=== PATIENT | male | born 1940 | race Caucasian/White ===

== ENCOUNTER 2017-05-17 20:20 | Inpatient (IN) | payer OTHER ==
[2017-05-17] MEDS ORDERED: ONDANSETRON 4 MG TABLET PO ONE (20:30)
[2017-05-17] MEDS ORDERED: ONDANSETRON *ODT* 4 MG TABLET ONE (20:35)
[2017-05-17 21:33] LABS: BASOPHIL 0.5 % (0-2.0); EOSINOPHIL 0.8 % (0-4.5); MCH 31.1 pg (25.7-33.7); MCHC 33.9 g/dl (32.0-35.9); MEAN CELL VOLUME 91.8 fl (80-96); MEAN PLT VOLUME 8.6 fl (7.5-11.1); NEUTROPHILS 81.2 % (42.8-82.8); PLATELET COUNT 281 K/MM3 (134-434); RDW 12.6 % (11.9-15.9); WHITE BLOOD COUNT 14.3 K/mm3 (4.0-10.0)
[2017-05-17 21:44] LABS: PROTHROMBIN TIME (PATIENT) 57.6 SEC (9.98-11.88)
[2017-05-17 22:01] LABS: INR 5.07 (0.82-1.09)
[2017-05-17] MEDS ORDERED: PHYTONADIONE 5 MG TABLET PO ONE (22:03)
--- NOTE | 2017-05-17 22:03 | PDOC ---
History of Present Illness - General History Source: Patient Exam Limitations: No Limitations - History of Present Illness Initial Comments: The patient is a 76 yo M poor historian with a past medical history significant for chronic AF on anticoagulation, emphysema with long history of cigarette smoking, diverticulitis, hypercholesterolemia, type 2 DM and HTN who presents with confusion. As per the patients daughter, she went to check on him after she didnt hear from him. He reports he hasnt gotten out of bed since yesterday. The patient states he lives alone. He endorses a decreased appetite. PCP: Dr. Castro <Alley Ivy - Last Filed: 05/17/17 22:17> <Saida Mathur - Last Filed: 05/18/17 03:49> - General Chief Complaint: Weakness Stated Complaint: WEAKNESS Time Seen by Provider: 05/17/17 20:26 Past History <Alley Ivy - Last Filed: 05/17/17 22:17> - Past Medical History Cardiac Disorders: Yes (A-FIB) Diabetes: Yes (NIDDM) GI Disorders: (divertivculitis) Hypercholesterolemia: Yes - Psycho/Social/Smoking Cessation Hx Anxiety: No Suicidal Ideation: No Smoking History: Current every day smoker Have you smoked in the past 12 months: Yes Number of Cigarettes Smoked Daily: 20 Information on smoking cessation initiated: No 'Breaking Loose' booklet given: 09/28/14 Hx Alcohol Use: No Drug/Substance Use Hx: No Substance Use Type: None <Saida Mathur - Last Filed: 05/18/17 03:49> - Past Medical History Allergies/Adverse Reactions: Allergies Allergy/AdvReac Type Severity Reaction Status Date / Time amoxicillin trihydrate Allergy Mild Verified 05/17/17 23:52 [From Augmentin] potassium clavulanate AdvReac Unknown Verified 05/17/17 23:52 [From Augmentin] Home Medications: Ambulatory Orders Unobtainable [Unobtainable] 05/17/17 Review of Systems - Review of Systems Able to Perform ROS?: No (Poor historian) <Alley Ivy - Last Filed: 05/17/17 22:17> *Physical Exam - Vital Signs Last Vital Signs Temp Pulse Resp BP Pulse Ox 98.8 F 63 18 158/77 96 05/17/17 20:30 05/17/17 20:30 05/17/17 20:30 05/17/17 20:30 05/17/17 20:30 - Physical Exam Comments: GENERAL: Well developed, well nourished. alert to person and place but not time. Afebrile. No acute distress. HEENT: Normocephalic, atraumatic. PERRLA, EOMI. No conjunctival pallor. Sclera are non- icteric. Moist mucous membranes. Oropharynx is clear. NECK: Supple. Full ROM. No JVD. Carotid pulses 2+ and symmetric, without bruits. No thyromegaly. No lymphadenopathy. CARDIOVASCULAR: Regular rate and rhythm. No murmurs, rubs, or gallops. Distal pulses are 2+ and symmetric. PULMONARY: No evidence of respiratory distress. Bilateral crackles. No wheezing, rales or rhonchi. ABDOMINAL: Soft. Non-tender. Non-distended. No rebound or guarding. No organomegaly. Normoactive bowel sounds. Old surgical scars on abdomen. MUSCULOSKELETAL Normal range of motion at all joints. No bony deformities or tenderness. No CVA tenderness. EXTREMITIES: No cyanosis. No clubbing. No edema. No calf tenderness. SKIN: Warm and dry. Normal capillary refill. No rashes. No jaundice. NEUROLOGICAL: Agnosia- unable to read a digital clock. Following commands. No other focal neurological deficits. PSYCHIATRIC: Cooperative. Good eye contact. Appropriate mood and affect. <Alley Ivy - Last Filed: 05/17/17 22:17> - Vital Signs Last Vital Signs Temp Pulse Resp BP Pulse Ox 98.8 F 63 18 158/77 96 05/17/17 20:30 05/17/17 20:30 05/17/17 20:30 05/17/17 20:30 05/17/17 20:30 <Saida Mathur - Last Filed: 05/18/17 03:49> ED Treatment Course - LABORATORY CBC & Chemistry Diagram: 05/17/17 21:27 05/17/17 21:27 - ADDITIONAL ORDERS Additional order review: Laboratory Results 05/17/17 21:22 INR 5.07 H* D 05/17/17 21:27 RBC 4.67 MCV 91.8 MCHC 33.9 RDW 12.6 MPV 8.6 Neutrophils % 81.2 Lymphocytes % 11.6 D Monocytes % 5.9 Eosinophils % 0.8 Basophils % 0.5 - Medications Given in the ED: ED Medications Discontinued Medications Generic Name Dose Route Start Last Admin Trade Name Freq PRN Reason Stop Dose Admin Ondansetron HCl 4 mg 05/17/17 20:30 05/17/17 20:32 Zofran - PO 05/17/17 20:31 4 mg ONCE ONE Administration <Alley Ivy - Last Filed: 05/17/17 22:17> - LABORATORY CBC & Chemistry Diagram: 05/17/17 21:27 05/17/17 22:53 - ADDITIONAL ORDERS Additional order review: Laboratory Results 05/17/17 21:22 INR 5.07 H* D 05/17/17 21:27 RBC 4.67 MCV 91.8 MCHC 33.9 RDW 12.6 MPV 8.6 Neutrophils % 81.2 Lymphocytes % 11.6 D Monocytes % 5.9 Eosinophils % 0.8 Basophils % 0.5 - RADIOLOGY Radiology Studies Ordered: Category Date Time Status HEAD CT WITHOUT CONTRAST [CT] Stat CT Scan 05/17/17 20:31 Ordered CHEST X-RAY PORTABLE* [RAD] Stat Radiology 05/17/17 20:30 Completed - Medications Given in the ED: ED Medications Discontinued Medications Generic Name Dose Route Start Last Admin Trade Name Freq PRN Reason Stop Dose Admin Ondansetron HCl 4 mg 05/17/17 20:30 05/17/17 20:32 Zofran - PO 05/17/17 20:31 4 mg ONCE ONE Administration <MathurSaida - Last Filed: 05/18/17 03:49> Medical Decision Making - Medical Decision Making 05/17/17 22:05 CXR shows pulmonary congestion EKG rate controlled afib 05/18/17 00:04 BUN/CR acute renal failure Dr. Castor's service called; I spoke to his PA Lonnie Pt will go to ICU; Dr Mathew Longo (nephrology) is on the case. 05/18/17 01:17 Patient Name: Valdemar Shafer THIS IS A PRELIMINARYREPORT FROM [facility] EXAM: CT brain without contrast IMAGES: 159 INDICATION: Altered mental status DATE OF SERVICE: 2017-05-17 23:34:09.0 COMPARISON: none FINDINGS: The ventricular system is midline and nondilated. Mild involutional changes are noted. There is no bleed, mass, extra-axial fluid collection or mass effect. No skull fracture or skull lesion is identified. There is a left maxillary sinus retention cyst or polyp and mild right ethmoid sinus sinus air-fluid levels. The visualized mastoid air cells are clear. IMPRESSION: No acute pathology. THIS DOCUMENT HAS BEEN ELECTRONICALLY SIGNED Head CT normal. Pt received 250 ml bolus saline; I will not give much more in the ER as he has congestion of his lungs and cardiomegaly Pt received ca gluconate, kayexxalate and insulin 10 U and D50 1 amp. 05/18/17 03:49 Py in ICU; accepted by ICU PA <Saida Mathur - Last Filed: 05/18/17 03:49> *DC/Admit/Observation/Transfer - Attestations Scribe Attestion: Documentation prepared by Alley Ivy, acting as manager medical writing for Saida Mathur MD/DO. <Alley Ivy - Last Filed: 05/17/17 22:17> - Discharge Dispostion Admit: Yes <Saida Mathur - Last Filed: 05/18/17 03:49> Diagnosis at time of Disposition: Generalized weakness, Dehydration, moderate, Acute renal failure, HTN ( hypertension), Atrial fibrillation with RVR, Hyperkalemia - Discharge Dispostion Condition at time of disposition: Poor - Referrals
[2017-05-17] MEDS ORDERED: PHYTONADIONE 5 MG TABLET ONE (22:27)
[2017-05-17 23:27] LABS: ALBUMIN 3.1 g/dl (3.4-5.0); ANION GAP 16 (8-16); BILIRUBIN,TOTAL 0.4 mg/dL (0.2-1.0); CALCIUM 8.6 mg/dL (8.5-10.1); CO2 17 mmol/L (21-32); GLUCOSE,RANDOM 86 mg/dL (74-106); SGPT/ALT 16 U/L (12-78); TOT PROT 6.2 g/dl (6.4-8.2)
[2017-05-17 23:38] LABS: ALK PHOS 72 U/L (45-117); CPK 116 IU/L (39-308); TROPONIN I < 0.02 ng/ml (0.00-0.05)
[2017-05-17 23:42] LABS: SGOT/AST 16 U/L (15-37)
[2017-05-17 23:43] LABS: CREATININE 11.6 mg/dL (0.7-1.3)
[2017-05-17] MEDS ORDERED: INSULIN REGULAR HUMAN 100 UNITS/ML *VIAL IVPUSH ONE (23:45)
[2017-05-17] MEDS ORDERED: DEXTROSE 50%-WATER - 25 GM/50 ML VIAL IVPUSH ONE (23:45)
[2017-05-17] MEDS ORDERED: CALCIUM GLUCONATE 10% - 1,000 MG/10 ML VIAL IVPB ONE (23:53)
[2017-05-17] MEDS ORDERED: SODIUM CHLORIDE 0.9% 500 ML INFUS.BAG IV ONE (23:54)
[2017-05-18] MEDS ORDERED: SODIUM POLYSTYRENE SULFONATE 15 GM/60 ML BOTTLE PO ONE (00:02)
[2017-05-18] MEDS ORDERED: DEXTROSE 50%-WATER 50 ML DISP.SYRIN ONE ×2 (00:39→09:14)
[2017-05-18] MEDS ORDERED: CALCIUM CHLORIDE 1 GM/10 ML *DISP.SYRIN ONE (00:39)
[2017-05-18] MEDS ORDERED: SODIUM POLYSTYRENE SULFONATE 15 GM/60 ML BOTTLE ONE (00:39)
[2017-05-18] MEDS ORDERED: HYDROmorphone HCL CARPU-JECT 1 MG/1 ML DISP.SYRIN ONE (03:42)
[2017-05-18] MEDS ORDERED: MIDAZOLAM HCL 2 MG/2 ML SINGLE DOSE VIAL ONE ×2 (03:51→06:11)
[2017-05-18] MEDS ORDERED: LIDOCAINE HCL 2% JELLY (30 ML/TUBE) TP ONE (03:52)
[2017-05-18] MEDS ORDERED: MIDAZOLAM HCL 2 MG/2 ML SINGLE DOSE VIAL IVPUSH ONE ×2 (03:53→04:28)
[2017-05-18] MEDS ORDERED: SODIUM CHLORIDE 0.9% 1000 ML INFUS.BAG IV ONE (03:58)
[2017-05-18] MEDS ORDERED: CALCIUM GLUCONATE 10% - 1,000 MG/10 ML VIAL IVPB ONE ×2 (04:28→09:00)
[2017-05-18] MEDS ORDERED: HYDROmorphone HCL CARPU-JECT 1 MG/1 ML DISP.SYRIN IVPUSH ONE (04:30)
[2017-05-18 05:19] VITALS: BMI 31.9
[2017-05-18 06:31] LABS: PROTHROMBIN TIME (PATIENT) 53.9 SEC (9.98-11.88)
[2017-05-18 06:41] LABS: INR 4.75 (0.82-1.09)
[2017-05-18 06:44] LABS: MAGNESIUM 2.5 mg/dL (1.8-2.4)
--- NOTE | 2017-05-18 07:04 | CONSULT ---
Consult - text type - Consultation Consultation Note: PULM/CCM Pt seen and examined in the ICU CC: Altered mental status Hx obtained from pt (poor historian/altered) and medical record. No Family available HPI: Mr Shafer is a 76 yo M with past medical history significant for chronic AF on anticoagulation/coumadin, emphysema , diverticulitis, hypercholesterolemia, type 2 DM and HTN who presented from home with confusion. ED reports pts daughter went to check on him after she didnt hear from him for > 24hrs. He lives alone and has sporatic help from family. Though confused pt states he had poor intake for last few days, unable to say why. On finding pt altered family brought pt to ED. In ED pt was normothermic, hypertensive, without resp distress, spo2 93% RA. Pt was agitated and altered. CT head was unremarkable. Labs were notable for BUN/ CR 109/11 (Cr previous 0.9), Hco3 17, K 7.8. INR 5 Dig level slightly elevated. There was no QRS widening or other acute hyperkalemic EKG changes. Pt received Insulin/D50, Ca++, NaHCO3 and kayexalate. Received vit K for INR. WBC was 14. H /H 14/42. Pt was transferred to ICU for further care and likely urgent [facility]. In ICU pt was agaitated, intermittently combative. He required sedatives for dutton insertion, with only trace UOP. Pt appeared clinically dry, IV fluid given. Afebrile and no localizing complaints, no abx given. CXR with some ? vascular congestion but no focal infiltrate. Nephrology consult called. 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, Vital Signs Temp 98.5 F 05/18/17 03:00 Pulse 79 05/18/17 04:00 Resp 18 05/18/17 04:00 BP 170/72 05/18/17 04:00 Pulse Ox 96 05/18/17 04:00 Intake & Output 05/17/17 05/17/17 05/18/17 11:59 23:59 11:59 Output Total 35 Balance -35 Weight 130.181 kg 118.977 kg Output: Urine 35 Dutton 35 Other: Voiding Method Urinal Urinal Height 6 ft 4 in 6 ft 4 in Body Mass Index (BMI) 34.9 31.9 Weight Measurement Method Est/Stated by Patient Ambulatory Orders Unobtainable [Unobtainable] 05/17/17, know to be on coumadin Active Medications Chlorhexidine Gluconate (Hibiclens For Decolonization -) 1 applic TP HS BURKE Diltiazem HCl (Cardizem Cd -) 120 mg PO DAILY BURKE Metoprolol Tartrate (Lopressor -) 50 mg PO BID BURKE Mupirocin (Bactroban Ointment (For Decolonization) -) 1 applic NS BID BURKE Stop: 05/23/17 09:59 Lab Results WBC 14.3 K/mm3 (4.0-10.0) H D 05/17/17 21:27 RBC 4.67 M/mm3 (4.00-5.60) 05/17/17 21:27 Hgb 14.5 GM/dL (11.7-16.9) D 05/17/17 21:27 Hct 42.9 % (35.4-49) 05/17/17 21:27 MCV 91.8 fl (80-96) 05/17/17 21:27 MCHC 33.9 g/dl (32.0-35.9) 05/17/17 21:27 RDW 12.6 % (11.9-15.9) 05/17/17 21:27 Plt Count 281 K/MM3 (134-434) 05/17/17 21:27 Sodium 132 mmol/L (136-145) L 05/17/17 22:53 Potassium 7.8 mmol/L (3.5-5.1) H* D 05/17/17 22:53 Chloride 99 mmol/L (98-107) 05/17/17 22:53 Carbon Dioxide 17 mmol/L (21-32) L D 05/17/17 22:53 Anion Gap 16 (8-16) 05/17/17 22:53 BUN 109 mg/dL (7-18) H* D 05/17/17 22:53 Creatinine 11.6 mg/dL (0.7-1.3) H* D 05/17/17 22:53 Random Glucose 86 mg/dL (74-106) 05/17/17 22:53 Calcium 8.6 mg/dL (8.5-10.1) 05/17/17 22:53 INR 4.75 (0.82-1.09) H* 05/18/17 05:50 Dig 2.05 PE: Neuro: awake, answers simple questions, A & O to self only, agitated, perseverating, STALEY X 4 HEENT: PERRL, dry oral mucosa, flat neck veins, no thrush PULM: clear anteriorly, no wheezes, no distress CV: irreg, no m/r/g appreciated ABD: soft, NT, ND EXT: no edema, no rash A/ 76 y/o man with hx of htn, afib on A/c presenting with uremic encephalopathy and acute renal failure P/ -medical management of hyperkalemia, BID EKG -volume resuscitation -check urine lytes and urinalysis -renal US -will discuss HD with nephrology, will place cath if no UOP -broader renal workup depending on response to volume -cont to hold coumadin, slow correction with Vit K -low threshold for abx -hold dig in setting of renal failure -obtain hx from family when available -ICU monitoring -add ppi due to renal failure and super therapeutic INR -? etoh hx, monitor for s/s of withdrawal, CIWA gavin Bean [facility] [id number] Critical Care Total Critical Care Time (in minutes): 35 Critical Care Statement: The care of this patient involved high complexity decision making to prevent further life threatening deterioration of the patient 's condition and/or to evalute & treat vital organ system(s) failure or risk of failure.
[2017-05-18] MEDS ORDERED: PHYTONADIONE 10 MG/1 ML AMP IVPB ONE (07:42)
--- NOTE | 2017-05-18 07:42 | CON.NEP ---
Consult Consult Specialty:: Nephrolgoy Referred by:: Gloria Reason for Consultation:: Acute Renal Failure - History of Present Illness Chief Complaint: Altered Mental Status History of Present Illness: This is a 76 year old gentleman with PMhx of Afib on Coumadin, COPD, Hyperlipidemia, DM Type 2, Hypertension who presented with AMS and found to have BUN/Cr of 109/11 and K of 7.8. Pt with baseline Cr of 0.8 11/2015. Daughter who talks to the patient over the phone daily was not able to contact him for 24 hours and when she checked on him was very confused and not himself. No hx of CKD reported. Pt very agitated overnight but when asked about NSAID use he denied it. Pt given 2L of NS overnight and pt has no urine output via the dutton catheter. Hyperkalemia treated medically overnight with Insulin/Calcium Gluconate/Kayexalate/IVF. 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 Travel: No Home Medications - Allergies Allergies/Adverse Reactions: Allergies Allergy/AdvReac Type Severity Reaction Status Date / Time amoxicillin trihydrate Allergy Mild Verified 05/17/17 23:52 [From Augmentin] potassium clavulanate AdvReac Unknown Verified 05/17/17 23:52 [From Augmentin] - Home Medications Home Medications: Ambulatory Orders Unobtainable [Unobtainable] 05/17/17 Family Disease History - Family Disease History Family History: Unable to Obtain Review of Systems Unable to obtain ROS, reason: pt is confused Nephrology Consult - Height Height: 6 ft 4 in - Weight Weight: 262 lb 4.8 oz - BMI Body Mass Index (BMI): 31.9 - Lab Results Anion Gap: Anion Gap Anion Gap 16 (8-16) 05/17/17 22:53 - Imaging Chest X-ray: Report Reviewed, Image Reviewed - Physical Examination Vital Signs: Vital Signs Temperature 98.5 F 05/18/17 03:00 Pulse Rate 79 05/18/17 04:00 Respiratory Rate 18 05/18/17 04:00 Blood Pressure 170/72 05/18/17 04:00 O2 Sat by Pulse Oximetry (%) 96 05/18/17 04:00 Constitutional: Yes: No Distress HENT: Yes: Atraumatic Neck: Yes: Supple Cardiovascular: Yes: Regular Rate and Rhythm, S1, S2. No: JVD, Murmur, Rub Respiratory: Yes: Regular, CTA Bilaterally, Diminished. No: Rales, Rhonchi Gastrointestinal: Yes: Normal Bowel Sounds, Soft, Abdomen, Obese. No: Tenderness Renal/: Yes: Anuria, Dutton Present. No: Bladder Distention, CVA Tenderness - Left, Hematuria Edema: No Neurological: Yes: Confusion. No: Alert, Oriented, Asterixis Problem List - Problems (1) Acute renal failure Code(s): N17.9 - ACUTE KIDNEY FAILURE, UNSPECIFIED (2) Atrial fibrillation with RVR Code(s): I48.91 - UNSPECIFIED ATRIAL FIBRILLATION (3) HTN (hypertension) Code(s): I10 - ESSENTIAL (PRIMARY) HYPERTENSION (4) Hyperkalemia Code(s): E87.5 - HYPERKALEMIA (5) Uremia Code(s): N19 - UNSPECIFIED KIDNEY FAILURE (6) Metabolic acidosis Code(s): E87.2 - ACIDOSIS (7) Hyperphosphatemia Code(s): E83.39 - OTHER DISORDERS OF PHOSPHORUS METABOLISM (8) Hyponatremia Code(s): E87.1 - HYPO-OSMOLALITY AND HYPONATREMIA Assessment/Plan 76 year old gentleman with PMhx of Afib on Coumadin, COPD, Hyperlipidemia, DM Type 2, Hypertension who presented with AMS and found to have BUN/Cr of 109/11 and K of 7.8. #Acute Renal failure with hyperkalemia Differential includes ATN (severe volume depletion +/- medication) vs. obstruction vs. GN (less likely) CPK is within normal limtis so less likely Rhabdo EKG showed no peaked T-waves, no wide QRS s/p IVF last night w/o improvement in renal function Urine studies are pending Check Tox screen Dutton in place pt with persistent hyperkalmeia refractory to medical management and uremia and thus required emergent dialysis Will plan for dialysis today and tomorrow Renal diet Discussed dialysis with daughter who agrees to proceed. She is aware of the complications of dialysis and dialysis catheter insertion including but not limited to bleeding, pneumothorax, hypotension, and allergic reactions. Given pt had normal renal function last year, expected that this is a acute process and that he should recover his renal function Dose all meds for Cr Cl less then 10 Keep MAP > 65 #Metabolic acidosis in setting of renal failure Check ABG may warrent bicarb if ph < 7.2 #Leukocytosis Check blood and urine cultures
[2017-05-18 07:55] LABS: ANION GAP 15 (8-16); BILIRUBIN,TOTAL 0.3 mg/dL (0.2-1.0); CALCIUM 8.2 mg/dL (8.5-10.1); CO2 16 mmol/L (21-32); GLUCOSE,RANDOM 83 mg/dL (74-106); SGOT/AST 9 U/L (15-37); SGPT/ALT 16 U/L (12-78)
[2017-05-18 08:00] LABS: ALK PHOS 65 U/L (45-117)
[2017-05-18 08:37] LABS: BASOPHIL 0.7 % (0-2.0); EOSINOPHIL 0.9 % (0-4.5); MCH 31.3 pg (25.7-33.7); MCHC 33.9 g/dl (32.0-35.9); MEAN CELL VOLUME 92.2 fl (80-96); MEAN PLT VOLUME 8.5 fl (7.5-11.1); NEUTROPHILS 81.1 % (42.8-82.8); PLATELET COUNT 259 K/MM3 (134-434); WHITE BLOOD COUNT 13.3 K/mm3 (4.0-10.0)
--- NOTE | 2017-05-18 08:41 | PROC ---
Central Line Insertion Indication: Other (Hemodialysis) Risks and Benefits Explained: Yes Consent on Chart: Yes (Daughter via phone) Central Line: Dialysis Cath, Tri Lumen Anesthesia: 1% Lidocaine Sterile Technique: Yes Ultrasound Guided Assistance: Yes Position: Right Internal Jugular Post Insertion: Yes: Bilateral Breath Sounds, Chest X-Ray Ordered Sterile Dressing Applied: Yes Remarks: required ativan 2mg IV as agitated, combative, and coagulopathic
[2017-05-18] MEDS ORDERED: INSULIN REGULAR HUMAN 100 UNITS/ML *VIAL IVPUSH ONE (09:00)
[2017-05-18] MEDS ORDERED: SODIUM POLYSTYRENE SULFONATE 15 GM/60 ML BOTTLE RC ONE (09:00)
[2017-05-18] MEDS ORDERED: DEXTROSE 50%-WATER - 25 GM/50 ML VIAL IVPUSH ONE (09:00)
[2017-05-18 09:26] LABS: ARTERIAL BLD GAS O2 SATURATION 96.7 % (90-98.9); ARTERIAL BLOOD GAS HCO3 15.1 meq/L (22-26); ARTERIAL BLOOD GAS PO2 90.1 mmHg (70-100)
[2017-05-18 09:31] LABS: ALLENS TEST POSITIVE; ART PUNCT SITE LEFT RADIAL; LPM/O2% 2L; PT. ON O2? YES; TYPE OF O2 NASAL
[2017-05-18] MEDS: MUPIROCIN 2% TOPICAL OINTMENT FOR DECOLONIZATION NS SCH ×2 (09:33→21:25)
[2017-05-18 09:58] LABS: URINE APPEARANCE SLCLOUDY; URINE BILIRUBIN NEGATIVE (NEGATIVE); URINE BLOOD 1+ (NEGATIVE); URINE COLOR LTYELLOW; URINE GLUCOSE (UA) NEGATIVE (NEGATIVE); URINE KETONE TRACE (NEGATIVE); URINE LEUK ESTERASE NEGATIVE (NEGATIVE); URINE NITRITE NEGATIVE (NEGATIVE); URINE UROBILINOGEN NEGATIVE mg/dL (0.2-1.0)
[2017-05-18 10:00] LABS: URINE PROTEIN 1+ (NEGATIVE)
[2017-05-18] MEDS ORDERED: HEPARIN NA (PORCINE) 5,000 UNITS/ML 1ML VIAL SQ SCH (10:00)
[2017-05-18 10:07] LABS: URINE BACTERIA RARE /hpf (NONE SEEN); URINE MUCUS RARE; URINE RBC 4 /hpf (0-3)
[2017-05-18 11:12] LABS: URINE CREATININE 56.1 mg/dL (20-370)
[2017-05-18] MEDS ORDERED: hydrALAZINE HCL 20 MG/ML VIAL IVPUSH PRN (14:21)
--- NOTE | 2017-05-18 15:09 | CON.CARD ---
Consult Consult Specialty:: Cardiology Reason for Consultation:: Renal Failure - History of Present Illness History of Present Illness: 76 M with chronic Afib who was admitted with mental status changes. As per EMR he had been on coumadin. He has acute renal failure with refractory hyperkalemia , an initial INR 5 and Digoxin was 2. Previous echocardiogram in 2016 was normal. There is no reported history of CAD. CXR showed interstitial markings. He is post emergent Dialysis. Currently, he is somnolent, opens eyes but easily falls asleep. 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 Travel: No Home Medications - Allergies Allergies/Adverse Reactions: Allergies Allergy/AdvReac Type Severity Reaction Status Date / Time amoxicillin trihydrate Allergy Mild Verified 05/17/17 23:52 [From Augmentin] potassium clavulanate AdvReac Unknown Verified 05/17/17 23:52 [From Augmentin] - Home Medications Home Medications: Ambulatory Orders Unobtainable [Unobtainable] 05/17/17 Review of Systems Unable to obtain ROS, reason: Altered MS Vital Signs: Vital Signs Temperature 98.8 F 05/18/17 12:10 Pulse Rate 97 H 05/18/17 14:45 Respiratory Rate 22 05/18/17 14:45 Blood Pressure 178/113 05/18/17 14:45 O2 Sat by Pulse Oximetry (%) 96 05/18/17 12:00 Constitutional: Yes: Mild Distress HENT: Yes: Atraumatic, Normocephalic Respiratory: Yes: CTA Bilaterally Gastrointestinal: Yes: Normal Bowel Sounds, Soft Cardiovascular: Yes: Pulse Irregular Heart Sounds: Yes: S1, S2 Edema: No Peripheral Pulses WNL: Yes Neurological: Yes: Lethargy - Other Data Labs, Other Data: CBC, BMP 05/18/17 05:50 05/18/17 05:50 INR, PTT INR 4.75 (0.82-1.09) H* 05/18/17 05:50 Laboratory Tests 05/17/17 05/18/17 21:27 05:50 INR 4.75 H* Digoxin 2.1839 H Echo: Report Reviewed Ejection Fraction %: LVEF > or = 40 % Imaging - Results Chest X-ray: Report Reviewed Problem List - Problems (1) Acute renal failure Code(s): N17.9 - ACUTE KIDNEY FAILURE, UNSPECIFIED (2) Atrial fibrillation with RVR Code(s): I48.91 - UNSPECIFIED ATRIAL FIBRILLATION (3) HTN (hypertension) Code(s): I10 - ESSENTIAL (PRIMARY) HYPERTENSION Assessment/Plan 76 M with chronic Afib on digoxin and reportedly on coumadin admitted with acute renal failure with severe hyperkalemia and mild volume overload. He is post emergent HD. 1. elevated Digoxin level. Without overt toxicity. Continue to follow. Digibind is not indicated at this time. 2. HR controlled on BB and CCB 3. To go for a repeat head CT given continued MS change. INR improving with conservative management. Holding coumadin 4. Suggest repeating echocardiogram to reassess EF.
[2017-05-18 15:10] LABS: ARTERIAL BLD GAS O2 SATURATION 97.9 % (90-98.9); ARTERIAL BLOOD GAS BASE EXCESS -3.6 meq/l (-2-2); ARTERIAL BLOOD GAS pH 7.35 (7.35-7.45)
[2017-05-18 15:13] LABS: LPM/O2% 3L; PT. ON O2? YES; TYPE OF O2 NASAL O2
[2017-05-18 15:14] LABS: ARTERIAL BLOOD GAS HCO3 21.2 meq/L (22-26)
[2017-05-18] MEDS: METOPROLOL TARTRATE 50 MG TABLET (FP) PO SCH ×2 (16:50→21:25)
--- NOTE | 2017-05-18 16:53 | HP ---
Admitting History and Physical - Primary Care Physician PCP: Maye Castro - Admission Chief Complaint: AMS History of Present Illness: The patient is a 76 yo M poor historian with a past medical history significant for chronic AF on anticoagulation, emphysema with long history of cigarette smoking, diverticulitis, hyperlipidemia, type 2 DM and HTN who presented to [facility] ED with confusion. As per patient's tenant in the room, his daughter Fidel called the tenant to check on his father because she had not spoken to him over 24 hours. After the tenant went in the apartment to check on the patient, patient was lying in bed, lethargic but responsive, saying he doesn't feel good. Tenant called the ambulance, patient was awake and alert and was able to transfer himself. After coming to the ER, he slowly deteriorated. He was found to be in acute renal failure, emergent dialysis was needed. Nephrology was called in. 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 Travel: No Home Medications - Allergies Allergies/Adverse Reactions: Allergies Allergy/AdvReac Type Severity Reaction Status Date / Time amoxicillin trihydrate Allergy Mild Verified 05/17/17 23:52 [From Augmentin] potassium clavulanate AdvReac Unknown Verified 05/17/17 23:52 [From Augmentin] - Home Medications Home Medications: Ambulatory Orders Unobtainable [Unobtainable] 05/17/17 Review of Systems Unable to obtain ROS, reason: unable obtain due Physical Examination Vital Signs: Vital Signs Temperature 98.8 F 05/18/17 12:10 Pulse Rate 90 05/18/17 16:00 Respiratory Rate 18 05/18/17 16:00 Blood Pressure 179/87 05/18/17 16:00 O2 Sat by Pulse Oximetry (%) 96 05/18/17 12:00 Constitutional: Yes: Well Nourished, No Distress, Calm Cardiovascular: Yes: Regular Rate and Rhythm Respiratory: Yes: Regular Gastrointestinal: Yes: Normal Bowel Sounds Musculoskeletal: Yes: WNL Extremities: Yes: WNL Edema: No Peripheral Pulses WNL: Yes Neurological: Yes: Alert (responds to name), Confusion, Lethargy Psychiatric: Yes: Alert Labs: CBC, BMP 05/18/17 05:50 05/18/17 05:50 Problem List - Problems (1) Acute renal failure Assessment/Plan: -dialysis this afternoon -nephrology on case -repeat labs Code(s): N17.9 - ACUTE KIDNEY FAILURE, UNSPECIFIED (2) Atrial fibrillation with RVR Assessment/Plan: -chronic - hold AC for now Code(s): I48.91 - UNSPECIFIED ATRIAL FIBRILLATION (3) Dehydration, moderate Code(s): E86.0 - DEHYDRATION (4) Generalized weakness Code(s): R53.1 - WEAKNESS (5) Hyperkalemia Assessment/Plan: gradually improving dialysis again in AM Code(s): E87.5 - HYPERKALEMIA (6) HTN (hypertension) Assessment/Plan: IV hydralazine PRN Code(s): I10 - ESSENTIAL (PRIMARY) HYPERTENSION Assessment/Plan dialysis labs nephrology consult hold AC IV hydralazine PRN for HTN GI prophylaxis
[2017-05-18 19:03] LABS: BASOPHIL 0.3 % (0-2.0); EOSINOPHIL 0.4 % (0-4.5); MCH 31.5 pg (25.7-33.7); MCHC 34.3 g/dl (32.0-35.9); MEAN CELL VOLUME 91.7 fl (80-96); MEAN PLT VOLUME 8.6 fl (7.5-11.1); NEUTROPHILS 85.2 % (42.8-82.8); PLATELET COUNT 242 K/MM3 (134-434); RDW 12.8 % (11.9-15.9); WHITE BLOOD COUNT 15.6 K/mm3 (4.0-10.0)
[2017-05-18 19:35] LABS: ANION GAP 12 (8-16); CALCIUM 8.5 mg/dL (8.5-10.1); CO2 21 mmol/L (21-32); GLUCOSE,RANDOM 102 mg/dL (74-106); SGOT/AST 11 U/L (15-37); SGPT/ALT 16 U/L (12-78)
[2017-05-18 19:41] LABS: ALK PHOS 65 U/L (45-117); BILIRUBIN,TOTAL 0.6 mg/dL (0.2-1.0); TOT PROT 5.9 g/dl (6.4-8.2)
[2017-05-18 19:43] LABS: CREATININE 9.5 mg/dL (0.7-1.3)
[2017-05-18] MEDS ORDERED: LABETALOL HCL 5 MG/1 ML (100MG/20 ML VIAL) IVPUSH ONE (20:54)
[2017-05-18] MEDS: CHLORHEXIDINE GLUCONATE 4% CLEANSER FOR DECOLONIZATION TP SCH (21:25)
--- NOTE | 2017-05-19 06:29 | PN ---
Progress Note (short form) - Note Progress Note: PULMONARY/CRITICAL CARE FOLLOW UP: Pt seen and examined in the ICU - on hemodialysis 24HOUR EVENTS: -Tolerated 1st session of HD, more awake, but remains uremic - repeat head CT negative -Getting HD again now -Minimal UOP Current Medications Chlorhexidine Gluconate (Hibiclens For Decolonization -) 1 applic TP HS [facility] Last Admin: 05/18/17 21:25 Dose: 1 applic Diltiazem HCl (Cardizem Cd -) 120 mg PO DAILY [facility] Last Admin: 05/18/17 16:50 Dose: Not Given Hydralazine HCl (Apresoline Injection -) 20 mg IVPUSH Q6H PRN PRN Reason: HYPERTENSION Last Admin: 05/18/17 16:52 Dose: 20 mg Pantoprazole Sodium (Protonix 40mg Ivpb (Pre-Docked)) 100 mls @ 200 mls/hr IVPB DAILY [facility] Lorazepam (Ativan Injection -) 1 mg IVPUSH Q4H PRN PRN Reason: ANXIETY Stop: 05/19/17 07:49 Last Admin: 05/18/17 08:00 Dose: 1 mg Metoprolol Tartrate (Lopressor -) 50 mg PO BID [facility] Last Admin: 05/18/17 21:25 Dose: Not Given Mupirocin (Bactroban Ointment (For Decolonization) -) 1 applic NS BID [facility] Stop: 05/23/17 09:59 Last Admin: 05/18/17 21:25 Dose: 1 applic Vital Signs Temp 98.5 F 05/19/17 05:55 Pulse 98 H 05/19/17 06:00 Resp 17 05/19/17 06:00 BP 177/80 05/19/17 06:00 Pulse Ox 99 05/18/17 20:00 Intake & Output 05/18/17 05/18/17 05/19/17 06:59 18:59 06:59 Intake Total 1999 200 Output Total 70 25 50 Balance 1930 175 -50 Weight 118.977 kg 118.977 kg Intake: IV 2000 NS bolus 1000 Calcium gluconate 1000 IVPB 200 Output: Urine 70 25 50 [place] 70 25 50 Other: Voiding Method Urinal Indwelling Catheter Indwelling Catheter Bowel Movement No No Height 6 ft 4 in 6 ft 4 in Body Mass Index (BMI) 31.9 31.9 Weight Measurement Method Est/Stated by Patient PE: Neuro: awake, answers some questions, follows commands, but only oriented to person HEENT: PERRL, dry oral mucosa PULM: clear anteriorly, no wheezes, no distress CV: irreg, no m/r/g appreciated ABD: soft, NT, ND EXT: no edema, no rash Labs: pending ASSESSMENT 76 y/o man with hx of htn, afib on A/c presenting with uremic encephalopathy and acute renal failure of unclear origin PLAN -HD per renal -renal US pending -cont to hold coumadin, restart or use Heparin drip once INR <2.0 -low threshold for abx -hold dig in setting of renal failure - will use Dilt for rate control -obtain hx from family when available -ICU monitoring -GI PPx -? etoh hx, monitor for s/s of withdrawal Continue to monitor in ICU Critically Ill 35min Baltazar August Pulm/Critical Care [employer] [id number]
[2017-05-19 06:31] LABS: MCH 31.4 pg (25.7-33.7); MCHC 34.4 g/dl (32.0-35.9); MEAN CELL VOLUME 91.4 fl (80-96); MEAN PLT VOLUME 7.9 fl (7.5-11.1); PLATELET COUNT 229 K/MM3 (134-434); RDW 12.6 % (11.9-15.9); WHITE BLOOD COUNT 14.3 K/mm3 (4.0-10.0)
[2017-05-19 07:16] LABS: ALBUMIN 2.9 g/dl (3.4-5.0); ALK PHOS 64 U/L (45-117); ANION GAP 13 (8-16); BILIRUBIN,TOTAL 0.5 mg/dL (0.2-1.0); CALCIUM 8.3 mg/dL (8.5-10.1); CO2 21 mmol/L (21-32); GLUCOSE,RANDOM 78 mg/dL (74-106); MAGNESIUM 2.3 mg/dL (1.8-2.4); PHOSPHOROUS 6.7 mg/dL (2.5-4.9); SGOT/AST 15 U/L (15-37); SGPT/ALT 17 U/L (12-78); TOT PROT 5.7 g/dl (6.4-8.2)
[2017-05-19] MEDS ORDERED: HEPARIN NA (PORCINE) 5,000 UNITS/ML 1ML VIAL IVPUSH ONE (07:26)
[2017-05-19 07:40] LABS: CREATININE 10.8 mg/dL (0.7-1.3)
[2017-05-19] MEDS: HEPARIN NA (PORCINE) 5,000 UNITS/ML 1ML VIAL IVPUSH SCH ×3 (08:00→08:33)
[2017-05-19 08:10] LABS: HEP B SURFACE AB Non Reactive (.)
--- NOTE | 2017-05-19 08:12 | EKG ---
Test Reason : Blood Pressure : / mmHG Vent. Rate : 058 BPM Atrial Rate : 250 BPM P-R Int : 000 ms QRS Dur : 100 ms QT Int : 372 ms P-R-T Axes : 000 -45 021 degrees QTc Int : 365 ms POOR DATA QUALITY, INTERPRETATION MAY BE ADVERSELY AFFECTED ATRIAL FIBRILLATION WITH SLOW VENTRICULAR RESPONSE LEFT AXIS DEVIATION ABNORMAL ECG WHEN COMPARED WITH ECG OF 30-NOV-2015 08:57, VENT. RATE HAS DECREASED BY 49 BPM QT HAS SHORTENED Confirmed by DWIGHT ELIZABETH, JUAN PABLO ([id number]) on 05/19/2017 8:12:15 AM Referred By: Confirmed By:JUAN PABLO QUINTANILLA MD
--- NOTE | 2017-05-19 08:45 | PN ---
Progress Note (short form) - Note Progress Note: Renal Follow up for SILAS Pt seen and examined in the ICU on dialysis awake and alert but confused dialysis via IJ catheter, good flow, BP stable will extend Hd tx by 30 minutes as pt with K of 6.2 very agitated yesterday Vital Signs Temperature 97.6 F 05/19/17 07:06 Pulse Rate 98 H 05/19/17 08:35 Respiratory Rate 18 05/19/17 08:35 Blood Pressure 156/75 05/19/17 08:35 O2 Sat by Pulse Oximetry (%) 99 05/18/17 20:00 Intake & Output 05/16/17 05/17/17 05/18/17 05/19/17 23:59 23:59 23:59 23:59 Intake Total 2200 Output Total 115 30 Balance 2084 Weight 287 lb 262 lb 4.8 oz 259 lb Gen: awake and alert but confused CVS: tachycardic no murmur or rub Lungs: CTA, anterior exam Abd: soft NT/ND Ext: No edema, clubbing or cyanosis : no bladder distension, dutton catheter in place CBC, BMP 05/19/17 06:00 05/19/17 06:00 Laboratory Tests 05/19/17 06:00 Calcium 8.3 L Albumin 2.9 L Current Medications Chlorhexidine Gluconate (Hibiclens For Decolonization -) 1 applic TP HS [facility] Last Admin: 05/18/17 21:25 Dose: 1 applic Diltiazem HCl (Cardizem Cd -) 120 mg PO DAILY [facility] Last Admin: 05/18/17 16:50 Dose: Not Given Heparin Sodium (Porcine) (Heparin -) 500 unit IVPUSH Q1H [facility] Stop: 05/19/17 09:31 Last Admin: 05/19/17 08:33 Dose: Not Given Hydralazine HCl (Apresoline Injection -) 20 mg IVPUSH Q6H PRN PRN Reason: HYPERTENSION Last Admin: 05/18/17 16:52 Dose: 20 mg Pantoprazole Sodium (Protonix 40mg Ivpb (Pre-Docked)) 100 mls @ 200 mls/hr IVPB DAILY [facility] Metoprolol Tartrate (Lopressor -) 50 mg PO BID [facility] Last Admin: 05/18/17 21:25 Dose: Not Given Mupirocin (Bactroban Ointment (For Decolonization) -) 1 applic NS BID [facility] Stop: 05/23/17 09:59 Last Admin: 05/18/17 21:25 Dose: 1 applic A/P 76 year old gentleman with PMhx of Afib on Coumadin, COPD, Hyperlipidemia, DM Type 2, Hypertension who presented with AMS and found to have BUN/Cr of 109/11 and K of 7.8. #Acute Renal failure with hyperkalemia Etiology of SILAS is likey ATN (severe volume depletion +/- medication) FeNa was 9% indicating tubular injury CPK is within normal limits so less likely Rhabdo currently getting 2nd HD treatment pt remains oliguric continue IVF Keep MAP> 65 avoid nephrotoxins will continue HD as needed Donta Carmona Problem List - Problems (1) Acute renal failure Code(s): N17.9 - ACUTE KIDNEY FAILURE, UNSPECIFIED (2) Atrial fibrillation with RVR Code(s): I48.91 - UNSPECIFIED ATRIAL FIBRILLATION (3) HTN (hypertension) Code(s): I10 - ESSENTIAL (PRIMARY) HYPERTENSION (4) Hyperkalemia Code(s): E87.5 - HYPERKALEMIA (5) Uremia Code(s): N19 - UNSPECIFIED KIDNEY FAILURE (6) Metabolic acidosis Code(s): E87.2 - ACIDOSIS (7) Hyperphosphatemia Code(s): E83.39 - OTHER DISORDERS OF PHOSPHORUS METABOLISM (8) Hyponatremia Code(s): E87.1 - HYPO-OSMOLALITY AND HYPONATREMIA
[2017-05-19] MEDS ORDERED: METOPROLOL TARTRATE 5 MG/5 ML VIAL ONE (10:54)
[2017-05-19] MEDS: METOPROLOL TARTRATE 5 MG/5 ML VIAL IVPUSH SCH ×2 (10:56→22:02)
[2017-05-19] MEDS: MUPIROCIN 2% TOPICAL OINTMENT FOR DECOLONIZATION NS SCH ×2 (10:57→22:03)
[2017-05-19] MEDS: PANTOPRAZOLE SODIUM 100 ML IVPB SCH (10:58)
[2017-05-19 11:19] LABS: EOSINOPHIL 1.7 % (0-4.5); NEUTROPHILS 78.9 % (42.8-82.8)
[2017-05-19 11:20] LABS: BASOPHIL 0.5 % (0-2.0)
[2017-05-19 11:44] LABS: BASOPHIL 0.4 % (0-2.0); MCH 30.9 pg (25.7-33.7); MCHC 33.9 g/dl (32.0-35.9); MEAN CELL VOLUME 91.4 fl (80-96); MEAN PLT VOLUME 7.6 fl (7.5-11.1); PLATELET COUNT 212 K/MM3 (134-434); RDW 12.9 % (11.9-15.9)
[2017-05-19 11:57] LABS: INR 1.36 (0.82-1.09)
[2017-05-19 12:10] LABS: ALBUMIN 2.8 g/dl (3.4-5.0); ANION GAP 10 (8-16); BILIRUBIN,TOTAL 0.5 mg/dL (0.2-1.0); CALCIUM 7.8 mg/dL (8.5-10.1); CO2 26 mmol/L (21-32); GLUCOSE,RANDOM 112 mg/dL (74-106); SGOT/AST 13 U/L (15-37); SGPT/ALT 18 U/L (12-78); TOT PROT 5.4 g/dl (6.4-8.2)
[2017-05-19 12:16] LABS: ALK PHOS 64 U/L (45-117)
[2017-05-19 12:49] LABS: CREATININE 8.2 mg/dL (0.7-1.3)
--- NOTE | 2017-05-19 15:38 | PN ---
Progress Note, Physician Chief Complaint: AMS, hyperkalemia, Acute renal failure History of Present Illness: The patient is a 76 yo M poor historian with a past medical history significant for chronic AF on anticoagulation, emphysema with long history of cigarette smoking, diverticulitis, hyperlipidemia, type 2 DM and HTN who presented to [facility] ED with confusion. As per patient's tenant in the room, his daughter Fidel called the tenant to check on his father because she had not spoken to him over 24 hours. After the tenant went in the apartment to check on the patient, patient was lying in bed, lethargic but responsive, saying he doesn't feel good. Tenant called the ambulance, patient was awake and alert and was able to transfer himself. After coming to the ER, he slowly deteriorated. He was found to be in acute renal failure, emergent dialysis was needed. Nephrology was called in. He received second dialysis today, is doing better, alert but still confused, lethargic. - Current Medication List Current Medications: Active Medications Chlorhexidine Gluconate (Hibiclens For Decolonization -) 1 applic TP HS [facility] Last Admin: 05/18/17 21:25 Dose: 1 applic Diltiazem HCl (Cardizem Cd -) 120 mg PO DAILY [facility] Last Admin: 05/18/17 16:50 Dose: Not Given Heparin Sodium (Porcine) (Heparin -) 5,000 unit SQ BID [facility] Hydralazine HCl (Apresoline Injection -) 20 mg IVPUSH Q6H PRN PRN Reason: HYPERTENSION Last Admin: 05/18/17 16:52 Dose: 20 mg Pantoprazole Sodium (Protonix 40mg Ivpb (Pre-Docked)) 100 mls @ 200 mls/hr IVPB DAILY [facility] Last Admin: 05/19/17 10:58 Dose: 200 mls/hr Metoprolol Tartrate (Lopressor Injection -) 10 mg IVPUSH BID [facility] Last Admin: 05/19/17 10:56 Dose: 10 mg Mupirocin (Bactroban Ointment (For Decolonization) -) 1 applic NS BID [facility] Stop: 05/23/17 09:59 Last Admin: 05/19/17 10:57 Dose: 1 applic Warfarin Sodium (Coumadin -) 5 mg PO DAILY@1800 [facility] - Objective Vital Signs: Vital Signs Temperature 97.6 F 05/19/17 07:06 Pulse Rate 82 05/19/17 12:00 Respiratory Rate 18 05/19/17 12:00 Blood Pressure 151/77 05/19/17 12:00 O2 Sat by Pulse Oximetry (%) 99 05/19/17 10:00 Constitutional: Yes: Well Nourished, No Distress, Calm Cardiovascular: Yes: Regular Rate and Rhythm Respiratory: Yes: Regular Gastrointestinal: Yes: Normal Bowel Sounds Genitourinary: Yes: [place] Present Musculoskeletal: Yes: WNL Extremities: Yes: WNL Edema: No Peripheral Pulses WNL: Yes Neurological: Yes: Alert, Lethargy Psychiatric: Yes: Alert Labs: CBC, BMP 05/19/17 11:30 05/19/17 11:30 INR, PTT INR 1.36 (0.82-1.09) H D 05/19/17 11:30 Problem List - Problems (1) Acute renal failure Assessment/Plan: -dialysis #2 this am -nephrology on case -repeat labs, potassium normalized, Cr still elevated but gradually improving Code(s): N17.9 - ACUTE KIDNEY FAILURE, UNSPECIFIED (2) Atrial fibrillation with RVR Assessment/Plan: -chronic -restart AC, cleared by Nephrology -Heparin SQ and warfarin PO, until therapeutic Code(s): I48.91 - UNSPECIFIED ATRIAL FIBRILLATION (3) Dehydration, moderate Code(s): E86.0 - DEHYDRATION (4) Generalized weakness Code(s): R53.1 - WEAKNESS (5) Hyperkalemia Assessment/Plan: normalized Code(s): E87.5 - HYPERKALEMIA (6) HTN (hypertension) Assessment/Plan: IV metoprolol BID IV hydralazine PRN Code(s): I10 - ESSENTIAL (PRIMARY) HYPERTENSION Assessment/Plan dialysis done today labs in am nephrology consult restart AC-heparin sq and warfarin po until therapeutic for afib IV metoprolol IV hydralazine PRN for HTN GI prophylaxis
[2017-05-19] MEDS ORDERED: WARFARIN NA 5 MG TABLET (UD) PO SCH (18:00)
[2017-05-19] MEDS: HEPARIN NA (PORCINE) 5,000 UNITS/ML 1ML VIAL SQ SCH (22:03)
[2017-05-19] MEDS: CHLORHEXIDINE GLUCONATE 4% CLEANSER FOR DECOLONIZATION TP SCH (22:03)
[2017-05-20 06:47] LABS: MCH 32.3 pg (25.7-33.7); MCHC 35.3 g/dl (32.0-35.9); MEAN CELL VOLUME 91.4 fl (80-96); MEAN PLT VOLUME 8.2 fl (7.5-11.1); PLATELET COUNT 199 K/MM3 (134-434); WHITE BLOOD COUNT 10.8 K/mm3 (4.0-10.0)
[2017-05-20 06:56] LABS: INR 1.21 (0.82-1.09); PROTHROMBIN TIME (PATIENT) 13.4 SEC (9.98-11.88)
[2017-05-20 07:00] LABS: ANION GAP 9 (8-16); CO2 28 mmol/L (21-32); GLUCOSE,RANDOM 74 mg/dL (74-106); MAGNESIUM 2.2 mg/dL (1.8-2.4); PHOSPHOROUS 7.1 mg/dL (2.5-4.9)
--- NOTE | 2017-05-20 08:37 | PN ---
Progress Note, Physician History of Present Illness: admitted with ARF pt confused but improving MS - Current Medication List Current Medications: Active Medications Chlorhexidine Gluconate (Hibiclens For Decolonization -) 1 applic TP HS [facility] Last Admin: 05/19/17 22:03 Dose: 1 applic Diltiazem HCl (Cardizem Cd -) 240 mg PO DAILY [facility] Heparin Sodium (Porcine) (Heparin -) 5,000 unit SQ BID [facility] Last Admin: 05/19/17 22:03 Dose: 5,000 unit Hydralazine HCl (Apresoline -) 25 mg PO TID [facility] Pantoprazole Sodium (Protonix 40mg Ivpb (Pre-Docked)) 100 mls @ 200 mls/hr IVPB DAILY [facility] Last Admin: 05/19/17 10:58 Dose: 200 mls/hr Mupirocin (Bactroban Ointment (For Decolonization) -) 1 applic NS BID [facility] Stop: 05/23/17 09:59 Last Admin: 05/19/17 22:03 Dose: 1 applic Warfarin Sodium (Coumadin -) 5 mg PO DAILY@1800 [facility] Last Admin: 05/19/17 17:52 Dose: 5 mg - Objective Vital Signs: Vital Signs Temperature 98.2 F 05/20/17 06:00 Pulse Rate 90 05/20/17 08:00 Respiratory Rate 20 05/20/17 08:00 Blood Pressure 169/96 05/20/17 08:00 O2 Sat by Pulse Oximetry (%) 96 05/19/17 22:00 Cardiovascular: Yes: S1, S2 Respiratory: Yes: Regular, CTA Bilaterally Gastrointestinal: Yes: Normal Bowel Sounds, Soft. No: Tenderness Edema: No Wound/Incision: Yes: Other (pu over the plantar aspect of great toes) Labs: CBC, BMP 05/20/17 06:00 05/20/17 06:00 INR, PTT INR 1.21 (0.82-1.09) H 05/20/17 06:00 Problem List - Problems (1) Acute renal failure Assessment/Plan: DIALYSIS PER [facility]HENG FOLLOW LABS Code(s): N17.9 - ACUTE KIDNEY FAILURE, UNSPECIFIED (2) Atrial fibrillation with RVR Assessment/Plan: COUMADIN--FOLLOW INR SQ HEPARIN Code(s): I48.91 - UNSPECIFIED ATRIAL FIBRILLATION (3) HTN (hypertension) Assessment/Plan: CARDIZEM 240 HYDRALAZINE 25 TID MONITOR AND ADJUST Code(s): I10 - ESSENTIAL (PRIMARY) HYPERTENSION (4) Confusion Assessment/Plan: MAYBE DUE TO RENAL CT NEGATIVE MRI OF HEAD--R/O CVA Code(s): R41.0 - DISORIENTATION, UNSPECIFIED
[2017-05-20 08:42] LABS: CREATININE 10.3 mg/dL (0.7-1.3)
--- NOTE | 2017-05-20 08:47 | PN ---
Physical Exam: SUBJECTIVE: Patient seen and examined at bed side this morning. Says he feels good. Denies chest pain, sob, cough, palpitation, abdominal pain, nausea or vomiting. OBJECTIVE: Vital Signs Period Temp Pulse Resp BP Sys/Ching Pulse Ox Last 24 Hr 97.4 F-98.6 F 78-107 14-22 145-193/68-136 96-99 GENERAL: The patient is awake, alert, and oriented x 2, not oriented to year, in no acute distress. HEAD: Normal with no signs of trauma. EYES: EOM intact, no pallor or icterus. ENT: Ears normal, moist mucous membranes. NECK: Trachea midline, full range of motion, supple. LUNGS: B/L Breath sounds equal, clear to auscultation bilaterally, no wheezes, no crackles, no accessory muscle use. HEART: Irregularly irregular rate and rhythm, S1, S2 with soft syst murmur. ABDOMEN: Soft, nontender, nondistended, normoactive bowel sounds, no guarding, no rebound, no hepatosplenomegaly, no masses. EXTREMITIES: 2+ pulses, warm, well-perfused, no edema. NEUROLOGICAL: No facial droop, EOM intact, rest of the neuro exam unable to perform because he was uncooperative, speech is slurred.gait not observed. PSYCH: Normal mood, normal affect. SKIN: Warm, dry, normal turgor, no rashes or lesions noted Laboratory Results - last 24 hr 05/19/17 05/19/17 05/19/17 06:00 11:30 11:30 WBC 14.3 H 13.0 H RBC 4.33 4.25 Hgb 13.6 13.2 Hct 39.5 38.8 MCV 91.4 91.4 MCH 31.4 30.9 MCHC 34.4 33.9 RDW 12.6 12.9 Plt Count 229 212 MPV 7.9 7.6 Neutrophils % 78.9 83.0 H Lymphocytes % 9.7 D 6.6 L D Monocytes % 9.2 9.0 Eosinophils % 1.7 D 1.0 Basophils % 0.5 0.4 INR 1.36 H D Sodium Potassium Chloride Carbon Dioxide Anion Gap BUN Creatinine Creat Clearance w eGFR POC Glucometer Random Glucose Calcium Phosphorus Magnesium Total Bilirubin AST ALT Alkaline Phosphatase Total Protein Albumin 05/19/17 05/20/17 05/20/17 11:30 06:00 06:00 WBC 10.8 H RBC 4.00 Hgb 12.9 Hct 36.6 MCV 91.4 MCH 32.3 MCHC 35.3 RDW 13.0 Plt Count 199 MPV 8.2 Neutrophils % Lymphocytes % Monocytes % Eosinophils % Basophils % INR 1.21 H Sodium 137 Potassium 4.9 D Chloride 101 Carbon Dioxide 26 D Anion Gap 10 BUN 54 H D Creatinine 8.2 H* D Creat Clearance w eGFR 6.44 POC Glucometer Random Glucose 112 H D Calcium 7.8 L Phosphorus Magnesium Total Bilirubin 0.5 AST 13 L ALT 18 Alkaline Phosphatase 64 Total Protein 5.4 L Albumin 2.8 L 05/20/17 05/20/17 06:00 06:41 WBC RBC Hgb Hct MCV MCH MCHC RDW Plt Count MPV Neutrophils % Lymphocytes % Monocytes % Eosinophils % Basophils % INR Sodium 138 Potassium 5.4 H Chloride 101 Carbon Dioxide 28 Anion Gap 9 BUN 64 H Creatinine 10.3 H* D Creat Clearance w eGFR POC Glucometer [id number] Random Glucose 74 D Calcium 8.0 L Phosphorus 7.1 H Magnesium 2.2 Total Bilirubin AST ALT Alkaline Phosphatase Total Protein Albumin Active Medications Generic Name Dose Route Start Last Admin Trade Name Freq PRN Reason Stop Dose Admin Chlorhexidine Gluconate 1 applic 05/18/17 22:00 05/19/17 22:03 Hibiclens For Decolonization - TP 1 applic HS [facility] Administration Diltiazem HCl 240 mg 05/20/17 10:00 Cardizem Cd - PO DAILY [facility] Heparin Sodium (Porcine) 5,000 unit 05/19/17 22:00 05/19/17 22:03 Heparin - SQ 5,000 unit BID [facility] Administration Hydralazine HCl 25 mg 05/20/17 14:00 Apresoline - PO TID [facility] Pantoprazole Sodium 100 mls @ 200 mls/hr 05/19/17 10:00 05/19/17 10:58 Protonix 40mg Ivpb (Pre-Docked) IVPB 200 mls/hr DAILY [facility] Administration Mupirocin 1 applic 05/18/17 10:00 05/19/17 22:03 Bactroban Ointment (For Decolonization) - NS 05/23/17 09:59 1 applic BID [facility] Administration Nicotine 14 mg 08/07/17 10:00 Nicoderm Patch - TD DAILY [facility] Warfarin Sodium 5 mg 05/19/17 18:00 05/19/17 17:52 Coumadin - PO 5 mg DAILY@1800 [facility] Administration ASSESSMENT/PLAN: The patient is a 76 yo M poor historian with a past medical history significant for chronic AF on anticoagulation, emphysema with long history of cigarette smoking, diverticulitis, hyperlipidemia, type 2 DM and HTN admitted for evaluation of Altered mental status and Acute renal failure. Neurology: Altered Mental Status: Most likely secondary to uremia Head CT x 2 is negative Still confused but improving, family members at bed side who mentions that he is doing much better than yesterday. Renal: Acute Renal Failure likely ATN Baseline creatinine is 0.8 12/05/2015, on arrival creatinine was 11.Creatinine today is 10.3 Emergent Dialysis was done x twice. No dialysis to be done today. Trial of Lasix today IV 80mg Lasix this monring, urine output to be monitored, volume status to be reassessed and if needed can give IV Lasix 100mg stat in the evening and Metolazone. Monitor urine output-hematuria likely post dutton insertion, will monitor USG of renal was done-Mild right hydronephrosis and renal cyst 3.8cm D/w Dr. Carmona, to wait for 1-2days and if he requires dialysis, plan is to place a perm catheter. Nephrology consult appreciated Digoxin toxicity Dig level was 2.1 on arrival Emergent dialysis was done D/C Digoxin Cardiology Atrial fibrillation with RVR on Warfarin On arrival, was supratherapeutic INR-5, now INR-1.21 D/c Warfarin and Continue Heparin drip, monitor H/H Continue Cardizem CD 240 mg PO Daily Echo pending Dr. Nowak consult appreciated Hypertension-controlled Continue Hydralazine 25mg PO TID Pulmonary COPD not on home oxygen- Not in exacerbation Smoking cessation couseling, Nitcotine patch daily. Oxygen prn Endocrinology Pre-Diabetic; [id number] Diet and exercise counseling Prophylaxis For DVT: On Heparin drip For GI: Protonix 40mg PO Daily. Code Status: Full Code Home Medication: Patient gets meds by mail order. Call placed to Dr. Castro's office. Here are the updated med list: Coumadin 4mg Daily; Cardia 120mg; Gemfibrozil 600mg Daily, Digoxin 125mcg, Atorvastain 20mg Daily, Lovaza 1gm BID Metoprolol tartarate 100mg PO BID and Ranitidine 150mg Daily- Hasn't picked up since few months. Dispo: Admitted in ICU. Illness, Investigation and Plan of care explained to the patient's family. They verbalized understanding. Case seen and discussed with Dr. Zepeda. Visit type - Emergency Visit Emergency Visit: Yes ED Registration Date: 05/17/17 Care time: The patient presented to the Emergency Department on the above date and was hospitalized for further evaluation of their emergent condition. - New Patient This patient is new to me today: Yes Date on this admission: 05/20/17 - Critical Care Critical Care patient: Yes Total Critical Care Time (in minutes): 35 Critical Care Statement: The care of this patient involved high complexity decision making to prevent further life threatening deterioration of the patient 's condition and/or to evalute & treat vital organ system(s) failure or risk of failure.
[2017-05-20 09:15] LABS: THYROID STIMULATING HORMONE 2.47 uIU/ml (0.358-3.74)
[2017-05-20] MEDS ORDERED: FUROSEMIDE 40 MG/4 ML INJECTABLE VIAL IVPUSH ONE (10:04)
--- NOTE | 2017-05-20 10:17 | PN ---
Progress Note (short form) - Note Progress Note: Renal Follow up for SILAS Pt seen and examined in the ICU awake and alert and less combative still remains anuric with dutton in place s/p dialysis yesterday pt is hypertensive Vital Signs Temperature 98.7 F 05/20/17 09:24 Pulse Rate 96 H 05/20/17 09:24 Respiratory Rate 15 05/20/17 09:24 Blood Pressure 132/64 05/20/17 09:24 O2 Sat by Pulse Oximetry (%) 99 05/20/17 09:25 Intake & Output 05/17/17 05/18/17 05/19/17 05/20/17 23:59 23:59 23:59 23:59 Intake Total 2200 210 0 Output Total 115 80 0 Balance 2085 130 0 Weight 287 lb 262 lb 4.8 oz 259 lb 258 lb 6.108 oz Gen: awake and alert, hard of hearing CVS: RRR Lungs: CTA, anterior exam Abd: soft NT/ND Ext: No edema, clubbing or cyanosis : no bladder distension, dutton catheter in place CBC, BMP 05/20/17 06:00 05/20/17 06:00 Current Medications Chlorhexidine Gluconate (Hibiclens For Decolonization -) 1 applic TP HS [facility] Last Admin: 05/19/17 22:03 Dose: 1 applic Diltiazem HCl (Cardizem Cd -) 240 mg PO DAILY [facility] Furosemide (Lasix Injection -) 80 mg IVPUSH ONCE ONE Stop: 05/20/17 10:05 Heparin Sodium (Porcine) (Heparin -) 5,000 unit SQ BID [facility] Last Admin: 05/19/17 22:03 Dose: 5,000 unit Hydralazine HCl (Apresoline -) 25 mg PO TID [facility] Pantoprazole Sodium (Protonix 40mg Ivpb (Pre-Docked)) 100 mls @ 200 mls/hr IVPB DAILY [facility] Last Admin: 05/19/17 10:58 Dose: 200 mls/hr Mupirocin (Bactroban Ointment (For Decolonization) -) 1 applic NS BID [facility] Stop: 05/23/17 09:59 Last Admin: 05/19/17 22:03 Dose: 1 applic Nicotine (Nicoderm Patch -) 14 mg TD DAILY [facility] Warfarin Sodium (Coumadin -) 5 mg PO DAILY@1800 [facility] Last Admin: 05/19/17 17:52 Dose: 5 mg A/P 76 year old gentleman with PMhx of Afib on Coumadin, COPD, Hyperlipidemia, DM Type 2, Hypertension who presented with AMS and found to have BUN/Cr of 109/11 and K of 7.8. #Acute Renal failure with hyperkalemia Etilogy of renal failure appears to be ATN Urine studies showed no signs of nephrotic range proteinuira or active sediment however given anuric renal failure and dependence of dialysis at this time will check serologic work up including JEANNA, ANCA, HIV, RPR, C3/C4, SPEP to r/o causes of RPGN no acute indication for dialysis today, will plan next treatment tomorrow will attempt trial of Lasix diuresis today dose all meds for Cr Cl less then 10 renal US showed mild hydronephrosis, likely does not explain the anuric renal failure but should have urologic consult Donta Carmona Problem List - Problems (1) Acute renal failure Code(s): N17.9 - ACUTE KIDNEY FAILURE, UNSPECIFIED (2) Atrial fibrillation with RVR Code(s): I48.91 - UNSPECIFIED ATRIAL FIBRILLATION (3) HTN (hypertension) Code(s): I10 - ESSENTIAL (PRIMARY) HYPERTENSION (4) Hyperkalemia Code(s): E87.5 - HYPERKALEMIA (5) Uremia Code(s): N19 - UNSPECIFIED KIDNEY FAILURE (6) Metabolic acidosis Code(s): E87.2 - ACIDOSIS (7) Hyperphosphatemia Code(s): E83.39 - OTHER DISORDERS OF PHOSPHORUS METABOLISM (8) Hyponatremia Code(s): E87.1 - HYPO-OSMOLALITY AND HYPONATREMIA
[2017-05-20] MEDS ORDERED: PT OWN MED DRAWER 7, Y5N ONE (10:37)
[2017-05-20] MEDS: NICOTINE 14 MG/24 HOURS TOPICAL PATCH TD SCH (10:40)
[2017-05-20] MEDS: MUPIROCIN 2% TOPICAL OINTMENT FOR DECOLONIZATION NS SCH ×2 (10:40→21:29)
[2017-05-20] MEDS: PANTOPRAZOLE SODIUM 100 ML IVPB SCH (10:41)
[2017-05-20] MEDS: HEPARIN NA (PORCINE) 5,000 UNITS/ML 1ML VIAL SQ SCH (10:41)
--- NOTE | 2017-05-20 10:52 | PN ---
Progress Note, Physician Chief Complaint: Patient is a long time office patient in our practice. Patient was seen in the hospital in November of 2015. Currently he is admitted to ICU after being found with altered mental status, hyperkalemia, elevated INR, Dig level and acute renal failure requiring emergent hemodialysis Currently he recognizes me, but still appears dioriented Denies chest pain or shortness of breath Patient has permanent atrial fibrillation with variable ventricular response History of Present Illness: As outlined. Renal input noted Initial Dig level was 2.1. INR was 5, now 1.2, creatinine now 10.3 Awake Patient has history of COPD/emphysema, long smoking history, diverticulitis, hypercholesterolemia, type 2 diabetes mellitus and hypertension - Current Medication List Current Medications: Active Medications Chlorhexidine Gluconate (Hibiclens For Decolonization -) 1 applic TP HS [facility] Last Admin: 05/19/17 22:03 Dose: 1 applic Diltiazem HCl (Cardizem Cd -) 240 mg PO DAILY [facility] Last Admin: 05/20/17 10:40 Dose: 240 mg Heparin Sodium (Porcine) (Heparin -) 5,000 unit SQ BID [facility] Last Admin: 05/20/17 10:41 Dose: 5,000 unit Hydralazine HCl (Apresoline -) 25 mg PO TID [facility] Pantoprazole Sodium (Protonix 40mg Ivpb (Pre-Docked)) 100 mls @ 200 mls/hr IVPB DAILY [facility] Last Admin: 05/20/17 10:41 Dose: 200 mls/hr Mupirocin (Bactroban Ointment (For Decolonization) -) 1 applic NS BID [facility] Stop: 05/23/17 09:59 Last Admin: 05/20/17 10:40 Dose: 1 applic Nicotine (Nicoderm Patch -) 14 mg TD DAILY [facility] Last Admin: 05/20/17 10:40 Dose: 14 mg Warfarin Sodium (Coumadin -) 5 mg PO DAILY@1800 [facility] Last Admin: 05/19/17 17:52 Dose: 5 mg - Objective Vital Signs: Vital Signs Temperature 98.7 F 05/20/17 09:24 Pulse Rate 97 H 05/20/17 10:43 Respiratory Rate 15 05/20/17 09:24 Blood Pressure 132/64 05/20/17 09:24 O2 Sat by Pulse Oximetry (%) 98 05/20/17 10:43 Cardiovascular: Yes: Pulse Irregular, S1, S2 Respiratory: Yes: Diminished Gastrointestinal: Yes: Normal Bowel Sounds, Soft, Abdomen, Obese. No: Tenderness Edema: No Labs: CBC, BMP 05/20/17 06:00 05/20/17 06:00 INR, PTT INR 1.21 (0.82-1.09) H 05/20/17 06:00 Laboratory Results - last 24 hr 05/19/17 05/19/17 05/19/17 06:00 11:30 11:30 WBC 14.3 H 13.0 H RBC 4.33 4.25 Hgb 13.6 13.2 Hct 39.5 38.8 MCV 91.4 91.4 MCH 31.4 30.9 MCHC 34.4 33.9 RDW 12.6 12.9 Plt Count 229 212 MPV 7.9 7.6 Neutrophils % 78.9 83.0 H Lymphocytes % 9.7 D 6.6 L D Monocytes % 9.2 9.0 Eosinophils % 1.7 D 1.0 Basophils % 0.5 0.4 INR 1.36 H D Sodium Potassium Chloride Carbon Dioxide Anion Gap BUN Creatinine Creat Clearance w eGFR POC Glucometer Random Glucose Hemoglobin A1c % Calcium Phosphorus Magnesium Total Bilirubin AST ALT Alkaline Phosphatase Total Protein Albumin [facility] 05/19/17 05/20/17 05/20/17 11:30 06:00 06:00 WBC 10.8 H RBC 4.00 Hgb 12.9 Hct 36.6 MCV 91.4 MCH 32.3 MCHC 35.3 RDW 13.0 Plt Count 199 MPV 8.2 Neutrophils % Lymphocytes % Monocytes % Eosinophils % Basophils % INR 1.21 H Sodium 137 Potassium 4.9 D Chloride 101 Carbon Dioxide 26 D Anion Gap 10 BUN 54 H D Creatinine 8.2 H* D Creat Clearance w eGFR 6.44 POC Glucometer Random Glucose 112 H D Hemoglobin A1c % Calcium 7.8 L Phosphorus Magnesium Total Bilirubin 0.5 AST 13 L ALT 18 Alkaline Phosphatase 64 Total Protein 5.4 L Albumin 2.8 L [facility] 05/20/17 05/20/17 05/20/17 06:00 06:00 06:00 WBC RBC Hgb Hct MCV MCH MCHC RDW Plt Count MPV Neutrophils % Lymphocytes % Monocytes % Eosinophils % Basophils % INR Sodium 138 Potassium 5.4 H Chloride 101 Carbon Dioxide 28 Anion Gap 9 BUN 64 H Creatinine 10.3 H* D Creat Clearance w eGFR POC Glucometer Random Glucose 74 D Hemoglobin A1c % 5.8 D Calcium 8.0 L Phosphorus 7.1 H Magnesium 2.2 Total Bilirubin AST ALT Alkaline Phosphatase Total Protein Albumin TSH 2.47 D Cancelled - ....Imaging Chest X-ray: Report Reviewed (Increased lung marking, prominent mediastinum) Cat Scan: Report Reviewed (Head CT unremarkable) Problem List - Problems (1) Acute renal failure Code(s): N17.9 - ACUTE KIDNEY FAILURE, UNSPECIFIED (2) Atrial fibrillation with RVR Code(s): I48.91 - UNSPECIFIED ATRIAL FIBRILLATION (3) Confusion Code(s): R41.0 - DISORIENTATION, UNSPECIFIED (4) HTN (hypertension) Code(s): I10 - ESSENTIAL (PRIMARY) HYPERTENSION (5) Hyperkalemia Code(s): E87.5 - HYPERKALEMIA (6) Uremia Code(s): N19 - UNSPECIFIED KIDNEY FAILURE (7) Diabetes Code(s): E11.9 - TYPE 2 DIABETES MELLITUS WITHOUT COMPLICATIONS Qualifiers: Diabetes mellitus type: type 2 Diabetes mellitus complication status: without complication Qualified Code(s): E11.9 - Type 2 diabetes mellitus without complications (8) Supratherapeutic INR Code(s): R79.1 - ABNORMAL COAGULATION PROFILE Assessment/Plan 1. Acute renal failure now on HD as per renal 2. Digoxin toxicity 3. Hyperkalemia and supratherapeutic INR now reversed 4. Altered mental status/encephalopathy - probably due to uremia 5. Permanent atrial fibrillation on Coumadin 6. History of hypertension 7. COPD/emphysema with history of exacerbation 8. Type 2 diabetes mellitus PLAN: 1. HD as per renal service and monitor electrolyes and renal function 2. Continue Cardizem CD and titrate 3. Continue Hydralazine as tolerated 4. Currently on Heparin SQ, but would prefer IV Heparin drip while INR is subtherapeutic. Continue Coumadin with INR between 2-3 5. Currently off Digoxin and would not continue with it 6. Monitor mental status. Consider further work up to rule out CVA. Consider MRI brain 7. Transthoracic echocardiography to reassess LV/RV and valvular function Guarded Further plans are to follow Han Nowak MD
[2017-05-20] MEDS ORDERED: HEPARIN NA (PORCINE) 5,000 UNITS/ML 1ML VIAL IVPUSH PRN ×2 (11:35)
[2017-05-20] MEDS: hydrALAZINE HCL 25 MG TABLET (FP) PO SCH ×2 (13:42→21:28)
[2017-05-20 13:49] LABS: URINE MARIJUANA THC NEGATIVE ng/ml (CUTOFF=50)
[2017-05-20] MEDS: HEPARIN - 25,000 UNIT in SODIUM CHLORIDE 495 ML IV SCH (15:59)
--- NOTE | 2017-05-20 17:25 | PN ---
Teaching Attending Note Name of Resident: Leann Calderon ATTENDING PHYSICIAN STATEMENT I saw and evaluated the patient. I reviewed the resident's note and discussed the case with the resident. I agree with the resident's findings and plan as documented. SUBJECTIVE: Patient seen and examined in the ICU. Awake and interactive, but mildly confused. Trying to get OOB. Denies CP or SOB. Very poor urine outpur. Intake & Output 05/17/17 05/18/17 05/19/17 05/20/17 23:59 23:59 23:59 23:59 Intake Total 2200 210 560 Output Total 115 80 230 Balance 2085 130 330 Weight 287 lb 262 lb 4.8 oz 259 lb 258 lb 6.108 oz Last Vital Signs Temp Pulse Resp BP Pulse Ox 98.8 F 80 20 123/60 96 05/20/17 14:00 05/20/17 16:00 05/20/17 16:00 05/20/17 16:00 05/20/17 15:19 Active Medications Chlorhexidine Gluconate (Hibiclens For Decolonization -) 1 applic TP HS [facility] Last Admin: 05/19/17 22:03 Dose: 1 applic Diltiazem HCl (Cardizem Cd -) 240 mg PO DAILY [facility] Last Admin: 05/20/17 10:40 Dose: 240 mg Heparin Sodium (Porcine) (Heparin -) 1,000 unit IVPUSH PRN PRN PRN Reason: Heparin Heparin Sodium (Porcine) (Heparin -) 5,000 unit IVPUSH PRN PRN PRN Reason: Heparin Hydralazine HCl (Apresoline -) 25 mg PO TID [facility] Last Admin: 05/20/17 13:42 Dose: 25 mg Heparin Sodium (Porcine) 25, (000 unit/ Sodium Chloride) 500 mls @ 20 mls/hr IV TITR [facility]; 1,000 UNIT/HR PRN Reason: Protocol Last Admin: 05/20/17 15:59 Dose: 20 mls/hr Mupirocin (Bactroban Ointment (For Decolonization) -) 1 applic NS BID [facility] Stop: 05/23/17 09:59 Last Admin: 05/20/17 10:40 Dose: 1 applic Nicotine (Nicoderm Patch -) 14 mg TD DAILY [facility] Last Admin: 05/20/17 10:40 Dose: 14 mg Pantoprazole Sodium (Protonix -) 40 mg PO DAILY [facility] GENERAL: The patient is awake, alert, mildly confused HEAD: Normal with no signs of trauma. EYES: EOM intact, no pallor or icterus. ENT: Ears normal, moist mucous membranes. NECK: Trachea midline, full range of motion, supple. LUNGS: Few scattered rhonchi, no wheeze HEART: Irregularly irregular rate and rhythm, (+) ESM ABDOMEN: Soft, nontender, nondistended, normoactive bowel sounds, no guarding, no rebound, no hepatosplenomegaly, no masses. EXTREMITIES: 2+ pulses, warm, well-perfused, no edema. NEUROLOGICAL: Non-focal SKIN: Warm, dry, normal turgor, no rashes or lesions noted Laboratory Results - last 24 hr 05/20/17 05/20/17 05/20/17 06:00 06:00 06:00 WBC 10.8 H RBC 4.00 Hgb 12.9 Hct 36.6 MCV 91.4 MCH 32.3 MCHC 35.3 RDW 13.0 Plt Count 199 MPV 8.2 INR 1.21 H PTT (Actin FS) Sodium 138 Potassium 5.4 H Chloride 101 Carbon Dioxide 28 Anion Gap 9 BUN 64 H Creatinine 10.3 H* D POC Glucometer Random Glucose 74 D Hemoglobin A1c % Calcium 8.0 L Phosphorus 7.1 H Magnesium 2.2 TSH 2.47 D Opiates Screen Methadone Screen Barbiturate Screen Phencyclidine Screen Ur Amphetamines Screen MDMA (Ecstasy) Screen Benzodiazepines Screen Cocaine Screen U Marijuana (THC) Screen RPR Titer 05/20/17 05/20/17 05/20/17 06:00 06:00 06:41 WBC RBC Hgb Hct MCV MCH MCHC RDW Plt Count MPV INR PTT (Actin FS) Sodium Potassium Chloride Carbon Dioxide Anion Gap BUN Creatinine POC Glucometer [id number] Random Glucose Hemoglobin A1c % 5.8 D Calcium Phosphorus Magnesium TSH Cancelled Opiates Screen Methadone Screen Barbiturate Screen Phencyclidine Screen Ur Amphetamines Screen MDMA (Ecstasy) Screen Benzodiazepines Screen Cocaine Screen U Marijuana (THC) Screen RPR Titer 05/20/17 05/20/17 05/20/17 10:40 11:30 13:50 WBC RBC Hgb Hct MCV MCH MCHC RDW Plt Count MPV INR PTT (Actin FS) 31.3 Sodium Potassium Chloride Carbon Dioxide Anion Gap BUN Creatinine POC Glucometer Random Glucose Hemoglobin A1c % Calcium Phosphorus Magnesium TSH Opiates Screen Negative Methadone Screen Negative Barbiturate Screen Negative Phencyclidine Screen Negative Ur Amphetamines Screen Negative MDMA (Ecstasy) Screen Negative Benzodiazepines Screen Negative Cocaine Screen Negative U Marijuana (THC) Screen Negative RPR Titer Nonreactive Problem List - Problems (1) Acute renal failure Assessment/Plan: Code(s): N17.9 - ACUTE KIDNEY FAILURE, UNSPECIFIED (2) Atrial fibrillation with RVR Assessment/Plan: Code(s): I48.91 - UNSPECIFIED ATRIAL FIBRILLATION (3) HTN (hypertension) Assessment/Plan: Code(s): I10 - ESSENTIAL (PRIMARY) HYPERTENSION (4) Confusion Assessment/Plan: Code(s): R41.0 - DISORIENTATION, UNSPECIFIED PLAN: Lasix Trial of Zaroxylin O2 as needed Aspiration precautions Strict I&O IV Heparin BD TX Dr Zepeda Critical Care Time Total Critical Care Time: 35 Critical Care Statement: The care of this patient involved high complexity decision making to prevent further life threatening deterioration of the patient 's condition and/or to evalute & treat vital organ system(s) failure or risk of failure.
--- NOTE | 2017-05-20 19:43 | PN ---
Progress Note (short form) - Note Progress Note: Vascular Surgery Will be on standby for permacath placement. Dr. Lu is covering me sat onwards, and will be available for PC placement as well. Eric Oden DO
[2017-05-20] MEDS ORDERED: FUROSEMIDE 100 MG/10 ML INJECTABLE VIAL IVPB ONE (21:06)
[2017-05-20] MEDS: CHLORHEXIDINE GLUCONATE 4% CLEANSER FOR DECOLONIZATION TP SCH (21:29)
[2017-05-20] MEDS ORDERED: LORazepam 2 MG/ML SDV VIAL ONE (22:04)
[2017-05-21] MEDS: hydrALAZINE HCL 25 MG TABLET (FP) PO SCH ×3 (05:30→21:21)
[2017-05-21] MEDS ORDERED: HEPARIN NA (PORCINE) 5,000 UNITS/ML 1ML VIAL IVPUSH ONE (06:00)
[2017-05-21 06:33] LABS: MCH 31.9 pg (25.7-33.7); MCHC 34.8 g/dl (32.0-35.9); MEAN CELL VOLUME 91.5 fl (80-96); MEAN PLT VOLUME 8.3 fl (7.5-11.1); PLATELET COUNT 187 K/MM3 (134-434); WHITE BLOOD COUNT 10.7 K/mm3 (4.0-10.0)
--- NOTE | 2017-05-21 06:56 | PN ---
Progress Note (short form) - Note Progress Note: Chief Complaint: Events noted notes reviewed. Remains confused and disoriented, atrial fibrillation persists rate controlled, denies any chest pain or dyspnea History of Present Illness: Seen and examined in the ICU. Events noted notes reviewed, remains confused and disoriented, atrial fibrillation persists rate controlled, denies any chest pain or dyspnea Currently on Heparin drip Echocardiography revealed normal LV size and systolic function with no significant valvular pathology - Current Medication List Current Medications Chlorhexidine Gluconate (Hibiclens For Decolonization -) 1 applic TP HS [facility] Last Admin: 05/20/17 21:29 Dose: 1 applic Diltiazem HCl (Cardizem Cd -) 240 mg PO DAILY [facility] Last Admin: 05/20/17 10:40 Dose: 240 mg Heparin Sodium (Porcine) (Heparin -) 1,000 unit IVPUSH PRN PRN PRN Reason: Heparin Heparin Sodium (Porcine) (Heparin -) 5,000 unit IVPUSH PRN PRN PRN Reason: Heparin Hydralazine HCl (Apresoline -) 25 mg PO TID [facility] Last Admin: 05/21/17 05:30 Dose: 25 mg Heparin Sodium (Porcine) 25, (000 unit/ Sodium Chloride) 500 mls @ 20 mls/hr IV TITR [facility]; 1,000 UNIT/HR PRN Reason: Protocol Last Admin: 05/20/17 15:59 Dose: 20 mls/hr Mupirocin (Bactroban Ointment (For Decolonization) -) 1 applic NS BID [facility] Stop: 05/23/17 09:59 Last Admin: 05/20/17 21:29 Dose: 1 applic Nicotine (Nicoderm Patch -) 14 mg TD DAILY [facility] Last Admin: 05/20/17 10:40 Dose: 14 mg Pantoprazole Sodium (Protonix -) 40 mg PO DAILY [facility] Review of Systems Cardiovascular: As noted above Respiratory: denies: Cough or Sputum Production Gastrointestinal: denies: Nausea, Vomiting, Diarrhea, Constipation or Abdominal Discomfort Musculoskeletal: No Symptoms Reported Endocrine: No Symptoms Reported - Objective Vital Signs: Last Vital Signs Temp Pulse Resp BP Pulse Ox 98.6 F 71 18 151/79 96 05/21/17 06:00 05/21/17 06:00 05/21/17 06:00 05/21/17 06:00 05/20/17 22:00 Intake & Output 05/18/17 05/19/17 05/20/17 05/21/17 23:59 23:59 23:59 23:59 Intake Total 2200 210 1220 290 Output Total 115 80 230 800 Balance 2085 130 990 -510 Weight 262 lb 4.8 oz 259 lb 258 lb 6.108 oz 254 lb 8 oz Neck: Supple Negative JVD No Bruit Cardiovascular: S1 S2 Irregularly Irregular No Murmurs, Clicks or Gallops Respiratory: Diminished Breath sounds at the Bases Gastrointestinal: Soft Benign Normal Bowel Sounds Ext: No Edema Labs: Labs from this AM pending INR, PTT INR 1.21 (0.82-1.09) H 05/20/17 06:00 Assessment/Plan ASSESSMENT: 1. Acute renal failure on HD as per renal service 2. CAD angina pectoris, stable 3. Diastolic LV dysfunction with class 0-I NYHA classification LV failure, euvolemic 4. Permanent atrial fibrillation on chronic A/C with Coumadin, transient supra- therapeutic INR 5. Post Digoxin toxicity 6. Hyperkalemia, resolved 7. Altered mental status/toxic metabolic encephalopathy, persistent 8. Hypertension 9. DM 10. COPD/emphysema PLAN: 1. Continue HD as per renal service 2. Continue Cardizem CD 3. If additional rate control is desired will add B-Blockers 4. Continue Hydralazine and may titrate dosage 5. Continue Heparin and resume Coumadin once no further intervention is planned 6. Defer resumption of Digoxin at this point Caro Ordoñez MD
[2017-05-21 08:03] LABS: ALBUMIN 2.6 g/dl (3.4-5.0); ANION GAP 11 (8-16); CHOLESTEROL 98 mg/dL (50-200); CO2 25 mmol/L (21-32); GLUCOSE,RANDOM 94 mg/dL (74-106); MAGNESIUM 2.3 mg/dL (1.8-2.4); PHOSPHOROUS 6.4 mg/dL (2.5-4.9); SGOT/AST 12 U/L (15-37); SGPT/ALT 18 U/L (12-78); TOT PROT 5.1 g/dl (6.4-8.2)
[2017-05-21 08:09] LABS: ALK PHOS 60 U/L (45-117); BILIRUBIN,TOTAL 0.4 mg/dL (0.2-1.0)
--- NOTE | 2017-05-21 08:39 | PN ---
Physical Exam: SUBJECTIVE: Patient seen and examined at bed side this morning. Worsening confusion as compared to yesterday. Overnight, he was agitated and was given Ativan. OBJECTIVE: Vital Signs Period Temp Pulse Resp BP Sys/Ching Pulse Ox Last 24 Hr 98.6 F-99.1 F 70-97 15-20 123-151/60-84 96-99 GENERAL: The patient is awake, alert, and disoriented x 3, in no acute distress , [place] HEAD: Normal with no signs of trauma. EYES: Crusted eyes +, EOM intact, no pallor or icterus. ENT: Ears normal, moist mucous membranes. NECK: Trachea midline, full range of motion, supple. LUNGS: B/L Breath sounds equal, clear to auscultation bilaterally, no wheezes, no crackles, no accessory muscle use. HEART: Irregularly irregular rate and rhythm, S1, S2 with soft systolic murmur. ABDOMEN: Soft, nontender, nondistended, normoactive bowel sounds, no guarding, no rebound, no hepatosplenomegaly, no masses. EXTREMITIES: 2+ pulses, warm, well-perfused, no edema. NEUROLOGICAL: No facial droop, EOM intact, rest of the neuro exam unable to perform because he was uncooperative, speech is slurred.gait not observed. PSYCH: Normal mood, normal affect. SKIN: Warm, dry, normal turgor, no rashes or lesions noted Laboratory Results - last 24 hr 05/20/17 05/20/17 05/20/17 06:00 06:00 06:00 WBC RBC Hgb Hct MCV MCH MCHC RDW Plt Count MPV PTT (Actin FS) Sodium 138 Potassium 5.4 H Chloride 101 Carbon Dioxide 28 Anion Gap 9 BUN 64 H Creatinine 10.3 H* D Random Glucose 74 D Hemoglobin A1c % 5.8 D Calcium 8.0 L Phosphorus 7.1 H Magnesium 2.2 TSH 2.47 D Cancelled Opiates Screen Methadone Screen Barbiturate Screen Phencyclidine Screen Ur Amphetamines Screen MDMA (Ecstasy) Screen Benzodiazepines Screen Cocaine Screen U Marijuana (THC) Screen RPR Titer 05/20/17 05/20/17 05/20/17 10:40 11:30 13:50 WBC RBC Hgb Hct MCV MCH MCHC RDW Plt Count MPV PTT (Actin FS) 31.3 Sodium Potassium Chloride Carbon Dioxide Anion Gap BUN Creatinine Random Glucose Hemoglobin A1c % Calcium Phosphorus Magnesium TSH Opiates Screen Negative Methadone Screen Negative Barbiturate Screen Negative Phencyclidine Screen Negative Ur Amphetamines Screen Negative MDMA (Ecstasy) Screen Negative Benzodiazepines Screen Negative Cocaine Screen Negative U Marijuana (THC) Screen Negative RPR Titer Nonreactive 05/20/17 05/21/17 05/21/17 21:15 05:15 05:15 WBC 10.7 H RBC 3.86 L Hgb 12.3 Hct 35.3 L MCV 91.5 MCH 31.9 MCHC 34.8 RDW 13.0 Plt Count 187 MPV 8.3 PTT (Actin FS) 54.0 H D 68.7 H Sodium Potassium Chloride Carbon Dioxide Anion Gap BUN Creatinine Random Glucose Hemoglobin A1c % Calcium Phosphorus Magnesium TSH Opiates Screen Methadone Screen Barbiturate Screen Phencyclidine Screen Ur Amphetamines Screen MDMA (Ecstasy) Screen Benzodiazepines Screen Cocaine Screen U Marijuana (THC) Screen RPR Titer Active Medications Generic Name Dose Route Start Last Admin Trade Name Freq PRN Reason Stop Dose Admin Artificial Tears 1 drop 05/21/17 08:22 Artificial Tears OU BID PRN DRY EYES Chlorhexidine Gluconate 1 applic 05/18/17 22:00 05/20/17 21:29 Hibiclens For Decolonization - TP 1 applic HS [facility] Administration Diltiazem HCl 240 mg 05/20/17 10:00 05/20/17 10:40 Cardizem Cd - PO 240 mg DAILY [facility] Administration Heparin Sodium (Porcine) 1,000 unit 05/20/17 11:35 Heparin - IVPUSH PRN PRN Heparin Heparin Sodium (Porcine) 5,000 unit 05/20/17 11:35 Heparin - IVPUSH PRN PRN Heparin Hydralazine HCl 25 mg 05/20/17 14:00 05/21/17 05:30 Apresoline - PO 25 mg TID [facility] Administration Heparin Sodium (Porcine) 25, 500 mls @ 20 mls/hr 05/20/17 11:45 05/20/17 15:59 000 unit/ Sodium Chloride IV 20 mls/hr TITR [facility] Administration Protocol 1,000 UNIT/HR Mupirocin 1 applic 05/18/17 10:00 05/20/17 21:29 Bactroban Ointment (For Decolonization) - NS 05/23/17 09:59 1 applic BID [facility] Administration Nicotine 14 mg 05/20/17 10:00 05/20/17 10:40 Nicoderm Patch - TD 14 mg DAILY [facility] Administration Pantoprazole Sodium 40 mg 05/21/17 10:00 Protonix - PO DAILY [facility] ASSESSMENT/PLAN: The patient is a 76 yo M poor historian with a past medical history significant for chronic AF on anticoagulation, emphysema with long history of cigarette smoking, diverticulitis, hyperlipidemia, type 2 DM and HTN admitted for evaluation of Altered mental status and Acute renal failure. Neurology: Altered Mental Status most likely secondary to uremic encephalopathy- worsening confusion today CT head negative Hopefully, it will improve after dialysis. Renal: Acute Renal Failure likely ATN Baseline creatinine is 0.8 12/05/2015, on arrival creatinine was 11.Creatinine today is 11.8 Dialysis was not done yesterday, dialysis as per Renal. Trial of Lasix IV 80mg Lasix given yesterday morning and 160 mg IV Lasix given in the evening. urine output 800mls post lasix. I's and O's, clean urine today. USG of renal was done-Mild right hydronephrosis and renal cyst 3.8cm D/w Dr. Carmona, to wait for 1-2days and if he requires dialysis, plan is to place a perma catheter if dialysis is needed. Dr. Oden consult appreciated Digoxin toxicity Dig level was 2.1 on arrival Emergent dialysis was done D/C Digoxin Cardiology Atrial fibrillation with RVR rate controlled On arrival, was supratherapeutic INR-5, now INR-1.21 D/c Warfarin and Continue Heparin drip, monitor H/H Continue Cardizem CD 240 mg PO Daily Echo: No regional wall abnormalities, normal left ventricular systolic function. Dr. Nowak consult appreciated Hypertension-controlled Continue Hydralazine 25mg PO TID Pulmonary COPD not on home oxygen- Not in exacerbation Smoking cessation couseling, Nitcotine patch daily. Oxygen prn Endocrinology Pre-Diabetic; [id number] Diet and exercise counseling Dry Eyes Artificial tears Prophylaxis For DVT: On Heparin drip For GI: Protonix 40mg PO Daily. Code Status: Full Code Home Medication: Patient gets meds by mail order. Call placed to Dr. Castro's office. Here are the updated med list: Coumadin 4mg Daily; Cardia 120mg; Gemfibrozil 600mg Daily, Digoxin 125mcg, Atorvastain 20mg Daily, Lovaza 1gm BID Metoprolol tartarate 100mg PO BID and Ranitidine 150mg Daily- Hasn't picked up since few months. Dispo: Admitted in ICU. Illness, Investigation and Plan of care explained to the patient's family yesterday. They verbalized understanding. Case seen and discussed with Dr. Zepeda. Visit type - Emergency Visit Emergency Visit: Yes ED Registration Date: 05/17/17 Care time: The patient presented to the Emergency Department on the above date and was hospitalized for further evaluation of their emergent condition. - New Patient This patient is new to me today: No - Critical Care Critical Care patient: Yes Total Critical Care Time (in minutes): 35 Critical Care Statement: The care of this patient involved high complexity decision making to prevent further life threatening deterioration of the patient 's condition and/or to evalute & treat vital organ system(s) failure or risk of failure.
[2017-05-21 08:45] LABS: CREATININE 11.8 mg/dL (0.7-1.3)
--- NOTE | 2017-05-21 09:10 | PN ---
Progress Note, Physician History of Present Illness: admitted with ARF pt confused but improving MS - Current Medication List Current Medications: Active Medications Alprazolam (Xanax -) 0.25 mg PO Q8H PRN PRN Reason: ANXIETY Artificial Tears (Artificial Tears) 1 drop OU BID PRN PRN Reason: DRY EYES Chlorhexidine Gluconate (Hibiclens For Decolonization -) 1 applic TP HS [facility] Last Admin: 05/20/17 21:29 Dose: 1 applic Diltiazem HCl (Cardizem Cd -) 240 mg PO DAILY [facility] Last Admin: 05/20/17 10:40 Dose: 240 mg Heparin Sodium (Porcine) (Heparin -) 1,000 unit IVPUSH PRN PRN PRN Reason: Heparin Heparin Sodium (Porcine) (Heparin -) 5,000 unit IVPUSH PRN PRN PRN Reason: Heparin Hydralazine HCl (Apresoline -) 25 mg PO TID [facility] Last Admin: 05/21/17 05:30 Dose: 25 mg Heparin Sodium (Porcine) 25, (000 unit/ Sodium Chloride) 500 mls @ 20 mls/hr IV TITR [facility]; 1,000 UNIT/HR PRN Reason: Protocol Last Admin: 05/20/17 15:59 Dose: 20 mls/hr Mupirocin (Bactroban Ointment (For Decolonization) -) 1 applic NS BID [facility] Stop: 05/23/17 09:59 Last Admin: 05/20/17 21:29 Dose: 1 applic Nicotine (Nicoderm Patch -) 14 mg TD DAILY [facility] Last Admin: 05/20/17 10:40 Dose: 14 mg Pantoprazole Sodium (Protonix -) 40 mg PO DAILY [facility] - Objective Vital Signs: Vital Signs Temperature 98.6 F 05/21/17 06:00 Pulse Rate 75 05/21/17 07:56 Respiratory Rate 19 05/21/17 07:56 Blood Pressure 139/67 05/21/17 07:56 O2 Sat by Pulse Oximetry (%) 96 05/20/17 22:00 Cardiovascular: Yes: S1, S2 Respiratory: Yes: Diminished, Rales Gastrointestinal: Yes: Normal Bowel Sounds, Soft Labs: CBC, BMP 05/21/17 05:15 05/21/17 05:15 INR, PTT INR 1.21 (0.82-1.09) H 05/20/17 06:00 Problem List - Problems (1) Acute renal failure Assessment/Plan: DIALYSIS PER RENAL CR 11 FOLLOW LABS Code(s): N17.9 - ACUTE KIDNEY FAILURE, UNSPECIFIED (2) Atrial fibrillation with RVR Assessment/Plan: COUMADIN--FOLLOW INR SQ HEPARIN MONITOR RATE ON MEDS Code(s): I48.91 - UNSPECIFIED ATRIAL FIBRILLATION (3) HTN (hypertension) Assessment/Plan: CARDIZEM 240 HYDRALAZINE 25 TID MONITOR AND ADJUST Code(s): I10 - ESSENTIAL (PRIMARY) HYPERTENSION (4) Confusion Assessment/Plan: MAYBE DUE TO RENAL CT NEGATIVE MRI OF HEAD--R/O CVA Code(s): R41.0 - DISORIENTATION, UNSPECIFIED
[2017-05-21] MEDS ORDERED: PT OWN MED DRAWER 7, Y5N ONE (09:35)
[2017-05-21] MEDS: PANTOPRAZOLE 40 MG TABLET (FP) PO SCH (09:42)
[2017-05-21] MEDS: NICOTINE 14 MG/24 HOURS TOPICAL PATCH TD SCH (09:43)
[2017-05-21] MEDS: ARTIFICIAL TEARS (POLYVINYL ALCOHOL 1.4%) OPTH DROPS OU PRN ×2 (09:47→21:21)
[2017-05-21] MEDS: MUPIROCIN 2% TOPICAL OINTMENT FOR DECOLONIZATION NS SCH ×2 (12:57→21:21)
[2017-05-21] MEDS: HEPARIN - 25,000 UNIT in SODIUM CHLORIDE 495 ML IV SCH (12:59)
--- NOTE | 2017-05-21 13:14 | PN ---
Teaching Attending Note Name of Resident: Leann Calderon ATTENDING PHYSICIAN STATEMENT I saw and evaluated the patient. I reviewed the resident's note and discussed the case with the resident. I agree with the resident's findings and plan as documented. SUBJECTIVE: Patient seen and examined in the ICU. Awake and interactive, but remains confused/agitated. Denies CP or SOB. Noted urine output from yesterday after diuretic challenge. Intake & Output 05/18/17 05/19/17 05/20/17 05/21/17 23:59 23:59 23:59 23:59 Intake Total 2200 210 1220 650 Output Total 115 80 230 800 Balance 2085 130 990 -150 Weight 262 lb 4.8 oz 259 lb 258 lb 6.108 oz 254 lb 8 oz Last Vital Signs Temp Pulse Resp BP Pulse Ox 97.8 F 84 21 150/73 97 05/21/17 10:55 05/21/17 13:00 05/21/17 13:00 05/21/17 13:00 05/21/17 10:00 Active Medications Alprazolam (Xanax -) 0.25 mg PO Q8H PRN PRN Reason: ANXIETY Artificial Tears (Artificial Tears) 1 drop OU BID PRN PRN Reason: DRY EYES Last Admin: 05/21/17 09:47 Dose: 1 drop Chlorhexidine Gluconate (Hibiclens For Decolonization -) 1 applic TP HS [facility] Last Admin: 05/20/17 21:29 Dose: 1 applic Diltiazem HCl (Cardizem Cd -) 240 mg PO DAILY [facility] Last Admin: 05/21/17 09:42 Dose: 240 mg Heparin Sodium (Porcine) (Heparin -) 1,000 unit IVPUSH PRN PRN PRN Reason: Heparin Heparin Sodium (Porcine) (Heparin -) 5,000 unit IVPUSH PRN PRN PRN Reason: Heparin Hydralazine HCl (Apresoline -) 25 mg PO TID [facility] Last Admin: 05/21/17 05:30 Dose: 25 mg Heparin Sodium (Porcine) 25, (000 unit/ Sodium Chloride) 500 mls @ 20 mls/hr IV TITR BURKE; 1,000 UNIT/HR PRN Reason: Protocol Last Admin: 05/21/17 12:59 Dose: 20 mls/hr Mupirocin (Bactroban Ointment (For Decolonization) -) 1 applic NS BID [facility] Stop: 05/23/17 09:59 Last Admin: 05/21/17 12:57 Dose: 1 applic Nicotine (Nicoderm Patch -) 14 mg TD DAILY [facility] Last Admin: 05/21/17 09:43 Dose: 14 mg Pantoprazole Sodium (Protonix -) 40 mg PO DAILY [facility] Last Admin: 05/21/17 09:42 Dose: 40 mg GENERAL: The patient is awake, alert, confused HEAD: Normal with no signs of trauma. EYES: EOM intact, no pallor or icterus. ENT: Ears normal, moist mucous membranes. NECK: Trachea midline, full range of motion, supple. LUNGS: Few scattered rhonchi, no wheeze HEART: Irregularly irregular rate and rhythm, (+) ESM ABDOMEN: Soft, nontender, nondistended, normoactive bowel sounds, no guarding, no rebound, no hepatosplenomegaly, no masses. EXTREMITIES: 2+ pulses, warm, well-perfused, no edema. NEUROLOGICAL: Non-focal SKIN: Warm, dry, normal turgor, no rashes or lesions noted Laboratory Results - last 24 hr 05/20/17 05/20/17 05/20/17 10:40 11:30 13:50 WBC RBC Hgb Hct MCV MCH MCHC RDW Plt Count MPV PTT (Actin FS) 31.3 Sodium Potassium Chloride Carbon Dioxide Anion Gap BUN Creatinine Creat Clearance w eGFR Random Glucose Calcium Phosphorus Magnesium Total Bilirubin AST ALT Alkaline Phosphatase Total Protein Albumin Triglycerides Cholesterol Total LDL Cholesterol HDL Cholesterol Opiates Screen Negative Methadone Screen Negative Barbiturate Screen Negative Phencyclidine Screen Negative Ur Amphetamines Screen Negative MDMA (Ecstasy) Screen Negative Benzodiazepines Screen Negative Cocaine Screen Negative U Marijuana (THC) Screen Negative RPR Titer Nonreactive 05/20/17 05/21/17 05/21/17 21:15 05:15 05:15 WBC 10.7 H RBC 3.86 L Hgb 12.3 Hct 35.3 L MCV 91.5 MCH 31.9 MCHC 34.8 RDW 13.0 Plt Count 187 MPV 8.3 PTT (Actin FS) 54.0 H D Sodium 138 Potassium 4.8 Chloride 102 Carbon Dioxide 25 Anion Gap 11 BUN 78 H D Creatinine 11.8 H* Creat Clearance w eGFR 4.23 Random Glucose 94 D Calcium 8.0 L Phosphorus 6.4 H Magnesium 2.3 Total Bilirubin 0.4 AST 12 L ALT 18 Alkaline Phosphatase 60 Total Protein 5.1 L Albumin 2.6 L Triglycerides 85 D Cholesterol 98 Total LDL Cholesterol 50 D HDL Cholesterol 39 L D Opiates Screen Methadone Screen Barbiturate Screen Phencyclidine Screen Ur Amphetamines Screen MDMA (Ecstasy) Screen Benzodiazepines Screen Cocaine Screen U Marijuana (THC) Screen RPR Titer 05/21/17 05:15 WBC RBC Hgb Hct MCV MCH MCHC RDW Plt Count MPV PTT (Actin FS) 68.7 H Sodium Potassium Chloride Carbon Dioxide Anion Gap BUN Creatinine Creat Clearance w eGFR Random Glucose Calcium Phosphorus Magnesium Total Bilirubin AST ALT Alkaline Phosphatase Total Protein Albumin Triglycerides Cholesterol Total LDL Cholesterol HDL Cholesterol Opiates Screen Methadone Screen Barbiturate Screen Phencyclidine Screen Ur Amphetamines Screen MDMA (Ecstasy) Screen Benzodiazepines Screen Cocaine Screen U Marijuana (THC) Screen RPR Titer Problem List - Problems (1) Acute renal failure Assessment/Plan: Code(s): N17.9 - ACUTE KIDNEY FAILURE, UNSPECIFIED (2) Atrial fibrillation with RVR Assessment/Plan: Code(s): I48.91 - UNSPECIFIED ATRIAL FIBRILLATION (3) HTN (hypertension) Assessment/Plan: Code(s): I10 - ESSENTIAL (PRIMARY) HYPERTENSION (4) Confusion Assessment/Plan: Code(s): R41.0 - DISORIENTATION, UNSPECIFIED PLAN: Titrate BP Meds O2 as needed Aspiration precautions Strict I&O IV Heparin BD TX Dr Zepeda Critical Care Time Total Critical Care Time: 35 Critical Care Statement: The care of this patient involved high complexity decision making to prevent further life threatening deterioration of the patient 's condition and/or to evalute & treat vital organ system(s) failure or risk of failure.
--- NOTE | 2017-05-21 15:50 | PN ---
Progress Note (short form) - Note Progress Note: Renal Follow up for SILAS Pt seen and examined in the ICU s/p dialysis this am total of 1.5L UF removed urine output improved overnight Vital Signs Temperature 98.1 F 05/21/17 14:00 Pulse Rate 81 05/21/17 14:05 Respiratory Rate 19 05/21/17 14:05 Blood Pressure 158/72 05/21/17 14:05 O2 Sat by Pulse Oximetry (%) 97 05/21/17 10:00 Intake & Output 05/18/17 05/19/17 05/20/17 05/21/17 23:59 23:59 23:59 23:59 Intake Total 2200 210 1220 650 Output Total 115 80 230 800 Balance 2085 130 990 -150 Weight 262 lb 4.8 oz 259 lb 258 lb 6.108 oz 254 lb 8 oz Gen: awake and alert, hard of hearing CVS: RRR Lungs: CTA, anterior exam Abd: soft NT/ND Ext: No edema, clubbing or cyanosis : no bladder distension, dutton catheter in place CBC, BMP 05/21/17 05:15 05/21/17 05:15 Laboratory Tests 05/21/17 05:15 Calcium 8.0 L Phosphorus 6.4 H Magnesium 2.3 Albumin 2.6 L Current Medications Alprazolam (Xanax -) 0.25 mg PO Q8H PRN PRN Reason: ANXIETY Artificial Tears (Artificial Tears) 1 drop OU BID PRN PRN Reason: DRY EYES Last Admin: 05/21/17 09:47 Dose: 1 drop Chlorhexidine Gluconate (Hibiclens For Decolonization -) 1 applic TP HS [facility] Last Admin: 05/20/17 21:29 Dose: 1 applic Diltiazem HCl (Cardizem Cd -) 240 mg PO DAILY [facility] Last Admin: 05/21/17 09:42 Dose: 240 mg Heparin Sodium (Porcine) (Heparin -) 1,000 unit IVPUSH PRN PRN PRN Reason: Heparin Heparin Sodium (Porcine) (Heparin -) 5,000 unit IVPUSH PRN PRN PRN Reason: Heparin Hydralazine HCl (Apresoline -) 25 mg PO TID [facility] Last Admin: 05/21/17 14:42 Dose: 25 mg Heparin Sodium (Porcine) 25, (000 unit/ Sodium Chloride) 500 mls @ 20 mls/hr IV TITR BURKE; 1,000 UNIT/HR PRN Reason: Protocol Last Admin: 05/21/17 12:59 Dose: 20 mls/hr Mupirocin (Bactroban Ointment (For Decolonization) -) 1 applic NS BID [facility] Stop: 05/23/17 09:59 Last Admin: 05/21/17 12:57 Dose: 1 applic Nicotine (Nicoderm Patch -) 14 mg TD DAILY [facility] Last Admin: 05/21/17 09:43 Dose: 14 mg Pantoprazole Sodium (Protonix -) 40 mg PO DAILY [facility] Last Admin: 05/21/17 09:42 Dose: 40 mg A/P 76 year old gentleman with PMhx of Afib on Coumadin, COPD, Hyperlipidemia, DM Type 2, Hypertension who presented with AMS and found to have BUN/Cr of 109/11 and K of 7.8. #Acute Renal failure with hyperkalemia Etilogy of renal failure appears to be ATN Urine studies showed no signs of nephrotic range proteinuira or active sediment Serologic work up sent, results pending will continue dialysis as needed if urine output not significantly improved by tomorrow or if BUN/Cr not improving would likely need a tunneled hd catheter Trend BUN/Cr dose all meds for Cr Cl less then 15 [facility] Problem List - Problems (1) Acute renal failure Code(s): N17.9 - ACUTE KIDNEY FAILURE, UNSPECIFIED (2) Atrial fibrillation with RVR Code(s): I48.91 - UNSPECIFIED ATRIAL FIBRILLATION (3) HTN (hypertension) Code(s): I10 - ESSENTIAL (PRIMARY) HYPERTENSION (4) Hyperkalemia Code(s): E87.5 - HYPERKALEMIA (5) Uremia Code(s): N19 - UNSPECIFIED KIDNEY FAILURE (6) Metabolic acidosis Code(s): E87.2 - ACIDOSIS (7) Hyperphosphatemia Code(s): E83.39 - OTHER DISORDERS OF PHOSPHORUS METABOLISM (8) Hyponatremia Code(s): E87.1 - HYPO-OSMOLALITY AND HYPONATREMIA
[2017-05-21] MEDS ORDERED: FUROSEMIDE 100 MG/10 ML INJECTABLE VIAL IVPB ONE (18:00)
[2017-05-21] MEDS: ALPRAZolam 0.25 MG TABLET PO PRN (18:20)
[2017-05-21] MEDS: NYSTATIN 500,000 UNITS/5 ML SUSPENSION PO SCH (21:21)
[2017-05-21] MEDS: CHLORHEXIDINE GLUCONATE 4% CLEANSER FOR DECOLONIZATION TP SCH (21:21)
[2017-05-22 00:07] LABS: A/G RATIO 1.2 (0.7-1.7); ALBUMIN 2.9 g/dL (2.9-4.4); GLOBULIN, TOTAL 2.5 g/dL (2.2-3.9); M-SPIKE Not Observed g/dL (Not Observed); TOTAL PROTEIN 5.4 g/dL (6.0-8.5)
[2017-05-22] MEDS: NYSTATIN 500,000 UNITS/5 ML SUSPENSION PO SCH ×5 (01:00→23:25)
[2017-05-22] MEDS: ALPRAZolam 0.25 MG TABLET PO PRN (03:52)
[2017-05-22] MEDS ORDERED: PT OWN MED DRAWER 7, Y5N ONE (04:51)
[2017-05-22] MEDS: hydrALAZINE HCL 25 MG TABLET (FP) PO SCH ×3 (05:32→21:25)
--- NOTE | 2017-05-22 07:00 | PN ---
Progress Note (short form) - Note Progress Note: Chief Complaint: Events noted, notes reviewed. Remains confused and disoriented , atrial fibrillation persists rate controlled, denies any chest pain or dyspnea History of Present Illness: Seen and examined in the ICU. Events noted notes reviewed, remains confused and disoriented, atrial fibrillation persists rate controlled, denies any chest pain or dyspnea Remains on Heparin drip Echocardiography revealed normal LV size and systolic function with no significant valvular pathology - Current Medication List Current Medications Alprazolam (Xanax -) 0.25 mg PO Q8H PRN PRN Reason: ANXIETY Last Admin: 05/22/17 03:52 Dose: 0.25 mg Artificial Tears (Artificial Tears) 1 drop OU BID PRN PRN Reason: DRY EYES Last Admin: 05/21/17 21:21 Dose: 1 drop Chlorhexidine Gluconate (Hibiclens For Decolonization -) 1 applic TP HS [facility] Last Admin: 05/21/17 21:21 Dose: 1 applic Diltiazem HCl (Cardizem Cd -) 240 mg PO DAILY [facility] Last Admin: 05/21/17 09:42 Dose: 240 mg Heparin Sodium (Porcine) (Heparin -) 1,000 unit IVPUSH PRN PRN PRN Reason: Heparin Heparin Sodium (Porcine) (Heparin -) 5,000 unit IVPUSH PRN PRN PRN Reason: Heparin Hydralazine HCl (Apresoline -) 25 mg PO TID [facility] Last Admin: 05/22/17 05:32 Dose: 25 mg Heparin Sodium (Porcine) 25, (000 unit/ Sodium Chloride) 500 mls @ 20 mls/hr IV TITR BURKE; 1,000 UNIT/HR PRN Reason: Protocol Last Admin: 05/21/17 12:59 Dose: 20 mls/hr Mupirocin (Bactroban Ointment (For Decolonization) -) 1 applic NS BID [facility] Stop: 05/23/17 09:59 Last Admin: 05/21/17 21:21 Dose: 1 applic Nicotine (Nicoderm Patch -) 14 mg TD DAILY [facility] Last Admin: 05/21/17 09:43 Dose: 14 mg Nystatin (Nystatin Oral Suspension -) 500,000 units PO Q6HPO [facility] Last Admin: 05/22/17 05:32 Dose: 500,000 units Pantoprazole Sodium (Protonix -) 40 mg PO DAILY [facility] Last Admin: 05/21/17 09:42 Dose: 40 mg Review of Systems Cardiovascular: As noted above Respiratory: denies: Cough or Sputum Production Gastrointestinal: denies: Nausea, Vomiting, Diarrhea, Constipation or Abdominal Discomfort Musculoskeletal: No Symptoms Reported Endocrine: No Symptoms Reported - Objective Vital Signs: Last Vital Signs Temp Pulse Resp BP Pulse Ox 98.4 F 71 16 153/67 97 05/22/17 02:00 05/22/17 04:00 05/22/17 04:00 05/22/17 04:00 05/21/17 19:44 Intake & Output 05/19/17 05/20/17 05/21/17 05/22/17 23:59 23:59 23:59 23:59 Intake Total 210 1220 1610 340 Output Total 80 230 1000 300 Balance 130 990 610 40 Weight 259 lb 258 lb 6.108 oz 254 lb 8 oz 252 lb 8 oz Neck: Supple Negative JVD No Bruit Cardiovascular: S1 S2 Irregularly Irregular No Murmurs, Clicks or Gallops Respiratory: Diminished Breath sounds at the Bases Gastrointestinal: Soft Benign Normal Bowel Sounds Ext: No Edema Labs: CBC, BMP 05/21/17 05:15 INR, PTT INR 1.21 (0.82-1.09) H 05/20/17 06:00 CBC from this AM pending Assessment/Plan ASSESSMENT: 1. Acute renal failure currently on HD as per renal service 2. CAD angina pectoris, stable 3. Diastolic LV dysfunction with class 0-I NYHA classification LV failure, euvolemic 4. Permanent atrial fibrillation on chronic A/C with Coumadin, transient supra- therapeutic INR, currently on Heparin 5. Post Digoxin toxicity 6. Hyperkalemia, resolved 7. Altered mental status/toxic metabolic encephalopathy, persistent 8. Hypertension 9. DM 10. COPD/emphysema PLAN: 1. Continue HD as per renal service, monitor urine output 2. Continue Cardizem CD 3. As outlined in initial note if additional ayrial fibrillation rate control is desired will add B-Blockers 4. Continue Hydralazine and may titrate dosage as needed 5. Continue Heparin and resume Coumadin once no further intervention is planned 6. As outlined defer resumption of Digoxin at this point 7. Follow CBC from this AM Caro Ordoñez MD
[2017-05-22 07:01] LABS: MCH 31.6 pg (25.7-33.7); MCHC 34.5 g/dl (32.0-35.9); MEAN CELL VOLUME 91.7 fl (80-96); MEAN PLT VOLUME 8.5 fl (7.5-11.1); PLATELET COUNT 177 K/MM3 (134-434); RDW 12.7 % (11.9-15.9); WHITE BLOOD COUNT 9.2 K/mm3 (4.0-10.0)
[2017-05-22 07:36] LABS: ALBUMIN 2.6 g/dl (3.4-5.0); ALK PHOS 62 U/L (45-117); ANION GAP 8 (8-16); BILIRUBIN,TOTAL 0.5 mg/dL (0.2-1.0); CALCIUM 7.9 mg/dL (8.5-10.1); CO2 30 mmol/L (21-32); GLUCOSE,RANDOM 93 mg/dL (74-106); MAGNESIUM 2.1 mg/dL (1.8-2.4); PHOSPHOROUS 4.9 mg/dL (2.5-4.9); SGOT/AST 16 U/L (15-37); SGPT/ALT 23 U/L (12-78); TOT PROT 5.2 g/dl (6.4-8.2)
[2017-05-22 07:47] LABS: CREATININE 8.4 mg/dL (0.7-1.3)
--- NOTE | 2017-05-22 08:17 | PN ---
Progress Note, Physician History of Present Illness: admitted with ARF pt confused but improving MS - Current Medication List Current Medications: Active Medications Alprazolam (Xanax -) 0.25 mg PO Q8H PRN PRN Reason: ANXIETY Last Admin: 05/22/17 03:52 Dose: 0.25 mg Artificial Tears (Artificial Tears) 1 drop OU BID PRN PRN Reason: DRY EYES Last Admin: 05/21/17 21:21 Dose: 1 drop Chlorhexidine Gluconate (Hibiclens For Decolonization -) 1 applic TP HS [facility] Last Admin: 05/21/17 21:21 Dose: 1 applic Diltiazem HCl (Cardizem Cd -) 240 mg PO DAILY [facility] Last Admin: 05/21/17 09:42 Dose: 240 mg Heparin Sodium (Porcine) (Heparin -) 1,000 unit IVPUSH PRN PRN PRN Reason: Heparin Heparin Sodium (Porcine) (Heparin -) 5,000 unit IVPUSH PRN PRN PRN Reason: Heparin Hydralazine HCl (Apresoline -) 25 mg PO TID [facility] Last Admin: 05/22/17 05:32 Dose: 25 mg Heparin Sodium (Porcine) 25, (000 unit/ Sodium Chloride) 500 mls @ 20 mls/hr IV TITR BURKE; 1,000 UNIT/HR PRN Reason: Protocol Last Admin: 05/21/17 12:59 Dose: 20 mls/hr Mupirocin (Bactroban Ointment (For Decolonization) -) 1 applic NS BID [facility] Stop: 05/23/17 09:59 Last Admin: 05/21/17 21:21 Dose: 1 applic Nicotine (Nicoderm Patch -) 14 mg TD DAILY [facility] Last Admin: 05/21/17 09:43 Dose: 14 mg Nystatin (Nystatin Oral Suspension -) 500,000 units PO Q6HPO [facility] Last Admin: 05/22/17 05:32 Dose: 500,000 units Pantoprazole Sodium (Protonix -) 40 mg PO DAILY [facility] Last Admin: 05/21/17 09:42 Dose: 40 mg - Objective Vital Signs: Vital Signs Temperature 98.4 F 05/22/17 02:00 Pulse Rate 71 05/22/17 04:00 Respiratory Rate 16 05/22/17 04:00 Blood Pressure 153/67 05/22/17 04:00 O2 Sat by Pulse Oximetry (%) 97 05/21/17 19:44 Cardiovascular: Yes: S1, S2 Respiratory: Yes: Regular, CTA Bilaterally Gastrointestinal: Yes: Normal Bowel Sounds, Soft. No: Tenderness Neurological: Yes: Alert, Oriented Labs: CBC, BMP 05/22/17 05:20 05/22/17 06:00 INR, PTT INR 1.21 (0.82-1.09) H 05/20/17 06:00 Problem List - Problems (1) Acute renal failure Assessment/Plan: DIALYSIS PER RENAL CR 8 FOLLOW LABS Code(s): N17.9 - ACUTE KIDNEY FAILURE, UNSPECIFIED (2) Atrial fibrillation with RVR Assessment/Plan: OFF COUMADIN-- ON HEPARIN DRIP MONITOR RATE ON MEDS Code(s): I48.91 - UNSPECIFIED ATRIAL FIBRILLATION (3) HTN (hypertension) Assessment/Plan: CARDIZEM 240 HYDRALAZINE 25 TID MONITOR AND ADJUST Code(s): I10 - ESSENTIAL (PRIMARY) HYPERTENSION (4) Confusion Assessment/Plan: IMPROVING MAYBE DUE TO RENAL CT NEGATIVE MRI OF HEAD--R/O CVA Code(s): R41.0 - DISORIENTATION, UNSPECIFIED
[2017-05-22] MEDS: NICOTINE 14 MG/24 HOURS TOPICAL PATCH TD SCH (11:24)
[2017-05-22] MEDS: MUPIROCIN 2% TOPICAL OINTMENT FOR DECOLONIZATION NS SCH ×2 (11:25→21:08)
[2017-05-22] MEDS: PANTOPRAZOLE 40 MG TABLET (FP) PO SCH (11:32)
[2017-05-22] MEDS ORDERED: FUROSEMIDE 100 MG/10 ML INJECTABLE VIAL IVPB ONE (11:50)
--- NOTE | 2017-05-22 12:00 | PN ---
Progress Note (short form) - Note Progress Note: Renal Follow up for SILAS Pt seen and examined in the ICU awake and alert calm today, able to have a normal conversation daughter at the bedside s/p Hd yesterday good urine output overnight with IV Lasix Vital Signs Temperature 98.4 F 05/22/17 02:00 Pulse Rate 76 05/22/17 11:20 Respiratory Rate 16 05/22/17 04:00 Blood Pressure 153/67 05/22/17 04:00 O2 Sat by Pulse Oximetry (%) 95 05/22/17 11:20 Intake & Output 05/19/17 05/20/17 05/21/17 05/22/17 23:59 23:59 23:59 23:59 Intake Total 210 1220 1610 340 Output Total 80 230 1000 300 Balance 130 990 610 40 Weight 259 lb 258 lb 6.108 oz 254 lb 8 oz 252 lb 8 oz Gen: awake and alert, hard of hearing CVS: RRR Lungs: CTA, anterior exam Abd: soft NT/ND Ext: No edema, clubbing or cyanosis : no bladder distension, dutton catheter in place CBC, BMP 05/22/17 05:20 05/22/17 06:00 Laboratory Tests 05/22/17 06:00 Calcium 7.9 L Phosphorus 4.9 D Magnesium 2.1 Current Medications Alprazolam (Xanax -) 0.25 mg PO Q8H PRN PRN Reason: ANXIETY Last Admin: 05/22/17 03:52 Dose: 0.25 mg Artificial Tears (Artificial Tears) 1 drop OU BID PRN PRN Reason: DRY EYES Last Admin: 05/21/17 21:21 Dose: 1 drop Chlorhexidine Gluconate (Hibiclens For Decolonization -) 1 applic TP HS [facility] Last Admin: 05/21/17 21:21 Dose: 1 applic Diltiazem HCl (Cardizem Cd -) 240 mg PO DAILY [facility] Last Admin: 05/22/17 11:24 Dose: 240 mg Heparin Sodium (Porcine) (Heparin -) 1,000 unit IVPUSH PRN PRN PRN Reason: Heparin Heparin Sodium (Porcine) (Heparin -) 5,000 unit IVPUSH PRN PRN PRN Reason: Heparin Hydralazine HCl (Apresoline -) 25 mg PO TID [facility] Last Admin: 05/22/17 05:32 Dose: 25 mg Heparin Sodium (Porcine) 25, (000 unit/ Sodium Chloride) 500 mls @ 20 mls/hr IV TITR BURKE; 1,000 UNIT/HR PRN Reason: Protocol Last Admin: 05/21/17 12:59 Dose: 20 mls/hr Mupirocin (Bactroban Ointment (For Decolonization) -) 1 applic NS BID [facility] Stop: 05/23/17 09:59 Last Admin: 05/22/17 11:25 Dose: 1 applic Nicotine (Nicoderm Patch -) 14 mg TD DAILY [facility] Last Admin: 05/22/17 11:24 Dose: 14 mg Nystatin (Nystatin Oral Suspension -) 500,000 units PO Q6HPO [facility] Last Admin: 05/22/17 11:32 Dose: 500,000 units Pantoprazole Sodium (Protonix -) 40 mg PO DAILY [facility] Last Admin: 05/22/17 11:32 Dose: 40 mg A/P 76 year old gentleman with PMhx of Afib on Coumadin, COPD, Hyperlipidemia, DM Type 2, Hypertension who presented with AMS and found to have BUN/Cr of 109/11 and K of 7.8. #Acute Renal failure with hyperkalemia Etiology of renal failure appears to be ATN s/p dialysis yesterday, no indication for Hd today urine output imporving with IV Lasix, redose 160mg IVPB today Trend BUN/Cr over next 24 hours, if BUN/Cr stable or improved can hold off further dialysis but if up trending will need continued dialysis and permacath placement Consult Vascular Sx for tenative Hd catheter placement for Saturday Serologic work up negative so far, Negative JEANNA, SPEP, ANCAs pending Repeat Urine studies today Dose all meds for Cr Cl less then 15 [facility] Problem List - Problems (1) Acute renal failure Code(s): N17.9 - ACUTE KIDNEY FAILURE, UNSPECIFIED (2) Atrial fibrillation with RVR Code(s): I48.91 - UNSPECIFIED ATRIAL FIBRILLATION (3) HTN (hypertension) Code(s): I10 - ESSENTIAL (PRIMARY) HYPERTENSION (4) Hyperkalemia Code(s): E87.5 - HYPERKALEMIA (5) Uremia Code(s): N19 - UNSPECIFIED KIDNEY FAILURE (6) Metabolic acidosis Code(s): E87.2 - ACIDOSIS (7) Hyperphosphatemia Code(s): E83.39 - OTHER DISORDERS OF PHOSPHORUS METABOLISM (8) Hyponatremia Code(s): E87.1 - HYPO-OSMOLALITY AND HYPONATREMIA
--- NOTE | 2017-05-22 12:46 | PN ---
Teaching Attending Note Name of Resident: Leann Calderon ATTENDING PHYSICIAN STATEMENT I saw and evaluated the patient. I reviewed the resident's note and discussed the case with the resident. I agree with the resident's findings and plan as documented. SUBJECTIVE: Patient seen and examined in the ICU. Awake and interactive. Mental status continues to slowly improve. Denies CP or SOB. Intake & Output 05/19/17 05/20/17 05/21/17 05/22/17 23:59 23:59 23:59 23:59 Intake Total 210 1220 1610 340 Output Total 80 230 1000 300 Balance 130 990 610 40 Weight 259 lb 258 lb 6.108 oz 254 lb 8 oz 252 lb 8 oz Last Vital Signs Temp Pulse Resp BP Pulse Ox 98.4 F 76 16 185/133 95 05/22/17 02:00 05/22/17 11:20 05/22/17 10:00 05/22/17 12:00 05/22/17 11:20 Active Medications Alprazolam (Xanax -) 0.25 mg PO Q8H PRN PRN Reason: ANXIETY Last Admin: 05/22/17 03:52 Dose: 0.25 mg Artificial Tears (Artificial Tears) 1 drop OU BID PRN PRN Reason: DRY EYES Last Admin: 05/21/17 21:21 Dose: 1 drop Chlorhexidine Gluconate (Hibiclens For Decolonization -) 1 applic TP HS [facility] Last Admin: 05/21/17 21:21 Dose: 1 applic Diltiazem HCl (Cardizem Cd -) 240 mg PO DAILY [facility] Last Admin: 05/22/17 11:24 Dose: 240 mg Heparin Sodium (Porcine) (Heparin -) 1,000 unit IVPUSH PRN PRN PRN Reason: Heparin Heparin Sodium (Porcine) (Heparin -) 5,000 unit IVPUSH PRN PRN PRN Reason: Heparin Hydralazine HCl (Apresoline -) 25 mg PO TID [facility] Last Admin: 05/22/17 05:32 Dose: 25 mg Heparin Sodium (Porcine) 25, (000 unit/ Sodium Chloride) 500 mls @ 20 mls/hr IV TITR [facility]; 1,000 UNIT/HR PRN Reason: Protocol Last Admin: 05/21/17 12:59 Dose: 20 mls/hr Mupirocin (Bactroban Ointment (For Decolonization) -) 1 applic NS BID [facility] Stop: 05/23/17 09:59 Last Admin: 05/22/17 11:25 Dose: 1 applic Nicotine (Nicoderm Patch -) 14 mg TD DAILY [facility] Last Admin: 05/22/17 11:24 Dose: 14 mg Nystatin (Nystatin Oral Suspension -) 500,000 units PO Q6HPO [facility] Last Admin: 05/22/17 11:32 Dose: 500,000 units Pantoprazole Sodium (Protonix -) 40 mg PO DAILY [facility] Last Admin: 05/22/17 11:32 Dose: 40 mg GENERAL: The patient is awake, alert, less confused HEAD: Normal with no signs of trauma. EYES: EOM intact, no pallor or icterus. ENT: Ears normal, moist mucous membranes. NECK: Trachea midline, full range of motion, supple. LUNGS: Few scattered rhonchi, no wheeze HEART: Irregularly irregular rate and rhythm, (+) ESM ABDOMEN: Soft, nontender, nondistended, normoactive bowel sounds, no guarding, no rebound, no hepatosplenomegaly, no masses. EXTREMITIES: 2+ pulses, warm, well-perfused, no edema. NEUROLOGICAL: Non-focal SKIN: Warm, dry, normal turgor, no rashes or lesions noted Laboratory Results - last 24 hr 05/20/17 05/22/17 05/22/17 10:40 05:20 05:20 WBC 9.2 RBC 3.95 L Hgb 12.5 Hct 36.2 MCV 91.7 MCH 31.6 MCHC 34.5 RDW 12.7 Plt Count 177 MPV 8.5 PTT (Actin FS) 70.5 H Sodium Potassium Chloride Carbon Dioxide Anion Gap BUN Creatinine Creat Clearance w eGFR Random Glucose Calcium Phosphorus Magnesium Total Bilirubin AST ALT Alkaline Phosphatase Prot Electrophoresis Serum Total Protein 5.4 L Total Protein Albumin 2.9 Globulin 2.5 Albumin/Globulin Ratio 1.2 Dougj-4-Rjjucztcl 0.3 Ihidy-5-Tmaakoiub 0.8 Beta Globulins 0.8 Gamma Globulins 0.6 SHIELA M-Eriberto Not observed JEANNA Screen Negative 05/22/17 06:00 WBC RBC Hgb Hct MCV MCH MCHC RDW Plt Count MPV PTT (Actin FS) Sodium 141 Potassium 4.4 Chloride 103 Carbon Dioxide 30 Anion Gap 8 BUN 44 H D Creatinine 8.4 H* D Creat Clearance w eGFR 6.27 Random Glucose 93 Calcium 7.9 L Phosphorus 4.9 D Magnesium 2.1 Total Bilirubin 0.5 D AST 16 D ALT 23 D Alkaline Phosphatase 62 Prot Electrophoresis Serum Total Protein Total Protein 5.2 L Albumin 2.6 L Globulin Albumin/Globulin Ratio Znbzr-1-Cwgvbidua Yrdpx-8-Dwmxzjtnz Beta Globulins Gamma Globulins SHIELA M-Eriberto JEANNA Screen Problem List - Problems (1) Acute renal failure Assessment/Plan: Code(s): N17.9 - ACUTE KIDNEY FAILURE, UNSPECIFIED (2) Atrial fibrillation with RVR Assessment/Plan: Code(s): I48.91 - UNSPECIFIED ATRIAL FIBRILLATION (3) HTN (hypertension) Assessment/Plan: Code(s): I10 - ESSENTIAL (PRIMARY) HYPERTENSION (4) Confusion Assessment/Plan: Code(s): R41.0 - DISORIENTATION, UNSPECIFIED PLAN: PO as tolerated Titrate BP Meds O2 as needed Aspiration precautions Strict I&O IV Heparin BD TX HD per Renal Dr Zepeda Critical Care Time Total Critical Care Time: 35 Critical Care Statement: The care of this patient involved high complexity decision making to prevent further life threatening deterioration of the patient 's condition and/or to evalute & treat vital organ system(s) failure or risk of failure.
[2017-05-22] MEDS: HEPARIN - 25,000 UNIT in SODIUM CHLORIDE 495 ML IV SCH (13:24)
--- NOTE | 2017-05-22 13:29 | PN ---
Physical Exam: SUBJECTIVE: Patient seen and examined at bed side this morning. More alert, awake, not confused today. He was curious to know how he came to the hospital. Denies chest pain, sob, cough, palpitation, abdominal pain, nausea or vomiting. No acute overnight events. OBJECTIVE: Vital Signs Period Temp Pulse Resp BP Sys/Ching Pulse Ox Last 24 Hr 98.1 F-98.4 F 71-83 16-21 114-185/54-133 95-97 GENERAL: The patient is awake, alert, and oriented x 3, in no acute distress, dutton in place. HEAD: Normal with no signs of trauma. EYES: Crusted eyes + improving, EOM intact, no pallor or icterus. ENT: Ears normal, moist mucous membranes. NECK: Trachea midline, full range of motion, supple. LUNGS: B/L Breath sounds equal, clear to auscultation bilaterally, no wheezes, no crackles, no accessory muscle use. HEART: Irregularly irregular rate and rhythm, S1, S2 with soft systolic murmur. ABDOMEN: Soft, nontender, nondistended, normoactive bowel sounds, no guarding, no rebound, no hepatosplenomegaly, no masses. EXTREMITIES: 2+ pulses, warm, well-perfused, no edema. NEUROLOGICAL: No facial droop, EOM intact, rest of the neuro exam unable to perform because he was uncooperative, speech is better today .gait not observed. PSYCH: Normal mood, normal affect. SKIN: Warm, dry, normal turgor, no rashes or lesions noted Laboratory Results - last 24 hr 05/20/17 05/22/17 05/22/17 10:40 05:20 05:20 WBC 9.2 RBC 3.95 L Hgb 12.5 Hct 36.2 MCV 91.7 MCH 31.6 MCHC 34.5 RDW 12.7 Plt Count 177 MPV 8.5 PTT (Actin FS) 70.5 H Sodium Potassium Chloride Carbon Dioxide Anion Gap BUN Creatinine Creat Clearance w eGFR Random Glucose Calcium Phosphorus Magnesium Total Bilirubin AST ALT Alkaline Phosphatase Prot Electrophoresis Serum Total Protein 5.4 L Total Protein Albumin 2.9 Globulin 2.5 Albumin/Globulin Ratio 1.2 Mghsv-5-Brrgxdspq 0.3 Ssdnh-1-Lyowxfopu 0.8 Beta Globulins 0.8 Gamma Globulins 0.6 SHIELA M-Eriberto Not observed JEANNA Screen Negative 05/22/17 06:00 WBC RBC Hgb Hct MCV MCH MCHC RDW Plt Count MPV PTT (Actin FS) Sodium 141 Potassium 4.4 Chloride 103 Carbon Dioxide 30 Anion Gap 8 BUN 44 H D Creatinine 8.4 H* D Creat Clearance w eGFR 6.27 Random Glucose 93 Calcium 7.9 L Phosphorus 4.9 D Magnesium 2.1 Total Bilirubin 0.5 D AST 16 D ALT 23 D Alkaline Phosphatase 62 Prot Electrophoresis Serum Total Protein Total Protein 5.2 L Albumin 2.6 L Globulin Albumin/Globulin Ratio Bdjjz-1-Cmyydxasm Cxpez-4-Pishqkpzq Beta Globulins Gamma Globulins SHIELA M-Eriberto JEANNA Screen Active Medications Generic Name Dose Route Start Last Admin Trade Name Freq PRN Reason Stop Dose Admin Alprazolam 0.25 mg 05/21/17 08:49 05/22/17 03:52 Xanax - PO 0.25 mg Q8H PRN Administration ANXIETY Artificial Tears 1 drop 05/21/17 08:22 05/21/17 21:21 Artificial Tears OU 1 drop BID PRN Administration DRY EYES Chlorhexidine Gluconate 1 applic 05/18/17 22:00 05/21/17 21:21 Hibiclens For Decolonization - TP 1 applic HS [facility] Administration Diltiazem HCl 240 mg 05/20/17 10:00 05/22/17 11:24 Cardizem Cd - PO 240 mg DAILY [facility] Administration Heparin Sodium (Porcine) 1,000 unit 05/20/17 11:35 Heparin - IVPUSH PRN PRN Heparin Heparin Sodium (Porcine) 5,000 unit 05/20/17 11:35 Heparin - IVPUSH PRN PRN Heparin Hydralazine HCl 25 mg 05/20/17 14:00 05/22/17 05:32 Apresoline - PO 25 mg TID [facility] Administration Heparin Sodium (Porcine) 25, 500 mls @ 20 mls/hr 05/20/17 11:45 05/22/17 13:24 000 unit/ Sodium Chloride IV 20 mls/hr TITR [facility] Administration Protocol 1,000 UNIT/HR Mupirocin 1 applic 05/18/17 10:00 05/22/17 11:25 Bactroban Ointment (For Decolonization) - NS 05/23/17 09:59 1 applic BID [facility] Administration Nicotine 14 mg 05/20/17 10:00 05/22/17 11:24 Nicoderm Patch - TD 14 mg DAILY [facility] Administration Nystatin 500,000 units 05/21/17 18:00 05/22/17 11:32 Nystatin Oral Suspension - PO 500,000 units Q6HPO [facility] Administration Pantoprazole Sodium 40 mg 05/21/17 10:00 05/22/17 11:32 Protonix - PO 40 mg DAILY [facility] Administration ASSESSMENT/PLAN: The patient is a 76 yo M poor historian with a past medical history significant for chronic AF on anticoagulation, emphysema with long history of cigarette smoking, diverticulitis, hyperlipidemia, type 2 DM and HTN admitted for evaluation of Altered mental status and Acute renal failure. Neurology: Altered Mental Status most likely secondary to uremic encephalopathy-Improved MRI of head done today to r/o CVA- No acute intracranial pathology. CT head negative Hopefully, it will improve after dialysis. Chronic sinusitis with a 2cm polyp vs retention cyst in the left maxillary antrum seen in the MRI of brain Renal: Acute Renal Failure likely ATN Baseline creatinine is 0.8 12/05/2015, on arrival creatinine was 11.Creatinine today is 8.4 from 11.8 Dialysis done yesterday. Trial of Lasix IV 120mg Lasix given this morning, reassess in the evening whether to give more lasix or not. I's and O's, clean urine today, urinary output about 300mls today, 1000mls yesterday. D/w Dr. Carmona, plan for possible permacath placement on Saturday, depending on the renal function requiring more dialysis. Will inform Dr. Ogden. Cardiology Atrial fibrillation with RVR rate controlled Continue Heparin drip, monitor H/H Continue Cardizem CD 240 mg PO Daily Echo: No regional wall abnormalities, normal left ventricular systolic function. Hypertension-controlled Continue Hydralazine 25mg PO TID Pulmonary COPD not on home oxygen- Not in exacerbation Chest CT done today, report pending. Smoking cessation couseling, Nitcotine patch daily. Oxygen prn Endocrinology Pre-Diabetic; CdI4f-2.8 Diet and exercise counseling Dry Eyes Artificial tears Digoxin toxicity Dig level was 2.1 on arrival Emergent dialysis was done D/C Digoxin FEN Not on IV fluids Electrolytes to be repeated at 6pm today. Renal Diet Prophylaxis For DVT: On Heparin drip For GI: Protonix 40mg PO Daily. Code Status: Full Code Home Medication: Patient gets meds by mail order. Call placed to Dr. Castro's office. Here are the updated med list: Coumadin 4mg Daily; Cardia 120mg; Gemfibrozil 600mg Daily, Digoxin 125mcg, Atorvastain 20mg Daily, Lovaza 1gm BID Metoprolol tartarate 100mg PO BID and Ranitidine 150mg Daily- Hasn't picked up since few months. Dispo: Admitted in ICU. Can be transferred to [facility], awaiting for Dr. Castro' s approval. Illness, Investigation and Plan of care explained to the patient's family yesterday. They verbalized understanding. Case seen and discussed with Dr. Zepeda. Visit type - Emergency Visit Emergency Visit: Yes ED Registration Date: 05/17/17 Care time: The patient presented to the Emergency Department on the above date and was hospitalized for further evaluation of their emergent condition. - New Patient This patient is new to me today: No - Critical Care Critical Care patient: Yes Total Critical Care Time (in minutes): 35 Critical Care Statement: The care of this patient involved high complexity decision making to prevent further life threatening deterioration of the patient 's condition and/or to evalute & treat vital organ system(s) failure or risk of failure.
[2017-05-22] MEDS ORDERED: ACETAMINOPHEN 1000 MG/100 ML VIAL (NON FORMULARY) IVPB ONE (16:28)
[2017-05-22 18:49] LABS: ANION GAP 10 (8-16); CALCIUM 8.2 mg/dL (8.5-10.1); CO2 27 mmol/L (21-32); GLUCOSE,RANDOM 171 mg/dL (74-106)
[2017-05-22 19:01] LABS: CREATININE 9.2 mg/dL (0.7-1.3)
[2017-05-22] MEDS: CHLORHEXIDINE GLUCONATE 4% CLEANSER FOR DECOLONIZATION TP SCH (21:08)
[2017-05-23 00:09] LABS: C-ANCA <1:20 titer (Neg:<1:20); MYELOPEROXIDASE ANTIBODY <9.0 U/mL (0.0-9.0); P-ANCA <1:20 titer (Neg:<1:20); PROTEINASE-3 ANTIBODY <3.5 U/mL (0.0-3.5)
[2017-05-23] MEDS: hydrALAZINE HCL 25 MG TABLET (FP) PO SCH ×3 (06:07→22:38)
[2017-05-23] MEDS: NYSTATIN 500,000 UNITS/5 ML SUSPENSION PO SCH ×2 (06:07→13:15)
[2017-05-23 08:03] LABS: MCH 31.3 pg (25.7-33.7); MCHC 34.3 g/dl (32.0-35.9); MEAN CELL VOLUME 91.3 fl (80-96); MEAN PLT VOLUME 8.4 fl (7.5-11.1); PLATELET COUNT 190 K/MM3 (134-434); RDW 12.9 % (11.9-15.9); WHITE BLOOD COUNT 9.6 K/mm3 (4.0-10.0)
--- NOTE | 2017-05-23 08:11 | PN ---
Progress Note, Physician Chief Complaint: Transferred to telemetry Not in distress History of Present Illness: Patient was seen and examined. Awake and alert. Chart was reviewed Denies chest pain, SOB or palpitations Atrial fibrillation variable ventricular response - Current Medication List Current Medications: Active Medications Alprazolam (Xanax -) 0.25 mg PO Q8H PRN PRN Reason: ANXIETY Last Admin: 05/22/17 03:52 Dose: 0.25 mg Artificial Tears (Artificial Tears) 1 drop OU BID PRN PRN Reason: DRY EYES Last Admin: 05/21/17 21:21 Dose: 1 drop Chlorhexidine Gluconate (Hibiclens For Decolonization -) 1 applic TP HS [facility] Last Admin: 05/22/17 21:08 Dose: Not Given Diltiazem HCl (Cardizem Cd -) 240 mg PO DAILY [facility] Last Admin: 05/22/17 11:24 Dose: 240 mg Heparin Sodium (Porcine) (Heparin -) 1,000 unit IVPUSH PRN PRN PRN Reason: Heparin Heparin Sodium (Porcine) (Heparin -) 5,000 unit IVPUSH PRN PRN PRN Reason: Heparin Hydralazine HCl (Apresoline -) 25 mg PO TID [facility] Last Admin: 05/23/17 06:07 Dose: 25 mg Heparin Sodium (Porcine) 25, (000 unit/ Sodium Chloride) 500 mls @ 20 mls/hr IV TITR [facility]; 1,000 UNIT/HR PRN Reason: Protocol Last Admin: 05/22/17 13:24 Dose: 20 mls/hr Mupirocin (Bactroban Ointment (For Decolonization) -) 1 applic NS BID [facility] Stop: 05/23/17 09:59 Last Admin: 05/22/17 21:08 Dose: Not Given Nicotine (Nicoderm Patch -) 14 mg TD DAILY [facility] Last Admin: 05/22/17 11:24 Dose: 14 mg Nystatin (Nystatin Oral Suspension -) 500,000 units PO Q6HPO [facility] Last Admin: 05/23/17 06:07 Dose: 500,000 units Pantoprazole Sodium (Protonix -) 40 mg PO DAILY [facility] Last Admin: 05/22/17 11:32 Dose: 40 mg - Objective Vital Signs: Vital Signs Temperature 98.2 F 05/23/17 06:00 Pulse Rate 72 05/23/17 06:00 Respiratory Rate 16 05/23/17 06:00 Blood Pressure 158/77 05/23/17 06:00 O2 Sat by Pulse Oximetry (%) 95 05/22/17 22:00 Neck: Yes: Supple Cardiovascular: Yes: Pulse Irregular, S1, S2 Respiratory: Yes: Diminished Gastrointestinal: Yes: Normal Bowel Sounds, Soft, Abdomen, Obese. No: Tenderness Edema: No Additional Findings/Remarks: Review of Systems Cardiovascular: Denies chest pain, SOB or palpitations Respiratory: denies: Cough or Sputum Production Gastrointestinal: denies: Nausea, Vomiting, Diarrhea, Constipation or Abdominal Discomfort Musculoskeletal: No Symptoms Reported Endocrine: No Symptoms Reported Problem List - Problems (1) Acute renal failure Code(s): N17.9 - ACUTE KIDNEY FAILURE, UNSPECIFIED (2) Atrial fibrillation with RVR Code(s): I48.91 - UNSPECIFIED ATRIAL FIBRILLATION (3) Confusion Code(s): R41.0 - DISORIENTATION, UNSPECIFIED (4) HTN (hypertension) Code(s): I10 - ESSENTIAL (PRIMARY) HYPERTENSION Qualifiers: Hypertension type: essential hypertension Qualified Code(s): I10 - Essential (primary) hypertension (5) Hyperkalemia Code(s): E87.5 - HYPERKALEMIA (6) Uremia Code(s): N19 - UNSPECIFIED KIDNEY FAILURE (7) Diabetes Code(s): E11.9 - TYPE 2 DIABETES MELLITUS WITHOUT COMPLICATIONS Qualifiers: Diabetes mellitus type: type 2 Diabetes mellitus complication status: without complication Qualified Code(s): E11.9 - Type 2 diabetes mellitus without complications (8) Supratherapeutic INR Code(s): R79.1 - ABNORMAL COAGULATION PROFILE Assessment/Plan 1. Acute renal failure now on HD as per renal 2. Digoxin toxicity 3. Hyperkalemia and supratherapeutic INR 4. Altered mental status/encephalopathy - probably due to uremia - now improved 5. Permanent atrial fibrillation on Coumadin 6. History of hypertension 7. COPD/emphysema with history of exacerbation 8. Type 2 diabetes mellitus PLAN: 1. HD as per renal service and monitor electrolytes and renal function 2. Continue Cardizem CD and titrate 3. Continue Hydralazine as tolerated 4. IV Heparin drip while INR is subtherapeutic. Continue Coumadin with INR between 2-3 Guarded Further plans are to follow Han Nowak MD
[2017-05-23 08:43] LABS: ALBUMIN 2.7 g/dl (3.4-5.0); ALK PHOS 65 U/L (45-117); ANION GAP 10 (8-16); BILIRUBIN,TOTAL 0.5 mg/dL (0.2-1.0); CALCIUM 8.6 mg/dL (8.5-10.1); CO2 28 mmol/L (21-32); GLUCOSE,RANDOM 89 mg/dL (74-106); MAGNESIUM 2.3 mg/dL (1.8-2.4); PHOSPHOROUS 5.5 mg/dL (2.5-4.9); SGOT/AST 19 U/L (15-37); SGPT/ALT 29 U/L (12-78); TOT PROT 5.4 g/dl (6.4-8.2)
--- NOTE | 2017-05-23 08:48 | PN ---
Progress Note, Physician History of Present Illness: admitted with ARF pt confused but improving MS - Current Medication List Current Medications: Active Medications Alprazolam (Xanax -) 0.25 mg PO Q8H PRN PRN Reason: ANXIETY Last Admin: 05/22/17 03:52 Dose: 0.25 mg Artificial Tears (Artificial Tears) 1 drop OU BID PRN PRN Reason: DRY EYES Last Admin: 05/21/17 21:21 Dose: 1 drop Chlorhexidine Gluconate (Hibiclens For Decolonization -) 1 applic TP HS [facility] Last Admin: 05/22/17 21:08 Dose: Not Given Diltiazem HCl (Cardizem Cd -) 240 mg PO DAILY [facility] Last Admin: 05/22/17 11:24 Dose: 240 mg Heparin Sodium (Porcine) (Heparin -) 1,000 unit IVPUSH PRN PRN PRN Reason: Heparin Heparin Sodium (Porcine) (Heparin -) 5,000 unit IVPUSH PRN PRN PRN Reason: Heparin Hydralazine HCl (Apresoline -) 25 mg PO TID [facility] Last Admin: 05/23/17 06:07 Dose: 25 mg Heparin Sodium (Porcine) 25, (000 unit/ Sodium Chloride) 500 mls @ 20 mls/hr IV TITR [facility]; 1,000 UNIT/HR PRN Reason: Protocol Last Admin: 05/22/17 13:24 Dose: 20 mls/hr Mupirocin (Bactroban Ointment (For Decolonization) -) 1 applic NS BID [facility] Stop: 05/23/17 09:59 Last Admin: 05/22/17 21:08 Dose: Not Given Nicotine (Nicoderm Patch -) 14 mg TD DAILY [facility] Last Admin: 05/22/17 11:24 Dose: 14 mg Nystatin (Nystatin Oral Suspension -) 500,000 units PO Q6HPO [facility] Last Admin: 05/23/17 06:07 Dose: 500,000 units Pantoprazole Sodium (Protonix -) 40 mg PO DAILY [facility] Last Admin: 05/22/17 11:32 Dose: 40 mg - Objective Vital Signs: Vital Signs Temperature 98.2 F 05/23/17 06:00 Pulse Rate 72 05/23/17 06:00 Respiratory Rate 16 05/23/17 06:00 Blood Pressure 158/77 05/23/17 06:00 O2 Sat by Pulse Oximetry (%) 95 05/22/17 22:00 Cardiovascular: Yes: S1, S2 Respiratory: Yes: Regular, CTA Bilaterally Gastrointestinal: Yes: Normal Bowel Sounds, Soft Labs: CBC, BMP 05/23/17 06:05 05/23/17 06:05 INR, PTT INR 1.21 (0.82-1.09) H 05/20/17 06:00 Problem List - Problems (1) Acute renal failure Assessment/Plan: DIALYSIS PER RENAL CR 8 FOLLOW LABS Code(s): N17.9 - ACUTE KIDNEY FAILURE, UNSPECIFIED (2) Atrial fibrillation with RVR Assessment/Plan: OFF COUMADIN-- ON HEPARIN DRIP MONITOR RATE ON MEDS Code(s): I48.91 - UNSPECIFIED ATRIAL FIBRILLATION (3) HTN (hypertension) Assessment/Plan: CARDIZEM 240 HYDRALAZINE 25 TID MONITOR AND ADJUST Code(s): I10 - ESSENTIAL (PRIMARY) HYPERTENSION Qualifiers: Hypertension type: essential hypertension Qualified Code(s): I10 - Essential (primary) hypertension (4) Confusion Assessment/Plan: IMPROVING---RESOLVED MAYBE DUE TO RENAL CT NEGATIVE MRI OF HEAD--R/O CVA Code(s): R41.0 - DISORIENTATION, UNSPECIFIED (5) Hydronephrosis Assessment/Plan: UROLOGY CONSULT Code(s): N13.30 - UNSPECIFIED HYDRONEPHROSIS
[2017-05-23] MEDS ORDERED: HEPARIN NA (PORCINE) 5,000 UNITS/ML 1ML VIAL IVPUSH ONE (09:26)
[2017-05-23 09:41] LABS: CREATININE 10.1 mg/dL (0.7-1.3)
--- NOTE | 2017-05-23 09:43 | CON.GU ---
Consult Consult Specialty:: urology Referred by:: danni - History of Present Illness Chief Complaint: CHART REVIEWED. RENAL US REVEALED URETERAL HYDRONEPHROSIS. WILL NEED CYSTO B/L RETRO AND POSIBLE STENT PLACEMENT WHEN MED STABLE. 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: Yes: Alzheimer's, CVA, Dementia, Migraine, Multiple Sclerosis, Peripheral Neuropathy, Parkinson's, Seizure, Syncope, TIA, Vertigo, Other Cardio/Vascular: Yes: AFIB, Aneurysm, Aortic Insufficiency, Aortic Stenosis, CAD , CHF, Deep Vein Thrombosis, HTN, Hyperlipdemia, [place], Mitral Insufficiency, Mitral Stenosis, Murmur, Pulmonary Hypertension, Other Pulmonary: No: Asthma, Bronchitis, Cancer, COPD, O2 Dependent, Pneumonia, Previously Intubated, Pulmonary Embolus, Pulmonary Fibrosis, Sleep Apnea, Other Gastrointestinal: No: Ascites, Cancer, Constipation, Crohn's Disease, Diverticulitis, Diverticulosis, Esophageal Varices, Gastritis, GERD, GI Bleed, Hemorrhoids, Hiatal Hernia, Inflamatory Bowel Disease, Irritable Bowel Disease, Pancreatitis, Peptic Ulcer Disease, Ulcerative Colitis, Other Hepatobiliary: Yes: Cirrhosis, Cholelithiasis, Cholecystitis, Choledocholithiasis, Hepatitis A, Hepatitis B, Hepatitis C, Other Renal/: Yes: Renal Failure, Renal Inusuff, BPH, Cancer, Hematuria, Hemodialysis, Neurogenic Bladder, Renal Calculi, UTI, Other Infectious Disease: No: AIDS, C-Diff, Herpes Zoster, HIV, MRSA, STD's, Tuberculosis, VREF, Other Psych: No: Addictions, Anxiety, Bipolar, Depression, Panic, Psychosis, Schizophrenia, Other Musculoskeletal: No: Bursitis, Chronic low back pain, Hemiparesis, Hemiplegia, Osteoarthritis, Paraplegia, Other Rheumatology: No: Fibromyalgia, Gout, Lupus, Rheumatoid Arthritis, Sarcoidosis, Vasculitis, Other Endocrine: Yes: Diabetes Mellitus. 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, 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 Travel: No Home Medications - Allergies Allergies/Adverse Reactions: Allergies Allergy/AdvReac Type Severity Reaction Status Date / Time amoxicillin trihydrate Allergy Mild Verified 05/17/17 23:52 [From Augmentin] potassium clavulanate AdvReac Unknown Verified 05/17/17 23:52 [From Augmentin] - Home Medications Home Medications: Ambulatory Orders Atorvastatin Calcium DAILY 05/20/17 Digoxin DAILY 05/20/17 Diltiazem HCl [Cartia Xt] DAILY 05/20/17 Gemfibrozil DAILY 05/20/17 Metoprolol Tartrate BID 05/20/17 [place]-3 Acid Ethyl Esters [Lovaza] BID 05/20/17 Ranitidine [Zantac -] BID 05/20/17 Warfarin Sodium [Coumadin] DAILY 05/20/17 Physical Exam- Vital Signs: Vital Signs Temperature 98.2 F 05/23/17 06:00 Pulse Rate 72 05/23/17 06:00 Respiratory Rate 16 05/23/17 06:00 Blood Pressure 158/77 05/23/17 06:00 O2 Sat by Pulse Oximetry (%) 95 05/22/17 22:00 Labs: CBC, BMP 05/23/17 06:05 05/23/17 06:05 Imaging - Results Chest X-ray: Pending, Report Reviewed, Image Reviewed, Other X-ray: Pending, Report Reviewed, Image Reviewed, Other Cat Scan: Pending, Report Reviewed, Image Reviewed, Other Ultrasound: Pending, Report Reviewed, Image Reviewed, Other MRI: Pending, Report Reviewed, Image Reviewed, Other EKG: Pending, Report Reviewed, Image Reviewed, Other Other: Pending, Report Reviewed, Image Reviewed, Other Assessment/Plan URETERO HYDRONEPHROSIS WILL NEED CYSTO B/L RETRO AND POSSIBLE STENT PLACEMENT WHEN STABLE CT UROGRAM WOULD BE HELPFUL IF PT CAN TOLERATE
[2017-05-23] MEDS: NICOTINE 14 MG/24 HOURS TOPICAL PATCH TD SCH (09:48)
--- NOTE | 2017-05-23 10:15 | PN ---
Progress Note (short form) - Note Progress Note: Renal Follow up for SILAS Pt seen and examined at the bedside awake and alert has no acute complaints s/p HD on Saturday 750cc urine output in the last 24 hours Vital Signs Temperature 98.2 F 05/23/17 06:00 Pulse Rate 72 05/23/17 06:00 Respiratory Rate 16 05/23/17 06:00 Blood Pressure 158/77 05/23/17 06:00 O2 Sat by Pulse Oximetry (%) 95 05/22/17 22:00 Intake & Output 05/20/17 05/21/17 05/22/17 05/23/17 23:59 23:59 23:59 23:59 Intake Total 1220 1610 1121 Output Total 230 1000 750 Balance 990 610 371 Weight 258 lb 6.108 oz 254 lb 8 oz 252 lb 8 oz 260 lb 1 oz Gen: awake and alert, hard of hearing CVS: RRR Lungs: CTA, anterior exam Abd: soft NT/ND Ext: No edema, clubbing or cyanosis : no bladder distension, dutton catheter in place CBC, BMP 05/23/17 06:05 05/23/17 06:05 Laboratory Tests 05/23/17 06:05 Calcium 8.6 Phosphorus 5.5 H Magnesium 2.3 Albumin 2.7 L Current Medications Alprazolam (Xanax -) 0.25 mg PO Q8H PRN PRN Reason: ANXIETY Last Admin: 05/22/17 03:52 Dose: 0.25 mg Artificial Tears (Artificial Tears) 1 drop OU BID PRN PRN Reason: DRY EYES Last Admin: 05/21/17 21:21 Dose: 1 drop Chlorhexidine Gluconate (Hibiclens For Decolonization -) 1 applic TP HS [facility] Last Admin: 05/22/17 21:08 Dose: Not Given Diltiazem HCl (Cardizem Cd -) 240 mg PO DAILY [facility] Last Admin: 05/22/17 11:24 Dose: 240 mg Heparin Sodium (Porcine) (Heparin -) 1,000 unit IVPUSH PRN PRN PRN Reason: Heparin Heparin Sodium (Porcine) (Heparin -) 5,000 unit IVPUSH PRN PRN PRN Reason: Heparin Heparin Sodium (Porcine) (Heparin -) 500 unit IVPUSH ONCE ONE Stop: 05/23/17 09:27 Heparin Sodium (Porcine) (Heparin -) 500 unit IVPUSH Q1H [facility] Stop: 05/23/17 11:31 Hydralazine HCl (Apresoline -) 25 mg PO TID [facility] Last Admin: 05/23/17 06:07 Dose: 25 mg Heparin Sodium (Porcine) 25, (000 unit/ Sodium Chloride) 500 mls @ 20 mls/hr IV TITR BURKE; 1,000 UNIT/HR PRN Reason: Protocol Last Admin: 05/22/17 13:24 Dose: 20 mls/hr Nicotine (Nicoderm Patch -) 14 mg TD DAILY [facility] Last Admin: 05/23/17 09:48 Dose: 14 mg Nystatin (Nystatin Oral Suspension -) 500,000 units PO Q6HPO [facility] Last Admin: 05/23/17 06:07 Dose: 500,000 units Pantoprazole Sodium (Protonix -) 40 mg PO DAILY [facility] Last Admin: 05/22/17 11:32 Dose: 40 mg A/P 76 year old gentleman with PMhx of Afib on Coumadin, COPD, Hyperlipidemia, DM Type 2, Hypertension who presented with AMS and found to have BUN/Cr of 109/11 and K of 7.8. #Acute Renal failure with hyperkalemia Etiology of renal failure appears to be ATN BUN/Cr up trending in between dialysis sessions indicating that kidneys have not recovered yet will plan for dialysis today, will discuss permacath placement with vascular sx serologic work up: JEANNA, ANCA, Hepatitis, RPR all negative supporting likelihood etiology of SILAS is ATN will check HIV panel in AM Repeat Renal US showed worsening hydronephrosis on Right Kidney and mild hydronephrosois on left kidney, dutton is in place Urology consult noted, suggested CT urogram but given SILAS would avoid any IV contrast at this time Donta Carmona Problem List - Problems (1) Acute renal failure Code(s): N17.9 - ACUTE KIDNEY FAILURE, UNSPECIFIED (2) Atrial fibrillation with RVR Code(s): I48.91 - UNSPECIFIED ATRIAL FIBRILLATION (3) HTN (hypertension) Code(s): I10 - ESSENTIAL (PRIMARY) HYPERTENSION Qualifiers: Hypertension type: essential hypertension Qualified Code(s): I10 - Essential (primary) hypertension (4) Hyperkalemia Code(s): E87.5 - HYPERKALEMIA (5) Uremia Code(s): N19 - UNSPECIFIED KIDNEY FAILURE (6) Metabolic acidosis Code(s): E87.2 - ACIDOSIS (7) Hyperphosphatemia Code(s): E83.39 - OTHER DISORDERS OF PHOSPHORUS METABOLISM (8) Hyponatremia Code(s): E87.1 - HYPO-OSMOLALITY AND HYPONATREMIA
--- NOTE | 2017-05-23 11:47 | CONS ---
DATE OF CONSULTATION: 05/23/2017 HISTORY OF PRESENT ILLNESS: Patient is a 76-year-old male admitted via the emergency room on May 18, 2017, with chronic fibrillation on anticoagulation. Patient has long history of COPD and continues to smoke. He also has history of diverticulitis, dyslipidemia, diabetes, and hypertension. In the emergency room, the patient was confused. As per patients family, they said that the patient was lying in bed, lethargic, but responsive, and claiming that he was not feeling well. An ambulance was called, and the patient was sent to the emergency room. He was found to be in acute renal failure and underwent emergency dialysis. Unable to obtain an adequate history from the patient because of his condition, but he does have history of high blood pressure, dyslipidemia, COPD, and atrial fibrillation. He also has history of diverticulosis as well as diabetes. SOCIAL HISTORY: He currently smokes 1 pack of cigarettes a day. ALLERGIES: He is allergic to AMOXICILLIN and AUGMENTIN. VITAL SIGNS: In the emergency room, his temperature was 98.8, blood pressure 179/87. LABORATORY DATA: His BUN was 107 and creatinine was 12 in the emergency room, random glucose was 83. White count was 13.3, hemoglobin 14, hematocrit 41.4, platelets were 259. Patient also had an elevated potassium of 7.4. After dialysis, the patient was sent to the intensive care unit. This was called in because an ultrasound of his kidneys revealed bilateral hydroureteronephrosis. It was moderate on the right, and it has increased in severity since last examination. He has also got multiple small cysts in both kidneys. The bladder was empty because of a [place] catheter. IMPRESSION: At present is bilateral hydronephrosis in a 76-year-old male diabetic with a cardiac history. Must rule out prostatic obstruction. Must rule out obstructive uropathy secondary to stone or pelvic tumor. Will recommend a plain CT scan of the abdomen, kidneys, and pelvis to rule out any bulky pathology. Will follow with you. Patient will need a urologic workup when he is medically stable. This could be done as an outpatient. Will follow with you. LUKE ORTEGA M.D. [id number]
--- NOTE | 2017-05-23 11:59 | PN ---
Progress Note, Physician History of Present Illness: PULMONARY ALERT,NAD,ON DIALYSIS. - Current Medication List Current Medications: Active Medications Alprazolam (Xanax -) 0.25 mg PO Q8H PRN PRN Reason: ANXIETY Last Admin: 05/22/17 03:52 Dose: 0.25 mg Artificial Tears (Artificial Tears) 1 drop OU BID PRN PRN Reason: DRY EYES Last Admin: 05/21/17 21:21 Dose: 1 drop Chlorhexidine Gluconate (Hibiclens For Decolonization -) 1 applic TP HS [facility] Last Admin: 05/22/17 21:08 Dose: Not Given Diltiazem HCl (Cardizem Cd -) 240 mg PO DAILY [facility] Last Admin: 05/22/17 11:24 Dose: 240 mg Heparin Sodium (Porcine) (Heparin -) 1,000 unit IVPUSH PRN PRN PRN Reason: Heparin Heparin Sodium (Porcine) (Heparin -) 5,000 unit IVPUSH PRN PRN PRN Reason: Heparin Hydralazine HCl (Apresoline -) 25 mg PO TID [facility] Last Admin: 05/23/17 06:07 Dose: 25 mg Heparin Sodium (Porcine) 25, (000 unit/ Sodium Chloride) 500 mls @ 20 mls/hr IV TITR [facility]UR[facility]; 1,000 UNIT/HR PRN Reason: Protocol Last Admin: 05/22/17 13:24 Dose: 20 mls/hr Nicotine (Nicoderm Patch -) 14 mg TD DAILY [facility] Last Admin: 05/23/17 09:48 Dose: 14 mg Nystatin (Nystatin Oral Suspension -) 500,000 units PO Q6HPO [facility] Last Admin: 05/23/17 06:07 Dose: 500,000 units Pantoprazole Sodium (Protonix -) 40 mg PO DAILY [facility] Last Admin: 05/22/17 11:32 Dose: 40 mg - Objective Vital Signs: Vital Signs Temperature 98.8 F 05/23/17 10:45 Pulse Rate 61 05/23/17 11:20 Respiratory Rate 18 05/23/17 11:20 Blood Pressure 136/80 05/23/17 11:20 O2 Sat by Pulse Oximetry (%) 95 05/22/17 22:00 Constitutional: Yes: Well Nourished, Calm Eyes: Yes: WNL HENT: Yes: WNL Neck: Yes: WNL Cardiovascular: Yes: Pulse Irregular, S1, S2 Respiratory: Yes: Rales (BIBASIAL R RALES) Gastrointestinal: Yes: Normal Bowel Sounds, Soft Extremities: Yes: WNL Edema: No Labs: CBC, BMP 05/23/17 06:05 05/23/17 06:05 INR, PTT INR 1.21 (0.82-1.09) H 05/20/17 06:00 Problem List - Problems (1) Asbestos-induced pleural plaque Code(s): J92.0 - PLEURAL PLAQUE WITH PRESENCE OF ASBESTOS Assessment/Plan Problem List - Problems (1) Acute renal failure Assessment/Plan: Code(s): N17.9 - ACUTE KIDNEY FAILURE, UNSPECIFIED (2) Atrial fibrillation with RVR Assessment/Plan: Code(s): I48.91 - UNSPECIFIED ATRIAL FIBRILLATION (3) HTN (hypertension) Assessment/Plan: Code(s): I10 - ESSENTIAL (PRIMARY) HYPERTENSION (4) Confusion Assessment/Plan: Code(s): R41.0 - DISORIENTATION, UNSPECIFIED 5 ASBESTOS PLEURAL DISEASE PLAN: BP Meds O2 as needed Strict I&O IV Heparin BD TX HD per Renal DR VIEYRA
[2017-05-23] MEDS: HEPARIN NA (PORCINE) 5,000 UNITS/ML 1ML VIAL IVPUSH SCH ×3 (12:00→14:00)
[2017-05-23] MEDS: PANTOPRAZOLE 40 MG TABLET (FP) PO SCH (13:14)
[2017-05-23 13:32] LABS: HIV 1 & 2 AB NEGATIVE; HIV 1 AGp24 NEGATIVE
--- NOTE | 2017-05-23 20:18 | CONSULT ---
Consult - History of Present Illness History of Present Illness: 76 year old male with renal failure requiring dialysis. He is right handed. Permacath placement requested by renal. - History Source History Provided By: Medical Record - Past Medical History YOUTH MANAGER: Yes: Alzheimer's, CVA, Dementia, Migraine, Multiple Sclerosis, Peripheral Neuropathy, Parkinson's, Seizure, Syncope, TIA, Vertigo, Other Cardio/Vascular: Yes: AFIB, Aneurysm, Aortic Insufficiency, Aortic Stenosis, CAD , CHF, Deep Vein Thrombosis, HTN, Hyperlipdemia, FL, Mitral Insufficiency, Mitral Stenosis, Murmur, Pulmonary Hypertension, Other Pulmonary: No: Asthma, Bronchitis, Cancer, COPD, O2 Dependent, Pneumonia, Previously Intubated, Pulmonary Embolus, Pulmonary Fibrosis, Sleep Apnea, Other Gastrointestinal: No: Ascites, Cancer, Constipation, Crohn's Disease, Diverticulitis, Diverticulosis, Esophageal Varices, Gastritis, GERD, GI Bleed, Hemorrhoids, Hiatal Hernia, Inflamatory Bowel Disease, Irritable Bowel Disease, Pancreatitis, Peptic Ulcer Disease, Ulcerative Colitis, Other Hepatobiliary: Yes: Cirrhosis, Cholelithiasis, Cholecystitis, Choledocholithiasis, Hepatitis A, Hepatitis B, Hepatitis C, Other Renal/: Yes: Renal Failure, Renal Inusuff, BPH, Cancer, Hematuria, Hemodialysis, Neurogenic Bladder, Renal Calculi, UTI, Other Infectious Disease: No: AIDS, C-Diff, Herpes Zoster, HIV, MRSA, STD's, Tuberculosis, VREF, Other Psych: No: Addictions, Anxiety, Bipolar, Depression, Panic, Psychosis, Schizophrenia, Other Musculoskeletal: No: Bursitis, Chronic low back pain, Hemiparesis, Hemiplegia, Osteoarthritis, Paraplegia, Other Rheumatology: No: Fibromyalgia, Gout, Lupus, Rheumatoid Arthritis, Sarcoidosis, Vasculitis, Other Endocrine: Yes: Diabetes Mellitus. 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, 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 Travel: No Home Medications - Allergies Allergies/Adverse Reactions: Allergies Allergy/AdvReac Type Severity Reaction Status Date / Time amoxicillin trihydrate Allergy Mild Verified 05/17/17 23:52 [From Augmentin] potassium clavulanate AdvReac Unknown Verified 05/17/17 23:52 [From Augmentin] - Home Medications Home Medications: Ambulatory Orders Atorvastatin Calcium DAILY 05/20/17 Digoxin DAILY 05/20/17 Diltiazem HCl [Cartia Xt] DAILY 05/20/17 Gemfibrozil DAILY 05/20/17 Metoprolol Tartrate BID 05/20/17 Weston-3 Acid Ethyl Esters [Lovaza] BID 05/20/17 Ranitidine [Zantac -] BID 05/20/17 Warfarin Sodium [Coumadin] DAILY 05/20/17 Physical Exam Vital Signs: Vital Signs Temperature 97.5 F L 05/23/17 17:00 Pulse Rate 94 H 05/23/17 17:00 Respiratory Rate 18 05/23/17 17:00 Blood Pressure 141/70 05/23/17 17:00 O2 Sat by Pulse Oximetry (%) 96 05/23/17 10:00 Constitutional: Yes: No Distress Eyes: Yes: EOM Intact HENT: Yes: WNL Neck: Yes: Supple Cardiovascular: Yes: Regular Rate and Rhythm Respiratory: Yes: Regular Gastrointestinal: Yes: Soft Labs: CBC, BMP 05/23/17 06:05 05/23/17 06:05 Problem List - Problems (1) Acute renal failure Assessment/Plan: For placement of Permacath tomorrow afternoon. Procedure, risks and benefits discussed with patient. Code(s): N17.9 - ACUTE KIDNEY FAILURE, UNSPECIFIED
[2017-05-23] MEDS: ALPRAZolam 0.25 MG TABLET PO PRN (22:38)
[2017-05-24] MEDS: CHLORHEXIDINE GLUCONATE 4% CLEANSER FOR DECOLONIZATION TP SCH (03:47)
[2017-05-24] MEDS: NYSTATIN 500,000 UNITS/5 ML SUSPENSION PO SCH ×2 (03:47→05:49)
[2017-05-24] MEDS: hydrALAZINE HCL 25 MG TABLET (FP) PO SCH ×3 (05:49→22:51)
--- NOTE | 2017-05-24 07:48 | PN ---
Progress Note (short form) - Note Progress Note: Chief Complaint: Events noted, notes reviewed. Remains confused and disoriented , denies any chest pain or dyspnea, atrial fibrillation persists rate controlled History of Present Illness: Seen and examined on telemetry. Events noted, notes reviewed. Remains confused and disoriented, denies any chest pain or dyspnea, atrial fibrillation persists rate controlled Scheduled for Permacath placement today Remains on Heparin drip Echocardiography revealed normal LV size and systolic function with no significant valvular pathology - Current Medication List Current Medications Alprazolam (Xanax -) 0.25 mg PO Q8H PRN PRN Reason: ANXIETY Last Admin: 05/23/17 22:38 Dose: 0.25 mg Artificial Tears (Artificial Tears) 1 drop OU BID PRN PRN Reason: DRY EYES Last Admin: 05/21/17 21:21 Dose: 1 drop Chlorhexidine Gluconate (Hibiclens For Decolonization -) 1 applic TP HS [facility] Last Admin: 05/24/17 03:47 Dose: Not Given Diltiazem HCl (Cardizem Cd -) 240 mg PO DAILY [facility] Last Admin: 05/23/17 13:14 Dose: Not Given Heparin Sodium (Porcine) (Heparin -) 1,000 unit IVPUSH PRN PRN PRN Reason: Heparin Heparin Sodium (Porcine) (Heparin -) 5,000 unit IVPUSH PRN PRN PRN Reason: Heparin Hydralazine HCl (Apresoline -) 25 mg PO TID [facility] Last Admin: 05/24/17 05:49 Dose: 25 mg Heparin Sodium (Porcine) 25, (000 unit/ Sodium Chloride) 500 mls @ 20 mls/hr IV TITR [facility]; 1,000 UNIT/HR PRN Reason: Protocol Last Admin: 05/22/17 13:24 Dose: 20 mls/hr Nicotine (Nicoderm Patch -) 14 mg TD DAILY [facility] Last Admin: 05/23/17 09:48 Dose: 14 mg Nystatin (Nystatin Oral Suspension -) 500,000 units PO Q6HPO [facility] Last Admin: 05/24/17 05:49 Dose: Not Given Pantoprazole Sodium (Protonix -) 40 mg PO DAILY [facility] Last Admin: 05/23/17 13:14 Dose: Not Given Review of Systems Cardiovascular: As noted above Respiratory: denies: Cough or Sputum Production Gastrointestinal: denies: Nausea, Vomiting, Diarrhea, Constipation or Abdominal Discomfort Musculoskeletal: No Symptoms Reported Endocrine: No Symptoms Reported - Objective Vital Signs: Last Vital Signs Temp Pulse Resp BP Pulse Ox 97.9 F 82 18 157/77 95 05/24/17 05:49 05/24/17 05:49 05/24/17 05:49 05/24/17 05:49 05/23/17 22:00 Intake & Output 05/21/17 05/22/17 05/23/17 05/24/17 23:59 23:59 23:59 23:59 Intake Total 1610 1121 1060 340 Output Total 1000 750 50 10 Balance 665 751 8934 330 Weight 254 lb 8 oz 252 lb 8 oz 260 lb 1 oz 274 lb 1.6 oz Neck: Supple Negative JVD No Bruit Cardiovascular: S1 S2 Irregularly Irregular No Murmurs, Clicks or Gallops Respiratory: Diminished Breath sounds at the Bases Gastrointestinal: Soft Benign Normal Bowel Sounds Ext: No Edema Labs: CBC, BMP 05/23/17 06:05 CBC from this AM pending Assessment/Plan ASSESSMENT: 1. Acute renal failure currently on HD as per renal service for Permacath placement 2. CAD angina pectoris, stable 3. Diastolic LV dysfunction with class 0-I NYHA classification LV failure, euvolemic 4. Permanent atrial fibrillation on chronic A/C with Coumadin, transient supra- therapeutic INR, currently on Heparin 5. Post Digoxin toxicity 6. Hyperkalemia, resolved 7. Altered mental status/toxic metabolic encephalopathy, persistent 8. Hypertension 9. DM 10. COPD/emphysema PLAN: 1. Continue HD as per renal service, monitor urine output 2. Continue Cardizem CD 3. As outlined in prior notes if additional atrial fibrillation rate control is desired will add B-Blockers 4. Continue Hydralazine and may titrate dosage as needed 5. Continue Heparin and resume Coumadin once no further intervention is planned 6. As outlined in prior notes defer resumption of Digoxin therapy at this point 7. Follow CBC from this AM Caro Ordoñez MD
[2017-05-24 07:51] LABS: MCH 31.4 pg (25.7-33.7); MCHC 34.3 g/dl (32.0-35.9); MEAN CELL VOLUME 91.7 fl (80-96); MEAN PLT VOLUME 7.9 fl (7.5-11.1); PLATELET COUNT 186 K/MM3 (134-434); RDW 12.8 % (11.9-15.9); WHITE BLOOD COUNT 8.6 K/mm3 (4.0-10.0)
[2017-05-24] MEDS: HEPARIN - 25,000 UNIT in SODIUM CHLORIDE 495 ML IV SCH (08:51)
[2017-05-24] MEDS: NICOTINE 14 MG/24 HOURS TOPICAL PATCH TD SCH (09:04)
[2017-05-24] MEDS: PANTOPRAZOLE 40 MG TABLET (FP) PO SCH (09:04)
--- NOTE | 2017-05-24 11:06 | PN ---
Progress Note, Physician History of Present Illness: PULMONARY ALERT,NAD,-CP,SOB - Current Medication List Current Medications: Active Medications Artificial Tears (Artificial Tears) 1 drop OU BID PRN PRN Reason: DRY EYES Last Admin: 05/21/17 21:21 Dose: 1 drop Chlorhexidine Gluconate (Hibiclens For Decolonization -) 1 applic TP HS [facility] Last Admin: 05/24/17 03:47 Dose: Not Given Diltiazem HCl (Cardizem Cd -) 240 mg PO DAILY [facility] Last Admin: 05/24/17 09:04 Dose: 240 mg Heparin Sodium (Porcine) (Heparin -) 1,000 unit IVPUSH PRN PRN PRN Reason: Heparin Last Admin: 05/24/17 08:51 Dose: 1,000 unit Heparin Sodium (Porcine) (Heparin -) 5,000 unit IVPUSH PRN PRN PRN Reason: Heparin Hydralazine HCl (Apresoline -) 25 mg PO TID [facility] Last Admin: 05/24/17 05:49 Dose: 25 mg Heparin Sodium (Porcine) 25, (000 unit/ Sodium Chloride) 500 mls @ 20 mls/hr IV TITR [facility]URKE; 1,000 UNIT/HR PRN Reason: Protocol Last Admin: 05/24/17 08:51 Dose: 22 mls/hr Nicotine (Nicoderm Patch -) 14 mg TD DAILY [facility] Last Admin: 05/24/17 09:04 Dose: 14 mg Nystatin (Nystatin Oral Suspension -) 500,000 units PO Q6HPO [facility] Last Admin: 05/24/17 05:49 Dose: Not Given Pantoprazole Sodium (Protonix -) 40 mg PO DAILY [facility] Last Admin: 05/24/17 09:04 Dose: 40 mg - Objective Vital Signs: Vital Signs Temperature 97.9 F 05/24/17 05:49 Pulse Rate 82 05/24/17 05:49 Respiratory Rate 18 05/24/17 05:49 Blood Pressure 157/77 05/24/17 05:49 O2 Sat by Pulse Oximetry (%) 95 05/23/17 22:00 Constitutional: Yes: Well Nourished, Calm Eyes: Yes: WNL HENT: Yes: WNL Neck: Yes: WNL Cardiovascular: Yes: Pulse Irregular, S1, S2 Respiratory: Yes: Diminished Gastrointestinal: Yes: Normal Bowel Sounds, Soft Extremities: Yes: WNL Edema: No Labs: CBC, BMP 05/24/17 05:50 05/23/17 06:05 INR, PTT INR 1.21 (0.82-1.09) H 05/20/17 06:00 Problem List - Problems (1) Asbestos-induced pleural plaque Code(s): J92.0 - PLEURAL PLAQUE WITH PRESENCE OF ASBESTOS Assessment/Plan Problem List - Problems (1) Acute renal failure Assessment/Plan: Code(s): N17.9 - ACUTE KIDNEY FAILURE, UNSPECIFIED (2) Atrial fibrillation with RVR Assessment/Plan: Code(s): I48.91 - UNSPECIFIED ATRIAL FIBRILLATION (3) HTN (hypertension) Assessment/Plan: Code(s): I10 - ESSENTIAL (PRIMARY) HYPERTENSION (4) Confusion Assessment/Plan: Code(s): R41.0 - DISORIENTATION, UNSPECIFIED 5 ASBESTOS PLEURAL DISEASE PLAN: BP Meds O2 as needed Strict I&O IV Heparin BD TX HD per Renal DR VIEYRA
--- NOTE | 2017-05-24 12:46 | PN ---
Progress Note, Physician Chief Complaint: admitted for ARF daughter at bedside mental status much improved today per daughter on heparin drip awaiting perma cath placement - Current Medication List Current Medications: Active Medications Artificial Tears (Artificial Tears) 1 drop OU BID PRN PRN Reason: DRY EYES Last Admin: 05/21/17 21:21 Dose: 1 drop Chlorhexidine Gluconate (Hibiclens For Decolonization -) 1 applic TP HS [facility] Last Admin: 05/24/17 03:47 Dose: Not Given Diltiazem HCl (Cardizem Cd -) 240 mg PO DAILY [facility] Last Admin: 05/24/17 09:04 Dose: 240 mg Heparin Sodium (Porcine) (Heparin -) 1,000 unit IVPUSH PRN PRN PRN Reason: Heparin Last Admin: 05/24/17 08:51 Dose: 1,000 unit Heparin Sodium (Porcine) (Heparin -) 5,000 unit IVPUSH PRN PRN PRN Reason: Heparin Hydralazine HCl (Apresoline -) 25 mg PO TID [facility] Last Admin: 05/24/17 05:49 Dose: 25 mg Heparin Sodium (Porcine) 25, (000 unit/ Sodium Chloride) 500 mls @ 20 mls/hr IV TITR [facility]URKE; 1,000 UNIT/HR PRN Reason: Protocol Last Admin: 05/24/17 08:51 Dose: 22 mls/hr Nicotine (Nicoderm Patch -) 14 mg TD DAILY [facility] Last Admin: 05/24/17 09:04 Dose: 14 mg Nystatin (Nystatin Oral Suspension -) 500,000 units PO Q6HPO [facility] Last Admin: 05/24/17 05:49 Dose: Not Given Pantoprazole Sodium (Protonix -) 40 mg PO DAILY [facility] Last Admin: 05/24/17 09:04 Dose: 40 mg - Objective Vital Signs: Vital Signs Temperature 97.9 F 05/24/17 05:49 Pulse Rate 82 05/24/17 05:49 Respiratory Rate 18 05/24/17 05:49 Blood Pressure 157/77 05/24/17 05:49 O2 Sat by Pulse Oximetry (%) 95 05/23/17 22:00 Constitutional: Yes: Calm Neck: Yes: Trachea Midline Cardiovascular: Yes: Pulse Irregular, S1, S2 Respiratory: Yes: Diminished (at bases) Gastrointestinal: Yes: Normal Bowel Sounds, Soft Neurological: Yes: Alert, Oriented Labs: CBC, BMP 05/24/17 05:50 05/23/17 06:05 INR, PTT INR 1.21 (0.82-1.09) H 05/20/17 06:00 Problem List - Problems (1) Acute renal failure Assessment/Plan: NPO on heparin drip HD per renal permacath placment today Cr 10-11 range Code(s): N17.9 - ACUTE KIDNEY FAILURE, UNSPECIFIED (2) Atrial fibrillation with RVR Assessment/Plan: permanent afib on heparin drip for perma cath placement off couamdin rate control with cardizem Code(s): I48.91 - UNSPECIFIED ATRIAL FIBRILLATION (3) Hydronephrosis Assessment/Plan: ct scan noted with hydronephrosis and ill defined prostate mass urology FU Code(s): N13.30 - UNSPECIFIED HYDRONEPHROSIS (4) Diastolic CHF Assessment/Plan: hydralazine Code(s): I50.30 - UNSPECIFIED DIASTOLIC (CONGESTIVE) HEART FAILURE Assessment/Plan discussed with daughter in detail regarding the plan of care she wants SNF placment for STR when ready for DC asshe lives 8 hrs away the patient lives alone and has periods of confusion will need help
--- NOTE | 2017-05-24 13:39 | PN ---
Progress Note (short form) - Note Progress Note: Renal Follow up for SILAS Pt seen and examined at the bedside no acute complaints NPO for permacath placement today Vital Signs Temperature 98.2 F 05/24/17 10:00 Pulse Rate 94 H 05/24/17 10:00 Respiratory Rate 20 05/24/17 10:00 Blood Pressure 158/79 05/24/17 10:00 O2 Sat by Pulse Oximetry (%) 95 05/24/17 10:00 Intake & Output 05/21/17 05/22/17 05/23/17 05/24/17 23:59 23:59 23:59 23:59 Intake Total 1610 1121 1060 640 Output Total 1000 750 50 10 Balance 286 348 3196 630 Weight 254 lb 8 oz 252 lb 8 oz 260 lb 1 oz 274 lb 1.6 oz Gen: awake and alert, hard of hearing CVS: RRR Lungs: CTA, anterior exam Abd: soft NT/ND Ext: No edema, clubbing or cyanosis : no bladder distension, dutton catheter in place CBC, BMP 05/24/17 05:50 05/23/17 06:05 Laboratory Tests 05/23/17 06:05 Phosphorus 5.5 H Magnesium 2.3 Albumin 2.7 L Current Medications Artificial Tears (Artificial Tears) 1 drop OU BID PRN PRN Reason: DRY EYES Last Admin: 05/21/17 21:21 Dose: 1 drop Chlorhexidine Gluconate (Hibiclens For Decolonization -) 1 applic TP HS [facility] Last Admin: 05/24/17 03:47 Dose: Not Given Diltiazem HCl (Cardizem Cd -) 240 mg PO DAILY [facility] Last Admin: 05/24/17 09:04 Dose: 240 mg Heparin Sodium (Porcine) (Heparin -) 1,000 unit IVPUSH PRN PRN PRN Reason: Heparin Last Admin: 05/24/17 08:51 Dose: 1,000 unit Heparin Sodium (Porcine) (Heparin -) 5,000 unit IVPUSH PRN PRN PRN Reason: Heparin Hydralazine HCl (Apresoline -) 25 mg PO TID [facility] Last Admin: 05/24/17 05:49 Dose: 25 mg Heparin Sodium (Porcine) 25, (000 unit/ Sodium Chloride) 500 mls @ 20 mls/hr IV TITR [facility]; 1,000 UNIT/HR PRN Reason: Protocol Last Admin: 05/24/17 08:51 Dose: 22 mls/hr Nicotine (Nicoderm Patch -) 14 mg TD DAILY [facility] Last Admin: 05/24/17 09:04 Dose: 14 mg Nystatin (Nystatin Oral Suspension -) 500,000 units PO Q6HPO [facility] Last Admin: 05/24/17 05:49 Dose: Not Given Pantoprazole Sodium (Protonix -) 40 mg PO DAILY [facility] Last Admin: 05/24/17 09:04 Dose: 40 mg A/P 76 year old gentleman with PMhx of Afib on Coumadin, COPD, Hyperlipidemia, DM Type 2, Hypertension who presented with AMS and found to have BUN/Cr of 109/11 and K of 7.8. #Acute Renal failure with hyperkalemia Etiology of renal failure appears to be ATN pt without significant improvement in renal function to date, for permacath placement today next dialysis for tomorrow dose all meds for intermittent HD no Dieudonne/ARB, NSAIDs, or IV contrast as pt is in SILAS and expect recovery of renal function #B/L Hydronephrosis CT of abd shows a mass, likely prostate causing obstruction of the distal ureter will likely need urologic intervention ( stenting?) will need tissue biopsy of mass as well Case discussed with primary Donta Carmona Problem List - Problems (1) Acute renal failure Code(s): N17.9 - ACUTE KIDNEY FAILURE, UNSPECIFIED (2) Atrial fibrillation with RVR Code(s): I48.91 - UNSPECIFIED ATRIAL FIBRILLATION (3) HTN (hypertension) Code(s): I10 - ESSENTIAL (PRIMARY) HYPERTENSION Qualifiers: Hypertension type: essential hypertension Qualified Code(s): I10 - Essential (primary) hypertension (4) Hyperkalemia Code(s): E87.5 - HYPERKALEMIA (5) Uremia Code(s): N19 - UNSPECIFIED KIDNEY FAILURE (6) Metabolic acidosis Code(s): E87.2 - ACIDOSIS (7) Hyperphosphatemia Code(s): E83.39 - OTHER DISORDERS OF PHOSPHORUS METABOLISM (8) Hyponatremia Code(s): E87.1 - HYPO-OSMOLALITY AND HYPONATREMIA
[2017-05-24] MEDS ORDERED: LIDOCAINE HCL 1%, 10 MG/ML (20ML VIAL) ONE ×2 (14:10→17:58)
[2017-05-24] MEDS ORDERED: MIDAZOLAM HCL 2 MG/2 ML SINGLE DOSE VIAL ONE ×2 (17:26)
[2017-05-24] MEDS ORDERED: LIDOCAINE HCL 1%, 10 MG/ML (50 mL VIAL) IJ ONE ×2 (17:30)
[2017-05-24] MEDS ORDERED: ceFAZolin SODIUM 1 GM VIAL ONE (17:35)
[2017-05-24] MEDS ORDERED: ceFAZolin SODIUM 1 GM VIAL IVPB ONE ×3 (17:36)
[2017-05-24] MEDS ORDERED: LABETALOL HCL 5 MG/1 ML (100MG/20 ML VIAL) ONE (18:04)
--- NOTE | 2017-05-24 18:21 | OP ---
Operative Note - Note: Operative Date: 05/24/17 Pre-Operative Diagnosis: ESRD Operation: Placement of Permacath. Venogram SVC Findings: Occluded Right IJ. Patent subclavian and SVC Post-Operative Diagnosis: Same as Pre-op Surgeon: Douglas Ogden Anesthesiologist/ENTRY SPECIALIST: Braden Rodriguez Anesthesia: Fractional
[2017-05-24] MEDS ORDERED: ONDANSETRON 4 MG/2 ML VIAL IVPUSH PRN (18:25)
[2017-05-24] MEDS ORDERED: ARTIFICIAL TEARS (POLYVINYL ALCOHOL 1.4%) OPTH DROPS OU PRN (18:36)
[2017-05-24] MEDS ORDERED: HEPARIN NA (PORCINE) 5,000 UNITS/ML 1ML VIAL IVPUSH PRN ×3 (18:36)
[2017-05-24] MEDS ORDERED: HEPARIN - 25,000 UNIT in SODIUM CHLORIDE 495 ML IV SCH (18:36)
[2017-05-24 21:04] LABS: MCH 31.3 pg (25.7-33.7); MCHC 33.8 g/dl (32.0-35.9); MEAN CELL VOLUME 92.5 fl (80-96); MEAN PLT VOLUME 8.3 fl (7.5-11.1); PLATELET COUNT 207 K/MM3 (134-434); RDW 12.9 % (11.9-15.9); WHITE BLOOD COUNT 9.4 K/mm3 (4.0-10.0)
[2017-05-24] MEDS ORDERED: CHLORHEXIDINE GLUCONATE 4% CLEANSER FOR DECOLONIZATION TP SCH (22:00)
[2017-05-25] MEDS: NYSTATIN 500,000 UNITS/5 ML SUSPENSION PO SCH ×4 (00:08→18:23)
[2017-05-25] MEDS: HEPARIN - 25,000 UNIT in SODIUM CHLORIDE 495 ML IV SCH ×3 (00:26→18:23)
[2017-05-25] MEDS ORDERED: HEPARIN NA (PORCINE) 5,000 UNITS/ML 1ML VIAL IVPUSH ONE (06:00)
[2017-05-25] MEDS: hydrALAZINE HCL 25 MG TABLET (FP) PO SCH ×3 (06:52→21:25)
[2017-05-25 07:36] LABS: MCH 31.3 pg (25.7-33.7); MEAN CELL VOLUME 91.9 fl (80-96); MEAN PLT VOLUME 8.1 fl (7.5-11.1); PLATELET COUNT 181 K/MM3 (134-434); RDW 12.9 % (11.9-15.9); WHITE BLOOD COUNT 9.4 K/mm3 (4.0-10.0)
[2017-05-25] MEDS: NICOTINE 14 MG/24 HOURS TOPICAL PATCH TD SCH (09:23)
--- NOTE | 2017-05-25 09:31 | OP ---
DATE OF OPERATION: 05/24/2017 SURGEON: Jordan Lozoya MD PROCEDURE: Placement of Perm-A-Cath and venogram of the superior vena cava. PREOPERATIVE DIAGNOSIS: End-stage renal disease. POSTOPERATIVE DIAGNOSIS: End-stage renal disease. ANESTHESIA: Fractional. ANESTHESIOLOGIST: Braden Rodriguez DO FINDINGS: The right internal jugular vein was occluded. The subclavian vein was patent with normal superior vena cava. OPERATIVE PROCEDURE: Following routine patient identification with side and site verification, intravenous sedation was established. The right neck and chest were prepped with ChloraPrep. Realtime duplex imaging was used to evaluate the right neck. There was no jugular vein identified alongside the carotid artery. A more medial large venous structure was identified. Xylocaine 1% was infiltrated in the neck and a micropuncture needle was used to cannulate this vein under direct ultrasound guidance. A fine wire was then passed through the needle but would not pass proximally towards the heart. An inner cannula from the 5-Arabic catheter was passed over the wire and venography was performed with dilute contrast which showed that this was a branch of the jugular vein with no direct connection to the internal jugular vein. The subclavian vein was clearly seen and was felt to be a better access vessel. Therefore, additional Xylocaine was infiltrated on the lateral aspect of the chest wall beneath the clavicle. Using duplex imaging, the subclavian vein was cannulated with the micropuncture needle and then the wire was passed proximally into the right atrium. The needle was exchanged for a 5-Arabic catheter and then a J-tip wire was passed through the catheter, through the right atrium, and into the inferior vena cava. The tract around the wire was then dilated and the introducer was placed over the wire into the superior vena cava. Additional Xylocaine was infiltrated on the lower chest wall and a stab wound made. The Perm-A-Cath was passed with a tunneler between the 2 incisions. The end of the Perm-A-Cath was then passed through the introducer and positioned in the right atrium. The introducer was peeled away. Each limb was aspirated for blood and the catheter was then flushed with saline and heparin solution. It was sutured to the skin at the exit site with 3-0 nylon. The clavicular incision was closed with a subcuticular suture of 3-0 Vicryl. Sterile dressings were applied. The patient was taken to the recovery room for a chest x-ray. JORDAN LOZOYA M.D. [id number]
--- NOTE | 2017-05-25 10:11 | PN ---
Progress Note (short form) - Note Progress Note: Chief Complaint: Events noted, notes reviewed. Remains confused and disoriented although improved, denies any chest pain or dyspnea, atrial fibrillation persists rate controlled, post Permacath placement yesterday History of Present Illness: Seen and examined on telemetry. Events noted, notes reviewed. Remains confused and disoriented although improved, denies any chest pain or dyspnea, atrial fibrillation persists rate controlled, post Permacath placement yesterday HD in progress Remains on Heparin drip Echocardiography revealed normal LV size and systolic function with no significant valvular pathology - Current Medication List Current Medications Artificial Tears (Artificial Tears) 1 drop OU BID PRN PRN Reason: DRY EYES Diltiazem HCl (Cardizem Cd -) 240 mg PO DAILY [facility] Fentanyl (Sublimaze Injection -) 25 mcg IVPUSH [id number] PRN PRN Reason: PAIN Stop: 05/27/17 18:26 Heparin Sodium (Porcine) (Heparin -) 1,000 unit IVPUSH ONCE ONE Stop: 05/25/17 06:01 Heparin Sodium (Porcine) (Heparin -) 1,000 unit IVPUSH PRN PRN PRN Reason: Heparin Heparin Sodium (Porcine) (Heparin -) 5,000 unit IVPUSH PRN PRN PRN Reason: Heparin Last Admin: 05/25/17 09:18 Dose: 5,000 unit Hydralazine HCl (Apresoline -) 25 mg PO TID [facility] Last Admin: 05/25/17 06:52 Dose: 25 mg Heparin Sodium (Porcine) 25, (000 unit/ Sodium Chloride) 500 mls @ 20 mls/hr IV TITR [facility]; 1,000 UNIT/HR PRN Reason: Protocol Last Admin: 05/25/17 09:18 Dose: 23 mls/hr Nicotine (Nicoderm Patch -) 14 mg TD DAILY [facility] Last Admin: 05/25/17 09:23 Dose: 14 mg Nystatin (Nystatin Oral Suspension -) 500,000 units PO Q6HPO [facility] Last Admin: 05/25/17 06:52 Dose: 500,000 units Pantoprazole Sodium (Protonix -) 40 mg PO DAILY [facility] Review of Systems Cardiovascular: As noted above Respiratory: denies: Cough or Sputum Production Gastrointestinal: denies: Nausea, Vomiting, Diarrhea, Constipation or Abdominal Discomfort Musculoskeletal: No Symptoms Reported Endocrine: No Symptoms Reported - Objective Vital Signs: Last Vital Signs Temp Pulse Resp BP Pulse Ox 97.6 F 89 18 132/69 95 05/25/17 08:25 05/25/17 09:00 05/25/17 09:00 05/25/17 09:00 05/25/17 06:00 Intake & Output 05/22/17 05/23/17 05/24/17 05/25/17 23:59 23:59 23:59 23:59 Intake Total 1121 1060 1206 372 Output Total 750 50 60 100 Balance 371 1010 1146 272 Weight 252 lb 8 oz 260 lb 1 oz 274 lb 1.6 oz 247 lb 9.6 oz Neck: Supple Negative JVD No Bruit Cardiovascular: S1 S2 Irregularly Irregular No Murmurs, Clicks or Gallops Respiratory: Diminished Breath sounds at the Bases Gastrointestinal: Soft Benign Normal Bowel Sounds Ext: No Edema Labs: CBC, BMP 05/25/17 05:35 BMP pending from this AM Assessment/Plan ASSESSMENT: 1. Acute renal failure currently on HD as per renal service post Permacath placement 2. CAD angina pectoris, stable 3. Diastolic LV dysfunction with class 0-I NYHA classification LV congestive heart failure, euvolemic 4. Permanent atrial fibrillation on chronic A/C with Coumadin, transient supra- therapeutic INR, currently on Heparin 5. Post Digoxin toxicity 6. Hyperkalemia, resolved 7. Altered mental status/toxic metabolic encephalopathy, persistent 8. Hypertension 9. 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 Hydronephrosis for intervention PLAN: 1. Continue HD as per renal service, monitor urine output 2. Continue Cardizem CD 3. As outlined in prior notes if additional atrial fibrillation rate control is desired add B-Blockers 4. Continue Hydralazine 5. Continue Heparin and resume Coumadin once no further intervention is planned 6. As outlined in prior notes defer resumption of Digoxin therapy at this point 7. Follow BMP from this AM 8. Plan to proceed with cystoscopy and possible stenting for management of the above noted hydronephrosis Caro Ordoñez MD
[2017-05-25 10:24] LABS: ALBUMIN 2.7 g/dl (3.4-5.0); ANION GAP 11 (8-16); CALCIUM 8.7 mg/dL (8.5-10.1); CO2 27 mmol/L (21-32); GLUCOSE,RANDOM 110 mg/dL (74-106)
[2017-05-25 10:32] LABS: ALK PHOS 63 U/L (45-117); BILIRUBIN,TOTAL 0.5 mg/dL (0.2-1.0); PHOSPHOROUS 5.3 mg/dL (2.5-4.9); SGOT/AST 54 U/L (15-37); SGPT/ALT 73 U/L (12-78); TOT PROT 5.8 g/dl (6.4-8.2)
[2017-05-25 10:42] LABS: CREATININE 9.7 mg/dL (0.7-1.3)
--- NOTE | 2017-05-25 11:01 | PN ---
Progress Note, Physician Chief Complaint: Acute Renal Failure History of Present Illness: Patient comfortable in bed, NAD, A&O X 3 on Hemodialysis - Current Medication List Current Medications: Active Medications Artificial Tears (Artificial Tears) 1 drop OU BID PRN PRN Reason: DRY EYES Diltiazem HCl (Cardizem Cd -) 240 mg PO DAILY [facility] Fentanyl (Sublimaze Injection -) 25 mcg IVPUSH [id number] PRN PRN Reason: PAIN Stop: 05/27/17 18:26 Heparin Sodium (Porcine) (Heparin -) 1,000 unit IVPUSH ONCE ONE Stop: 05/25/17 06:01 Heparin Sodium (Porcine) (Heparin -) 1,000 unit IVPUSH PRN PRN PRN Reason: Heparin Heparin Sodium (Porcine) (Heparin -) 5,000 unit IVPUSH PRN PRN PRN Reason: Heparin Last Admin: 05/25/17 09:18 Dose: 5,000 unit Hydralazine HCl (Apresoline -) 25 mg PO TID [facility] Last Admin: 05/25/17 06:52 Dose: 25 mg Heparin Sodium (Porcine) 25, (000 unit/ Sodium Chloride) 500 mls @ 20 mls/hr IV TITR [facility]; 1,000 UNIT/HR PRN Reason: Protocol Last Admin: 05/25/17 09:18 Dose: 23 mls/hr Nicotine (Nicoderm Patch -) 14 mg TD DAILY [facility] Last Admin: 05/25/17 09:23 Dose: 14 mg Nystatin (Nystatin Oral Suspension -) 500,000 units PO Q6HPO [facility] Last Admin: 05/25/17 06:52 Dose: 500,000 units Pantoprazole Sodium (Protonix -) 40 mg PO DAILY [facility] - Objective Vital Signs: Vital Signs Temperature 97.6 F 05/25/17 08:25 Pulse Rate 54 L 05/25/17 10:30 Respiratory Rate 18 05/25/17 10:30 Blood Pressure 157/74 05/25/17 10:30 O2 Sat by Pulse Oximetry (%) 95 05/25/17 06:00 Constitutional: Yes: No Distress, Calm HENT: Yes: Atraumatic, Normocephalic Neck: Yes: Supple, Trachea Midline Cardiovascular: Yes: S1, S2 Respiratory: Yes: Regular, CTA Bilaterally Gastrointestinal: Yes: Normal Bowel Sounds, Soft Edema: No Peripheral Pulses WNL: Yes Labs: CBC, BMP 05/25/17 05:35 05/25/17 08:40 INR, PTT INR 1.21 (0.82-1.09) H 05/20/17 06:00 Problem List - Problems (1) Acute renal failure Code(s): N17.9 - ACUTE KIDNEY FAILURE, UNSPECIFIED (2) Hydronephrosis Code(s): N13.30 - UNSPECIFIED HYDRONEPHROSIS Assessment/Plan Problem List - Problems (1) Acute renal failure Assessment/Plan: S/P permcath placement Operative Date: 05/24/17 Pre-Operative Diagnosis: ESRD Operation: Placement of Permacath. Venogram SVC Findings: Occluded Right IJ. Patent subclavian and SVC on heparin drip on going HD monitor kidney functions Laboratory Tests 05/21/17 05/22/17 05/22/17 05:15 06:00 17:31 BUN 78 H D 44 H D 51 H Creatinine 8.4 H* D 9.2 H* 05/23/17 05/25/17 06:05 08:40 BUN 56 H 47 H Creatinine 10.1 H* 9.7 H* Code(s): N17.9 - ACUTE KIDNEY FAILURE, UNSPECIFIED (2) Atrial fibrillation with RVR Assessment/Plan: permanent afib on heparin drip pending urology eval off couamdin rate control with cardizem Code(s): I48.91 - UNSPECIFIED ATRIAL FIBRILLATION (3) Hydronephrosis Assessment/Plan: ct scan noted with hydronephrosis and ill defined prostate mass urology FU Code(s): N13.30 - UNSPECIFIED HYDRONEPHROSIS (4) Diastolic CHF Assessment/Plan: HD hydralazine no evidence of HF Code(s): I50.30 - UNSPECIFIED DIASTOLIC (CONGESTIVE) HEART FAILURE
[2017-05-25] MEDS: PANTOPRAZOLE 40 MG TABLET (FP) PO SCH (12:41)
--- NOTE | 2017-05-25 13:31 | PN ---
Progress Note, Physician Chief Complaint: The patient seen in his bed. Daughter Michelle by his side. Had uneventful HD earlier using the Right IJ Permacath. Minimal urine output only. He is awake, alert. Seems comfortable. History of Present Illness: This is a 76 year old gentleman with PMhx of Afib on Coumadin, COPD, Hyperlipidemia, DM Type 2, Hypertension who presented with altered mentation. Found to have BUN/Cr of 109/11 and K of 7.8. Pt with baseline Cr of 0.8 11/2015. No hx of CKD . Denies any pains. - Current Medication List Current Medications: Active Medications Artificial Tears (Artificial Tears) 1 drop OU BID PRN PRN Reason: DRY EYES Diltiazem HCl (Cardizem Cd -) 240 mg PO DAILY [facility] Last Admin: 05/25/17 12:41 Dose: 240 mg Fentanyl (Sublimaze Injection -) 25 mcg IVPUSH [id number] PRN PRN Reason: PAIN Stop: 05/27/17 18:26 Heparin Sodium (Porcine) (Heparin -) 1,000 unit IVPUSH ONCE ONE Stop: 05/25/17 06:01 Heparin Sodium (Porcine) (Heparin -) 1,000 unit IVPUSH PRN PRN PRN Reason: Heparin Heparin Sodium (Porcine) (Heparin -) 5,000 unit IVPUSH PRN PRN PRN Reason: Heparin Last Admin: 05/25/17 09:18 Dose: 5,000 unit Hydralazine HCl (Apresoline -) 25 mg PO TID [facility] Last Admin: 05/25/17 06:52 Dose: 25 mg Heparin Sodium (Porcine) 25, (000 unit/ Sodium Chloride) 500 mls @ 20 mls/hr IV TITR [facility]; 1,000 UNIT/HR PRN Reason: Protocol Last Admin: 05/25/17 09:18 Dose: 23 mls/hr Nicotine (Nicoderm Patch -) 14 mg TD DAILY [facility] Last Admin: 05/25/17 09:23 Dose: 14 mg Nystatin (Nystatin Oral Suspension -) 500,000 units PO Q6HPO [facility] Last Admin: 05/25/17 12:41 Dose: 500,000 units Pantoprazole Sodium (Protonix -) 40 mg PO DAILY [facility] Last Admin: 05/25/17 12:41 Dose: 40 mg - Objective Vital Signs: Vital Signs Temperature 98.1 F 05/25/17 10:00 Pulse Rate 76 05/25/17 12:10 Respiratory Rate 18 05/25/17 12:10 Blood Pressure 168/89 05/25/17 12:10 O2 Sat by Pulse Oximetry (%) 95 05/25/17 10:00 Constitutional: Yes: Well Nourished, Calm Eyes: Yes: Conjunctiva Clear HENT: Yes: Normocephalic Neck: Yes: Trachea Midline Cardiovascular: Yes: Regular Rate and Rhythm, S1, S2 Respiratory: Yes: Regular, Diminished, Poor Air Entry Gastrointestinal: Yes: Normal Bowel Sounds, Soft Genitourinary: Yes: [place] Present, Oliguria. No: CVA Tenderness - Left, CVA Tenderness - Right, Hematuria Edema: No Neurological: Yes: Alert Labs: CBC, BMP 05/25/17 05:35 05/25/17 08:40 INR, PTT INR 1.21 (0.82-1.09) H 05/20/17 06:00 Problem List - Problems (1) Acute renal failure Code(s): N17.9 - ACUTE KIDNEY FAILURE, UNSPECIFIED (2) Atrial fibrillation with RVR Code(s): I48.91 - UNSPECIFIED ATRIAL FIBRILLATION (3) Confusion Code(s): R41.0 - DISORIENTATION, UNSPECIFIED (4) HTN (hypertension) Code(s): I10 - ESSENTIAL (PRIMARY) HYPERTENSION Qualifiers: Hypertension type: essential hypertension Qualified Code(s): I10 - Essential (primary) hypertension (5) Hydronephrosis Code(s): N13.30 - UNSPECIFIED HYDRONEPHROSIS (6) Hyperkalemia Code(s): E87.5 - HYPERKALEMIA (7) Hyperphosphatemia Code(s): E83.39 - OTHER DISORDERS OF PHOSPHORUS METABOLISM (8) Metabolic acidosis Code(s): E87.2 - ACIDOSIS (9) Uremia Code(s): N19 - UNSPECIFIED KIDNEY FAILURE (10) Diabetes Code(s): E11.9 - TYPE 2 DIABETES MELLITUS WITHOUT COMPLICATIONS Qualifiers: Diabetes mellitus type: type 2 Diabetes mellitus complication status: without complication Qualified Code(s): E11.9 - Type 2 diabetes mellitus without complications Assessment/Plan This is a 76 year old gentleman with PMhx of Afib on Coumadin, COPD, Hyperlipidemia, DM Type 2, Hypertension who presented with AMS and found to have BUN/Cr of 109/11 and K of 7.8. The patient is in Acute Renal failure, the etiology of the same remains obscure. There is Bilateral Hydronephrosis, and this might be part of the reason for the SILAS, but even after placement of the [place] catheter there is no sign of Renal recovery. 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 The patient had placement of a Permacath, and it is expected that he will require many dialysis sessions before any appreciable degree of Renal recovery occurs. Discussed in detail with the daughter, and if Renal Recovery does not occur, a Renal Biopsy may be justified. Will avoid all possible Nephrotoxins at this juncture. Deysi Patel MD
--- NOTE | 2017-05-25 14:17 | PN ---
Progress Note (short form) - Note Progress Note: Reports that he feels overall better. Denies CP or SOB. No acute events overnight. Intake & Output 05/22/17 05/23/17 05/24/17 05/25/17 23:59 23:59 23:59 23:59 Intake Total 1121 1060 1206 372 Output Total 750 50 60 100 Balance 371 1010 1146 272 Weight 252 lb 8 oz 260 lb 1 oz 274 lb 1.6 oz 247 lb 9.6 oz Last Vital Signs Temp Pulse Resp BP Pulse Ox 98.1 F 76 18 168/89 95 05/25/17 10:00 05/25/17 12:10 05/25/17 12:10 05/25/17 12:10 05/25/17 10:00 Active Medications Artificial Tears (Artificial Tears) 1 drop OU BID PRN PRN Reason: DRY EYES Diltiazem HCl (Cardizem Cd -) 240 mg PO DAILY [facility] Last Admin: 05/25/17 12:41 Dose: 240 mg Fentanyl (Sublimaze Injection -) 25 mcg IVPUSH [id number] PRN PRN Reason: PAIN Stop: 05/27/17 18:26 Heparin Sodium (Porcine) (Heparin -) 1,000 unit IVPUSH ONCE ONE Stop: 05/25/17 06:01 Heparin Sodium (Porcine) (Heparin -) 1,000 unit IVPUSH PRN PRN PRN Reason: Heparin Heparin Sodium (Porcine) (Heparin -) 5,000 unit IVPUSH PRN PRN PRN Reason: Heparin Last Admin: 05/25/17 09:18 Dose: 5,000 unit Hydralazine HCl (Apresoline -) 25 mg PO TID [facility] Last Admin: 05/25/17 06:52 Dose: 25 mg Heparin Sodium (Porcine) 25, (000 unit/ Sodium Chloride) 500 mls @ 20 mls/hr IV TITR [facility]; 1,000 UNIT/HR PRN Reason: Protocol Last Admin: 05/25/17 09:18 Dose: 23 mls/hr Nicotine (Nicoderm Patch -) 14 mg TD DAILY [facility] Last Admin: 05/25/17 09:23 Dose: 14 mg Nystatin (Nystatin Oral Suspension -) 500,000 units PO Q6HPO [facility] Last Admin: 05/25/17 12:41 Dose: 500,000 units Pantoprazole Sodium (Protonix -) 40 mg PO DAILY [facility] Last Admin: 05/25/17 12:41 Dose: 40 mg Polyethylene Glycol (Miralax (For Daily Use) -) 17 gm PO DAILY [facility] GENERAL: awake, alert, less confused HEAD: Normal with no signs of trauma. EYES: EOM intact, no pallor or icterus. ENT: Ears normal, moist mucous membranes. NECK: Trachea midline, full range of motion, supple. LUNGS: Few scattered rhonchi, no wheeze HEART: Irregularly irregular rate and rhythm, (+) ESM ABDOMEN: Soft, nontender, nondistended, normoactive bowel sounds, no guarding, no rebound, no hepatosplenomegaly, no masses. EXTREMITIES: 2+ pulses, warm, well-perfused, no edema. NEUROLOGICAL: Non-focal SKIN: Warm, dry, normal turgor, no rashes or lesions noted Laboratory Results - last 24 hr 05/24/17 05/24/17 05/24/17 14:00 20:15 20:15 WBC 9.4 RBC 4.17 Hgb 13.1 Hct 38.6 MCV 92.5 MCH 31.3 MCHC 33.8 RDW 12.9 Plt Count 207 MPV 8.3 PTT (Actin FS) 41.0 H 32.9 Sodium Potassium Chloride Carbon Dioxide Anion Gap BUN Creatinine Creat Clearance w eGFR Random Glucose Calcium Phosphorus Total Bilirubin AST ALT Alkaline Phosphatase Total Protein Albumin 05/25/17 05/25/17 05/25/17 05:35 05:35 08:40 WBC 9.4 RBC 3.92 L Hgb 12.3 Hct 36.1 MCV 91.9 MCH 31.3 MCHC 34.0 RDW 12.9 Plt Count 181 MPV 8.1 PTT (Actin FS) 39.5 H Sodium 141 Potassium 4.5 Chloride 103 Carbon Dioxide 27 Anion Gap 11 BUN 47 H Creatinine 9.7 H* Creat Clearance w eGFR 5.31 Random Glucose 110 H D Calcium 8.7 Phosphorus 5.3 H Total Bilirubin 0.5 AST 54 H D ALT 73 D Alkaline Phosphatase 63 Total Protein 5.8 L Albumin 2.7 L Problem List - Problems (1) Acute renal failure Assessment/Plan: Code(s): N17.9 - ACUTE KIDNEY FAILURE, UNSPECIFIED (2) Atrial fibrillation with RVR Assessment/Plan: Code(s): I48.91 - UNSPECIFIED ATRIAL FIBRILLATION (3) HTN (hypertension) Assessment/Plan: Code(s): I10 - ESSENTIAL (PRIMARY) HYPERTENSION (4) Confusion Assessment/Plan: Code(s): R41.0 - DISORIENTATION, UNSPECIFIED PLAN: HD per Renal PO as tolerated O2 as needed Aspiration precautions AC BD TX Dr Zepeda
[2017-05-25] MEDS: POLYETHYLENE GLYCOL 3350 119 GM BTL PO SCH (14:52)
[2017-05-25 15:54] LABS: INR 1.24 (0.82-1.09); PROTHROMBIN TIME (PATIENT) 13.7 SEC (9.98-11.88)
[2017-05-26] MEDS: NYSTATIN 500,000 UNITS/5 ML SUSPENSION PO SCH ×4 (01:06→18:10)
[2017-05-26] MEDS: HEPARIN - 25,000 UNIT in SODIUM CHLORIDE 495 ML IV SCH ×2 (06:06→15:40)
[2017-05-26] MEDS: hydrALAZINE HCL 25 MG TABLET (FP) PO SCH ×3 (06:08→21:14)
[2017-05-26 07:28] LABS: BASOPHIL 0.9 % (0-2.0); EOSINOPHIL 5.8 % (0-4.5); MCH 31.6 pg (25.7-33.7); MCHC 34.1 g/dl (32.0-35.9); MEAN CELL VOLUME 92.6 fl (80-96); MEAN PLT VOLUME 8.4 fl (7.5-11.1); NEUTROPHILS 66.3 % (42.8-82.8); PLATELET COUNT 177 K/MM3 (134-434); RDW 12.9 % (11.9-15.9); WHITE BLOOD COUNT 9.4 K/mm3 (4.0-10.0)
[2017-05-26 07:50] LABS: CALCIUM 8.5 mg/dL (8.5-10.1)
[2017-05-26 08:01] LABS: ALBUMIN 2.7 g/dl (3.4-5.0); ALK PHOS 64 U/L (45-117); ANION GAP 11 (8-16); BILIRUBIN,TOTAL 0.7 mg/dL (0.2-1.0); CO2 29 mmol/L (21-32); GLUCOSE,RANDOM 103 mg/dL (74-106); PHOSPHOROUS 3.7 mg/dL (2.5-4.9); SGOT/AST 40 U/L (15-37); SGPT/ALT 64 U/L (12-78); TOT PROT 5.3 g/dl (6.4-8.2); URIC ACID 4.5 mg/dL (2.6-7.2)
[2017-05-26] MEDS: NICOTINE 14 MG/24 HOURS TOPICAL PATCH TD SCH (09:45)
[2017-05-26] MEDS: PANTOPRAZOLE 40 MG TABLET (FP) PO SCH (09:45)
[2017-05-26] MEDS: POLYETHYLENE GLYCOL 3350 119 GM BTL PO SCH (09:53)
--- NOTE | 2017-05-26 10:19 | PN ---
Progress Note, Physician History of Present Illness: admitted with ARF pt confused but improving MS - Current Medication List Current Medications: Active Medications Artificial Tears (Artificial Tears) 1 drop OU BID PRN PRN Reason: DRY EYES Diltiazem HCl (Cardizem Cd -) 240 mg PO DAILY [facility] Last Admin: 05/26/17 09:45 Dose: 240 mg Fentanyl (Sublimaze Injection -) 25 mcg IVPUSH [id number] PRN PRN Reason: PAIN Stop: 05/27/17 18:26 Heparin Sodium (Porcine) (Heparin -) 1,000 unit IVPUSH ONCE ONE Stop: 05/25/17 06:01 Heparin Sodium (Porcine) (Heparin -) 1,000 unit IVPUSH PRN PRN PRN Reason: Heparin Heparin Sodium (Porcine) (Heparin -) 5,000 unit IVPUSH PRN PRN PRN Reason: Heparin Last Admin: 05/25/17 09:18 Dose: 5,000 unit Hydralazine HCl (Apresoline -) 25 mg PO TID [facility] Last Admin: 05/26/17 06:08 Dose: 25 mg Heparin Sodium (Porcine) 25, (000 unit/ Sodium Chloride) 500 mls @ 20 mls/hr IV TITR BURKE; 1,000 UNIT/HR PRN Reason: Protocol Last Admin: 05/26/17 06:06 Dose: Not Given Nicotine (Nicoderm Patch -) 14 mg TD DAILY [facility] Last Admin: 05/26/17 09:45 Dose: 14 mg Nystatin (Nystatin Oral Suspension -) 500,000 units PO Q6HPO [facility] Last Admin: 05/26/17 06:08 Dose: 500,000 units Pantoprazole Sodium (Protonix -) 40 mg PO DAILY [facility] Last Admin: 05/26/17 09:45 Dose: 40 mg Polyethylene Glycol (Miralax (For Daily Use) -) 17 gm PO DAILY [facility] Last Admin: 05/26/17 09:53 Dose: 17 g - Objective Vital Signs: Vital Signs Temperature 98.5 F 05/26/17 06:00 Pulse Rate 80 05/26/17 06:00 Respiratory Rate 16 05/26/17 06:00 Blood Pressure 167/87 05/26/17 06:00 O2 Sat by Pulse Oximetry (%) 97 05/25/17 20:28 Cardiovascular: Yes: S1, S2 Respiratory: Yes: Regular, CTA Bilaterally Gastrointestinal: Yes: Normal Bowel Sounds, Soft. No: Tenderness Labs: CBC, BMP 05/26/17 05:35 05/26/17 05:35 INR, PTT INR 1.24 (0.82-1.09) H 05/25/17 15:25 Problem List - Problems (1) Acute renal failure Assessment/Plan: DIALYSIS PER RENAL CR 8 FOLLOW LABS Code(s): N17.9 - ACUTE KIDNEY FAILURE, UNSPECIFIED (2) Atrial fibrillation with RVR Assessment/Plan: OFF COUMADIN-- ON HEPARIN DRIP MONITOR RATE ON MEDS Code(s): I48.91 - UNSPECIFIED ATRIAL FIBRILLATION (3) HTN (hypertension) Assessment/Plan: CARDIZEM 240 HYDRALAZINE 25 TID MONITOR AND ADJUST Code(s): I10 - ESSENTIAL (PRIMARY) HYPERTENSION Qualifiers: Hypertension type: essential hypertension Qualified Code(s): I10 - Essential (primary) hypertension (4) Confusion Assessment/Plan: IMPROVING---RESOLVED MAYBE DUE TO RENAL CT NEGATIVE MRI OF HEAD--R/O CVA Code(s): R41.0 - DISORIENTATION, UNSPECIFIED (5) Hydronephrosis Assessment/Plan: UROLOGY CONSULT--F/U POSSIBLE STENTING Code(s): N13.30 - UNSPECIFIED HYDRONEPHROSIS (6) Pelvic mass Assessment/Plan: UROLOGY Code(s): R19.00 - INTRA-ABD AND PELVIC SWELLING, MASS AND LUMP, UNSP SITE
--- NOTE | 2017-05-26 11:01 | PN ---
Progress Note (short form) - Note Progress Note: Chief Complaint: Events noted, notes reviewed. Remains confused and disoriented although improving, denies any chest pain or dyspnea, atrial fibrillation persists rate controlled History of Present Illness: Seen and examined on telemetry. Events noted, notes reviewed. Remains confused and disoriented although improving, denies any chest pain or dyspnea, atrial fibrillation persists rate controlled Plan to proceed with cystoscopy and intervention this coming week Remains on Heparin drip, once no additional intervention is planned to initiate Coumadin Echocardiography revealed normal LV size and systolic function with no significant valvular pathology - Current Medication List Current Medications Artificial Tears (Artificial Tears) 1 drop OU BID PRN PRN Reason: DRY EYES Diltiazem HCl (Cardizem Cd -) 240 mg PO DAILY [facility] Last Admin: 05/26/17 09:45 Dose: 240 mg Fentanyl (Sublimaze Injection -) 25 mcg IVPUSH [id number] PRN PRN Reason: PAIN Stop: 05/27/17 18:26 Heparin Sodium (Porcine) (Heparin -) 1,000 unit IVPUSH ONCE ONE Stop: 05/25/17 06:01 Heparin Sodium (Porcine) (Heparin -) 1,000 unit IVPUSH PRN PRN PRN Reason: Heparin Heparin Sodium (Porcine) (Heparin -) 5,000 unit IVPUSH PRN PRN PRN Reason: Heparin Last Admin: 05/25/17 09:18 Dose: 5,000 unit Hydralazine HCl (Apresoline -) 25 mg PO TID [facility] Last Admin: 05/26/17 06:08 Dose: 25 mg Heparin Sodium (Porcine) 25, (000 unit/ Sodium Chloride) 500 mls @ 20 mls/hr IV TITR BURKE; 1,000 UNIT/HR PRN Reason: Protocol Last Admin: 05/26/17 06:06 Dose: Not Given Nicotine (Nicoderm Patch -) 14 mg TD DAILY [facility] Last Admin: 05/26/17 09:45 Dose: 14 mg Nystatin (Nystatin Oral Suspension -) 500,000 units PO Q6HPO [facility] Last Admin: 05/26/17 06:08 Dose: 500,000 units Pantoprazole Sodium (Protonix -) 40 mg PO DAILY [facility] Last Admin: 05/26/17 09:45 Dose: 40 mg Polyethylene Glycol (Miralax (For Daily Use) -) 17 gm PO DAILY [facility] Last Admin: 05/26/17 09:53 Dose: 17 g Review of Systems Cardiovascular: As noted above Respiratory: denies: Cough or Sputum Production Gastrointestinal: denies: Nausea, Vomiting, Diarrhea, Constipation or Abdominal Discomfort Musculoskeletal: No Symptoms Reported Endocrine: No Symptoms Reported - Objective Vital Signs: Last Vital Signs Temp Pulse Resp BP Pulse Ox 98.5 F 80 16 167/87 97 05/26/17 06:00 05/26/17 06:00 05/26/17 06:00 05/26/17 06:00 05/25/17 20:28 Intake & Output 05/23/17 05/24/17 05/25/17 05/26/17 23:59 23:59 23:59 23:59 Intake Total 1060 1206 648 400 Output Total 50 60 100 Balance 1010 1146 548 400 Weight 260 lb 1 oz 274 lb 1.6 oz 247 lb 9.6 oz 244 lb 6.4 oz Neck: Supple Negative JVD No Bruit Cardiovascular: S1 S2 Irregularly Irregular No Murmurs, Clicks or Gallops Respiratory: Diminished Breath sounds at the Bases Gastrointestinal: Soft Benign Normal Bowel Sounds Ext: No Edema Labs: CBC, BMP 05/26/17 05:35 05/26/17 05:35 Assessment/Plan ASSESSMENT: 1. Acute renal failure currently on HD as per renal service post Permacath placement 2. CAD angina pectoris, stable 3. Diastolic LV dysfunction with class 0-I NYHA classification LV congestive heart failure, euvolemic 4. Permanent atrial fibrillation on chronic A/C with Coumadin, transient supra- therapeutic INR, currently on Heparin 5. Post Digoxin toxicity 6. Hyperkalemia, resolved 7. Altered mental status/toxic metabolic encephalopathy, persistent although improving 8. Hypertension 9. 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 Hydronephrosis for intervention PLAN: 1. Continue HD as per renal service, monitor urine output 2. Continue Cardizem CD 3. As outlined in prior notes if additional atrial fibrillation rate control is desired add B-Blockers 4. Continue Hydralazine 5. Continue Heparin and resume Coumadin once no further intervention is planned 6. As outlined in prior notes defer resumption of Digoxin therapy at this point 7. Plan to proceed with cystoscopy and possible stenting for management of the above noted hydronephrosis, there are no absolute contraindications in proceeding with the above planned procedure since there is no clinical evidence of ACS and/or de-compensated congestive heart failure and/or malignant ventricular arrhythmia Caro Ordoñez MD
--- NOTE | 2017-05-26 14:28 | PN ---
Progress Note, Physician Chief Complaint: The patient seen in his bed. Awake, pleasant, He is alert. Seems comfortable. No pains. Denies any shortness of breath. Urine output remains poor. History of Present Illness: This is a 76 year old gentleman with PMhx of Afib on Coumadin, COPD, Hyperlipidemia, DM Type 2, Hypertension who presented with altered mentation. Found to have BUN/Cr of 109/11 and K of 7.8. Had uneventful HD yesterday. Permcath worked well. - Current Medication List Current Medications: Active Medications Artificial Tears (Artificial Tears) 1 drop OU BID PRN PRN Reason: DRY EYES Diltiazem HCl (Cardizem Cd -) 240 mg PO DAILY [facility] Last Admin: 05/26/17 09:45 Dose: 240 mg Fentanyl (Sublimaze Injection -) 25 mcg IVPUSH [id number] PRN PRN Reason: PAIN Stop: 05/27/17 18:26 Heparin Sodium (Porcine) (Heparin -) 1,000 unit IVPUSH ONCE ONE Stop: 05/25/17 06:01 Heparin Sodium (Porcine) (Heparin -) 1,000 unit IVPUSH PRN PRN PRN Reason: Heparin Heparin Sodium (Porcine) (Heparin -) 5,000 unit IVPUSH PRN PRN PRN Reason: Heparin Last Admin: 05/25/17 09:18 Dose: 5,000 unit Hydralazine HCl (Apresoline -) 25 mg PO TID [facility] Last Admin: 05/26/17 13:32 Dose: 25 mg Heparin Sodium (Porcine) 25, (000 unit/ Sodium Chloride) 500 mls @ 20 mls/hr IV TITR BURKE; 1,000 UNIT/HR PRN Reason: Protocol Last Admin: 05/26/17 06:06 Dose: Not Given Nicotine (Nicoderm Patch -) 14 mg TD DAILY [facility] Last Admin: 05/26/17 09:45 Dose: 14 mg Nystatin (Nystatin Oral Suspension -) 500,000 units PO Q6HPO [facility] Last Admin: 05/26/17 12:32 Dose: 500,000 units Pantoprazole Sodium (Protonix -) 40 mg PO DAILY [facility] Last Admin: 05/26/17 09:45 Dose: 40 mg Polyethylene Glycol (Miralax (For Daily Use) -) 17 gm PO DAILY [facility] Last Admin: 05/26/17 09:53 Dose: 17 g - Objective Vital Signs: Vital Signs Temperature 98.2 F 05/26/17 10:00 Pulse Rate 60 05/26/17 10:00 Respiratory Rate 18 05/26/17 10:00 Blood Pressure 156/63 05/26/17 10:00 O2 Sat by Pulse Oximetry (%) 96 05/26/17 10:00 Constitutional: Yes: Well Nourished, Calm, Pallor Eyes: Yes: Conjunctiva Clear HENT: Yes: Normocephalic Neck: Yes: Trachea Midline Cardiovascular: Yes: Regular Rate and Rhythm, S1, S2 Respiratory: Yes: CTA Bilaterally, Diminished Gastrointestinal: Yes: Normal Bowel Sounds, Soft Genitourinary: Yes: Oliguria. No: CVA Tenderness - Left, CVA Tenderness - Right Edema: No Labs: CBC, BMP 05/26/17 05:35 INR, PTT INR 1.24 (0.82-1.09) H 05/25/17 15:25 Problem List - Problems (1) Acute renal failure Code(s): N17.9 - ACUTE KIDNEY FAILURE, UNSPECIFIED (2) Atrial fibrillation with RVR Code(s): I48.91 - UNSPECIFIED ATRIAL FIBRILLATION (3) Confusion Code(s): R41.0 - DISORIENTATION, UNSPECIFIED (4) HTN (hypertension) Code(s): I10 - ESSENTIAL (PRIMARY) HYPERTENSION Qualifiers: Hypertension type: essential hypertension Qualified Code(s): I10 - Essential (primary) hypertension (5) Hydronephrosis Code(s): N13.30 - UNSPECIFIED HYDRONEPHROSIS (6) Hyperkalemia Code(s): E87.5 - HYPERKALEMIA (7) Hyperphosphatemia Code(s): E83.39 - OTHER DISORDERS OF PHOSPHORUS METABOLISM (8) Metabolic acidosis Code(s): E87.2 - ACIDOSIS (9) Uremia Code(s): N19 - UNSPECIFIED KIDNEY FAILURE (10) Diabetes Code(s): E11.9 - TYPE 2 DIABETES MELLITUS WITHOUT COMPLICATIONS Qualifiers: Diabetes mellitus type: type 2 Diabetes mellitus complication status: without complication Qualified Code(s): E11.9 - Type 2 diabetes mellitus without complications Assessment/Plan This is a 76 year old gentleman with PMhx of Afib on Coumadin, COPD, Hyperlipidemia, DM Type 2, Hypertension who presented with AMS and found to have BUN/Cr of 109/11 and K of 7.8. The patient is in Acute Renal failure, the etiology of the same remains obscure. There is Bilateral Hydronephrosis, and this might be part of the reason for the SILAS, but even after placement of the [place] catheter there is no sign of Renal recovery nor any significant urine output. 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 The patient had placement of a Permacath, and it is expected that he will require many dialysis sessions before any appreciable degree of Renal recovery occurs. If renal functions don't improve, ? Biopsy. Next HD tomorrow. Deysi Patel MD
[2017-05-26 14:29] LABS: BASOPHIL 0.9 % (0-2.0); EOSINOPHIL 4.5 % (0-4.5); MCH 30.9 pg (25.7-33.7); MCHC 33.4 g/dl (32.0-35.9); MEAN CELL VOLUME 92.7 fl (80-96); NEUTROPHILS 70.2 % (42.8-82.8); PLATELET COUNT 177 K/MM3 (134-434); RDW 13.2 % (11.9-15.9); WHITE BLOOD COUNT 8.4 K/mm3 (4.0-10.0)
--- NOTE | 2017-05-26 14:51 | PN ---
Progress Note (short form) - Note Progress Note: Feels OK. Denies CP or SOB. No acute events overnight. Intake & Output 05/23/17 05/24/17 05/25/17 05/26/17 23:59 23:59 23:59 23:59 Intake Total 1060 1206 648 640 Output Total 50 60 100 Balance 1010 1146 548 640 Weight 260 lb 1 oz 274 lb 1.6 oz 247 lb 9.6 oz 244 lb 6.4 oz Last Vital Signs Temp Pulse Resp BP Pulse Ox 97.5 F L 61 20 136/60 96 05/26/17 14:43 05/26/17 14:43 05/26/17 14:43 05/26/17 14:43 05/26/17 10:00 Active Medications Artificial Tears (Artificial Tears) 1 drop OU BID PRN PRN Reason: DRY EYES Diltiazem HCl (Cardizem Cd -) 240 mg PO DAILY [facility] Last Admin: 05/26/17 09:45 Dose: 240 mg Fentanyl (Sublimaze Injection -) 25 mcg IVPUSH [id number] PRN PRN Reason: PAIN Stop: 05/27/17 18:26 Heparin Sodium (Porcine) (Heparin -) 1,000 unit IVPUSH ONCE ONE Stop: 05/25/17 06:01 Heparin Sodium (Porcine) (Heparin -) 1,000 unit IVPUSH PRN PRN PRN Reason: Heparin Heparin Sodium (Porcine) (Heparin -) 5,000 unit IVPUSH PRN PRN PRN Reason: Heparin Last Admin: 05/25/17 09:18 Dose: 5,000 unit Hydralazine HCl (Apresoline -) 25 mg PO TID [facility] Last Admin: 05/26/17 13:32 Dose: 25 mg Heparin Sodium (Porcine) 25, (000 unit/ Sodium Chloride) 500 mls @ 20 mls/hr IV TITR BURKE; 1,000 UNIT/HR PRN Reason: Protocol Last Admin: 05/26/17 06:06 Dose: Not Given Nicotine (Nicoderm Patch -) 14 mg TD DAILY [facility] Last Admin: 05/26/17 09:45 Dose: 14 mg Nystatin (Nystatin Oral Suspension -) 500,000 units PO Q6HPO [facility] Last Admin: 05/26/17 12:32 Dose: 500,000 units Pantoprazole Sodium (Protonix -) 40 mg PO DAILY [facility] Last Admin: 05/26/17 09:45 Dose: 40 mg Polyethylene Glycol (Miralax (For Daily Use) -) 17 gm PO DAILY [facility] Last Admin: 05/26/17 09:53 Dose: 17 g GENERAL: awake, alert, less confused HEAD: Normal with no signs of trauma. EYES: EOM intact, no pallor or icterus. ENT: Ears normal, moist mucous membranes. NECK: Trachea midline, full range of motion, supple. LUNGS: Few scattered rhonchi, no wheeze HEART: Irregularly irregular rate and rhythm, (+) ESM ABDOMEN: Soft, nontender, nondistended, normoactive bowel sounds, no guarding, no rebound, no hepatosplenomegaly, no masses. EXTREMITIES: 2+ pulses, warm, well-perfused, no edema. NEUROLOGICAL: Non-focal SKIN: Warm, dry, normal turgor, no rashes or lesions noted Laboratory Results - last 24 hr 05/25/17 05/25/17 05/26/17 15:25 15:25 05:35 WBC RBC Hgb Hct MCV MCH MCHC RDW Plt Count MPV Neutrophils % Lymphocytes % Monocytes % Eosinophils % Basophils % INR 1.24 H PTT (Actin FS) 67.4 H D 52.7 H Sodium Potassium Chloride Carbon Dioxide Anion Gap BUN Creatinine Creat Clearance w eGFR Random Glucose Uric Acid Calcium Phosphorus Total Bilirubin AST ALT Alkaline Phosphatase Total Protein Albumin 05/26/17 05/26/17 05/26/17 05:35 05:35 13:45 WBC 9.4 8.4 RBC 4.09 4.14 Hgb 12.9 12.8 Hct 37.8 38.4 MCV 92.6 92.7 MCH 31.6 30.9 MCHC 34.1 33.4 RDW 12.9 13.2 Plt Count 177 177 MPV 8.4 8.0 Neutrophils % 66.3 D 70.2 Lymphocytes % 16.7 D 14.9 Monocytes % 10.3 H 9.5 Eosinophils % 5.8 H D 4.5 Basophils % 0.9 0.9 INR PTT (Actin FS) Sodium 141 Potassium 3.9 Chloride 101 Carbon Dioxide 29 Anion Gap 11 BUN 33 H D Creatinine 8.0 H* Creat Clearance w eGFR 6.63 Random Glucose 103 Uric Acid 4.5 D Calcium 8.5 Phosphorus 3.7 D Total Bilirubin 0.7 D AST 40 H D ALT 64 Alkaline Phosphatase 64 Total Protein 5.3 L Albumin 2.7 L Problem List - Problems (1) Acute renal failure Assessment/Plan: Code(s): N17.9 - ACUTE KIDNEY FAILURE, UNSPECIFIED (2) Atrial fibrillation with RVR Assessment/Plan: Code(s): I48.91 - UNSPECIFIED ATRIAL FIBRILLATION (3) HTN (hypertension) Assessment/Plan: Code(s): I10 - ESSENTIAL (PRIMARY) HYPERTENSION (4) Confusion Assessment/Plan: Code(s): R41.0 - DISORIENTATION, UNSPECIFIED PLAN: HD per Renal PO as tolerated O2 as needed Aspiration precautions AC BD TX Dr Zepeda
[2017-05-26] MEDS ORDERED: HEPARIN INFUSION - 500 ML IVPB ONE (15:38)
--- NOTE | 2017-05-26 18:01 | PN ---
Progress Note (short form) - Note Progress Note: UROLOGY. Pt. improving,has gloria. hydroureteronephrosis and poss. bladder lesion ( TCC). will need cysto gloria. retro. poss gloria. JJ stents poss. TURBT.this will be done when medically cleared.
[2017-05-27] MEDS: NYSTATIN 500,000 UNITS/5 ML SUSPENSION PO SCH ×4 (00:10→18:21)
[2017-05-27] MEDS: hydrALAZINE HCL 25 MG TABLET (FP) PO SCH ×3 (06:28→21:01)
--- NOTE | 2017-05-27 07:36 | PN ---
Progress Note (short form) - Note Progress Note: Chief Complaint: Events noted, notes reviewed. Remains confused and disoriented , denies any chest pain or dyspnea, atrial fibrillation persists rate controlled History of Present Illness: Seen and examined on telemetry. Events noted, notes reviewed. Remains confused and disoriented, denies any chest pain or dyspnea, atrial fibrillation persists rate controlled As outlined plan to proceed with cystoscopy and intervention this week Remains on Heparin drip, once no additional intervention is planned to initiate Coumadin Echocardiography revealed normal LV size and systolic function with no significant valvular pathology - Current Medication List Current Medications Artificial Tears (Artificial Tears) 1 drop OU BID PRN PRN Reason: DRY EYES Diltiazem HCl (Cardizem Cd -) 240 mg PO DAILY [facility] Last Admin: 05/26/17 09:45 Dose: 240 mg Fentanyl (Sublimaze Injection -) 25 mcg IVPUSH [id number] PRN PRN Reason: PAIN Stop: 05/27/17 18:26 Heparin Sodium (Porcine) (Heparin -) 1,000 unit IVPUSH ONCE ONE Stop: 05/25/17 06:01 Heparin Sodium (Porcine) (Heparin -) 1,000 unit IVPUSH PRN PRN PRN Reason: Heparin Heparin Sodium (Porcine) (Heparin -) 5,000 unit IVPUSH PRN PRN PRN Reason: Heparin Last Admin: 05/25/17 09:18 Dose: 5,000 unit Hydralazine HCl (Apresoline -) 25 mg PO TID [facility] Last Admin: 05/27/17 06:28 Dose: 25 mg Heparin Sodium (Porcine) 25, (000 unit/ Sodium Chloride) 500 mls @ 20 mls/hr IV TITR BURKE; 1,000 UNIT/HR PRN Reason: Protocol Last Admin: 05/26/17 15:40 Dose: 23 mls/hr Nicotine (Nicoderm Patch -) 14 mg TD DAILY [facility] Last Admin: 05/26/17 09:45 Dose: 14 mg Nystatin (Nystatin Oral Suspension -) 500,000 units PO Q6HPO [facility] Last Admin: 05/27/17 06:28 Dose: 500,000 units Pantoprazole Sodium (Protonix -) 40 mg PO DAILY [facility] Last Admin: 05/26/17 09:45 Dose: 40 mg Polyethylene Glycol (Miralax (For Daily Use) -) 17 gm PO DAILY [facility] Last Admin: 05/26/17 09:53 Dose: 17 g Review of Systems Cardiovascular: As noted above Respiratory: denies: Cough or Sputum Production Gastrointestinal: denies: Nausea, Vomiting, Diarrhea, Constipation or Abdominal Discomfort Musculoskeletal: No Symptoms Reported Endocrine: No Symptoms Reported - Objective Vital Signs: Last Vital Signs Temp Pulse Resp BP Pulse Ox 98.4 F 79 16 155/90 93 L 05/27/17 06:00 05/27/17 06:00 05/27/17 06:00 05/27/17 06:00 05/26/17 20:11 Intake & Output 05/24/17 05/25/17 05/26/17 05/27/17 23:59 23:59 23:59 23:59 Intake Total 1206 648 824 500 Output Total 60 100 100 Balance 1146 548 724 500 Weight 274 lb 1.6 oz 247 lb 9.6 oz 244 lb 6.4 oz Neck: Supple Negative JVD No Bruit Cardiovascular: S1 S2 Irregularly Irregular No Murmurs, Clicks or Gallops Respiratory: Diminished Breath sounds at the Bases Gastrointestinal: Soft Benign Normal Bowel Sounds Ext: No Edema Labs: CBC, BMP 05/26/17 13:45 INR, PTT INR 1.24 (0.82-1.09) H 05/25/17 15:25 Assessment/Plan ASSESSMENT: 1. Acute renal failure currently on HD as per renal service post Permacath placement 2. CAD angina pectoris, stable 3. Diastolic LV dysfunction with class 0-I NYHA classification LV congestive heart failure, euvolemic 4. Permanent atrial fibrillation on chronic A/C with Coumadin, transient supra- therapeutic INR, currently on Heparin 5. Post Digoxin toxicity 6. Hyperkalemia, resolved 7. Altered mental status/toxic metabolic encephalopathy, persistent although improved 8. Hypertension 9. 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 Hydronephrosis for intervention PLAN: 1. Continue HD as per renal service, monitor urine output 2. Continue Cardizem CD 3. As outlined in prior notes if additional atrial fibrillation rate control is desired add B-Blockers 4. Continue Hydralazine 5. Continue Heparin and resume Coumadin once no further intervention is planned 6. As outlined in prior notes defer resumption of Digoxin therapy at this point 7. Plan to proceed with cystoscopy and possible stenting for management of the above noted hydronephrosis, there are no absolute contraindications in proceeding with the above planned procedure since there is no clinical evidence of ACS and/or de-compensated congestive heart failure and/or malignant ventricular arrhythmia Caro Ordoñez MD
[2017-05-27] MEDS ORDERED: HEPARIN NA (PORCINE) 5,000 UNITS/ML 1ML VIAL IVPUSH ONE (09:00)
[2017-05-27 09:03] LABS: BASOPHIL 0.7 % (0-2.0); EOSINOPHIL 4.4 % (0-4.5); MCH 31.1 pg (25.7-33.7); MCHC 33.7 g/dl (32.0-35.9); MEAN CELL VOLUME 92.3 fl (80-96); MEAN PLT VOLUME 8.1 fl (7.5-11.1); NEUTROPHILS 73.6 % (42.8-82.8); PLATELET COUNT 202 K/MM3 (134-434); RDW 13.3 % (11.9-15.9); WHITE BLOOD COUNT 10.5 K/mm3 (4.0-10.0)
[2017-05-27 09:13] LABS: ALBUMIN 2.9 g/dl (3.4-5.0); ANION GAP 11 (8-16); BILIRUBIN,TOTAL 0.7 mg/dL (0.2-1.0); CALCIUM 9.1 mg/dL (8.5-10.1); CO2 30 mmol/L (21-32); GLUCOSE,RANDOM 95 mg/dL (74-106); SGOT/AST 37 U/L (15-37); SGPT/ALT 61 U/L (12-78); TOT PROT 5.9 g/dl (6.4-8.2)
[2017-05-27 09:17] LABS: ALK PHOS 69 U/L (45-117)
[2017-05-27 09:21] LABS: CREATININE 9.8 mg/dL (0.7-1.3)
[2017-05-27] MEDS: POLYETHYLENE GLYCOL 3350 119 GM BTL PO SCH (10:00)
[2017-05-27 11:22] LABS: ANION GAP 7 (8-16); CALCIUM 8.1 mg/dL (8.5-10.1); CO2 34 mmol/L (21-32); GLUCOSE,RANDOM 132 mg/dL (74-106)
--- NOTE | 2017-05-27 12:47 | PN ---
Progress Note (short form) - Note Progress Note: PULMONARY Denies shortness of breath or chest pain. No cough or wheezing. Last Vital Signs Temp Pulse Resp BP Pulse Ox 98.2 F 93 H 18 142/87 93 L 05/27/17 07:30 05/27/17 10:45 05/27/17 10:45 05/27/17 10:45 05/26/17 20:11 Gen: NAD lying supine Heart: RRR Lung: decreased breath sounds at the bases Abd: soft, nontender Ext: + edema CBC, BMP 05/27/17 05:35 05/27/17 10:30 Active Medications Artificial Tears (Artificial Tears) 1 drop OU BID PRN PRN Reason: DRY EYES Diltiazem HCl (Cardizem Cd -) 240 mg PO DAILY [facility] [place] Last Admin: 05/26/17 09:45 Dose: 240 mg Fentanyl (Sublimaze Injection -) 25 mcg IVPUSH [id number] PRN PRN Reason: PAIN Stop: 05/27/17 18:26 Heparin Sodium (Porcine) (Heparin -) 1,000 unit IVPUSH PRN PRN PRN Reason: Heparin Heparin Sodium (Porcine) (Heparin -) 5,000 unit IVPUSH PRN PRN PRN Reason: Heparin Last Admin: 05/25/17 09:18 Dose: 5,000 unit Hydralazine HCl (Apresoline -) 25 mg PO TID [facility] [place] Last Admin: 05/27/17 06:28 Dose: 25 mg Heparin Sodium (Porcine) 25, (000 unit/ Sodium Chloride) 500 mls @ 20 mls/hr IV TITR BURKE; 1,000 UNIT/HR PRN Reason: Protocol Last Admin: 05/26/17 15:40 Dose: 23 mls/hr Nicotine (Nicoderm Patch -) 14 mg TD DAILY [facility] [place] Last Admin: 05/26/17 09:45 Dose: 14 mg Nystatin (Nystatin Oral Suspension -) 500,000 units PO Q6HPO [facility] [place] Last Admin: 05/27/17 06:28 Dose: 500,000 units Pantoprazole Sodium (Protonix -) 40 mg PO DAILY [facility] [place] Last Admin: 05/26/17 09:45 Dose: 40 mg Polyethylene Glycol (Miralax (For Daily Use) -) 17 gm PO DAILY [facility] [place] Last Admin: 05/26/17 09:53 Dose: 17 g A/P Acute Kidney Injury requiring HD LV Diastolic Dysfunction CAD Atrial Fibrillation HTN DM COPD Hydronephrosis - HD per renal - rate controlled - continue anticoagulation - O2 as needed - no pulmonary contraindications to planned cystoscopy
[2017-05-27] MEDS ORDERED: PROPOFOL 20 ML ONE ×2 (13:17)
[2017-05-27] MEDS ORDERED: ePHEDrine SULFATE 50 MG/1 ML AMPULE ONE (13:17)
[2017-05-27] MEDS ORDERED: SUCCINYLCHOLINE CHLORIDE 200 MG/10 ML VIAL ONE (13:17)
--- NOTE | 2017-05-27 13:43 | PN ---
Progress Note, Physician Chief Complaint: AMS, hyperkalemia, Acute renal failure History of Present Illness: The patient is a 76 yo M poor historian with a past medical history significant for chronic AF on anticoagulation, emphysema with long history of cigarette smoking, diverticulitis, hyperlipidemia, type 2 DM and HTN who presented to [facility] ED with confusion. As per patient's tenant in the room, his daughter Fidel called the tenant to check on his father because she had not spoken to him over 24 hours. After the tenant went in the apartment to check on the patient, patient was lying in bed, lethargic but responsive, saying he doesn't feel good. Tenant called the ambulance, patient was awake and alert and was able to transfer himself. After coming to the ER, he slowly deteriorated. He was found to be in acute renal failure, emergent dialysis was needed. Nephrology was called in. NAD, in bed, BUN/Cr improved, although still not normalized seen by Urology - Current Medication List Current Medications: Active Medications Artificial Tears (Artificial Tears) 1 drop OU BID PRN PRN Reason: DRY EYES Diltiazem HCl (Cardizem Cd -) 240 mg PO DAILY [facility] Last Admin: 05/26/17 09:45 Dose: 240 mg Fentanyl (Sublimaze Injection -) 25 mcg IVPUSH [id number] PRN PRN Reason: PAIN Stop: 05/27/17 18:26 Heparin Sodium (Porcine) (Heparin -) 1,000 unit IVPUSH PRN PRN PRN Reason: Heparin Heparin Sodium (Porcine) (Heparin -) 5,000 unit IVPUSH PRN PRN PRN Reason: Heparin Last Admin: 05/25/17 09:18 Dose: 5,000 unit Hydralazine HCl (Apresoline -) 25 mg PO TID [facility] Last Admin: 05/27/17 06:28 Dose: 25 mg Heparin Sodium (Porcine) 25, (000 unit/ Sodium Chloride) 500 mls @ 20 mls/hr IV TITR [facility]; 1,000 UNIT/HR PRN Reason: Protocol Last Admin: 05/26/17 15:40 Dose: 23 mls/hr Nicotine (Nicoderm Patch -) 14 mg TD DAILY [facility] Last Admin: 05/26/17 09:45 Dose: 14 mg Nystatin (Nystatin Oral Suspension -) 500,000 units PO Q6HPO [facility] Last Admin: 05/27/17 06:28 Dose: 500,000 units Pantoprazole Sodium (Protonix -) 40 mg PO DAILY [facility] Last Admin: 05/26/17 09:45 Dose: 40 mg Polyethylene Glycol (Miralax (For Daily Use) -) 17 gm PO DAILY [facility] Last Admin: 05/26/17 09:53 Dose: 17 g Potassium Chloride (K-Dur -) 40 meq PO ONCE ONE Stop: 05/27/17 13:34 Potassium Chloride (K-Dur -) 20 meq PO DAILY [facility] - Objective Vital Signs: Vital Signs Temperature 98.2 F 05/27/17 07:30 Pulse Rate 93 H 05/27/17 10:45 Respiratory Rate 18 05/27/17 10:45 Blood Pressure 142/87 05/27/17 10:45 O2 Sat by Pulse Oximetry (%) 93 L 05/26/17 20:11 Constitutional: Yes: Well Nourished, No Distress, Calm Cardiovascular: Yes: Regular Rate and Rhythm Respiratory: Yes: Regular Gastrointestinal: Yes: Normal Bowel Sounds Musculoskeletal: Yes: WNL Extremities: Yes: WNL Edema: No Peripheral Pulses WNL: Yes Neurological: Yes: Alert Labs: CBC, BMP 05/27/17 05:35 05/27/17 10:30 INR, PTT INR 1.24 (0.82-1.09) H 05/25/17 15:25 Problem List - Problems (1) Acute renal failure Assessment/Plan: -dialysis today -nephrology on case -repeat labs, potassium normalized, Cr still elevated but gradually improving -BL hydronephrosis R>L, pelvic mass? going for cystoscopy today Code(s): N17.9 - ACUTE KIDNEY FAILURE, UNSPECIFIED (2) Atrial fibrillation with RVR Assessment/Plan: -chronic -Heparin SQ and warfarin PO, being held until cystoscopy is done -on Cardizem po, Metoprolol not indicated at this time,rate is controlled Code(s): I48.91 - UNSPECIFIED ATRIAL FIBRILLATION (3) Generalized weakness Code(s): R53.1 - WEAKNESS (4) HTN (hypertension) Assessment/Plan: IV metoprolol BID IV hydralazine PRN Code(s): I10 - ESSENTIAL (PRIMARY) HYPERTENSION Qualifiers: Hypertension type: essential hypertension Qualified Code(s): I10 - Essential (primary) hypertension (5) Hydronephrosis Assessment/Plan: -going for cystoscopy, stenting? as per urology -pelvic mass? -effecting Renal fxn Code(s): N13.30 - UNSPECIFIED HYDRONEPHROSIS (6) Hypokalemia Assessment/Plan: potassium chloride 40 meq once today and 20 meq po daily starting in AM Code(s): E87.6 - HYPOKALEMIA Assessment/Plan see prob list
[2017-05-27] MEDS ORDERED: MIDAZOLAM HCL 2 MG/2 ML SINGLE DOSE VIAL ONE (13:55)
[2017-05-27] MEDS ORDERED: BUPIVACAINE HCL/PF 0.5% (5MG/ML) 10 ML VIAL ONE (14:13)
[2017-05-27] MEDS ORDERED: POTASSIUM CHLORIDE TABS 20 MEQ TABLET.ER (FP) PO ONE (14:30)
[2017-05-27] MEDS ORDERED: ISOSULFAN BLUE 10 MG/ML VIAL SQ ONE (15:03)
--- NOTE | 2017-05-27 15:47 | OP ---
Operative Note - Note: Operative Date: 05/27/17 Pre-Operative Diagnosis: gloria. hydro Operation: cysto gloria. retro, gloria. stents, bladder bx. 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
--- NOTE | 2017-05-27 15:56 | PN ---
Progress Note (short form) - Note Progress Note: Renal Follow up for SILAS Pt seen and examined at the bedside s/p dialysis this am w/o complication NPO for bladder biopsy and stent placement Vital Signs Temperature 98.2 F 05/27/17 07:30 Pulse Rate 93 H 05/27/17 10:45 Respiratory Rate 18 05/27/17 10:45 Blood Pressure 142/87 05/27/17 10:45 O2 Sat by Pulse Oximetry (%) 95 05/27/17 10:00 Intake & Output 05/24/17 05/25/17 05/26/17 05/27/17 23:59 23:59 23:59 23:59 Intake Total 1206 058 252 4259 Output Total 60 100 100 Balance 1146 014 324 1360 Weight 274 lb 1.6 oz 247 lb 9.6 oz 244 lb 6.4 oz Gen: awake and alert, hard of hearing CVS: RRR Lungs: CTA, anterior exam Abd: soft NT/ND Ext: No edema, clubbing or cyanosis : no bladder distension, dutton catheter in place CBC, BMP 05/27/17 05:35 05/27/17 10:30 Current Medications Artificial Tears (Artificial Tears) 1 drop OU BID PRN PRN Reason: DRY EYES Diltiazem HCl (Cardizem Cd -) 240 mg PO DAILY [facility] Last Admin: 05/26/17 09:45 Dose: 240 mg Fentanyl (Sublimaze Injection -) 25 mcg IVPUSH [id number] PRN PRN Reason: PAIN Stop: 05/27/17 18:26 Heparin Sodium (Porcine) (Heparin -) 1,000 unit IVPUSH PRN PRN PRN Reason: Heparin Heparin Sodium (Porcine) (Heparin -) 5,000 unit IVPUSH PRN PRN PRN Reason: Heparin Last Admin: 05/25/17 09:18 Dose: 5,000 unit Hydralazine HCl (Apresoline -) 25 mg PO TID [facility] Last Admin: 05/27/17 06:28 Dose: 25 mg Heparin Sodium (Porcine) 25, (000 unit/ Sodium Chloride) 500 mls @ 20 mls/hr IV TITR [facility]; 1,000 UNIT/HR PRN Reason: Protocol Last Admin: 05/26/17 15:40 Dose: 23 mls/hr Nicotine (Nicoderm Patch -) 14 mg TD DAILY [facility] Last Admin: 05/26/17 09:45 Dose: 14 mg Nystatin (Nystatin Oral Suspension -) 500,000 units PO Q6HPO [facility] Last Admin: 05/27/17 06:28 Dose: 500,000 units Pantoprazole Sodium (Protonix -) 40 mg PO DAILY [facility] Last Admin: 05/26/17 09:45 Dose: 40 mg Polyethylene Glycol (Miralax (For Daily Use) -) 17 gm PO DAILY [facility] Last Admin: 05/26/17 09:53 Dose: 17 g Potassium Chloride (K-Dur -) 20 meq PO DAILY [facility] A/P 76 year old gentleman with PMhx of Afib on Coumadin, COPD, Hyperlipidemia, DM Type 2, Hypertension who presented with AMS and found to have BUN/Cr of 109/11 and K of 7.8. 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 causing obstruction of the distal ureter s/p b/l stenting and bladder biopsy today [facility] Problem List - Problems (1) Acute renal failure Code(s): N17.9 - ACUTE KIDNEY FAILURE, UNSPECIFIED (2) Atrial fibrillation with RVR Code(s): I48.91 - UNSPECIFIED ATRIAL FIBRILLATION (3) HTN (hypertension) Code(s): I10 - ESSENTIAL (PRIMARY) HYPERTENSION Qualifiers: Hypertension type: essential hypertension Qualified Code(s): I10 - Essential (primary) hypertension (4) Hyperkalemia Code(s): E87.5 - HYPERKALEMIA (5) Uremia Code(s): N19 - UNSPECIFIED KIDNEY FAILURE (6) Metabolic acidosis Code(s): E87.2 - ACIDOSIS (7) Hyperphosphatemia Code(s): E83.39 - OTHER DISORDERS OF PHOSPHORUS METABOLISM (8) Hyponatremia Code(s): E87.1 - HYPO-OSMOLALITY AND HYPONATREMIA
[2017-05-27 16:57] LABS: URINE APPEARANCE CLOUDY; URINE BILIRUBIN NEGATIVE (NEGATIVE); URINE BLOOD 3+ (NEGATIVE); URINE COLOR RED; URINE GLUCOSE (UA) NEGATIVE (NEGATIVE); URINE KETONE NEGATIVE (NEGATIVE); URINE LEUK ESTERASE TRACE (NEGATIVE); URINE NITRITE NEGATIVE (NEGATIVE); URINE UROBILINOGEN NEGATIVE mg/dL (0.2-1.0)
[2017-05-27 17:05] LABS: URINE PROTEIN 1+ (NEGATIVE)
[2017-05-27 17:18] LABS: URIC ACID CRYSTALS MANY /hpf (NONE SEEN); URINE RBC 1565 /hpf (0-3); URINE WBC 167 /hpf (3-5)
[2017-05-27] MEDS: PANTOPRAZOLE 40 MG TABLET (FP) PO SCH (18:12)
[2017-05-27] MEDS: NICOTINE 14 MG/24 HOURS TOPICAL PATCH TD SCH (18:13)
[2017-05-27] MEDS: HEPARIN - 25,000 UNIT in SODIUM CHLORIDE 495 ML IV SCH (20:00)
[2017-05-28] MEDS: NYSTATIN 500,000 UNITS/5 ML SUSPENSION PO SCH ×4 (00:43→17:36)
[2017-05-28] MEDS: HEPARIN - 25,000 UNIT in SODIUM CHLORIDE 495 ML IV SCH ×4 (02:25→20:36)
[2017-05-28] MEDS: HEPARIN NA (PORCINE) 5,000 UNITS/ML 1ML VIAL IVPUSH PRN ×3 (02:27→18:12)
[2017-05-28] MEDS: hydrALAZINE HCL 25 MG TABLET (FP) PO SCH ×3 (06:00→21:37)
--- NOTE | 2017-05-28 07:44 | OP ---
DATE OF OPERATION: 05/27/2017 SURGEON: Luke Ortega MD PREOPERATIVE DIAGNOSIS: Bilateral hydroureteronephrosis, obstructive azotemia, possible bladder mass. . POSTOPERATIVE DIAGNOSIS: Extravesical mass with bilateral ureteral obstruction. OPERATIVE PROCEDURE: Cystourethroscopy, bilateral retrograde pyelograms, bilateral JJ stenting, bladder biopsy and bladder fulguration. ANESTHESIA: Spinal. DESCRIPTION OF PROCEDURE: Under above stated anesthesia, patient was prepped and draped in the usual sterile manner. He was placed in the dorsal lithotomy position. Examination of the external genitalia revealed the prostate to be flat. Palpation of the deep rectum revealed a possible induration of the seminal vesicles and beyond. This is what was causing the bilateral lower ureteral obstruction. Cystoscopy under direct vision revealed a normal anterior urethra. Prostatic urethra revealed a high median lobe. There was trilobar hypertrophy of the prostate. There was lateral lobe kissing. The bladder was entered, urine was collected for culture and sensitivity. Inspection of the bladder revealed bullous edema and hemorrhagic cystitis of the trigone. The bladder revealed a grade 2-3 trabeculation throughout. No overt lesions or calculi were seen. With difficulty, both ureteral orifices were encountered. No urine was seen effluxing from the right or the left. A Flexi-Tip catheter was placed in the right ureteral orifice, and contrast was injected. This revealed a long strictured lower ureter with hydroureteronephrosis of the upper 2/3 of the ureter as well as the renal pelvis. The same thing was found on the left side. Therefore, a Glidewire was passed up the right renal unit. A 24-cm 6-Romanian JJ stent was passed into the right renal unit. X-rays confirmed good position of the stents. The left retrograde pyelogram revealed a tortuous upper ureter. Therefore, a longer stent was used. Therefore a 26-cm 6-Romanian JJ stent was passed up the left renal unit. The proximal end curled in the renal pelvis. The distal end curled in the bladder. Afterwards, a biopsy was taken from the trigone, which was bleeding with bullous edema. The area was fulgurated for hemostasis. No active bleeding was noted. The bladder was emptied. The scope was removed. A 20-Romanian [place] was inserted and connected to a drainage bag. The patient tolerated the procedure well. He returned to the recovery room in good condition. LUKE ORTEGA M.D. [id number]
--- NOTE | 2017-05-28 08:02 | PN ---
Progress Note (short form) - Note Progress Note: Chief Complaint: Events noted, notes reviewed. Denies any chest pain or dyspnea , remains confused and disoriented, atrial fibrillation persists rate controlled History of Present Illness: Seen and examined on telemetry. Events noted, notes reviewed. Denies any chest pain or dyspnea, remains confused and disoriented, atrial fibrillation persists rate controlled Post cystoscopy post bilateral stents, bladder biopsy and fulgeration Remains on Heparin drip, once no additional intervention is planned to initiate Coumadin Echocardiography revealed normal LV size and systolic function with no significant valvular pathology - Current Medication List Current Medications Artificial Tears (Artificial Tears) 1 drop OU BID PRN PRN Reason: DRY EYES Diltiazem HCl (Cardizem Cd -) 240 mg PO DAILY [facility] Last Admin: 05/27/17 18:13 Dose: 240 mg Heparin Sodium (Porcine) (Heparin -) 1,000 unit IVPUSH PRN PRN PRN Reason: Heparin Last Admin: 05/28/17 02:27 Dose: 1,000 unit Heparin Sodium (Porcine) (Heparin -) 5,000 unit IVPUSH PRN PRN PRN Reason: Heparin Last Admin: 05/25/17 09:18 Dose: 5,000 unit Hydralazine HCl (Apresoline -) 25 mg PO TID [facility] Last Admin: 05/28/17 06:00 Dose: 25 mg Heparin Sodium (Porcine) 25, (000 unit/ Sodium Chloride) 500 mls @ 23 mls/hr IV TITR [facility]; 1,150 UNIT/HR PRN Reason: Protocol Last Admin: 05/28/17 02:25 Dose: 25 mls/hr Nicotine (Nicoderm Patch -) 14 mg TD DAILY [facility] Last Admin: 05/27/17 18:13 Dose: 14 mg Nystatin (Nystatin Oral Suspension -) 500,000 units PO Q6HPO [facility] Last Admin: 05/28/17 06:00 Dose: 500,000 units Pantoprazole Sodium (Protonix -) 40 mg PO DAILY [facility] Last Admin: 05/27/17 18:12 Dose: 40 mg Polyethylene Glycol (Miralax (For Daily Use) -) 17 gm PO DAILY [facility] Last Admin: 05/27/17 10:00 Dose: Not Given Potassium Chloride (K-Dur -) 20 meq PO DAILY [facility] Review of Systems Cardiovascular: As noted above Respiratory: denies: Cough or Sputum Production Gastrointestinal: denies: Nausea, Vomiting, Diarrhea, Constipation or Abdominal Discomfort Musculoskeletal: No Symptoms Reported Endocrine: No Symptoms Reported - Objective Vital Signs: Last Vital Signs Temp Pulse Resp BP Pulse Ox 98.0 F 85 20 159/72 95 05/28/17 05:49 05/28/17 05:49 05/28/17 05:49 05/28/17 05:49 05/27/17 22:00 Intake & Output 05/25/17 05/26/17 05/27/17 05/28/17 23:59 23:59 23:59 23:59 Intake Total 809 774 1273 362 Output Total 291 959 9113 1400 Balance 548 724 0 -1038 Weight 247 lb 9.6 oz 244 lb 6.4 oz 261 lb 6.4 oz Neck: Supple Negative JVD No Bruit Cardiovascular: S1 S2 Irregularly Irregular No Murmurs, Clicks or Gallops Respiratory: Diminished Breath sounds at the Bases Gastrointestinal: Soft Benign Normal Bowel Sounds Ext: No Edema Labs: Blood test from this AM timed at 5:35 not available yet INR, PTT INR 1.24 (0.82-1.09) H 05/25/17 15:25 Assessment/Plan ASSESSMENT: 1. Acute renal failure currently on HD as per renal service post Permacath placement 2. CAD angina pectoris, stable 3. Diastolic LV dysfunction with class 0-I NYHA classification LV congestive heart failure, euvolemic 4. Permanent atrial fibrillation on chronic A/C with Coumadin, transient supra- therapeutic INR, currently on Heparin 5. Post Digoxin toxicity 6. Hyperkalemia, resolved 7. Altered mental status/toxic metabolic encephalopathy, persistent although improved 8. Hypertension 9. 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 Hydronephrosis post intervention, cystoscopy post bilateral stents, bladder biopsy and fulgeration PLAN: 1. Continue HD as per renal service, monitor urine output 2. Continue Cardizem CD 3. As outlined in prior notes if additional atrial fibrillation rate control is desired add B-Blockers 4. Continue Hydralazine 5. Continue Heparin and resume Coumadin once no further intervention is planned 6. As outlined in prior notes defer resumption of Digoxin therapy at this point Caro Ordoñez MD
[2017-05-28 08:06] LABS: BASOPHIL 0.6 % (0-2.0); EOSINOPHIL 2.9 % (0-4.5); MCHC 33.5 g/dl (32.0-35.9); MEAN CELL VOLUME 92.6 fl (80-96); MEAN PLT VOLUME 7.9 fl (7.5-11.1); NEUTROPHILS 72.2 % (42.8-82.8); PLATELET COUNT 189 K/MM3 (134-434); WHITE BLOOD COUNT 9.5 K/mm3 (4.0-10.0)
[2017-05-28 08:29] LABS: ALK PHOS 72 U/L (45-117); ANION GAP 8 (8-16); BILIRUBIN,TOTAL 0.8 mg/dL (0.2-1.0); CALCIUM 9.1 mg/dL (8.5-10.1); CO2 27 mmol/L (21-32); CREATININE 2.1 mg/dL (0.7-1.3); GLUCOSE,RANDOM 89 mg/dL (74-106); MAGNESIUM 1.9 mg/dL (1.8-2.4); PHOSPHOROUS 2.2 mg/dL (2.5-4.9); SGOT/AST 34 U/L (15-37); SGPT/ALT 55 U/L (12-78); TOT PROT 5.8 g/dl (6.4-8.2)
--- NOTE | 2017-05-28 08:34 | PN ---
Progress Note, Physician - Current Medication List Current Medications: Active Medications Artificial Tears (Artificial Tears) 1 drop OU BID PRN PRN Reason: DRY EYES Diltiazem HCl (Cardizem Cd -) 240 mg PO DAILY [facility] Last Admin: 05/27/17 18:13 Dose: 240 mg Heparin Sodium (Porcine) (Heparin -) 1,000 unit IVPUSH PRN PRN PRN Reason: Heparin Last Admin: 05/28/17 02:27 Dose: 1,000 unit Heparin Sodium (Porcine) (Heparin -) 5,000 unit IVPUSH PRN PRN PRN Reason: Heparin Last Admin: 05/25/17 09:18 Dose: 5,000 unit Hydralazine HCl (Apresoline -) 25 mg PO TID [facility] Last Admin: 05/28/17 06:00 Dose: 25 mg Heparin Sodium (Porcine) 25, (000 unit/ Sodium Chloride) 500 mls @ 23 mls/hr IV TITR [facility]; 1,150 UNIT/HR PRN Reason: Protocol Last Admin: 05/28/17 02:25 Dose: 25 mls/hr Nicotine (Nicoderm Patch -) 14 mg TD DAILY [facility] Last Admin: 05/27/17 18:13 Dose: 14 mg Nystatin (Nystatin Oral Suspension -) 500,000 units PO Q6HPO [facility] Last Admin: 05/28/17 06:00 Dose: 500,000 units Pantoprazole Sodium (Protonix -) 40 mg PO DAILY [facility] Last Admin: 05/27/17 18:12 Dose: 40 mg Polyethylene Glycol (Miralax (For Daily Use) -) 17 gm PO DAILY [facility] Last Admin: 05/27/17 10:00 Dose: Not Given Potassium Chloride (K-Dur -) 20 meq PO DAILY [facility] Warfarin Sodium (Coumadin Protocol) 1 each PO 1800 [facility] PRN Reason: Protocol - Objective Vital Signs: Vital Signs Temperature 98.0 F 05/28/17 05:49 Pulse Rate 85 05/28/17 05:49 Respiratory Rate 20 05/28/17 05:49 Blood Pressure 159/72 05/28/17 05:49 O2 Sat by Pulse Oximetry (%) 95 05/27/17 22:00 Labs: CBC, BMP 05/28/17 05:35 05/28/17 05:35 INR, PTT INR 1.24 (0.82-1.09) H 05/25/17 15:25 Problem List - Problems (1) Acute renal failure Code(s): N17.9 - ACUTE KIDNEY FAILURE, UNSPECIFIED (2) Atrial fibrillation with RVR Code(s): I48.91 - UNSPECIFIED ATRIAL FIBRILLATION (3) HTN (hypertension) Code(s): I10 - ESSENTIAL (PRIMARY) HYPERTENSION Qualifiers: Hypertension type: essential hypertension Qualified Code(s): I10 - Essential (primary) hypertension (4) Confusion Code(s): R41.0 - DISORIENTATION, UNSPECIFIED (5) Hydronephrosis Code(s): N13.30 - UNSPECIFIED HYDRONEPHROSIS (6) Pelvic mass Code(s): R19.00 - INTRA-ABD AND PELVIC SWELLING, MASS AND LUMP, UNSP SITE Assessment/Plan - Problems (1) Acute renal failure Assessment/Plan: -Monitor renal function -nephrology on case -repeat labs, potassium normalized, Cr still elevated but improving -BL hydronephrosis R>L, pelvic mass--s/p Stenting Code(s): N17.9 - ACUTE KIDNEY FAILURE, UNSPECIFIED (2) Atrial fibrillation with RVR Assessment/Plan: -chronic -Heparin and warfarin PO -on Cardizem po, Metoprolol not indicated at this time,rate is controlled Code(s): I48.91 - UNSPECIFIED ATRIAL FIBRILLATION (3) Generalized weakness pt--snf Code(s): R53.1 - WEAKNESS (4) HTN (hypertension) Assessment/Plan: monitor on current meds 05/24/17 22:00 Hydralazine HCl [Apresoline -] 25 mg PO TID 05/25/17 10:00 Diltiazem Cd [Cardizem Cd -] 240 mg PO DAILY Code(s): I10 - ESSENTIAL (PRIMARY) HYPERTENSION Qualifiers: Hypertension type: essential hypertension Qualified Code(s): I10 - Essential (primary) hypertension (5) Hydronephrosis Assessment/Plan: -going for cystoscopy, s/p stenting -pelvic mass? -effecting Renal fxn Code(s): N13.30 - UNSPECIFIED HYDRONEPHROSIS (6) Hypokalemia Assessment/Plan: potassium chloride 40 meq once today and 20 meq po daily starting in AM Code(s): E87.6 - HYPOKALEMIA
[2017-05-28] MEDS: PANTOPRAZOLE 40 MG TABLET (FP) PO SCH (09:07)
[2017-05-28] MEDS: NICOTINE 14 MG/24 HOURS TOPICAL PATCH TD SCH (09:08)
[2017-05-28] MEDS: POLYETHYLENE GLYCOL 3350 119 GM BTL PO SCH (09:08)
[2017-05-28] MEDS: POTASSIUM CHLORIDE TABS 20 MEQ TABLET.ER (FP) PO SCH (09:08)
--- NOTE | 2017-05-28 11:42 | PN ---
Progress Note (short form) - Note Progress Note: Renal Follow up for SILAS Pt seen and examined at the bedside s/p cysto with stent placement yesterday made > 2L of urine s/p stents Cr improved significantly this am pt without any acute complaints Vital Signs Temperature 98 F 05/28/17 10:00 Pulse Rate 70 05/28/17 10:00 Respiratory Rate 18 05/28/17 10:00 Blood Pressure 158/76 05/28/17 10:00 O2 Sat by Pulse Oximetry (%) 95 05/27/17 22:00 Intake & Output 05/25/17 05/26/17 05/27/17 05/28/17 23:59 23:59 23:59 23:59 Intake Total 868 431 2424 362 Output Total 413 450 2816 2000 Balance 548 724 0 -1638 Weight 247 lb 9.6 oz 244 lb 6.4 oz 261 lb 6.4 oz Gen: awake and alert, hard of hearing CVS: RRR Lungs: CTA, anterior exam Abd: soft NT/ND Ext: No edema, clubbing or cyanosis : no bladder distension, dutton catheter in place CBC, BMP 05/28/17 05:35 05/28/17 05:35 Laboratory Tests 05/28/17 05:35 Calcium 9.1 Phosphorus 2.2 L D Magnesium 1.9 Albumin 3.0 L Current Medications Artificial Tears (Artificial Tears) 1 drop OU BID PRN PRN Reason: DRY EYES Diltiazem HCl (Cardizem Cd -) 240 mg PO DAILY [facility] Last Admin: 05/28/17 09:08 Dose: 240 mg Heparin Sodium (Porcine) (Heparin -) 1,000 unit IVPUSH PRN PRN PRN Reason: Heparin Last Admin: 05/28/17 09:40 Dose: 1,000 unit Heparin Sodium (Porcine) (Heparin -) 5,000 unit IVPUSH PRN PRN PRN Reason: Heparin Last Admin: 05/25/17 09:18 Dose: 5,000 unit Hydralazine HCl (Apresoline -) 25 mg PO TID [facility] Last Admin: 05/28/17 06:00 Dose: 25 mg Heparin Sodium (Porcine) 25, (000 unit/ Sodium Chloride) 500 mls @ 23 mls/hr IV TITR [facility]; 1,150 UNIT/HR PRN Reason: Protocol Last Admin: 05/28/17 09:40 Dose: 27 mls/hr Nicotine (Nicoderm Patch -) 14 mg TD DAILY [facility] Last Admin: 05/28/17 09:08 Dose: 14 mg Nystatin (Nystatin Oral Suspension -) 500,000 units PO Q6HPO [facility] Last Admin: 05/28/17 06:00 Dose: 500,000 units Pantoprazole Sodium (Protonix -) 40 mg PO DAILY [facility] Last Admin: 05/28/17 09:07 Dose: 40 mg Polyethylene Glycol (Miralax (For Daily Use) -) 17 gm PO DAILY [facility] Last Admin: 05/28/17 09:08 Dose: 17 g Potassium Chloride (K-Dur -) 20 meq PO DAILY [facility] Last Admin: 05/28/17 09:08 Dose: 20 meq Warfarin Sodium (Coumadin Protocol) 1 each PO 1800 [facility] PRN Reason: Protocol A/P 76 year old gentleman with PMhx of Afib on Coumadin, COPD, Hyperlipidemia, DM Type 2, Hypertension who presented with AMS and found to have BUN/Cr of 109/11 and K of 7.8. 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 pt with significant urine output and improvement in renal function s/p stent placement repeat renal US shows mild/moderate hydronephsosis with distended bladder despite Dutton (will need to flush dutton to ensure that catheter not obstructed) on initial presentation pt likely had incomplete obstruction in addition to volume depletion and thus no significant hydronephrosis seen on admission renal US Start 1/2 NS at 75cc per Repeat BMP at noon today if renal function remains improved and stable can plan to remove dialysis catheter [facility] Problem List - Problems (1) Acute renal failure Code(s): N17.9 - ACUTE KIDNEY FAILURE, UNSPECIFIED (2) Atrial fibrillation with RVR Code(s): I48.91 - UNSPECIFIED ATRIAL FIBRILLATION (3) HTN (hypertension) Code(s): I10 - ESSENTIAL (PRIMARY) HYPERTENSION Qualifiers: Hypertension type: essential hypertension Qualified Code(s): I10 - Essential (primary) hypertension (4) Hyperkalemia Code(s): E87.5 - HYPERKALEMIA (5) Uremia Code(s): N19 - UNSPECIFIED KIDNEY FAILURE (6) Metabolic acidosis Code(s): E87.2 - ACIDOSIS (7) Hyperphosphatemia Code(s): E83.39 - OTHER DISORDERS OF PHOSPHORUS METABOLISM (8) Hyponatremia Code(s): E87.1 - HYPO-OSMOLALITY AND HYPONATREMIA
[2017-05-28 13:04] LABS: INR 1.14 (0.82-1.09); PROTHROMBIN TIME (PATIENT) 12.6 SEC (9.98-11.88)
--- NOTE | 2017-05-28 13:31 | PN ---
Progress Note (short form) - Note Progress Note: PULMONARY s/p cystoscopy with stent placment. Denies shortness of breath or chest pain. No cough or wheezing. Last Vital Signs Temp Pulse Resp BP Pulse Ox 98 F 70 18 158/76 96 05/28/17 10:00 05/28/17 10:00 05/28/17 10:00 05/28/17 10:00 05/28/17 10:00 Gen: NAD lying supine Heart: RRR Lung: decreased breath sounds at the bases Abd: soft, nontender Ext: +trace edema CBC, BMP 05/28/17 05:35 05/28/17 05:35 Active Medications Artificial Tears (Artificial Tears) 1 drop OU BID PRN PRN Reason: DRY EYES Diltiazem HCl (Cardizem Cd -) 240 mg PO DAILY [facility] Last Admin: 05/28/17 09:08 Dose: 240 mg Heparin Sodium (Porcine) (Heparin -) 1,000 unit IVPUSH PRN PRN PRN Reason: Heparin Last Admin: 05/28/17 09:40 Dose: 1,000 unit Heparin Sodium (Porcine) (Heparin -) 5,000 unit IVPUSH PRN PRN PRN Reason: Heparin Last Admin: 05/25/17 09:18 Dose: 5,000 unit Hydralazine HCl (Apresoline -) 25 mg PO TID [facility] Last Admin: 05/28/17 06:00 Dose: 25 mg Heparin Sodium (Porcine) 25, (000 unit/ Sodium Chloride) 500 mls @ 23 mls/hr IV TITR [facility]; 1,150 UNIT/HR PRN Reason: Protocol Last Admin: 05/28/17 09:40 Dose: 27 mls/hr Nicotine (Nicoderm Patch -) 14 mg TD DAILY [facility] Last Admin: 05/28/17 09:08 Dose: 14 mg Nystatin (Nystatin Oral Suspension -) 500,000 units PO Q6HPO [facility] Last Admin: 05/28/17 12:14 Dose: 500,000 units Pantoprazole Sodium (Protonix -) 40 mg PO DAILY [facility] Last Admin: 05/28/17 09:07 Dose: 40 mg Polyethylene Glycol (Miralax (For Daily Use) -) 17 gm PO DAILY [facility] Last Admin: 05/28/17 09:08 Dose: 17 g Potassium Chloride (K-Dur -) 20 meq PO DAILY [facility] Last Admin: 05/28/17 09:08 Dose: 20 meq Warfarin Sodium (Coumadin Protocol) 1 each PO 1800 [facility] PRN Reason: Protocol A/P Acute Kidney Injury requiring HD LV Diastolic Dysfunction CAD Atrial Fibrillation HTN DM COPD Hydronephrosis - HD per renal - rate controlled - continue anticoagulation - O2 as needed
[2017-05-28] MEDS ORDERED: WARFARIN PROTOCOL PO SCH (18:00)
[2017-05-28] MEDS ORDERED: WARFARIN NA 2.5 MG TABLET (FP) PO ONE (18:00)
[2017-05-29] MEDS: NYSTATIN 500,000 UNITS/5 ML SUSPENSION PO SCH ×4 (01:04→17:56)
[2017-05-29] MEDS: HEPARIN - 25,000 UNIT in SODIUM CHLORIDE 495 ML IV SCH ×3 (01:48→17:15)
[2017-05-29] MEDS: HEPARIN NA (PORCINE) 5,000 UNITS/ML 1ML VIAL IVPUSH PRN (01:48)
[2017-05-29] MEDS: hydrALAZINE HCL 25 MG TABLET (FP) PO SCH ×3 (06:23→22:26)
[2017-05-29 07:33] LABS: EOSINOPHIL 4.1 % (0-4.5); MCH 31.5 pg (25.7-33.7); MCHC 34.1 g/dl (32.0-35.9); MEAN CELL VOLUME 92.3 fl (80-96); MEAN PLT VOLUME 8.7 fl (7.5-11.1); NEUTROPHILS 65.2 % (42.8-82.8); PLATELET COUNT 209 K/MM3 (134-434); WHITE BLOOD COUNT 10.1 K/mm3 (4.0-10.0)
[2017-05-29 07:58] LABS: ALBUMIN 2.9 g/dl (3.4-5.0); ANION GAP 8 (8-16); CALCIUM 9.1 mg/dL (8.5-10.1); CO2 27 mmol/L (21-32); CREATININE 1.2 mg/dL (0.7-1.3); GLUCOSE,RANDOM 91 mg/dL (74-106); PHOSPHOROUS 2.2 mg/dL (2.5-4.9); SGOT/AST 29 U/L (15-37); SGPT/ALT 50 U/L (12-78)
[2017-05-29 08:03] LABS: ALK PHOS 65 U/L (45-117); BILIRUBIN,TOTAL 0.8 mg/dL (0.2-1.0); TOT PROT 5.6 g/dl (6.4-8.2)
--- NOTE | 2017-05-29 09:32 | PN ---
Physical Exam: SUBJECTIVE: Patient seen and examined. Sitting comfortably in bed No new complaints Feels good Denies chest pain, sob, swelling in legs. [place] cath in situ, has some haematuria. Made 3300ml of urine. Intake & Output 05/26/17 05/27/17 05/28/17 05/29/17 23:59 23:59 23:59 23:59 Intake Total 824 2200 590 329 Output Total 100 2200 3300 700 Balance 724 0 -2710 -371 Weight 244 lb 6.4 oz 261 lb 6.4 oz OBJECTIVE: Vital Signs Period Temp Pulse Resp BP Sys/Ching Pulse Ox Last 24 Hr 98 F-98.3 F 69-83 18-24 131-158/53-76 95-97 GENERAL: The patient is awake, alert, and fully oriented, in no acute distress. ENT: dry mucous membranes. LUNGS: Breath sounds equal, clear to auscultation bilaterally, no wheezes, no crackles, no accessory muscle use. HEART: Regular rate and rhythm, S1, S2 without murmur, rub or gallop. ABDOMEN: Soft, nontender, nondistended, normoactive bowel sounds, no guarding, no rebound, EXTREMITIES: warm, well-perfused, no edema. PSYCH: Normal mood, normal affect. SKIN: Warm, dry, Laboratory Results - last 24 hr 05/28/17 05/28/17 05/28/17 08:20 11:55 15:40 WBC RBC Hgb Hct MCV MCH MCHC RDW Plt Count MPV Neutrophils % Lymphocytes % Monocytes % Eosinophils % Basophils % INR 1.14 PTT (Actin FS) 44.6 H 46.5 H Sodium Potassium Chloride Carbon Dioxide Anion Gap BUN Creatinine Creat Clearance w eGFR Random Glucose Calcium Phosphorus Magnesium Total Bilirubin AST ALT Alkaline Phosphatase Total Protein Albumin 05/29/17 05/29/17 05/29/17 00:30 06:10 06:10 WBC 10.1 H RBC 3.91 L Hgb 12.3 Hct 36.0 MCV 92.3 MCH 31.5 MCHC 34.1 RDW 13.0 Plt Count 209 MPV 8.7 D Neutrophils % 65.2 Lymphocytes % 18.6 D Monocytes % 11.1 H Eosinophils % 4.1 Basophils % 1.0 INR PTT (Actin FS) 48.9 H Sodium 142 Potassium 3.6 Chloride 107 Carbon Dioxide 27 Anion Gap 8 BUN 10 Creatinine 1.2 D Creat Clearance w eGFR 59.18 Random Glucose 91 Calcium 9.1 Phosphorus 2.2 L Magnesium 2.0 Total Bilirubin 0.8 AST 29 ALT 50 Alkaline Phosphatase 65 Total Protein 5.6 L Albumin 2.9 L 05/29/17 06:10 WBC RBC Hgb Hct MCV MCH MCHC RDW Plt Count MPV Neutrophils % Lymphocytes % Monocytes % Eosinophils % Basophils % INR PTT (Actin FS) 55.5 H Sodium Potassium Chloride Carbon Dioxide Anion Gap BUN Creatinine Creat Clearance w eGFR Random Glucose Calcium Phosphorus Magnesium Total Bilirubin AST ALT Alkaline Phosphatase Total Protein Albumin Active Medications Generic Name Dose Route Start Last Admin Trade Name Freq PRN Reason Stop Dose Admin Artificial Tears 1 drop 05/24/17 18:36 Artificial Tears OU BID PRN DRY EYES Diltiazem HCl 240 mg 05/25/17 10:00 05/28/17 09:08 Cardizem Cd - PO 240 mg DAILY [facility] Administration Heparin Sodium (Porcine) 1,000 unit 05/24/17 18:36 05/29/17 01:48 Heparin - IVPUSH 1,000 unit PRN PRN Administration Heparin Heparin Sodium (Porcine) 5,000 unit 05/24/17 18:36 05/25/17 09:18 Heparin - IVPUSH 5,000 unit PRN PRN Administration Heparin Hydralazine HCl 25 mg 05/24/17 22:00 05/29/17 06:23 Apresoline - PO 25 mg TID [facility] Administration Heparin Sodium (Porcine) 25, 500 mls @ 23 mls/hr 05/27/17 17:15 05/29/17 01:48 000 unit/ Sodium Chloride IV 31 mls/hr TITR [facility] Administration Protocol 1,150 UNIT/HR Nicotine 14 mg 05/25/17 10:00 05/28/17 09:08 Nicoderm Patch - TD 14 mg DAILY [facility] Administration Nystatin 500,000 units 05/25/17 00:00 05/29/17 06:23 Nystatin Oral Suspension - PO 500,000 units Q6HPO [facility] Administration Pantoprazole Sodium 40 mg 05/25/17 10:00 05/28/17 09:07 Protonix - PO 40 mg DAILY [facility] Administration Polyethylene Glycol 17 gm 05/25/17 13:45 05/28/17 09:08 Miralax (For Daily Use) - PO 17 g DAILY [facility] Administration Potassium Chloride 20 meq 05/28/17 10:00 05/28/17 09:08 K-Dur - PO 20 meq DAILY [facility] Administration Warfarin Sodium 1 each 05/28/17 18:00 05/28/17 18:48 Coumadin Protocol PO 1 each 1800 [facility] Administration Protocol ASSESSMENT/PLAN: A/P 76 year old gentleman with PMhx of Afib on Coumadin, COPD, Hyperlipidemia, DM Type 2, Hypertension who presented with AMS and found to have BUN/Cr of 109/11 and K of 7.8. (1) Acute renal failure (2) Atrial fibrillation with RVR (3) HTN (hypertension) (4) Hyperkalemia (5) Uremia (6) Metabolic acidosis (7) Hyperphosphatemia (8) Hyponatremia (9) B/l Urteral orifice obstruction Plan Renal failure in setting of b/luretral orifice obstruction. Renal function has significantly improved after cystoscopy and b/l Double JJ stent placement. [place] cath in situ has some haematuria which could be post procedural or from post obstructive diuresis. patient made 3300ml of urine, negative balance of 2700, Serum Na and K normalize. HD catheter removal. As kidney function improved significantly and as stable. Start IV fluid as patinet is making lot of urine and is in negative balance. Phosphorus replacement. Visit type - Emergency Visit Emergency Visit: Yes ED Registration Date: 05/17/17 Care time: The patient presented to the Emergency Department on the above date and was hospitalized for further evaluation of their emergent condition. - New Patient This patient is new to me today: Yes Date on this admission: 05/29/17 - Critical Care Critical Care patient: No
[2017-05-29] MEDS: POLYETHYLENE GLYCOL 3350 119 GM BTL PO SCH (10:44)
[2017-05-29] MEDS ORDERED: PT OWN MED DRAWER 7, Y5N ONE (10:47)
[2017-05-29] MEDS: NICOTINE 14 MG/24 HOURS TOPICAL PATCH TD SCH (10:48)
[2017-05-29] MEDS: PANTOPRAZOLE 40 MG TABLET (FP) PO SCH (10:49)
[2017-05-29] MEDS: POTASSIUM CHLORIDE TABS 20 MEQ TABLET.ER (FP) PO SCH (10:50)
--- NOTE | 2017-05-29 10:55 | PN ---
Progress Note, Physician History of Present Illness: Rate-controlled afib, denies chest pain or dyspnea. Sensorium improved, blood- tinged urine in dutton. - Current Medication List Current Medications: Active Medications Artificial Tears (Artificial Tears) 1 drop OU BID PRN PRN Reason: DRY EYES Diltiazem HCl (Cardizem Cd -) 240 mg PO DAILY [facility] Last Admin: 05/29/17 10:50 Dose: 240 mg Heparin Sodium (Porcine) (Heparin -) 1,000 unit IVPUSH PRN PRN PRN Reason: Heparin Last Admin: 05/29/17 01:48 Dose: 1,000 unit Heparin Sodium (Porcine) (Heparin -) 5,000 unit IVPUSH PRN PRN PRN Reason: Heparin Last Admin: 05/25/17 09:18 Dose: 5,000 unit Hydralazine HCl (Apresoline -) 25 mg PO TID [facility] Last Admin: 05/29/17 06:23 Dose: 25 mg Heparin Sodium (Porcine) 25, (000 unit/ Sodium Chloride) 500 mls @ 23 mls/hr IV TITR [facility]; 1,150 UNIT/HR PRN Reason: Protocol Last Admin: 05/29/17 01:48 Dose: 31 mls/hr Nicotine (Nicoderm Patch -) 14 mg TD DAILY [facility] Last Admin: 05/29/17 10:48 Dose: 14 mg Nystatin (Nystatin Oral Suspension -) 500,000 units PO Q6HPO [facility] Last Admin: 05/29/17 06:23 Dose: 500,000 units Pantoprazole Sodium (Protonix -) 40 mg PO DAILY [facility] Last Admin: 05/29/17 10:49 Dose: 40 mg Polyethylene Glycol (Miralax (For Daily Use) -) 17 gm PO DAILY [facility] Last Admin: 05/29/17 10:44 Dose: 17 grams Potassium Chloride (K-Dur -) 20 meq PO DAILY [facility] Last Admin: 05/29/17 10:50 Dose: 20 meq Warfarin Sodium (Coumadin Protocol) 1 each PO 1800 [facility] PRN Reason: Protocol Last Admin: 05/28/17 18:48 Dose: 1 each - Objective Vital Signs: Vital Signs Temperature 98.3 F 05/29/17 06:00 Pulse Rate 84 05/29/17 10:38 Respiratory Rate 20 05/29/17 10:38 Blood Pressure 120/60 05/29/17 10:38 O2 Sat by Pulse Oximetry (%) 97 05/28/17 22:00 Constitutional: Yes: No Distress, Calm Neck: Yes: Supple Cardiovascular: Yes: Pulse Irregular Respiratory: Yes: Regular, Diminished Gastrointestinal: Yes: Normal Bowel Sounds, Soft Edema: No Labs: CBC, BMP 05/29/17 06:10 05/29/17 06:10 INR, PTT INR 1.14 (0.82-1.09) 05/28/17 11:55 Problem List - Problems (1) Acute renal failure Code(s): N17.9 - ACUTE KIDNEY FAILURE, UNSPECIFIED Qualifiers: Acute renal failure type: unspecified Qualified Code(s): N17.9 - Acute kidney failure, unspecified (2) Atrial fibrillation with RVR Code(s): I48.91 - UNSPECIFIED ATRIAL FIBRILLATION (3) Diastolic CHF Code(s): I50.30 - UNSPECIFIED DIASTOLIC (CONGESTIVE) HEART FAILURE Qualifiers : Congestive heart failure chronicity: chronic Qualified Code(s): I50.32 - Chronic diastolic (congestive) heart failure (4) HTN (hypertension) Code(s): I10 - ESSENTIAL (PRIMARY) HYPERTENSION Qualifiers: Hypertension type: essential hypertension Qualified Code(s): I10 - Essential (primary) hypertension (5) Hydronephrosis Code(s): N13.30 - UNSPECIFIED HYDRONEPHROSIS Qualifiers: Hydronephrosis type: unspecified Qualified Code(s): N13.30 - Unspecified hydronephrosis (6) Pelvic mass Code(s): R19.00 - INTRA-ABD AND PELVIC SWELLING, MASS AND LUMP, UNSP SITE (7) Uremia Code(s): N19 - UNSPECIFIED KIDNEY FAILURE Assessment/Plan Echocardiography revealed normal LV size and systolic function with no significant valvular pathology 1. Acute renal failure currently on HD as per renal service post Permacath placement 2. CAD angina pectoris, stable 3. Diastolic LV dysfunction with class 0-I NYHA classification LV congestive heart failure, euvolemic 4. Permanent atrial fibrillation on chronic A/C with Coumadin, transient supra- therapeutic INR, currently on Heparin gtt 5. Post Digoxin toxicity 6. Hyperkalemia, resolved 7. Altered mental status/toxic metabolic encephalopathy, persistent although improved 8. Hypertension 9. 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 Continue HD as needed as per renal service, monitor urine output 2. Continue Cardizem CD 240 qd 3. As outlined in prior notes if additional atrial fibrillation rate control is desired add B-Blockers 4. Continue Hydralazine 25 tid 5. Continue Heparin -> Coumadin per INR 6. As outlined in prior notes defer resumption of Digoxin therapy at this point 7. F/u pathology to assess etiology of pelvic mass
[2017-05-29] MEDS ORDERED: SODIUM CHLORIDE 0.45% 1,000 ML IV SCH (11:15)
--- NOTE | 2017-05-29 12:11 | PN ---
Progress Note (short form) - Note Progress Note: PULMONARY Renal function continues to improve s/p stent placement. Denies shortness of breath or chest pain. No cough or wheezing. Last Vital Signs Temp Pulse Resp BP Pulse Ox 98.3 F 84 20 120/60 97 05/29/17 06:00 05/29/17 10:38 05/29/17 10:38 05/29/17 10:38 05/28/17 22:00 Gen: NAD at rest Heart: RRR Lung: decreased breath sounds at the bases Abd: soft, nontender Ext: +trace edema CBC, BMP 05/29/17 06:10 05/29/17 06:10 Active Medications Artificial Tears (Artificial Tears) 1 drop OU BID PRN PRN Reason: DRY EYES Diltiazem HCl (Cardizem Cd -) 240 mg PO DAILY [facility] Last Admin: 05/29/17 10:50 Dose: 240 mg Heparin Sodium (Porcine) (Heparin -) 1,000 unit IVPUSH PRN PRN PRN Reason: Heparin Last Admin: 05/29/17 01:48 Dose: 1,000 unit Heparin Sodium (Porcine) (Heparin -) 5,000 unit IVPUSH PRN PRN PRN Reason: Heparin Last Admin: 05/25/17 09:18 Dose: 5,000 unit Hydralazine HCl (Apresoline -) 25 mg PO TID [facility] Last Admin: 05/29/17 06:23 Dose: 25 mg Heparin Sodium (Porcine) 25, (000 unit/ Sodium Chloride) 500 mls @ 23 mls/hr IV TITR [facility]; 1,150 UNIT/HR PRN Reason: Protocol Last Admin: 05/29/17 01:48 Dose: 31 mls/hr Sodium Chloride (1/2 Normal Saline) 1,000 mls @ 90 mls/hr IV ASDIR [facility] Nicotine (Nicoderm Patch -) 14 mg TD DAILY [facility] Last Admin: 05/29/17 10:48 Dose: 14 mg Nystatin (Nystatin Oral Suspension -) 500,000 units PO Q6HPO [facility] Last Admin: 05/29/17 11:48 Dose: 500,000 units Pantoprazole Sodium (Protonix -) 40 mg PO DAILY [facility] Last Admin: 05/29/17 10:49 Dose: 40 mg Polyethylene Glycol (Miralax (For Daily Use) -) 17 gm PO DAILY [facility] Last Admin: 05/29/17 10:44 Dose: 17 grams Potassium Chloride (K-Dur -) 40 meq PO DAILY [facility] Warfarin Sodium (Coumadin Protocol) 1 each PO 1800 [facility] PRN Reason: Protocol Last Admin: 05/28/17 18:48 Dose: 1 each A/P Post Obstructive Acute Kidney Injury requiring HD s/p ureteral stent placement/bladder biopsy LV Diastolic Dysfunction CAD Atrial Fibrillation HTN DM COPD Hydronephrosis - monitor urine output, creatinine - f/u pathology - rate controlled - continue anticoagulation - O2 as needed
--- NOTE | 2017-05-29 12:19 | PROC ---
Procedure Note Procedure: Asked by Dr. Carmona (Renal) if we can remove permacatheter as his renal function has recovered COAG profile checked prior to procedure. Right chest wall prepped with chlohexidine. Suture removed. Permacatheter removed fully intact. Direct pressure held for 5 mins --> + hemostaisis Occlusive dressing applied. Patient tolerated procedure well.
--- NOTE | 2017-05-29 12:56 | PN ---
Progress Note (short form) - Note Progress Note: UROLOGY. pt. with h/o obstructive azotemia S//P gloria. JJ STENTS, RENAL FUNCTION RETURNING TO NORMAL PT. WITH A LARGE SUPERIOR,POSTERIOR BLADDER MASS. will need MRA of pelvis with wander. and a ct. guided biopsy by IR in am.will keep dutton untill after the bx. in am.
--- NOTE | 2017-05-29 14:04 | PN ---
Progress Note (short form) - Note Progress Note: Renal Follow up for SILAS Pt seen and examined at the bedside awake and alert, no acute complaints maintains good urine output dutton in place tunneled HD catheter removed this am Vital Signs Temperature 98.3 F 05/29/17 06:00 Pulse Rate 84 05/29/17 10:38 Respiratory Rate 20 05/29/17 10:38 Blood Pressure 120/60 05/29/17 10:38 O2 Sat by Pulse Oximetry (%) 97 05/28/17 22:00 Intake & Output 05/26/17 05/27/17 05/28/17 05/29/17 23:59 23:59 23:59 23:59 Intake Total 824 2200 590 569 Output Total 100 2200 3300 700 Balance 724 0 -2710 -131 Weight 244 lb 6.4 oz 261 lb 6.4 oz Gen: awake and alert, hard of hearing CVS: RRR Lungs: CTA, anterior exam Abd: soft NT/ND Ext: No edema, clubbing or cyanosis : no bladder distension, dutton catheter in place CBC, BMP 05/29/17 06:10 05/29/17 06:10 Laboratory Tests 05/29/17 06:10 Calcium 9.1 Phosphorus 2.2 L Magnesium 2.0 Current Medications Artificial Tears (Artificial Tears) 1 drop OU BID PRN PRN Reason: DRY EYES Diltiazem HCl (Cardizem Cd -) 240 mg PO DAILY [facility] Last Admin: 05/29/17 10:50 Dose: 240 mg Heparin Sodium (Porcine) (Heparin -) 1,000 unit IVPUSH PRN PRN PRN Reason: Heparin Last Admin: 05/29/17 01:48 Dose: 1,000 unit Heparin Sodium (Porcine) (Heparin -) 5,000 unit IVPUSH PRN PRN PRN Reason: Heparin Last Admin: 05/25/17 09:18 Dose: 5,000 unit Hydralazine HCl (Apresoline -) 25 mg PO TID [facility] Last Admin: 05/29/17 06:23 Dose: 25 mg Heparin Sodium (Porcine) 25, (000 unit/ Sodium Chloride) 500 mls @ 23 mls/hr IV TITR [facility]; 1,150 UNIT/HR PRN Reason: Protocol Last Admin: 05/29/17 13:28 Dose: 31 mls/hr Sodium Chloride (1/2 Normal Saline) 1,000 mls @ 90 mls/hr IV ASDIR [facility] Last Admin: 05/29/17 13:29 Dose: 90 mls/hr Nicotine (Nicoderm Patch -) 14 mg TD DAILY [facility] Last Admin: 05/29/17 10:48 Dose: 14 mg Nystatin (Nystatin Oral Suspension -) 500,000 units PO Q6HPO [facility] Last Admin: 05/29/17 11:48 Dose: 500,000 units Pantoprazole Sodium (Protonix -) 40 mg PO DAILY [facility] Last Admin: 05/29/17 10:49 Dose: 40 mg Polyethylene Glycol (Miralax (For Daily Use) -) 17 gm PO DAILY [facility] Last Admin: 05/29/17 10:44 Dose: 17 grams Potassium Chloride (K-Dur -) 40 meq PO DAILY [facility] Warfarin Sodium (Coumadin Protocol) 1 each PO 1800 [facility] PRN Reason: Protocol Last Admin: 05/28/17 18:48 Dose: 1 each A/P 76 year old gentleman with PMhx of Afib on Coumadin, COPD, Hyperlipidemia, DM Type 2, Hypertension who presented with AMS and found to have BUN/Cr of 109/11 and K of 7.8. 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 pt with significant urine output and improvement in renal function s/p stent placement no indication for further dialysis Hd catheter removed start IVF as pt with large volume of urine output #Hypophosphatemia start Neutraphos TID x 3 [facility] Problem List - Problems (1) Acute renal failure Code(s): N17.9 - ACUTE KIDNEY FAILURE, UNSPECIFIED Qualifiers: Acute renal failure type: unspecified Qualified Code(s): N17.9 - Acute kidney failure, unspecified (2) Atrial fibrillation with RVR Code(s): I48.91 - UNSPECIFIED ATRIAL FIBRILLATION (3) HTN (hypertension) Code(s): I10 - ESSENTIAL (PRIMARY) HYPERTENSION Qualifiers: Hypertension type: essential hypertension Qualified Code(s): I10 - Essential (primary) hypertension (4) Hyperkalemia Code(s): E87.5 - HYPERKALEMIA (5) Uremia Code(s): N19 - UNSPECIFIED KIDNEY FAILURE (6) Metabolic acidosis Code(s): E87.2 - ACIDOSIS (7) Hyperphosphatemia Code(s): E83.39 - OTHER DISORDERS OF PHOSPHORUS METABOLISM (8) Hyponatremia Code(s): E87.1 - HYPO-OSMOLALITY AND HYPONATREMIA
--- NOTE | 2017-05-29 14:19 | PATH ---
Surgical Pathology Report Patient Name: EFREN BARKSDALE Med. Rec. #: [id number] /Age/Gender: 1940 (Age: 76) / M Account: [id number] Location: [address] [place] [address]/[facility] Taken: 05/27/2017 Received: 05/28/2017 Reported: 05/29/2017 Physicians: Terri Rico M.D. 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 Electronically Signed Easton Whitlock M.D. Gross Description Received in formalin, labeled "bladder biopsy" is a valdez, irregular portion of soft tissue measuring 0.2 cm in greatest dimension. The specimen is submitted in toto in one cassette. 05/28/201705/28/2017
--- NOTE | 2017-05-29 16:00 | PN ---
Progress Note, Physician Chief Complaint: AMS, hyperkalemia, Acute renal failure History of Present Illness: The patient is a 76 yo M poor historian with a past medical history significant for chronic AF on anticoagulation, emphysema with long history of cigarette smoking, diverticulitis, hyperlipidemia, type 2 DM and HTN who presented to [facility] ED with confusion. As per patient's tenant in the room, his daughter Fidel called the tenant to check on his father because she had not spoken to him over 24 hours. After the tenant went in the apartment to check on the patient, patient was lying in bed, lethargic but responsive, saying he doesn't feel good. Tenant called the ambulance, patient was awake and alert and was able to transfer himself. After coming to the ER, he slowly deteriorated. He was found to be in acute renal failure, emergent dialysis was needed. Nephrology was called in. NAD, no pain in bed, awake, alert and oriented renal function normalized Tunnled cath removed still on Heparin drip - Current Medication List Current Medications: Active Medications Artificial Tears (Artificial Tears) 1 drop OU BID PRN PRN Reason: DRY EYES Diltiazem HCl (Cardizem Cd -) 240 mg PO DAILY [facility] Last Admin: 05/29/17 10:50 Dose: 240 mg Heparin Sodium (Porcine) (Heparin -) 1,000 unit IVPUSH PRN PRN PRN Reason: Heparin Last Admin: 05/29/17 01:48 Dose: 1,000 unit Heparin Sodium (Porcine) (Heparin -) 5,000 unit IVPUSH PRN PRN PRN Reason: Heparin Last Admin: 05/25/17 09:18 Dose: 5,000 unit Hydralazine HCl (Apresoline -) 25 mg PO TID [facility] Last Admin: 05/29/17 14:54 Dose: 25 mg Heparin Sodium (Porcine) 25, (000 unit/ Sodium Chloride) 500 mls @ 23 mls/hr IV TITR [facility]; 1,150 UNIT/HR PRN Reason: Protocol Last Admin: 05/29/17 13:28 Dose: 31 mls/hr Sodium Chloride (1/2 Normal Saline) 1,000 mls @ 90 mls/hr IV ASDIR [facility] Last Admin: 05/29/17 13:29 Dose: 90 mls/hr Nicotine (Nicoderm Patch -) 14 mg TD DAILY [facility] Last Admin: 05/29/17 10:48 Dose: 14 mg Nystatin (Nystatin Oral Suspension -) 500,000 units PO Q6HPO [facility] Last Admin: 05/29/17 11:48 Dose: 500,000 units Pantoprazole Sodium (Protonix -) 40 mg PO DAILY [facility] Last Admin: 05/29/17 10:49 Dose: 40 mg Polyethylene Glycol (Miralax (For Daily Use) -) 17 gm PO DAILY [facility] Last Admin: 05/29/17 10:44 Dose: 17 grams Potassium Chloride (K-Dur -) 40 meq PO DAILY [facility] Potassium Phos/Sodium Phos (Phos-Nak Packet -) 1 packet PO TID [facility] Stop: 05/31/17 14:01 - Objective Vital Signs: Vital Signs Temperature 98.3 F 05/29/17 14:21 Pulse Rate 86 05/29/17 14:46 Respiratory Rate 20 05/29/17 14:46 Blood Pressure 128/58 05/29/17 14:46 O2 Sat by Pulse Oximetry (%) 97 05/28/17 22:00 Constitutional: Yes: Well Nourished, No Distress, Calm Cardiovascular: Yes: Regular Rate and Rhythm Respiratory: Yes: Regular Gastrointestinal: Yes: Normal Bowel Sounds Musculoskeletal: Yes: WNL Extremities: Yes: WNL Edema: No Peripheral Pulses WNL: Yes Neurological: Yes: Alert, Oriented Psychiatric: Yes: Alert, Oriented Labs: CBC, BMP 05/29/17 06:10 05/29/17 06:10 INR, PTT INR 1.14 (0.82-1.09) 05/28/17 11:55 Problem List - Problems (1) Acute renal failure Assessment/Plan: -renal fxn normalized -permacath removed -s/p BL renal stents -renal biopsy in AM -hold heparin 6 hours prior to procedure, at 4 am -hold coumadin for now Code(s): N17.9 - ACUTE KIDNEY FAILURE, UNSPECIFIED Qualifiers: Acute renal failure type: unspecified Qualified Code(s): N17.9 - Acute kidney failure, unspecified (2) Atrial fibrillation with RVR Assessment/Plan: -chronic -Heparin drip -on Cardizem po, Metoprolol not indicated at this time,rate is controlled Code(s): I48.91 - UNSPECIFIED ATRIAL FIBRILLATION (3) Generalized weakness Code(s): R53.1 - WEAKNESS (4) HTN (hypertension) Assessment/Plan: normalized Code(s): I10 - ESSENTIAL (PRIMARY) HYPERTENSION Qualifiers: Hypertension type: essential hypertension Qualified Code(s): I10 - Essential (primary) hypertension (5) Hydronephrosis Assessment/Plan: -renal fxn normalized -BL stents Code(s): N13.30 - UNSPECIFIED HYDRONEPHROSIS Qualifiers: Hydronephrosis type: unspecified Qualified Code(s): N13.30 - Unspecified hydronephrosis (6) Hypokalemia Assessment/Plan: resolved Code(s): E87.6 - HYPOKALEMIA (7) Pelvic mass Assessment/Plan: -CT guided pelvic biopsy for pelvic mass found on CT abdomen in AM -NPO midnight -labs in AM Code(s): R19.00 - INTRA-ABD AND PELVIC SWELLING, MASS AND LUMP, UNSP SITE Assessment/Plan see problem list
[2017-05-29] MEDS: NAPH,MB-DB/K PH,MBDB POWDER PACKET PO SCH (22:26)
[2017-05-30] MEDS: NYSTATIN 500,000 UNITS/5 ML SUSPENSION PO SCH ×4 (01:12→18:24)
[2017-05-30] MEDS: hydrALAZINE HCL 25 MG TABLET (FP) PO SCH ×4 (06:00→22:54)
[2017-05-30] MEDS: NAPH,MB-DB/K PH,MBDB POWDER PACKET PO SCH ×3 (06:49→22:54)
[2017-05-30 08:06] LABS: BASOPHIL 0.8 % (0-2.0); EOSINOPHIL 3.9 % (0-4.5); MCH 32.1 pg (25.7-33.7); MCHC 34.7 g/dl (32.0-35.9); MEAN CELL VOLUME 92.4 fl (80-96); MEAN PLT VOLUME 8.4 fl (7.5-11.1); NEUTROPHILS 72.6 % (42.8-82.8); PLATELET COUNT 247 K/MM3 (134-434); RDW 13.3 % (11.9-15.9); WHITE BLOOD COUNT 9.6 K/mm3 (4.0-10.0)
--- NOTE | 2017-05-30 08:13 | DS ---
Physical Examination Vital Signs: Vital Signs Temperature 98.6 F 05/30/17 06:00 Pulse Rate 80 05/30/17 06:00 Respiratory Rate 20 05/30/17 06:00 Blood Pressure 150/60 05/30/17 06:00 O2 Sat by Pulse Oximetry (%) 95 05/29/17 22:00 Labs: CBC, BMP 05/30/17 06:40 Discharge Summary Reason For Visit: DIABETES MELLITUS/ACUTE RENAL FAILURE/CONGESTIVE Current Active Problems Acute renal failure (Acute) Asbestos-induced pleural plaque (Acute) Atrial fibrillation with RVR (Acute) Confusion (Acute) Dehydration, moderate (Acute) Diastolic CHF (Acute) Generalized weakness (Acute) HTN (hypertension) (Acute) Hydronephrosis (Acute) Hyperkalemia (Acute) Hyperphosphatemia (Acute) Hypokalemia (Acute) Hyponatremia (Acute) Metabolic acidosis (Acute) Pelvic mass (Acute) Uremia (Acute) Hospital Course: The patient is a 76 yo M poor historian with a past medical history significant for chronic AF on anticoagulation, emphysema with long history of cigarette smoking, diverticulitis, hyperlipidemia, type 2 DM and HTN who presented to [facility] ED with confusion. As per patient's tenant in the room, his daughter Fidel called the tenant to check on his father because she had not spoken to him over 24 hours. After the tenant went in the apartment to check on the patient, patient was lying in bed, lethargic but responsive, saying he doesn't feel good. Tenant called the ambulance, patient was awake and alert and was able to transfer himself. After coming to the ER, he slowly deteriorated. He was found to be in acute renal failure, emergent dialysis was needed. Nephrology was called in. History Source: Friend, Medical Record Limitations to Obtaining History: Clinical Condition - Past Medical History Cardiovascular: Yes: AFIB, HTN, Hyperlipdemia Pulmonary: Yes: COPD Gastrointestinal: Yes: Diverticulitis Endocrine: Yes: Diabetes Mellitus - Smoking History Smoking history: Current every day smoker Have you smoked in the past 12 months: Yes - Problems (1) Acute renal failure Assessment/Plan: -renal fxn normalized -permacath removed -s/p BL renal stents -renal biopsy -hold heparin 6 hours prior to procedure -hold coumadin for now Code(s): N17.9 - ACUTE KIDNEY FAILURE, UNSPECIFIED Qualifiers: Acute renal failure type: unspecified Qualified Code(s): N17.9 - Acute kidney failure, unspecified (2) Atrial fibrillation with RVR Assessment/Plan: -chronic -Heparin drip -on Cardizem po, Metoprolol not indicated at this time,rate is controlled Code(s): I48.91 - UNSPECIFIED ATRIAL FIBRILLATION (3) Generalized weakness Code(s): R53.1 - WEAKNESS (4) HTN (hypertension) Assessment/Plan: normalized Code(s): I10 - ESSENTIAL (PRIMARY) HYPERTENSION Qualifiers: Hypertension type: essential hypertension Qualified Code(s): I10 - Essential (primary) hypertension (5) Hydronephrosis Assessment/Plan: -renal fxn normalized -BL stents Code(s): N13.30 - UNSPECIFIED HYDRONEPHROSIS Qualifiers: Hydronephrosis type: unspecified Qualified Code(s): N13.30 - Unspecified hydronephrosis (6) Hypokalemia Assessment/Plan: resolved Code(s): E87.6 - HYPOKALEMIA (7) Pelvic mass Assessment/Plan: -CT guided pelvic biopsy for pelvic mass found on CT abdomen -NPO midnight -labs pending Code(s): R19.00 - INTRA-ABD AND PELVIC SWELLING, MASS AND LUMP, UNSP SITE dc to snf after biopsy and resume ac---consider eliquis 5 mg bid Condition: Poor - Instructions Referrals: Maye Castro MD [Primary Care Provider] - - Home Medications Comprehensive Discharge Medication List: Ambulatory Orders Atorvastatin Calcium DAILY 05/20/17 Digoxin DAILY 05/20/17 Diltiazem HCl [Cartia Xt] DAILY 05/20/17 Gemfibrozil DAILY 05/20/17 Metoprolol Tartrate BID 05/20/17 Entriken-3 Acid Ethyl Esters [Lovaza] BID 05/20/17 Ranitidine [Zantac -] BID 05/20/17 Warfarin Sodium [Coumadin] DAILY 05/20/17
[2017-05-30 08:16] LABS: ALBUMIN 3.2 g/dl (3.4-5.0); ALK PHOS 71 U/L (45-117); ANION GAP 6 (8-16); BILIRUBIN,TOTAL 0.8 mg/dL (0.2-1.0); CALCIUM 9.1 mg/dL (8.5-10.1); CO2 28 mmol/L (21-32); CREATININE 1.5 mg/dL (0.7-1.3); GLUCOSE,RANDOM 98 mg/dL (74-106); SGOT/AST 33 U/L (15-37); SGPT/ALT 58 U/L (12-78); TOT PROT 6.2 g/dl (6.4-8.2)
[2017-05-30 08:49] LABS: INR 1.08 (0.82-1.09); PROTHROMBIN TIME (PATIENT) 11.9 SEC (9.98-11.88)
--- NOTE | 2017-05-30 09:42 | PN ---
Physical Exam: Nephrology follow up SUBJECTIVE: Patient seen and examined. Lying comfortably in bed. Denies chest pain, sob [place] cath in situ, draining clear urine, Creatnines has increased since yesterday could be from hypovolemia from postobstructive diuresis. Continue him on Iv fluid. Intake & Output 05/27/17 05/28/17 05/29/17 05/30/17 23:59 23:59 23:59 23:59 Intake Total 2200 590 1766 1359 Output Total 2200 3300 2000 800 Balance 0 -2710 -234 559 Weight 261 lb 6.4 oz 269 lb OBJECTIVE: Vital Signs Period Temp Pulse Resp BP Sys/Ching Pulse Ox Last 24 Hr 97.7 F-98.6 F 75-87 18-20 120-155/52-80 95-98 GENERAL: The patient is awake, alert, and fully oriented, in no acute distress. ENT: dry mucous membranes. LUNGS: Breath sounds equal, clear to auscultation bilaterally, no wheezes, no crackles, no accessory muscle use. HEART: Regular rate and rhythm, S1, S2 without murmur, rub or gallop. ABDOMEN: Soft, nontender, nondistended, normoactive bowel sounds, no guarding, no rebound, EXTREMITIES: warm, well-perfused, no edema. PSYCH: Normal mood, normal affect. SKIN: Warm, dry, Laboratory Results - last 24 hr 05/30/17 05/30/17 05/30/17 06:40 06:40 06:40 WBC 9.6 RBC 3.96 L Hgb 12.7 Hct 36.6 MCV 92.4 MCH 32.1 MCHC 34.7 RDW 13.3 Plt Count 247 MPV 8.4 Neutrophils % 72.6 Lymphocytes % 12.5 D Monocytes % 10.2 Eosinophils % 3.9 Basophils % 0.8 INR 1.08 PTT (Actin FS) 27.9 D Sodium Potassium Chloride Carbon Dioxide Anion Gap BUN Creatinine Creat Clearance w eGFR Random Glucose Calcium Total Bilirubin AST ALT Alkaline Phosphatase Total Protein Albumin 05/30/17 06:40 WBC RBC Hgb Hct MCV MCH MCHC RDW Plt Count MPV Neutrophils % Lymphocytes % Monocytes % Eosinophils % Basophils % INR PTT (Actin FS) Sodium 141 Potassium 3.8 Chloride 107 Carbon Dioxide 28 Anion Gap 6 L BUN 13 D Creatinine 1.5 H D Creat Clearance w eGFR 45.75 Random Glucose 98 Calcium 9.1 Total Bilirubin 0.8 AST 33 ALT 58 Alkaline Phosphatase 71 Total Protein 6.2 L Albumin 3.2 L Active Medications Generic Name Dose Route Start Last Admin Trade Name Freq PRN Reason Stop Dose Admin Artificial Tears 1 drop 05/24/17 18:36 Artificial Tears OU BID PRN DRY EYES Diltiazem HCl 240 mg 05/25/17 10:00 05/29/17 10:50 Cardizem Cd - PO 240 mg DAILY [facility] Administration Heparin Sodium (Porcine) 1,000 unit 05/24/17 18:36 05/29/17 01:48 Heparin - IVPUSH 1,000 unit PRN PRN Administration Heparin Heparin Sodium (Porcine) 5,000 unit 05/24/17 18:36 05/25/17 09:18 Heparin - IVPUSH 5,000 unit PRN PRN Administration Heparin Hydralazine HCl 25 mg 05/24/17 22:00 05/30/17 06:00 Apresoline - PO Not Given TID [facility] Heparin Sodium (Porcine) 25, 500 mls @ 23 mls/hr 05/27/17 17:15 05/29/17 17:15 000 unit/ Sodium Chloride IV Not Given TITR [facility] Protocol 1,150 UNIT/HR Nicotine 14 mg 05/25/17 10:00 05/29/17 10:48 Nicoderm Patch - TD 14 mg DAILY [facility] Administration Nystatin 500,000 units 05/25/17 00:00 05/30/17 06:49 Nystatin Oral Suspension - PO Not Given Q6HPO [facility] Pantoprazole Sodium 40 mg 05/25/17 10:00 05/29/17 10:49 Protonix - PO 40 mg DAILY [facility] Administration Polyethylene Glycol 17 gm 05/25/17 13:45 05/29/17 10:44 Miralax (For Daily Use) - PO 17 grams DAILY [facility] Administration Potassium Chloride 40 meq 05/29/17 11:03 K-Dur - PO DAILY [facility] Potassium Phos/Sodium Phos 1 packet 05/29/17 22:00 05/30/17 06:49 Phos-Nak Packet - PO 05/31/17 14:01 Not Given TID [facility] ASSESSMENT/PLAN: A/P 76 year old gentleman with PMhx of Afib on Coumadin, COPD, Hyperlipidemia, DM Type 2, Hypertension who presented with AMS and found to have BUN/Cr of 109/11 and K of 7.8. (1) Acute renal failure (2) Atrial fibrillation with RVR (3) HTN (hypertension) (4) Hyperkalemia (5) Uremia (6) Metabolic acidosis (7) Hyperphosphatemia (8) Hyponatremia (9) B/l Urteral orifice obstruction Plan Renal failure in setting of b/luretral orifice obstruction. s/p cystoscopy and b/l Double JJ stent placement. Going for CT guided biopsy and mri Haematuria cleared up. Creatnine has increased could be due to Hypovolemia, will start him on IV fluid Ns 75 ml/hour Monitor electrolytes Visit type - Emergency Visit Emergency Visit: Yes ED Registration Date: 05/17/17 Care time: The patient presented to the Emergency Department on the above date and was hospitalized for further evaluation of their emergent condition. - New Patient This patient is new to me today: No - Critical Care Critical Care patient: No
[2017-05-30] MEDS ORDERED: SODIUM CHLORIDE 1,000 ML IV SCH (10:00)
--- NOTE | 2017-05-30 10:19 | PN ---
Progress Note, Physician Chief Complaint: AMS, hyperkalemia, Acute renal failure History of Present Illness: The patient is a 76 yo M poor historian with a past medical history significant for chronic AF on anticoagulation, emphysema with long history of cigarette smoking, diverticulitis, hyperlipidemia, type 2 DM and HTN who presented to [facility] ED with confusion. As per patient's tenant in the room, his daughter Fidel called the tenant to check on his father because she had not spoken to him over 24 hours. After the tenant went in the apartment to check on the patient, patient was lying in bed, lethargic but responsive, saying he doesn't feel good. Tenant called the ambulance, patient was awake and alert and was able to transfer himself. After coming to the ER, he slowly deteriorated. He was found to be in acute renal failure, emergent dialysis was needed. Nephrology was called in. NAD, no pain in bed, awake, alert and oriented renal function normalized Tunnled cath removed still on Heparin drip - Current Medication List Current Medications: Active Medications Artificial Tears (Artificial Tears) 1 drop OU BID PRN PRN Reason: DRY EYES Diltiazem HCl (Cardizem Cd -) 240 mg PO DAILY [facility] Last Admin: 05/29/17 10:50 Dose: 240 mg Heparin Sodium (Porcine) (Heparin -) 1,000 unit IVPUSH PRN PRN PRN Reason: Heparin Last Admin: 05/29/17 01:48 Dose: 1,000 unit Heparin Sodium (Porcine) (Heparin -) 5,000 unit IVPUSH PRN PRN PRN Reason: Heparin Last Admin: 05/25/17 09:18 Dose: 5,000 unit Hydralazine HCl (Apresoline -) 25 mg PO TID [facility] Last Admin: 05/30/17 06:00 Dose: Not Given Heparin Sodium (Porcine) 25, (000 unit/ Sodium Chloride) 500 mls @ 23 mls/hr IV TITR [facility]; 1,150 UNIT/HR PRN Reason: Protocol Last Admin: 05/29/17 17:15 Dose: Not Given Sodium Chloride (Normal Saline -) 1,000 mls @ 75 mls/hr IV ASDIR [facility] Nicotine (Nicoderm Patch -) 14 mg TD DAILY [facility] Last Admin: 05/29/17 10:48 Dose: 14 mg Nystatin (Nystatin Oral Suspension -) 500,000 units PO Q6HPO [facility] Last Admin: 05/30/17 06:49 Dose: Not Given Pantoprazole Sodium (Protonix -) 40 mg PO DAILY [facility] Last Admin: 05/29/17 10:49 Dose: 40 mg Polyethylene Glycol (Miralax (For Daily Use) -) 17 gm PO DAILY [facility] Last Admin: 05/29/17 10:44 Dose: 17 grams Potassium Chloride (K-Dur -) 40 meq PO DAILY [facility] Potassium Phos/Sodium Phos (Phos-Nak Packet -) 1 packet PO TID [facility] Stop: 05/31/17 14:01 Last Admin: 05/30/17 06:49 Dose: Not Given - Objective Vital Signs: Vital Signs Temperature 97.8 F 05/30/17 09:57 Pulse Rate 92 H 05/30/17 09:57 Respiratory Rate 20 05/30/17 09:57 Blood Pressure 146/75 05/30/17 09:57 O2 Sat by Pulse Oximetry (%) 95 05/29/17 22:00 Constitutional: Yes: Well Nourished, No Distress, Calm Cardiovascular: Yes: Regular Rate and Rhythm Respiratory: Yes: Regular Gastrointestinal: Yes: Normal Bowel Sounds Musculoskeletal: Yes: WNL Extremities: Yes: WNL Edema: No Peripheral Pulses WNL: Yes Neurological: Yes: Alert, Confusion Psychiatric: Yes: Alert Labs: CBC, BMP 05/30/17 06:40 05/30/17 06:40 INR, PTT INR 1.08 (0.82-1.09) 05/30/17 06:40 Problem List - Problems (1) Acute renal failure Assessment/Plan: -Cr increased to 1.5, BUN ok -gentle IV fluids -permacath removed -s/p BL renal stents -hold heparin 6 hours prior to procedure, at 4 am Code(s): N17.9 - ACUTE KIDNEY FAILURE, UNSPECIFIED Qualifiers: Acute renal failure type: unspecified Qualified Code(s): N17.9 - Acute kidney failure, unspecified (2) Atrial fibrillation with RVR Assessment/Plan: -chronic -Heparin drip on hold for Pelvic mass biopsy -february d/c after biopsy -start Eliquis after the procedure for afib -on Cardizem po, Metoprolol not indicated at this time,rate is controlled Code(s): I48.91 - UNSPECIFIED ATRIAL FIBRILLATION (3) Generalized weakness Code(s): R53.1 - WEAKNESS (4) HTN (hypertension) Assessment/Plan: -NPO for the procedure -ok to give BP meds Code(s): I10 - ESSENTIAL (PRIMARY) HYPERTENSION Qualifiers: Hypertension type: essential hypertension Qualified Code(s): I10 - Essential (primary) hypertension (5) Hydronephrosis Assessment/Plan: -Cr increased to 1.5, BUN okay -BL stents Code(s): N13.30 - UNSPECIFIED HYDRONEPHROSIS Qualifiers: Hydronephrosis type: unspecified Qualified Code(s): N13.30 - Unspecified hydronephrosis (6) Pelvic mass Assessment/Plan: -awaiting CT guided pelvic biopsy for pelvic mass found on CT abdomen -NPO -labs in AM Code(s): R19.00 - INTRA-ABD AND PELVIC SWELLING, MASS AND LUMP, UNSP SITE Assessment/Plan see problem list
--- NOTE | 2017-05-30 11:21 | PN ---
Progress Note, Physician History of Present Illness: Rate-controlled afib, denies chest pain or dyspnea. Sensorium improved to baseline, blood-tinged urine in [place]. - Current Medication List Current Medications: Active Medications Artificial Tears (Artificial Tears) 1 drop OU BID PRN PRN Reason: DRY EYES Diltiazem HCl (Cardizem Cd -) 240 mg PO DAILY [facility] Last Admin: 05/30/17 10:23 Dose: 240 mg Heparin Sodium (Porcine) (Heparin -) 1,000 unit IVPUSH PRN PRN PRN Reason: Heparin Last Admin: 05/29/17 01:48 Dose: 1,000 unit Heparin Sodium (Porcine) (Heparin -) 5,000 unit IVPUSH PRN PRN PRN Reason: Heparin Last Admin: 05/25/17 09:18 Dose: 5,000 unit Hydralazine HCl (Apresoline -) 25 mg PO TID [facility] Last Admin: 05/30/17 10:23 Dose: 25 mg Heparin Sodium (Porcine) 25, (000 unit/ Sodium Chloride) 500 mls @ 23 mls/hr IV TITR [facility]; 1,150 UNIT/HR PRN Reason: Protocol Last Admin: 05/29/17 17:15 Dose: Not Given Sodium Chloride (Normal Saline -) 1,000 mls @ 50 mls/hr IV ASDIR [facility] Nicotine (Nicoderm Patch -) 14 mg TD DAILY [facility] Last Admin: 05/29/17 10:48 Dose: 14 mg Nystatin (Nystatin Oral Suspension -) 500,000 units PO Q6HPO [facility] Last Admin: 05/30/17 06:49 Dose: Not Given Pantoprazole Sodium (Protonix -) 40 mg PO DAILY [facility] Last Admin: 05/29/17 10:49 Dose: 40 mg Polyethylene Glycol (Miralax (For Daily Use) -) 17 gm PO DAILY [facility] Last Admin: 05/29/17 10:44 Dose: 17 grams Potassium Chloride (K-Dur -) 40 meq PO DAILY [facility] Potassium Phos/Sodium Phos (Phos-Nak Packet -) 1 packet PO TID [facility] Stop: 05/31/17 14:01 Last Admin: 05/30/17 06:49 Dose: Not Given - Objective Vital Signs: Vital Signs Temperature 97.8 F 05/30/17 09:57 Pulse Rate 92 H 05/30/17 09:57 Respiratory Rate 20 05/30/17 09:57 Blood Pressure 146/75 05/30/17 09:57 O2 Sat by Pulse Oximetry (%) 95 05/29/17 22:00 Constitutional: Yes: No Distress, Calm Neck: Yes: Supple Cardiovascular: Yes: Pulse Irregular Respiratory: Yes: Regular, Diminished Gastrointestinal: Yes: Normal Bowel Sounds, Soft Genitourinary: Yes: [place] Present, Hematuria Edema: No Labs: CBC, BMP 05/30/17 06:40 05/30/17 06:40 INR, PTT INR 1.08 (0.82-1.09) 05/30/17 06:40 Problem List - Problems (1) Acute renal failure Code(s): N17.9 - ACUTE KIDNEY FAILURE, UNSPECIFIED Qualifiers: Acute renal failure type: unspecified Qualified Code(s): N17.9 - Acute kidney failure, unspecified (2) Atrial fibrillation with RVR Code(s): I48.91 - UNSPECIFIED ATRIAL FIBRILLATION (3) Diastolic CHF Code(s): I50.30 - UNSPECIFIED DIASTOLIC (CONGESTIVE) HEART FAILURE Qualifiers : Congestive heart failure chronicity: chronic Qualified Code(s): I50.32 - Chronic diastolic (congestive) heart failure (4) HTN (hypertension) Code(s): I10 - ESSENTIAL (PRIMARY) HYPERTENSION Qualifiers: Hypertension type: essential hypertension Qualified Code(s): I10 - Essential (primary) hypertension (5) Hydronephrosis Code(s): N13.30 - UNSPECIFIED HYDRONEPHROSIS Qualifiers: Hydronephrosis type: unspecified Qualified Code(s): N13.30 - Unspecified hydronephrosis (6) Pelvic mass Code(s): R19.00 - INTRA-ABD AND PELVIC SWELLING, MASS AND LUMP, UNSP SITE (7) Uremia Code(s): N19 - UNSPECIFIED KIDNEY FAILURE Assessment/Plan Echocardiography revealed normal LV size and systolic function with no significant valvular pathology 1. Post obstructive acute renal failure and hyperkalemia requiring HD post tunneled catheter removal 2. CAD angina pectoris, stable 3. Diastolic LV dysfunction with class 0-I NYHA classification LV congestive heart failure, euvolemic 4. Permanent atrial fibrillation on chronic A/C with Coumadin, transient supra- therapeutic INR, currently off Heparin gtt pre-procedure 5. Post Digoxin toxicity 6. Hyperkalemia, resolved 7. Altered mental status/toxic metabolic encephalopathy, resolved 8. Hypertension 9. 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 HD d/zoila with renal recovery, monitor urine output 2. Continue Cardizem CD 240 qd 3. As outlined in prior notes if additional atrial fibrillation rate control is desired add B-Blockers 4. Continue Hydralazine 25 tid 5. Off Heparin gtt held [id number] biopsy, to resume post procedure, heparin -> Coumadin per INR 6. As outlined in prior notes defer resumption of Digoxin therapy at this point 7. F/u pathology to assess etiology of pelvic mass
--- NOTE | 2017-05-30 12:13 | PN ---
Progress Note (short form) - Note Progress Note: PULMONARY Denies shortness of breath or chest pain. No cough or wheezing. Going for CT guided biopsy. Last Vital Signs Temp Pulse Resp BP Pulse Ox 97.8 F 88 19 176/92 100 05/30/17 09:57 05/30/17 11:49 05/30/17 11:49 05/30/17 11:49 05/30/17 11:49 Gen: NAD at rest Heart: RRR Lung: decreased breath sounds at the bases Abd: soft, nontender Ext: +trace edema CBC, BMP 05/30/17 06:40 05/30/17 06:40 Active Medications Artificial Tears (Artificial Tears) 1 drop OU BID PRN PRN Reason: DRY EYES Diltiazem HCl (Cardizem Cd -) 240 mg PO DAILY [facility] Last Admin: 05/30/17 10:23 Dose: 240 mg Heparin Sodium (Porcine) (Heparin -) 1,000 unit IVPUSH PRN PRN PRN Reason: Heparin Last Admin: 05/29/17 01:48 Dose: 1,000 unit Heparin Sodium (Porcine) (Heparin -) 5,000 unit IVPUSH PRN PRN PRN Reason: Heparin Last Admin: 05/25/17 09:18 Dose: 5,000 unit Hydralazine HCl (Apresoline -) 25 mg PO TID [facility] Last Admin: 05/30/17 10:23 Dose: 25 mg Heparin Sodium (Porcine) 25, (000 unit/ Sodium Chloride) 500 mls @ 23 mls/hr IV TITR [facility]; 1,150 UNIT/HR PRN Reason: Protocol Last Admin: 05/29/17 17:15 Dose: Not Given Sodium Chloride (Normal Saline -) 1,000 mls @ 50 mls/hr IV ASDIR [facility] Nicotine (Nicoderm Patch -) 14 mg TD DAILY [facility] Last Admin: 05/29/17 10:48 Dose: 14 mg Nystatin (Nystatin Oral Suspension -) 500,000 units PO Q6HPO [facility] Last Admin: 05/30/17 06:49 Dose: Not Given Pantoprazole Sodium (Protonix -) 40 mg PO DAILY [facility] Last Admin: 05/29/17 10:49 Dose: 40 mg Polyethylene Glycol (Miralax (For Daily Use) -) 17 gm PO DAILY [facility] Last Admin: 05/29/17 10:44 Dose: 17 grams Potassium Chloride (K-Dur -) 40 meq PO DAILY [facility] Potassium Phos/Sodium Phos (Phos-Nak Packet -) 1 packet PO TID [facility] Stop: 05/31/17 14:01 Last Admin: 05/30/17 06:49 Dose: Not Given A/P Post Obstructive Acute Kidney Injury requiring HD s/p ureteral stent placement/bladder biopsy LV Diastolic Dysfunction CAD Atrial Fibrillation HTN DM COPD Hydronephrosis - for CT guided biopsy of pelvic mass - monitor urine output, creatinine - f/u pathology - rate controlled - continue anticoagulation - O2 as needed
[2017-05-30] MEDS: SODIUM CHLORIDE 1,000 ML IV SCH (13:30)
[2017-05-30] MEDS: NICOTINE 14 MG/24 HOURS TOPICAL PATCH TD SCH (13:37)
[2017-05-30] MEDS: POTASSIUM CHLORIDE TABS 20 MEQ TABLET.ER (FP) PO SCH (13:37)
[2017-05-30] MEDS: POLYETHYLENE GLYCOL 3350 119 GM BTL PO SCH (13:37)
[2017-05-30] MEDS: PANTOPRAZOLE 40 MG TABLET (FP) PO SCH (13:37)
--- NOTE | 2017-05-30 14:15 | PN ---
Progress Note (short form) - Note Progress Note: Renal Follow up for SILAS Pt seen and examined at the bedside no acute complaints s/p IR biopsy good urine output dutton in place Vital Signs Temperature 97.8 F 05/30/17 09:57 Pulse Rate 93 H 05/30/17 12:20 Respiratory Rate 21 05/30/17 12:20 Blood Pressure 158/69 05/30/17 12:20 O2 Sat by Pulse Oximetry (%) 99 05/30/17 12:20 Intake & Output 05/27/17 05/28/17 05/29/17 05/30/17 23:59 23:59 23:59 23:59 Intake Total 2200 590 1766 1359 Output Total 2200 3300 2000 800 Balance 0 -2710 -234 559 Weight 261 lb 6.4 oz 269 lb Gen: awake and alert, hard of hearing CVS: RRR Lungs: CTA, anterior exam Abd: soft NT/ND Ext: No edema, clubbing or cyanosis : no bladder distension, dutton catheter in place CBC, BMP 05/30/17 06:40 05/30/17 06:40 Laboratory Tests 05/30/17 06:40 Albumin 3.2 L Current Medications Apixaban (Eliquis -) 5 mg PO BID [facility] Artificial Tears (Artificial Tears) 1 drop OU BID PRN PRN Reason: DRY EYES Diltiazem HCl (Cardizem Cd -) 240 mg PO DAILY [facility] Last Admin: 05/30/17 10:23 Dose: 240 mg Hydralazine HCl (Apresoline -) 25 mg PO TID [facility] Last Admin: 05/30/17 13:36 Dose: 25 mg Sodium Chloride (Normal Saline -) 1,000 mls @ 50 mls/hr IV ASDIR [facility] Last Admin: 05/30/17 13:30 Dose: 50 mls/hr Nicotine (Nicoderm Patch -) 14 mg TD DAILY [facility] Last Admin: 05/30/17 13:37 Dose: 14 mg Nystatin (Nystatin Oral Suspension -) 500,000 units PO Q6HPO [facility] Last Admin: 05/30/17 13:36 Dose: 500,000 units Pantoprazole Sodium (Protonix -) 40 mg PO DAILY [facility] Last Admin: 05/30/17 13:37 Dose: 40 mg Polyethylene Glycol (Miralax (For Daily Use) -) 17 gm PO DAILY [facility] Last Admin: 05/30/17 13:37 Dose: 17 grams Potassium Chloride (K-Dur -) 40 meq PO DAILY [facility] Last Admin: 05/30/17 13:37 Dose: 40 meq Potassium Phos/Sodium Phos (Phos-Nak Packet -) 1 packet PO TID [facility] Stop: 05/31/17 14:01 Last Admin: 05/30/17 13:38 Dose: 1 packet A/P 76 year old gentleman with PMhx of Afib on Coumadin, COPD, Hyperlipidemia, DM Type 2, Hypertension who presented with AMS and found to have BUN/Cr of 109/11 and K of 7.8. 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 Renal function much improved continue gentle IVF HD catheter removed continue to trend BUN/Cr #Hypophosphatemia s/p neutraphos good oral intake check levels in am #Bladder/Prostate mass f/u biopsy results Donta Carmona Problem List - Problems (1) Acute renal failure Code(s): N17.9 - ACUTE KIDNEY FAILURE, UNSPECIFIED Qualifiers: Acute renal failure type: unspecified Qualified Code(s): N17.9 - Acute kidney failure, unspecified (2) Atrial fibrillation with RVR Code(s): I48.91 - UNSPECIFIED ATRIAL FIBRILLATION (3) HTN (hypertension) Code(s): I10 - ESSENTIAL (PRIMARY) HYPERTENSION Qualifiers: Hypertension type: essential hypertension Qualified Code(s): I10 - Essential (primary) hypertension (4) Hyperkalemia Code(s): E87.5 - HYPERKALEMIA (5) Uremia Code(s): N19 - UNSPECIFIED KIDNEY FAILURE (6) Metabolic acidosis Code(s): E87.2 - ACIDOSIS (7) Hyperphosphatemia Code(s): E83.39 - OTHER DISORDERS OF PHOSPHORUS METABOLISM (8) Hyponatremia Code(s): E87.1 - HYPO-OSMOLALITY AND HYPONATREMIA
[2017-05-30] MEDS: APIXABAN 5 MG TABLET PO SCH ×2 (14:41→22:54)
[2017-05-31] MEDS: NYSTATIN 500,000 UNITS/5 ML SUSPENSION PO SCH ×4 (00:15→17:46)
[2017-05-31] MEDS: hydrALAZINE HCL 25 MG TABLET (FP) PO SCH ×2 (05:22→16:41)
[2017-05-31] MEDS: NAPH,MB-DB/K PH,MBDB POWDER PACKET PO SCH ×2 (05:22→20:24)
[2017-05-31] MEDS ORDERED: PT OWN MED DRAWER 7, Y5N ONE ×2 (09:01→09:18)
[2017-05-31 09:36] LABS: ANION GAP 8 (8-16); CALCIUM 9.4 mg/dL (8.5-10.1); CO2 25 mmol/L (21-32); CREATININE 1.2 mg/dL (0.7-1.3); GLUCOSE,RANDOM 99 mg/dL (74-106); MAGNESIUM 2.2 mg/dL (1.8-2.4)
[2017-05-31] MEDS: APIXABAN 5 MG TABLET PO SCH ×2 (10:22→21:57)
[2017-05-31] MEDS: POTASSIUM CHLORIDE TABS 20 MEQ TABLET.ER (FP) PO SCH (10:22)
[2017-05-31] MEDS: PANTOPRAZOLE 40 MG TABLET (FP) PO SCH (10:23)
[2017-05-31] MEDS: NICOTINE 14 MG/24 HOURS TOPICAL PATCH TD SCH (10:23)
--- NOTE | 2017-05-31 10:25 | PN ---
Progress Note, Physician History of Present Illness: Rate-controlled afib, denies chest pain or dyspnea. Sensorium improved to baseline, post CT-guided biopsy of pelvic mass. - Current Medication List Current Medications: Active Medications Apixaban (Eliquis -) [address] [facility] Last Admin: 05/30/17 22:54 Dose: 5 mg Artificial Tears (Artificial Tears) 1 drop OU BID PRN PRN Reason: DRY EYES Diltiazem HCl (Cardizem Cd -) [address] [facility] Last Admin: 05/30/17 10:23 Dose: 240 mg Hydralazine HCl (Apresoline -) [address] [facility] Last Admin: 05/31/17 05:22 Dose: 25 mg Sodium Chloride (Normal Saline -) 1,000 mls @ 50 mls/hr IV ASDIR [facility] Last Admin: 05/30/17 13:30 Dose: 50 mls/hr Nicotine (Nicoderm Patch -) [address] [facility] Last Admin: 05/30/17 13:37 Dose: 14 mg Nystatin (Nystatin Oral Suspension -) 500,[address] [facility] Last Admin: 05/31/17 05:22 Dose: 500,000 units Pantoprazole Sodium (Protonix -) [address] [facility] Last Admin: 05/30/17 13:37 Dose: 40 mg Polyethylene Glycol (Miralax (For Daily Use) -) [address] [facility] Last Admin: 05/30/17 13:37 Dose: 17 grams Potassium Chloride (K-Dur -) [address] [facility] Last Admin: 05/30/17 13:37 Dose: 40 meq Potassium Phos/Sodium Phos (Phos-Nak Packet -) [address] [facility] Stop: 05/31/17 14:01 Last Admin: 05/31/17 05:22 Dose: 1 packet - Objective Vital Signs: Vital Signs Temperature 97.6 F 05/31/17 06:00 Pulse Rate 88 05/31/17 06:00 Respiratory Rate 18 05/31/17 06:00 Blood Pressure 127/92 05/31/17 06:00 O2 Sat by Pulse Oximetry (%) 99 05/30/17 22:00 Constitutional: Yes: No Distress, Calm Neck: Yes: Supple Cardiovascular: Yes: Pulse Irregular Respiratory: Yes: Regular, Diminished Gastrointestinal: Yes: Normal Bowel Sounds, Soft Edema: No Labs: CBC, BMP 05/30/17 06:40 05/31/17 08:30 INR, PTT INR 1.08 (0.82-1.09) 05/30/17 06:40 Problem List - Problems (1) Acute renal failure Code(s): N17.9 - ACUTE KIDNEY FAILURE, UNSPECIFIED Qualifiers: Acute renal failure type: unspecified Qualified Code(s): N17.9 - Acute kidney failure, unspecified (2) Atrial fibrillation with RVR Code(s): I48.91 - UNSPECIFIED ATRIAL FIBRILLATION (3) Diastolic CHF Code(s): I50.30 - UNSPECIFIED DIASTOLIC (CONGESTIVE) HEART FAILURE Qualifiers : Congestive heart failure chronicity: chronic Qualified Code(s): I50.32 - Chronic diastolic (congestive) heart failure (4) HTN (hypertension) Code(s): I10 - ESSENTIAL (PRIMARY) HYPERTENSION Qualifiers: Hypertension type: essential hypertension Qualified Code(s): I10 - Essential (primary) hypertension (5) Hydronephrosis Code(s): N13.30 - UNSPECIFIED HYDRONEPHROSIS Qualifiers: Hydronephrosis type: unspecified Qualified Code(s): N13.30 - Unspecified hydronephrosis (6) Pelvic mass Code(s): R19.00 - INTRA-ABD AND PELVIC SWELLING, MASS AND LUMP, UNSP SITE (7) Uremia Code(s): N19 - UNSPECIFIED KIDNEY FAILURE Assessment/Plan Echocardiography revealed normal LV size and systolic function with no significant valvular pathology 1. Post obstructive acute renal failure and hyperkalemia requiring HD post tunneled catheter removal 2. CAD angina pectoris, stable 3. Diastolic LV dysfunction with class 0-I NYHA classification LV congestive heart failure, euvolemic 4. Permanent atrial fibrillation on chronic A/C with Coumadin, transient supra- therapeutic INR, currently off Heparin gtt pre-procedure 5. Post Digoxin toxicity 6. Hyperkalemia, resolved 7. Altered mental status/toxic metabolic encephalopathy, resolved 8. Hypertension 9. 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 Monitor renal recovery and urine output off HD 2. Continue Cardizem CD 240 qd 3. As outlined in prior notes if additional atrial fibrillation rate control is desired add B-Blockers 4. Consider change Hydralazine 25 tid to JULIET-I/ARB if agreeable with renal 5. Started on Eliquis 5 bid, reasonable as renal function stabilizing 6. As outlined in prior notes defer resumption of Digoxin therapy at this point 7. F/u pathology to assess etiology of pelvic mass
[2017-05-31] MEDS: POLYETHYLENE GLYCOL 3350 119 GM BTL PO SCH (10:34)
[2017-05-31] MEDS: LORazepam 2 MG/ML SDV VIAL IVPUSH PRN ×2 (12:07→20:32)
--- NOTE | 2017-05-31 13:02 | PN ---
Progress Note (short form) - Note Progress Note: Renal Follow up for SILAS Pt seen and examined at the bedside Nursing staff reports that pt was very agigated yesterday and this am and required sedation pt is awake and alert but somewhat confused no sob, chest pain, abd pain, dutton in place with bloody urine Vital Signs Temperature 97.6 F 05/31/17 06:00 Pulse Rate 88 05/31/17 06:00 Respiratory Rate 18 05/31/17 06:00 Blood Pressure 127/92 05/31/17 06:00 O2 Sat by Pulse Oximetry (%) 99 05/30/17 22:00 Intake & Output 05/28/17 05/29/17 05/30/17 05/31/17 23:59 23:59 23:59 23:59 Intake Total 590 1766 2559 1000 Output Total 3300 2000 2300 700 Balance -2710 -234 259 300 Weight 261 lb 6.4 oz 269 lb 258 lb 9.6 oz Gen: awake and alert, hard of hearing CVS: RRR Lungs: CTA, anterior exam Abd: soft NT/ND Ext: No edema, clubbing or cyanosis : no bladder distension, dutton catheter in place CBC, BMP 05/30/17 06:40 05/31/17 08:30 Laboratory Tests 05/31/17 08:30 Phosphorus 3.0 D Magnesium 2.2 Current Medications Apixaban (Eliquis -) 5 mg PO BID [facility] Last Admin: 05/31/17 10:22 Dose: 5 mg Artificial Tears (Artificial Tears) 1 drop OU BID PRN PRN Reason: DRY EYES Diltiazem HCl (Cardizem Cd -) 240 mg PO DAILY [facility] Last Admin: 05/31/17 10:22 Dose: 240 mg Hydralazine HCl (Apresoline -) 25 mg PO TID [facility] Last Admin: 05/31/17 05:22 Dose: 25 mg Sodium Chloride (Normal Saline -) 1,000 mls @ 50 mls/hr IV ASDIR [facility] Last Admin: 05/30/17 13:30 Dose: 50 mls/hr Lorazepam (Ativan Injection -) 0.5 mg IVPUSH TID PRN PRN Reason: AGITATION Last Admin: 05/31/17 12:07 Dose: 0.5 mg Nicotine (Nicoderm Patch -) 14 mg TD DAILY [facility] Last Admin: 05/31/17 10:23 Dose: 14 mg Nystatin (Nystatin Oral Suspension -) 500,000 units PO Q6HPO [facility] Last Admin: 05/31/17 05:22 Dose: 500,000 units Pantoprazole Sodium (Protonix -) 40 mg PO DAILY [facility] Last Admin: 05/31/17 10:23 Dose: 40 mg Polyethylene Glycol (Miralax (For Daily Use) -) 17 gm PO DAILY [facility] Last Admin: 05/31/17 10:34 Dose: 17 grams Potassium Chloride (K-Dur -) 40 meq PO DAILY [facility] Last Admin: 05/31/17 10:22 Dose: 40 meq Potassium Phos/Sodium Phos (Phos-Nak Packet -) 1 packet PO TID [facility] Stop: 05/31/17 14:01 Last Admin: 05/31/17 05:22 Dose: 1 packet A/P 76 year old gentleman with PMhx of Afib on Coumadin, COPD, Hyperlipidemia, DM Type 2, Hypertension who presented with AMS and found to have BUN/Cr of 109/11 and K of 7.8. 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 Renal function is improve and stable maintain Dutton as per urology recommendations given likelihood that pt is going to be inpatient for a few more days can attempt trial of ACEi (discussed with cardiology) Trend BUN/Cr and electrolytes #Hypophosphatemia s/p neutraphos levels improved encouraged oral intake #Bladder/Prostate mass f/u biopsy results #AMS/Agitation No evidence of uremia will check ammonia levels Neurology evaluation Donta Carmona Problem List - Problems (1) Acute renal failure Code(s): N17.9 - ACUTE KIDNEY FAILURE, UNSPECIFIED Qualifiers: Acute renal failure type: unspecified Qualified Code(s): N17.9 - Acute kidney failure, unspecified (2) Atrial fibrillation with RVR Code(s): I48.91 - UNSPECIFIED ATRIAL FIBRILLATION (3) HTN (hypertension) Code(s): I10 - ESSENTIAL (PRIMARY) HYPERTENSION Qualifiers: Hypertension type: essential hypertension Qualified Code(s): I10 - Essential (primary) hypertension (4) Hyperkalemia Code(s): E87.5 - HYPERKALEMIA (5) Uremia Code(s): N19 - UNSPECIFIED KIDNEY FAILURE (6) Metabolic acidosis Code(s): E87.2 - ACIDOSIS (7) Hyperphosphatemia Code(s): E83.39 - OTHER DISORDERS OF PHOSPHORUS METABOLISM (8) Hyponatremia Code(s): E87.1 - HYPO-OSMOLALITY AND HYPONATREMIA
--- NOTE | 2017-05-31 15:59 | CONSULT ---
Consult - text type - Consultation Consultation Note: Neurology History of Present Illness The patient is a 76 yo M poor historian with a past medical history significant for chronic AF on anticoagulation, emphysema with long history of cigarette smoking, diverticulitis, hypercholesterolemia, type 2 DM and HTN who presents with confusion. As per the patients daughter, she went to check on him after she didnt hear from him. The patient states he lives alone. He endorses a decreased appetite. He was admitted and had extensive course with acute renal failure and now with altered mental status. He has not been aware of location, date, and at bedside he was confused. CT head repeated and did not show acute changes. I reviewed MRI brain and showed moderate atrophy but no acute changes. He has Afib on Coumadin. Ammonia level checked and was normal. In reviewing chart, his CXR and UA are more than a few days old and recommended rechecking these. Seems to be systemic and global altered mental status, no focal deficits noted. Past History - Past Medical History Cardiac Disorders: Yes (A-FIB) Diabetes: Yes (NIDDM) GI Disorders: (divertivculitis) Hypercholesterolemia: Yes - Psycho/Social/Smoking Cessation Hx Anxiety: No Suicidal Ideation: No Smoking History: Current every day smoker Have you smoked in the past 12 months: Yes Number of Cigarettes Smoked Daily: 20 Information on smoking cessation initiated: No 'Breaking Loose' booklet given: 09/28/14 Hx Alcohol Use: No Drug/Substance Use Hx: No Substance Use Type: None - Past Medical History Allergies/Adverse Reactions: Allergies Allergy/AdvReac Type Severity Reaction Status Date / Time amoxicillin trihydrate Allergy Mild Verified 05/17/17 23:52 [From Augmentin] potassium clavulanate AdvReac Unknown Verified 05/17/17 23:52 [From Augmentin] Home Medication List Medication Instructions Recorded Confirmed Type Atorvastatin Calcium DAILY 05/20/17 History Digoxin DAILY 05/20/17 History Diltiazem HCl [Cartia Xt] DAILY 05/20/17 History Gemfibrozil DAILY 05/20/17 History Metoprolol Tartrate BID 05/20/17 History Burley-3 Acid Ethyl Esters [Lovaza] BID 05/20/17 History Ranitidine [Zantac -] BID 05/20/17 History Warfarin Sodium [Coumadin] DAILY 05/20/17 History Active Medications Generic Name Dose Route Start Last Admin Trade Name Freq PRN Reason Stop Dose Admin Apixaban 5 mg 05/30/17 13:45 05/31/17 10:22 Eliquis - PO 5 mg BID [facility] Administration Artificial Tears 1 drop 05/24/17 18:36 Artificial Tears OU BID PRN DRY EYES Diltiazem HCl 240 mg 05/25/17 10:00 05/31/17 10:22 Cardizem Cd - PO 240 mg DAILY [facility] Administration Hydralazine HCl 25 mg 05/24/17 22:00 05/31/17 05:22 Apresoline - PO 25 mg TID [facility] Administration Sodium Chloride 1,000 mls @ 50 mls/hr 05/30/17 10:17 05/30/17 13:30 Normal Saline - IV 50 mls/hr ASDIR [facility] Administration Lorazepam 0.5 mg 05/31/17 10:24 05/31/17 12:07 Ativan Injection - IVPUSH 0.5 mg TID PRN Administration AGITATION Nicotine 14 mg 05/25/17 10:00 05/31/17 10:23 Nicoderm Patch - TD 14 mg DAILY [facility] Administration Nystatin 500,000 units 05/25/17 00:00 05/31/17 14:31 Nystatin Oral Suspension - PO Not Given Q6HPO [facility] Pantoprazole Sodium 40 mg 05/25/17 10:00 05/31/17 10:23 Protonix - PO 40 mg DAILY [facility] Administration Polyethylene Glycol 17 gm 05/25/17 13:45 05/31/17 10:34 Miralax (For Daily Use) - PO 17 grams DAILY [facility] Administration Potassium Chloride 40 meq 05/29/17 11:03 05/31/17 10:22 K-Dur - PO 40 meq DAILY [facility] Administration Review of Systems - Review of Systems Able to Perform ROS?: No, not cooperative *Physical Exam Vital Signs Temperature 97.2 F L 05/31/17 15:52 Pulse Rate 85 05/31/17 15:52 Respiratory Rate 20 05/31/17 15:52 Blood Pressure 155/59 05/31/17 15:52 O2 Sat by Pulse Oximetry (%) 99 05/30/17 22:00 Well developed, well nourished. alert to person and place but not time. Afebrile. No acute distress. HEENT: Normocephalic, atraumatic. PERRLA, EOMI. No conjunctival pallor. Sclera are non- icteric. Moist mucous membranes. Oropharynx is clear. NECK: Supple. Full ROM. No JVD. Carotid pulses 2+ and symmetric, without bruits. No thyromegaly. No lymphadenopathy. CARDIOVASCULAR: Regular rate and rhythm. No murmurs, rubs, or gallops. Distal pulses are 2+ and symmetric. PULMONARY: No evidence of respiratory distress. Bilateral crackles. No wheezing, rales or rhonchi. ABDOMINAL: Soft. Non-tender. Non-distended. No rebound or guarding. No organomegaly. Normoactive bowel sounds. Old surgical scars on abdomen. MUSCULOSKELETAL Normal range of motion at all joints. No bony deformities or tenderness. No CVA tenderness. EXTREMITIES: No cyanosis. No clubbing. No edema. No calf tenderness. SKIN: Warm and dry. Normal capillary refill. No rashes. No jaundice. NEUROLOGICAL: No following commands, moving all extremities and responds to questions, CN intact, sensory nml CBCD WBC 9.6 K/mm3 (4.0-10.0) 05/30/17 06:40 RBC 3.96 M/mm3 (4.00-5.60) L 05/30/17 06:40 Hgb 12.7 GM/dL (11.7-16.9) 05/30/17 06:40 Hct 36.6 % (35.4-49) 05/30/17 06:40 MCV 92.4 fl (80-96) 05/30/17 06:40 MCHC 34.7 g/dl (32.0-35.9) 05/30/17 06:40 RDW 13.3 % (11.9-15.9) 05/30/17 06:40 Plt Count 247 K/MM3 (134-434) 05/30/17 06:40 MPV 8.4 fl (7.5-11.1) 05/30/17 06:40 CMP Sodium 142 mmol/L (136-145) 05/31/17 08:30 Potassium 4.0 mmol/L (3.5-5.1) 05/31/17 08:30 Chloride 109 mmol/L (98-107) H 05/31/17 08:30 Carbon Dioxide 25 mmol/L (21-32) 05/31/17 08:30 Anion Gap 8 (8-16) 05/31/17 08:30 BUN 12 mg/dL (7-18) 05/31/17 08:30 Creatinine 1.2 mg/dL (0.7-1.3) 05/31/17 08:30 Creat Clearance w eGFR 45.75 (>60) 05/30/17 06:40 Calcium 9.4 mg/dL (8.5-10.1) 05/31/17 08:30 Total Bilirubin 0.8 mg/dL (0.2-1.0) 05/30/17 06:40 AST 33 U/L (15-37) 05/30/17 06:40 ALT 58 U/L (12-78) 05/30/17 06:40 Alkaline Phosphatase 71 U/L (45-117) 05/30/17 06:40 Total Protein 6.2 g/dl (6.4-8.2) L 05/30/17 06:40 Albumin 3.2 g/dl (3.4-5.0) L 05/30/17 06:40 - RADIOLOGY CT head and MRI brain reviewed Medical Decision Making 76 yo M poor historian with a past medical history significant for chronic AF on anticoagulation, emphysema with long history of cigarette smoking, diverticulitis, hypercholesterolemia, type 2 DM and HTN who presents with confusion. As per the patients daughter, she went to check on him after she didnt hear from him. The patient states he lives alone. He endorses a decreased appetite. He was admitted and had extensive course with acute renal failure and now with altered mental status. He has not been aware of location, date, and at bedside he was confused. CT head repeated and did not show acute changes. I reviewed MRI brain and showed moderate atrophy but no acute changes. He has Afib on Coumadin. Ammonia level checked and was normal. In reviewing chart, his CXR and UA are more than a few days old and recommended rechecking these. Seems to be systemic and global altered mental status, no focal deficits noted. Continue blood pressure control, follow up CXR and UA, ordered. Continue monitoring renal function, follow up television production assistant rec'd. Continue hydration and adequate PO intake.
--- NOTE | 2017-05-31 16:26 | PN ---
Progress Note, Physician Chief Complaint: AMS, hyperkalemia, Acute renal failure History of Present Illness: The patient is a 76 yo M poor historian with a past medical history significant for chronic AF on anticoagulation, emphysema with long history of cigarette smoking, diverticulitis, hyperlipidemia, type 2 DM and HTN who presented to [facility] ED with confusion. As per patient's tenant in the room, his daughter Fidel called the tenant to check on his father because she had not spoken to him over 24 hours. After the tenant went in the apartment to check on the patient, patient was lying in bed, lethargic but responsive, saying he doesn't feel good. Tenant called the ambulance, patient was awake and alert and was able to transfer himself. After coming to the ER, he slowly deteriorated. He was found to be in acute renal failure, emergent dialysis was needed. Nephrology was called in. NAD, no pain in bed, awake, alert but confused, wasn't able to recognize his daughter, knows month and president. Was agitated yesterday and this AM as per Nursing renal function normalized started on Eliquis still bleeding from dutton - Current Medication List Current Medications: Active Medications Apixaban (Eliquis -) 5 mg PO BID [facility] Last Admin: 05/31/17 10:22 Dose: 5 mg Artificial Tears (Artificial Tears) 1 drop OU BID PRN PRN Reason: DRY EYES Diltiazem HCl (Cardizem Cd -) 240 mg PO DAILY [facility] Last Admin: 05/31/17 10:22 Dose: 240 mg Sodium Chloride (Normal Saline -) 1,000 mls @ 50 mls/hr IV ASDIR [facility] Last Admin: 05/30/17 13:30 Dose: 50 mls/hr Lorazepam (Ativan Injection -) 0.5 mg IVPUSH TID PRN PRN Reason: AGITATION Last Admin: 05/31/17 12:07 Dose: 0.5 mg Nicotine (Nicoderm Patch -) 14 mg TD DAILY [facility] Last Admin: 05/31/17 10:23 Dose: 14 mg Nystatin (Nystatin Oral Suspension -) 500,000 units PO Q6HPO [facility] Last Admin: 05/31/17 14:31 Dose: Not Given Pantoprazole Sodium (Protonix -) 40 mg PO DAILY [facility] Last Admin: 05/31/17 10:23 Dose: 40 mg Polyethylene Glycol (Miralax (For Daily Use) -) 17 gm PO DAILY [facility] Last Admin: 05/31/17 10:34 Dose: 17 grams Potassium Chloride (K-Dur -) 40 meq PO DAILY [facility] Last Admin: 05/31/17 10:22 Dose: 40 meq - Objective Vital Signs: Vital Signs Temperature 97.2 F L 05/31/17 15:52 Pulse Rate 85 05/31/17 15:52 Respiratory Rate 20 05/31/17 15:52 Blood Pressure 155/59 05/31/17 15:52 O2 Sat by Pulse Oximetry (%) 99 05/30/17 22:00 Constitutional: Yes: Well Nourished, No Distress, Calm Cardiovascular: Yes: Pulse Irregular Respiratory: Yes: Regular Gastrointestinal: Yes: Normal Bowel Sounds Musculoskeletal: Yes: WNL Extremities: Yes: WNL Edema: No Peripheral Pulses WNL: Yes Neurological: Yes: Alert, Confusion Psychiatric: Yes: Alert Labs: CBC, BMP 05/30/17 06:40 05/31/17 08:30 INR, PTT INR 1.08 (0.82-1.09) 05/30/17 06:40 Problem List - Problems (1) Acute renal failure Assessment/Plan: -BUN/Cr normalized -gentle IV fluids -s/p BL renal stents -hematuria -paged urology, no calls returned by covering physician. Code(s): N17.9 - ACUTE KIDNEY FAILURE, UNSPECIFIED Qualifiers: Acute renal failure type: unspecified Qualified Code(s): N17.9 - Acute kidney failure, unspecified (2) Atrial fibrillation with RVR Assessment/Plan: -chronic -started on Eliquis BID -on Cardizem po, Metoprolol not indicated at this time,rate is controlled Code(s): I48.91 - UNSPECIFIED ATRIAL FIBRILLATION (3) Generalized weakness Code(s): R53.1 - WEAKNESS (4) HTN (hypertension) Assessment/Plan: -controlled -on Cardizem -D/C hydralazine as per cardiology, monitor BP, if rises, may start lisinopril 25 mg po daily Code(s): I10 - ESSENTIAL (PRIMARY) HYPERTENSION Qualifiers: Hypertension type: essential hypertension Qualified Code(s): I10 - Essential (primary) hypertension (5) Hydronephrosis Assessment/Plan: -renal fxn normalized post stents Code(s): N13.30 - UNSPECIFIED HYDRONEPHROSIS Qualifiers: Hydronephrosis type: unspecified Qualified Code(s): N13.30 - Unspecified hydronephrosis (6) Pelvic mass Assessment/Plan: -Pending pelvic mass biopsy Code(s): R19.00 - INTRA-ABD AND PELVIC SWELLING, MASS AND LUMP, UNSP SITE (7) Confusion Assessment/Plan: -CT head negative -Neurology consult Code(s): R41.0 - DISORIENTATION, UNSPECIFIED Assessment/Plan see problem list spoke to daughter at bedside at length
[2017-05-31] MEDS: SODIUM CHLORIDE 1,000 ML IV SCH (17:46)
[2017-06-01] MEDS ORDERED: DOPamine HCL 400 MG/10 ML VIAL ONE (04:30)
[2017-06-01] MEDS ORDERED: RAPID SEQUENCE INTUBATION KIT NR ONE (04:30)
--- NOTE | 2017-06-01 04:51 | HOSP ---
Subjective - Review of Symptoms Events since last encounter: Rapid response called at 4:22. Team went to assess the patient. Found the patient in distress and unresponsive with paradoxical rapid breathing and respiratory distress. The decision was made to intubate the patient. He was transferred to ICU and intubated successfully. Stat labs and CXR were ordered, and ICU team assumed care of the patient. Physical Examination Vital Signs: Vital Signs Temperature 98.1 F 05/31/17 18:00 Pulse Rate 90 06/01/17 04:20 Respiratory Rate 26 H 06/01/17 04:20 Blood Pressure 120/42 06/01/17 04:20 O2 Sat by Pulse Oximetry (%) 97 05/31/17 22:00 Labs: CBC, BMP 05/30/17 06:40 05/31/17 08:30 Visit type - Emergency Visit Emergency Visit: No - New Patient This patient is new to me today: No - Critical Care Critical Care patient: No
--- NOTE | 2017-06-01 04:54 | PROC ---
Intubation - Intubation Reason for Intubation: Airway Protection Intubation Method: orotracheal Blade used: Mac Tube Size (cm): 8.0 Tube position @ lip (cm): 24 Tube position confirmed by: Direct visualization, CO2 detector, Chest x-ray, Breath sounds Breath Sounds after Intubation: equal Post Intubation Xray: Yes
[2017-06-01] MEDS: FENTANYL INJECTION 500 MCG in DEXTROSE 5%-WATER - 90 ML IJ SCH (04:55)
[2017-06-01] MEDS ORDERED: PROPOFOL 100 ML ONE ×3 (04:56→20:45)
[2017-06-01] MEDS ORDERED: SODIUM CHLORIDE 1,000 ML IV STA (04:58)
[2017-06-01] MEDS ORDERED: SUCCINYLCHOLINE CHLORIDE 200 MG/10 ML VIAL IVPUSH ONE (04:58)
[2017-06-01] MEDS ORDERED: PROPOFOL 200 MG/20 ML VIAL IVPUSH ONE (04:58)
[2017-06-01] MEDS: PROPOFOL 100 ML IVPUSH SCH ×3 (05:00→23:13)
--- NOTE | 2017-06-01 05:10 | CONSULT ---
Consult - text type - Consultation Consultation Note: PULMONARY/CRITICAL CARE CONSULT CC: hypoxic respiratory failure HPI: See prior consult notes. All unchanged other than he was found unresponsive and hypoxic this morning. SpO2 was in 80s on NRB Oxygen. He was brought to the ICU where he was intubated. His daughter was notified, but lives in [facility]. She wanted him to be intubated, but states that he would never want a prolonged course of mechanical ventilation or other forms of life support. Post-intubation CXR shows new retrocardiac opacity, ?aspiration event. He had a CXR yesterday that showed no infiltrate. PMH/PSH: as in prior notes ROS: unable to obtain Current Medications Apixaban (Eliquis -) 5 mg PO BID [facility] Last Admin: 05/31/17 21:57 Dose: 5 mg Artificial Tears (Artificial Tears) 1 drop OU BID PRN PRN Reason: DRY EYES Diltiazem HCl (Cardizem Cd -) 240 mg PO DAILY [facility] Last Admin: 05/31/17 10:22 Dose: 240 mg Sodium Chloride (Normal Saline -) 1,000 mls @ 50 mls/hr IV ASDIR [facility] Last Admin: 05/31/17 17:46 Dose: 50 mls/hr Propofol (Diprivan -) 100 mls @ 3.519 mls/hr IVPUSH TITR [facility]; 5 MCG/KG/MIN PRN Reason: Protocol Fentanyl 500 mcg/ Dextrose 100 mls @ 10 mls/hr IJ TITR [facility] PRN Reason: 50 MCG/HR Sodium Chloride (Normal Saline -) 1,000 mls @ 1,000 mls/hr IV ASDIR [facility] Stop: 06/01/17 05:57 Lorazepam (Ativan Injection -) 0.5 mg IVPUSH TID PRN PRN Reason: AGITATION Last Admin: 05/31/17 20:32 Dose: 0.5 mg Nicotine (Nicoderm Patch -) 14 mg TD DAILY [facility] Last Admin: 05/31/17 10:23 Dose: 14 mg Nystatin (Nystatin Oral Suspension -) 500,000 units PO Q6HPO [facility] Last Admin: 05/31/17 17:46 Dose: Not Given Pantoprazole Sodium (Protonix -) 40 mg PO DAILY [facility] Last Admin: 05/31/17 10:23 Dose: 40 mg Polyethylene Glycol (Miralax (For Daily Use) -) 17 gm PO DAILY [facility] Last Admin: 05/31/17 10:34 Dose: 17 grams Potassium Chloride (K-Dur -) 40 meq PO DAILY [facility] Last Admin: 05/31/17 10:22 Dose: 40 meq Propofol (Diprivan -) 100 mcg IVPUSH ONCE ONE Stop: 06/01/17 04:59 Succinylcholine Chloride (Quelicin -) 100 mg IVPUSH ONCE ONE Stop: 06/01/17 04:59 Vital Signs Temp 98.1 F 05/31/17 18:00 Pulse 90 06/01/17 04:20 Resp 14 06/01/17 04:58 BP 120/42 06/01/17 04:20 Pulse Ox 97 05/31/17 22:00 Intake & Output 05/31/17 05/31/17 06/01/17 06:59 18:59 06:59 Intake Total 1800 200 500 Output Total 1600 400 600 Balance 200 -200 -100 Weight 117.299 kg Intake: IV 1200 500 1/2 Normal Saline 1,000 350 ml @ 90 mls/hr IV ASDIR [facility] Rx#:[id number] Normal Saline - 1,000 ml 850 500 @ 50 mls/hr IV ASDIR [facility] Rx#:[id number] Oral 600 200 Output: Urine 1600 400 600 [place] 1600 400 600 Other: Voiding Method Indwelling Catheter Indwelling Catheter Indwelling Catheter Weight Measurement Method Built in [facility] EXAM: neuro: unresponsive HEENT: pinpoint, reactive lungs: b/l rhonchi, diminished heart: irregular abd: obese, soft, non-tender ext: no edema, warm skin: warm, dry CBC, BMP 05/30/17 06:40 05/31/17 08:30 CXR: new retrocardiac opacity ASSESSMENT/PLAN: Acute hypoxic respiratory failure in the setting of poor mental status likely an aspiration event Post Obstructive Acute Kidney Injury requiring HD s/p ureteral stent placement/bladder biopsy LV Diastolic Dysfunction CAD Atrial Fibrillation HTN DM COPD Hydronephrosis - sedation, mechanical ventilation - check sputum culture - consider abx, but likely an aspiration chemical pneumonitis and not PNA, prior CXR showed no PNA - daily SBT - gentle hydration - f/u biopsy of pelvic mass - monitor urine output, creatinine - f/u pathology - rate controlled - continue anticoagulation Critically Ill - CCT 45min not including procedures Thank you for this interesting consult Baltazar Colabraro Pulshikha/CC TECH[employer]ICAL SALES ADVISOR
--- NOTE | 2017-06-01 05:17 | PROC ---
Intubation - Intubation Reason for Intubation: Respiratory Failure, Airway Protection, Ventilatory Failure Time of Intubation: 04:50 Intubation Method: orotracheal Blade used: Mac Tube Size (cm): 8.0 Tube position @ lip (cm): 24 Tube position confirmed by: Direct visualization, CO2 detector, Chest x-ray, Breath sounds Breath Sounds after Intubation: equal Post Intubation Xray: Yes Remarks: Arrived from floor with SpO2 of 82% on NRB, completely obstructing and unresponsive. Pre-oxygenated with jaw thrust, OPA and BVM with 100% Oxygen, easy 1 hand mask. RSI with Propofol 100mg and Succinylcholine 100mg. I let the medicine resident perform DLx1 with MAC 3 blade, g1v, 8.0 ETT to 24cm. +EtCO2 and = breath sounds. Post procedure CXR ordered. Sedation ordered.
[2017-06-01] MEDS: NYSTATIN 500,000 UNITS/5 ML SUSPENSION PO SCH ×3 (06:08→18:54)
[2017-06-01 06:44] LABS: BASOPHIL 0.4 % (0-2.0); EOSINOPHIL 0.6 % (0-4.5); MCH 31.8 pg (25.7-33.7); MCHC 33.9 g/dl (32.0-35.9); MEAN CELL VOLUME 93.8 fl (80-96); MEAN PLT VOLUME 8.1 fl (7.5-11.1); NEUTROPHILS 89.5 % (42.8-82.8); PLATELET COUNT 252 K/MM3 (134-434); RDW 13.4 % (11.9-15.9); WHITE BLOOD COUNT 11.3 K/mm3 (4.0-10.0)
[2017-06-01 07:10] LABS: ALBUMIN 2.3 g/dl (3.4-5.0); ALK PHOS 55 U/L (45-117); ANION GAP 5 (8-16); BILIRUBIN,TOTAL 0.4 mg/dL (0.2-1.0); CO2 25 mmol/L (21-32); CREATININE 1.1 mg/dL (0.7-1.3); GLUCOSE,RANDOM 112 mg/dL (74-106); MAGNESIUM 1.6 mg/dL (1.8-2.4); PHOSPHOROUS 4.3 mg/dL (2.5-4.9); SGOT/AST 29 U/L (15-37); SGPT/ALT 53 U/L (12-78); TOT PROT 4.4 g/dl (6.4-8.2)
[2017-06-01 07:20] LABS: CALCIUM 6.7 mg/dL (8.5-10.1)
[2017-06-01] MEDS: POTASSIUM CHLORIDE TABS 20 MEQ TABLET.ER (FP) PO SCH (10:58)
[2017-06-01] MEDS: PANTOPRAZOLE 40 MG TABLET (FP) PO SCH (10:58)
[2017-06-01] MEDS: SODIUM CHLORIDE 0.45% 1,000 ML IV SCH (10:59)
[2017-06-01] MEDS ORDERED: MAGNESIUM SULF 50% (8.12 MEQ/2 ML-1 GM VIAL) IVPB ONE (11:00)
--- NOTE | 2017-06-01 11:17 | PN ---
Progress Note (short form) - Note Progress Note: Renal Follow up for SILAS Pt seen and examined in the ICU overnight events noted pt transfered to ICU for unresponsiveness and hypoxic renal failure pt on vent on 40% FiO2, sedated on propofol on IV NS good urine output with dark urine Vital Signs Temperature 98.1 F 05/31/17 18:00 Pulse Rate 76 06/01/17 10:00 Respiratory Rate 14 06/01/17 10:00 Blood Pressure 101/59 06/01/17 10:00 O2 Sat by Pulse Oximetry (%) 100 06/01/17 10:00 Intake & Output 05/29/17 05/30/17 05/31/17 06/01/17 23:59 23:59 23:59 23:59 Intake Total 1766 2559 1500 1000 Output Total 1999 2300 1700 Balance -234 259 -200 1000 Weight 269 lb 258 lb 9.6 oz 253 lb 8.505 oz Gen: awake and alert, hard of hearing CVS: RRR Lungs: CTA, anterior exam Abd: soft NT/ND Ext: No edema, clubbing or cyanosis : no bladder distension, dutton catheter in place CBC, BMP 06/01/17 05:15 06/01/17 05:15 Current Medications Apixaban (Eliquis -) 5 mg PO BID [facility] Last Admin: 05/31/17 21:57 Dose: 5 mg Artificial Tears (Artificial Tears) 1 drop OU BID PRN PRN Reason: DRY EYES Diltiazem HCl (Cardizem Cd -) 240 mg PO DAILY [facility] Last Admin: 06/01/17 10:58 Dose: 240 mg Propofol (Diprivan -) 100 mls @ 3.519 mls/hr IVPUSH TITR [facility]; 5 MCG/KG/MIN PRN Reason: Protocol Last Titration: 06/01/17 06:00 Dose: 40 mcg/kg/min Fentanyl 500 mcg/ Dextrose 100 mls @ 10 mls/hr IJ TITR [facility] PRN Reason: 50 MCG/HR Last Titration: 06/01/17 06:17 Dose: 50 mcg/hr Sodium Chloride (1/2 Normal Saline) 1,000 mls @ 100 mls/hr IV ASDIR [facility] Last Admin: 06/01/17 10:59 Dose: 100 mls/hr Lorazepam (Ativan Injection -) 0.5 mg IVPUSH TID PRN PRN Reason: AGITATION Last Admin: 05/31/17 20:32 Dose: 0.5 mg Nicotine (Nicoderm Patch -) 14 mg TD DAILY [facility] Last Admin: 05/31/17 10:23 Dose: 14 mg Nystatin (Nystatin Oral Suspension -) 500,000 units PO Q6HPO [facility] Last Admin: 06/01/17 06:08 Dose: Not Given Pantoprazole Sodium (Protonix -) 40 mg PO DAILY [facility] Last Admin: 06/01/17 10:58 Dose: 40 mg Polyethylene Glycol (Miralax (For Daily Use) -) 17 gm PO DAILY [facility] Last Admin: 05/31/17 10:34 Dose: 17 grams Potassium Chloride (K-Dur -) 40 meq PO DAILY [facility] Last Admin: 06/01/17 10:58 Dose: 40 meq A/P 76 year old gentleman with PMhx of Afib on Coumadin, COPD, Hyperlipidemia, DM Type 2, Hypertension who presented with AMS and found to have BUN/Cr of 109/11 and K of 7.8. 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 Renal function stable at this time and pt with good urine output given pt is now hypernatremic will given 1/2 NS Trend BUN/Cr and Na levels #Unresponsiveness/Hypoxia ICU care Check LE US Vent support, weaning as tolerate #Hypophosphatemia no improved #Hypomagnesemia will supplament with IV mag sulfate #Bladder/Prostate mass f/u biopsy results Thank you Donta Carmona Problem List - Problems (1) Acute renal failure Code(s): N17.9 - ACUTE KIDNEY FAILURE, UNSPECIFIED Qualifiers: Acute renal failure type: unspecified Qualified Code(s): N17.9 - Acute kidney failure, unspecified (2) Atrial fibrillation with RVR Code(s): I48.91 - UNSPECIFIED ATRIAL FIBRILLATION (3) HTN (hypertension) Code(s): I10 - ESSENTIAL (PRIMARY) HYPERTENSION Qualifiers: Hypertension type: essential hypertension Qualified Code(s): I10 - Essential (primary) hypertension (4) Hyperkalemia Code(s): E87.5 - HYPERKALEMIA (5) Uremia Code(s): N19 - UNSPECIFIED KIDNEY FAILURE (6) Metabolic acidosis Code(s): E87.2 - ACIDOSIS (7) Hyperphosphatemia Code(s): E83.39 - OTHER DISORDERS OF PHOSPHORUS METABOLISM (8) Hyponatremia Code(s): E87.1 - HYPO-OSMOLALITY AND HYPONATREMIA
[2017-06-01] MEDS: NICOTINE 14 MG/24 HOURS TOPICAL PATCH TD SCH (17:52)
[2017-06-01] MEDS: POLYETHYLENE GLYCOL 3350 119 GM BTL PO SCH (17:53)
[2017-06-01] MEDS: APIXABAN 5 MG TABLET PO SCH ×2 (18:54→21:29)
[2017-06-01] MEDS: SODIUM CHLORIDE 1,000 ML IV SCH (19:43)
--- NOTE | 2017-06-01 20:17 | PN ---
Progress Note, Physician Chief Complaint: pt transfered to ICU for unresponsiveness and hypoxic renal failure History of Present Illness: pt on vent on 40% FiO2, sedated on propofol and fentanyl on IV 1/2 NS @ 100cc/hr good urine output with dark urine - Current Medication List Current Medications: Active Medications Apixaban (Eliquis -) 5 mg PO BID [facility] Last Admin: 06/01/17 18:54 Dose: Not Given Artificial Tears (Artificial Tears) 1 drop OU BID PRN PRN Reason: DRY EYES Diltiazem HCl (Cardizem Cd -) 240 mg PO DAILY [facility] Last Admin: 06/01/17 10:58 Dose: 240 mg Propofol (Diprivan -) 100 mls @ 3.519 mls/hr IVPUSH TITR [facility]; 5 MCG/KG/MIN PRN Reason: Protocol Last Titration: 06/01/17 12:09 Dose: 40 mcg/kg/min Fentanyl 500 mcg/ Dextrose 100 mls @ 10 mls/hr IJ TITR [facility] PRN Reason: 50 MCG/HR Last Titration: 06/01/17 12:09 Dose: 50 mcg/hr Sodium Chloride (1/2 Normal Saline) 1,000 mls @ 100 mls/hr IV ASDIR [facility] Last Admin: 06/01/17 10:59 Dose: 100 mls/hr Lorazepam (Ativan Injection -) 0.5 mg IVPUSH TID PRN PRN Reason: AGITATION Last Admin: 05/31/17 20:32 Dose: 0.5 mg Nicotine (Nicoderm Patch -) 14 mg TD DAILY [facility] Last Admin: 06/01/17 17:52 Dose: Not Given Nystatin (Nystatin Oral Suspension -) 500,000 units PO Q6HPO [facility] Last Admin: 06/01/17 18:54 Dose: 500,000 units Pantoprazole Sodium (Protonix -) 40 mg PO DAILY [facility] Last Admin: 06/01/17 10:58 Dose: 40 mg Polyethylene Glycol (Miralax (For Daily Use) -) 17 gm PO DAILY [facility] Last Admin: 06/01/17 17:53 Dose: 17 grams Potassium Chloride (K-Dur -) 40 meq PO DAILY [facility] Last Admin: 06/01/17 10:58 Dose: 40 meq - Objective Vital Signs: Vital Signs Temperature 99.1 F 06/01/17 20:00 Pulse Rate 96 H 06/01/17 20:00 Respiratory Rate 22 06/01/17 20:00 Blood Pressure 126/74 06/01/17 20:00 O2 Sat by Pulse Oximetry (%) 100 06/01/17 10:00 Constitutional: Yes: Other (Sedated) Eyes: Yes: Conjunctiva Clear HENT: Yes: Normocephalic Cardiovascular: Yes: Regular Rate and Rhythm Respiratory: Yes: Regular, CTA Bilaterally Gastrointestinal: Yes: Normal Bowel Sounds, Soft Edema: No Peripheral Pulses WNL: Yes Labs: CBC, BMP 06/01/17 05:15 06/01/17 05:15 INR, PTT INR 1.08 (0.82-1.09) 05/30/17 06:40 Problem List - Problems (1) Acute renal failure Code(s): N17.9 - ACUTE KIDNEY FAILURE, UNSPECIFIED Qualifiers: Acute renal failure type: unspecified Qualified Code(s): N17.9 - Acute kidney failure, unspecified (2) Hydronephrosis Code(s): N13.30 - UNSPECIFIED HYDRONEPHROSIS Qualifiers: Hydronephrosis type: unspecified Qualified Code(s): N13.30 - Unspecified hydronephrosis Assessment/Plan A/P 76 year old gentleman with PMhx of Afib on Coumadin, COPD, Hyperlipidemia, DM Type 2, Hypertension who presented with AMS and found to have BUN/Cr of 109/11 and K of 7.8. 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
[2017-06-01] MEDS ORDERED: CALCIUM GLUCONATE 10% - 1,000 MG/10 ML VIAL IVPB ONE (20:32)
[2017-06-02] MEDS ORDERED: PROPOFOL 100 ML ONE ×3 (00:10→03:38)
[2017-06-02] MEDS: SODIUM CHLORIDE 0.45% 1,000 ML IV SCH ×2 (02:15→09:59)
[2017-06-02] MEDS: FENTANYL INJECTION 500 MCG in DEXTROSE 5%-WATER - 90 ML IJ SCH ×2 (03:14→08:06)
[2017-06-02 06:35] LABS: BASOPHIL 0.7 % (0-2.0); EOSINOPHIL 4.7 % (0-4.5); MCH 32.1 pg (25.7-33.7); MCHC 34.4 g/dl (32.0-35.9); MEAN CELL VOLUME 93.2 fl (80-96); MEAN PLT VOLUME 8.3 fl (7.5-11.1); NEUTROPHILS 74.4 % (42.8-82.8); PLATELET COUNT 245 K/MM3 (134-434); RDW 13.5 % (11.9-15.9); WHITE BLOOD COUNT 11.9 K/mm3 (4.0-10.0)
[2017-06-02 06:57] LABS: ALBUMIN 2.8 g/dl (3.4-5.0); ALK PHOS 72 U/L (45-117); ANION GAP 6 (8-16); BILIRUBIN,TOTAL 0.7 mg/dL (0.2-1.0); CALCIUM 8.8 mg/dL (8.5-10.1); CO2 28 mmol/L (21-32); CREATININE 1.6 mg/dL (0.7-1.3); GLUCOSE,RANDOM 75 mg/dL (74-106); MAGNESIUM 2.4 mg/dL (1.8-2.4); PHOSPHOROUS 3.4 mg/dL (2.5-4.9); SGOT/AST 36 U/L (15-37); SGPT/ALT 60 U/L (12-78); TOT PROT 5.7 g/dl (6.4-8.2)
[2017-06-02] MEDS: NYSTATIN 500,000 UNITS/5 ML SUSPENSION PO SCH ×3 (08:05→17:29)
[2017-06-02] MEDS: PROPOFOL 100 ML IVPUSH SCH (08:05)
--- NOTE | 2017-06-02 08:34 | PN ---
Progress Note (short form) - Note Progress Note: Renal Follow up for SILAS Pt seen and examined in the ICU awake on the vent on CPAP trial for possible extubation this am denies any pain or sob good urine output via dutton (700cc overnight) Vital Signs Temperature 98.6 F 06/02/17 02:00 Pulse Rate 86 06/02/17 06:00 Respiratory Rate 14 06/02/17 07:24 Blood Pressure 156/86 06/02/17 06:00 O2 Sat by Pulse Oximetry (%) 99 06/01/17 22:00 Intake & Output 05/30/17 05/31/17 06/01/17 06/02/17 23:59 23:59 23:59 23:59 Intake Total 2559 1500 2333 1647 Output Total 2300 1700 400 600 Balance 259 -200 1933 1047 Weight 269 lb 258 lb 9.6 oz 253 lb 8.505 oz 253 lb 12.033 oz Gen: awake and alert, hard of hearing CVS: RRR Lungs: CTA, anterior exam Abd: soft NT/ND Ext: No edema, clubbing or cyanosis : no bladder distension, dutton catheter in place CBC, BMP 06/02/17 05:15 06/02/17 05:15 Laboratory Tests 06/02/17 05:15 Calcium 8.8 D Phosphorus 3.4 D Magnesium 2.4 D Albumin 2.8 L D Current Medications Apixaban (Eliquis -) 5 mg PO BID [facility] Last Admin: 06/01/17 21:29 Dose: 5 mg Artificial Tears (Artificial Tears) 1 drop OU BID PRN PRN Reason: DRY EYES Diltiazem HCl (Cardizem Cd -) 240 mg PO DAILY [facility] Last Admin: 06/01/17 10:58 Dose: 240 mg Propofol (Diprivan -) 100 mls @ 3.519 mls/hr IVPUSH TITR [facility]; 5 MCG/KG/MIN PRN Reason: Protocol Last Titration: 06/02/17 08:16 Dose: 0 mcg/kg/min Fentanyl 500 mcg/ Dextrose 100 mls @ 10 mls/hr IJ TITR [facility] PRN Reason: 50 MCG/HR Last Titration: 06/02/17 08:16 Dose: 0 mcg/hr Sodium Chloride (1/2 Normal Saline) 1,000 mls @ 100 mls/hr IV ASDIR [facility] Last Admin: 06/02/17 02:15 Dose: 100 mls/hr Lorazepam (Ativan Injection -) 0.5 mg IVPUSH TID PRN PRN Reason: AGITATION Last Admin: 05/31/17 20:32 Dose: 0.5 mg Nicotine (Nicoderm Patch -) 14 mg TD DAILY [facility] Last Admin: 06/01/17 17:52 Dose: Not Given Nystatin (Nystatin Oral Suspension -) 500,000 units PO Q6HPO [facility] Last Admin: 06/02/17 08:05 Dose: Not Given Pantoprazole Sodium (Protonix -) 40 mg PO DAILY [facility] Last Admin: 06/01/17 10:58 Dose: 40 mg Polyethylene Glycol (Miralax (For Daily Use) -) 17 gm PO DAILY [facility] Last Admin: 06/01/17 17:53 Dose: 17 grams Potassium Chloride (K-Dur -) 40 meq PO DAILY [facility] Last Admin: 06/01/17 10:58 Dose: 40 meq A/P 76 year old gentleman with PMhx of Afib on Coumadin, COPD, Hyperlipidemia, DM Type 2, Hypertension who presented with AMS and found to have BUN/Cr of 109/11 and K of 7.8. 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 related to transient renal hypoperfusion yesterday urine output remains good BP stable at this time continue IVF hydration with 1/2 NS supportive care, keep MAP >65 #Unresponsiveness/Hypoxia possible extubation this am LE doppler negative supportive care pulmonary follow up #Bladder/Prostate mass f/u biopsy results Thank you Donta Carmona Problem List - Problems (1) Acute renal failure Code(s): N17.9 - ACUTE KIDNEY FAILURE, UNSPECIFIED Qualifiers: Acute renal failure type: unspecified Qualified Code(s): N17.9 - Acute kidney failure, unspecified (2) Atrial fibrillation with RVR Code(s): I48.91 - UNSPECIFIED ATRIAL FIBRILLATION (3) HTN (hypertension) Code(s): I10 - ESSENTIAL (PRIMARY) HYPERTENSION Qualifiers: Hypertension type: essential hypertension Qualified Code(s): I10 - Essential (primary) hypertension (4) Hyperkalemia Code(s): E87.5 - HYPERKALEMIA (5) Uremia Code(s): N19 - UNSPECIFIED KIDNEY FAILURE (6) Metabolic acidosis Code(s): E87.2 - ACIDOSIS (7) Hyperphosphatemia Code(s): E83.39 - OTHER DISORDERS OF PHOSPHORUS METABOLISM (8) Hyponatremia Code(s): E87.1 - HYPO-OSMOLALITY AND HYPONATREMIA
--- NOTE | 2017-06-02 09:26 | PN ---
Progress Note (short form) - Note Progress Note: PULMONARY/CCM Pt seen and examined in the ICU. Remains intubated, mental status improved off sedation. Following commands, tolerating CPAP/PS. Last Vital Signs Temp Pulse Resp BP Pulse Ox 98.6 F 86 14 156/86 99 06/02/17 02:00 06/02/17 06:00 06/02/17 07:24 06/02/17 06:00 06/01/17 22:00 Intake & Output 05/30/17 05/31/17 06/01/17 06/02/17 23:59 23:59 23:59 23:59 Intake Total 2559 1500 2333 1647 Output Total 2300 1700 400 600 Balance 259 -200 1933 1047 Weight 269 lb 258 lb 9.6 oz 253 lb 8.505 oz 253 lb 12.033 oz Gen: intubated, awake Heart: RRR Lung: decreased breath sounds at the bases Abd: soft, nontender Ext: +trace edema CBC, BMP 06/02/17 05:15 06/02/17 05:15 Active Medications Apixaban (Eliquis -) 5 mg PO BID [facility] Last Admin: 06/01/17 21:29 Dose: 5 mg Artificial Tears (Artificial Tears) 1 drop OU BID PRN PRN Reason: DRY EYES Diltiazem HCl (Cardizem Cd -) 240 mg PO DAILY [facility] Last Admin: 06/01/17 10:58 Dose: 240 mg Propofol (Diprivan -) 100 mls @ 3.519 mls/hr IVPUSH TITR [facility]; 5 MCG/KG/MIN PRN Reason: Protocol Last Titration: 06/02/17 08:16 Dose: 0 mcg/kg/min Fentanyl 500 mcg/ Dextrose 100 mls @ 10 mls/hr IJ TITR [facility] PRN Reason: 50 MCG/HR Last Titration: 06/02/17 08:16 Dose: 0 mcg/hr Sodium Chloride (1/2 Normal Saline) 1,000 mls @ 100 mls/hr IV ASDIR [facility] Last Admin: 06/02/17 02:15 Dose: 100 mls/hr Lorazepam (Ativan Injection -) 0.5 mg IVPUSH TID PRN PRN Reason: AGITATION Last Admin: 05/31/17 20:32 Dose: 0.5 mg Nicotine (Nicoderm Patch -) 14 mg TD DAILY [facility] Last Admin: 06/01/17 17:52 Dose: Not Given Nystatin (Nystatin Oral Suspension -) 500,000 units PO Q6HPO [facility] Last Admin: 06/02/17 08:05 Dose: Not Given Pantoprazole Sodium (Protonix -) 40 mg PO DAILY [facility] Last Admin: 06/01/17 10:58 Dose: 40 mg Polyethylene Glycol (Miralax (For Daily Use) -) 17 gm PO DAILY [facility] Last Admin: 06/01/17 17:53 Dose: 17 grams Potassium Chloride (K-Dur -) 40 meq PO DAILY [facility] Last Admin: 06/01/17 10:58 Dose: 40 meq A/P Acute Hypoxic Respiratory Failure Post Obstructive Acute Kidney Injury requiring temporary HD s/p ureteral stent placement/bladder biopsy LV Diastolic Dysfunction CAD Atrial Fibrillation HTN DM COPD Hydronephrosis - wean to extubate - monitor urine output, creatinine - f/u pathology - rate controlled - continue anticoagulation - O2 as needed - d/c ativan - continue ICU monitoring critical care time spent in reviewing chart, evaluating patient and formulating plan 35 min
[2017-06-02] MEDS ORDERED: PT OWN MED DRAWER 7, Y5N ONE (09:50)
[2017-06-02] MEDS: POTASSIUM CHLORIDE TABS 20 MEQ TABLET.ER (FP) PO SCH (09:55)
[2017-06-02] MEDS: PANTOPRAZOLE 40 MG TABLET (FP) PO SCH (09:55)
[2017-06-02] MEDS: NICOTINE 14 MG/24 HOURS TOPICAL PATCH TD SCH (09:56)
[2017-06-02] MEDS: APIXABAN 5 MG TABLET PO SCH ×2 (09:56→22:12)
[2017-06-02] MEDS: POLYETHYLENE GLYCOL 3350 119 GM BTL PO SCH (09:59)
--- NOTE | 2017-06-02 15:42 | PN ---
Progress Note, Physician Chief Complaint: pt transfered to ICU for unresponsiveness and hypoxic renal failure Patient s/p extubation, now on venti mask, tolerating well History of Present Illness: Patient comfortably lying in bed, denies pain, responds to question appropriately. Now, on venti mask at 50%, tolerating well - Current Medication List Current Medications: Active Medications Apixaban (Eliquis -) 5 mg PO BID [facility] Last Admin: 06/02/17 09:56 Dose: 5 mg Artificial Tears (Artificial Tears) 1 drop OU BID PRN PRN Reason: DRY EYES Diltiazem HCl (Cardizem Cd -) 240 mg PO DAILY [facility] Last Admin: 06/02/17 09:57 Dose: 240 mg Sodium Chloride (1/2 Normal Saline) 1,000 mls @ 100 mls/hr IV ASDIR [facility] Last Admin: 06/02/17 09:59 Dose: 100 mls/hr Nicotine (Nicoderm Patch -) 14 mg TD DAILY [facility] Last Admin: 06/02/17 09:56 Dose: 14 mg Nystatin (Nystatin Oral Suspension -) 500,000 units PO Q6HPO [facility] Last Admin: 06/02/17 11:15 Dose: 500,000 units Pantoprazole Sodium (Protonix -) 40 mg PO DAILY [facility] Last Admin: 06/02/17 09:55 Dose: 40 mg Polyethylene Glycol (Miralax (For Daily Use) -) 17 gm PO DAILY [facility] Last Admin: 06/02/17 09:59 Dose: 17 grams Potassium Chloride (K-Dur -) 40 meq PO DAILY [facility] Last Admin: 06/02/17 09:55 Dose: 40 meq - Objective Vital Signs: Vital Signs Temperature 98.6 F 06/02/17 08:00 Pulse Rate 85 06/02/17 12:00 Respiratory Rate 14 06/02/17 12:00 Blood Pressure 157/77 06/02/17 12:00 O2 Sat by Pulse Oximetry (%) 100 06/02/17 10:00 Constitutional: Yes: Calm Eyes: Yes: Conjunctiva Clear HENT: Yes: Normocephalic Neck: Yes: Supple Cardiovascular: Yes: Regular Rate and Rhythm Respiratory: Yes: Regular, CTA Bilaterally Gastrointestinal: Yes: Normal Bowel Sounds, Soft Edema: No Peripheral Pulses WNL: Yes Neurological: Yes: Alert, Oriented Labs: CBC, BMP 06/02/17 05:15 06/02/17 05:15 INR, PTT INR 1.08 (0.82-1.09) 05/30/17 06:40 Problem List - Problems (1) Acute renal failure Code(s): N17.9 - ACUTE KIDNEY FAILURE, UNSPECIFIED Qualifiers: Acute renal failure type: unspecified Qualified Code(s): N17.9 - Acute kidney failure, unspecified (2) Hydronephrosis Code(s): N13.30 - UNSPECIFIED HYDRONEPHROSIS Qualifiers: Hydronephrosis type: unspecified Qualified Code(s): N13.30 - Unspecified hydronephrosis Assessment/Plan A/P 76 year old gentleman with PMhx of Afib on Coumadin, COPD, Hyperlipidemia, DM Type 2, Hypertension who presented with AMS and found to have BUN/Cr of 109/11 and K of 7.8. S/P extubation, now on venti mask at 50%, tolerating well. 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
--- NOTE | 2017-06-02 17:26 | PN ---
Progress Note, Physician History of Present Illness: Post extubation for altered mental status. Remains in rate-controlled afib, denies chest pain or dyspnea. Sensorium improved to baseline. - Current Medication List Current Medications: Active Medications Apixaban (Eliquis -) 5 mg PO BID [facility] Last Admin: 06/02/17 09:56 Dose: 5 mg Artificial Tears (Artificial Tears) 1 drop OU BID PRN PRN Reason: DRY EYES Diltiazem HCl (Cardizem Cd -) 240 mg PO DAILY [facility] Last Admin: 06/02/17 09:57 Dose: 240 mg Sodium Chloride (1/2 Normal Saline) 1,000 mls @ 100 mls/hr IV ASDIR [facility] Last Admin: 06/02/17 09:59 Dose: 100 mls/hr Nicotine (Nicoderm Patch -) 14 mg TD DAILY [facility] Last Admin: 06/02/17 09:56 Dose: 14 mg Nystatin (Nystatin Oral Suspension -) 500,000 units PO Q6HPO [facility] Last Admin: 06/02/17 11:15 Dose: 500,000 units Pantoprazole Sodium (Protonix -) 40 mg PO DAILY [facility] Last Admin: 06/02/17 09:55 Dose: 40 mg Polyethylene Glycol (Miralax (For Daily Use) -) 17 gm PO DAILY [facility] Last Admin: 06/02/17 09:59 Dose: 17 grams Potassium Chloride (K-Dur -) 40 meq PO DAILY [facility] Last Admin: 06/02/17 09:55 Dose: 40 meq - Objective Vital Signs: Vital Signs Temperature 98.6 F 06/02/17 08:00 Pulse Rate 85 06/02/17 12:00 Respiratory Rate 14 06/02/17 12:00 Blood Pressure 157/77 06/02/17 12:00 O2 Sat by Pulse Oximetry (%) 100 06/02/17 10:00 Constitutional: Yes: No Distress, Calm Neck: Yes: Supple Cardiovascular: Yes: Pulse Irregular Respiratory: Yes: Regular, Diminished, On Venti-Mask Gastrointestinal: Yes: Normal Bowel Sounds, Soft, Abdomen, Obese Edema: No Labs: CBC, BMP 06/02/17 05:15 06/02/17 05:15 INR, PTT INR 1.08 (0.82-1.09) 05/30/17 06:40 - ....Imaging Chest X-ray: Report Reviewed (Left base ATX) EKG: Report Reviewed (Tele: Rate-controlled afib) Problem List - Problems (1) Acute renal failure Code(s): N17.9 - ACUTE KIDNEY FAILURE, UNSPECIFIED Qualifiers: Acute renal failure type: unspecified Qualified Code(s): N17.9 - Acute kidney failure, unspecified (2) Atrial fibrillation with RVR Code(s): I48.91 - UNSPECIFIED ATRIAL FIBRILLATION (3) Diastolic CHF Code(s): I50.30 - UNSPECIFIED DIASTOLIC (CONGESTIVE) HEART FAILURE Qualifiers : Congestive heart failure chronicity: chronic Qualified Code(s): I50.32 - Chronic diastolic (congestive) heart failure (4) HTN (hypertension) Code(s): I10 - ESSENTIAL (PRIMARY) HYPERTENSION Qualifiers: Hypertension type: essential hypertension Qualified Code(s): I10 - Essential (primary) hypertension (5) Hydronephrosis Code(s): N13.30 - UNSPECIFIED HYDRONEPHROSIS Qualifiers: Hydronephrosis type: unspecified Qualified Code(s): N13.30 - Unspecified hydronephrosis (6) Pelvic mass Code(s): R19.00 - INTRA-ABD AND PELVIC SWELLING, MASS AND LUMP, UNSP SITE (7) Uremia Code(s): N19 - UNSPECIFIED KIDNEY FAILURE Assessment/Plan Echocardiography revealed normal LV size and systolic function with no significant valvular pathology 1. Post Acute Hypoxic Respiratory Failure 2. Post obstructive acute renal failure and hyperkalemia 3. CAD angina pectoris, stable 4. Diastolic LV dysfunction with class 0-I NYHA classification LV congestive heart failure, euvolemic 5. Permanent atrial fibrillation on chronic A/C with Coumadin, transient supra- therapeutic INR, currently off Heparin gtt pre-procedure 6. Post Digoxin toxicity 7. Hyperkalemia, resolved 8. Altered mental status/toxic metabolic encephalopathy, resolved 9. Hypertension 10. DM 11. COPD/emphysema 12. 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 Monitor renal recovery and urine output off HD 2. Continue Cardizem CD 240 qd 3. As outlined in prior notes if additional atrial fibrillation rate control is desired add B-Blockers 4. Consider starting JULIET-I/ARB once renal fxn stable 5. Started on Eliquis 5 bid, reasonable as renal function stabilizing 6. As outlined in prior notes defer resumption of Digoxin therapy at this point 7. F/u pathology to assess etiology of pelvic mass
[2017-06-03] MEDS: NYSTATIN 500,000 UNITS/5 ML SUSPENSION PO SCH ×5 (00:12→23:47)
[2017-06-03] MEDS: SODIUM CHLORIDE 0.45% 1,000 ML IV SCH ×3 (02:13→21:47)
[2017-06-03 06:40] LABS: BASOPHIL 0.5 % (0-2.0); EOSINOPHIL 3.3 % (0-4.5); MCH 32.1 pg (25.7-33.7); MCHC 34.7 g/dl (32.0-35.9); MEAN CELL VOLUME 92.4 fl (80-96); MEAN PLT VOLUME 8.4 fl (7.5-11.1); NEUTROPHILS 79.5 % (42.8-82.8); PLATELET COUNT 272 K/MM3 (134-434); RDW 13.8 % (11.9-15.9); WHITE BLOOD COUNT 11.4 K/mm3 (4.0-10.0)
[2017-06-03 07:25] LABS: ALBUMIN 2.6 g/dl (3.4-5.0); ANION GAP 9 (8-16); CALCIUM 8.4 mg/dL (8.5-10.1); CO2 26 mmol/L (21-32); CREATININE 1.2 mg/dL (0.7-1.3); GLUCOSE,RANDOM 80 mg/dL (74-106); MAGNESIUM 2.1 mg/dL (1.8-2.4); PHOSPHOROUS 2.4 mg/dL (2.5-4.9); SGOT/AST 20 U/L (15-37); SGPT/ALT 41 U/L (12-78)
[2017-06-03 07:27] LABS: ALK PHOS 67 U/L (45-117); BILIRUBIN,TOTAL 1.4 mg/dL (0.2-1.0); TOT PROT 5.2 g/dl (6.4-8.2)
--- NOTE | 2017-06-03 08:13 | PN ---
Progress Note, Physician - Current Medication List Current Medications: Active Medications Apixaban (Eliquis -) 5 mg PO BID [facility] Last Admin: 06/02/17 22:12 Dose: 5 mg Artificial Tears (Artificial Tears) 1 drop OU BID PRN PRN Reason: DRY EYES Diltiazem HCl (Cardizem Cd -) 240 mg PO DAILY [facility] Last Admin: 06/02/17 09:57 Dose: 240 mg Sodium Chloride (1/2 Normal Saline) 1,000 mls @ 100 mls/hr IV ASDIR [facility] Last Admin: 06/03/17 02:13 Dose: 100 mls/hr Nicotine (Nicoderm Patch -) 14 mg TD DAILY [facility] Last Admin: 06/02/17 09:56 Dose: 14 mg Nystatin (Nystatin Oral Suspension -) 500,000 units PO Q6HPO [facility] Last Admin: 06/03/17 06:28 Dose: 500,000 units Pantoprazole Sodium (Protonix -) 40 mg PO DAILY [facility] Last Admin: 06/02/17 09:55 Dose: 40 mg Polyethylene Glycol (Miralax (For Daily Use) -) 17 gm PO DAILY [facility] Last Admin: 06/02/17 09:59 Dose: 17 grams Potassium Chloride (K-Dur -) 40 meq PO DAILY [facility] Last Admin: 06/02/17 09:55 Dose: 40 meq - Objective Vital Signs: Vital Signs Temperature 99.6 F 06/03/17 06:00 Pulse Rate 83 06/03/17 06:00 Respiratory Rate 18 06/03/17 04:00 Blood Pressure 144/65 06/03/17 06:00 O2 Sat by Pulse Oximetry (%) 99 06/02/17 22:00 Labs: CBC, BMP 06/03/17 05:20 06/03/17 05:20 INR, PTT INR 1.08 (0.82-1.09) 05/30/17 06:40 Problem List - Problems (1) Acute renal failure Assessment/Plan: CR IMPROVED MONITOR OFF DIALYSIS Code(s): N17.9 - ACUTE KIDNEY FAILURE, UNSPECIFIED Qualifiers: Acute renal failure type: unspecified Qualified Code(s): N17.9 - Acute kidney failure, unspecified (2) Atrial fibrillation with RVR Assessment/Plan: OFF COUMADIN--ON ELIQUIS OFF HEPARIN DRIP MONITOR RATE ON MEDS Code(s): I48.91 - UNSPECIFIED ATRIAL FIBRILLATION (3) HTN (hypertension) Code(s): I10 - ESSENTIAL (PRIMARY) HYPERTENSION Qualifiers: Hypertension type: essential hypertension Qualified Code(s): I10 - Essential (primary) hypertension (4) Confusion Code(s): R41.0 - DISORIENTATION, UNSPECIFIED (5) Hydronephrosis Assessment/Plan: UROLOGY CONSULT--NOTED S/P STENTING Code(s): N13.30 - UNSPECIFIED HYDRONEPHROSIS Qualifiers: Hydronephrosis type: unspecified Qualified Code(s): N13.30 - Unspecified hydronephrosis (6) Pelvic mass Assessment/Plan: BIOPSY DONE BY LISBET ASENCIO PATH Code(s): R19.00 - INTRA-ABD AND PELVIC SWELLING, MASS AND LUMP, UNSP SITE (7) Acute respiratory failure Assessment/Plan: S/P EXTUBATION MONITOR CXR LT BASE ATELECTASIS Code(s): J96.00 - ACUTE RESPIRATORY FAILURE, UNSP W HYPOXIA OR HYPERCAPNIA
[2017-06-03] MEDS ORDERED: PT OWN MED DRAWER 7, Y5N ONE ×2 (10:09→21:26)
--- NOTE | 2017-06-03 10:24 | PN ---
Progress Note (short form) - Note Progress Note: Neurology History of Present Illness The patient is a 76 yo M poor historian with a past medical history significant for chronic AF on anticoagulation, emphysema with long history of cigarette smoking, diverticulitis, hypercholesterolemia, type 2 DM and HTN who presents with confusion. As per the patients daughter, she went to check on him after she didnt hear from him. The patient states he lives alone. He endorses a decreased appetite. He was admitted and had extensive course with acute renal failure and I was consulted for altered mental status. He had not been aware of location, date, and at bedside he was confused. CT head repeated and did not show acute changes. I reviewed MRI brain and showed moderate atrophy but no acute changes. He has Afib on Coumadin. Ammonia level checked and was normal. Over the weekend, transferred to ICU, required intubation and with acute respiratory failure. Confusion may have been 2/2 Ativan and sedation that had been given to him previously. Today, more awake and conversive but not aware of location (did not know he's in [place]), did not know date and believe it's 1969, did not know day of the week and initially thought it was Saturday. Active Medications Albuterol/Ipratropium (Duoneb -) 1 amp NEB QIDR [facility] Apixaban (Eliquis -) 5 mg PO BID [facility] Last Admin: 06/02/17 22:12 Dose: 5 mg Artificial Tears (Artificial Tears) 1 drop OU BID PRN PRN Reason: DRY EYES Diltiazem HCl (Cardizem Cd -) 240 mg PO DAILY [facility] Last Admin: 06/02/17 09:57 Dose: 240 mg Sodium Chloride (1/2 Normal Saline) 1,000 mls @ 100 mls/hr IV ASDIR [facility] Last Admin: 06/03/17 02:13 Dose: 100 mls/hr Nicotine (Nicoderm Patch -) 14 mg TD DAILY [facility] Last Admin: 06/02/17 09:56 Dose: 14 mg Nystatin (Nystatin Oral Suspension -) 500,000 units PO Q6HPO [facility] Last Admin: 06/03/17 06:28 Dose: 500,000 units Pantoprazole Sodium (Protonix -) 40 mg PO DAILY [facility] Last Admin: 06/02/17 09:55 Dose: 40 mg Polyethylene Glycol (Miralax (For Daily Use) -) 17 gm PO DAILY [facility] Last Admin: 06/02/17 09:59 Dose: 17 grams Potassium Chloride (K-Dur -) 40 meq PO DAILY [facility] Last Admin: 06/02/17 09:55 Dose: 40 meq *Physical Exam Last Vital Signs Temp Pulse Resp BP Pulse Ox 99.6 F 85 19 160/76 99 06/03/17 06:00 06/03/17 08:00 06/03/17 08:00 06/03/17 08:00 06/02/17 22:00 Well developed, well nourished. alert to person and place but not time. Afebrile. No acute distress. HEENT: Normocephalic, atraumatic. PERRLA, EOMI. No conjunctival pallor. Sclera are non- icteric. Moist mucous membranes. Oropharynx is clear. NECK: Supple. Full ROM. No JVD. Carotid pulses 2+ and symmetric, without bruits. No thyromegaly. No lymphadenopathy. CARDIOVASCULAR: Regular rate and rhythm. No murmurs, rubs, or gallops. Distal pulses are 2+ and symmetric. PULMONARY: No evidence of respiratory distress. Bilateral crackles. No wheezing, rales or rhonchi. ABDOMINAL: Soft. Non-tender. Non-distended. No rebound or guarding. No organomegaly. Normoactive bowel sounds. Old surgical scars on abdomen. MUSCULOSKELETAL Normal range of motion at all joints. No bony deformities or tenderness. No CVA tenderness. EXTREMITIES: No cyanosis. No clubbing. No edema. No calf tenderness. SKIN: Warm and dry. Normal capillary refill. No rashes. No jaundice. NEUROLOGICAL: No following commands, moving all extremities and responds to questions, CN intact, sensory nml CBCD WBC 11.4 K/mm3 (4.0-10.0) H 06/03/17 05:20 RBC 3.55 M/mm3 (4.00-5.60) L 06/03/17 05:20 Hgb 11.4 GM/dL (11.7-16.9) L 06/03/17 05:20 Hct 32.8 % (35.4-49) L 06/03/17 05:20 MCV 92.4 fl (80-96) 06/03/17 05:20 MCHC 34.7 g/dl (32.0-35.9) 06/03/17 05:20 RDW 13.8 % (11.9-15.9) 06/03/17 05:20 Plt Count 272 K/MM3 (134-434) 06/03/17 05:20 MPV 8.4 fl (7.5-11.1) 06/03/17 05:20 CMP Sodium 139 mmol/L (136-145) 06/03/17 05:20 Potassium 3.9 mmol/L (3.5-5.1) 06/03/17 05:20 Chloride 104 mmol/L (98-107) 06/03/17 05:20 Carbon Dioxide 26 mmol/L (21-32) 06/03/17 05:20 Anion Gap 9 (8-16) 06/03/17 05:20 BUN 18 mg/dL (7-18) 06/03/17 05:20 Creatinine 1.2 mg/dL (0.7-1.3) D 06/03/17 05:20 Creat Clearance w eGFR 59.18 (>60) 06/03/17 05:20 Calcium 8.4 mg/dL (8.5-10.1) L 06/03/17 05:20 Total Bilirubin 1.4 mg/dL (0.2-1.0) H D 06/03/17 05:20 AST 20 U/L (15-37) D 06/03/17 05:20 ALT 41 U/L (12-78) D 06/03/17 05:20 Alkaline Phosphatase 67 U/L (45-117) 06/03/17 05:20 Total Protein 5.2 g/dl (6.4-8.2) L 06/03/17 05:20 Albumin 2.6 g/dl (3.4-5.0) L 06/03/17 05:20 - RADIOLOGY CT head and MRI brain reviewed Medical Decision Making 76 yo M poor historian with a past medical history significant for chronic AF on anticoagulation, emphysema with long history of cigarette smoking, diverticulitis, hypercholesterolemia, type 2 DM and HTN who presents with confusion. As per the patients daughter, she went to check on him after she didnt hear from him. The patient states he lives alone. He endorses a decreased appetite. He was admitted and had extensive course with acute renal failure and now with altered mental status. He has not been aware of location, date, and at bedside he was confused. CT head repeated and did not show acute changes. I reviewed MRI brain and showed moderate atrophy but no acute changes. He has Afib on Coumadin. Ammonia level checked and was normal. Over the weekend , transferred to ICU, required intubation and with acute respiratory failure. Confusion may have been 2/2 Ativan and sedation that had been given to him previously. Today, more awake and conversive but not aware of location (did not know he's in [place]), did not know date and believe it's 1969, did not know day of the week and initially thought it was Saturday. Therefore, not fully at baseline mental status but improved. Currently extubated, monitor respiratory status and oxygen satuation. 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 Continue hydration and adequate PO intake. Avoid sedative or mind altering medication. Critical care time, 40 mins.
--- NOTE | 2017-06-03 10:27 | PN ---
Progress Note, Physician Chief Complaint: Patient was seen in ICU - events noted Awake AF with variable ventricular response History of Present Illness: Patient was seen and examined. Awake, but appears confused. Chart was reviewed Denies chest pain, SOB or palpitations - Current Medication List Current Medications: Active Medications Albuterol/Ipratropium (Duoneb -) 1 amp NEB QIDR [facility] Apixaban (Eliquis -) 5 mg PO BID [facility] Last Admin: 06/02/17 22:12 Dose: 5 mg Artificial Tears (Artificial Tears) 1 drop OU BID PRN PRN Reason: DRY EYES Diltiazem HCl (Cardizem Cd -) 240 mg PO DAILY [facility] Last Admin: 06/02/17 09:57 Dose: 240 mg Sodium Chloride (1/2 Normal Saline) 1,000 mls @ 100 mls/hr IV ASDIR [facility] Last Admin: 06/03/17 02:13 Dose: 100 mls/hr Nicotine (Nicoderm Patch -) 14 mg TD DAILY [facility] Last Admin: 06/02/17 09:56 Dose: 14 mg Nystatin (Nystatin Oral Suspension -) 500,000 units PO Q6HPO [facility] Last Admin: 06/03/17 06:28 Dose: 500,000 units Pantoprazole Sodium (Protonix -) 40 mg PO DAILY [facility] Last Admin: 06/02/17 09:55 Dose: 40 mg Polyethylene Glycol (Miralax (For Daily Use) -) 17 gm PO DAILY [facility] Last Admin: 06/02/17 09:59 Dose: 17 grams Potassium Chloride (K-Dur -) 40 meq PO DAILY [facility] Last Admin: 06/02/17 09:55 Dose: 40 meq - Objective Vital Signs: Vital Signs Temperature 99.6 F 06/03/17 06:00 Pulse Rate 85 06/03/17 08:00 Respiratory Rate 19 06/03/17 08:00 Blood Pressure 160/76 06/03/17 08:00 O2 Sat by Pulse Oximetry (%) 99 06/02/17 22:00 Neck: Yes: Supple Cardiovascular: Yes: Pulse Irregular, S1, S2 Respiratory: Yes: Diminished Gastrointestinal: Yes: Normal Bowel Sounds, Soft, Abdomen, Obese. No: Tenderness Edema: No Labs: CBC, BMP 06/03/17 05:20 06/03/17 05:20 Problem List - Problems (1) Acute renal failure Code(s): N17.9 - ACUTE KIDNEY FAILURE, UNSPECIFIED Qualifiers: Acute renal failure type: unspecified Qualified Code(s): N17.9 - Acute kidney failure, unspecified (2) Atrial fibrillation with RVR Code(s): I48.91 - UNSPECIFIED ATRIAL FIBRILLATION (3) Confusion Code(s): R41.0 - DISORIENTATION, UNSPECIFIED (4) HTN (hypertension) Code(s): I10 - ESSENTIAL (PRIMARY) HYPERTENSION Qualifiers: Hypertension type: essential hypertension Qualified Code(s): I10 - Essential (primary) hypertension (5) Hyperkalemia Code(s): E87.5 - HYPERKALEMIA (6) Uremia Code(s): N19 - UNSPECIFIED KIDNEY FAILURE (7) Diabetes Code(s): E11.9 - TYPE 2 DIABETES MELLITUS WITHOUT COMPLICATIONS Qualifiers: Diabetes mellitus type: type 2 Diabetes mellitus complication status: without complication (8) Supratherapeutic INR Code(s): R79.1 - ABNORMAL COAGULATION PROFILE Assessment/Plan 1. Acute renal failure (post obstructive) requiring temporary HD 2. Digoxin toxicity - resolved 3. Hyperkalemia and supratherapeutic INR - now resolved - INR normalized 4. Altered mental status/toxic metabolic encephalopathy - due to uremia - now improved 5. Permanent atrial fibrillation with variable ventricular response 6. History of hypertension 7. COPD/emphysema with history of exacerbation 8. Type 2 diabetes mellitus 9. Post respiratory failure extubated yesterday 10. Pelvic mass with extrinsic ureteral compression and hydronephrosis post intervention - post bilateral stents, bladder biopsy PLAN: 1. Monitor renal function and electrolytes. Management as per Renal service 2. Continue Cardizem CD and titrate 3. Currently on Eliquis 5 mg BID 4. Consider ACEI or ARB once renal function stabilizes 5. Pathology to assess pelvic mass to follow Guarded Further plans are to follow Han Nowak MD
[2017-06-03] MEDS: NICOTINE 14 MG/24 HOURS TOPICAL PATCH TD SCH (10:52)
[2017-06-03] MEDS: APIXABAN 5 MG TABLET PO SCH ×2 (10:52→22:10)
[2017-06-03] MEDS: PANTOPRAZOLE 40 MG TABLET (FP) PO SCH (10:52)
[2017-06-03] MEDS: POLYETHYLENE GLYCOL 3350 119 GM BTL PO SCH (11:09)
[2017-06-03] MEDS: ALBUTEROL SO4 2.5/IPRATROPIUM 0.5 INH SOL 3 ML VIAL.NEB. NEB SCH ×2 (11:10→16:45)
--- NOTE | 2017-06-03 11:31 | PN ---
Teaching Attending Note Name of Resident: Marco A Slater ATTENDING PHYSICIAN STATEMENT I saw and evaluated the patient. I reviewed the resident's note and discussed the case with the resident. I agree with the resident's findings and plan as documented. SUBJECTIVE: Pt seen and examined in the ICU. Extubated yesterday without incident. Denies cough or wheezing. No fevers, chills. No chest pain. OBJECTIVE: Last Vital Signs Temp Pulse Resp BP Pulse Ox 99.6 F 109 H 18 138/75 99 06/03/17 06:00 06/03/17 10:00 06/03/17 10:00 06/03/17 10:00 06/02/17 22:00 Intake & Output 05/31/17 06/01/17 06/02/17 06/03/17 23:59 23:59 23:59 23:59 Intake Total 1500 2333 3067 1200 Output Total 7280 431 3288 Balance -200 7783 094 4178 Weight 258 lb 9.6 oz 253 lb 8.505 oz 253 lb 12.033 oz 265 lb 6.4 oz Gen: NAD at rest Heart: irregular Lung: scattered rhonchi Abd: soft, nontender Ext: no edema CBC, BMP 06/03/17 05:20 06/03/17 05:20 Active Medications Albuterol/Ipratropium (Duoneb -) 1 amp NEB QIDR [facility] Last Admin: 06/03/17 11:10 Dose: 1 amp Apixaban (Eliquis -) 5 mg PO BID [facility] Last Admin: 06/03/17 10:52 Dose: 5 mg Artificial Tears (Artificial Tears) 1 drop OU BID PRN PRN Reason: DRY EYES Diltiazem HCl (Cardizem Cd -) 240 mg PO DAILY [facility] Last Admin: 06/03/17 10:51 Dose: 240 mg Sodium Chloride (1/2 Normal Saline) 1,000 mls @ 100 mls/hr IV ASDIR [facility] Last Admin: 06/03/17 02:13 Dose: 100 mls/hr Nicotine (Nicoderm Patch -) 14 mg TD DAILY [facility] Last Admin: 06/03/17 10:52 Dose: 14 mg Nystatin (Nystatin Oral Suspension -) 500,000 units PO Q6HPO [facility] Last Admin: 06/03/17 06:28 Dose: 500,000 units Pantoprazole Sodium (Protonix -) 40 mg PO DAILY [facility] Last Admin: 06/03/17 10:52 Dose: 40 mg Polyethylene Glycol (Miralax (For Daily Use) -) 17 gm PO DAILY [facility] Last Admin: 06/03/17 11:09 Dose: 17 grams Potassium Chloride (K-Dur -) 40 meq PO DAILY [facility] Last Admin: 06/02/17 09:55 Dose: 40 meq ASSESSMENT AND PLAN: Acute Hypoxic Respiratory Failure improving Post Obstructive Acute Kidney Injury requiring temporary HD s/p ureteral stent placement/bladder biopsy LV Diastolic Dysfunction CAD Atrial Fibrillation HTN DM COPD Hydronephrosis - monitor urine output, creatinine - f/u pathology - rate controlled - continue anticoagulation - O2 as needed - d/c ativan - can monitor on floor
[2017-06-03] MEDS ORDERED: NAPH,MB-DB/K PH,MBDB POWDER PACKET PO ONE (11:40)
[2017-06-03] MEDS: POTASSIUM CHLORIDE TABS 20 MEQ TABLET.ER (FP) PO SCH (11:41)
--- NOTE | 2017-06-03 12:08 | PN ---
Progress Note (short form) - Note Progress Note: Renal Follow up for SILAS Pt seen and examined in the ICU extubated yesterday morning awake and alert today no acute complaints on IVF Vital Signs Temperature 99.6 F 06/03/17 06:00 Pulse Rate 109 H 06/03/17 10:00 Respiratory Rate 18 06/03/17 10:00 Blood Pressure 138/75 06/03/17 10:00 O2 Sat by Pulse Oximetry (%) 99 06/02/17 22:00 Intake & Output 05/31/17 06/01/17 06/02/17 06/03/17 23:59 23:59 23:59 23:59 Intake Total 1500 2333 3067 1200 Output Total 9857 468 1670 Balance -200 7948 664 7168 Weight 258 lb 9.6 oz 253 lb 8.505 oz 253 lb 12.033 oz 265 lb 6.4 oz Gen: awake and alert CVS: RRR Lungs: CTA, anterior exam Abd: soft NT/ND Ext: No edema, clubbing or cyanosis : dutton in place CBC, BMP 06/03/17 05:20 06/03/17 05:20 Laboratory Tests 06/03/17 05:20 Calcium 8.4 L Phosphorus 2.4 L D Magnesium 2.1 Current Medications Albuterol/Ipratropium (Duoneb -) 1 amp NEB QIDR [facility] Last Admin: 06/03/17 11:10 Dose: 1 amp Apixaban (Eliquis -) 5 mg PO BID [facility] Last Admin: 06/03/17 10:52 Dose: 5 mg Artificial Tears (Artificial Tears) 1 drop OU BID PRN PRN Reason: DRY EYES Diltiazem HCl (Cardizem Cd -) 240 mg PO DAILY [facility] Last Admin: 06/03/17 10:51 Dose: 240 mg Sodium Chloride (1/2 Normal Saline) 1,000 mls @ 100 mls/hr IV ASDIR [facility] Last Admin: 06/03/17 11:00 Dose: 100 mls/hr Nicotine (Nicoderm Patch -) 14 mg TD DAILY [facility] Last Admin: 06/03/17 10:52 Dose: 14 mg Nystatin (Nystatin Oral Suspension -) 500,000 units PO Q6HPO [facility] Last Admin: 06/03/17 11:46 Dose: 500,000 units Pantoprazole Sodium (Protonix -) 40 mg PO DAILY [facility] Last Admin: 06/03/17 10:52 Dose: 40 mg Polyethylene Glycol (Miralax (For Daily Use) -) 17 gm PO DAILY [facility] Last Admin: 06/03/17 11:09 Dose: 17 grams Potassium Chloride (K-Dur -) 40 meq PO DAILY [facility] Last Admin: 06/03/17 11:41 Dose: 40 meq Potassium Phos/Sodium Phos (Phos-Nak Packet -) 1 packet PO TID [facility] Stop: 06/04/17 06:01 A/P 76 year old gentleman with PMhx of Afib on Coumadin, COPD, Hyperlipidemia, DM Type 2, Hypertension who presented with AMS and found to have BUN/Cr of 109/11 and K of 7.8. 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 Renal function improved in the last 24 hours pt is non-oliguric can decrease or stop IVF at this time Trend BUN/Cr #Unresponsiveness/Hypoxia pt not extubated and mental status appears improved pulmonary/ICU follow up #Bladder/Prostate mass f/u biopsy results urology followup Thank you Donta Carmona Problem List - Problems (1) Acute renal failure Code(s): N17.9 - ACUTE KIDNEY FAILURE, UNSPECIFIED Qualifiers: Acute renal failure type: unspecified Qualified Code(s): N17.9 - Acute kidney failure, unspecified (2) Atrial fibrillation with RVR Code(s): I48.91 - UNSPECIFIED ATRIAL FIBRILLATION (3) HTN (hypertension) Code(s): I10 - ESSENTIAL (PRIMARY) HYPERTENSION Qualifiers: Hypertension type: essential hypertension Qualified Code(s): I10 - Essential (primary) hypertension (4) Hyperkalemia Code(s): E87.5 - HYPERKALEMIA (5) Uremia Code(s): N19 - UNSPECIFIED KIDNEY FAILURE (6) Metabolic acidosis Code(s): E87.2 - ACIDOSIS (7) Hyperphosphatemia Code(s): E83.39 - OTHER DISORDERS OF PHOSPHORUS METABOLISM (8) Hyponatremia Code(s): E87.1 - HYPO-OSMOLALITY AND HYPONATREMIA
--- NOTE | 2017-06-03 13:26 | PN ---
Progress Note, Physician History of Present Illness: Patient seen and examined in ICU. Patient was resting in bed in NAD. Extubated yesterday. He states that his breathing is improved and that he feels better. - Current Medication List Current Medications: Active Medications Albuterol/Ipratropium (Duoneb -) 1 amp NEB QIDR [facility] Last Admin: 06/03/17 11:10 Dose: 1 amp Apixaban (Eliquis -) 5 mg PO BID [facility] Last Admin: 06/03/17 10:52 Dose: 5 mg Artificial Tears (Artificial Tears) 1 drop OU BID PRN PRN Reason: DRY EYES Diltiazem HCl (Cardizem Cd -) 240 mg PO DAILY [facility] Last Admin: 06/03/17 10:51 Dose: 240 mg Sodium Chloride (1/2 Normal Saline) 1,000 mls @ 100 mls/hr IV ASDIR [facility] Last Admin: 06/03/17 11:00 Dose: 100 mls/hr Nicotine (Nicoderm Patch -) 14 mg TD DAILY [facility] Last Admin: 06/03/17 10:52 Dose: 14 mg Nystatin (Nystatin Oral Suspension -) 500,000 units PO Q6HPO [facility] Last Admin: 06/03/17 11:46 Dose: 500,000 units Pantoprazole Sodium (Protonix -) 40 mg PO DAILY [facility] Last Admin: 06/03/17 10:52 Dose: 40 mg Polyethylene Glycol (Miralax (For Daily Use) -) 17 gm PO DAILY [facility] Last Admin: 06/03/17 11:09 Dose: 17 grams Potassium Chloride (K-Dur -) 40 meq PO DAILY [facility] Last Admin: 06/03/17 11:41 Dose: 40 meq Potassium Phos/Sodium Phos (Phos-Nak Packet -) 1 packet PO TID [facility] Stop: 06/04/17 06:01 - Objective Vital Signs: Vital Signs Temperature 99.6 F 06/03/17 06:00 Pulse Rate 108 H 06/03/17 12:00 Respiratory Rate 18 06/03/17 12:00 Blood Pressure 155/72 06/03/17 12:00 O2 Sat by Pulse Oximetry (%) 95 06/03/17 10:00 Constitutional: Yes: Well Nourished, No Distress, Calm HENT: Yes: Atraumatic, Normocephalic Neck: Yes: Supple, Trachea Midline Cardiovascular: Yes: Pulse Irregular, S1, S2. No: JVD, Gallop, Murmur, Rub Respiratory: Yes: Regular, Rhonchi (scattered ronchi in all vu) Gastrointestinal: Yes: Normal Bowel Sounds, Soft. No: Tenderness, Tenderness, Rebound Neurological: Yes: Alert, Oriented Psychiatric: Yes: Alert, Oriented Labs: CBC, BMP 06/03/17 05:20 06/03/17 05:20 INR, PTT INR 1.08 (0.82-1.09) 05/30/17 06:40 Problem List - Problems (1) Acute respiratory failure Code(s): J96.00 - ACUTE RESPIRATORY FAILURE, UNSP W HYPOXIA OR HYPERCAPNIA (2) Atrial fibrillation with RVR Code(s): I48.91 - UNSPECIFIED ATRIAL FIBRILLATION Assessment/Plan 76 YO M w/ PMH afib on eliquis, emphysema, DMII and HLD transferred to the ICU after he was found unresponsive and apneic on the floors. Patient was intubated in ICU. Extubated yesterday and doing well. Neuro: -a&o x3 Pulmonary: -PMH emphysema s/p intubation 2/2 respiratory arrest. Patient extubated saturating well on 2L NC -standing and PRN nebs Cardio: -PMH Afib on AC; rate controlled -Cardizem 240 PO daily -eliquis 5mg PO daily Prophylaxsis: -protonix 40 mg PO -patient on AC for afib, no need for additional DVT prophy FEN: -1/2 NS @ 100 -potassium 2.4; will replete -soft diet Dispo: -Patient is stable for transfer to floor -critical care time 35 minutes
[2017-06-03] MEDS: NAPH,MB-DB/K PH,MBDB POWDER PACKET PO SCH ×2 (14:39→22:11)
--- NOTE | 2017-06-03 16:34 | PATH ---
Surgical Pathology Report Patient Name: EFREN BARKSDALE Med. Rec. 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 Maurilio Rivers M.D. 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 Comment: Immunohistochemical stains performed and interpreted at [facility] show the tumor cells are negative for Ae1/Ae3, CK7, CK20, TTF1, synaptophysin, and chromogranin immunostains. Additional immunohistochemical stains performed at [place], [place] ([id number]) show the tumor cells are positive for CAM5.2, NKX3.1, and focally weakly for PSAP immunostains and are negative for vimentin, inhibin, S100, Melan A, calretinin, PLAP, and CD56 immunostains; CD99 shows nonspecific reactivity. The morphologic findings and the immunoprofile are consistent with involvement by adenocarcinoma of prostate origin. The case was discussed with Sadi Huffman NP at Dr. Castro's office on 06/03/17. Electronically Signed Easton Whitlock M.D. Gross Description Received in formalin labeled "pelvic mass biopsy" are 4 valdez, cylindrical portions of soft tissue ranging from 1.3-2.4 cm in length and averaging 0.1 cm in diameter. The specimens are submitted in toto in one cassette. 05/30/201705/30/2017
--- NOTE | 2017-06-03 21:09 | CONSULT ---
Consult - text type - Consultation Consultation Note: Patient seen and examined The patient is a 76 yo M poor historian with a past medical history significant for chronic AF on anticoagulation, emphysema with long history of cigarette smoking, diverticulitis, hypercholesterolemia, type 2 DM and HTN who presents with confusion. He was admitted and had extensive course with acute renal failure and now with altered mental status. He has not been aware of location, date, and at bedside he was confused. CT head repeated and did not show acute changes. MRI brain and showed moderate atrophy but no acute changes. He has Afib on Coumadin. Past History - Past Medical History Cardiac Disorders: Yes (A-FIB) Diabetes: Yes (NIDDM) GI Disorders: (divertivculitis) Hypercholesterolemia: Yes - Psycho/Social/Smoking Cessation Hx Smoking History: Current every day smoker Allergies/Adverse Reactions: Allergies Allergy/AdvReac Type Severity Reaction Status Date / Time amoxicillin trihydrate Allergy Mild Verified 05/17/17 23:52 [From Augmentin] potassium clavulanate AdvReac Unknown Verified 05/17/17 23:52 [From Augmentin] Home Medication List Medication Instructions Recorded Confirmed Type Atorvastatin Calcium DAILY 05/20/17 History Digoxin DAILY 05/20/17 History Diltiazem HCl [Cartia Xt] DAILY 05/20/17 History Gemfibrozil DAILY 05/20/17 History Metoprolol Tartrate BID 05/20/17 History [place]-3 Acid Ethyl Esters [Lovaza] BID 05/20/17 History Ranitidine [Zantac -] BID 05/20/17 History Warfarin Sodium [Coumadin] DAILY 05/20/17 History Active Medications Generic Name Dose Route Start Last Admin Trade Name Freq PRN Reason Stop Dose Admin Apixaban 5 mg 05/30/17 13:45 05/31/17 10:22 Eliquis - PO 5 mg BID [facility] Administration Artificial Tears 1 drop 05/24/17 18:36 Artificial Tears OU BID PRN DRY EYES Diltiazem HCl 240 mg 05/25/17 10:00 05/31/17 10:22 Cardizem Cd - PO 240 mg DAILY [facility] Administration Hydralazine HCl 25 mg 05/24/17 22:00 05/31/17 05:22 Apresoline - PO 25 mg TID [facility] Administration Sodium Chloride 1,000 mls @ 50 mls/hr 05/30/17 10:17 05/30/17 13:30 Normal Saline - IV 50 mls/hr ASDIR [facility] Administration Lorazepam 0.5 mg 05/31/17 10:24 05/31/17 12:07 Ativan Injection - IVPUSH 0.5 mg TID PRN Administration AGITATION Nicotine 14 mg 05/25/17 10:00 05/31/17 10:23 Nicoderm Patch - TD 14 mg DAILY [facility] Administration Nystatin 500,000 units 05/25/17 00:00 05/31/17 14:31 Nystatin Oral Suspension - PO Not Given Q6HPO [facility] Pantoprazole Sodium 40 mg 05/25/17 10:00 05/31/17 10:23 Protonix - PO 40 mg DAILY [facility] Administration Polyethylene Glycol 17 gm 05/25/17 13:45 05/31/17 10:34 Miralax (For Daily Use) - PO 17 grams DAILY [facility] Administration Potassium Chloride 40 meq 05/29/17 11:03 05/31/17 10:22 K-Dur - PO 40 meq DAILY [facility] Administration AFVSS Cor: RSR, No murmurs, No gallops Lungs: Clear to P&A Abd: Soft, Normal bowel sounds, No organomegaly Ext:No significant edema Skin: No rashes, Integument intact Abnormal Lab Results 06/06/17 06/07/17 06/07/17 12:11 10:52 10:52 RBC 3.82 L Hct 35.2 L MPV 7.1 L Eosinophils % 5.1 H Anion Gap 7 L BUN 25 H Creatinine 1.7 H D Random Glucose 108 H D Uric Acid 7.8 H D Iron 23 L TIBC 159 L Iron Saturation 14 L Total Protein 6.0 L Albumin 2.7 L A/P 76 year old gentleman with PMhx of Afib on Coumadin, COPD, Hyperlipidemia, DM Type 2, Hypertension who presented with AMS and found to have BUN/Cr of 109/11 and K of 7.8. He presented with alterd mental status/hypoxia/ ??? aspiration/acute renal failure. Was in icu/s/p intubation for sepsis. w/u revealed obstructive uropathy/bladder/prostate mass Bladder biopsy--chronic inflammation CT guided bx of mass c/w prostate adeno ca Patient denies personal/family h/o cancer based on CT c/a/p and biopsy ---patient with locally advanced prostate cancer Will check Bone scan Will get rad-onc consult ? androgen suppression + RT Patient with memory deficits. answering questions with some mold cognitive impairment will discuss with his daughter who is in [facility]
[2017-06-04] MEDS: ALBUTEROL SO4 2.5/IPRATROPIUM 0.5 INH SOL 3 ML VIAL.NEB. NEB SCH ×4 (00:10→16:55)
[2017-06-04] MEDS: NYSTATIN 500,000 UNITS/5 ML SUSPENSION PO SCH (06:34)
[2017-06-04] MEDS: NAPH,MB-DB/K PH,MBDB POWDER PACKET PO SCH ×2 (06:34→21:29)
[2017-06-04 08:30] LABS: MCH 31.4 pg (25.7-33.7); MCHC 34.2 g/dl (32.0-35.9); MEAN CELL VOLUME 91.8 fl (80-96); MEAN PLT VOLUME 8.4 fl (7.5-11.1); PLATELET COUNT 305 K/MM3 (134-434); RDW 13.8 % (11.9-15.9); WHITE BLOOD COUNT 10.7 K/mm3 (4.0-10.0)
[2017-06-04 08:50] LABS: ALBUMIN 2.7 g/dl (3.4-5.0); ANION GAP 10 (8-16); CALCIUM 9.1 mg/dL (8.5-10.1); CO2 25 mmol/L (21-32); CREATININE 1.7 mg/dL (0.7-1.3); GLUCOSE,RANDOM 107 mg/dL (74-106); MAGNESIUM 2.2 mg/dL (1.8-2.4); SGOT/AST 18 U/L (15-37); SGPT/ALT 33 U/L (12-78)
[2017-06-04 08:53] LABS: ALK PHOS 75 U/L (45-117); PHOSPHOROUS 2.2 mg/dL (2.5-4.9); TOT PROT 5.6 g/dl (6.4-8.2)
[2017-06-04] MEDS ORDERED: PT OWN MED DRAWER 7, Y5N ONE ×2 (09:54→21:27)
[2017-06-04] MEDS: POLYETHYLENE GLYCOL 3350 119 GM BTL PO SCH (10:00)
[2017-06-04] MEDS: POTASSIUM CHLORIDE TABS 20 MEQ TABLET.ER (FP) PO SCH (10:02)
[2017-06-04] MEDS: SODIUM CHLORIDE 0.45% 1,000 ML IV SCH (10:02)
[2017-06-04] MEDS: NICOTINE 14 MG/24 HOURS TOPICAL PATCH TD SCH (10:03)
[2017-06-04] MEDS: PANTOPRAZOLE 40 MG TABLET (FP) PO SCH (10:03)
[2017-06-04] MEDS: APIXABAN 5 MG TABLET PO SCH ×2 (10:03→21:29)
--- NOTE | 2017-06-04 11:07 | PN ---
Progress Note (short form) - Note Progress Note: Neurology History of Present Illness The patient is a 76 yo M poor historian with a past medical history significant for chronic AF on anticoagulation, emphysema with long history of cigarette smoking, diverticulitis, hypercholesterolemia, type 2 DM and HTN who presents with confusion. As per the patients daughter, she went to check on him after she didnt hear from him. The patient states he lives alone. He endorses a decreased appetite. He was admitted and had extensive course with acute renal failure and I was consulted for altered mental status. He had not been aware of location, date, and at bedside he was confused. CT head repeated and did not show acute changes. I reviewed MRI brain and showed moderate atrophy but no acute changes. He has Afib on Coumadin. Ammonia level checked and was normal. Over the weekend, transferred to ICU, required intubation and with acute respiratory failure but has improved since then and remains awake and conversive but not fully aware. CAn tell me he's at [employer] today and name of President but is tangential in thought process. Active Medications Albuterol/Ipratropium (Duoneb -) 1 amp NEB QIDR [facility] Last Admin: 06/04/17 06:45 Dose: 1 amp Apixaban (Eliquis -) 5 mg PO BID [facility] Last Admin: 06/04/17 10:03 Dose: 5 mg Artificial Tears (Artificial Tears) 1 drop OU BID PRN PRN Reason: DRY EYES Diltiazem HCl (Cardizem Cd -) 240 mg PO DAILY [facility] Last Admin: 06/04/17 10:03 Dose: 240 mg Sodium Chloride (1/2 Normal Saline) 1,000 mls @ 100 mls/hr IV ASDIR [facility] Last Admin: 06/04/17 10:02 Dose: 100 mls/hr Nicotine (Nicoderm Patch -) 14 mg TD DAILY [facility] Last Admin: 06/04/17 10:03 Dose: 14 mg Nystatin (Nystatin Oral Suspension -) 500,000 units PO Q6HPO [facility] Last Admin: 06/04/17 06:34 Dose: 500,000 units Pantoprazole Sodium (Protonix -) 40 mg PO DAILY [facility] Last Admin: 06/04/17 10:03 Dose: 40 mg Polyethylene Glycol (Miralax (For Daily Use) -) 17 gm PO DAILY [facility] Last Admin: 06/04/17 10:00 Dose: 17 grams Potassium Chloride (K-Dur -) 40 meq PO DAILY [facility] Last Admin: 06/04/17 10:02 Dose: 40 meq *Physical Exam Vital Signs Temperature 98.4 F 06/04/17 07:49 Pulse Rate 106 H 06/04/17 07:49 Respiratory Rate 18 06/04/17 07:49 Blood Pressure 170/96 06/04/17 07:49 O2 Sat by Pulse Oximetry (%) 96 06/03/17 22:00 Well developed, well nourished. alert to person and place but not time. Afebrile. No acute distress. HEENT: Normocephalic, atraumatic. PERRLA, EOMI. No conjunctival pallor. Sclera are non- icteric. Moist mucous membranes. Oropharynx is clear. NECK: Supple. Full ROM. No JVD. Carotid pulses 2+ and symmetric, without bruits. No thyromegaly. No lymphadenopathy. CARDIOVASCULAR: Regular rate and rhythm. No murmurs, rubs, or gallops. Distal pulses are 2+ and symmetric. PULMONARY: No evidence of respiratory distress. Bilateral crackles. No wheezing, rales or rhonchi. ABDOMINAL: Soft. Non-tender. Non-distended. No rebound or guarding. No organomegaly. Normoactive bowel sounds. Old surgical scars on abdomen. MUSCULOSKELETAL Normal range of motion at all joints. No bony deformities or tenderness. No CVA tenderness. EXTREMITIES: No cyanosis. No clubbing. No edema. No calf tenderness. SKIN: Warm and dry. Normal capillary refill. No rashes. No jaundice. NEUROLOGICAL: Following commands, moving all extremities and responds to questions, CN intact , sensory nml, gait deferred CBCD WBC 10.7 K/mm3 (4.0-10.0) H 06/04/17 06:00 RBC 3.72 M/mm3 (4.00-5.60) L 06/04/17 06:00 Hgb 11.7 GM/dL (11.7-16.9) 06/04/17 06:00 Hct 34.1 % (35.4-49) L 06/04/17 06:00 MCV 91.8 fl (80-96) 06/04/17 06:00 MCHC 34.2 g/dl (32.0-35.9) 06/04/17 06:00 RDW 13.8 % (11.9-15.9) 06/04/17 06:00 Plt Count 305 K/MM3 (134-434) 06/04/17 06:00 MPV 8.4 fl (7.5-11.1) 06/04/17 06:00 CMP Sodium 139 mmol/L (136-145) 06/04/17 07:00 Potassium 4.0 mmol/L (3.5-5.1) 06/04/17 07:00 Chloride 104 mmol/L (98-107) 06/04/17 07:00 Carbon Dioxide 25 mmol/L (21-32) 06/04/17 07:00 Anion Gap 10 (8-16) 06/04/17 07:00 BUN 23 mg/dL (7-18) H D 06/04/17 07:00 Creatinine 1.7 mg/dL (0.7-1.3) H D 06/04/17 07:00 Creat Clearance w eGFR 39.60 (>60) 06/04/17 07:00 Calcium 9.1 mg/dL (8.5-10.1) 06/04/17 07:00 Total Bilirubin 1.0 mg/dL (0.2-1.0) D 06/04/17 07:00 AST 18 U/L (15-37) 06/04/17 07:00 ALT 33 U/L (12-78) 06/04/17 07:00 Alkaline Phosphatase 75 U/L (45-117) 06/04/17 07:00 Total Protein 5.6 g/dl (6.4-8.2) L 06/04/17 07:00 Albumin 2.7 g/dl (3.4-5.0) L 06/04/17 07:00 - RADIOLOGY CT head and MRI brain reviewed Medical Decision Making 76 yo M poor historian with a past medical history significant for chronic AF on anticoagulation, emphysema with long history of cigarette smoking, diverticulitis, hypercholesterolemia, type 2 DM and HTN who presents with confusion. As per the patients daughter, she went to check on him after she didnt hear from him. The patient states he lives alone. He endorses a decreased appetite. He was admitted and had extensive course with acute renal failure and now with altered mental status. He has not been aware of location, date, and at bedside he was confused. CT head repeated and did not show acute changes. I reviewed MRI brain and showed moderate atrophy but no acute changes. He has Afib on Coumadin. Ammonia level checked and was normal. Over the weekend , transferred to ICU, required intubation and with acute respiratory failure. Remains awake and conversive but not fully at baseline mental status but improved. Currently extubated, monitor respiratory status and oxygen satuation. 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 Continue hydration and adequate PO intake. Continue medical optimization.
--- NOTE | 2017-06-04 11:58 | PN ---
Progress Note, Physician Chief Complaint: patient is awake alert stil has periods of confusion able to tell me his name and what he ate for breakfast he got confuse when he mentioned black eggs - Current Medication List Current Medications: Active Medications Albuterol/Ipratropium (Duoneb -) 1 amp NEB QIDR [facility] Last Admin: 06/04/17 06:45 Dose: 1 amp Apixaban (Eliquis -) 5 mg PO BID [facility] Last Admin: 06/04/17 10:03 Dose: 5 mg Artificial Tears (Artificial Tears) 1 drop OU BID PRN PRN Reason: DRY EYES Diltiazem HCl (Cardizem Cd -) 240 mg PO DAILY [facility] Last Admin: 06/04/17 10:03 Dose: 240 mg Sodium Chloride (1/2 Normal Saline) 1,000 mls @ 100 mls/hr IV ASDIR [facility] Last Admin: 06/04/17 10:02 Dose: 100 mls/hr Nicotine (Nicoderm Patch -) 14 mg TD DAILY [facility] Last Admin: 06/04/17 10:03 Dose: 14 mg Nystatin (Nystatin Oral Suspension -) 500,000 units PO Q6HPO [facility] Last Admin: 06/04/17 06:34 Dose: 500,000 units Pantoprazole Sodium (Protonix -) 40 mg PO DAILY [facility] Last Admin: 06/04/17 10:03 Dose: 40 mg Polyethylene Glycol (Miralax (For Daily Use) -) 17 gm PO DAILY [facility] Last Admin: 06/04/17 10:00 Dose: 17 grams Potassium Chloride (K-Dur -) 40 meq PO DAILY [facility] Last Admin: 06/04/17 10:02 Dose: 40 meq - Objective Vital Signs: Vital Signs Temperature 98.4 F 06/04/17 07:49 Pulse Rate 106 H 06/04/17 07:49 Respiratory Rate 18 06/04/17 07:49 Blood Pressure 170/96 06/04/17 07:49 O2 Sat by Pulse Oximetry (%) 96 06/03/17 22:00 Constitutional: Yes: Calm Neck: Yes: Trachea Midline Cardiovascular: Yes: Regular Rate and Rhythm, S1, S2 Respiratory: Yes: CTA Bilaterally Gastrointestinal: Yes: Normal Bowel Sounds, Soft Genitourinary: Yes: Dutton Present Edema: No Neurological: Yes: Confusion Labs: CBC, BMP 06/04/17 06:00 06/04/17 07:00 INR, PTT INR 1.08 (0.82-1.09) 05/30/17 06:40 Problem List - Problems (1) Prostate cancer Assessment/Plan: aadenocarcinoma to get bone scan today and then radiation oncology to see patient spoke to daughter in detail Code(s): C61 - MALIGNANT NEOPLASM OF PROSTATE (2) Atrial fibrillation with RVR Assessment/Plan: cardizem and eliquis Code(s): I48.91 - UNSPECIFIED ATRIAL FIBRILLATION (3) Hydronephrosis Assessment/Plan: s/p bilateral JJ stents has dutton prostate bx show adenocarcinoma oncology consult appreciated bone scan pending urology FU spoke to daughter in detail about the results Code(s): N13.30 - UNSPECIFIED HYDRONEPHROSIS Qualifiers: Hydronephrosis type: unspecified Qualified Code(s): N13.30 - Unspecified hydronephrosis (4) Diastolic CHF Assessment/Plan: hydralazine. Code(s): I50.30 - UNSPECIFIED DIASTOLIC (CONGESTIVE) HEART FAILURE Qualifiers : Congestive heart failure chronicity: chronic Qualified Code(s): I50.32 - Chronic diastolic (congestive) heart failure (5) Acute renal failure Assessment/Plan: s/p SILAS now on IVF Code(s): N17.9 - ACUTE KIDNEY FAILURE, UNSPECIFIED Qualifiers: Acute renal failure type: unspecified
--- NOTE | 2017-06-04 13:31 | PN ---
Physical Exam: SUBJECTIVE: Patient seen and examined sitting comfortably in bed Having lunch No new complaint Denies chest pain, sob, nausea, vomiting, swelling in legs. [place] cath in situ, had clear urine. OBJECTIVE: Vital Signs Period Temp Pulse Resp BP Sys/Ching Pulse Ox Last 24 Hr 97.5 F-98.9 F 88-106 18-20 126-170/57-102 95-98 GENERAL: The patient is awake, alert, and fully oriented, in no acute distress. ENT: dry mucous membranes. LUNGS: Breath sounds equal, clear to auscultation bilaterally, no wheezes, no crackles, no accessory muscle use. HEART: Regular rate and rhythm, S1, S2 without murmur, rub or gallop. ABDOMEN: Soft, nontender, nondistended, normoactive bowel sounds, no guarding, no rebound, EXTREMITIES: warm, well-perfused, no edema. PSYCH: Normal mood, normal affect. SKIN: Warm, dry, Laboratory Results - last 24 hr 06/04/17 06/04/17 06:00 07:00 WBC 10.7 H RBC 3.72 L Hgb 11.7 Hct 34.1 L MCV 91.8 MCH 31.4 MCHC 34.2 RDW 13.8 Plt Count 305 MPV 8.4 Sodium 139 Potassium 4.0 Chloride 104 Carbon Dioxide 25 Anion Gap 10 BUN 23 H D Creatinine 1.7 H D Creat Clearance w eGFR 39.60 Random Glucose 107 H D Calcium 9.1 Phosphorus 2.2 L Magnesium 2.2 Total Bilirubin 1.0 D AST 18 ALT 33 Alkaline Phosphatase 75 Total Protein 5.6 L Albumin 2.7 L Active Medications Generic Name Dose Route Start Last Admin Trade Name Freq PRN Reason Stop Dose Admin Albuterol/Ipratropium 1 amp 06/03/17 12:00 06/04/17 11:50 Duoneb - NEB 1 amp QIDR BURKE Administration Apixaban 5 mg 05/30/17 13:45 06/04/17 10:03 Eliquis - PO 5 mg BID BURKE Administration Artificial Tears 1 drop 05/24/17 18:36 Artificial Tears OU BID PRN DRY EYES Diltiazem HCl 240 mg 05/25/17 10:00 06/04/17 10:03 Cardizem Cd - PO 240 mg DAILY BURKE Administration Sodium Chloride 1,000 mls @ 100 mls/hr 06/01/17 10:30 06/04/17 10:02 1/2 Normal Saline IV 100 mls/hr ASDIR BURKE Administration Nicotine 14 mg 05/25/17 10:00 06/04/17 10:03 Nicoderm Patch - TD 14 mg DAILY BURKE Administration Pantoprazole Sodium 40 mg 05/25/17 10:00 06/04/17 10:03 Protonix - PO 40 mg DAILY BURKE Administration Polyethylene Glycol 17 gm 05/25/17 13:45 06/04/17 10:00 Miralax (For Daily Use) - PO 17 grams DAILY BURKE Administration Potassium Chloride 40 meq 05/29/17 11:03 06/04/17 10:02 K-Dur - PO 40 meq DAILY BURKE Administration Intake & Output 06/01/17 06/02/17 06/03/17 06/04/17 23:59 23:59 23:59 23:59 Intake Total 2333 3067 2000 1200 Output Total 400 2300 900 500 Balance 9317 125 1493 700 Weight 253 lb 8.505 oz 253 lb 12.033 oz 265 lb 6.4 oz 262 lb 4 oz ASSESSMENT/PLAN: - Problems (1) Acute renal failure in setting of uretral orifice obstruction from bladder vs. tumor mass (2) Atrial fibrillation with RVR (3) HTN (hypertension) (4) Hyperkalemia (5) Uremia (6) Metabolic acidosis (7) Hyperphosphatemia (8) Hyponatremia (9)prostate ca Plan creatnine has increased from 1.2 to 1.7. Patinet is on Iv fluid 100ml/hr. continue with IV fluid Avoid nephrotoxic drugs. Monitor renal function. Monitor intake and output. bladder biopsy and pelvic mass biopsy reviewed. Urology and oncology on case. Visit type - Emergency Visit Emergency Visit: Yes ED Registration Date: 05/17/17 Care time: The patient presented to the Emergency Department on the above date and was hospitalized for further evaluation of their emergent condition. - New Patient This patient is new to me today: No - Critical Care Critical Care patient: No
[2017-06-04] MEDS ORDERED: NAPH,MB-DB/K PH,MBDB POWDER PACKET PO ONE (14:30)
--- NOTE | 2017-06-04 14:52 | PN ---
Progress Note, Physician Chief Complaint: Not in distress History of Present Illness: Patient was seen and examined. Awake. Chart was reviewed Denies chest pain, SOB or palpitations - Current Medication List Current Medications: Active Medications Albuterol/Ipratropium (Duoneb -) 1 amp NEB QIDR [facility] Last Admin: 06/04/17 11:50 Dose: 1 amp Apixaban (Eliquis -) 5 mg PO BID [facility] Last Admin: 06/04/17 10:03 Dose: 5 mg Artificial Tears (Artificial Tears) 1 drop OU BID PRN PRN Reason: DRY EYES Diltiazem HCl (Cardizem Cd -) 240 mg PO DAILY [facility] Last Admin: 06/04/17 10:03 Dose: 240 mg Sodium Chloride (1/2 Normal Saline) 1,000 mls @ 100 mls/hr IV ASDIR [facility] Last Admin: 06/04/17 10:02 Dose: 100 mls/hr Nicotine (Nicoderm Patch -) 14 mg TD DAILY [facility] Last Admin: 06/04/17 10:03 Dose: 14 mg Pantoprazole Sodium (Protonix -) 40 mg PO DAILY [facility] Last Admin: 06/04/17 10:03 Dose: 40 mg Polyethylene Glycol (Miralax (For Daily Use) -) 17 gm PO DAILY [facility] Last Admin: 06/04/17 10:00 Dose: 17 grams Potassium Chloride (K-Dur -) 40 meq PO DAILY [facility] Last Admin: 06/04/17 10:02 Dose: 40 meq - Objective Vital Signs: Vital Signs Temperature 99.4 F 06/04/17 13:52 Pulse Rate 109 H 06/04/17 13:52 Respiratory Rate 18 06/04/17 07:49 Blood Pressure 139/74 06/04/17 13:52 O2 Sat by Pulse Oximetry (%) 98 06/04/17 11:50 Cardiovascular: Yes: Pulse Irregular, S1, S2 Respiratory: Yes: Diminished Gastrointestinal: Yes: Normal Bowel Sounds, Soft. No: Tenderness Edema: No Labs: CBC, BMP 06/04/17 06:00 06/04/17 07:00 Problem List - Problems (1) Acute renal failure Code(s): N17.9 - ACUTE KIDNEY FAILURE, UNSPECIFIED Qualifiers: Acute renal failure type: unspecified Qualified Code(s): N17.9 - Acute kidney failure, unspecified (2) Atrial fibrillation with RVR Code(s): I48.91 - UNSPECIFIED ATRIAL FIBRILLATION (3) Confusion Code(s): R41.0 - DISORIENTATION, UNSPECIFIED (4) HTN (hypertension) Code(s): I10 - ESSENTIAL (PRIMARY) HYPERTENSION Qualifiers: Hypertension type: essential hypertension Qualified Code(s): I10 - Essential (primary) hypertension (5) Hyperkalemia Code(s): E87.5 - HYPERKALEMIA (6) Uremia Code(s): N19 - UNSPECIFIED KIDNEY FAILURE (7) Diabetes Code(s): E11.9 - TYPE 2 DIABETES MELLITUS WITHOUT COMPLICATIONS Qualifiers: Diabetes mellitus type: type 2 Diabetes mellitus complication status: without complication (8) Supratherapeutic INR Code(s): R79.1 - ABNORMAL COAGULATION PROFILE Assessment/Plan 1. Acute renal failure (post obstructive) requiring temporary HD 2. Digoxin toxicity - resolved 3. Hyperkalemia and supratherapeutic INR - now resolved - INR normalized 4. Altered mental status/toxic metabolic encephalopathy - due to uremia - now improved 5. Permanent atrial fibrillation with variable ventricular response 6. History of hypertension 7. COPD/emphysema with history of exacerbation 8. Type 2 diabetes mellitus 9. Post respiratory failure extubated yesterday 10. Pelvic mass with extrinsic ureteral compression and hydronephrosis post intervention - post bilateral stents, bladder biopsy PLAN: 1. Monitor renal function and electrolytes. Management as per Renal service. 2. Continue Cardizem CD and titrate 3. Currently on Eliquis 5 mg BID 4. Consider ACEI or ARB once renal function stabilizes 5. Pathology to assess pelvic mass to follow Guarded Further plans are to follow Han Nowak MD
[2017-06-04] MEDS ORDERED: SODIUM CHLORIDE 0.45% 1,000 ML IV SCH (16:00)
--- NOTE | 2017-06-04 16:00 | PN ---
Progress Note (short form) - Note Progress Note: Renal Follow up for SILAS Pt seen and examined at the bedside pt is very confused, oriented x 2 (not to place) dutton in place with good urine output Vital Signs Temperature 99.4 F 06/04/17 13:52 Pulse Rate 109 H 06/04/17 13:52 Respiratory Rate 18 06/04/17 07:49 Blood Pressure 139/74 06/04/17 13:52 O2 Sat by Pulse Oximetry (%) 98 06/04/17 11:50 Intake & Output 06/01/17 06/02/17 06/03/17 06/04/17 23:59 23:59 23:59 23:59 Intake Total 2333 3067 2000 1850 Output Total 400 2300 900 900 Balance 0428 736 6103 950 Weight 253 lb 8.505 oz 253 lb 12.033 oz 265 lb 6.4 oz 262 lb 4 oz Gen: awake and alert CVS: RRR Lungs: CTA, anterior exam Abd: soft NT/ND Ext: No edema, clubbing or cyanosis : dutton in place CBC, BMP 06/04/17 06:00 06/04/17 07:00 Laboratory Tests 06/04/17 07:00 Calcium 9.1 Phosphorus 2.2 L Magnesium 2.2 Current Medications Albuterol/Ipratropium (Duoneb -) 1 amp NEB QIDR [facility] Last Admin: 06/04/17 11:50 Dose: 1 amp Apixaban (Eliquis -) 5 mg PO BID [facility] Last Admin: 06/04/17 10:03 Dose: 5 mg Artificial Tears (Artificial Tears) 1 drop OU BID PRN PRN Reason: DRY EYES Diltiazem HCl (Cardizem Cd -) 240 mg PO DAILY [facility] Last Admin: 06/04/17 10:03 Dose: 240 mg Sodium Chloride (1/2 Normal Saline) 1,000 mls @ 50 mls/hr IV ASDIR [facility] Stop: 06/05/17 15:56 Nicotine (Nicoderm Patch -) 14 mg TD DAILY [facility] Last Admin: 06/04/17 10:03 Dose: 14 mg Pantoprazole Sodium (Protonix -) 40 mg PO DAILY [facility] Last Admin: 06/04/17 10:03 Dose: 40 mg Polyethylene Glycol (Miralax (For Daily Use) -) 17 gm PO DAILY [facility] Last Admin: 06/04/17 10:00 Dose: 17 grams Potassium Chloride (K-Dur -) 40 meq PO DAILY [facility] Last Admin: 06/04/17 10:02 Dose: 40 meq Potassium Phos/Sodium Phos (Phos-Nak Packet -) 1 packet PO TID [facility] Stop: 06/06/17 14:01 A/P 76 year old gentleman with PMhx of Afib on Coumadin, COPD, Hyperlipidemia, DM Type 2, Hypertension who presented with AMS and found to have BUN/Cr of 109/11 and K of 7.8. 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 Cr odin to 1.7, etiology unclear no overt hypotension, Nephrotoxin exposure continue hypotonic IVF #Bladder/Prostate mass Biopsy reports consistent with adenocarcinoma of the prostate Thank you Donta Carmona Problem List - Problems (1) Acute renal failure Code(s): N17.9 - ACUTE KIDNEY FAILURE, UNSPECIFIED Qualifiers: Acute renal failure type: unspecified Qualified Code(s): N17.9 - Acute kidney failure, unspecified (2) Atrial fibrillation with RVR Code(s): I48.91 - UNSPECIFIED ATRIAL FIBRILLATION (3) HTN (hypertension) Code(s): I10 - ESSENTIAL (PRIMARY) HYPERTENSION Qualifiers: Hypertension type: essential hypertension Qualified Code(s): I10 - Essential (primary) hypertension (4) Hyperkalemia Code(s): E87.5 - HYPERKALEMIA (5) Uremia Code(s): N19 - UNSPECIFIED KIDNEY FAILURE (6) Metabolic acidosis Code(s): E87.2 - ACIDOSIS (7) Hyperphosphatemia Code(s): E83.39 - OTHER DISORDERS OF PHOSPHORUS METABOLISM (8) Hyponatremia Code(s): E87.1 - HYPO-OSMOLALITY AND HYPONATREMIA
--- NOTE | 2017-06-04 17:47 | PN ---
Progress Note (short form) - Note Progress Note: Radiation Oncology Pt seen, chart/films reviewed, full consult to follow. 76yo gentleman with multiple medical issues admitted with AMS and obstructive uropathy/renal insufficiency s/p dialysis and ureteral stents and s/p intubation in ICU for acute respiratory failure. Workup showed a large pelvic mass adjacent/emanating from prostate likely causing the outlet obstruction. CT- bx was done and c/w prostate adenocarcinoma. Will d/w pathology Myles grade but agree with bone scan. Would also check PSA for baseline. Would likely be a candidate for daily external beam radiation therapy to the mass for palliation of obstruction. Unclear if there's a role for more definitive tx at this point. Await bone scan and further discussion with family on goals of care given multiple comorbidities. Will need to consider STR. Will follow up.
[2017-06-05] MEDS: ALBUTEROL SO4 2.5/IPRATROPIUM 0.5 INH SOL 3 ML VIAL.NEB. NEB SCH ×4 (07:37→18:47)
[2017-06-05] MEDS: NAPH,MB-DB/K PH,MBDB POWDER PACKET PO SCH ×3 (07:37→21:32)
[2017-06-05 08:18] LABS: BASOPHIL 0.9 % (0-2.0); EOSINOPHIL 2.1 % (0-4.5); MCH 31.5 pg (25.7-33.7); MCHC 34.5 g/dl (32.0-35.9); MEAN CELL VOLUME 91.2 fl (80-96); NEUTROPHILS 78.8 % (42.8-82.8); PLATELET COUNT 331 K/MM3 (134-434); RDW 13.6 % (11.9-15.9); WHITE BLOOD COUNT 11.5 K/mm3 (4.0-10.0)
[2017-06-05 09:04] LABS: ALBUMIN 2.8 g/dl (3.4-5.0); ANION GAP 11 (8-16); BILIRUBIN,TOTAL 1.4 mg/dL (0.2-1.0); CO2 24 mmol/L (21-32); GLUCOSE,RANDOM 109 mg/dL (74-106); PHOSPHOROUS 2.9 mg/dL (2.5-4.9); SGOT/AST 18 U/L (15-37); SGPT/ALT 28 U/L (12-78); TOT PROT 5.8 g/dl (6.4-8.2)
[2017-06-05 09:05] LABS: ALK PHOS 77 U/L (45-117); MAGNESIUM 2.3 mg/dL (1.8-2.4)
--- NOTE | 2017-06-05 10:04 | CONS ---
DATE OF CONSULTATION: 06/04/2017 REFERRING PHYSICIAN: Shelia Hilliard MD REASON FOR CONSULTATION: Obstructive uropathy secondary to prostate cancer. HISTORY OF PRESENT ILLNESS: The patient is a 76-year-old gentleman who was admitted with altered mental status and obstructive uropathy, renal failure with bilateral hydroureteronephrosis status post cystoscopy and biopsy and bilateral ureteral stents and hemodialysis. A CT-guided pelvic biopsy demonstrates adenocarcinoma of the prostate. His workup includes MRI of the brain, which was negative, CT of the chest, which was negative, CT of the abdomen and pelvis and bladder ultrasound which revealed bilateral hydroureteronephrosis, surgical clips, soft tissue pelvic mass superior and posterior to the bladder possibly originating from the prostate, but no lymphadenopathy. Prostate measures 112 cc with a 7-cm exophytic prostate mass. The bone scan is awaited. During his hospitalization, he was admitted to the intensive care unit and intubated for acute respiratory failure. He is now extubated and on the regular floor. He remains confused and followed by multiple specialists including neurology, urology and nephrology. PAST MEDICAL HISTORY: Atrial fibrillation, hypertension, hyperlipidemia, COPD, diverticulitis status post laparotomy, diabetes mellitus. PAST SURGICAL HISTORY: Laparotomy for diverticulitis. ALLERGIES: AMOXICILLIN. CURRENT MEDICATIONS: Eliquis, NicoDerm patch, Duo-Neb nebulizer, Cardizem, MiraLAX, Protonix. SOCIAL HISTORY: He is . He has 3 children. He is retired. He does not smoke or use alcohol. Patient was living alone at home. His daughter lives [facility]. FAMILY HISTORY: He denies malignancy. REVIEW OF SYSTEMS: He denies nausea, headaches, shortness of breath, abdominal and pelvic pain, difficulty moving his bowels, flank pain, dysuria. He has a [place]. PHYSICAL EXAMINATION General: Chronically ill-appearing, elderly male in no acute distress. Vital signs: Temperature 99.4, blood pressure 139/74, pulse 109, respiratory rate 18, SaO2 at 98% on room air. HEENT: Normocephalic and atraumatic. Moist mucous membranes. Anicteric sclerae. Clear oral cavity. Neck: Supple, no mass. Chest: Clear. No axillary adenopathy. Cardiovascular: Irregular. Abdomen: Well-healed infraumbilical surgical incision. No inguinal adenopathy. Soft, nontender, nondistended. [place] is draining clear yellow urine. Extremities: No peripheral edema. Musculoskeletal: No spine, CVA, or flank tenderness. Neurologic: Alert, oriented to name, city, state, and president, but not to year of or current year. Mild dysarthria with stutter. He follows simple commands, answers all questions, responds appropriately. Poor long-term memory. Intact concentration. Cranial nerves 2-12 grossly intact. No gross sensory motor deficit. LABORATORY DATA: WBC 10.7, hemoglobin 11.7, platelet count 305,000. Electrolytes within normal limits, BUN 23, creatinine 1.7. Liver function tests within normal limits. Albumin 2.7. RADIOLOGIC DATA: See HPI. PATHOLOGIC DATA: See HPI. IMPRESSION: A 76-year-old gentleman with multiple medical issues admitted with altered mental status and obstructive uropathy and renal insufficiency status post dialysis and ureteral stents, status post intubation for acute respiratory failure, with persistent confusion. Workup demonstrates a large pelvic mass adjacent or emanating from the prostate likely causing the outlet obstruction. Biopsy of the mass confirms a prostate adenocarcinoma. PLAN: I will discuss with Pathology the Myles grade, but agree with proceeding with the bone scan to rule out metastatic disease. I would also check the PSA for a baseline level. He would likely be a candidate for daily external beam radiation therapy to the mass for palliation of the obstruction. It is unclear if there is a role for more definitive treatment at this point. We will await the bone scan and further discussion with the family on goals of care given his multiple comorbidities. He will benefit from short-term rehabilitation. I will follow the patient with you. Thank you for asking me to see this patient. VIRA KLEIN M.D. [id number] MTDD
[2017-06-05] MEDS: NICOTINE 14 MG/24 HOURS TOPICAL PATCH TD SCH (10:11)
[2017-06-05] MEDS: PANTOPRAZOLE 40 MG TABLET (FP) PO SCH (10:11)
[2017-06-05] MEDS: POLYETHYLENE GLYCOL 3350 119 GM BTL PO SCH (10:11)
--- NOTE | 2017-06-05 10:30 | PN ---
Progress Note (short form) - Note Progress Note: Neurology History of Present Illness The patient is a 76 yo M poor historian with a past medical history significant for chronic AF on anticoagulation, emphysema with long history of cigarette smoking, diverticulitis, hypercholesterolemia, type 2 DM and HTN who presents with confusion. As per the patients daughter, she went to check on him after she didnt hear from him. The patient states he lives alone. He endorses a decreased appetite. He was admitted and had extensive course with acute renal failure and I was consulted for altered mental status. He had not been aware of location, date, and at bedside he was confused. CT head repeated and did not show acute changes. MRI brain completed and showed moderate atrophy but no acute changes. He has Afib on Coumadin. Ammonia level checked and was normal. Over the weekend, transferred to ICU, required intubation and with acute respiratory failure but has improved since then downgraded to floor status and remains awake and conversive but not fully aware. CAn tell me he's at [place] today and name of President but is tangential in thought process. Completed CT head again and did not show acute changes. Active Medications Albuterol/Ipratropium (Duoneb -) 1 amp NEB QIDR [facility] Apixaban (Eliquis -) 5 mg PO BID [facility] Artificial Tears (Artificial Tears) 1 drop OU BID PRN PRN Reason: DRY EYES Diltiazem HCl (Cardizem Cd -) 240 mg PO DAILY [facility] Last Admin: 06/05/17 10:11 Dose: 240 mg Sodium Chloride (1/2 Normal Saline) 1,000 mls @ 50 mls/hr IV ASDIR [facility] Stop: 06/05/17 15:56 Last Admin: 06/04/17 18:23 Dose: Not Given Nicotine (Nicoderm Patch -) 14 mg TD DAILY [facility] Last Admin: 06/05/17 10:11 Dose: 14 mg Pantoprazole Sodium (Protonix -) 40 mg PO DAILY [facility] Last Admin: 06/05/17 10:11 Dose: 40 mg Polyethylene Glycol (Miralax (For Daily Use) -) 17 gm PO DAILY [facility] Last Admin: 06/05/17 10:11 Dose: 17 gm Potassium Phos/Sodium Phos (Phos-Nak Packet -) 1 packet PO TID [facility] Stop: 06/06/17 14:01 Last Admin: 06/05/17 07:37 Dose: Not Given *Physical Exam Vital Signs Temperature 98.3 F 06/05/17 06:00 Pulse Rate 84 06/05/17 06:00 Respiratory Rate 20 06/05/17 06:00 Blood Pressure 164/96 06/05/17 06:00 O2 Sat by Pulse Oximetry (%) 98 06/04/17 22:00 Well developed, well nourished. alert to person and place but not time. Afebrile. No acute distress. HEENT: Normocephalic, atraumatic. PERRLA, EOMI. No conjunctival pallor. Sclera are non- icteric. Moist mucous membranes. Oropharynx is clear. NECK: Supple. Full ROM. No JVD. Carotid pulses 2+ and symmetric, without bruits. No thyromegaly. No lymphadenopathy. CARDIOVASCULAR: Regular rate and rhythm. No murmurs, rubs, or gallops. Distal pulses are 2+ and symmetric. PULMONARY: No evidence of respiratory distress. Bilateral crackles. No wheezing, rales or rhonchi. ABDOMINAL: Soft. Non-tender. Non-distended. No rebound or guarding. No organomegaly. Normoactive bowel sounds. Old surgical scars on abdomen. MUSCULOSKELETAL Normal range of motion at all joints. No bony deformities or tenderness. No CVA tenderness. EXTREMITIES: No cyanosis. No clubbing. No edema. No calf tenderness. SKIN: Warm and dry. Normal capillary refill. No rashes. No jaundice. NEUROLOGICAL: Following commands, moving all extremities and responds to questions, CN intact , sensory nml, gait deferred CBCD WBC 11.5 K/mm3 (4.0-10.0) H 06/05/17 06:30 RBC 3.54 M/mm3 (4.00-5.60) L 06/05/17 06:30 Hgb 11.1 GM/dL (11.7-16.9) L 06/05/17 06:30 Hct 32.3 % (35.4-49) L 06/05/17 06:30 MCV 91.2 fl (80-96) 06/05/17 06:30 MCHC 34.5 g/dl (32.0-35.9) 06/05/17 06:30 RDW 13.6 % (11.9-15.9) 06/05/17 06:30 Plt Count 331 K/MM3 (134-434) 06/05/17 06:30 MPV 8.0 fl (7.5-11.1) 06/05/17 06:30 CMP Sodium 141 mmol/L (136-145) 06/05/17 06:30 Potassium 4.4 mmol/L (3.5-5.1) 06/05/17 06:30 Chloride 106 mmol/L (98-107) 06/05/17 06:30 Carbon Dioxide 24 mmol/L (21-32) 06/05/17 06:30 Anion Gap 11 (8-16) 06/05/17 06:30 BUN 29 mg/dL (7-18) H D 06/05/17 06:30 Creatinine 3.0 mg/dL (0.7-1.3) H D 06/05/17 06:30 Creat Clearance w eGFR 20.56 (>60) 06/05/17 06:30 Calcium 9.0 mg/dL (8.5-10.1) 06/05/17 06:30 Total Bilirubin 1.4 mg/dL (0.2-1.0) H D 06/05/17 06:30 AST 18 U/L (15-37) 06/05/17 06:30 ALT 28 U/L (12-78) 06/05/17 06:30 Alkaline Phosphatase 77 U/L (45-117) 06/05/17 06:30 Total Protein 5.8 g/dl (6.4-8.2) L 06/05/17 06:30 Albumin 2.8 g/dl (3.4-5.0) L 06/05/17 06:30 - RADIOLOGY CT head and MRI brain reviewed Medical Decision Making 76 yo M poor historian with a past medical history significant for chronic AF on anticoagulation, emphysema with long history of cigarette smoking, diverticulitis, hypercholesterolemia, type 2 DM and HTN who presents with confusion. As per the patients daughter, she went to check on him after she didnt hear from him. The patient states he lives alone. He endorses a decreased appetite. He was admitted and had extensive course with acute renal failure and now with altered mental status. He has not been aware of location, date, and at bedside he was confused. CT head repeated and did not show acute changes. I reviewed MRI brain and showed moderate atrophy but no acute changes. He has Afib on Coumadin. Ammonia level checked and was normal. Over the weekend , transferred to ICU, required intubation and with acute respiratory failure. Remains awake and conversive but not fully at baseline mental status but improved. Currently extubated, monitor respiratory status and oxygen satuation. 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 Continue hydration and adequate PO intake. Continue medical optimization.
--- NOTE | 2017-06-05 11:10 | PN ---
Physical Exam: SUBJECTIVE: Patient seen and examined Lying comfortably in bed. denies pain abdomen, nausea, vomiting. dutton cath in situ clean urine. OBJECTIVE: Vital Signs Period Temp Pulse Resp BP Sys/Ching Pulse Ox Last 24 Hr 97.6 F-99.4 F 84-109 18-20 124-164/74-96 98-98 GENERAL: The patient is awake, alert, and fully oriented, in no acute distress. ENT: dry mucous membranes. LUNGS: Breath sounds equal, clear to auscultation bilaterally, no wheezes, no crackles, no accessory muscle use. HEART: s1s2 normal. ABDOMEN: Soft, nontender, nondistended, normoactive bowel sounds, no guarding, no rebound, bladder not palpable. EXTREMITIES: warm, well-perfused, no edema. PSYCH: Normal mood, normal affect. SKIN: Warm, dry, Laboratory Results - last 24 hr 06/04/17 06/05/17 06/05/17 14:00 06:30 06:30 WBC 11.5 H RBC 3.54 L Hgb 11.1 L Hct 32.3 L MCV 91.2 MCH 31.5 MCHC 34.5 RDW 13.6 Plt Count 331 MPV 8.0 Neutrophils % 78.8 Lymphocytes % 7.7 L Monocytes % 10.5 H Eosinophils % 2.1 Basophils % 0.9 Sodium 141 Potassium 4.4 Chloride 106 Carbon Dioxide 24 Anion Gap 11 BUN 29 H D Creatinine 3.0 H D Creat Clearance w eGFR 20.56 Random Glucose 109 H Calcium 9.0 Phosphorus 2.9 D Magnesium 2.3 Total Bilirubin 1.4 H D AST 18 ALT 28 Alkaline Phosphatase 77 Total Protein 5.8 L Albumin 2.8 L Prostate Specific Ag 203.40 H Active Medications Generic Name Dose Route Start Last Admin Trade Name Freq PRN Reason Stop Dose Admin Albuterol/Ipratropium 1 amp 06/05/17 12:00 Duoneb - NEB QIDR BURKE Apixaban 5 mg 06/05/17 10:00 Eliquis - PO BID B[facility] Artificial Tears 1 drop 06/05/17 07:41 Artificial Tears OU BID PRN DRY EYES Diltiazem HCl 240 mg 06/05/17 10:00 06/05/17 10:11 Cardizem Cd - PO 240 mg DAILY BURKE Administration Sodium Chloride 1,000 mls @ 50 mls/hr 06/04/17 16:00 06/04/17 18:23 1/2 Normal Saline IV 06/05/17 15:56 Not Given ASDIR BURKE Nicotine 14 mg 06/05/17 10:00 06/05/17 10:11 Nicoderm Patch - TD 14 mg DAILY [facility]KE Administration Pantoprazole Sodium 40 mg 06/05/17 10:00 06/05/17 10:11 Protonix - PO 40 mg DAILY BURKE Administration Polyethylene Glycol 17 gm 06/05/17 10:00 06/05/17 10:11 Miralax (For Daily Use) - PO 17 gm DAILY B[facility]KE Administration Potassium Phos/Sodium Phos 1 packet 06/04/17 22:00 06/05/17 07:37 Phos-Nak Packet - PO 06/06/17 14:01 Not Given TID BURKE Intake & Output 06/02/17 06/03/17 06/04/17 06/05/17 23:59 23:59 23:59 23:59 Intake Total 3067 2000 2450 350 Output Total 2300 900 1300 300 Balance 767 1100 1150 50 Weight 253 lb 12.033 oz 265 lb 6.4 oz 262 lb 4 oz 250 lb 1 oz ASSESSMENT/PLAN: (1) Acute renal failure in setting of uretral orifice obstruction from bladder vs. tumor mass (2) Atrial fibrillation with RVR (3) HTN (hypertension) (4) Hyperkalemia (5) Uremia (6) Metabolic acidosis (7) Hyperphosphatemia (8) Hyponatremia (9)prostate ca Plan creatnine has increased to 3.0. He is not on nephrotoxic drugs, urine is clear. Will repeat Ultrasound kideny and bladder to look for hydronephrosis or blockage of Stent. clinically patient look euvolemic. Dutton cath has clean urine. Bladder is not palpable. Not sure for reason for rise in creatnine. Avoid nephrotoxic drugs. Monitor renal function. Monitor intake and output. bladder biopsy and pelvic mass biopsy reviewed. Urology and oncology on case. Visit type - Emergency Visit Emergency Visit: Yes ED Registration Date: 05/17/17 Care time: The patient presented to the Emergency Department on the above date and was hospitalized for further evaluation of their emergent condition. - New Patient This patient is new to me today: No - Critical Care Critical Care patient: No
--- NOTE | 2017-06-05 14:09 | PN ---
Progress Note, Physician History of Present Illness: Remains in rate-controlled afib, denies chest pain or dyspnea. Sensorium waxes and wanes. CT-guided biopsy confirms prostate adenocarcinoma. - Current Medication List Current Medications: Active Medications Albuterol/Ipratropium (Duoneb -) 1 amp NEB QIDR [facility] Last Admin: 06/05/17 11:47 Dose: 1 amp Apixaban (Eliquis -) 5 mg PO BID [facility] Artificial Tears (Artificial Tears) 1 drop OU BID PRN PRN Reason: DRY EYES Diltiazem HCl (Cardizem Cd -) 240 mg PO DAILY [facility] Last Admin: 06/05/17 10:11 Dose: 240 mg Sodium Chloride (1/2 Normal Saline) 1,000 mls @ 50 mls/hr IV ASDIR [facility] Stop: 06/05/17 15:56 Last Admin: 06/04/17 18:23 Dose: Not Given Nicotine (Nicoderm Patch -) 14 mg TD DAILY [facility] Last Admin: 06/05/17 10:11 Dose: 14 mg Pantoprazole Sodium (Protonix -) 40 mg PO DAILY [facility] Last Admin: 06/05/17 10:11 Dose: 40 mg Polyethylene Glycol (Miralax (For Daily Use) -) 17 gm PO DAILY [facility] Last Admin: 06/05/17 10:11 Dose: 17 gm Potassium Phos/Sodium Phos (Phos-Nak Packet -) 1 packet PO TID [facility] Stop: 06/06/17 14:01 Last Admin: 06/05/17 07:37 Dose: Not Given - Objective Vital Signs: Vital Signs Temperature 98.3 F 06/05/17 06:00 Pulse Rate 118 H 06/05/17 11:45 Respiratory Rate 20 06/05/17 06:00 Blood Pressure 164/96 06/05/17 06:00 O2 Sat by Pulse Oximetry (%) 93 L 06/05/17 11:45 Constitutional: Yes: No Distress, Calm Neck: Yes: Supple Cardiovascular: Yes: Pulse Irregular Respiratory: Yes: Regular, Diminished Gastrointestinal: Yes: Normal Bowel Sounds, Soft Edema: No Labs: CBC, BMP 06/05/17 06:30 06/05/17 06:30 INR, PTT INR 1.08 (0.82-1.09) 05/30/17 06:40 - ....Imaging Cat Scan: Report Reviewed (HCT: NO acute changes) Problem List - Problems (1) Acute renal failure Code(s): N17.9 - ACUTE KIDNEY FAILURE, UNSPECIFIED Qualifiers: Acute renal failure type: unspecified Qualified Code(s): N17.9 - Acute kidney failure, unspecified (2) Atrial fibrillation with RVR Code(s): I48.91 - UNSPECIFIED ATRIAL FIBRILLATION (3) Diastolic CHF Code(s): I50.30 - UNSPECIFIED DIASTOLIC (CONGESTIVE) HEART FAILURE Qualifiers : Congestive heart failure chronicity: chronic Qualified Code(s): I50.32 - Chronic diastolic (congestive) heart failure (4) HTN (hypertension) Code(s): I10 - ESSENTIAL (PRIMARY) HYPERTENSION Qualifiers: Hypertension type: essential hypertension Qualified Code(s): I10 - Essential (primary) hypertension (5) Hydronephrosis Code(s): N13.30 - UNSPECIFIED HYDRONEPHROSIS Qualifiers: Hydronephrosis type: unspecified Qualified Code(s): N13.30 - Unspecified hydronephrosis (6) Pelvic mass Code(s): R19.00 - INTRA-ABD AND PELVIC SWELLING, MASS AND LUMP, UNSP SITE (7) Uremia Code(s): N19 - UNSPECIFIED KIDNEY FAILURE (8) Prostate cancer Code(s): C61 - MALIGNANT NEOPLASM OF PROSTATE Assessment/Plan 1. Acute renal failure (post obstructive) requiring temporary HD 2. Digoxin toxicity - resolved 3. Hyperkalemia and supratherapeutic INR - now resolved - INR normalized 4. Altered mental status/toxic metabolic encephalopathy - due to uremia - now improved 5. Permanent atrial fibrillation with variable ventricular response 6. History of hypertension 7. COPD/emphysema with history of exacerbation 8. Type 2 diabetes mellitus 9. Post respiratory failure extubated yesterday 10. Prostate adenocarcinoma with extrinsic ureteral compression and hydronephrosis post intervention - post bilateral stents, bladder biopsy PLAN: 1. IVF, monitor renal function and electrolytes. Management as per Renal service. 2. Continue Cardizem CD 240 qd and titrate as tolerated 3. Currently on Eliquis 5 mg BID 4. Consider ACEI or ARB once renal function stabilizes 5. F/u bone scan, noted elevated PSA 203, rad onc recommends daily external beam radiation therapy to the mass for palliation of obstruction
[2017-06-05] MEDS ORDERED: PT OWN MED DRAWER 7, Y5N ONE (14:10)
[2017-06-05] MEDS: APIXABAN 5 MG TABLET PO SCH ×2 (14:11→21:32)
--- NOTE | 2017-06-05 16:00 | PN ---
Progress Note, Physician Chief Complaint: AMS, Acute renal failure, Prostate adenocarcinoma History of Present Illness: sitting in the wheelchair in the hallway due to earlier episode of agitation and trying to climb out of bed. NAD at this time. - Current Medication List Current Medications: Active Medications Albuterol/Ipratropium (Duoneb -) 1 amp NEB QIDR [facility] Last Admin: 06/05/17 11:47 Dose: 1 amp Apixaban (Eliquis -) 5 mg PO BID [facility] Last Admin: 06/05/17 14:11 Dose: 5 mg Artificial Tears (Artificial Tears) 1 drop OU BID PRN PRN Reason: DRY EYES Diltiazem HCl (Cardizem Cd -) 240 mg PO DAILY [facility] Last Admin: 06/05/17 10:11 Dose: 240 mg Sodium Chloride (1/2 Normal Saline) 1,000 mls @ 50 mls/hr IV ASDIR [facility] Stop: 06/05/17 15:56 Last Admin: 06/04/17 18:23 Dose: Not Given Nicotine (Nicoderm Patch -) 14 mg TD DAILY [facility] Last Admin: 06/05/17 10:11 Dose: 14 mg Pantoprazole Sodium (Protonix -) 40 mg PO DAILY [facility] Last Admin: 06/05/17 10:11 Dose: 40 mg Polyethylene Glycol (Miralax (For Daily Use) -) 17 gm PO DAILY [facility] Last Admin: 06/05/17 10:11 Dose: 17 gm Potassium Phos/Sodium Phos (Phos-Nak Packet -) 1 packet PO TID [facility] Stop: 06/06/17 14:01 Last Admin: 06/05/17 14:14 Dose: 1 packet - Objective Vital Signs: Vital Signs Temperature 98.4 F 06/05/17 15:08 Pulse Rate 106 H 06/05/17 15:08 Respiratory Rate 20 06/05/17 10:00 Blood Pressure 130/71 06/05/17 15:08 O2 Sat by Pulse Oximetry (%) 93 L 06/05/17 11:45 Constitutional: Yes: Well Nourished, No Distress, Calm Cardiovascular: Yes: Regular Rate and Rhythm Respiratory: Yes: Regular Gastrointestinal: Yes: Normal Bowel Sounds Musculoskeletal: Yes: WNL Extremities: Yes: WNL Edema: No Peripheral Pulses WNL: Yes Neurological: Yes: Alert, Confusion Psychiatric: Yes: Alert Labs: CBC, BMP 06/05/17 06:30 06/05/17 06:30 INR, PTT INR 1.08 (0.82-1.09) 05/30/17 06:40 Problem List - Problems (1) Acute renal failure Assessment/Plan: -BUN/Cr trending up -gentle IV fluids -s/p BL renal stents -Urine in dutton clear -seen by renal -repeat U/S renal pending -monitor BUN/Cr Code(s): N17.9 - ACUTE KIDNEY FAILURE, UNSPECIFIED Qualifiers: Acute renal failure type: unspecified Qualified Code(s): N17.9 - Acute kidney failure, unspecified (2) Atrial fibrillation with RVR Assessment/Plan: -chronic -started on Eliquis BID -on Cardizem po, Metoprolol not indicated at this time,rate is controlled Code(s): I48.91 - UNSPECIFIED ATRIAL FIBRILLATION (3) Generalized weakness Code(s): R53.1 - WEAKNESS (4) HTN (hypertension) Assessment/Plan: -controlled -on Cardizem -umberto or arb once renal fxn is stable Code(s): I10 - ESSENTIAL (PRIMARY) HYPERTENSION Qualifiers: Hypertension type: essential hypertension Qualified Code(s): I10 - Essential (primary) hypertension (5) Hydronephrosis Assessment/Plan: -repeat U/S renal -BUN/Cr trending up again -maintain dutton catheter Code(s): N13.30 - UNSPECIFIED HYDRONEPHROSIS Qualifiers: Hydronephrosis type: unspecified Qualified Code(s): N13.30 - Unspecified hydronephrosis (6) Pelvic mass Assessment/Plan: -Pelvic mass biopsy showed prostate adenocarcinoma -PSA elevated to 203 Code(s): R19.00 - INTRA-ABD AND PELVIC SWELLING, MASS AND LUMP, UNSP SITE (7) Confusion Assessment/Plan: -Repeat CT head negative -Seen by Neurology -avoid medications causing sedation/confusion -Okay to give Ativan 0.5 mg IVP 30 mins prior to bone scan, if ineffective, may give another 0.5 mg. Code(s): R41.0 - DISORIENTATION, UNSPECIFIED Assessment/Plan see problem list spoke to daughter
[2017-06-05] MEDS ORDERED: LORazepam 2 MG/ML SDV VIAL IVPUSH ONE (16:25)
--- NOTE | 2017-06-05 19:41 | PN ---
Progress Note (short form) - Note Progress Note: 76 yom presented with b/l hydronephrosis and azotemia and had cysto with b/l stent placement on rectal exam prostate appeared smooth benign and nt, a supraprostatic mass was poalpated outside bladder causing ureteral encasement had ct guided bx of mass. surprisingly revealed adenocarc stained pos for psa imp psa > 200 adv prostate ca will need met w/u ct a/p and bone scan will also need total androg ablation lhrh analog and bicalutimadie will also need rad onc consult for possible ert will f/u in office when med cleared
[2017-06-05] MEDS: ARTIFICIAL TEARS (POLYVINYL ALCOHOL 1.4%) OPTH DROPS OU PRN (21:32)
[2017-06-06] MEDS: ALBUTEROL SO4 2.5/IPRATROPIUM 0.5 INH SOL 3 ML VIAL.NEB. NEB SCH ×5 (00:17→23:15)
[2017-06-06] MEDS: NAPH,MB-DB/K PH,MBDB POWDER PACKET PO SCH ×2 (05:55→13:45)
--- NOTE | 2017-06-06 10:00 | PN ---
Progress Note (short form) - Note Progress Note: Neurology History of Present Illness The patient is a 76 yo M poor historian with a past medical history significant for chronic AF on anticoagulation, emphysema with long history of cigarette smoking, diverticulitis, hypercholesterolemia, type 2 DM and HTN who presents with confusion. As per the patients daughter, she went to check on him after she didnt hear from him. The patient states he lives alone. He endorses a decreased appetite. He was admitted and had extensive course with acute renal failure and I was consulted for altered mental status. He had not been aware of location, date, and at bedside he was confused. CT head repeated and did not show acute changes. MRI brain completed and showed moderate atrophy but no acute changes. He has Afib on Coumadin. Ammonia level checked and was normal. Over the weekend, transferred to ICU, required intubation and with acute respiratory failure but has improved since then downgraded to floor status and remains awake and conversive but not fully aware. Completed CT head again and did not show acute changes. For bone scan today and spoke to primary who inquired about Ativan for procedure in order patient safety and I was in agreement. Can try 0.5mg, another 0.5mg at time of procuedure if needed Active Medications Albuterol/Ipratropium (Duoneb -) 1 amp NEB QIDR [facility] Last Admin: 06/06/17 06:01 Dose: 1 amp Apixaban (Eliquis -) 5 mg PO BID [facility] Last Admin: 06/05/17 21:32 Dose: 5 mg Artificial Tears (Artificial Tears) 1 drop OU BID PRN PRN Reason: DRY EYES Last Admin: 06/05/17 21:32 Dose: 1 drop Diltiazem HCl (Cardizem Cd -) 240 mg PO DAILY [facility] Last Admin: 06/05/17 10:11 Dose: 240 mg Nicotine (Nicoderm Patch -) 14 mg TD DAILY [facility] Last Admin: 06/05/17 10:11 Dose: 14 mg Pantoprazole Sodium (Protonix -) 40 mg PO DAILY [facility] Last Admin: 06/05/17 10:11 Dose: 40 mg Polyethylene Glycol (Miralax (For Daily Use) -) 17 gm PO DAILY [facility] Last Admin: 06/05/17 10:11 Dose: 17 gm Potassium Phos/Sodium Phos (Phos-Nak Packet -) 1 packet PO TID [facility] Stop: 06/06/17 14:01 Last Admin: 06/06/17 05:55 Dose: 1 packet *Physical Exam Vital Signs Temperature 98.2 F 06/06/17 06:00 Pulse Rate 96 H 06/06/17 08:11 Respiratory Rate 18 06/06/17 08:11 Blood Pressure 140/71 06/06/17 08:11 O2 Sat by Pulse Oximetry (%) 95 06/06/17 08:45 Well developed, well nourished. alert to person and place but not time. Afebrile. No acute distress. HEENT: Normocephalic, atraumatic. PERRLA, EOMI. No conjunctival pallor. Sclera are non- icteric. Moist mucous membranes. Oropharynx is clear. NECK: Supple. Full ROM. No JVD. Carotid pulses 2+ and symmetric, without bruits. No thyromegaly. No lymphadenopathy. CARDIOVASCULAR: Regular rate and rhythm. No murmurs, rubs, or gallops. Distal pulses are 2+ and symmetric. PULMONARY: No evidence of respiratory distress. Bilateral crackles. No wheezing, rales or rhonchi. ABDOMINAL: Soft. Non-tender. Non-distended. No rebound or guarding. No organomegaly. Normoactive bowel sounds. Old surgical scars on abdomen. MUSCULOSKELETAL Normal range of motion at all joints. No bony deformities or tenderness. No CVA tenderness. EXTREMITIES: No cyanosis. No clubbing. No edema. No calf tenderness. SKIN: Warm and dry. Normal capillary refill. No rashes. No jaundice. NEUROLOGICAL: Following commands, moving all extremities and responds to questions, CN intact , sensory nml, gait deferred CBCD WBC 11.5 K/mm3 (4.0-10.0) H 06/05/17 06:30 RBC 3.54 M/mm3 (4.00-5.60) L 06/05/17 06:30 Hgb 11.1 GM/dL (11.7-16.9) L 06/05/17 06:30 Hct 32.3 % (35.4-49) L 06/05/17 06:30 MCV 91.2 fl (80-96) 06/05/17 06:30 MCHC 34.5 g/dl (32.0-35.9) 06/05/17 06:30 RDW 13.6 % (11.9-15.9) 06/05/17 06:30 Plt Count 331 K/MM3 (134-434) 06/05/17 06:30 MPV 8.0 fl (7.5-11.1) 06/05/17 06:30 CMP Sodium 141 mmol/L (136-145) 06/05/17 06:30 Potassium 4.4 mmol/L (3.5-5.1) 06/05/17 06:30 Chloride 106 mmol/L (98-107) 06/05/17 06:30 Carbon Dioxide 24 mmol/L (21-32) 06/05/17 06:30 Anion Gap 11 (8-16) 06/05/17 06:30 BUN 29 mg/dL (7-18) H D 06/05/17 06:30 Creatinine 3.0 mg/dL (0.7-1.3) H D 06/05/17 06:30 Creat Clearance w eGFR 20.56 (>60) 06/05/17 06:30 Calcium 9.0 mg/dL (8.5-10.1) 06/05/17 06:30 Total Bilirubin 1.4 mg/dL (0.2-1.0) H D 06/05/17 06:30 AST 18 U/L (15-37) 06/05/17 06:30 ALT 28 U/L (12-78) 06/05/17 06:30 Alkaline Phosphatase 77 U/L (45-117) 06/05/17 06:30 Total Protein 5.8 g/dl (6.4-8.2) L 06/05/17 06:30 Albumin 2.8 g/dl (3.4-5.0) L 06/05/17 06:30 - RADIOLOGY CT head and MRI brain reviewed Medical Decision Making 76 yo M poor historian with a past medical history significant for chronic AF on anticoagulation, emphysema with long history of cigarette smoking, diverticulitis, hypercholesterolemia, type 2 DM and HTN who presents with confusion. As per the patients daughter, she went to check on him after she didnt hear from him. The patient states he lives alone. He endorses a decreased appetite. He was admitted and had extensive course with acute renal failure and now with altered mental status. He has not been aware of location, date, and at bedside he was confused. CT head repeated and did not show acute changes. I reviewed MRI brain and showed moderate atrophy but no acute changes. He has Afib on Coumadin. Ammonia level checked and was normal. Over the weekend , transferred to ICU, required intubation and with acute respiratory failure. Remains awake and conversive but not fully at baseline mental status but improved. Currently extubated, monitor respiratory status and oxygen satuation. 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 Continue hydration and adequate PO intake. Continue medical optimization. For bone scan today. Ativan, low dose ok for procedure, may have some post procedure confusion, should subside if it occurs at all, will monitor.
[2017-06-06 10:55] LABS: BASOPHIL 0.5 % (0-2.0); EOSINOPHIL 5.1 % (0-4.5); MCH 31.5 pg (25.7-33.7); MEAN CELL VOLUME 92.7 fl (80-96); MEAN PLT VOLUME 7.6 fl (7.5-11.1); NEUTROPHILS 72.7 % (42.8-82.8); PLATELET COUNT 321 K/MM3 (134-434); RDW 14.2 % (11.9-15.9); WHITE BLOOD COUNT 9.7 K/mm3 (4.0-10.0)
[2017-06-06] MEDS: POLYETHYLENE GLYCOL 3350 119 GM BTL PO SCH (11:04)
[2017-06-06] MEDS ORDERED: PT OWN MED DRAWER 7, Y5N ONE (11:09)
[2017-06-06] MEDS: NICOTINE 14 MG/24 HOURS TOPICAL PATCH TD SCH (11:13)
[2017-06-06] MEDS: PANTOPRAZOLE 40 MG TABLET (FP) PO SCH (11:14)
[2017-06-06] MEDS: APIXABAN 5 MG TABLET PO SCH ×2 (11:14→21:22)
[2017-06-06 11:27] LABS: ALBUMIN 2.4 g/dl (3.4-5.0); ANION GAP 8 (8-16); BILIRUBIN,TOTAL 0.8 mg/dL (0.2-1.0); CALCIUM 8.9 mg/dL (8.5-10.1); CO2 27 mmol/L (21-32); CREATININE 2.6 mg/dL (0.7-1.3); GLUCOSE,RANDOM 186 mg/dL (74-106); SGOT/AST 17 U/L (15-37); SGPT/ALT 27 U/L (12-78); TOT PROT 5.5 g/dl (6.4-8.2)
[2017-06-06 11:28] LABS: ALK PHOS 69 U/L (45-117)
--- NOTE | 2017-06-06 11:36 | PN ---
Progress Note, Physician Chief Complaint: AMS, Acute renal failure, Prostate adenocarcinoma History of Present Illness: in bed at this time, sleeping, arousable. Going for bone scan today. - Current Medication List Current Medications: Active Medications Albuterol/Ipratropium (Duoneb -) 1 amp NEB QIDR [facility] Last Admin: 06/06/17 06:01 Dose: 1 amp Apixaban (Eliquis -) 5 mg PO BID [facility] Last Admin: 06/06/17 11:14 Dose: 5 mg Artificial Tears (Artificial Tears) 1 drop OU BID PRN PRN Reason: DRY EYES Last Admin: 06/05/17 21:32 Dose: 1 drop Diltiazem HCl (Cardizem Cd -) 240 mg PO DAILY [facility] Last Admin: 06/06/17 11:14 Dose: 240 mg Lorazepam (Ativan Injection -) 0.5 mg IVPUSH ONCE ONE Stop: 06/06/17 12:01 Nicotine (Nicoderm Patch -) 14 mg TD DAILY [facility] Last Admin: 06/06/17 11:13 Dose: 14 mg Pantoprazole Sodium (Protonix -) 40 mg PO DAILY [facility] Last Admin: 06/06/17 11:14 Dose: 40 mg Polyethylene Glycol (Miralax (For Daily Use) -) 17 gm PO DAILY [facility] Last Admin: 06/06/17 11:04 Dose: Not Given Potassium Phos/Sodium Phos (Phos-Nak Packet -) 1 packet PO TID [facility] Stop: 06/06/17 14:01 Last Admin: 06/06/17 05:55 Dose: 1 packet - Objective Vital Signs: Vital Signs Temperature 98.2 F 06/06/17 06:00 Pulse Rate 96 H 06/06/17 08:11 Respiratory Rate 18 06/06/17 08:11 Blood Pressure 140/71 06/06/17 08:11 O2 Sat by Pulse Oximetry (%) 95 06/06/17 08:45 Constitutional: Yes: Well Nourished, No Distress, Calm Cardiovascular: Yes: Regular Rate and Rhythm Respiratory: Yes: Regular Gastrointestinal: Yes: Normal Bowel Sounds Extremities: Yes: WNL Edema: No Peripheral Pulses WNL: Yes Neurological: Yes: Alert, Confusion Psychiatric: Yes: Alert Labs: CBC, BMP 06/06/17 10:40 INR, PTT INR 1.08 (0.82-1.09) 05/30/17 06:40 Problem List - Problems (1) Acute renal failure Assessment/Plan: -BUN/Cr trending up -gentle IV fluids -s/p BL renal stents -Urine in dutton clear -seen by renal -repeat U/S renal pending -monitor BUN/Cr Code(s): N17.9 - ACUTE KIDNEY FAILURE, UNSPECIFIED Qualifiers: Acute renal failure type: unspecified Qualified Code(s): N17.9 - Acute kidney failure, unspecified (2) Atrial fibrillation with RVR Assessment/Plan: -chronic -started on Eliquis BID -on Cardizem po, Metoprolol not indicated at this time,rate is controlled Code(s): I48.91 - UNSPECIFIED ATRIAL FIBRILLATION (3) Generalized weakness Code(s): R53.1 - WEAKNESS (4) HTN (hypertension) Assessment/Plan: -controlled -on Cardizem -umberto or arb once renal fxn is stable Code(s): I10 - ESSENTIAL (PRIMARY) HYPERTENSION Qualifiers: Hypertension type: essential hypertension Qualified Code(s): I10 - Essential (primary) hypertension (5) Hydronephrosis Code(s): N13.30 - UNSPECIFIED HYDRONEPHROSIS Qualifiers: Hydronephrosis type: unspecified Qualified Code(s): N13.30 - Unspecified hydronephrosis (6) Confusion Assessment/Plan: -Repeat CT head negative -Seen by Neurology -avoid medications causing sedation/confusion -Okay to give Ativan 0.5 mg IVP 30 mins prior to bone scan, if ineffective, may give another 0.5 mg. Code(s): R41.0 - DISORIENTATION, UNSPECIFIED (7) Adenocarcinoma of prostate Assessment/Plan: -Pelvic mass biopsy showed prostate adenocarcinoma with extrinsic ureteral compression and hydronephrosis post intervention -PSA elevated to 203 -rad onc recommends daily external beam radiation therapy to the mass to relieve obstruction -Bone scan pending Code(s): C61 - MALIGNANT NEOPLASM OF PROSTATE Assessment/Plan see problem list
--- NOTE | 2017-06-06 12:10 | PN ---
Progress Note, Physician History of Present Illness: Remains in rate-controlled afib, denies chest pain or dyspnea. Sensorium waxes and wanes. CT-guided biopsy confirms prostate adenocarcinoma. - Current Medication List Current Medications: Active Medications Albuterol/Ipratropium (Duoneb -) 1 amp NEB QIDR [facility] Last Admin: 06/06/17 06:01 Dose: 1 amp Apixaban (Eliquis -) 5 mg PO BID [facility] Last Admin: 06/06/17 11:14 Dose: 5 mg Artificial Tears (Artificial Tears) 1 drop OU BID PRN PRN Reason: DRY EYES Last Admin: 06/05/17 21:32 Dose: 1 drop Diltiazem HCl (Cardizem Cd -) 240 mg PO DAILY [facility] Last Admin: 06/06/17 11:14 Dose: 240 mg Nicotine (Nicoderm Patch -) 14 mg TD DAILY [facility] Last Admin: 06/06/17 11:13 Dose: 14 mg Pantoprazole Sodium (Protonix -) 40 mg PO DAILY [facility] Last Admin: 06/06/17 11:14 Dose: 40 mg Polyethylene Glycol (Miralax (For Daily Use) -) 17 gm PO DAILY [facility] Last Admin: 06/06/17 11:04 Dose: Not Given Potassium Phos/Sodium Phos (Phos-Nak Packet -) 1 packet PO TID [facility] Stop: 06/06/17 14:01 Last Admin: 06/06/17 05:55 Dose: 1 packet - Objective Vital Signs: Vital Signs Temperature 98.2 F 06/06/17 06:00 Pulse Rate 96 H 06/06/17 08:11 Respiratory Rate 18 06/06/17 08:11 Blood Pressure 140/71 06/06/17 08:11 O2 Sat by Pulse Oximetry (%) 95 06/06/17 08:45 Constitutional: Yes: No Distress, Calm Neck: Yes: Supple Cardiovascular: Yes: Regular Rate and Rhythm Respiratory: Yes: Regular, Diminished Gastrointestinal: Yes: Normal Bowel Sounds, Soft Edema: No Labs: CBC, BMP 06/06/17 10:40 06/06/17 10:40 INR, PTT INR 1.08 (0.82-1.09) 05/30/17 06:40 Problem List - Problems (1) Acute renal failure Code(s): N17.9 - ACUTE KIDNEY FAILURE, UNSPECIFIED Qualifiers: Acute renal failure type: unspecified Qualified Code(s): N17.9 - Acute kidney failure, unspecified (2) Atrial fibrillation with RVR Code(s): I48.91 - UNSPECIFIED ATRIAL FIBRILLATION (3) Diastolic CHF Code(s): I50.30 - UNSPECIFIED DIASTOLIC (CONGESTIVE) HEART FAILURE Qualifiers : Congestive heart failure chronicity: chronic Qualified Code(s): I50.32 - Chronic diastolic (congestive) heart failure (4) HTN (hypertension) Code(s): I10 - ESSENTIAL (PRIMARY) HYPERTENSION Qualifiers: Hypertension type: essential hypertension Qualified Code(s): I10 - Essential (primary) hypertension (5) Hydronephrosis Code(s): N13.30 - UNSPECIFIED HYDRONEPHROSIS Qualifiers: Hydronephrosis type: unspecified Qualified Code(s): N13.30 - Unspecified hydronephrosis (6) Pelvic mass Code(s): R19.00 - INTRA-ABD AND PELVIC SWELLING, MASS AND LUMP, UNSP SITE (7) Uremia Code(s): N19 - UNSPECIFIED KIDNEY FAILURE (8) Prostate cancer Code(s): C61 - MALIGNANT NEOPLASM OF PROSTATE Assessment/Plan 1. Acute renal failure (post obstructive) requiring temporary HD 2. Digoxin toxicity - resolved 3. Hyperkalemia and supratherapeutic INR - now resolved - INR normalized 4. Altered mental status/toxic metabolic encephalopathy - due to uremia - now improved 5. Permanent atrial fibrillation with variable ventricular response 6. History of hypertension 7. COPD/emphysema with history of exacerbation 8. Type 2 diabetes mellitus 9. Post respiratory failure extubated yesterday 10. Prostate adenocarcinoma with extrinsic ureteral compression and hydronephrosis post intervention - post bilateral stents, bladder biopsy PLAN: 1. IVF, monitor renal function and electrolytes. Management as per Renal service. 2. Continue Cardizem CD 240 qd and titrate as tolerated 3. Currently on Eliquis 5 mg BID 4. Consider ACEI or ARB once renal function stabilizes 5. F/u bone scan, noted elevated PSA 203, rad onc recommends daily external beam radiation therapy to the mass for palliation of obstruction, recommends hormonal ablation
--- NOTE | 2017-06-06 12:49 | PN ---
Progress Note (short form) - Note Progress Note: Renal Follow up for SILAS Pt seen and examined at the bedside awake and alert less confused as per nursing staff being taken down for bone scan renal US not performed good urine output via dutton Vital Signs Temperature 98.2 F 06/06/17 06:00 Pulse Rate 96 H 06/06/17 08:11 Respiratory Rate 18 06/06/17 08:11 Blood Pressure 140/71 06/06/17 08:11 O2 Sat by Pulse Oximetry (%) 95 06/06/17 08:45 Intake & Output 06/03/17 06/04/17 06/05/17 06/06/17 23:59 23:59 23:59 23:59 Intake Total 1999 2450 1000 100 Output Total 900 1300 1200 900 Balance 1100 1150 -200 -800 Weight 265 lb 6.4 oz 262 lb 4 oz 250 lb 1 oz 255 lb 9 oz Gen: awake and alert CVS: RRR Lungs: CTA, anterior exam Abd: soft NT/ND Ext: No edema, clubbing or cyanosis : dutton in place CBC, BMP 06/06/17 10:40 06/06/17 10:40 Laboratory Tests 06/06/17 10:40 Calcium 8.9 Albumin 2.4 L Current Medications Albuterol/Ipratropium (Duoneb -) 1 amp NEB QIDR [facility] Last Admin: 06/06/17 06:01 Dose: 1 amp Apixaban (Eliquis -) 5 mg PO BID [facility] Last Admin: 06/06/17 11:14 Dose: 5 mg Artificial Tears (Artificial Tears) 1 drop OU BID PRN PRN Reason: DRY EYES Last Admin: 06/05/17 21:32 Dose: 1 drop Diltiazem HCl (Cardizem Cd -) 240 mg PO DAILY [facility] Last Admin: 06/06/17 11:14 Dose: 240 mg Nicotine (Nicoderm Patch -) 14 mg TD DAILY [facility] Last Admin: 06/06/17 11:13 Dose: 14 mg Pantoprazole Sodium (Protonix -) 40 mg PO DAILY [facility] Last Admin: 06/06/17 11:14 Dose: 40 mg Polyethylene Glycol (Miralax (For Daily Use) -) 17 gm PO DAILY [facility] Last Admin: 06/06/17 11:04 Dose: Not Given Potassium Phos/Sodium Phos (Phos-Nak Packet -) 1 packet PO TID [facility] Stop: 06/06/17 14:01 Last Admin: 06/06/17 05:55 Dose: 1 packet A/P 76 year old gentleman with PMhx of Afib on Coumadin, COPD, Hyperlipidemia, DM Type 2, Hypertension who presented with AMS and found to have BUN/Cr of 109/11 and K of 7.8. #Acute Renal failure with hyperkalemia in setting of bladder inlet obstruction Cr odin to 3 yesterday, slight improvement today good urine output will need US of Kidney to r/o recurrence of partial obstruction Start isotonic IVF : NS at 83cc per hour Trend bun/Cr avoid IV contrast, nsaids #Prostate Ca Bone scan today Rad Onc and oncology consult Thank you Donta Carmona Problem List - Problems (1) Acute renal failure Code(s): N17.9 - ACUTE KIDNEY FAILURE, UNSPECIFIED Qualifiers: Acute renal failure type: unspecified Qualified Code(s): N17.9 - Acute kidney failure, unspecified (2) Atrial fibrillation with RVR Code(s): I48.91 - UNSPECIFIED ATRIAL FIBRILLATION (3) HTN (hypertension) Code(s): I10 - ESSENTIAL (PRIMARY) HYPERTENSION Qualifiers: Hypertension type: essential hypertension Qualified Code(s): I10 - Essential (primary) hypertension (4) Hyperkalemia Code(s): E87.5 - HYPERKALEMIA (5) Uremia Code(s): N19 - UNSPECIFIED KIDNEY FAILURE (6) Metabolic acidosis Code(s): E87.2 - ACIDOSIS (7) Hyperphosphatemia Code(s): E83.39 - OTHER DISORDERS OF PHOSPHORUS METABOLISM (8) Hyponatremia Code(s): E87.1 - HYPO-OSMOLALITY AND HYPONATREMIA
[2017-06-06] MEDS: SODIUM CHLORIDE 1,000 ML IV SCH (13:32)
[2017-06-06] MEDS: ARTIFICIAL TEARS (POLYVINYL ALCOHOL 1.4%) OPTH DROPS OU PRN (21:22)
[2017-06-07 06:06] LABS: SERUM IRON 23 ug/dL (38-169); TOTAL IRON BINDING CAPACITY 159 ug/dL (250-450); UIBC 136 ug/dL (111-343)
[2017-06-07] MEDS: ALBUTEROL SO4 2.5/IPRATROPIUM 0.5 INH SOL 3 ML VIAL.NEB. NEB SCH ×3 (06:50→18:55)
[2017-06-07] MEDS ORDERED: PT OWN MED DRAWER 7, Y5N ONE ×2 (09:43→21:17)
[2017-06-07] MEDS: NICOTINE 14 MG/24 HOURS TOPICAL PATCH TD SCH (09:46)
[2017-06-07] MEDS: APIXABAN 5 MG TABLET PO SCH ×2 (09:47→21:18)
[2017-06-07] MEDS: PANTOPRAZOLE 40 MG TABLET (FP) PO SCH (09:47)
--- NOTE | 2017-06-07 09:52 | PN ---
Progress Note (short form) - Note Progress Note: Neurology History of Present Illness The patient is a 76 yo M poor historian with a past medical history significant for chronic AF on anticoagulation, emphysema with long history of cigarette smoking, diverticulitis, hypercholesterolemia, type 2 DM and HTN who presents with confusion. As per the patients daughter, she went to check on him after she didnt hear from him. The patient states he lives alone. He endorses a decreased appetite. He was admitted and had extensive course with acute renal failure and I was consulted for altered mental status. He had not been aware of location, date, and at bedside he was confused. CT head repeated and did not show acute changes. MRI brain completed and showed moderate atrophy but no acute changes. He has Afib on Coumadin. Ammonia level checked and was normal. Over the weekend, transferred to ICU, required intubation and with acute respiratory failure but has improved since then downgraded to floor status and remains awake and conversive but not fully aware. Completed CT head again and did not show acute changes. Completed bone scan, didn't need Ativan for it and was already somnolent. More awake today and getting renal ultrasound. Active Medications Albuterol/Ipratropium (Duoneb -) 1 amp NEB QIDR [facility] Last Admin: 06/07/17 06:50 Dose: 1 amp Apixaban (Eliquis -) 5 mg PO BID [facility] Last Admin: 06/07/17 09:47 Dose: 5 mg Artificial Tears (Artificial Tears) 1 drop OU BID PRN PRN Reason: DRY EYES Last Admin: 06/06/17 21:22 Dose: 1 drop Diltiazem HCl (Cardizem Cd -) 240 mg PO DAILY [facility] Last Admin: 06/07/17 09:47 Dose: 240 mg Sodium Chloride (Normal Saline -) 1,000 mls @ 83 mls/hr IV ASDIR [facility] Last Admin: 06/06/17 13:32 Dose: 83 mls/hr Nicotine (Nicoderm Patch -) 14 mg TD DAILY [facility] Last Admin: 06/07/17 09:46 Dose: 14 mg Pantoprazole Sodium (Protonix -) 40 mg PO DAILY [facility] Last Admin: 06/07/17 09:47 Dose: 40 mg Polyethylene Glycol (Miralax (For Daily Use) -) 17 gm PO DAILY [facility] Last Admin: 06/06/17 11:04 Dose: Not Given *Physical Exam Vital Signs Period Temp Pulse Resp BP Sys/Ching Pulse Ox Last 24 Hr 97.5 F-99.1 F 89-95 20-20 107-152/59-75 96 Well developed, well nourished. alert to person and place but not time. Afebrile. No acute distress. HEENT: Normocephalic, atraumatic. PERRLA, EOMI. No conjunctival pallor. Sclera are non- icteric. Moist mucous membranes. Oropharynx is clear. NECK: Supple. Full ROM. No JVD. Carotid pulses 2+ and symmetric, without bruits. No thyromegaly. No lymphadenopathy. CARDIOVASCULAR: Regular rate and rhythm. No murmurs, rubs, or gallops. Distal pulses are 2+ and symmetric. PULMONARY: No evidence of respiratory distress. Bilateral crackles. No wheezing, rales or rhonchi. ABDOMINAL: Soft. Non-tender. Non-distended. No rebound or guarding. No organomegaly. Normoactive bowel sounds. Old surgical scars on abdomen. MUSCULOSKELETAL Normal range of motion at all joints. No bony deformities or tenderness. No CVA tenderness. EXTREMITIES: No cyanosis. No clubbing. No edema. No calf tenderness. SKIN: Warm and dry. Normal capillary refill. No rashes. No jaundice. NEUROLOGICAL: Following commands, moving all extremities and responds to questions, CN intact , sensory nml, gait deferred CBCD WBC 9.7 K/mm3 (4.0-10.0) 06/06/17 10:40 RBC 3.46 M/mm3 (4.00-5.60) L 06/06/17 10:40 Hgb 10.9 GM/dL (11.7-16.9) L 06/06/17 10:40 Hct 32.1 % (35.4-49) L 06/06/17 10:40 MCV 92.7 fl (80-96) 06/06/17 10:40 MCHC 34.0 g/dl (32.0-35.9) 06/06/17 10:40 RDW 14.2 % (11.9-15.9) 06/06/17 10:40 Plt Count 321 K/MM3 (134-434) 06/06/17 10:40 MPV 7.6 fl (7.5-11.1) 06/06/17 10:40 CMP Sodium 142 mmol/L (136-145) 06/06/17 10:40 Potassium 3.9 mmol/L (3.5-5.1) 06/06/17 10:40 Chloride 107 mmol/L (98-107) 06/06/17 10:40 Carbon Dioxide 27 mmol/L (21-32) 06/06/17 10:40 Anion Gap 8 (8-16) 06/06/17 10:40 BUN 31 mg/dL (7-18) H 06/06/17 10:40 Creatinine 2.6 mg/dL (0.7-1.3) H 06/06/17 10:40 Creat Clearance w eGFR 24.25 (>60) 06/06/17 10:40 Calcium 8.9 mg/dL (8.5-10.1) 06/06/17 10:40 Total Bilirubin 0.8 mg/dL (0.2-1.0) D 06/06/17 10:40 AST 17 U/L (15-37) 06/06/17 10:40 ALT 27 U/L (12-78) 06/06/17 10:40 Alkaline Phosphatase 69 U/L (45-117) 06/06/17 10:40 Total Protein 5.5 g/dl (6.4-8.2) L 06/06/17 10:40 Albumin 2.4 g/dl (3.4-5.0) L 06/06/17 10:40 - RADIOLOGY CT head and MRI brain reviewed Medical Decision Making 76 yo M poor historian with a past medical history significant for chronic AF on anticoagulation, emphysema with long history of cigarette smoking, diverticulitis, hypercholesterolemia, type 2 DM and HTN who presents with confusion. As per the patients daughter, she went to check on him after she didnt hear from him. The patient states he lives alone. He endorses a decreased appetite. He was admitted and had extensive course with acute renal failure and now with altered mental status. He has not been aware of location, date, and at bedside he was confused. CT head repeated and did not show acute changes. I reviewed MRI brain and showed moderate atrophy but no acute changes. He has Afib on Coumadin. Ammonia level checked and was normal. Over the weekend , transferred to ICU, required intubation and with acute respiratory failure. Remains awake and conversive but not fully at baseline mental status but improved. Currently extubated, monitor respiratory status and oxygen satuation. Continue blood pressure control, continue monitoring renal function, follow up wireless consultant rec'd. Continue hydration and adequate PO intake. Continue medical optimization. Follow up bone scan results, did not require Ativan for procedure.
[2017-06-07] MEDS: POLYETHYLENE GLYCOL 3350 119 GM BTL PO SCH (09:59)
[2017-06-07 11:07] LABS: EOSINOPHIL 5.1 % (0-4.5); MCH 31.6 pg (25.7-33.7); MCHC 34.3 g/dl (32.0-35.9); MEAN CELL VOLUME 92.3 fl (80-96); MEAN PLT VOLUME 7.1 fl (7.5-11.1); NEUTROPHILS 73.6 % (42.8-82.8); PLATELET COUNT 397 K/MM3 (134-434); RDW 13.7 % (11.9-15.9); WHITE BLOOD COUNT 9.2 K/mm3 (4.0-10.0)
--- NOTE | 2017-06-07 12:33 | PN ---
Progress Note, Physician Chief Complaint: Not in distress Seen in ultrasound History of Present Illness: Patient was seen and examined. Awake. Chart was reviewed Denies chest pain, SOB or palpitations, but confused - Current Medication List Current Medications: Active Medications Albuterol/Ipratropium (Duoneb -) 1 amp NEB QIDR [facility] Last Admin: 06/07/17 11:54 Dose: 1 amp Apixaban (Eliquis -) 5 mg PO BID [facility] Last Admin: 06/07/17 09:47 Dose: 5 mg Artificial Tears (Artificial Tears) 1 drop OU BID PRN PRN Reason: DRY EYES Last Admin: 06/06/17 21:22 Dose: 1 drop Diltiazem HCl (Cardizem Cd -) 240 mg PO DAILY [facility] Last Admin: 06/07/17 09:47 Dose: 240 mg Sodium Chloride (Normal Saline -) 1,000 mls @ 83 mls/hr IV ASDIR [facility] Last Admin: 06/06/17 13:32 Dose: 83 mls/hr Nicotine (Nicoderm Patch -) 14 mg TD DAILY [facility] Last Admin: 06/07/17 09:46 Dose: 14 mg Pantoprazole Sodium (Protonix -) 40 mg PO DAILY [facility] Last Admin: 06/07/17 09:47 Dose: 40 mg Polyethylene Glycol (Miralax (For Daily Use) -) 17 gm PO DAILY [facility] Last Admin: 06/07/17 09:59 Dose: 17 gm - Objective Vital Signs: Vital Signs Temperature 98.1 F 06/07/17 10:00 Pulse Rate 93 H 06/07/17 10:00 Respiratory Rate 20 06/07/17 10:00 Blood Pressure 158/84 06/07/17 10:00 O2 Sat by Pulse Oximetry (%) 96 06/07/17 10:00 Neck: Yes: Supple Cardiovascular: Yes: Pulse Irregular, S1, S2 Respiratory: Yes: Diminished Gastrointestinal: Yes: Normal Bowel Sounds, Soft, Abdomen, Obese. No: Tenderness Edema: No Labs: CBC, BMP 06/07/17 10:52 INR, PTT INR 1.08 (0.82-1.09) 05/30/17 06:40 Problem List - Problems (1) Acute renal failure Code(s): N17.9 - ACUTE KIDNEY FAILURE, UNSPECIFIED Qualifiers: Acute renal failure type: unspecified Qualified Code(s): N17.9 - Acute kidney failure, unspecified (2) Atrial fibrillation with RVR Code(s): I48.91 - UNSPECIFIED ATRIAL FIBRILLATION (3) Confusion Code(s): R41.0 - DISORIENTATION, UNSPECIFIED (4) HTN (hypertension) Code(s): I10 - ESSENTIAL (PRIMARY) HYPERTENSION Qualifiers: Hypertension type: essential hypertension Qualified Code(s): I10 - Essential (primary) hypertension (5) Hyperkalemia Code(s): E87.5 - HYPERKALEMIA (6) Uremia Code(s): N19 - UNSPECIFIED KIDNEY FAILURE (7) Diabetes Code(s): E11.9 - TYPE 2 DIABETES MELLITUS WITHOUT COMPLICATIONS Qualifiers: Diabetes mellitus type: type 2 Diabetes mellitus complication status: without complication (8) Supratherapeutic INR Code(s): R79.1 - ABNORMAL COAGULATION PROFILE Assessment/Plan 1. Acute renal failure (post obstructive) requiring temporary HD 2. Digoxin toxicity - resolved 3. Hyperkalemia and supratherapeutic INR - now resolved - INR normalized 4. Altered mental status/toxic metabolic encephalopathy - due to uremia - now improved 5. Permanent atrial fibrillation with variable ventricular response 6. History of hypertension 7. COPD/emphysema with history of exacerbation 8. Type 2 diabetes mellitus 9. Post respiratory failure extubated yesterday 10. Pelvic mass with extrinsic ureteral compression and hydronephrosis post intervention - post bilateral stents, bladder biopsy PLAN: 1. Monitor renal function and electrolytes. Management as per Renal service. Renal ultrasound done 2. Continue Cardizem CD and titrate 3. Currently on Eliquis 5 mg BID 4. Consider ACEI or ARB once renal function stabilizes 5. Pathology to assess pelvic mass to follow Guarded Further plans are to follow Han Nowak MD
--- NOTE | 2017-06-07 12:34 | PN ---
Progress Note (short form) - Note Progress Note: Renal Follow up for SILAS Pt seen and examined at the bedside awake and alert nurse reports that the patient was very agitated overnight and this am good urine output on IVF Vital Signs Temperature 98.1 F 06/07/17 10:00 Pulse Rate 93 H 06/07/17 10:00 Respiratory Rate 20 06/07/17 10:00 Blood Pressure 158/84 06/07/17 10:00 O2 Sat by Pulse Oximetry (%) 96 06/07/17 10:00 Intake & Output 06/04/17 06/05/17 06/06/17 06/07/17 23:59 23:59 23:59 23:59 Intake Total 2450 1650 1450 1000 Output Total 1300 1200 2900 1700 Balance 1150 450 -1450 -700 Weight 262 lb 4 oz 250 lb 1 oz 255 lb 9 oz 234 lb 6 oz Gen: awake and alert CVS: RRR Lungs: CTA, anterior exam Abd: soft NT/ND Ext: No edema, clubbing or cyanosis : dutton in place CBC, BMP 06/07/17 10:52 Current Medications Albuterol/Ipratropium (Duoneb -) 1 amp NEB QIDR [facility] Last Admin: 06/07/17 11:54 Dose: 1 amp Apixaban (Eliquis -) 5 mg PO BID [facility] Last Admin: 06/07/17 09:47 Dose: 5 mg Artificial Tears (Artificial Tears) 1 drop OU BID PRN PRN Reason: DRY EYES Last Admin: 06/06/17 21:22 Dose: 1 drop Diltiazem HCl (Cardizem Cd -) 240 mg PO DAILY [facility] Last Admin: 06/07/17 09:47 Dose: 240 mg Sodium Chloride (Normal Saline -) 1,000 mls @ 83 mls/hr IV ASDIR [facility] Last Admin: 06/06/17 13:32 Dose: 83 mls/hr Nicotine (Nicoderm Patch -) 14 mg TD DAILY [facility] Last Admin: 06/07/17 09:46 Dose: 14 mg Pantoprazole Sodium (Protonix -) 40 mg PO DAILY [facility] Last Admin: 06/07/17 09:47 Dose: 40 mg Polyethylene Glycol (Miralax (For Daily Use) -) 17 gm PO DAILY [facility] Last Admin: 06/07/17 09:59 Dose: 17 gm A/P 76 year old gentleman with PMhx of Afib on Coumadin, COPD, Hyperlipidemia, DM Type 2, Hypertension who presented with AMS and found to have BUN/Cr of 109/11 and K of 7.8. #Acute Renal failure secondary to bladder ilet obstruction Todays labs pending however pt with significant improvement in urine output yesterday Renal US shows persistent hydornephrosois on the right side but unclear if this a functional hydronephrosis or a chronic finding continue isotonic IVF pending todays labs Trend BUN/Cr and electrolytes #Prostate Ca bone scan did not show metastatic disease Oncology follow up Thank you Donta Carmona Problem List - Problems (1) Acute renal failure Code(s): N17.9 - ACUTE KIDNEY FAILURE, UNSPECIFIED Qualifiers: Acute renal failure type: unspecified Qualified Code(s): N17.9 - Acute kidney failure, unspecified (2) Atrial fibrillation with RVR Code(s): I48.91 - UNSPECIFIED ATRIAL FIBRILLATION (3) HTN (hypertension) Code(s): I10 - ESSENTIAL (PRIMARY) HYPERTENSION Qualifiers: Hypertension type: essential hypertension Qualified Code(s): I10 - Essential (primary) hypertension (4) Hyperkalemia Code(s): E87.5 - HYPERKALEMIA (5) Uremia Code(s): N19 - UNSPECIFIED KIDNEY FAILURE (6) Metabolic acidosis Code(s): E87.2 - ACIDOSIS (7) Hyperphosphatemia Code(s): E83.39 - OTHER DISORDERS OF PHOSPHORUS METABOLISM (8) Hyponatremia Code(s): E87.1 - HYPO-OSMOLALITY AND HYPONATREMIA
[2017-06-07 12:44] LABS: ALBUMIN 2.7 g/dl (3.4-5.0); ALK PHOS 76 U/L (45-117); ANION GAP 7 (8-16); BILIRUBIN,TOTAL 0.9 mg/dL (0.2-1.0); CALCIUM 9.1 mg/dL (8.5-10.1); CO2 28 mmol/L (21-32); CREATININE 1.7 mg/dL (0.7-1.3); GLUCOSE,RANDOM 108 mg/dL (74-106); MAGNESIUM 1.9 mg/dL (1.8-2.4); PHOSPHOROUS 2.7 mg/dL (2.5-4.9); SGOT/AST 19 U/L (15-37); SGPT/ALT 33 U/L (12-78); URIC ACID 7.8 mg/dL (2.6-7.2)
--- NOTE | 2017-06-07 13:01 | PN ---
Progress Note (short form) - Note Progress Note: Radiation Oncology Remains confused ?at baseline. Reviewed path, adenocarcinoma from prostate, [place] 8 per discussion with pathologist. PSA = 203. Bone scan is neg for distant mets. Impression: Locally advanced prostate cancer associated with obstructive uropathy. Agree with androgen deprivation therapy. RT to prostate mass recommended for palliation. Cont medical, renal, urology f/u. D/C plan to STR.
--- NOTE | 2017-06-07 15:10 | PN ---
Progress Note, Physician Chief Complaint: AMS, Acute renal failure, Prostate adenocarcinoma History of Present Illness: in bed at this time, alert, less confused. knows location, year, month and president - Current Medication List Current Medications: Active Medications Albuterol/Ipratropium (Duoneb -) 1 amp NEB QIDR [facility] Last Admin: 06/07/17 11:54 Dose: 1 amp Apixaban (Eliquis -) 5 mg PO BID [facility] Last Admin: 06/07/17 09:47 Dose: 5 mg Artificial Tears (Artificial Tears) 1 drop OU BID PRN PRN Reason: DRY EYES Last Admin: 06/06/17 21:22 Dose: 1 drop Diltiazem HCl (Cardizem Cd -) 240 mg PO DAILY [facility] Last Admin: 06/07/17 09:47 Dose: 240 mg Sodium Chloride (Normal Saline -) 1,000 mls @ 83 mls/hr IV ASDIR [facility] Last Admin: 06/06/17 13:32 Dose: 83 mls/hr Nicotine (Nicoderm Patch -) 14 mg TD DAILY [facility] Last Admin: 06/07/17 09:46 Dose: 14 mg Pantoprazole Sodium (Protonix -) 40 mg PO DAILY [facility] Last Admin: 06/07/17 09:47 Dose: 40 mg Polyethylene Glycol (Miralax (For Daily Use) -) 17 gm PO DAILY [facility] Last Admin: 06/07/17 09:59 Dose: 17 gm - Objective Vital Signs: Vital Signs Temperature 98.1 F 06/07/17 13:34 Pulse Rate 94 H 06/07/17 13:34 Respiratory Rate 20 06/07/17 10:00 Blood Pressure 154/88 06/07/17 13:34 O2 Sat by Pulse Oximetry (%) 96 06/07/17 10:00 Constitutional: Yes: Well Nourished, No Distress, Calm Cardiovascular: Yes: Pulse Irregular Respiratory: Yes: Regular Gastrointestinal: Yes: Normal Bowel Sounds Genitourinary: Yes: [place] Present Musculoskeletal: Yes: WNL Extremities: Yes: WNL Edema: No Peripheral Pulses WNL: Yes Neurological: Yes: Alert Psychiatric: Yes: Alert Labs: CBC, BMP 06/07/17 10:52 06/07/17 10:52 INR, PTT INR 1.08 (0.82-1.09) 05/30/17 06:40 Problem List - Problems (1) Acute renal failure Assessment/Plan: -BUN/Cr trending down -IVF -s/p BL renal stents -Urine in dutton clear -seen by renal -repeat U/S renal shows mild right hydronephrosis -monitor BUN/Cr Code(s): N17.9 - ACUTE KIDNEY FAILURE, UNSPECIFIED Qualifiers: Acute renal failure type: unspecified Qualified Code(s): N17.9 - Acute kidney failure, unspecified (2) Atrial fibrillation with RVR Assessment/Plan: -chronic -started on Eliquis BID -on Cardizem po, Metoprolol not indicated at this time,rate is controlled Code(s): I48.91 - UNSPECIFIED ATRIAL FIBRILLATION (3) Generalized weakness Code(s): R53.1 - WEAKNESS (4) HTN (hypertension) Assessment/Plan: -controlled -on Cardizem -umberto or arb once renal fxn is stable Code(s): I10 - ESSENTIAL (PRIMARY) HYPERTENSION Qualifiers: Hypertension type: essential hypertension Qualified Code(s): I10 - Essential (primary) hypertension (5) Hydronephrosis Assessment/Plan: -repeat U/S renal shows mild right hydronephrosis -BUN/Cr trending up again -maintain dutton catheter Code(s): N13.30 - UNSPECIFIED HYDRONEPHROSIS Qualifiers: Hydronephrosis type: unspecified Qualified Code(s): N13.30 - Unspecified hydronephrosis (6) Confusion Assessment/Plan: -seen by neurology -less confused today Code(s): R41.0 - DISORIENTATION, UNSPECIFIED (7) Adenocarcinoma of prostate Assessment/Plan: -Pelvic mass biopsy showed prostate adenocarcinoma with extrinsic ureteral compression and hydronephrosis post intervention -PSA elevated to 203 -rad onc recommends androgen deprivation and daily external beam radiation therapy to the mass to relieve obstruction -Bone scan negative for mets Code(s): C61 - MALIGNANT NEOPLASM OF PROSTATE Assessment/Plan see problem list plan STR once cleared by Renal. Spoke to daughter at length, She will work with discharge planners at [facility] to get pt to [facility]. They have association with [facility] to provide radiation treatment.
--- NOTE | 2017-06-07 17:31 | PN ---
Progress Note (short form) - Note Progress Note: Patient seen and examined Confused Last Vital Signs Temp Pulse Resp BP Pulse Ox 98.1 F 94 H 20 154/88 96 06/07/17 13:34 06/07/17 13:34 06/07/17 10:00 06/07/17 13:34 06/07/17 10:00 Cor: RSR, No murmurs, No gallops Lungs: Clear to P&A Abd: Soft, Normal bowel sounds, No organomegaly Ext:No significant edema Skin: No rashes, Integument intact Abnormal Lab Results 06/06/17 06/07/17 06/07/17 12:11 10:52 10:52 RBC 3.82 L Hct 35.2 L MPV 7.1 L Eosinophils % 5.1 H Anion Gap 7 L BUN 25 H Creatinine 1.7 H D Random Glucose 108 H D Uric Acid 7.8 H D Iron 23 L TIBC 159 L Iron Saturation 14 L Total Protein 6.0 L Albumin 2.7 L Home Medication List Medication Instructions Recorded Confirmed Type Atorvastatin Calcium DAILY 05/20/17 History Digoxin DAILY 05/20/17 History Diltiazem HCl [Cartia Xt] DAILY 05/20/17 History Gemfibrozil DAILY 05/20/17 History Metoprolol Tartrate BID 05/20/17 History Shelby-3 Acid Ethyl Esters [Lovaza] BID 05/20/17 History Ranitidine [Zantac -] BID 05/20/17 History Warfarin Sodium [Coumadin] DAILY 05/20/17 History Active Medications Generic Name Dose Route Start Last Admin Trade Name Freq PRN Reason Stop Dose Admin Albuterol/Ipratropium 1 amp 06/05/17 12:00 06/07/17 11:54 Duoneb - NEB 1 amp QIDR [facility] Administration Apixaban 5 mg 06/05/17 11:30 06/07/17 09:47 Eliquis - PO 5 mg BID [facility] Administration Artificial Tears 1 drop 06/05/17 07:41 06/06/17 21:22 Artificial Tears OU 1 drop BID PRN Administration DRY EYES Bicalutamide 50 mg 06/08/17 10:00 Casodex - PO DAILY [facility] Diltiazem HCl 240 mg 06/05/17 10:00 06/07/17 09:47 Cardizem Cd - PO 240 mg DAILY [facility] Administration Sodium Chloride 1,000 mls @ 83 mls/hr 06/06/17 13:00 06/06/17 13:32 Normal Saline - IV 83 mls/hr ASDIR [facility] Administration Nicotine 14 mg 06/05/17 10:00 06/07/17 09:46 Nicoderm Patch - TD 14 mg DAILY [facility] Administration Pantoprazole Sodium 40 mg 06/05/17 10:00 06/07/17 09:47 Protonix - PO 40 mg DAILY [facility] Administration Polyethylene Glycol 17 gm 06/05/17 10:00 06/07/17 09:59 Miralax (For Daily Use) - PO 17 gm DAILY [facility] Administration A/P 76 year old gentleman with PMhx of Afib on Coumadin, COPD, Hyperlipidemia, DM Type 2, Hypertension who presented with AMS and found to have BUN/Cr of 109/11 and K of 7.8. He presented with alterd mental status/hypoxia/ ??? aspiration/acute renal failure. Was in icu/s/p intubation for sepsis. w/u revealed obstructive uropathy/bladder/prostate mass Bladder biopsy--chronic inflammation CT guided bx of mass c/w prostate adeno ca Patient denies personal/family h/o cancer based on CT c/a/p and biopsy ---patient with locally advanced prostate cancer Bone scan neg. discussed with his daughter in detail she is concerned about his mental status. Discussed his diagnosis. Started Casodex--antiandrogen To monitor LFTs monthly on casodex To consider lupron after 2 weeks of casodex Patients daughter wants him transferred to a facility close to her house in [facility]
[2017-06-08] MEDS: ALBUTEROL SO4 2.5/IPRATROPIUM 0.5 INH SOL 3 ML VIAL.NEB. NEB SCH ×4 (00:20→17:19)
[2017-06-08 07:36] LABS: MCH 31.6 pg (25.7-33.7); MCHC 34.5 g/dl (32.0-35.9); MEAN CELL VOLUME 91.5 fl (80-96); MEAN PLT VOLUME 7.5 fl (7.5-11.1); PLATELET COUNT 376 K/MM3 (134-434); RDW 13.4 % (11.9-15.9); WHITE BLOOD COUNT 10.8 K/mm3 (4.0-10.0)
[2017-06-08 08:03] LABS: ANION GAP 8 (8-16); CALCIUM 9.2 mg/dL (8.5-10.1); CO2 28 mmol/L (21-32); CREATININE 1.9 mg/dL (0.7-1.3); GLUCOSE,RANDOM 103 mg/dL (74-106); MAGNESIUM 1.9 mg/dL (1.8-2.4); PHOSPHOROUS 2.9 mg/dL (2.5-4.9)
--- NOTE | 2017-06-08 09:02 | PN ---
Progress Note (short form) - Note Progress Note: Chief Complaint: Events noted, notes reviewed. Denies any chest pain or dyspnea , remains confused and disoriented History of Present Illness: Seen and examined. Events noted, notes reviewed. Denies any chest pain or dyspnea, remains confused and disoriented Echocardiography revealed normal LV size and systolic function with no significant valvular pathology - Current Medication List Current Medications Albuterol/Ipratropium (Duoneb -) 1 amp NEB QIDR [facility] Last Admin: 06/08/17 07:14 Dose: 1 amp Apixaban (Eliquis -) 5 mg PO BID [facility] Last Admin: 06/07/17 21:18 Dose: 5 mg Artificial Tears (Artificial Tears) 1 drop OU BID PRN PRN Reason: DRY EYES Last Admin: 06/06/17 21:22 Dose: 1 drop Bicalutamide (Casodex -) 50 mg PO DAILY [facility] Diltiazem HCl (Cardizem Cd -) 240 mg PO DAILY [facility] Last Admin: 06/07/17 09:47 Dose: 240 mg Sodium Chloride (Normal Saline -) 1,000 mls @ 83 mls/hr IV ASDIR [facility] Last Admin: 06/06/17 13:32 Dose: 83 mls/hr Nicotine (Nicoderm Patch -) 14 mg TD DAILY [facility] Last Admin: 06/07/17 09:46 Dose: 14 mg Pantoprazole Sodium (Protonix -) 40 mg PO DAILY [facility] Last Admin: 06/07/17 09:47 Dose: 40 mg Polyethylene Glycol (Miralax (For Daily Use) -) 17 gm PO DAILY [facility] Last Admin: 06/07/17 09:59 Dose: 17 gm - Objective Vital Signs: Last Vital Signs Temp Pulse Resp BP Pulse Ox 97.7 F 109 H 20 157/82 95 06/08/17 06:00 06/08/17 06:00 06/08/17 06:00 06/08/17 06:00 06/07/17 22:00 Intake & Output 06/05/17 06/06/17 06/07/17 06/08/17 23:59 23:59 23:59 23:59 Intake Total 1650 1450 2230 900 Output Total 1200 2900 2500 1000 Balance 450 -1450 -270 -100 Weight 250 lb 1 oz 255 lb 9 oz 234 lb 6 oz 233 lb Neck: Supple Negative JVD No Bruit Cardiovascular: S1 S2 Irregularly Irregular No Murmurs, Clicks or Gallops Respiratory: Diminished Breath sounds at the Bases Gastrointestinal: Soft Benign Normal Bowel Sounds Ext: No Edema Labs: CBC, BMP 06/08/17 06:00 06/08/17 06:00 Assessment/Plan ASSESSMENT: 1. Acute renal failure requiring temporary HD, related to obstructive uropathy, post intervention, prostate mass/carcinoma 2. CAD angina pectoris, stable 3. Diastolic LV dysfunction with class 0-I NYHA classification LV congestive heart failure, compensated/euvolemic 4. Permanent atrial fibrillation on chronic A/C with Eliquis 5. HTN 6. DM 7. Altered mental status/toxic metabolic encephalopathy, persistent 8. COPD/emphysema 9. Post respiratory failure 10. Post supra-therapeutic INR, off of Coumadin therapy 11. Post Hyperkalemia PLAN: 1. Continue Cardizem CD 2. Continue Eliquis 3. Monitor renal function closely 4. Plan to D/C to sub-acute care Caro Ordoñez MD
[2017-06-08 09:38] LABS: PLATELET COMMENT2 NO CLOTTING DETECTED; PLATELET ESTIMATE ADEQUATE (NORMAL); TOTAL CELLS COUNTED 100
[2017-06-08 09:39] LABS: METAMYELOCYTE 1 % (0-2)
[2017-06-08] MEDS ORDERED: PT OWN MED DRAWER 7, Y5N ONE ×2 (09:52→21:20)
[2017-06-08] MEDS: NICOTINE 14 MG/24 HOURS TOPICAL PATCH TD SCH (10:12)
[2017-06-08] MEDS: BICALUTAMIDE 50 MG TABLET (FP) PO SCH (10:13)
[2017-06-08] MEDS: APIXABAN 5 MG TABLET PO SCH ×2 (10:13→21:52)
[2017-06-08] MEDS: PANTOPRAZOLE 40 MG TABLET (FP) PO SCH (10:13)
[2017-06-08] MEDS: POLYETHYLENE GLYCOL 3350 119 GM BTL PO SCH (10:19)
--- NOTE | 2017-06-08 11:20 | PN ---
Progress Note, Physician Chief Complaint: asleep sedated restraints applied for patient safety this is my first encounter with this patient - Current Medication List Current Medications: Active Medications Albuterol/Ipratropium (Duoneb -) 1 amp NEB QIDR [facility] Last Admin: 06/08/17 07:14 Dose: 1 amp Apixaban (Eliquis -) 5 mg PO BID [facility] Last Admin: 06/08/17 10:13 Dose: 5 mg Artificial Tears (Artificial Tears) 1 drop OU BID PRN PRN Reason: DRY EYES Last Admin: 06/06/17 21:22 Dose: 1 drop Bicalutamide (Casodex -) 50 mg PO DAILY [facility] Last Admin: 06/08/17 10:13 Dose: 50 mg Diltiazem HCl (Cardizem Cd -) 240 mg PO DAILY [facility] Last Admin: 06/08/17 10:13 Dose: 240 mg Sodium Chloride (Normal Saline -) 1,000 mls @ 83 mls/hr IV ASDIR [facility] Last Admin: 06/06/17 13:32 Dose: 83 mls/hr Nicotine (Nicoderm Patch -) 14 mg TD DAILY [facility] Last Admin: 06/08/17 10:12 Dose: 14 mg Pantoprazole Sodium (Protonix -) 40 mg PO DAILY [facility] Last Admin: 06/08/17 10:13 Dose: 40 mg Polyethylene Glycol (Miralax (For Daily Use) -) 17 gm PO DAILY [facility] Last Admin: 06/08/17 10:19 Dose: 17 gm - Objective Vital Signs: Vital Signs Temperature 97.7 F 06/08/17 06:00 Pulse Rate 109 H 06/08/17 06:00 Respiratory Rate 20 06/08/17 06:00 Blood Pressure 157/82 06/08/17 06:00 O2 Sat by Pulse Oximetry (%) 95 06/07/17 22:00 Constitutional: Yes: Mild Distress Eyes: Yes: WNL, Other Neck: Yes: WNL Cardiovascular: Yes: WNL Respiratory: Yes: WNL Gastrointestinal: Yes: WNL Genitourinary: Yes: Dutton Present Musculoskeletal: Yes: Muscle Weakness Extremities: Yes: WNL Edema: No Peripheral Pulses WNL: Yes Wound/Incision: Yes: Clean/Dry Neurological: Yes: Confusion, Pre-Existing Deficit ...Motor Strength: LLE, RLE Psychiatric: Yes: Agitated Labs: CBC, BMP 06/08/17 06:00 06/08/17 06:00 INR, PTT INR 1.08 (0.82-1.09) 05/30/17 06:40 Problem List - Problems (1) Acute renal failure Code(s): N17.9 - ACUTE KIDNEY FAILURE, UNSPECIFIED Qualifiers: Acute renal failure type: unspecified Qualified Code(s): N17.9 - Acute kidney failure, unspecified (2) Acute respiratory failure Code(s): J96.00 - ACUTE RESPIRATORY FAILURE, UNSP W HYPOXIA OR HYPERCAPNIA (3) Adenocarcinoma of prostate Code(s): C61 - MALIGNANT NEOPLASM OF PROSTATE (4) Asbestos-induced pleural plaque Code(s): J92.0 - PLEURAL PLAQUE WITH PRESENCE OF ASBESTOS (5) Atrial fibrillation with RVR Code(s): I48.91 - UNSPECIFIED ATRIAL FIBRILLATION (6) Confusion Code(s): R41.0 - DISORIENTATION, UNSPECIFIED (7) Hyperlipidemia associated with type 2 diabetes mellitus Code(s): E11.69 - TYPE 2 DIABETES MELLITUS WITH OTHER SPECIFIED COMPLICATION E78.5 - HYPERLIPIDEMIA, UNSPECIFIED Assessment/Plan restraints renewed dutton intact iv abx per id nebs monitor labs
--- NOTE | 2017-06-08 11:27 | PN ---
Progress Note (short form) - Note Progress Note: Renal Follow up for SILAS Pt seen and examined at the bedside awake and alert less confused today, less agigated Vital Signs Temperature 97.7 F 06/08/17 06:00 Pulse Rate 109 H 06/08/17 06:00 Respiratory Rate 20 06/08/17 06:00 Blood Pressure 157/82 06/08/17 06:00 O2 Sat by Pulse Oximetry (%) 95 06/07/17 22:00 Intake & Output 06/05/17 06/06/17 06/07/17 06/08/17 23:59 23:59 23:59 23:59 Intake Total 1650 1450 2230 1250 Output Total 1200 2900 2500 1600 Balance 450 -1450 -270 -350 Weight 250 lb 1 oz 255 lb 9 oz 234 lb 6 oz 233 lb Gen: awake and alert CVS: RRR Lungs: CTA, anterior exam Abd: soft NT/ND Ext: No edema, clubbing or cyanosis : dutton in place CBC, BMP 06/08/17 06:00 06/08/17 06:00 Current Medications Albuterol/Ipratropium (Duoneb -) 1 amp NEB QIDR [facility] Last Admin: 06/08/17 07:14 Dose: 1 amp Apixaban (Eliquis -) 5 mg PO BID [facility] Last Admin: 06/08/17 10:13 Dose: 5 mg Artificial Tears (Artificial Tears) 1 drop OU BID PRN PRN Reason: DRY EYES Last Admin: 06/06/17 21:22 Dose: 1 drop Bicalutamide (Casodex -) 50 mg PO DAILY [facility] Last Admin: 06/08/17 10:13 Dose: 50 mg Diltiazem HCl (Cardizem Cd -) 240 mg PO DAILY [facility] Last Admin: 06/08/17 10:13 Dose: 240 mg Sodium Chloride (Normal Saline -) 1,000 mls @ 83 mls/hr IV ASDIR [facility] Last Admin: 06/06/17 13:32 Dose: 83 mls/hr Nicotine (Nicoderm Patch -) 14 mg TD DAILY [facility] Last Admin: 06/08/17 10:12 Dose: 14 mg Pantoprazole Sodium (Protonix -) 40 mg PO DAILY [facility] Last Admin: 06/08/17 10:13 Dose: 40 mg Polyethylene Glycol (Miralax (For Daily Use) -) 17 gm PO DAILY [facility] Last Admin: 06/08/17 10:19 Dose: 17 gm A/P 76 year old gentleman with PMhx of Afib on Coumadin, COPD, Hyperlipidemia, DM Type 2, Hypertension who presented with AMS and found to have BUN/Cr of 109/11 and K of 7.8. #Acute Renal failure secondary to bladder ilet obstruction Cr improved but remains higher then its lowest point in the hosptial good urine output if renal function does not improve further would consider Lasix renal scan to access if Right sided hydronephrosis is functional continue IVF for now #Prostate Ca Oncology follow up Thank you Donta Carmona Problem List - Problems (1) Acute renal failure Code(s): N17.9 - ACUTE KIDNEY FAILURE, UNSPECIFIED Qualifiers: Acute renal failure type: unspecified Qualified Code(s): N17.9 - Acute kidney failure, unspecified (2) Atrial fibrillation with RVR Code(s): I48.91 - UNSPECIFIED ATRIAL FIBRILLATION (3) HTN (hypertension) Code(s): I10 - ESSENTIAL (PRIMARY) HYPERTENSION Qualifiers: Hypertension type: essential hypertension Qualified Code(s): I10 - Essential (primary) hypertension (4) Hyperkalemia Code(s): E87.5 - HYPERKALEMIA (5) Uremia Code(s): N19 - UNSPECIFIED KIDNEY FAILURE (6) Metabolic acidosis Code(s): E87.2 - ACIDOSIS (7) Hyperphosphatemia Code(s): E83.39 - OTHER DISORDERS OF PHOSPHORUS METABOLISM (8) Hyponatremia Code(s): E87.1 - HYPO-OSMOLALITY AND HYPONATREMIA
[2017-06-08] MEDS: SODIUM CHLORIDE 1,000 ML IV SCH (14:31)
[2017-06-09] MEDS: ALBUTEROL SO4 2.5/IPRATROPIUM 0.5 INH SOL 3 ML VIAL.NEB. NEB SCH ×5 (00:20→23:57)
[2017-06-09 08:35] LABS: ANION GAP 8 (8-16); CALCIUM 8.7 mg/dL (8.5-10.1); CO2 27 mmol/L (21-32); CREATININE 1.5 mg/dL (0.7-1.3); GLUCOSE,RANDOM 88 mg/dL (74-106); MAGNESIUM 1.8 mg/dL (1.8-2.4); PHOSPHOROUS 2.9 mg/dL (2.5-4.9)
--- NOTE | 2017-06-09 09:06 | PN ---
Progress Note (short form) - Note Progress Note: Chief Complaint: Events noted, notes reviewed. Denies any chest pain or dyspnea , remains confused and disoriented History of Present Illness: Seen and examined. Events noted, notes reviewed. Denies any chest pain or dyspnea, remains confused and disoriented Echocardiography revealed normal LV size and systolic function with no significant valvular pathology - Current Medication List Current Medications Albuterol/Ipratropium (Duoneb -) 1 amp NEB QIDR [facility] Last Admin: 06/09/17 07:25 Dose: 1 amp Apixaban (Eliquis -) 5 mg PO BID [facility] Last Admin: 06/08/17 21:52 Dose: 5 mg Artificial Tears (Artificial Tears) 1 drop OU BID PRN PRN Reason: DRY EYES Last Admin: 06/06/17 21:22 Dose: 1 drop Bicalutamide (Casodex -) 50 mg PO DAILY [facility] Last Admin: 06/08/17 10:13 Dose: 50 mg Diltiazem HCl (Cardizem Cd -) 240 mg PO DAILY [facility] Last Admin: 06/08/17 10:13 Dose: 240 mg Sodium Chloride (Normal Saline -) 1,000 mls @ 83 mls/hr IV ASDIR [facility] Last Admin: 06/08/17 14:31 Dose: 83 mls/hr Nicotine (Nicoderm Patch -) 14 mg TD DAILY [facility] Last Admin: 06/08/17 10:12 Dose: 14 mg Pantoprazole Sodium (Protonix -) 40 mg PO DAILY [facility] Last Admin: 06/08/17 10:13 Dose: 40 mg Polyethylene Glycol (Miralax (For Daily Use) -) 17 gm PO DAILY [facility] Last Admin: 06/08/17 10:19 Dose: 17 gm - Objective Vital Signs: Last Vital Signs Temp Pulse Resp BP Pulse Ox 98.4 F 93 H 20 159/77 95 06/09/17 05:52 06/09/17 05:52 06/09/17 05:52 06/09/17 05:52 06/08/17 22:00 Intake & Output 06/06/17 06/07/17 06/08/17 06/09/17 23:59 23:59 23:59 23:59 Intake Total 1450 2230 1700 Output Total 2900 2500 3500 950 Balance -1450 -270 -1800 -950 Weight 255 lb 9 oz 234 lb 6 oz 233 lb 231 lb 5 oz Neck: Supple Negative JVD No Bruit Cardiovascular: S1 S2 Irregularly Irregular No Murmurs, Clicks or Gallops Respiratory: Diminished Breath sounds at the Bases Gastrointestinal: Soft Benign Normal Bowel Sounds Ext: No Edema Labs: CBC, BMP 06/08/17 06:00 06/09/17 06:00 Assessment/Plan ASSESSMENT: 1. Acute renal failure requiring temporary HD, related to obstructive uropathy, post intervention, prostate mass/carcinoma 2. CAD angina pectoris, stable 3. Diastolic LV dysfunction with class 0-I NYHA classification LV congestive heart failure, compensated/euvolemic 4. Permanent atrial fibrillation on chronic A/C with Eliquis 5. HTN 6. DM 7. Altered mental status/toxic metabolic encephalopathy, persistent 8. COPD/emphysema 9. Post respiratory failure 10. Post supra-therapeutic INR, off of Coumadin therapy 11. Post Hyperkalemia PLAN: 1. Continue Cardizem CD 2. Continue Eliquis 3. Monitor renal function closely 4. PT and plan to D/C to sub-acute care Caro Ordoñez MD
[2017-06-09] MEDS ORDERED: PT OWN MED DRAWER 7, Y5N ONE (09:29)
[2017-06-09] MEDS: APIXABAN 5 MG TABLET PO SCH ×2 (09:31→21:12)
[2017-06-09] MEDS: NICOTINE 14 MG/24 HOURS TOPICAL PATCH TD SCH (09:31)
[2017-06-09] MEDS: BICALUTAMIDE 50 MG TABLET (FP) PO SCH (09:31)
[2017-06-09] MEDS: PANTOPRAZOLE 40 MG TABLET (FP) PO SCH (09:31)
[2017-06-09] MEDS: POLYETHYLENE GLYCOL 3350 119 GM BTL PO SCH (10:03)
--- NOTE | 2017-06-09 10:43 | PN ---
Progress Note, Physician Chief Complaint: AWAKE DUY REAPPLIED FEELING BETTER - Current Medication List Current Medications: Active Medications Albuterol/Ipratropium (Duoneb -) 1 amp NEB QIDR [facility] Last Admin: 06/09/17 07:25 Dose: 1 amp Apixaban (Eliquis -) 5 mg PO BID [facility] Last Admin: 06/09/17 09:31 Dose: 5 mg Artificial Tears (Artificial Tears) 1 drop OU BID PRN PRN Reason: DRY EYES Last Admin: 06/06/17 21:22 Dose: 1 drop Bicalutamide (Casodex -) 50 mg PO DAILY [facility] Last Admin: 06/09/17 09:31 Dose: 50 mg Diltiazem HCl (Cardizem Cd -) 240 mg PO DAILY [facility] Last Admin: 06/09/17 09:31 Dose: 240 mg Sodium Chloride (Normal Saline -) 1,000 mls @ 83 mls/hr IV ASDIR [facility] Last Admin: 06/08/17 14:31 Dose: 83 mls/hr Nicotine (Nicoderm Patch -) 14 mg TD DAILY [facility] Last Admin: 06/09/17 09:31 Dose: 14 mg Pantoprazole Sodium (Protonix -) 40 mg PO DAILY [facility] Last Admin: 06/09/17 09:31 Dose: 40 mg Polyethylene Glycol (Miralax (For Daily Use) -) 17 gm PO DAILY [facility] Last Admin: 06/09/17 10:03 Dose: 17 gm - Objective Vital Signs: Vital Signs Temperature 98.4 F 06/09/17 05:52 Pulse Rate 93 H 06/09/17 05:52 Respiratory Rate 20 06/09/17 05:52 Blood Pressure 159/77 06/09/17 05:52 O2 Sat by Pulse Oximetry (%) 95 06/08/17 22:00 Constitutional: Yes: Mild Distress Eyes: Yes: WNL HENT: Yes: WNL Neck: Yes: WNL Cardiovascular: Yes: WNL Respiratory: Yes: WNL Genitourinary: Yes: Allred Present, Incontinence Musculoskeletal: Yes: Muscle Weakness Extremities: Yes: WNL Edema: Yes Edema: LLE: Trace, RLE: Trace Peripheral Pulses WNL: Yes Integumentary: Yes: Rash, Other Wound/Incision: Yes: Dressing Dry and Intact, Other Neurological: Yes: Pre-Existing Deficit, Weakness ...Motor Strength: LLE, RLE Psychiatric: Yes: Agitated Labs: CBC, BMP 06/08/17 06:00 06/09/17 06:00 INR, PTT INR 1.08 (0.82-1.09) 05/30/17 06:40 Problem List - Problems (1) Acute renal failure Code(s): N17.9 - ACUTE KIDNEY FAILURE, UNSPECIFIED Qualifiers: Acute renal failure type: unspecified Qualified Code(s): N17.9 - Acute kidney failure, unspecified (2) Acute respiratory failure Code(s): J96.00 - ACUTE RESPIRATORY FAILURE, UNSP W HYPOXIA OR HYPERCAPNIA (3) Adenocarcinoma of prostate Code(s): C61 - MALIGNANT NEOPLASM OF PROSTATE (4) Asbestos-induced pleural plaque Code(s): J92.0 - PLEURAL PLAQUE WITH PRESENCE OF ASBESTOS (5) Atrial fibrillation with RVR Code(s): I48.91 - UNSPECIFIED ATRIAL FIBRILLATION (6) Confusion Code(s): R41.0 - DISORIENTATION, UNSPECIFIED (7) Hyperlipidemia associated with type 2 diabetes mellitus Code(s): E11.69 - TYPE 2 DIABETES MELLITUS WITH OTHER SPECIFIED COMPLICATION E78.5 - HYPERLIPIDEMIA, UNSPECIFIED Assessment/Plan REAPPLY DUY RASCON PSYCHIATRY FERMIN ALLRED MAINTAINED LABS REVIEWED PT FERMIN CAO
--- NOTE | 2017-06-09 13:05 | PN ---
Progress Note (short form) - Note Progress Note: Neurology History of Present Illness The patient is a 76 yo M poor historian with a past medical history significant for chronic AF on anticoagulation, emphysema with long history of cigarette smoking, diverticulitis, hypercholesterolemia, type 2 DM and HTN who presents with confusion. As per the patients daughter, she went to check on him after she didnt hear from him. The patient states he lives alone. He endorses a decreased appetite. He was admitted and had extensive course with acute renal failure and I was consulted for altered mental status. He had not been aware of location, date, and at bedside he was confused. CT head repeated and did not show acute changes. MRI brain completed and showed moderate atrophy but no acute changes. He has Afib on Coumadin. Ammonia level checked and was normal. Over the weekend, transferred to ICU, required intubation and with acute respiratory failure but has improved since then downgraded to floor status and remains awake and conversive but not fully aware. Completed CT head again and did not show acute changes. Completed bone scan, didn't need Ativan for it and was already somnolent. Spoke to at bedside in detail regarding clinical couse as well as prognosis. He is medically improving but cognitively at times still confused. Given context of new enviorment and ongoing medical issues, we discussed his cognition can improve but will likely take time and medical issues to clear up. She is considering rehab placement near her, 400 [place] away , and inquiring about fpc vs short term care. Active Medications Albuterol/Ipratropium (Duoneb -) 1 amp NEB QIDR [facility] Last Admin: 06/09/17 11:15 Dose: 1 amp Apixaban (Eliquis -) 5 mg PO BID [facility] Last Admin: 06/09/17 09:31 Dose: 5 mg Artificial Tears (Artificial Tears) 1 drop OU BID PRN PRN Reason: DRY EYES Last Admin: 06/06/17 21:22 Dose: 1 drop Bicalutamide (Casodex -) 50 mg PO DAILY [facility] Last Admin: 06/09/17 09:31 Dose: 50 mg Diltiazem HCl (Cardizem Cd -) 240 mg PO DAILY [facility] Last Admin: 06/09/17 09:31 Dose: 240 mg Sodium Chloride (Normal Saline -) 1,000 mls @ 83 mls/hr IV ASDIR [facility] Last Admin: 06/08/17 14:31 Dose: 83 mls/hr Nicotine (Nicoderm Patch -) 14 mg TD DAILY [facility] Last Admin: 06/09/17 09:31 Dose: 14 mg Pantoprazole Sodium (Protonix -) 40 mg PO DAILY [facility] Last Admin: 06/09/17 09:31 Dose: 40 mg Polyethylene Glycol (Miralax (For Daily Use) -) 17 gm PO DAILY [facility] Last Admin: 06/09/17 10:03 Dose: 17 gm *Physical Exam Vital Signs Temperature 98.5 F 06/09/17 10:00 Pulse Rate 89 06/09/17 11:15 Respiratory Rate 20 06/09/17 10:00 Blood Pressure 162/82 06/09/17 10:00 O2 Sat by Pulse Oximetry (%) 97 06/09/17 11:15 Well developed, well nourished. alert to person and place but not time. Afebrile. No acute distress. HEENT: Normocephalic, atraumatic. PERRLA, EOMI. No conjunctival pallor. Sclera are non- icteric. Moist mucous membranes. Oropharynx is clear. NECK: Supple. Full ROM. No JVD. Carotid pulses 2+ and symmetric, without bruits. No thyromegaly. No lymphadenopathy. CARDIOVASCULAR: Regular rate and rhythm. No murmurs, rubs, or gallops. Distal pulses are 2+ and symmetric. PULMONARY: No evidence of respiratory distress. Bilateral crackles. No wheezing, rales or rhonchi. ABDOMINAL: Soft. Non-tender. Non-distended. No rebound or guarding. No organomegaly. Normoactive bowel sounds. Old surgical scars on abdomen. MUSCULOSKELETAL Normal range of motion at all joints. No bony deformities or tenderness. No CVA tenderness. EXTREMITIES: No cyanosis. No clubbing. No edema. No calf tenderness. SKIN: Warm and dry. Normal capillary refill. No rashes. No jaundice. NEUROLOGICAL: Following commands, moving all extremities and responds to questions, CN intact , sensory nml, gait deferred CBCD WBC 10.8 K/mm3 (4.0-10.0) H 06/08/17 06:00 RBC 3.69 M/mm3 (4.00-5.60) L 06/08/17 06:00 Hgb 11.6 GM/dL (11.7-16.9) L 06/08/17 06:00 Hct 33.8 % (35.4-49) L 06/08/17 06:00 MCV 91.5 fl (80-96) 06/08/17 06:00 MCHC 34.5 g/dl (32.0-35.9) 06/08/17 06:00 RDW 13.4 % (11.9-15.9) 06/08/17 06:00 Plt Count 376 K/MM3 (134-434) 06/08/17 06:00 MPV 7.5 fl (7.5-11.1) 06/08/17 06:00 CMP Sodium 142 mmol/L (136-145) 06/09/17 06:00 Potassium 4.2 mmol/L (3.5-5.1) 06/09/17 06:00 Chloride 107 mmol/L (98-107) 06/09/17 06:00 Carbon Dioxide 27 mmol/L (21-32) 06/09/17 06:00 Anion Gap 8 (8-16) 06/09/17 06:00 BUN 18 mg/dL (7-18) D 06/09/17 06:00 Creatinine 1.5 mg/dL (0.7-1.3) H D 06/09/17 06:00 Creat Clearance w eGFR 39.60 (>60) 06/07/17 10:52 Calcium 8.7 mg/dL (8.5-10.1) 06/09/17 06:00 Total Bilirubin 0.9 mg/dL (0.2-1.0) 06/07/17 10:52 AST 19 U/L (15-37) 06/07/17 10:52 ALT 33 U/L (12-78) D 06/07/17 10:52 Alkaline Phosphatase 76 U/L (45-117) 06/07/17 10:52 Total Protein 6.0 g/dl (6.4-8.2) L 06/07/17 10:52 Albumin 2.7 g/dl (3.4-5.0) L 06/07/17 10:52 - RADIOLOGY CT head and MRI brain reviewed Medical Decision Making 76 yo M poor historian with a past medical history significant for chronic AF on anticoagulation, emphysema with long history of cigarette smoking, diverticulitis, hypercholesterolemia, type 2 DM and HTN who presents with confusion. As per the patients daughter, she went to check on him after she didnt hear from him. The patient states he lives alone. He endorses a decreased appetite. He was admitted and had extensive course with acute renal failure and now with altered mental status. He has not been aware of location, date, and at bedside he was confused. CT head repeated and did not show acute changes. I reviewed MRI brain and showed moderate atrophy but no acute changes. He has Afib on Coumadin. Ammonia level checked and was normal. Remains awake and conversive but not fully at baseline mental status but improved. Currently extubated, monitor respiratory status and oxygen satuation. 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 Continue hydration and adequate PO intake. Continue medical optimization. Extensive conversation with today regarding ongoing care and prognosis.
[2017-06-09] MEDS: SODIUM CHLORIDE 1,000 ML IV SCH ×2 (13:34→21:11)
[2017-06-10] MEDS: ALBUTEROL SO4 2.5/IPRATROPIUM 0.5 INH SOL 3 ML VIAL.NEB. NEB SCH ×2 (06:18→10:50)
[2017-06-10 08:14] LABS: BASOPHIL 1.2 % (0-2.0); MCH 31.9 pg (25.7-33.7); MCHC 34.9 g/dl (32.0-35.9); MEAN CELL VOLUME 91.3 fl (80-96); MEAN PLT VOLUME 7.4 fl (7.5-11.1); NEUTROPHILS 71.7 % (42.8-82.8); PLATELET COUNT 359 K/MM3 (134-434); RDW 13.4 % (11.9-15.9); WHITE BLOOD COUNT 10.5 K/mm3 (4.0-10.0)
[2017-06-10 08:37] LABS: ALBUMIN 2.6 g/dl (3.4-5.0); ANION GAP 7 (8-16); CALCIUM 9.2 mg/dL (8.5-10.1); CO2 28 mmol/L (21-32); GLUCOSE,RANDOM 89 mg/dL (74-106); MAGNESIUM 1.9 mg/dL (1.8-2.4); PHOSPHOROUS 2.8 mg/dL (2.5-4.9); SGOT/AST 16 U/L (15-37); SGPT/ALT 26 U/L (12-78)
[2017-06-10 08:39] LABS: ALK PHOS 79 U/L (45-117); BILIRUBIN,TOTAL 0.6 mg/dL (0.2-1.0); CREATININE 1.6 mg/dL (0.7-1.3); TOT PROT 5.6 g/dl (6.4-8.2)
[2017-06-10] MEDS ORDERED: PT OWN MED DRAWER 7, Y5N ONE ×2 (09:30→21:29)
[2017-06-10] MEDS: PANTOPRAZOLE 40 MG TABLET (FP) PO SCH (09:31)
[2017-06-10] MEDS: NICOTINE 14 MG/24 HOURS TOPICAL PATCH TD SCH (09:31)
[2017-06-10] MEDS: POLYETHYLENE GLYCOL 3350 119 GM BTL PO SCH (09:32)
[2017-06-10] MEDS: APIXABAN 5 MG TABLET PO SCH ×2 (09:32→21:32)
[2017-06-10] MEDS: BICALUTAMIDE 50 MG TABLET (FP) PO SCH (09:32)
--- NOTE | 2017-06-10 10:18 | PN ---
Progress Note (short form) - Note Progress Note: Neurology History of Present Illness The patient is a 76 yo M poor historian with a past medical history significant for chronic AF on anticoagulation, emphysema with long history of cigarette smoking, diverticulitis, hypercholesterolemia, type 2 DM and HTN who presents with confusion. As per the patients daughter, she went to check on him after she didnt hear from him. The patient states he lives alone. He endorses a decreased appetite. He was admitted and had extensive course with acute renal failure and I was consulted for altered mental status. He had not been aware of location, date, and at bedside he was confused. CT head repeated and did not show acute changes. MRI brain completed and showed moderate atrophy but no acute changes. He has Afib on Coumadin. Ammonia level checked and was normal. Over the weekend, transferred to ICU, required intubation and with acute respiratory failure but has improved since then downgraded to floor status and remains awake and conversive but not fully aware. Completed CT head again and did not show acute changes. Completed bone scan, didn't need Ativan for it and was already somnolent. Spoke to at bedside in detail over weekend regarding clinical course as well as prognosis. He is medically improving but cognitively at times still confused. Given context of new environment and ongoing medical issues, we discussed his cognition can improve but will likely take time and medical issues to clear up. She is considering rehab placement near her, 400 miles away, and inquiring about custodial vs short term care. Today, he was in hallway and asking about paycheck which he does rather frequently. Active Medications Generic Name Dose Route Start Last Admin Trade Name Freq PRN Reason Stop Dose Admin Albuterol/Ipratropium 1 amp 06/05/17 12:00 06/10/17 06:18 Duoneb - NEB 1 amp QIDR [facility] Administration Apixaban 5 mg 06/05/17 11:30 06/10/17 09:32 Eliquis - PO 5 mg BID [facility] Administration Artificial Tears 1 drop 06/05/17 07:41 06/06/17 21:22 Artificial Tears OU 1 drop BID PRN Administration DRY EYES Bicalutamide 50 mg 06/08/17 10:00 06/10/17 09:32 Casodex - PO 50 mg DAILY [facility] Administration Diltiazem HCl 240 mg 06/05/17 10:00 06/10/17 09:31 Cardizem Cd - PO 240 mg DAILY [facility] Administration Sodium Chloride 1,000 mls @ 83 mls/hr 06/06/17 13:00 06/09/17 21:11 Normal Saline - IV 83 mls/hr ASDIR [facility] Administration Nicotine 14 mg 06/05/17 10:00 06/10/17 09:31 Nicoderm Patch - TD 14 mg DAILY [facility] Administration Pantoprazole Sodium 40 mg 06/05/17 10:00 06/10/17 09:31 Protonix - PO 40 mg DAILY [facility] Administration Polyethylene Glycol 17 gm 06/05/17 10:00 06/10/17 09:32 Miralax (For Daily Use) - PO 17 gm DAILY [facility] Administration *Physical Exam Vital Signs 06/10/17 06/10/17 06/10/17 06:52 07:55 09:00 Temperature 97.5 F L 98.0 F Pulse Rate 90 90 Respiratory 18 18 Rate Blood Pressure 153/75 160/90 O2 Sat by Pulse 97 Oximetry (%) Well developed, well nourished. alert to person and place but not time. Afebrile. No acute distress. HEENT: Normocephalic, atraumatic. PERRLA, EOMI. No conjunctival pallor. Sclera are non- icteric. Moist mucous membranes. Oropharynx is clear. NECK: Supple. Full ROM. No JVD. Carotid pulses 2+ and symmetric, without bruits. No thyromegaly. No lymphadenopathy. CARDIOVASCULAR: Regular rate and rhythm. No murmurs, rubs, or gallops. Distal pulses are 2+ and symmetric. PULMONARY: No evidence of respiratory distress. Bilateral crackles. No wheezing, rales or rhonchi. ABDOMINAL: Soft. Non-tender. Non-distended. No rebound or guarding. No organomegaly. Normoactive bowel sounds. Old surgical scars on abdomen. MUSCULOSKELETAL Normal range of motion at all joints. No bony deformities or tenderness. No CVA tenderness. EXTREMITIES: No cyanosis. No clubbing. No edema. No calf tenderness. SKIN: Warm and dry. Normal capillary refill. No rashes. No jaundice. NEUROLOGICAL: Following commands, moving all extremities and responds to questions, CN intact , sensory nml, gait deferred CBCD WBC 10.5 K/mm3 (4.0-10.0) H 06/10/17 07:00 RBC 3.69 M/mm3 (4.00-5.60) L 06/10/17 07:00 Hgb 11.8 GM/dL (11.7-16.9) 06/10/17 07:00 Hct 33.7 % (35.4-49) L 06/10/17 07:00 MCV 91.3 fl (80-96) 06/10/17 07:00 MCHC 34.9 g/dl (32.0-35.9) 06/10/17 07:00 RDW 13.4 % (11.9-15.9) 06/10/17 07:00 Plt Count 359 K/MM3 (134-434) 06/10/17 07:00 MPV 7.4 fl (7.5-11.1) L 06/10/17 07:00 CMP Sodium 142 mmol/L (136-145) 06/10/17 07:00 Potassium 4.3 mmol/L (3.5-5.1) 06/10/17 07:00 Chloride 107 mmol/L (98-107) 06/10/17 07:00 Carbon Dioxide 28 mmol/L (21-32) 06/10/17 07:00 Anion Gap 7 (8-16) L 06/10/17 07:00 BUN 15 mg/dL (7-18) 06/10/17 07:00 Creatinine 1.6 mg/dL (0.7-1.3) H 06/10/17 07:00 Creat Clearance w eGFR 42.46 (>60) 06/10/17 07:00 Calcium 9.2 mg/dL (8.5-10.1) 06/10/17 07:00 Total Bilirubin 0.6 mg/dL (0.2-1.0) D 06/10/17 07:00 AST 16 U/L (15-37) 06/10/17 07:00 ALT 26 U/L (12-78) D 06/10/17 07:00 Alkaline Phosphatase 79 U/L (45-117) 06/10/17 07:00 Total Protein 5.6 g/dl (6.4-8.2) L 06/10/17 07:00 Albumin 2.6 g/dl (3.4-5.0) L 06/10/17 07:00 - RADIOLOGY CT head and MRI brain reviewed Medical Decision Making 76 yo M poor historian with a past medical history significant for chronic AF on anticoagulation, emphysema with long history of cigarette smoking, diverticulitis, hypercholesterolemia, type 2 DM and HTN who presents with confusion. As per the patients daughter, she went to check on him after she didnt hear from him. The patient states he lives alone. He endorses a decreased appetite. He was admitted and had extensive course with acute renal failure and now with altered mental status. He has not been aware of location, date, and at bedside he was confused. CT head repeated and did not show acute changes. I reviewed MRI brain and showed moderate atrophy but no acute changes. He has Afib on Coumadin. Ammonia level checked and was normal. Remains awake and conversive but not fully at baseline mental status but improved. Currently extubated, monitor respiratory status and oxygen satuation. 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 Continue hydration and adequate PO intake. Continue medical optimization. Extensive conversation with over weekend regarding ongoing care and prognosis. Plan for discharge as able. Cognitively seems to be stable and hopefully continues to improve.
--- NOTE | 2017-06-10 11:09 | PN ---
Progress Note, Physician Chief Complaint: patient sitting in hallway in wheelchair not requiring jacquelyn vest as yet awake alert knows his name but is confused calm - Current Medication List Current Medications: Active Medications Albuterol/Ipratropium (Duoneb -) 1 amp NEB QIDR [facility] Last Admin: 06/10/17 06:18 Dose: 1 amp Apixaban (Eliquis -) 5 mg PO BID [facility] Last Admin: 06/10/17 09:32 Dose: 5 mg Artificial Tears (Artificial Tears) 1 drop OU BID PRN PRN Reason: DRY EYES Last Admin: 06/06/17 21:22 Dose: 1 drop Bicalutamide (Casodex -) 50 mg PO DAILY [facility] Last Admin: 06/10/17 09:32 Dose: 50 mg Diltiazem HCl (Cardizem Cd -) 240 mg PO DAILY [facility] Last Admin: 06/10/17 09:31 Dose: 240 mg Sodium Chloride (Normal Saline -) 1,000 mls @ 83 mls/hr IV ASDIR [facility] Last Admin: 06/09/17 21:11 Dose: 83 mls/hr Nicotine (Nicoderm Patch -) 14 mg TD DAILY [facility] Last Admin: 06/10/17 09:31 Dose: 14 mg Pantoprazole Sodium (Protonix -) 40 mg PO DAILY [facility] Last Admin: 06/10/17 09:31 Dose: 40 mg Polyethylene Glycol (Miralax (For Daily Use) -) 17 gm PO DAILY [facility] Last Admin: 06/10/17 09:32 Dose: 17 gm - Objective Vital Signs: Vital Signs Temperature 98.0 F 06/10/17 07:55 Pulse Rate 92 H 06/10/17 10:00 Respiratory Rate 18 06/10/17 10:00 Blood Pressure 137/80 06/10/17 10:00 O2 Sat by Pulse Oximetry (%) 97 06/10/17 09:00 Constitutional: Yes: Calm Neck: Yes: Trachea Midline Cardiovascular: Yes: Regular Rate and Rhythm, S1, S2 Respiratory: Yes: CTA Bilaterally Gastrointestinal: Yes: Normal Bowel Sounds, Soft Genitourinary: Yes: [place] Present Neurological: Yes: Alert Labs: CBC, BMP 06/10/17 07:00 06/10/17 07:00 INR, PTT INR 1.08 (0.82-1.09) 08/17/17 06:40 Problem List - Problems (1) Prostate cancer Assessment/Plan: bone scan shows no mets radiation consult noted - need sRT to prostate mass to relieve the obrstructive uropathy started on casodex- check LFT every 2 weeks Code(s): C61 - MALIGNANT NEOPLASM OF PROSTATE (2) Atrial fibrillation with RVR Assessment/Plan: cardizem and eliquis Code(s): I48.91 - UNSPECIFIED ATRIAL FIBRILLATION (3) Hydronephrosis Assessment/Plan: s/p bilateral JJ stents has dutton urology follow up noted Code(s): N13.30 - UNSPECIFIED HYDRONEPHROSIS Qualifiers: Hydronephrosis type: unspecified Qualified Code(s): N13.30 - Unspecified hydronephrosis (4) Diastolic CHF Assessment/Plan: hydralazine.stopped echo shows normal LV function Code(s): I50.30 - UNSPECIFIED DIASTOLIC (CONGESTIVE) HEART FAILURE Qualifiers : Congestive heart failure chronicity: chronic Qualified Code(s): I50.32 - Chronic diastolic (congestive) heart failure (5) Acute renal failure Assessment/Plan: S/p SILAS cr of 11 now cr is down to 1.6 requring temporary HD s/p JJ stents placment for hydronephrosis post obstructive uropathy sec to porstate mass- need RT for that Code(s): N17.9 - ACUTE KIDNEY FAILURE, UNSPECIFIED Qualifiers: Acute renal failure type: unspecified Qualified Code(s): N17.9 - Acute kidney failure, unspecified Assessment/Plan per notes family wants pt to be in facility closer to them in [facility] center will need STR and outpatient RT therapy
--- NOTE | 2017-06-10 12:13 | PN ---
Progress Note (short form) - Note Progress Note: Renal Follow up for SILAS Pt seen and examined in the hallway daughter is with him less confused this am good urine output dutton in place denies any CP, SOB, abd pain, N/V/D Vital Signs Temperature 98.0 F 06/10/17 07:55 Pulse Rate 92 H 06/10/17 10:00 Respiratory Rate 18 06/10/17 10:00 Blood Pressure 137/80 06/10/17 10:00 O2 Sat by Pulse Oximetry (%) 97 06/10/17 09:00 Intake & Output 06/07/17 06/08/17 06/09/17 06/10/17 23:59 23:59 23:59 23:59 Intake Total 2230 2258 292 4550 Output Total 2500 3500 2150 1000 Balance -270 -1800 -1650 0 Weight 234 lb 6 oz 233 lb 231 lb 5 oz 231 lb Gen: awake and alert CVS: RRR Lungs: CTA, anterior exam Abd: soft NT/ND Ext: No edema, clubbing or cyanosis : dutton in place CBC, BMP 06/10/17 07:00 06/10/17 07:00 Laboratory Tests 06/10/17 07:00 Calcium 9.2 Phosphorus 2.8 Magnesium 1.9 Albumin 2.6 L Current Medications Apixaban (Eliquis -) 5 mg PO BID [facility] Last Admin: 06/10/17 09:32 Dose: 5 mg Artificial Tears (Artificial Tears) 1 drop OU BID PRN PRN Reason: DRY EYES Last Admin: 06/06/17 21:22 Dose: 1 drop Bicalutamide (Casodex -) 50 mg PO DAILY [facility] Last Admin: 06/10/17 09:32 Dose: 50 mg Diltiazem HCl (Cardizem Cd -) 240 mg PO DAILY [facility] Last Admin: 06/10/17 09:31 Dose: 240 mg Sodium Chloride (Normal Saline -) 1,000 mls @ 83 mls/hr IV ASDIR [facility] Last Admin: 06/09/17 21:11 Dose: 83 mls/hr Nicotine (Nicoderm Patch -) 14 mg TD DAILY [facility] Last Admin: 06/10/17 09:31 Dose: 14 mg Pantoprazole Sodium (Protonix -) 40 mg PO DAILY [facility] Last Admin: 06/10/17 09:31 Dose: 40 mg Polyethylene Glycol (Miralax (For Daily Use) -) 17 gm PO DAILY [facility] Last Admin: 06/10/17 09:32 Dose: 17 gm A/P 76 year old gentleman with PMhx of Afib on Coumadin, COPD, Hyperlipidemia, DM Type 2, Hypertension who presented with AMS and found to have BUN/Cr of 109/11 and K of 7.8. #Acute Renal failure secondary to bladder ilet obstruction Renal function appears improved and stable [place] persists but renal function improved with IVF indicating that the hydro is likley not functional can d/c IVF and trend BUN/Cr oral fluid and solute intake as tolerated #Prostate Ca Oncology and urology follow up Thank you Donta Carmona Problem List - Problems (1) Acute renal failure Code(s): N17.9 - ACUTE KIDNEY FAILURE, UNSPECIFIED Qualifiers: Acute renal failure type: unspecified Qualified Code(s): N17.9 - Acute kidney failure, unspecified (2) Atrial fibrillation with RVR Code(s): I48.91 - UNSPECIFIED ATRIAL FIBRILLATION (3) HTN (hypertension) Code(s): I10 - ESSENTIAL (PRIMARY) HYPERTENSION Qualifiers: Hypertension type: essential hypertension Qualified Code(s): I10 - Essential (primary) hypertension (4) Hyperkalemia Code(s): E87.5 - HYPERKALEMIA (5) Uremia Code(s): N19 - UNSPECIFIED KIDNEY FAILURE (6) Metabolic acidosis Code(s): E87.2 - ACIDOSIS (7) Hyperphosphatemia Code(s): E83.39 - OTHER DISORDERS OF PHOSPHORUS METABOLISM (8) Hyponatremia Code(s): E87.1 - HYPO-OSMOLALITY AND HYPONATREMIA
--- NOTE | 2017-06-10 16:41 | PN ---
Progress Note, Physician Chief Complaint: Not in distress sitting in hallway History of Present Illness: Patient was seen and examined. Awake. Chart was reviewed Denies chest pain, SOB or palpitations, less confused Spoke with daughter who [place] [facility] to care for him once he is discharged - Current Medication List Current Medications: Active Medications Apixaban (Eliquis -) 5 mg PO BID [facility] Last Admin: 06/10/17 09:32 Dose: 5 mg Artificial Tears (Artificial Tears) 1 drop OU BID PRN PRN Reason: DRY EYES Last Admin: 06/06/17 21:22 Dose: 1 drop Bicalutamide (Casodex -) 50 mg PO DAILY [facility] Last Admin: 06/10/17 09:32 Dose: 50 mg Diltiazem HCl (Cardizem Cd -) 240 mg PO DAILY [facility] Last Admin: 06/10/17 09:31 Dose: 240 mg Nicotine (Nicoderm Patch -) 14 mg TD DAILY [facility] Last Admin: 06/10/17 09:31 Dose: 14 mg Pantoprazole Sodium (Protonix -) 40 mg PO DAILY [facility] Last Admin: 06/10/17 09:31 Dose: 40 mg Polyethylene Glycol (Miralax (For Daily Use) -) 17 gm PO DAILY [facility] Last Admin: 06/10/17 09:32 Dose: 17 gm - Objective Vital Signs: Vital Signs Temperature 98.4 F 06/10/17 16:00 Pulse Rate 86 06/10/17 16:00 Respiratory Rate 18 06/10/17 16:00 Blood Pressure 159/89 06/10/17 16:00 O2 Sat by Pulse Oximetry (%) 96 06/10/17 10:40 Neck: Yes: Supple Cardiovascular: Yes: Pulse Irregular, S1, S2 Respiratory: Yes: Diminished Gastrointestinal: Yes: Normal Bowel Sounds, Soft, Abdomen, Obese. No: Tenderness Edema: No Labs: CBC, BMP 06/10/17 07:00 06/10/17 07:00 Problem List - Problems (1) Acute renal failure Code(s): N17.9 - ACUTE KIDNEY FAILURE, UNSPECIFIED Qualifiers: Acute renal failure type: unspecified Qualified Code(s): N17.9 - Acute kidney failure, unspecified (2) Atrial fibrillation with RVR Code(s): I48.91 - UNSPECIFIED ATRIAL FIBRILLATION (3) Confusion Code(s): R41.0 - DISORIENTATION, UNSPECIFIED (4) HTN (hypertension) Code(s): I10 - ESSENTIAL (PRIMARY) HYPERTENSION Qualifiers: Hypertension type: essential hypertension Qualified Code(s): I10 - Essential (primary) hypertension (5) Hyperkalemia Code(s): E87.5 - HYPERKALEMIA (6) Uremia Code(s): N19 - UNSPECIFIED KIDNEY FAILURE (7) Diabetes Code(s): E11.9 - TYPE 2 DIABETES MELLITUS WITHOUT COMPLICATIONS Qualifiers: Diabetes mellitus type: type 2 Diabetes mellitus complication status: without complication (8) Supratherapeutic INR Code(s): R79.1 - ABNORMAL COAGULATION PROFILE Assessment/Plan 1. Acute renal failure (post obstructive) requiring temporary HD 2. Digoxin toxicity - resolved 3. Hyperkalemia and supratherapeutic INR - now resolved - INR normalized 4. Altered mental status/toxic metabolic encephalopathy - due to uremia - now improved 5. Permanent atrial fibrillation with variable ventricular response 6. History of hypertension 7. COPD/emphysema with history of exacerbation 8. Type 2 diabetes mellitus 9. Post respiratory failure extubated yesterday 10. Pelvic mass with extrinsic ureteral compression and hydronephrosis post intervention - post bilateral stents, bladder biopsy PLAN: 1. Monitor renal function and electrolytes. 2. Continue Cardizem CD and titrate 3. Currently on Eliquis 5 mg BID 4. Consider ACEI or ARB once renal function stabilizes 5. Fall precaution. PT as tolerated Guarded Further plans are to follow Han Nowak MD
[2017-06-11 08:29] LABS: BASOPHIL 0.5 % (0-2.0); EOSINOPHIL 4.8 % (0-4.5); MEAN PLT VOLUME 8.1 fl (7.5-11.1); NEUTROPHILS 77.6 % (42.8-82.8); PLATELET COUNT 468 K/MM3 (134-434); RDW 13.7 % (11.9-15.9); WHITE BLOOD COUNT 16.3 K/mm3 (4.0-10.0)
[2017-06-11] MEDS ORDERED: PT OWN MED DRAWER 7, Y5N ONE ×2 (08:59→20:52)
[2017-06-11] MEDS: BICALUTAMIDE 50 MG TABLET (FP) PO SCH (09:01)
[2017-06-11] MEDS: APIXABAN 5 MG TABLET PO SCH ×2 (09:01→21:49)
[2017-06-11] MEDS: PANTOPRAZOLE 40 MG TABLET (FP) PO SCH (09:01)
[2017-06-11] MEDS: NICOTINE 14 MG/24 HOURS TOPICAL PATCH TD SCH (09:01)
[2017-06-11] MEDS: POLYETHYLENE GLYCOL 3350 119 GM BTL PO SCH (09:02)
[2017-06-11 09:34] LABS: ANION GAP 10 (8-16); CALCIUM 9.9 mg/dL (8.5-10.1); CO2 24 mmol/L (21-32); CREATININE 1.6 mg/dL (0.7-1.3); GLUCOSE,RANDOM 112 mg/dL (74-106); MAGNESIUM 1.9 mg/dL (1.8-2.4)
--- NOTE | 2017-06-11 10:31 | PN ---
Progress Note (short form) - Note Progress Note: Neurology History of Present Illness The patient is a 76 yo M poor historian with a past medical history significant for chronic AF on anticoagulation, emphysema with long history of cigarette smoking, diverticulitis, hypercholesterolemia, type 2 DM and HTN who presents with confusion. As per the patients daughter, she went to check on him after she didnt hear from him. The patient states he lives alone. He endorses a decreased appetite. He was admitted and had extensive course with acute renal failure and I was consulted for altered mental status. He had not been aware of location, date, and at bedside he was confused. CT head repeated and did not show acute changes. MRI brain completed and showed moderate atrophy but no acute changes. He has Afib on Coumadin. Ammonia level checked and was normal. Over the weekend, transferred to ICU, required intubation and with acute respiratory failure but has improved since then downgraded to floor status and remains awake and conversive but not fully aware. Completed CT head again and did not show acute changes. Completed bone scan, didn't need Ativan for it and was already somnolent. Spoke to at bedside in detail over weekend regarding clinical course as well as prognosis. He is medically improving but cognitively at times still confused. Given context of new environment and ongoing medical issues, we discussed his cognition can improve but will likely take time and medical issues to clear up. She is considering rehab placement near her, 400 miles away, and inquiring about residential vs short term care. Again today, he was in hallway but more calm and coherent today. Was able to tell me he's at [place] and believes it's June but able to tell me the year. Active Medications Apixaban (Eliquis -) 5 mg PO BID [facility] Last Admin: 06/11/17 09:01 Dose: 5 mg Artificial Tears (Artificial Tears) 1 drop OU BID PRN PRN Reason: DRY EYES Last Admin: 06/06/17 21:22 Dose: 1 drop Bicalutamide (Casodex -) 50 mg PO DAILY [facility] Last Admin: 06/11/17 09:01 Dose: 50 mg Diltiazem HCl (Cardizem Cd -) 240 mg PO DAILY [facility] Last Admin: 06/11/17 09:01 Dose: 240 mg Nicotine (Nicoderm Patch -) 14 mg TD DAILY [facility] Last Admin: 06/11/17 09:01 Dose: 14 mg Pantoprazole Sodium (Protonix -) 40 mg PO DAILY [facility] Last Admin: 06/11/17 09:01 Dose: 40 mg Polyethylene Glycol (Miralax (For Daily Use) -) 17 gm PO DAILY [facility] Last Admin: 06/11/17 09:02 Dose: 17 gm *Physical Exam Last Vital Signs Temp Pulse Resp BP Pulse Ox 97.2 F L 93 H 18 132/73 96 06/11/17 10:00 06/11/17 10:00 06/11/17 10:00 06/11/17 10:00 06/11/17 10:00 Well developed, well nourished. alert to person and place but not time. Afebrile. No acute distress. HEENT: Normocephalic, atraumatic. PERRLA, EOMI. No conjunctival pallor. Sclera are non- icteric. Moist mucous membranes. Oropharynx is clear. NECK: Supple. Full ROM. No JVD. Carotid pulses 2+ and symmetric, without bruits. No thyromegaly. No lymphadenopathy. CARDIOVASCULAR: Regular rate and rhythm. No murmurs, rubs, or gallops. Distal pulses are 2+ and symmetric. PULMONARY: No evidence of respiratory distress. Bilateral crackles. No wheezing, rales or rhonchi. ABDOMINAL: Soft. Non-tender. Non-distended. No rebound or guarding. No organomegaly. Normoactive bowel sounds. Old surgical scars on abdomen. MUSCULOSKELETAL Normal range of motion at all joints. No bony deformities or tenderness. No CVA tenderness. EXTREMITIES: No cyanosis. No clubbing. No edema. No calf tenderness. SKIN: Warm and dry. Normal capillary refill. No rashes. No jaundice. NEUROLOGICAL: Following commands, moving all extremities and responds to questions, CN intact , sensory nml, gait deferred CBCD WBC 16.3 K/mm3 (4.0-10.0) H D 06/11/17 07:45 RBC 4.15 M/mm3 (4.00-5.60) 06/11/17 07:45 Hgb 12.9 GM/dL (11.7-16.9) 06/11/17 07:45 Hct 37.8 % (35.4-49) 06/11/17 07:45 MCV 91.0 fl (80-96) 06/11/17 07:45 MCHC 34.0 g/dl (32.0-35.9) 06/11/17 07:45 RDW 13.7 % (11.9-15.9) 06/11/17 07:45 Plt Count 468 K/MM3 (134-434) H D 06/11/17 07:45 MPV 8.1 fl (7.5-11.1) 06/11/17 07:45 CMP Sodium 139 mmol/L (136-145) 06/11/17 07:45 Potassium 4.8 mmol/L (3.5-5.1) 06/11/17 07:45 Chloride 105 mmol/L (98-107) 06/11/17 07:45 Carbon Dioxide 24 mmol/L (21-32) 06/11/17 07:45 Anion Gap 10 (8-16) 06/11/17 07:45 BUN 15 mg/dL (7-18) 06/11/17 07:45 Creatinine 1.6 mg/dL (0.7-1.3) H 06/11/17 07:45 Creat Clearance w eGFR 42.46 (>60) 06/10/17 07:00 Calcium 9.9 mg/dL (8.5-10.1) 06/11/17 07:45 Total Bilirubin 0.6 mg/dL (0.2-1.0) D 06/10/17 07:00 AST 16 U/L (15-37) 06/10/17 07:00 ALT 26 U/L (12-78) D 06/10/17 07:00 Alkaline Phosphatase 79 U/L (45-117) 06/10/17 07:00 Total Protein 5.6 g/dl (6.4-8.2) L 06/10/17 07:00 Albumin 2.6 g/dl (3.4-5.0) L 06/10/17 07:00 - RADIOLOGY CT head and MRI brain reviewed Medical Decision Making 76 yo M poor historian with a past medical history significant for chronic AF on anticoagulation, emphysema with long history of cigarette smoking, diverticulitis, hypercholesterolemia, type 2 DM and HTN who presents with confusion. As per the patients daughter, she went to check on him after she didnt hear from him. The patient states he lives alone. He endorses a decreased appetite. He was admitted and had extensive course with acute renal failure and now with altered mental status. He has not been aware of location, date, and at bedside he was confused. CT head repeated and did not show acute changes. I reviewed MRI brain and showed moderate atrophy but no acute changes. He has Afib on Coumadin. Ammonia level checked and was normal. Remains awake and conversive but not fully at baseline mental status but improved. Currently extubated, monitor respiratory status and oxygen satuation. 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 Continue hydration and adequate PO intake. Continue medical optimization. Extensive conversation with over weekend regarding ongoing care and prognosis. Plan for discharge as able. Cognitively seems to be better today and hopefully continues to improve.
--- NOTE | 2017-06-11 11:23 | DS ---
Physical Examination Vital Signs: Vital Signs Temperature 97.2 F L 06/11/17 10:00 Pulse Rate 93 H 06/11/17 10:00 Respiratory Rate 18 06/11/17 10:00 Blood Pressure 132/73 06/11/17 10:00 O2 Sat by Pulse Oximetry (%) 96 06/11/17 10:00 sitting in hallway has periods of confusion knows his name and his daugther name as well Constitutional: Yes: Calm Cardiovascular: Yes: Regular Rate and Rhythm, S1, S2 Respiratory: Yes: CTA Bilaterally Gastrointestinal: Yes: Normal Bowel Sounds, Soft Renal/: Yes: Dutton Present Neurological: Yes: Alert, Confusion Labs: CBC, BMP 06/11/17 07:45 06/11/17 07:45 Discharge Summary Reason For Visit: DIABETES MELLITUS/ACUTE RENAL FAILURE/CONGESTIVE Current Active Problems Acute renal failure (Acute) Acute respiratory failure (Acute) Adenocarcinoma of prostate (Acute) Asbestos-induced pleural plaque (Acute) Atrial fibrillation with RVR (Acute) Confusion (Acute) Dehydration, moderate (Acute) Diastolic CHF (Acute) Generalized weakness (Acute) HTN (hypertension) (Acute) Hydronephrosis (Acute) Hyperkalemia (Acute) Hyperphosphatemia (Acute) Hypokalemia (Acute) Hyponatremia (Acute) Metabolic acidosis (Acute) Pelvic mass (Acute) Prostate cancer (Acute) Uremia (Acute) Hospital Course: - Primary Care Physician PCP: Maye Castro - Admission Chief Complaint: AMS History of Present Illness: The patient is a 76 yo M poor historian with a past medical history significant for chronic AF on anticoagulation, emphysema with long history of cigarette smoking, diverticulitis, hyperlipidemia, type 2 DM and HTN who presented to [facility] ED with confusion. As per patient's tenant in the room, his daughter Fidel called the tenant to check on his father because she had not spoken to him over 24 hours. After the tenant went in the apartment to check on the patient, patient was lying in bed, lethargic but responsive, saying he doesn't feel good. Tenant called the ambulance, patient was awake and alert and was able to transfer himself. After coming to the ER, he slowly deteriorated. He was found to be in acute renal failure, emergent dialysis was needed. Nephrology was called in. History Source: Friend, Medical Record Limitations to Obtaining History: Clinical Condition - Past Medical History Cardiovascular: Yes: AFIB, HTN, Hyperlipdemia Pulmonary: Yes: COPD Gastrointestinal: Yes: Diverticulitis Endocrine: Yes: Diabetes Mellitus - Smoking History Smoking history: Current every day smoker Have you smoked in the past 12 months: Yes Aproximately how many cigarettes per day: 20 in hospital: in ER on admission found to have be in ARF emergent HD, Cr level above 12 and potassium was elevated as well during hospital course patient had Ct scan of abdomen and pelvic ultrasound showed pelvic mass : biopsy was done showed adenocarcinoma of prostate, also found to have bilateral hydronephrosis: urology called and bilateral JJ stents placed also found to have digoxin toxicity supratherepuetic INR hold coumadin then put on eliquis for permenant afib rate control with cardizem porstate cancer started on casodex and Radiation oncology saw the patient and recommed external beam radiation family wants him to go to [facility] near where they live awaiting placment plan to remove dutton give a trial of voiding Condition: Poor - Instructions Diet, Activity, Other Instructions: Radiation oncology FU Urology follow up as well Referrals: Maye Castro MD [Primary Care Provider] - [facility]position: [facility] - Home Medications Comprehensive Discharge Medication List: Ambulatory Orders Atorvastatin Calcium DAILY 05/20/17 Digoxin DAILY 05/20/17 Diltiazem HCl [Cartia Xt] DAILY 05/20/17 Gemfibrozil DAILY 05/20/17 Metoprolol Tartrate BID 05/20/17 Custar-3 Acid Ethyl Esters [Lovaza] BID 05/20/17 Ranitidine [Zantac -] BID 05/20/17 Warfarin Sodium [Coumadin] DAILY 05/20/17
--- NOTE | 2017-06-11 11:28 | PN ---
Progress Note (short form) - Note Progress Note: remove dutton today send urine for UA and urine culture given the spike in WBC count trial of voiding if doesnot void in 8 hrs reinsert dutton awaiting placement to faciltiy Problem List - Problems (1) Prostate cancer Code(s): C61 - MALIGNANT NEOPLASM OF PROSTATE (2) Atrial fibrillation with RVR Code(s): I48.91 - UNSPECIFIED ATRIAL FIBRILLATION (3) Hydronephrosis Code(s): N13.30 - UNSPECIFIED HYDRONEPHROSIS Qualifiers: Hydronephrosis type: unspecified Qualified Code(s): N13.30 - Unspecified hydronephrosis (4) Diastolic CHF Code(s): I50.30 - UNSPECIFIED DIASTOLIC (CONGESTIVE) HEART FAILURE Qualifiers : Congestive heart failure chronicity: chronic Qualified Code(s): I50.32 - Chronic diastolic (congestive) heart failure (5) Acute renal failure Code(s): N17.9 - ACUTE KIDNEY FAILURE, UNSPECIFIED Qualifiers: Acute renal failure type: unspecified
--- NOTE | 2017-06-11 12:46 | PN ---
Progress Note (short form) - Note Progress Note: Renal Follow up for SILAS Pt seen and examined in the hallway awake and alert no acute complaints dutton in place with dark urine Vital Signs Temperature 97.2 F L 06/11/17 10:00 Pulse Rate 93 H 06/11/17 10:00 Respiratory Rate 18 06/11/17 10:00 Blood Pressure 132/73 06/11/17 10:00 O2 Sat by Pulse Oximetry (%) 96 06/11/17 10:00 Intake & Output 06/08/17 06/09/17 06/10/17 06/11/17 23:59 23:59 23:59 23:59 Intake Total 7744 749 1346 200 Output Total 3500 2150 2400 1200 Balance -1800 -1650 -700 -1000 Weight 233 lb 231 lb 5 oz 231 lb 232 lb 4 oz Gen: awake and alert CVS: RRR Lungs: CTA, anterior exam Abd: soft NT/ND Ext: No edema, clubbing or cyanosis : dutton in place CBC, BMP 06/11/17 07:45 06/11/17 07:45 Current Medications Apixaban (Eliquis -) 5 mg PO BID [facility] Last Admin: 06/11/17 09:01 Dose: 5 mg Artificial Tears (Artificial Tears) 1 drop OU BID PRN PRN Reason: DRY EYES Last Admin: 06/06/17 21:22 Dose: 1 drop Bicalutamide (Casodex -) 50 mg PO DAILY [facility] Last Admin: 06/11/17 09:01 Dose: 50 mg Diltiazem HCl (Cardizem Cd -) 240 mg PO DAILY [facility] Last Admin: 06/11/17 09:01 Dose: 240 mg Nicotine (Nicoderm Patch -) 14 mg TD DAILY [facility] Last Admin: 06/11/17 09:01 Dose: 14 mg Pantoprazole Sodium (Protonix -) 40 mg PO DAILY [facility] Last Admin: 06/11/17 09:01 Dose: 40 mg Polyethylene Glycol (Miralax (For Daily Use) -) 17 gm PO DAILY [facility] Last Admin: 06/11/17 09:02 Dose: 17 gm A/P 76 year old gentleman with PMhx of Afib on Coumadin, COPD, Hyperlipidemia, DM Type 2, Hypertension who presented with AMS and found to have BUN/Cr of 109/11 and K of 7.8. #Acute Renal failure secondary to bladder ilet obstruction Renal function stable and pt appears evolemic dutton remains in place, plan to D/c today and trial of void Will need repeat labs on discharge to monitor renal function #Prostate Ca/Bladder inlet obstruction Oncology and urology follow up s/p stenting, will need urologic follow up on discharge trial of void prior to discharge Thank you Donta Carmona Problem List - Problems (1) Acute renal failure Code(s): N17.9 - ACUTE KIDNEY FAILURE, UNSPECIFIED Qualifiers: Acute renal failure type: unspecified Qualified Code(s): N17.9 - Acute kidney failure, unspecified (2) Atrial fibrillation with RVR Code(s): I48.91 - UNSPECIFIED ATRIAL FIBRILLATION (3) HTN (hypertension) Code(s): I10 - ESSENTIAL (PRIMARY) HYPERTENSION Qualifiers: Hypertension type: essential hypertension Qualified Code(s): I10 - Essential (primary) hypertension (4) Hyperkalemia Code(s): E87.5 - HYPERKALEMIA (5) Uremia Code(s): N19 - UNSPECIFIED KIDNEY FAILURE (6) Metabolic acidosis Code(s): E87.2 - ACIDOSIS (7) Hyperphosphatemia Code(s): E83.39 - OTHER DISORDERS OF PHOSPHORUS METABOLISM (8) Hyponatremia Code(s): E87.1 - HYPO-OSMOLALITY AND HYPONATREMIA
[2017-06-11 15:13] LABS: URINE APPEARANCE CLOUDY; URINE BILIRUBIN NEGATIVE (NEGATIVE); URINE BLOOD 2+ (NEGATIVE); URINE GLUCOSE (UA) 1+ (NEGATIVE); URINE KETONE NEGATIVE (NEGATIVE); URINE NITRITE POSITIVE (NEGATIVE); URINE UROBILINOGEN NEGATIVE mg/dL (0.2-1.0)
[2017-06-11 15:24] LABS: URINE COLOR BROWN; URINE LEUK ESTERASE 1+ (NEGATIVE); URINE PROTEIN 2+ (NEGATIVE)
[2017-06-11 15:39] LABS: URINE BACTERIA MANY /hpf (NONE SEEN); URINE HYALINE CAST 64 /lpf; URINE MUCUS MANY; URINE RBC 2491 /hpf (0-3); URINE WBC 513 /hpf (3-5)
--- NOTE | 2017-06-11 20:11 | PN ---
Progress Note, Physician Chief Complaint: Not in distress sitting in hallway History of Present Illness: Patient was seen and examined. Awake, but bit more confused today according to daughter. Chart was reviewed Denies chest pain, SOB or palpitations, less confused - Current Medication List Current Medications: Active Medications Apixaban (Eliquis -) 5 mg PO BID [facility] Last Admin: 06/11/17 09:01 Dose: 5 mg Artificial Tears (Artificial Tears) 1 drop OU BID PRN PRN Reason: DRY EYES Last Admin: 06/06/17 21:22 Dose: 1 drop Bicalutamide (Casodex -) 50 mg PO DAILY [facility] Last Admin: 06/11/17 09:01 Dose: 50 mg Diltiazem HCl (Cardizem Cd -) 240 mg PO DAILY [facility] Last Admin: 06/11/17 09:01 Dose: 240 mg Nicotine (Nicoderm Patch -) 14 mg TD DAILY [facility] Last Admin: 06/11/17 09:01 Dose: 14 mg Pantoprazole Sodium (Protonix -) 40 mg PO DAILY [facility] Last Admin: 06/11/17 09:01 Dose: 40 mg Polyethylene Glycol (Miralax (For Daily Use) -) 17 gm PO DAILY [facility] Last Admin: 06/11/17 09:02 Dose: 17 gm - Objective Vital Signs: Vital Signs Temperature 98.1 F 06/11/17 14:00 Pulse Rate 92 H 06/11/17 14:00 Respiratory Rate 20 06/11/17 14:00 Blood Pressure 142/76 06/11/17 14:00 O2 Sat by Pulse Oximetry (%) 96 06/11/17 10:00 Neck: Yes: Supple Cardiovascular: Yes: Pulse Irregular, S1, S2 Respiratory: Yes: Diminished Gastrointestinal: Yes: Normal Bowel Sounds, Soft, Abdomen, Obese. No: Tenderness Edema: No Labs: CBC, BMP 06/11/17 07:45 06/11/17 07:45 Problem List - Problems (1) Acute renal failure Code(s): N17.9 - ACUTE KIDNEY FAILURE, UNSPECIFIED Qualifiers: Acute renal failure type: unspecified Qualified Code(s): N17.9 - Acute kidney failure, unspecified (2) Atrial fibrillation with RVR Code(s): I48.91 - UNSPECIFIED ATRIAL FIBRILLATION (3) Confusion Code(s): R41.0 - DISORIENTATION, UNSPECIFIED (4) HTN (hypertension) Code(s): I10 - ESSENTIAL (PRIMARY) HYPERTENSION Qualifiers: Hypertension type: essential hypertension Qualified Code(s): I10 - Essential (primary) hypertension (5) Hyperkalemia Code(s): E87.5 - HYPERKALEMIA (6) Uremia Code(s): N19 - UNSPECIFIED KIDNEY FAILURE (7) Diabetes Code(s): E11.9 - TYPE 2 DIABETES MELLITUS WITHOUT COMPLICATIONS Qualifiers: Diabetes mellitus type: type 2 Diabetes mellitus complication status: without complication (8) Supratherapeutic INR Code(s): R79.1 - ABNORMAL COAGULATION PROFILE Assessment/Plan 1. Acute renal failure (post obstructive) requiring temporary HD 2. Digoxin toxicity - resolved 3. Hyperkalemia and supratherapeutic INR - now resolved - INR normalized 4. Altered mental status/toxic metabolic encephalopathy - due to uremia - now improved 5. Permanent atrial fibrillation with variable ventricular response 6. History of hypertension 7. COPD/emphysema with history of exacerbation 8. Type 2 diabetes mellitus 9. Post respiratory failure extubated yesterday 10. Pelvic mass with extrinsic ureteral compression and hydronephrosis post intervention - post bilateral stents, bladder biopsy PLAN: 1. Monitor renal function and electrolytes. 2. Continue Cardizem CD and titrate 3. Currently on Eliquis 5 mg BID 4. Consider ACEI or ARB once renal function stabilizes 5. Fall precaution. PT as tolerated. For SNF placement Guarded Further plans are to follow Han Nowak MD
[2017-06-12 07:39] VITALS: TEMP 97.6
[2017-06-12] MEDS ORDERED: PT OWN MED DRAWER 7, Y5N ONE (09:15)
[2017-06-12] MEDS: PANTOPRAZOLE 40 MG TABLET (FP) PO SCH (09:19)
[2017-06-12] MEDS: BICALUTAMIDE 50 MG TABLET (FP) PO SCH (09:19)
[2017-06-12] MEDS: POLYETHYLENE GLYCOL 3350 119 GM BTL PO SCH (09:20)
[2017-06-12] MEDS: APIXABAN 5 MG TABLET PO SCH (09:20)
[2017-06-12] MEDS: NICOTINE 14 MG/24 HOURS TOPICAL PATCH TD SCH (09:20)
--- NOTE | 2017-06-12 10:30 | PN ---
Progress Note (short form) - Note Progress Note: Neurology History of Present Illness The patient is a 76 yo M poor historian with a past medical history significant for chronic AF on anticoagulation, emphysema with long history of cigarette smoking, diverticulitis, hypercholesterolemia, type 2 DM and HTN who presents with confusion. As per the patients daughter, she went to check on him after she didnt hear from him. The patient states he lives alone. He endorses a decreased appetite. He was admitted and had extensive course with acute renal failure and I was consulted for altered mental status. He had not been aware of location, date, and at bedside he was confused. CT head repeated and did not show acute changes. MRI brain completed and showed moderate atrophy but no acute changes. He has Afib on Coumadin. Ammonia level checked and was normal. Over the weekend, transferred to ICU, required intubation and with acute respiratory failure but has improved since then downgraded to floor status and remains awake and conversive but not fully aware. Completed CT head again and did not show acute changes. Completed bone scan, didn't need Ativan for it and was already somnolent. Spoke to at bedside in detail over weekend regarding clinical course as well as prognosis. He is medically improving but cognitively at times still confused. Given context of new environment and ongoing medical issues, we discussed his cognition can improve but will likely take time and medical issues to clear up. She is considering rehab placement near her, [place] miles away, and inquiring about [facility] vs short term care. Remains calm during my encounter but eager to leave hospital. No new neurologic issues over night. Active Medications Apixaban (Eliquis -) 5 mg PO BID [facility] Last Admin: 06/12/17 09:20 Dose: 5 mg Artificial Tears (Artificial Tears) 1 drop OU BID PRN PRN Reason: DRY EYES Last Admin: 06/06/17 21:22 Dose: 1 drop Bicalutamide (Casodex -) 50 mg PO DAILY [facility] Last Admin: 06/12/17 09:19 Dose: 50 mg Diltiazem HCl (Cardizem Cd -) 240 mg PO DAILY [facility] Last Admin: 06/12/17 09:19 Dose: 240 mg Nicotine (Nicoderm Patch -) 14 mg TD DAILY [facility] Last Admin: 06/12/17 09:20 Dose: 14 mg Pantoprazole Sodium (Protonix -) 40 mg PO DAILY [facility] Last Admin: 06/12/17 09:19 Dose: 40 mg Polyethylene Glycol (Miralax (For Daily Use) -) 17 gm PO DAILY [facility] Last Admin: 06/12/17 09:20 Dose: 17 gm *Physical Exam Vital Signs Temperature 97.6 F 06/12/17 06:40 Pulse Rate 91 H 06/12/17 06:40 Respiratory Rate 20 06/12/17 06:40 Blood Pressure 148/77 06/12/17 06:40 O2 Sat by Pulse Oximetry (%) 96 06/11/17 20:42 Well developed, well nourished. alert to person and place but not time. Afebrile. No acute distress. HEENT: Normocephalic, atraumatic. PERRLA, EOMI. No conjunctival pallor. Sclera are non- icteric. Moist mucous membranes. Oropharynx is clear. NECK: Supple. Full ROM. No JVD. Carotid pulses 2+ and symmetric, without bruits. No thyromegaly. No lymphadenopathy. CARDIOVASCULAR: Regular rate and rhythm. No murmurs, rubs, or gallops. Distal pulses are 2+ and symmetric. PULMONARY: No evidence of respiratory distress. Bilateral crackles. No wheezing, rales or rhonchi. ABDOMINAL: Soft. Non-tender. Non-distended. No rebound or guarding. No organomegaly. Normoactive bowel sounds. Old surgical scars on abdomen. MUSCULOSKELETAL Normal range of motion at all joints. No bony deformities or tenderness. No CVA tenderness. EXTREMITIES: No cyanosis. No clubbing. No edema. No calf tenderness. SKIN: Warm and dry. Normal capillary refill. No rashes. No jaundice. NEUROLOGICAL: Following commands, moving all extremities and responds to questions, CN intact , sensory nml, gait deferred CBCD WBC 16.3 K/mm3 (4.0-10.0) H D 06/11/17 07:45 RBC 4.15 M/mm3 (4.00-5.60) 06/11/17 07:45 Hgb 12.9 GM/dL (11.7-16.9) 06/11/17 07:45 Hct 37.8 % (35.4-49) 06/11/17 07:45 MCV 91.0 fl (80-96) 06/11/17 07:45 MCHC 34.0 g/dl (32.0-35.9) 06/11/17 07:45 RDW 13.7 % (11.9-15.9) 06/11/17 07:45 Plt Count 468 K/MM3 (134-434) H D 06/11/17 07:45 MPV 8.1 fl (7.5-11.1) 06/11/17 07:45 CMP Sodium 139 mmol/L (136-145) 06/11/17 07:45 Potassium 4.8 mmol/L (3.5-5.1) 06/11/17 07:45 Chloride 105 mmol/L (98-107) 06/11/17 07:45 Carbon Dioxide 24 mmol/L (21-32) 06/11/17 07:45 Anion Gap 10 (8-16) 06/11/17 07:45 BUN 15 mg/dL (7-18) 06/11/17 07:45 Creatinine 1.6 mg/dL (0.7-1.3) H 06/11/17 07:45 Creat Clearance w eGFR 42.46 (>60) 06/10/17 07:00 Calcium 9.9 mg/dL (8.5-10.1) 06/11/17 07:45 Total Bilirubin 0.6 mg/dL (0.2-1.0) D 06/10/17 07:00 AST 16 U/L (15-37) 06/10/17 07:00 ALT 26 U/L (12-78) D 06/10/17 07:00 Alkaline Phosphatase 79 U/L (45-117) 06/10/17 07:00 Total Protein 5.6 g/dl (6.4-8.2) L 06/10/17 07:00 Albumin 2.6 g/dl (3.4-5.0) L 06/10/17 07:00 - RADIOLOGY CT head and MRI brain reviewed Medical Decision Making 76 yo M poor historian with a past medical history significant for chronic AF on anticoagulation, emphysema with long history of cigarette smoking, diverticulitis, hypercholesterolemia, type 2 DM and HTN who presents with confusion. As per the patients daughter, she went to check on him after she didnt hear from him. The patient states he lives alone. He endorses a decreased appetite. He was admitted and had extensive course with acute renal failure and now with altered mental status. He has not been aware of location, date, and at bedside he was confused. CT head repeated and did not show acute changes. I reviewed MRI brain and showed moderate atrophy but no acute changes. He has Afib on Coumadin. Ammonia level checked and was normal. Remains awake and conversive but not fully at baseline mental status but improved. Currently extubated, monitor respiratory status and oxygen satuation. Continue blood pressure control, continue monitoring renal function, follow up tax compliance agent rec 'd. Continue hydration and adequate PO intake. Continue medical optimization. Extensive conversation with over weekend regarding ongoing care and prognosis. Plan for discharge as able. Cognitively seems to be better of late and hopefully continues to improve.
--- NOTE | 2017-06-12 11:00 | PN ---
EBEN Griffith Note History of Present Illness: pt started on casodex doing well needs to start lupron domenica pt to f/u in office p d/c - Objective Vital Signs: Vital Signs Temperature 97.6 F 06/12/17 06:40 Pulse Rate 94 H 06/12/17 10:00 Respiratory Rate 20 06/12/17 10:00 Blood Pressure 152/64 06/12/17 10:00 O2 Sat by Pulse Oximetry (%) 96 06/11/17 20:42 Labs/Additional Data: CBC, BMP 06/11/17 07:45 06/11/17 07:45 INR, PTT INR 1.08 (0.82-1.09) 05/30/17 06:40
[2017-06-12 11:51] LABS: BASOPHIL 1.1 % (0-2.0); EOSINOPHIL 4.2 % (0-4.5); MCHC 33.9 g/dl (32.0-35.9); MEAN CELL VOLUME 91.6 fl (80-96); MEAN PLT VOLUME 7.1 fl (7.5-11.1); NEUTROPHILS 78.7 % (42.8-82.8); PLATELET COUNT 448 K/MM3 (134-434); RDW 13.4 % (11.9-15.9); WHITE BLOOD COUNT 15.5 K/mm3 (4.0-10.0)
--- NOTE | 2017-06-12 12:13 | PN ---
Progress Note, Physician Chief Complaint: Not in distress sitting in hallway History of Present Illness: Patient was seen and examined. Awake. Chart was reviewed Denies chest pain, SOB or palpitations, - Current Medication List Current Medications: Active Medications Apixaban (Eliquis -) 5 mg PO BID [facility] Last Admin: 06/12/17 09:20 Dose: 5 mg Artificial Tears (Artificial Tears) 1 drop OU BID PRN PRN Reason: DRY EYES Last Admin: 06/06/17 21:22 Dose: 1 drop Bicalutamide (Casodex -) 50 mg PO DAILY [facility] Last Admin: 06/12/17 09:19 Dose: 50 mg Diltiazem HCl (Cardizem Cd -) 240 mg PO DAILY [facility] Last Admin: 06/12/17 09:19 Dose: 240 mg Nicotine (Nicoderm Patch -) 14 mg TD DAILY [facility] Last Admin: 06/12/17 09:20 Dose: 14 mg Pantoprazole Sodium (Protonix -) 40 mg PO DAILY [facility] Last Admin: 06/12/17 09:19 Dose: 40 mg Polyethylene Glycol (Miralax (For Daily Use) -) 17 gm PO DAILY [facility] Last Admin: 06/12/17 09:20 Dose: 17 gm - Objective Vital Signs: Vital Signs Temperature 97.6 F 06/12/17 06:40 Pulse Rate 94 H 06/12/17 10:00 Respiratory Rate 20 06/12/17 10:00 Blood Pressure 152/64 06/12/17 10:00 O2 Sat by Pulse Oximetry (%) 96 06/11/17 20:42 Neck: Yes: Supple Cardiovascular: Yes: Pulse Irregular, S1, S2 Respiratory: Yes: Diminished Gastrointestinal: Yes: Normal Bowel Sounds, Soft, Abdomen, Obese. No: Tenderness Edema: No Labs: CBC, BMP 06/12/17 11:46 Problem List - Problems (1) Acute renal failure Code(s): N17.9 - ACUTE KIDNEY FAILURE, UNSPECIFIED Qualifiers: Acute renal failure type: unspecified Qualified Code(s): N17.9 - Acute kidney failure, unspecified (2) Atrial fibrillation with RVR Code(s): I48.91 - UNSPECIFIED ATRIAL FIBRILLATION (3) Confusion Code(s): R41.0 - DISORIENTATION, UNSPECIFIED (4) HTN (hypertension) Code(s): I10 - ESSENTIAL (PRIMARY) HYPERTENSION Qualifiers: Hypertension type: essential hypertension Qualified Code(s): I10 - Essential (primary) hypertension (5) Hyperkalemia Code(s): E87.5 - HYPERKALEMIA (6) Uremia Code(s): N19 - UNSPECIFIED KIDNEY FAILURE (7) Diabetes Code(s): E11.9 - TYPE 2 DIABETES MELLITUS WITHOUT COMPLICATIONS Qualifiers: Diabetes mellitus type: type 2 Diabetes mellitus complication status: without complication (8) Supratherapeutic INR Code(s): R79.1 - ABNORMAL COAGULATION PROFILE Assessment/Plan 1. Acute renal failure (post obstructive) requiring temporary HD 2. Digoxin toxicity - resolved 3. Hyperkalemia and supratherapeutic INR - now resolved - INR normalized 4. Altered mental status/toxic metabolic encephalopathy - due to uremia - now improved 5. Permanent atrial fibrillation with variable ventricular response 6. History of hypertension 7. COPD/emphysema with history of exacerbation 8. Type 2 diabetes mellitus 9. Post respiratory failure extubated yesterday 10. Pelvic mass with extrinsic ureteral compression and hydronephrosis post intervention - post bilateral stents, bladder biopsy PLAN: 1. Monitor renal function and electrolytes. 2. Continue Cardizem CD and titrate 3. Currently on Eliquis 5 mg BID 4. Consider ACEI or ARB once renal function stabilizes 5. Fall precaution. PT as tolerated. For SNF placement Guarded Further plans are to follow Han Nowak MD
[2017-06-12 12:17] LABS: ALBUMIN 3.2 g/dl (3.4-5.0); ANION GAP 7 (8-16); BILIRUBIN,TOTAL 0.9 mg/dL (0.2-1.0); CALCIUM 9.4 mg/dL (8.5-10.1); CO2 29 mmol/L (21-32); GLUCOSE,RANDOM 117 mg/dL (74-106); SGOT/AST 19 U/L (15-37); SGPT/ALT 31 U/L (12-78); TOT PROT 6.7 g/dl (6.4-8.2)
[2017-06-12 12:18] LABS: ALK PHOS 95 U/L (45-117)
[2017-06-12 14:06] VITALS: BP 152/83; PULSE 95
--- NOTE | 2017-06-12 14:22 | PN ---
Progress Note (short form) - Note Progress Note: Renal Follow up for SILAS Pt seen and examined in the hallway no acute complaints denies any sob, chest pain, abd pain, N/V/D dutton removed yesterday Vital Signs Temperature 97.6 F 06/12/17 14:00 Pulse Rate 95 H 06/12/17 14:00 Respiratory Rate 18 06/12/17 14:00 Blood Pressure 152/83 06/12/17 14:00 O2 Sat by Pulse Oximetry (%) 96 06/11/17 20:42 Intake & Output 06/09/17 06/10/17 06/11/17 06/12/17 23:59 23:59 23:59 23:59 Intake Total 500 1700 500 300 Output Total 2150 2400 1500 Balance -1650 -700 -1000 300 Weight 231 lb 5 oz 231 lb 232 lb 4 oz 231 lb 2 oz Gen: awake and alert CVS: RRR Lungs: CTA, anterior exam Abd: soft NT/ND Ext: No edema, clubbing or cyanosis : dutton in place CBC, BMP 06/12/17 11:46 06/12/17 11:46 Current Medications Apixaban (Eliquis -) 5 mg PO BID [facility] Last Admin: 06/12/17 09:20 Dose: 5 mg Artificial Tears (Artificial Tears) 1 drop OU BID PRN PRN Reason: DRY EYES Last Admin: 06/06/17 21:22 Dose: 1 drop Bicalutamide (Casodex -) 50 mg PO DAILY [facility] Last Admin: 06/12/17 09:19 Dose: 50 mg Diltiazem HCl (Cardizem Cd -) 240 mg PO DAILY [facility] Last Admin: 06/12/17 09:19 Dose: 240 mg Nicotine (Nicoderm Patch -) 14 mg TD DAILY [facility] Last Admin: 06/12/17 09:20 Dose: 14 mg Pantoprazole Sodium (Protonix -) 40 mg PO DAILY [facility] Last Admin: 06/12/17 09:19 Dose: 40 mg Polyethylene Glycol (Miralax (For Daily Use) -) 17 gm PO DAILY [facility] Last Admin: 06/12/17 09:20 Dose: 17 gm A/P 76 year old gentleman with PMhx of Afib on Coumadin, COPD, Hyperlipidemia, DM Type 2, Hypertension who presented with AMS and found to have BUN/Cr of 109/11 and K of 7.8. #Acute Renal failure secondary to bladder ilet obstruction Cr odin to 2 from 1.6 yesterday, check bladder scan r/o retention after dutton removal pt appears evolemic at this time if no sign of obstruction may need trial of IVF hydration #Leukocytosis/UA suggestive of infection Urine culture results pending no currently on Abx #Prostate Ca/Bladder inlet obstruction Oncology and urology follow up s/p stenting, will need urologic follow up on discharge started Casodex Thank you Donta Carmona Problem List - Problems (1) Acute renal failure Code(s): N17.9 - ACUTE KIDNEY FAILURE, UNSPECIFIED Qualifiers: Acute renal failure type: unspecified Qualified Code(s): N17.9 - Acute kidney failure, unspecified (2) Atrial fibrillation with RVR Code(s): I48.91 - UNSPECIFIED ATRIAL FIBRILLATION (3) HTN (hypertension) Code(s): I10 - ESSENTIAL (PRIMARY) HYPERTENSION Qualifiers: Hypertension type: essential hypertension Qualified Code(s): I10 - Essential (primary) hypertension (4) Hyperkalemia Code(s): E87.5 - HYPERKALEMIA (5) Uremia Code(s): N19 - UNSPECIFIED KIDNEY FAILURE (6) Metabolic acidosis Code(s): E87.2 - ACIDOSIS (7) Hyperphosphatemia Code(s): E83.39 - OTHER DISORDERS OF PHOSPHORUS METABOLISM (8) Hyponatremia Code(s): E87.1 - HYPO-OSMOLALITY AND HYPONATREMIA
--- NOTE | 2017-06-12 16:16 | PN ---
Progress Note, Physician Chief Complaint: AMS, Acute renal failure, Prostate adenocarcinoma History of Present Illness: in bed at this time, alert, less confused. No dutton. Continent of urine and bowel. Bladder scan shows 150 ml urine. - Current Medication List Current Medications: Active Medications Apixaban (Eliquis -) 5 mg PO BID [facility] Last Admin: 06/12/17 09:20 Dose: 5 mg Artificial Tears (Artificial Tears) 1 drop OU BID PRN PRN Reason: DRY EYES Last Admin: 06/06/17 21:22 Dose: 1 drop Bicalutamide (Casodex -) 50 mg PO DAILY [facility] Last Admin: 06/12/17 09:19 Dose: 50 mg Diltiazem HCl (Cardizem Cd -) 240 mg PO DAILY [facility] Last Admin: 06/12/17 09:19 Dose: 240 mg Nicotine (Nicoderm Patch -) 14 mg TD DAILY [facility] Last Admin: 06/12/17 09:20 Dose: 14 mg Pantoprazole Sodium (Protonix -) 40 mg PO DAILY [facility] Last Admin: 06/12/17 09:19 Dose: 40 mg Polyethylene Glycol (Miralax (For Daily Use) -) 17 gm PO DAILY [facility] Last Admin: 06/12/17 09:20 Dose: 17 gm - Objective Vital Signs: Vital Signs Temperature 97.6 F 06/12/17 14:00 Pulse Rate 95 H 06/12/17 14:00 Respiratory Rate 18 06/12/17 14:00 Blood Pressure 152/83 06/12/17 14:00 O2 Sat by Pulse Oximetry (%) 96 06/11/17 20:42 Constitutional: Yes: Well Nourished, No Distress, Calm Cardiovascular: Yes: Pulse Irregular Respiratory: Yes: Regular Gastrointestinal: Yes: Normal Bowel Sounds Edema: No Peripheral Pulses WNL: Yes Neurological: Yes: Alert Labs: CBC, BMP 06/12/17 11:46 06/12/17 11:46 INR, PTT INR 1.08 (0.82-1.09) 05/30/17 06:40 Problem List - Problems (1) Acute renal failure Assessment/Plan: -BUN/Cr waxing and weaning -IVF -s/p BL renal stents -Dutton discontinued, continent of urine -F/U by renal outpatient. Code(s): N17.9 - ACUTE KIDNEY FAILURE, UNSPECIFIED Qualifiers: Acute renal failure type: unspecified Qualified Code(s): N17.9 - Acute kidney failure, unspecified (2) Atrial fibrillation with RVR Assessment/Plan: -chronic -started on Eliquis BID -on Cardizem po, Metoprolol not indicated at this time,rate is controlled Code(s): I48.91 - UNSPECIFIED ATRIAL FIBRILLATION (3) Generalized weakness Code(s): R53.1 - WEAKNESS (4) HTN (hypertension) Assessment/Plan: -controlled -on Cardizem -umberto or arb once renal fxn is stable Code(s): I10 - ESSENTIAL (PRIMARY) HYPERTENSION Qualifiers: Hypertension type: essential hypertension Qualified Code(s): I10 - Essential (primary) hypertension (5) Hydronephrosis Assessment/Plan: -repeat U/S renal shows mild right hydronephrosis -BUN/Cr trending up again Code(s): N13.30 - UNSPECIFIED HYDRONEPHROSIS Qualifiers: Hydronephrosis type: unspecified Qualified Code(s): N13.30 - Unspecified hydronephrosis (6) Confusion Assessment/Plan: -seen by neurology -less confused today Code(s): R41.0 - DISORIENTATION, UNSPECIFIED (7) Adenocarcinoma of prostate Assessment/Plan: -Pelvic mass biopsy showed prostate adenocarcinoma with extrinsic ureteral compression and hydronephrosis post intervention -PSA elevated to 203 -rad onc recommends androgen deprivation and daily external beam radiation therapy to the mass to relieve obstruction -Bone scan negative for mets -started on Bicalutamide Code(s): C61 - MALIGNANT NEOPLASM OF PROSTATE Assessment/Plan see problem list To [facility] today, may go to [facility] eventually once stable and beds available.
== END 2017-06-12 16:40 | DRG 715 ==
LOC: JER 20:20 → JERBED 23:57 → JICU 05-18 03:42 → J4W 05-22 20:00 → J5S 05-28 13:20 → JICU 06-01 04:49 → J6S 06-03 19:12
PROVIDERS: ADMIT Family Medicine; ATTEND Family Medicine
PROC: 05HM33Z Insertion of Infusion Device into Right Internal Jugular Vein, Percutaneous Approach (ICD-10-PCS; principal; 2017-05-18)
PROC: B543ZZA Ultrasonography of Right Jugular Veins, Guidance (ICD-10-PCS; 2017-05-18)
PROC: 5A1D00Z (ICD-10-PCS; 2017-05-18)
PROC: 02HV33Z Insertion of Infusion Device into Superior Vena Cava, Percutaneous Approach (ICD-10-PCS; 2017-05-24)
PROC: 0TBB8ZX Excision of Bladder, Via Natural or Artificial Opening Endoscopic, Diagnostic (ICD-10-PCS; 2017-05-27)
PROC: 0T5B8ZZ Destruction of Bladder, Via Natural or Artificial Opening Endoscopic (ICD-10-PCS; 2017-05-27)
PROC: 0T788DZ Dilation of Bilateral Ureters with Intraluminal Device, Via Natural or Artificial Opening Endoscopic (ICD-10-PCS; 2017-05-27)
PROC: BT14ZZZ Fluoroscopy of Kidneys, Ureters and Bladder (ICD-10-PCS; 2017-05-27)
PROC: 05PYX3Z Removal of Infusion Device from Upper Vein, External Approach (ICD-10-PCS; 2017-05-29)
PROC: 0BH17EZ Insertion of Endotracheal Airway into Trachea, Via Natural or Artificial Opening (ICD-10-PCS; 2017-06-01)
PROC: 5A1945Z Respiratory Ventilation, 24-96 Consecutive Hours (ICD-10-PCS; 2017-06-01)
DX: C61 Malignant neoplasm of prostate (principal); G92 Toxic encephalopathy; I50.31 Acute diastolic (congestive) heart failure; J96.01 Acute respiratory failure with hypoxia; N17.0 Acute kidney failure with tubular necrosis; E87.2 Acidosis; E87.1 Hypo-osmolality and hyponatremia; N13.39 Other hydronephrosis; N13.1 Hydronephrosis with ureteral stricture, not elsewhere classified; I48.2 Chronic atrial fibrillation; Z79.01 Long term (current) use of anticoagulants; F17.210 Nicotine dependence, cigarettes, uncomplicated; J43.9 Emphysema, unspecified; E11.9 Type 2 diabetes mellitus without complications; E78.00 Pure hypercholesterolemia, unspecified; I51.7 Cardiomegaly; E87.5 Hyperkalemia; E86.0 Dehydration; I10 Essential (primary) hypertension; D72.829 Elevated white blood cell count, unspecified; T42.0X5A Adverse effect of hydantoin derivatives, initial encounter; R41.82 Altered mental status, unspecified; I25.118 Atherosclerotic heart disease of native coronary artery with other forms of angina pectoris; J92.0 Pleural plaque with presence of asbestos; E83.39 Other disorders of phosphorus metabolism; R19.00 Intra-abdominal and pelvic swelling, mass and lump, unspecified site; E83.42 Hypomagnesemia
CPT/HCPCS: 31500; 36415; 36600; 49180; 70450-TC; 70551-TC; 71010-TC; 71250-TC; 74176-TC; 76000-TC; 76775-TC; 76856-TC; 78306-TC; 80048; 80053; 80061; 80162; 80307; 81003; 81015; 82140; 82436; 82570; 82728; 82803; 83036; 83520; 83540; 83550; 83605; 83721; 83735; 84100; 84133; 84153; 84155; 84156; 84165; 84300; 84443; 84484; 84550; 85025; 85027; 85610; 85730; 86038; 86256; 86593; 86704; 86706; 86708; 86803; 87040; 87086; 87186; 87340; 87389; 88305-TC; 88341-TC; 93005; 93010; 93306-TC; 93970-TC; 94002; 94640; 94760; 97116-GP; 97162-GP; 97164-GP; 99283-25; A9503; G0480; J1644

== ENCOUNTER 2017-06-25 14:16 | Inpatient (IN) | payer OTHER ==
[2017-06-25 14:35] VITALS: BMI 29.8
[2017-06-25 16:07] LABS: BASOPHIL 0.7 % (0-2.0); EOSINOPHIL 2.3 % (0-4.5); MCH 31.3 pg (25.7-33.7); MCHC 34.2 g/dl (32.0-35.9); MEAN CELL VOLUME 91.6 fl (80-96); MEAN PLT VOLUME 8.6 fl (7.5-11.1); NEUTROPHILS 82.4 % (42.8-82.8); PLATELET COUNT 290 K/MM3 (134-434); RDW 13.8 % (11.9-15.9); WHITE BLOOD COUNT 15.6 K/mm3 (4.0-10.0)
--- NOTE | 2017-06-25 16:08 | PDOC ---
History of Present Illness - General History Source: Patient, Old Records Exam Limitations: No Limitations <Ky Moody - Last Filed: 06/25/17 16:12> - General History Source: Patient Exam Limitations: No Limitations - History of Present Illness Initial Comments: 06/25/17 16:22 The patient is a 76 year old male resident from [place], with a significant past medical history of Afib, Emphysema, NIDDM, Diverticulitis, HTN, HLD, Prostate CA who presents to the emergency department with confusion an AMS. Upon arrival to the ED, patient is unaware of place. As per [place] staff, patient has been hallucinating and has been falling more recently. Patient denies any current complaints. Patient denies any pain, Patient was seen two weeks ago. Patient was found by tenant in his apartment generally weak and fatigued. According to EMR, patients creatinine was 12 and was found to be in acute renal failure. He denies chest pain, headache or dizziness. He denies fever, chills, abdominal pain, nausea, vomit, diarrhea or constipation. He denies dysuria, frequency, urgency or hematuria. Allergies: amoxicillin trihydrate, potassium clavulanate Past surgical history: Social history: Current everyday smoker PCP: Dr. Castro <Danisha Keane - Last Filed: 06/25/17 16:22> <Ann Lomas - Last Filed: 06/25/17 18:05> <Maddy Gustafson - Last Filed: 06/25/17 18:40> - General Chief Complaint: Altered Mental Status Stated Complaint: Altered Mental Status Time Seen by Provider: 06/25/17 14:27 Past History - Past Medical History Cardiac Disorders: Yes (A-FIB) COPD: No (emphysema) Diabetes: Yes (NIDDM) GI Disorders: Yes (divertivculitis) HTN: Yes Hypercholesterolemia: Yes - Psycho/Social/Smoking Cessation Hx Anxiety: No Suicidal Ideation: No Smoking History: Current every day smoker Have you smoked in the past 12 months: Yes Number of Cigarettes Smoked Daily: 20 Information on smoking cessation initiated: No 'Breaking Loose' booklet given: 09/28/14 Hx Alcohol Use: No Drug/Substance Use Hx: No Substance Use Type: None <Ky Moody - Last Filed: 06/25/17 16:12> <Danisha Keane - Last Filed: 06/25/17 16:22> <Ann Lomas - Last Filed: 06/25/17 18:05> <Maddy Gustafson - Last Filed: 06/25/17 18:40> - Past Medical History Allergies/Adverse Reactions: Allergies Allergy/AdvReac Type Severity Reaction Status Date / Time amoxicillin trihydrate Allergy Mild Verified 06/25/17 14:33 [From Augmentin] potassium clavulanate AdvReac Unknown Verified 06/25/17 14:33 [From Augmentin] Home Medications: Ambulatory Orders Apixaban [Eliquis -] 5 mg PO BID tablet 06/12/17 Bicalutamide [Casodex -] 50 mg PO DAILY tablet 06/12/17 Nicotine Patch [Nicoderm Patch -] 14 mg TD DAILY patch 06/12/17 Pantoprazole Sodium [Protonix -] 40 mg PO DAILY tab 06/12/17 Polyethylene Glycol 3350 [Miralax 119 gm Btl -] 17 gm PO DAILY bottle 06/12/17 Polyvinyl Alcohol [Artificial Tears] 1 drop OU BID PRN #0 ml 06/12/17 Acetaminophen [Tylenol] 650 mg PO QID PRN 06/25/17 Diltiazem HCl [Cardizem LA] 240 mg PO DAILY 06/25/17 Levofloxacin [Levaquin] 500 mg PO DAILY 06/25/17 Review of Systems - Review of Systems Able to Perform ROS?: Yes Comments:: 06/25/17 16:23 GENERAL/CONSTITUTIONAL: No fever or chills. No weakness. HEAD, EYES, EARS, NOSE AND THROAT: No change in vision. No ear pain or discharge. No sore throat. CARDIOVASCULAR: No chest pain or shortness of breath. RESPIRATORY: No cough, wheezing, or hemoptysis. GASTROINTESTINAL: No nausea, vomiting, diarrhea or constipation. GENITOURINARY: No dysuria, frequency, or change in urination. MUSCULOSKELETAL: No joint or muscle swelling or pain. No neck or back pain. SKIN: No rash NEUROLOGIC: No headache, vertigo, loss of consciousness, or change in strength/ sensation. ENDOCRINE: No increased thirst. No abnormal weight change. HEMATOLOGIC/LYMPHATIC: No anemia, easy bleeding, or history of blood clots. ALLERGIC/IMMUNOLOGIC: No hives or skin allergy. <Danisha Keane - Last Filed: 06/25/17 16:22> *Physical Exam - Vital Signs Last Vital Signs Temp Pulse Resp BP Pulse Ox 98.8 F 86 18 104/63 97 06/25/17 14:31 06/25/17 14:31 06/25/17 14:31 06/25/17 14:31 06/25/17 14:31 <HeidyKy - Last Filed: 06/25/17 16:12> - Vital Signs Last Vital Signs Temp Pulse Resp BP Pulse Ox 98.8 F 86 18 104/63 97 06/25/17 14:31 06/25/17 14:31 06/25/17 14:31 06/25/17 14:31 06/25/17 14:31 - Physical Exam Comments: 06/25/17 16:23 GENERAL: Awake, alert, and oriented x2 Disoriented to place. No acute distress HEAD: No signs of trauma EYES: PERRLA, EOMI, sclera anicteric, conjunctiva clear ENT: Auricles normal inspection, hearing grossly normal, nares patent, oropharynx clear without exudates. Moist mucosa NECK: Normal ROM, supple, no lymphadenopathy, JVD, or masses LUNGS: Breath sounds equal, clear to auscultation bilaterally. No wheezes, and no crackles HEART: Irregularly irregular. Normal S1 and S2, no murmurs, rubs or gallops ABDOMEN: Soft, nontender, normoactive bowel sounds. No guarding, no rebound. No masses EXTREMITIES: Normal range of motion, no edema. No clubbing or cyanosis. No cords, erythema, or tenderness NEUROLOGICAL: CN II-XII intact, 5/5 strength upper and lower extremities, Sensation intact throughout all extremities. SKIN: Warm, Dry, normal turgor, no rashes or lesions noted. <Danisha Keane - Last Filed: 06/25/17 16:22> - Vital Signs Last Vital Signs Temp Pulse Resp BP Pulse Ox 98.8 F 86 18 104/63 97 06/25/17 14:31 06/25/17 14:31 06/25/17 14:31 06/25/17 14:31 06/25/17 14:31 <Ann Lomas - Last Filed: 06/25/17 18:05> - Vital Signs Last Vital Signs Temp Pulse Resp BP Pulse Ox 98.8 F 86 18 104/63 97 06/25/17 14:31 06/25/17 14:31 06/25/17 14:31 06/25/17 14:31 06/25/17 14:31 <Jas Gustafsona Kyra - Last Filed: 06/25/17 18:40> Heart Score/ECG Review #1 ECG reviewed & interpreted by me at: 14:35 06/25/17 16:12 atrial fibrillation 77, no std/timothy, normal axis, QTC 414 msec <Ky Moody - Last Filed: 06/25/17 16:12> ED Treatment Course - LABORATORY CBC & Chemistry Diagram: 06/25/17 15:37 06/25/17 15:37 - RADIOLOGY Radiology Studies Ordered: Category Date Time Status HEAD CT WITHOUT CONTRAST [CT] Stat CT Scan 06/25/17 15:57 Ordered CHEST X-RAY PORTABLE* [RAD] Stat Radiology 06/25/17 15:25 Ordered <Ky Moody - Last Filed: 06/25/17 16:12> - LABORATORY CBC & Chemistry Diagram: 06/25/17 15:37 06/25/17 15:37 - ADDITIONAL ORDERS Additional order review: Laboratory Results 06/25/17 15:42 Urine Color Yellow Urine Appearance Slcloudy Urine pH 6.0 Urine Protein 1+ H Urine Glucose (UA) Negative Urine Ketones Negative Urine Blood 3+ H Urine Nitrite Negative Urine Bilirubin Negative Urine Urobilinogen Negative 06/25/17 15:37 RBC 3.63 L MCV 91.6 MCHC 34.2 RDW 13.8 MPV 8.6 D Neutrophils % 82.4 Lymphocytes % 7.3 L D Monocytes % 7.3 Eosinophils % 2.3 Basophils % 0.7 <Danisha Keane - Last Filed: 06/25/17 16:22> - LABORATORY CBC & Chemistry Diagram: 06/25/17 15:37 06/25/17 15:37 - ADDITIONAL ORDERS Additional order review: Laboratory Results 06/25/17 06/25/17 06/25/17 16:10 15:42 15:37 INR PTT (Actin FS) Sodium 137 Potassium 4.6 Chloride 101 Carbon Dioxide 27 Anion Gap 9 BUN 25 H D Creatinine 1.6 H Creat Clearance w eGFR 42.46 Random Glucose 111 H Calcium 9.3 Phosphorus 3.5 Magnesium 2.1 Total Bilirubin 0.6 D AST 16 ALT 22 D Alkaline Phosphatase 82 Creatine Kinase 17 L Troponin I < 0.02 Total Protein 6.2 L Albumin 2.5 L D TSH 2.67 D Urine Color Yellow Urine Appearance Slcloudy Urine pH 6.0 Urine Protein 1+ H Urine Glucose (UA) Negative Urine Ketones Negative Urine Blood 3+ H Urine Nitrite Negative Urine Bilirubin Negative Urine Urobilinogen Negative Digoxin 0.1569 L 06/25/17 15:37 INR 1.89 H D PTT (Actin FS) 32.6 Sodium Potassium Chloride Carbon Dioxide Anion Gap BUN Creatinine Creat Clearance w eGFR Random Glucose Calcium Phosphorus Magnesium Total Bilirubin AST ALT Alkaline Phosphatase Creatine Kinase Troponin I Total Protein Albumin TSH Urine Color Urine Appearance Urine pH Urine Protein Urine Glucose (UA) Urine Ketones Urine Blood Urine Nitrite Urine Bilirubin Urine Urobilinogen Digoxin 06/25/17 15:37 RBC 3.63 L MCV 91.6 MCHC 34.2 RDW 13.8 MPV 8.6 D Neutrophils % 82.4 Lymphocytes % 7.3 L D Monocytes % 7.3 Eosinophils % 2.3 Basophils % 0.7 <Ann Lomas - Last Filed: 06/25/17 18:05> - LABORATORY CBC & Chemistry Diagram: 06/25/17 15:37 06/25/17 15:37 - ADDITIONAL ORDERS Additional order review: Laboratory Results 06/25/17 06/25/17 06/25/17 16:10 15:42 15:37 INR PTT (Actin FS) Sodium 137 Potassium 4.6 Chloride 101 Carbon Dioxide 27 Anion Gap 9 BUN 25 H D Creatinine 1.6 H Creat Clearance w eGFR 42.46 Random Glucose 111 H Calcium 9.3 Phosphorus 3.5 Magnesium 2.1 Total Bilirubin 0.6 D AST 16 ALT 22 D Alkaline Phosphatase 82 Creatine Kinase 17 L Troponin I < 0.02 Total Protein 6.2 L Albumin 2.5 L D TSH 2.67 D Urine Color Yellow Urine Appearance Slcloudy Urine pH 6.0 Urine Protein 1+ H Urine Glucose (UA) Negative Urine Ketones Negative Urine Blood 3+ H Urine Nitrite Negative Urine Bilirubin Negative Urine Urobilinogen Negative Urine RBC 233 Urine WBC 128 Urine Bacteria Few Urine Mucus Rare Digoxin 0.1569 L 06/25/17 15:37 INR 1.89 H D PTT (Actin FS) 32.6 Sodium Potassium Chloride Carbon Dioxide Anion Gap BUN Creatinine Creat Clearance w eGFR Random Glucose Calcium Phosphorus Magnesium Total Bilirubin AST ALT Alkaline Phosphatase Creatine Kinase Troponin I Total Protein Albumin TSH Urine Color Urine Appearance Urine pH Urine Protein Urine Glucose (UA) Urine Ketones Urine Blood Urine Nitrite Urine Bilirubin Urine Urobilinogen Urine RBC Urine WBC Urine Bacteria Urine Mucus Digoxin 06/25/17 15:37 RBC 3.63 L MCV 91.6 MCHC 34.2 RDW 13.8 MPV 8.6 D Neutrophils % 82.4 Lymphocytes % 7.3 L D Monocytes % 7.3 Eosinophils % 2.3 Basophils % 0.7 <Maddy Gustafson - Last Filed: 06/25/17 18:40> Medical Decision Making - Medical Decision Making 06/25/17 16:08 A portion of this note was documented by scribe services under my direction. I have reviewed the details of the note, within reason, and agree with the documentation with the following case summary and management plan written by me. Patient treated in the ED. Nursing notes are reviewed and incorporated into the medical decision-making. Vital signs reviewed. Peripheral IV access obtained by the nurse, laboratory studies are drawn and sent, reviewed and interpreted by myself. Vital Signs Temp Pulse Resp BP Pulse Ox 98.8 F 86 18 104/63 97 06/25/17 14:31 06/25/17 14:31 06/25/17 14:31 06/25/17 14:31 06/25/17 14:31 76 year old male with hx of atrial fibrillation, HTN, chronic afib, emphysema, diverticulitis, HLD, DM, HTN p/w consfusion. The patient had similar presentation several weeks ago was admitted for acute renal failure and was emergently dialyzed. During that stay, the patient had a CAT scan of the abdomen pelvis which demonstrate a pelvic mass. A biopsy was performed which demonstrated prostate cancer. Was also noted bilateral hydronephrosis and urology had placed bilateral stents. During that time, patient had digoxin toxicity and the patient noted with supratherapeutic INR. You put your the patient was then noted this week to have 3 separate falls as well as increasing confusion and hallucinations and orthostatic hypotension. Given the circumstances, differential includes neurologic, such as metastases, intracranial hemorrhage secondary to fall, metabolic disarray including acute renal failure, hyperkalemia, urinary tract infection. Patient is likely will need admission. <Ky Moody - Last Filed: 06/25/17 16:12> - Medical Decision Making 06/25/17 16:58 Dr. Castro was paged via phone answering service at this time. I have been informed that TRUDY Nieto is covering for Dr. Castro this afternoon and will return the call at her earliest convenience. <Ann Lomas - Last Filed: 06/25/17 18:05> *DC/Admit/Observation/Transfer <Ky Moody - Last Filed: 06/25/17 16:12> - Attestations Scribe Attestion: 06/25/17 16:23 Documentation prepared by Danisha Keane, acting as medical delivery driver for Ky Moody MD <Danisha Keane - Last Filed: 06/25/17 16:22> - Attestations Scribe Attestion: 06/25/17 18:06 Documentation prepared by Ann Lomas, acting as medical delivery driver for Ky Moody MD, <Ann Lomas - Last Filed: 06/25/17 18:05> - Discharge Dispostion Admit: Yes <Maddy Gustafson - Last Filed: 06/25/17 18:40> Diagnosis at time of Disposition: Prostate cancer, Confusion, Generalized weakness - Referrals Referrals: Maye Castro MD [Primary Care Provider] -
[2017-06-25 16:13] LABS: URINE APPEARANCE SLCLOUDY; URINE BILIRUBIN NEGATIVE (NEGATIVE); URINE BLOOD 3+ (NEGATIVE); URINE COLOR YELLOW; URINE GLUCOSE (UA) NEGATIVE (NEGATIVE); URINE KETONE NEGATIVE (NEGATIVE); URINE NITRITE NEGATIVE (NEGATIVE); URINE UROBILINOGEN NEGATIVE mg/dL (0.2-1.0)
[2017-06-25 16:14] LABS: URINE PROTEIN 1+ (NEGATIVE)
[2017-06-25 16:32] LABS: INR 1.89 (0.82-1.09); PROTHROMBIN TIME (PATIENT) 21.1 SEC (9.98-11.88)
[2017-06-25 16:33] LABS: ALBUMIN 2.5 g/dl (3.4-5.0); ANION GAP 9 (8-16); BILIRUBIN,TOTAL 0.6 mg/dL (0.2-1.0); CALCIUM 9.3 mg/dL (8.5-10.1); CO2 27 mmol/L (21-32); CREATININE 1.6 mg/dL (0.7-1.3); GLUCOSE,RANDOM 111 mg/dL (74-106); MAGNESIUM 2.1 mg/dL (1.8-2.4); PHOSPHOROUS 3.5 mg/dL (2.5-4.9); SGOT/AST 16 U/L (15-37); SGPT/ALT 22 U/L (12-78); TOT PROT 6.2 g/dl (6.4-8.2)
[2017-06-25 16:35] LABS: ACTIVATED PTT 32.6 SECONDS (26.9-34.4)
[2017-06-25 16:41] LABS: ALK PHOS 82 U/L (45-117); CPK 17 IU/L (39-308); THYROID STIMULATING HORMONE 2.67 uIU/ml (0.358-3.74); TROPONIN I < 0.02 ng/ml (0.00-0.05)
[2017-06-25 17:40] LABS: URINE BACTERIA FEW /hpf (NONE SEEN); URINE MUCUS RARE; URINE RBC 233 /hpf (0-3); URINE WBC 128 /hpf (3-5)
[2017-06-25] MEDS ORDERED: LEVOFLOXACIN 500 MG IVPB 100 ML IVPB ONE ×2 (18:14→18:39)
[2017-06-25] MEDS ORDERED: ACETAMINOPHEN 325 MG TABLET (FP) PO PRN ×2 (18:17→18:23)
[2017-06-25] MEDS ORDERED: SODIUM CHLORIDE 500 ML IV STA (18:19)
[2017-06-25] MEDS ORDERED: PT OWN MED DRAWER 7, Y5N ONE (21:48)
[2017-06-25] MEDS: APIXABAN 5 MG TABLET PO SCH (22:03)
--- NOTE | 2017-06-26 07:22 | PN ---
Progress Note (short form) - Note Progress Note: ID Full note dictated Arousable Alert but confused Selected Entries 06/26/17 06:00 Temperature 97.4 F L Pulse Rate 81 Respiratory 20 Rate Blood Pressure 141/85 Microbiology Laboratory Tests 06/25/17 06/25/17 06/25/17 15:37 15:37 15:42 WBC 15.6 H Hgb 11.4 L Plt Count 290 D BUN 25 H D Total Bilirubin 0.6 D AST 16 ALT 22 D Creatine Kinase 17 L Urine RBC 233 Urine WBC [address] NEG Assessment Metabolic encephalopathy with contributing factor UTI Recent surgery with stents May Prostate CA Plan Ceftriaxone pending cultures No fever not sepsis Karen ELIZABETH Problem List - Problems (1) Confusion Code(s): R41.0 - DISORIENTATION, UNSPECIFIED (2) Prostate cancer Code(s): C61 - MALIGNANT NEOPLASM OF PROSTATE (3) UTI (urinary tract infection) Code(s): N39.0 - URINARY TRACT INFECTION, SITE NOT SPECIFIED
[2017-06-26 08:05] LABS: MCH 31.3 pg (25.7-33.7); MCHC 34.1 g/dl (32.0-35.9); MEAN CELL VOLUME 91.6 fl (80-96); MEAN PLT VOLUME 8.2 fl (7.5-11.1); PLATELET COUNT 295 K/MM3 (134-434); RDW 13.5 % (11.9-15.9); WHITE BLOOD COUNT 13.9 K/mm3 (4.0-10.0)
[2017-06-26 08:23] LABS: ALBUMIN 2.5 g/dl (3.4-5.0); ANION GAP 7 (8-16); CALCIUM 9.3 mg/dL (8.5-10.1); CO2 30 mmol/L (21-32); CREATININE 1.5 mg/dL (0.7-1.3); GLUCOSE,RANDOM 96 mg/dL (74-106); SGOT/AST 14 U/L (15-37); SGPT/ALT 22 U/L (12-78)
[2017-06-26 08:28] LABS: ALK PHOS 82 U/L (45-117); BILIRUBIN,TOTAL 0.7 mg/dL (0.2-1.0); TOT PROT 6.1 g/dl (6.4-8.2); TROPONIN I < 0.02 ng/ml (0.00-0.05)
--- NOTE | 2017-06-26 09:15 | CONS ---
DATE OF CONSULTATION: DATE OF DICTATION: 06/26/2017 HISTORY OF PRESENT ILLNESS: This is a 76-year-old male with recent diagnosis of prostate cancer who presents to the emergency room with chief complaint of confusion and altered mental status. Upon arrival in the ER, he was alert, but noted to be confused and unaware of his surroundings. As per the nursing staff notes in the shelter where he resides, he was noted to have orthostatic hypotension with three falls in the preceding week along with hallucinations. He had no fever, and his vital signs documented from the shelter included a blood pressure of 132/73, pulse 86, respirations 20, and no fever. He has a history of atrial fibrillation, svx-zxzzecm-qahuqhxwg diabetes, diverticulitis, hypertension, and recent prostate cancer diagnosed in May after he was hospitalized with acute renal failure necessitating emergent dialysis. He was seen in consultation by Dr. Terri Rico, and on May 27, underwent an operative procedure with postoperative diagnosis of bilateral ureteral obstruction with an extravesical mass. A cystourethroscopy was performed with bilateral retrograde pyelograms and bilateral JJ stenting. A bladder biopsy and bladder fulguration was performed. Surgical pathology note dated May [address] Whitlock indicated adenocarcinoma of the prostate. The patients renal failure did improve to the point where he no longer necessitated dialysis. He has been in a shelter, and on admission, was noted to have elevated white count of 16,000 with white cells in his urine analysis for which he was given a dose of levofloxacin. His chart documents an unknown allergy to AUGMENTIN. PAST MEDICAL HISTORY: As noted above. CURRENT MEDICATIONS: Include Eliquis, Cardizem. ALLERGIES: As noted. SOCIAL HISTORY: A shelter resident. An every-day smoker for many years. No history of alcohol or drug use. HIV status unknown. FAMILY HISTORY: Unobtainable from patient. REVIEW OF SYSTEMS: Respiratory: No cough, shortness of breath or hemoptysis. Cardiac: History of atrial fibrillation. No chest pain, palpitations. Recent falls as noted. Gastrointestinal: No abdominal pain, vomiting, hematemesis, blood per rectum. Genitourinary: Status post renal failure for obstructive uropathy with placement of JJ stents. Neuromuscular: Hallucinations with recent confusion. No headaches, visual complaints. PHYSICAL EXAMINATION: General: He was a sliv-nwfcmmxjl-vbtcvfbra male, arousable, but confused. Vital signs: His temperature was 97.4, pulse 81, blood pressure 140/80, respirations 20. Neck: Supple, without adenopathy. Lungs: Clear to percussion auscultation. Heart: Irregularly irregular S1, S2. No murmur, rub, or gallop. Abdomen: Positive bowel sounds. Soft, nontender. No guarding or rebound. No masses. Extremities: No clubbing, cyanosis, or edema. LABORATORY DATA: Urinalysis with 230 red cells, 128 white cells, few bacteria. The white count 15.6, hemoglobin 11.4, platelets 290. BUN 25, creatinine 1.6. ASSESSMENT: This is a 76-year-old male with a recent diagnosis of prostate cancer, status post postobstructive renal failure necessitating recent dialysis in May, who presents now with altered mental status consisting of confusion and hallucinations. CT scan of the head shows no acute pathology. Possible consider toxic metabolic encephalopathy with contributing factor of urinary tract infection. PLAN: 1. Blood cultures. 2. Urine culture. 3. Empiric therapy with ceftriaxone 1 g IV q.24 hours pending cultures. Consider neurology consultation for further evaluation of mental status change. TATYANA ROCHA M.D. [id number]
[2017-06-26] MEDS ORDERED: DEXTROSE 5%-WATER - 50 ML IVPB ONE (10:05)
[2017-06-26] MEDS ORDERED: cefTRIAXone SODIUM 1 GM VIAL ONE (10:05)
[2017-06-26] MEDS: NICOTINE 14 MG/24 HOURS TOPICAL PATCH TD SCH (10:18)
[2017-06-26] MEDS: CEFTRIAXONE 1 GM in DEXTROSE 5%-WATER - 50 ML IVPB SCH (10:18)
[2017-06-26] MEDS: ARTIFICIAL TEARS (POLYVINYL ALCOHOL 1.4%) OPTH DROPS OU PRN (10:19)
[2017-06-26] MEDS: PANTOPRAZOLE 40 MG TABLET (FP) PO SCH (10:19)
[2017-06-26] MEDS: APIXABAN 5 MG TABLET PO SCH ×2 (10:19→21:33)
[2017-06-26 10:21] LABS: BASOPHIL (MANUAL) 1 % (0-2.0); TOTAL CELLS COUNTED 100
[2017-06-26] MEDS: POLYETHYLENE GLYCOL 3350 119 GM BTL PO SCH (10:21)
--- NOTE | 2017-06-26 10:44 | EKG ---
Test Reason : Blood Pressure : / mmHG Vent. Rate : 077 BPM Atrial Rate : 057 BPM P-R Int : 000 ms QRS Dur : 092 ms QT Int : 366 ms P-R-T Axes : 000 -10 030 degrees QTc Int : 414 ms ATRIAL FIBRILLATION ABNORMAL ECG WHEN COMPARED WITH ECG OF 17-MAY-2017 20:36, QT HAS LENGTHENED Confirmed by JUAN PABLO QUINTANILLA MD ([id number]) on 06/26/2017 10:44:18 AM Referred By: Confirmed By:JUAN PABLO QUINTANILLA MD
--- NOTE | 2017-06-26 15:10 | HP ---
Admitting History and Physical - Primary Care Physician PCP: Maye Castro - Admission Chief Complaint: Altered mental status History of Present Illness: Mr. Shafer, a pleasently confused 76 year old male came in through [facility] from [facility] for gradual increase in altered mental status. Patient was recently hospitalized for acute renal failure and diagnosed with Prostate adenocarcinoma, is currently on Chemotherapy. As per CLIENT RELATIONSHIP EXECUTIVE notes from [facility], patient had fallen 3 x in past 1 week, had hallucinations and orthostatic hypotension. Upon evaluation, his CXR and CT head was negative for any acute finding. However , labs indicated leukocytosis with +3 blood in his urine with negative nitrites. He has no fever, chills, fatigue, dysuria or polyuria. On his last admission, patient had typical symptoms of acute delirium with fluctuating attention, memory and agitation. He was evaluated by Neurology with no acute diagnosis but delerium secondary to general medical condition. History Source: Patient, Family Member, Transfer Record Limitations to Obtaining History: No Limitations - Past Medical History MANAGEMENT AND BUDGET ANALYST: No: Alzheimer's, CVA, Dementia, Migraine, Multiple Sclerosis, Peripheral Neuropathy, Parkinson's, Seizure, Syncope, TIA, Vertigo, Other Cardiovascular: Yes: AFIB, Aneurysm, Aortic Insufficiency, Aortic Stenosis, CAD , CHF, Deep Vein Thrombosis, HTN, Hyperlipdemia, PA, Mitral Insufficiency, Mitral Stenosis, Murmur, Pulmonary Hypertension, Other Pulmonary: No: Asthma, Bronchitis, Cancer, COPD, O2 Dependent, Pneumonia, Previously Intubated, Pulmonary Embolus, Pulmonary Fibrosis, Sleep Apnea, Other Gastrointestinal: No: Ascites, Cancer, Constipation, Crohn's Disease, Diverticulitis, Diverticulosis, Esophageal Varices, Gastritis, GERD, GI Bleed, Hemorrhoids, Hiatal Hernia, Inflamatory Bowel Disease, Irritable Bowel Disease, Pancreatitis, Peptic Ulcer Disease, Ulcerative Colitis, Other Hepatobiliary: Yes: Cirrhosis, Cholelithiasis, Cholecystitis, Choledocholithiasis, Hepatitis A, Hepatitis B, Hepatitis C, Other Renal/: Yes: Renal Failure, Renal Inusuff, BPH, Cancer, Hematuria, Hemodialysis, Neurogenic Bladder, Renal Calculi, UTI, Other Endocrine: Yes: Diabetes Mellitus. 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, 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 Travel: No Home Medications - Allergies Allergies/Adverse Reactions: Allergies Allergy/AdvReac Type Severity Reaction Status Date / Time amoxicillin trihydrate Allergy Mild Verified 06/25/17 14:33 [From Augmentin] potassium clavulanate AdvReac Unknown Verified 06/25/17 14:33 [From Augmentin] - Home Medications Home Medications: Ambulatory Orders Apixaban [Eliquis -] 5 mg PO BID tablet 06/12/17 Bicalutamide [Casodex -] 50 mg PO DAILY tablet 06/12/17 Nicotine Patch [Nicoderm Patch -] 14 mg TD DAILY patch 06/12/17 Pantoprazole Sodium [Protonix -] 40 mg PO DAILY tab 06/12/17 Polyethylene Glycol 3350 [Miralax 119 gm Btl -] 17 gm PO DAILY bottle 06/12/17 Polyvinyl Alcohol [Artificial Tears] 1 drop OU BID PRN #0 ml 06/12/17 Acetaminophen [Tylenol] 650 mg PO QID PRN 06/25/17 Diltiazem HCl [Cardizem LA] 240 mg PO DAILY 06/25/17 Levofloxacin [Levaquin] 500 mg PO DAILY 06/25/17 Review of Systems Unable to obtain ROS, reason: confusion Physical Examination Vital Signs: Vital Signs Temperature 97.7 F 06/26/17 14:24 Pulse Rate 95 H 06/26/17 14:24 Respiratory Rate 20 06/26/17 14:24 Blood Pressure 113/61 06/26/17 14:24 O2 Sat by Pulse Oximetry (%) 99 06/25/17 21:00 Constitutional: Yes: Well Nourished, No Distress, Calm Cardiovascular: Yes: Regular Rate and Rhythm, Murmur (grade III/) Respiratory: Yes: Regular Gastrointestinal: Yes: Normal Bowel Sounds, Soft Musculoskeletal: Yes: Muscle Weakness Extremities: Yes: WNL Edema: No Peripheral Pulses WNL: Yes Neurological: Yes: Alert, Confusion Psychiatric: Yes: Alert Labs: CBC, BMP 06/26/17 06:00 06/26/17 06:00 Imaging - Results Chest X-ray: Report Reviewed Cat Scan: Report Reviewed Problem List - Problems (1) Generalized weakness Code(s): R53.1 - WEAKNESS (2) UTI (urinary tract infection) Code(s): N39.0 - URINARY TRACT INFECTION, SITE NOT SPECIFIED (3) Adenocarcinoma of prostate Code(s): C61 - MALIGNANT NEOPLASM OF PROSTATE (4) Delirium Code(s): R41.0 - DISORIENTATION, UNSPECIFIED (5) Orthostatic hypotension Code(s): I95.1 - ORTHOSTATIC HYPOTENSION (6) Atrial fibrillation with RVR Code(s): I48.91 - UNSPECIFIED ATRIAL FIBRILLATION Assessment/Plan -IV abx -BC pending -CT head and CXR negative -ID consult -neurology, nephrology consult -Would get Psychiatry consult as well -Cardiology consult for evaluation of orthostatic hypotension, midodrine? -Compression stockings -spoke to daughter at bedside -Physical therapy -AC for afib -GI prophylaxis
[2017-06-26] MEDS ORDERED: PT OWN MED DRAWER 7, Y5N ONE ×2 (15:59→20:44)
--- NOTE | 2017-06-26 20:04 | CONSULT ---
Consult - text type - Consultation Consultation Note: NEUROLOGY CONSULTATION is greatly appreciated: This 76 yo RH man with h/o DM, HTN, A Fib, COPD and prostatic cancer was recently admitted from home with acute renal failure. Transferred to [place] on cardizem, apixaban, casodex, nicoderm, protonix, and levaquin. Now admitted with increased confusion, hallucinations, deterioration of gait, and falls. CT of Head (reviewed): reveals moderate, diffuse atrophy. Labs sig for Moderate RI. WBC=15.6 and urinary PEE=895. Now on ceftriaxone. JEMIMA: Neck supple. No bruits. Cor irreg/irreg. In diaper. NEURO: Cooperative but confused. Claims he lives with his . Ox Jun, 2017 but not [facility]. President Og. Recalls 0 of 3 @ 3. + Glabella, snout. Speech sparse, confused, but fluent. CN: Masked facies and [place]. Gag OK Motor: No tremor. Minimal cogwheeling. Normal strength. Absent AJ's. Toes downgoing Coord: No obvious FTN dystaxia Sensory: Decreased vib in toes. Gait: Requires assist to stand with spontaneous retropulsion. IMP: Moderately severe, B/L cerebral dysfunction (OMS/chronic features). Probably Alzheimer's disease. Mild extrapyramidal features. Senile gait dysfunction All worsened by Toxic-metabolic encephalopathy (UTI/Urosepsis). SUGGEST: Continue Antibiotics and hydration. Check B12, B1, RPR. TSH is normal. Begin donepezil 5 mg q AM OO Bed to chair for meals. 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 Thank you very much, Garrison Rea MD
[2017-06-27] MEDS ORDERED: cefTRIAXone SODIUM 1 GM VIAL ONE (09:21)
[2017-06-27] MEDS ORDERED: DEXTROSE 5%-WATER - 50 ML IVPB ONE (09:21)
[2017-06-27] MEDS ORDERED: PT OWN MED DRAWER 7, Y5N ONE (09:21)
[2017-06-27] MEDS: NICOTINE 14 MG/24 HOURS TOPICAL PATCH TD SCH (09:23)
[2017-06-27] MEDS: PANTOPRAZOLE 40 MG TABLET (FP) PO SCH (09:23)
[2017-06-27] MEDS: CEFTRIAXONE 1 GM in DEXTROSE 5%-WATER - 50 ML IVPB SCH (09:23)
[2017-06-27] MEDS: APIXABAN 5 MG TABLET PO SCH ×2 (09:24→21:55)
[2017-06-27] MEDS: BICALUTAMIDE 50 MG TABLET (FP) PO SCH (09:24)
[2017-06-27] MEDS: POLYETHYLENE GLYCOL 3350 119 GM BTL PO SCH (09:24)
[2017-06-27] MEDS: DONEPEZIL HCL 5 MG TABLET (FP) PO SCH (09:26)
--- NOTE | 2017-06-27 10:13 | PN ---
Progress Note (short form) - Note Progress Note: ID Ceftriaxone Looks comfortable Selected Entries 06/27/17 06:00 Temperature 98.4 F Pulse Rate 90 Respiratory 18 Rate Blood Pressure 146/95 Microbiology 06/25/17 15:37 Urine - Urine Clean Catch Urine Culture - Final NO GROWTH OBTAINED 06/25/17 18:30 Blood - Peripheral Venous Blood Culture - Preliminary NO GROWTH OBTAINED AFTER 24 HOURS, INCUBATION TO CONTINUE FOR 4 DAYS. 06/25/17 18:30 Blood - Peripheral Venous Blood Culture - Preliminary NO GROWTH OBTAINED AFTER 24 HOURS, INCUBATION TO CONTINUE FOR 4 DAYS. Laboratory Tests 06/25/17 06/25/17 06/26/17 15:37 15:42 06:00 WBC 15.6 H 13.9 H Hgb 11.7 Hct 34.2 L Plt Count 295 BUN Creatinine Creat Clearance w eGFR Urine RBC 233 Urine WBC 128 06/26/17 06:00 WBC Hgb Hct Plt Count BUN 23 H Creatinine 1.5 H Creat Clearance w eGFR 45.75 Urine RBC Urine WBC Assessment Urinary infection ( culture neg) Metabolic encephalopathy Plan IV antibiotic today perhaps po tomorrow Karen ELIZABETH Problem List - Problems (1) Confusion Code(s): R41.0 - DISORIENTATION, UNSPECIFIED (2) Prostate cancer Code(s): C61 - MALIGNANT NEOPLASM OF PROSTATE (3) UTI (urinary tract infection) Code(s): N39.0 - URINARY TRACT INFECTION, SITE NOT SPECIFIED
--- NOTE | 2017-06-27 11:28 | PN ---
Progress Note, Physician Chief Complaint: patient seen and examined today alert knows his name and more oriented today as well on iv antibiotic no fever - Current Medication List Current Medications: Active Medications Acetaminophen (Tylenol -) 650 mg PO Q6H PRN PRN Reason: PAIN Last Admin: 06/27/17 06:04 Dose: 650 mg Apixaban (Eliquis -) 5 mg PO BID [facility] Last Admin: 06/27/17 09:24 Dose: 5 mg Artificial Tears (Artificial Tears) 1 drop OU BID PRN PRN Reason: DRY EYES Last Admin: 06/26/17 10:19 Dose: 1 drop Bicalutamide (Casodex -) 50 mg PO DAILY [facility] Last Admin: 06/27/17 09:24 Dose: 50 mg Diltiazem HCl (Cardizem Cd -) 240 mg PO DAILY [facility] Last Admin: 06/27/17 09:23 Dose: 240 mg Donepezil HCl (Aricept -) 5 mg PO DAILY [facility] Last Admin: 06/27/17 09:26 Dose: 5 mg Ceftriaxone Sodium 1 gm/ (Dextrose) 50 mls @ 100 mls/hr IVPB DAILY [facility] Last Admin: 06/27/17 09:23 Dose: 100 mls/hr Nicotine (Nicoderm Patch -) 14 mg TD DAILY [facility] Last Admin: 06/27/17 09:23 Dose: 14 mg Pantoprazole Sodium (Protonix -) 40 mg PO DAILY [facility] Last Admin: 06/27/17 09:23 Dose: 40 mg Polyethylene Glycol (Miralax (For Daily Use) -) 17 gm PO DAILY [facility] Last Admin: 06/27/17 09:24 Dose: 17 gm - Objective Vital Signs: Vital Signs Temperature 97.5 F L 06/27/17 10:00 Pulse Rate 92 H 06/27/17 10:00 Respiratory Rate 18 06/27/17 10:00 Blood Pressure 117/54 06/27/17 10:00 O2 Sat by Pulse Oximetry (%) 95 06/27/17 09:00 Constitutional: Yes: Calm, Thin Neck: Yes: Trachea Midline Cardiovascular: Yes: Regular Rate and Rhythm, S1, S2 Respiratory: Yes: CTA Bilaterally, Diminished (at bases) Gastrointestinal: Yes: Normal Bowel Sounds, Soft Edema: No Labs: CBC, BMP 06/26/17 06:00 06/26/17 06:00 INR, PTT INR 1.89 (0.82-1.09) H D 06/25/17 15:37 Assessment/Plan 1.change in mental status/ toxic metabolic encephalopathy sec to uti on iv abx mental status is improving wbc high but trending down no fever ID on board 2.prostate cancer on casodex will have heme see patient 3.h/o hydropnephrosis s/p stent placement;- urology to see patient 4.s/p fall with orthostatic hypotension:cardio evaluation 5.smoker on nicotine patch 6.Afib on cardizem and eliquis 7.neuro; possible alzhemier dementia / starrted on donazepil 5mg
[2017-06-27] MEDS ORDERED: SODIUM CHLORIDE 1,000 ML IV SCH (11:30)
--- NOTE | 2017-06-27 11:30 | CONSULT ---
Consultation: REQUESTING PROVIDER: Armida CONSULT: NEPHROLOGY CONSULT REQUEST: We have been asked to medically evaluate this patient for SILAS. HISTORY OF PRESENT ILLNESS: 76 yr old man with HTN, recently diagnosed prostate cancer on casodex, referred from [facility] due to AMS and recent frequent falls. Patient is alert, awake, oriented to person, year, place, initially referred to daughter as his , recalls her name correctly. says he was supposed to hand picker his this morning in [place] ( >10yrs ago). says he was brought to a trailer in front of the hospital from his house. Recalls not feeling like himself yesterday evening, denies fever, dysuria, frequency, pain, sob, cough. As per daughter at bedside he has not been eating or drinking well at the group home. Pmhx: NIDDM, COPD, Afib on ac, dementia Soc: former smoker, currently on nicodrem patch REVIEW OF SYSTEMS: CONSTITUTIONAL: Absent: fever, chills, diaphoresis, generalized weakness, malaise, loss of appetite, weight change HEENT: Absent: rhinorrhea, nasal congestion, throat pain, throat swelling, difficulty swallowing, mouth swelling, ear pain, eye pain, visual changes CARDIOVASCULAR: Absent: chest pain, syncope, palpitations, irregular heart rate, lightheadedness , peripheral edema RESPIRATORY: Absent: cough, shortness of breath, dyspnea with exertion, orthopnea, wheezing, stridor, hemoptysis GASTROINTESTINAL: Absent: abdominal pain, abdominal distension, nausea, vomiting, diarrhea, constipation, melena, hematochezia GENITOURINARY: Absent: dysuria, frequency, urgency, hesitancy, hematuria, flank pain, genital pain MUSCULOSKELETAL: Absent: myalgia, arthralgia, joint swelling, back pain, neck pain SKIN: Absent: rash, itching, pallor HEMATOLOGIC/IMMUNOLOGIC: Absent: easy bleeding, easy bruising, lymphadenopathy, frequent infections ENDOCRINE: Absent: unexplained weight gain, unexplained weight loss, heat intolerance, cold intolerance NEUROLOGIC: Present: unsteady gait,mental status changes Absent: headache, focal weakness or paresthesias, dizziness, seizure, , bladder or bowel incontinence PHYSICAL EXAMINATION Vital Signs - 24 hr 06/26/17 06/26/17 06/26/17 14:24 18:27 21:00 Temperature 97.7 F 97.8 F Pulse Rate 95 H 94 H Respiratory 20 18 Rate Blood Pressure 113/61 131/74 O2 Sat by Pulse 96 Oximetry (%) 06/26/17 06/27/17 06/27/17 22:00 02:00 06:00 Temperature 98.2 F 98.5 F 98.4 F Pulse Rate 93 H 89 90 Respiratory 20 18 18 Rate Blood Pressure 159/72 145/79 146/95 O2 Sat by Pulse Oximetry (%) 06/27/17 06/27/17 09:00 10:00 Temperature 97.5 F L Pulse Rate 92 H Respiratory 18 Rate Blood Pressure 117/54 O2 Sat by Pulse 95 Oximetry (%) GENERAL: Awake, alert, and oriented to person, place, yr , in no acute distress. HEAD: Normal with no signs of trauma. EYES: Pupils equal, round and reactive to light, extraocular movements intact, sclera anicteric, conjunctiva clear. No lid lag. EARS, NOSE, THROAT: oropharynx clear without exudates. dry mucous membranes. NECK: Normal range of motion, supple without lymphadenopathy, JVD, or masses. LUNGS: Breath sounds equal, clear to auscultation bilaterally. No wheezes, and no crackles. No accessory muscle use. HEART: afib, normal S1 and S2 without murmur, rub or gallop. ABDOMEN: Soft, nontender, not distended, normoactive bowel sounds, no guarding, no rebound, no masses. No hepatomegaly or splenomegaly. MUSCULOSKELETAL: Normal range of motion at all joints. No bony deformities or tenderness. No CVA tenderness. UPPER EXTREMITIES: 2+ radial pulses, warm, well-perfused. No peripheral edema. LOWER EXTREMITIES: 2+ dp pulses, warm, well-perfused. No calf tenderness. No peripheral edema. NEUROLOGICAL: Cranial nerves II-XII intact. Normal speech. facial symmetry PSYCHIATRIC: Cooperative. Good eye contact. Appropriate mood and affect. SKIN: Warm, dry, normal turgor, no rashes or lesions noted. Laboratory Results - last 24 hr 06/27/17 06:00 Vitamin B12 1902 H D Laboratory Last Values WBC 13.9 K/mm3 (4.0-10.0) H 06/26/17 06:00 RBC 3.73 M/mm3 (4.00-5.60) L 06/26/17 06:00 Hgb 11.7 GM/dL (11.7-16.9) 06/26/17 06:00 Hct 34.2 % (35.4-49) L 06/26/17 06:00 MCV 91.6 fl (80-96) 06/26/17 06:00 MCH 31.3 pg (25.7-33.7) 06/26/17 06:00 MCHC 34.1 g/dl (32.0-35.9) 06/26/17 06:00 RDW 13.5 % (11.9-15.9) 06/26/17 06:00 Plt Count 295 K/MM3 (134-434) 06/26/17 06:00 MPV 8.2 fl (7.5-11.1) 06/26/17 06:00 Total Counted 100 06/26/17 06:00 Neutrophils % Y 06/26/17 06:00 Neutrophils % (Manual) 77 % (42.8-82.8) 06/26/17 06:00 Lymphocytes % Y 06/26/17 06:00 Lymphocytes % (Manual) 11 % (8-40) 06/26/17 06:00 Monocytes % 7.3 % (3.8-10.2) 06/25/17 15:37 Monocytes % (Manual) 7 % (3.8-10.2) 06/26/17 06:00 Eosinophils % 2.3 % (0-4.5) 06/25/17 15:37 Eosinophils % (Manual) 4 % (0-4.5) 06/26/17 06:00 Basophils % 0.7 % (0-2.0) 06/25/17 15:37 Basophils % (Manual) 1 % (0-2.0) 06/26/17 06:00 INR 1.89 (0.82-1.09) H D 06/25/17 15:37 PTT (Actin FS) 32.6 SECONDS (26.9-34.4) 06/25/17 15:37 Sodium 138 mmol/L (136-145) 06/26/17 06:00 Potassium 4.4 mmol/L (3.5-5.1) 06/26/17 06:00 Chloride 101 mmol/L (98-107) 06/26/17 06:00 Carbon Dioxide 30 mmol/L (21-32) 06/26/17 06:00 Anion Gap 7 (8-16) L 06/26/17 06:00 BUN 23 mg/dL (7-18) H 06/26/17 06:00 Creatinine 1.5 mg/dL (0.7-1.3) H 06/26/17 06:00 Creat Clearance w eGFR 45.75 (>60) 06/26/17 06:00 Random Glucose 96 mg/dL (74-106) 06/26/17 06:00 Calcium 9.3 mg/dL (8.5-10.1) 06/26/17 06:00 Phosphorus 3.5 mg/dL (2.5-4.9) 06/25/17 15:37 Magnesium 2.1 mg/dL (1.8-2.4) 06/25/17 15:37 Total Bilirubin 0.7 mg/dL (0.2-1.0) 06/26/17 06:00 AST 14 U/L (15-37) L 06/26/17 06:00 ALT 22 U/L (12-78) 06/26/17 06:00 Alkaline Phosphatase 82 U/L (45-117) 06/26/17 06:00 Creatine Kinase 17 IU/L (39-308) L 06/25/17 15:37 Troponin I < 0.02 ng/ml (0.00-0.05) 06/26/17 06:00 Total Protein 6.1 g/dl (6.4-8.2) L 06/26/17 06:00 Albumin 2.5 g/dl (3.4-5.0) L 06/26/17 06:00 Vitamin B12 1902 pg/ml (180-914) H D 06/27/17 06:00 TSH 2.67 uIU/ml (0.358-3.74) D 06/25/17 15:37 Urine Color Yellow 06/25/17 15:42 Urine Appearance Slcloudy 06/25/17 15:42 Urine pH 6.0 (5.0-8.0) 06/25/17 15:42 Ur Specific [place] 1.010 (1.005-1.025) 06/25/17 15:42 Urine Protein 1+ (NEGATIVE) H 06/25/17 15:42 Urine Glucose (UA) Negative (NEGATIVE) 06/25/17 15:42 Urine Ketones Negative (NEGATIVE) 06/25/17 15:42 Urine Blood 3+ (NEGATIVE) H 06/25/17 15:42 Urine Nitrite Negative (NEGATIVE) 06/25/17 15:42 Urine Bilirubin Negative (NEGATIVE) 06/25/17 15:42 Urine Urobilinogen Negative mg/dL (0.2-1.0) 06/25/17 15:42 Urine RBC 233 /hpf (0-3) 06/25/17 15:42 Urine WBC 128 /hpf (3-5) 06/25/17 15:42 Urine Bacteria Few /hpf (NONE SEEN) 06/25/17 15:42 Urine Mucus Rare 06/25/17 15:42 Digoxin 0.1569 ng/ml (0.8-2.0) L 06/25/17 16:10 Active Medications Generic Name Dose Route Start Last Admin Trade Name Freq PRN Reason Stop Dose Admin Acetaminophen 650 mg 06/25/17 18:23 06/27/17 06:04 Tylenol - PO 650 mg Q6H PRN Administration PAIN Apixaban 5 mg 06/25/17 22:00 06/27/17 09:24 Eliquis - PO 5 mg BID [facility] Administration Artificial Tears 1 drop 06/25/17 18:17 06/26/17 10:19 Artificial Tears OU 1 drop BID PRN Administration DRY EYES Bicalutamide 50 mg 06/26/17 10:00 06/27/17 09:24 Casodex - PO 50 mg DAILY [facility] Administration Diltiazem HCl 240 mg 06/26/17 10:00 06/27/17 09:23 Cardizem Cd - PO 240 mg DAILY [facility] Administration Donepezil HCl 5 mg 06/27/17 10:00 06/27/17 09:26 Aricept - PO 5 mg DAILY [facility] Administration Ceftriaxone Sodium 1 gm/ 50 mls @ 100 mls/hr 06/26/17 10:00 06/27/17 09:23 Dextrose IVPB 100 mls/hr DAILY [facility] Administration Nicotine 14 mg 06/26/17 10:00 06/27/17 09:23 Nicoderm Patch - TD 14 mg DAILY [facility] Administration Pantoprazole Sodium 40 mg 06/26/17 10:00 06/27/17 09:23 Protonix - PO 40 mg DAILY [facility] Administration Polyethylene Glycol 17 gm 06/26/17 10:00 06/27/17 09:24 Miralax (For Daily Use) - PO 17 gm DAILY [facility] Administration ASSESSMENT/PLAN: 76 yr old man with recently diagnosed prostate cancer on casodex, AMS, afib on ac, admitted for AMS and SILAS being treated for UTI. #SILAS on CKD stage 3- Cr improved since yesterday, likely prerenal cause from poor po intake in setting of infection - IVF NS @75cc/hr, encourage po - unlikely that urine studies would be accurate given rbc's and wbc'c and with improvement of Cr will defer imaging studies for now, to be considered if renal function worsens. - recommend urology consult to review stent duration if UTI does not improve - avoid nsaids Dispo: We will continue to follow the patient. Thank you for this consultative opportunity. Visit type - Emergency Visit Emergency Visit: No - New Patient This patient is new to me today: Yes Date on this admission: 06/27/17 - Critical Care Critical Care patient: No
--- NOTE | 2017-06-27 11:40 | CON.CARD ---
Consult Consult Specialty:: Cardiology Referred by:: Maye Castro MD Reason for Consultation:: Altered mental status - History of Present Illness Chief Complaint: Confusion History of Present Illness: Patient is a 76 year old male with underlying history of AF on anticoagulation, COPD/emphysema with long history of cigarette smoking, diverticulitis, HTN, type 2 DM and hypercholesterolemia, recent SILAS secondary to obstructive nephropathy (bladder inlet obstruction) and prostate Ca presents to [facility] with AMS at the [facility] and found to have suspected UTI, delirium, increased falls and gait instability. - History Source History Provided By: Patient - Past Medical History AIRSET MOLDER: No: Alzheimer's, CVA, Dementia, Migraine, Multiple Sclerosis, Peripheral Neuropathy, Parkinson's, Seizure, Syncope, TIA, Vertigo, Other Cardio/Vascular: Yes: AFIB, Aneurysm, Aortic Insufficiency, Aortic Stenosis, CAD , CHF, Deep Vein Thrombosis, HTN, Hyperlipdemia, [place], Mitral Insufficiency, Mitral Stenosis, Murmur, Pulmonary Hypertension, Other Pulmonary: No: Asthma, Bronchitis, Cancer, COPD, O2 Dependent, Pneumonia, Previously Intubated, Pulmonary Embolus, Pulmonary Fibrosis, Sleep Apnea, Other Gastrointestinal: No: Ascites, Cancer, Constipation, Crohn's Disease, Diverticulitis, Diverticulosis, Esophageal Varices, Gastritis, GERD, GI Bleed, Hemorrhoids, Hiatal Hernia, Inflamatory Bowel Disease, Irritable Bowel Disease, Pancreatitis, Peptic Ulcer Disease, Ulcerative Colitis, Other Hepatobiliary: Yes: Cirrhosis, Cholelithiasis, Cholecystitis, Choledocholithiasis, Hepatitis A, Hepatitis B, Hepatitis C, Other Renal/: Yes: Renal Failure, Renal Inusuff, BPH, Cancer, Hematuria, Hemodialysis, Neurogenic Bladder, Renal Calculi, UTI, Other Endocrine: Yes: Diabetes Mellitus. 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, 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 Travel: No Home Medications - Allergies Allergies/Adverse Reactions: Allergies Allergy/AdvReac Type Severity Reaction Status Date / Time amoxicillin trihydrate Allergy Mild Verified 06/25/17 14:33 [From Augmentin] potassium clavulanate AdvReac Unknown Verified 06/25/17 14:33 [From Augmentin] - Home Medications Home Medications: Ambulatory Orders Apixaban [Eliquis -] 5 mg PO BID tablet 06/12/17 Bicalutamide [Casodex -] 50 mg PO DAILY tablet 06/12/17 Nicotine Patch [Nicoderm Patch -] 14 mg TD DAILY patch 06/12/17 Pantoprazole Sodium [Protonix -] 40 mg PO DAILY tab 06/12/17 Polyethylene Glycol 3350 [Miralax 119 gm Btl -] 17 gm PO DAILY bottle 06/12/17 Polyvinyl Alcohol [Artificial Tears] 1 drop OU BID PRN #0 ml 06/12/17 Acetaminophen [Tylenol] 650 mg PO QID PRN 06/25/17 Diltiazem HCl [Cardizem LA] 240 mg PO DAILY 06/25/17 Levofloxacin [Levaquin] 500 mg PO DAILY 06/25/17 Review of Systems - Review of Systems Neurological: reports: Confusion Vital Signs: Vital Signs Temperature 97.5 F L 06/27/17 10:00 Pulse Rate 92 H 06/27/17 10:00 Respiratory Rate 18 06/27/17 10:00 Blood Pressure 117/54 06/27/17 10:00 O2 Sat by Pulse Oximetry (%) 95 06/27/17 09:00 Constitutional: Yes: No Distress, Calm Neck: Yes: Supple Respiratory: Yes: Regular, Diminished Gastrointestinal: Yes: Soft, Hypoactive Bowel Sounds Cardiovascular: Yes: Pulse Irregular JVD: No Carotid Bruit: No Heart Sounds: Yes: S1, S2 Edema: No - Other Data Labs, Other Data: CBC, BMP 06/26/17 06:00 06/26/17 06:00 INR, PTT INR 1.89 (0.82-1.09) H D 06/25/17 15:37 Afib @ 77 Ejection Fraction %: LVEF > or = 40 % Imaging - Results Chest X-ray: Report Reviewed (NAD) Cat Scan: Report Reviewed (HCT: No acute changes) Problem List - Problems (1) Delirium Code(s): R41.0 - DISORIENTATION, UNSPECIFIED (2) Prostate cancer Code(s): C61 - MALIGNANT NEOPLASM OF PROSTATE (3) UTI (urinary tract infection) Code(s): N39.0 - URINARY TRACT INFECTION, SITE NOT SPECIFIED Qualifiers: Urinary tract infection type: site unspecified (4) Atrial fibrillation with RVR Code(s): I48.91 - UNSPECIFIED ATRIAL FIBRILLATION (5) Diabetes Code(s): E11.9 - TYPE 2 DIABETES MELLITUS WITHOUT COMPLICATIONS Qualifiers: Diabetes mellitus type: type 2 Diabetes mellitus complication status: without complication (6) Diastolic CHF Code(s): I50.30 - UNSPECIFIED DIASTOLIC (CONGESTIVE) HEART FAILURE Qualifiers : Congestive heart failure chronicity: chronic Qualified Code(s): I50.32 - Chronic diastolic (congestive) heart failure (7) HTN (hypertension) Code(s): I10 - ESSENTIAL (PRIMARY) HYPERTENSION Qualifiers: Hypertension type: essential hypertension Qualified Code(s): I10 - Essential (primary) hypertension (8) Hyperlipidemia associated with type 2 diabetes mellitus Code(s): E11.69 - TYPE 2 DIABETES MELLITUS WITH OTHER SPECIFIED COMPLICATION E78.5 - HYPERLIPIDEMIA, UNSPECIFIED (9) Gait disturbance Code(s): R26.9 - UNSPECIFIED ABNORMALITIES OF GAIT AND MOBILITY (10) Toxic metabolic encephalopathy Code(s): G92 - TOXIC ENCEPHALOPATHY Assessment/Plan 05/20/2017 Echo: Normal LV size and fxn without sig valve abnl 1. UTI with toxic metabolic encephelopathy improving 2. CKD with h/o acute kidney injury (post obstructive-prostate cancer) requiring temporary HD 3. H/o Digoxin toxicity - resolved 4. Permanent atrial fibrillation with variable ventricular response 5. History of hypertension 6. COPD/emphysema with history of exacerbation 7. Type 2 diabetes mellitus 8. Prostate cancer causing extrinsic ureteral compression and hydronephrosis post intervention - post bilateral stents, bladder biopsy PLAN: 1. Complete abx course per C&S 2. Monitor renal function and electrolytes. 3. Continue Cardizem CD 240 qd and titrate as tolerated 4. Currently on Eliquis 5 mg BID 5. Consider ACEI or ARB once renal function stabilizes 6. Fall precaution. PT as tolerated for gait training->SNF 7. Thank you for consultative opportunity
--- NOTE | 2017-06-27 11:40 | CONSULT ---
Consult - text type - Consultation Consultation Note: Renal Attending consult note Pt seen and examined with front office medical assistant This is a 76 year old gentleman with PMhx of COPD, Diverticulitis, DM, Recent SILAS secondary to obstructive nephropathy (bladder inlet obstruction), Recently diagnosed prostate Ca who presented with AMS at the [facility] and found to have suspected UTI and Delirium. PMhx: as above Allergies: As listed in EMR Social hx: former ETOH abuser Family Hx: NC ROS: no fever, strick[place], chest pain, abd pain, N/V/D, rash, dysurai, hematuraia Vital Signs Temperature 97.5 F L 06/27/17 10:00 Pulse Rate 92 H 06/27/17 10:00 Respiratory Rate 18 06/27/17 10:00 Blood Pressure 117/54 06/27/17 10:00 O2 Sat by Pulse Oximetry (%) 95 06/27/17 09:00 Intake & Output 06/24/17 06/25/17 06/26/17 06/27/17 23:59 23:59 23:59 23:59 Intake Total 200 1140 0 Output Total 300 200 Balance -100 940 0 Weight 245 lb Gen: NAD, awake and alert CVS: RRR Lungs: CTA, no rales or wheeze Abd: soft NT/ND Ext: No edema CBC, BMP 06/26/17 06:00 06/26/17 06:00 Current Medications Acetaminophen (Tylenol -) 650 mg PO Q6H PRN PRN Reason: PAIN Last Admin: 06/27/17 06:04 Dose: 650 mg Apixaban (Eliquis -) 5 mg PO BID [facility] Last Admin: 06/27/17 09:24 Dose: 5 mg Artificial Tears (Artificial Tears) 1 drop OU BID PRN PRN Reason: DRY EYES Last Admin: 06/26/17 10:19 Dose: 1 drop Bicalutamide (Casodex -) 50 mg PO DAILY [facility] Last Admin: 06/27/17 09:24 Dose: 50 mg Diltiazem HCl (Cardizem Cd -) 240 mg PO DAILY [facility] Last Admin: 06/27/17 09:23 Dose: 240 mg Donepezil HCl (Aricept -) 5 mg PO DAILY [facility] Last Admin: 06/27/17 09:26 Dose: 5 mg Ceftriaxone Sodium 1 gm/ (Dextrose) 50 mls @ 100 mls/hr IVPB DAILY [facility] Last Admin: 06/27/17 09:23 Dose: 100 mls/hr Sodium Chloride (Normal Saline -) 1,000 mls @ 75 mls/hr IV ASDIR [facility] Stop: 06/27/17 23:29 Nicotine (Nicoderm Patch -) 14 mg TD DAILY [facility] Last Admin: 06/27/17 09:23 Dose: 14 mg Pantoprazole Sodium (Protonix -) 40 mg PO DAILY [facility] Last Admin: 06/27/17 09:23 Dose: 40 mg Polyethylene Glycol (Miralax (For Daily Use) -) 17 gm PO DAILY [facility] Last Admin: 06/27/17 09:24 Dose: 17 gm A/P 66 year old gentleman with PMhx of COPD, Diverticulitis, DM, Recent SILAS secondary to obstructive nephropathy (bladder inlet obstruction), Recently diagnosed prostate Ca who presented with AMS at the [facility] and found to have suspected UTI and Delirium. #Hx of SILAS/CKD Stage 3 Renal function appears stable at this time Cr similar to discharge values no evidence of hyperkalemia, acidosis or volume expansion unlikely that this degree of CKD is contributing to AMS Would trend BUN/Cr while pt is inpatient no imaging warranted at this time would recommend gentle IVF hydration at this time given UTI/Sepsis #AMS/Delirium Continue Abx as Aricpet #UTI/leukocytosis Continue Abx as per ID F/u cultures #Prostate CA/Obstructive uropathy consider urology evaluation for recommended duration of urethral stents continue Casodex for prostate Ca Thank you will follow
--- NOTE | 2017-06-27 15:22 | CONSULT ---
Consult - text type - Consultation Consultation Note: 76 yr old man with HTN, recently diagnosed prostate cancer on casodex, referred from [facility] due to AMS and recent frequent falls. Recalls not feeling like himself yesterday evening, denies fever, dysuria, frequency, pain, sob, cough. As per daughter at bedside he has not been eating or drinking well at the halfway. Pmhx: NIDDM, COPD, Afib on ac, dementia Soc: former smoker, currently on nicodrem patch PHYSICAL EXAMINATION Last Vital Signs Temp Pulse Resp BP Pulse Ox 97.6 F 93 H 20 121/65 95 06/27/17 13:36 06/27/17 13:36 06/27/17 13:36 06/27/17 13:36 06/27/17 09:00 Cor: RSR, No murmurs, No gallops Lungs: Clear to P&A Abd: Soft, Normal bowel sounds, No organomegaly Ext:No significant edema Skin: No rashes, Integument intact Abnormal Lab Results 06/28/17 06/28/17 06:00 06:00 WBC 13.1 H RBC 3.94 L Eosinophils % (Manual) 7 H Anion Gap 6 L BUN 20 H Creatinine 1.5 H AST 12 L Albumin 2.7 L ASSESSMENT/PLAN: 76 yr old man with recently diagnosed dementia, prostate cancer on casodex, AMS , afib on ac, admitted for AMS and SILAS being treated for UTI. Recent admission for similar reason w/u at that time revealed obstructive uropathy/bladder/prostate mass Bladder biopsy--chronic inflammation CT guided bx of mass c/w prostate adeno ca based on CT c/a/p and biopsy ---patient with locally advanced prostate cancer Bone scan neg. Started Casodex--antiandrogen To monitor LFTs monthly on casodex Discussed with daughter at bed side. she understands his overall condition, dementia and treatment options limited due to baseline dementia, functional status
[2017-06-28 07:14] LABS: MCH 30.8 pg (25.7-33.7); MCHC 33.5 g/dl (32.0-35.9); MEAN CELL VOLUME 91.9 fl (80-96); MEAN PLT VOLUME 7.5 fl (7.5-11.1); PLATELET COUNT 330 K/MM3 (134-434); RDW 13.5 % (11.9-15.9); WHITE BLOOD COUNT 13.1 K/mm3 (4.0-10.0)
[2017-06-28 07:56] LABS: ALBUMIN 2.7 g/dl (3.4-5.0); ANION GAP 6 (8-16); BILIRUBIN,TOTAL 0.6 mg/dL (0.2-1.0); CALCIUM 9.4 mg/dL (8.5-10.1); CO2 31 mmol/L (21-32); CREATININE 1.5 mg/dL (0.7-1.3); GLUCOSE,RANDOM 97 mg/dL (74-106); SGOT/AST 12 U/L (15-37); SGPT/ALT 20 U/L (12-78); TOT PROT 6.4 g/dl (6.4-8.2)
[2017-06-28 07:57] LABS: ALK PHOS 90 U/L (45-117)
[2017-06-28 08:50] LABS: TOTAL CELLS COUNTED 100
--- NOTE | 2017-06-28 08:54 | PN ---
Progress Note, Physician Chief Complaint: patient is alert knows his name said he had breakfast feeling a little tired today - Current Medication List Current Medications: Active Medications Acetaminophen (Tylenol -) 650 mg PO Q6H PRN PRN Reason: PAIN Last Admin: 06/27/17 06:04 Dose: 650 mg Apixaban (Eliquis -) 5 mg PO BID [facility] Last Admin: 06/27/17 21:55 Dose: 5 mg Artificial Tears (Artificial Tears) 1 drop OU BID PRN PRN Reason: DRY EYES Last Admin: 06/26/17 10:19 Dose: 1 drop Bicalutamide (Casodex -) 50 mg PO DAILY [facility] Last Admin: 06/27/17 09:24 Dose: 50 mg Diltiazem HCl (Cardizem Cd -) 240 mg PO DAILY [facility] Last Admin: 06/27/17 09:23 Dose: 240 mg Donepezil HCl (Aricept -) 5 mg PO DAILY [facility] Last Admin: 06/27/17 09:26 Dose: 5 mg Ceftriaxone Sodium 1 gm/ (Dextrose) 50 mls @ 100 mls/hr IVPB DAILY [facility] Last Admin: 06/27/17 09:23 Dose: 100 mls/hr Nicotine (Nicoderm Patch -) 14 mg TD DAILY [facility] Last Admin: 06/27/17 09:23 Dose: 14 mg Pantoprazole Sodium (Protonix -) 40 mg PO DAILY [facility] Last Admin: 06/27/17 09:23 Dose: 40 mg Polyethylene Glycol (Miralax (For Daily Use) -) 17 gm PO DAILY [facility] Last Admin: 06/27/17 09:24 Dose: 17 gm - Objective Vital Signs: Vital Signs Temperature 97.4 F L 06/28/17 05:32 Pulse Rate 86 06/28/17 05:32 Respiratory Rate 20 06/28/17 05:32 Blood Pressure 129/82 06/28/17 05:32 O2 Sat by Pulse Oximetry (%) 94 L 06/27/17 21:00 Constitutional: Yes: Calm Neck: Yes: Trachea Midline Cardiovascular: Yes: Regular Rate and Rhythm, S1, S2 Respiratory: Yes: CTA Bilaterally Gastrointestinal: Yes: Normal Bowel Sounds, Soft Edema: No Neurological: Yes: Alert Labs: CBC, BMP 06/28/17 06:00 06/28/17 06:00 INR, PTT INR 1.89 (0.82-1.09) H D 06/25/17 15:37 Problem List - Problems (1) Prostate cancer Assessment/Plan: on casodex outpatient radiation Code(s): C61 - MALIGNANT NEOPLASM OF PROSTATE (2) Toxic metabolic encephalopathy Assessment/Plan: sec to uti wbc 13.3 no fever on iv abx Code(s): G92 - TOXIC ENCEPHALOPATHY (3) Atrial fibrillation with RVR Assessment/Plan: eliquis and cardizem rate control Code(s): I48.91 - UNSPECIFIED ATRIAL FIBRILLATION (4) Hydronephrosis Assessment/Plan: s/p stents urology consult ordered Code(s): N13.30 - UNSPECIFIED HYDRONEPHROSIS Qualifiers: Hydronephrosis type: unspecified Qualified Code(s): N13.30 - Unspecified hydronephrosis (5) SILAS (acute kidney injury) Assessment/Plan: h/o of SILAS CKD 3 on iv fluids creatinine has plateau bun is trending down Code(s): N17.9 - ACUTE KIDNEY FAILURE, UNSPECIFIED (6) Gait disturbance Assessment/Plan: PT appreciate neuro input started on donazepil possible early alzheimier disease Code(s): R26.9 - UNSPECIFIED ABNORMALITIES OF GAIT AND MOBILITY Assessment/Plan urology to see patient PT eval iv abx per ID
--- NOTE | 2017-06-28 09:00 | DS ---
Physical Examination Vital Signs: Vital Signs Temperature 97.4 F L 06/28/17 05:32 Pulse Rate 86 06/28/17 05:32 Respiratory Rate 20 06/28/17 05:32 Blood Pressure 129/82 06/28/17 05:32 O2 Sat by Pulse Oximetry (%) 94 L 06/27/17 21:00 Constitutional: Yes: Calm Neck: Yes: Trachea Midline Cardiovascular: Yes: Regular Rate and Rhythm, S1, S2 Respiratory: Yes: CTA Bilaterally Gastrointestinal: Yes: Normal Bowel Sounds, Soft Edema: No Neurological: Yes: Alert, Oriented (to name ,periods of confusion) Labs: CBC, BMP 06/28/17 06:00 06/28/17 06:00 Discharge Summary Reason For Visit: MALIGNANT NEOPLASM OF PROSTATE Current Active Problems SILAS (acute kidney injury) (Acute) Confusion (Acute) Delirium (Acute) Gait disturbance (Acute) Generalized weakness (Acute) Orthostatic hypotension (Acute) Prostate cancer (Acute) Toxic metabolic encephalopathy (Acute) UTI (urinary tract infection) (Acute) Hospital Course: PCP: Maye Castro - Admission Chief Complaint: Altered mental status History of Present Illness: Mr. Shafer, a pleasently confused 76 year old male came in through [facility] ER from [facility] for gradual increase in altered mental status. Patient was recently hospitalized for acute renal failure and diagnosed with Prostate adenocarcinoma, is currently on Chemotherapy. As per [facility] notes from [facility], patient had fallen 3 x in past 1 week, had hallucinations and orthostatic hypotension. Upon evaluation, his CXR and CT head was negative for any acute finding. However , labs indicated leukocytosis with +3 blood in his urine with negative nitrites. He has no fever, chills, fatigue, dysuria or polyuria. On his last admission, patient had typical symptoms of acute delirium with fluctuating attention, memory and agitation. He was evaluated by Neurology with no acute diagnosis but delerium secondary to general medical condition. 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: No: Alzheimer's, CVA, Dementia, Migraine, Multiple Sclerosis, Peripheral Neuropathy, Parkinson's, Seizure, Syncope, TIA, Vertigo, Other Cardiovascular: Yes: AFIB, Aneurysm, Aortic Insufficiency, Aortic Stenosis, CAD , CHF, Deep Vein Thrombosis, HTN, Hyperlipdemia, PR, Mitral Insufficiency, Mitral Stenosis, Murmur, Pulmonary Hypertension, Other Pulmonary: No: Asthma, Bronchitis, Cancer, COPD, O2 Dependent, Pneumonia, Previously Intubated, Pulmonary Embolus, Pulmonary Fibrosis, Sleep Apnea, Other Gastrointestinal: No: Ascites, Cancer, Constipation, Crohn's Disease, Diverticulitis, Diverticulosis, Esophageal Varices, Gastritis, GERD, GI Bleed, Hemorrhoids, Hiatal Hernia, Inflamatory Bowel Disease, Irritable Bowel Disease, Pancreatitis, Peptic Ulcer Disease, Ulcerative Colitis, Other Hepatobiliary: Yes: Cirrhosis, Cholelithiasis, Cholecystitis, Choledocholithiasis, Hepatitis A, Hepatitis B, Hepatitis C, Other Renal/: Yes: Renal Failure, Renal Inusuff, BPH, Cancer, Hematuria, Hemodialysis, Neurogenic Bladder, Renal Calculi, UTI, Other Endocrine: Yes: Diabetes Mellitus. No: Adalberto's Disease, Underwood's Disease, Diabetes Insipidus, Hyperparathyroidism, Hyperthyroidism, Hypothyroidism, Osteopenia, SIADH, Other - Smoking History Smoking history: Current every day smoker Have you smoked in the past 12 months: Yes Aproximately how many cigarettes per day: 20 hospital: toxic metabolic encephalopathy: elevated wbc on iv abx possible uti, wbc slightly lower, cultures negative acute on chronic renal disease ivfluids, cr has plateau h/p hydronephrosis s/p stents urolgy eval prostate cancer casodex gait distrubance started on donazepil and PT eval, neuro saw patient Condition: Improved - Instructions Diet, Activity, Other Instructions: FU with Dr carl flynn urology radiation oncology as outpatient Referrals: Maye Castro MD [Primary Care Provider] - Disposition: [facility] - Home Medications Comprehensive Discharge Medication List: Ambulatory Orders Apixaban [Eliquis -] 5 mg PO BID tablet 06/12/17 Bicalutamide [Casodex -] 50 mg PO DAILY tablet 06/12/17 Nicotine Patch [Nicoderm Patch -] 14 mg TD DAILY patch 06/12/17 Pantoprazole Sodium [Protonix -] 40 mg PO DAILY tab 06/12/17 Polyethylene Glycol 3350 [Miralax 119 gm Btl -] 17 gm PO DAILY bottle 06/12/17 Polyvinyl Alcohol [Artificial Tears] 1 drop OU BID PRN #0 ml 06/12/17 Acetaminophen [Tylenol] 650 mg PO QID PRN 06/25/17 Diltiazem HCl [Cardizem LA] 240 mg PO DAILY 06/25/17 Levofloxacin [Levaquin] 500 mg PO DAILY 06/25/17
[2017-06-28] MEDS ORDERED: cefTRIAXone SODIUM 1 GM VIAL ONE (09:26)
[2017-06-28] MEDS ORDERED: DEXTROSE 5%-WATER - 50 ML IVPB ONE (09:26)
[2017-06-28] MEDS: PANTOPRAZOLE 40 MG TABLET (FP) PO SCH (09:31)
[2017-06-28] MEDS: CEFTRIAXONE 1 GM in DEXTROSE 5%-WATER - 50 ML IVPB SCH (09:31)
[2017-06-28] MEDS: NICOTINE 14 MG/24 HOURS TOPICAL PATCH TD SCH (09:31)
[2017-06-28] MEDS: DONEPEZIL HCL 5 MG TABLET (FP) PO SCH (09:31)
[2017-06-28] MEDS: POLYETHYLENE GLYCOL 3350 119 GM BTL PO SCH (09:32)
[2017-06-28] MEDS: APIXABAN 5 MG TABLET PO SCH ×2 (09:32→21:59)
[2017-06-28] MEDS: BICALUTAMIDE 50 MG TABLET (FP) PO SCH (09:32)
--- NOTE | 2017-06-28 12:41 | PN ---
Progress Note (short form) - Note Progress Note: renal sono noted urology consult placed ID follow up regarding iv abx Problem List - Problems (1) Prostate cancer Code(s): C61 - MALIGNANT NEOPLASM OF PROSTATE (2) Toxic metabolic encephalopathy Code(s): G92 - TOXIC ENCEPHALOPATHY (3) Atrial fibrillation with RVR Code(s): I48.91 - UNSPECIFIED ATRIAL FIBRILLATION (4) Hydronephrosis Code(s): N13.30 - UNSPECIFIED HYDRONEPHROSIS Qualifiers: Hydronephrosis type: unspecified Qualified Code(s): N13.30 - Unspecified hydronephrosis (5) SILAS (acute kidney injury) Code(s): N17.9 - ACUTE KIDNEY FAILURE, UNSPECIFIED (6) Gait disturbance Code(s): R26.9 - UNSPECIFIED ABNORMALITIES OF GAIT AND MOBILITY
--- NOTE | 2017-06-28 12:56 | PN ---
Progress Note, Physician History of Present Illness: Sensorium improved. - Current Medication List Current Medications: Active Medications Acetaminophen (Tylenol -) 650 mg PO Q6H PRN PRN Reason: PAIN Last Admin: 06/27/17 06:04 Dose: 650 mg Apixaban (Eliquis -) 5 mg PO BID [facility] Last Admin: 06/28/17 09:32 Dose: 5 mg Artificial Tears (Artificial Tears) 1 drop OU BID PRN PRN Reason: DRY EYES Last Admin: 06/26/17 10:19 Dose: 1 drop Bicalutamide (Casodex -) 50 mg PO DAILY [facility] Last Admin: 06/28/17 09:32 Dose: 50 mg Diltiazem HCl (Cardizem Cd -) 240 mg PO DAILY [facility] Last Admin: 06/28/17 09:31 Dose: 240 mg Donepezil HCl (Aricept -) 5 mg PO DAILY [facility] Last Admin: 06/28/17 09:31 Dose: 5 mg Ceftriaxone Sodium 1 gm/ (Dextrose) 50 mls @ 100 mls/hr IVPB DAILY [facility] Last Admin: 06/28/17 09:31 Dose: 100 mls/hr Nicotine (Nicoderm Patch -) 14 mg TD DAILY [facility] Last Admin: 06/28/17 09:31 Dose: 14 mg Pantoprazole Sodium (Protonix -) 40 mg PO DAILY [facility] Last Admin: 06/28/17 09:31 Dose: 40 mg Polyethylene Glycol (Miralax (For Daily Use) -) 17 gm PO DAILY [facility] Last Admin: 06/28/17 09:32 Dose: 17 gm - Objective Vital Signs: Vital Signs Temperature 97.4 F L 06/28/17 05:32 Pulse Rate 86 06/28/17 05:32 Respiratory Rate 20 06/28/17 05:32 Blood Pressure 129/82 06/28/17 05:32 O2 Sat by Pulse Oximetry (%) 94 L 06/27/17 21:00 Constitutional: Yes: No Distress, Calm Neck: Yes: Supple Cardiovascular: Yes: Pulse Irregular Respiratory: Yes: Regular, Diminished Gastrointestinal: Yes: Normal Bowel Sounds, Soft Edema: No Labs: CBC, BMP 06/28/17 06:00 06/28/17 06:00 INR, PTT INR 1.89 (0.82-1.09) H D 06/25/17 15:37 - ....Imaging Ultrasound: Report Reviewed (Moderate right hydronephrosis) Problem List - Problems (1) Delirium Code(s): R41.0 - DISORIENTATION, UNSPECIFIED (2) Prostate cancer Code(s): C61 - MALIGNANT NEOPLASM OF PROSTATE (3) UTI (urinary tract infection) Code(s): N39.0 - URINARY TRACT INFECTION, SITE NOT SPECIFIED Qualifiers: Urinary tract infection type: site unspecified (4) Atrial fibrillation with RVR Code(s): I48.91 - UNSPECIFIED ATRIAL FIBRILLATION (5) Diabetes Code(s): E11.9 - TYPE 2 DIABETES MELLITUS WITHOUT COMPLICATIONS Qualifiers: Diabetes mellitus type: type 2 Diabetes mellitus complication status: without complication (6) Diastolic CHF Code(s): I50.30 - UNSPECIFIED DIASTOLIC (CONGESTIVE) HEART FAILURE Qualifiers : Congestive heart failure chronicity: chronic Qualified Code(s): I50.32 - Chronic diastolic (congestive) heart failure (7) HTN (hypertension) Code(s): I10 - ESSENTIAL (PRIMARY) HYPERTENSION Qualifiers: Hypertension type: essential hypertension Qualified Code(s): I10 - Essential (primary) hypertension (8) Hyperlipidemia associated with type 2 diabetes mellitus Code(s): E11.69 - TYPE 2 DIABETES MELLITUS WITH OTHER SPECIFIED COMPLICATION E78.5 - HYPERLIPIDEMIA, UNSPECIFIED (9) Gait disturbance Code(s): R26.9 - UNSPECIFIED ABNORMALITIES OF GAIT AND MOBILITY (10) Toxic metabolic encephalopathy Code(s): G92 - TOXIC ENCEPHALOPATHY Assessment/Plan 05/20/2017 Echo: Normal LV size and fxn without sig valve abnl 1. UTI with toxic metabolic encephelopathy improving 2. CKD with h/o acute kidney injury (post obstructive-prostate cancer) requiring temporary HD 3. H/o Digoxin toxicity - resolved 4. Permanent atrial fibrillation with variable ventricular response 5. History of hypertension 6. COPD/emphysema with history of exacerbation 7. Type 2 diabetes mellitus 8. Prostate cancer causing extrinsic ureteral compression and hydronephrosis post intervention - post bilateral stents, bladder biopsy PLAN: 1. Complete abx course per C&S 2. Monitor renal function and electrolytes. 3. Continue Cardizem CD 240 qd and titrate as tolerated 4. Currently on Eliquis 5 mg BID 5. Consider ACEI or ARB once renal function stabilizes 6. Fall precaution. PT as tolerated for gait training->SNF 7. Urology input pending
--- NOTE | 2017-06-28 13:59 | PN ---
Progress Note (short form) - Note Progress Note: ID Went to see patient and found him to be belligerent confused making n sense He remains afebrile Selected Entries 06/28/17 09:00 Temperature 97.0 F L Pulse Rate 100 H Respiratory 18 Rate Blood Pressure 118/58 Microbiology 06/25/17 15:37 Urine - Urine Clean Catch Urine Culture - Final NO GROWTH OBTAINED 06/25/17 18:30 Blood - Peripheral Venous Blood Culture - Preliminary NO GROWTH OBTAINED AFTER 48 HOURS, INCUBATION TO CONTINUE FOR 3 DAYS. 06/25/17 18:30 Blood - Peripheral Venous Blood Culture - Preliminary NO GROWTH OBTAINED AFTER 48 HOURS, INCUBATION TO CONTINUE FOR 3 DAYS. Laboratory Tests 06/25/17 06/25/17 06/25/17 15:37 15:37 15:42 WBC 15.6 H Hgb Plt Count Neutrophils % (Manual) Lymphocytes % (Manual) Monocytes % (Manual) Eosinophils % (Manual) INR 1.89 H D BUN Creatinine Creat Clearance w eGFR Total Bilirubin AST ALT Alkaline Phosphatase Urine Urobilinogen Negative Urine RBC 233 Urine WBC 128 06/26/17 06/28/17 06/28/17 06:00 06:00 06:00 WBC 13.9 H 13.1 H Hgb 12.1 Plt Count 330 Neutrophils % (Manual) 79 Lymphocytes % (Manual) 8 D Monocytes % (Manual) 6 Eosinophils % (Manual) 7 H INR BUN 20 H Creatinine 1.5 H Creat Clearance w eGFR 45.75 Total Bilirubin 0.6 AST 12 L ALT 20 Alkaline Phosphatase 90 Urine Urobilinogen Urine RBC Urine WBC Assessment Delerium Now I doubt related to UTI. Very confused today belligerant confused Etiology unclear Plan Stop Ceftriaxone Add Seroquel after discussion PMD MRI brain RPR Karen ELIZABETH Problem List - Problems (1) Confusion Code(s): R41.0 - DISORIENTATION, UNSPECIFIED (2) Prostate cancer Code(s): C61 - MALIGNANT NEOPLASM OF PROSTATE (3) UTI (urinary tract infection) Code(s): N39.0 - URINARY TRACT INFECTION, SITE NOT SPECIFIED Qualifiers: Urinary tract infection type: site unspecified
--- NOTE | 2017-06-28 14:42 | PN ---
Progress Note (short form) - Note Progress Note: Renal Follow up for CKD Pt seen and examined at the bedside confused pt was agigated at night daughter at the bedside Vital Signs Temperature 97.9 F 06/28/17 13:49 Pulse Rate 100 H 06/28/17 13:49 Respiratory Rate 20 06/28/17 13:49 Blood Pressure 146/73 06/28/17 13:49 O2 Sat by Pulse Oximetry (%) 95 06/28/17 09:00 Intake & Output 06/25/17 06/26/17 06/27/17 06/28/17 23:59 23:59 23:59 23:59 Intake Total 200 1140 1325 975 Output Total 300 200 200 Balance -976 996 0524 975 Weight 245 lb Gen: NAD, awake and alert CVS: RRR Lungs: CTA, no rales or wheeze Abd: soft NT/ND Ext: No edema CBC, BMP 06/28/17 06:00 06/28/17 06:00 Current Medications Acetaminophen (Tylenol -) 650 mg PO Q6H PRN PRN Reason: PAIN Last Admin: 06/27/17 06:04 Dose: 650 mg Apixaban (Eliquis -) 5 mg PO BID [facility] Last Admin: 06/28/17 09:32 Dose: 5 mg Artificial Tears (Artificial Tears) 1 drop OU BID PRN PRN Reason: DRY EYES Last Admin: 06/26/17 10:19 Dose: 1 drop Bicalutamide (Casodex -) 50 mg PO DAILY [facility] Last Admin: 06/28/17 09:32 Dose: 50 mg Diltiazem HCl (Cardizem Cd -) 240 mg PO DAILY [facility] Last Admin: 06/28/17 09:31 Dose: 240 mg Donepezil HCl (Aricept -) 5 mg PO DAILY [facility] Last Admin: 06/28/17 09:31 Dose: 5 mg Nicotine (Nicoderm Patch -) 14 mg TD DAILY [facility] Last Admin: 06/28/17 09:31 Dose: 14 mg Pantoprazole Sodium (Protonix -) 40 mg PO DAILY [facility] Last Admin: 06/28/17 09:31 Dose: 40 mg Polyethylene Glycol (Miralax (For Daily Use) -) 17 gm PO DAILY [facility] Last Admin: 06/28/17 09:32 Dose: 17 gm Quetiapine Fumarate (Seroquel -) 25 mg PO BID [facility] A/P 66 year old gentleman with PMhx of COPD, Diverticulitis, DM, Recent SILAS secondary to obstructive nephropathy (bladder inlet obstruction), Recently diagnosed prostate Ca who presented with AMS at the [place] and found to have suspected UTI and Delirium. #Hx of SILAS/CKD Stage 3 Renal function remains stable at this time US of kidney shows hydronephrosis but with a patient stent given Cr being improved and stable this is less likely a functional hydronephrosis #AMS/Delirium Continue Abx as Aricpet started on seroquel today to get MRI #UTI/leukocytosis off Abx #Prostate CA/Obstructive uropathy consider urology evaluation for recommended duration of urethral stents continue Casodex for prostate Ca Thank you will follow
[2017-06-28 15:06] LABS: C-REACTIVE PROTEIN 4.8 MG/DL (0.00-0.3)
[2017-06-28] MEDS ORDERED: PT OWN MED DRAWER 7, Y5N ONE (21:22)
[2017-06-28] MEDS: QUEtiapine FUMARATE 25 MG TABLET (FP) PO SCH (21:59)
[2017-06-29 07:26] LABS: BASOPHIL 0.8 % (0-2.0); EOSINOPHIL 2.9 % (0-4.5); MCH 31.4 pg (25.7-33.7); MCHC 34.5 g/dl (32.0-35.9); MEAN PLT VOLUME 7.4 fl (7.5-11.1); NEUTROPHILS 80.2 % (42.8-82.8); PLATELET COUNT 299 K/MM3 (134-434); RDW 13.3 % (11.9-15.9); WHITE BLOOD COUNT 12.4 K/mm3 (4.0-10.0)
[2017-06-29 08:07] LABS: ALBUMIN 2.7 g/dl (3.4-5.0); ANION GAP 10 (8-16); CO2 28 mmol/L (21-32); CREATININE 1.3 mg/dL (0.7-1.3); GLUCOSE,RANDOM 114 mg/dL (74-106); MAGNESIUM 2.3 mg/dL (1.8-2.4); PHOSPHOROUS 3.9 mg/dL (2.5-4.9); SGOT/AST 12 U/L (15-37); SGPT/ALT 16 U/L (12-78)
[2017-06-29 08:09] LABS: ALK PHOS 97 U/L (45-117); BILIRUBIN,TOTAL 0.5 mg/dL (0.2-1.0); TOT PROT 6.3 g/dl (6.4-8.2)
--- NOTE | 2017-06-29 09:50 | PN ---
Progress Note, Physician Chief Complaint: ASLEEP, COMFORTABLE CHART REVIEWED - Current Medication List Current Medications: Active Medications Acetaminophen (Tylenol -) 650 mg PO Q6H PRN PRN Reason: PAIN Last Admin: 06/27/17 06:04 Dose: 650 mg Apixaban (Eliquis -) [address] [facility] Last Admin: 06/28/17 21:59 Dose: 5 mg Artificial Tears (Artificial Tears) 1 drop OU BID PRN PRN Reason: DRY EYES Last Admin: 06/26/17 10:19 Dose: 1 drop Bicalutamide (Casodex -) [address] [facility] Last Admin: 06/28/17 09:32 Dose: 50 mg Diltiazem HCl (Cardizem Cd -) [address] [facility] Last Admin: 06/28/17 09:31 Dose: 240 mg Donepezil HCl (Aricept -) [address] [facility] Last Admin: 06/28/17 09:31 Dose: 5 mg Nicotine (Nicoderm Patch -) [address] [facility] Last Admin: 06/28/17 09:31 Dose: 14 mg Pantoprazole Sodium (Protonix -) [address] [facility] Last Admin: 06/28/17 09:31 Dose: 40 mg Polyethylene Glycol (Miralax (For Daily Use) -) [address] [facility] Last Admin: 06/28/17 09:32 Dose: 17 gm Quetiapine Fumarate (Seroquel -) [address] [facility] Last Admin: 06/28/17 21:59 Dose: 25 mg - Objective Vital Signs: Vital Signs Temperature 97.5 F L 06/29/17 06:00 Pulse Rate 92 H 06/29/17 06:00 Respiratory Rate 18 06/29/17 06:00 Blood Pressure 142/76 06/29/17 06:00 O2 Sat by Pulse Oximetry (%) 97 06/28/17 21:00 Constitutional: Yes: No Distress Eyes: Yes: WNL HENT: Yes: WNL Neck: Yes: WNL Cardiovascular: Yes: WNL Respiratory: Yes: WNL Gastrointestinal: Yes: WNL Genitourinary: Yes: Other Musculoskeletal: Yes: Muscle Weakness Extremities: Yes: WNL Edema: Yes Edema: LLE: Trace, RLE: Trace Peripheral Pulses WNL: Yes Integumentary: Yes: WNL Wound/Incision: Yes: Clean/Dry Neurological: Yes: Pre-Existing Deficit, Weakness ...Motor Strength: LLE, RLE Psychiatric: Yes: Agitated Labs: CBC, BMP 06/29/17 06:10 06/29/17 06:10 INR, PTT INR 1.89 (0.82-1.09) H D 06/25/17 15:37 Problem List - Problems (1) SILAS (acute kidney injury) Code(s): N17.9 - ACUTE KIDNEY FAILURE, UNSPECIFIED (2) Confusion Code(s): R41.0 - DISORIENTATION, UNSPECIFIED (3) Delirium Code(s): R41.0 - DISORIENTATION, UNSPECIFIED (4) Gait disturbance Code(s): R26.9 - UNSPECIFIED ABNORMALITIES OF GAIT AND MOBILITY (5) Generalized weakness Code(s): R53.1 - WEAKNESS (6) Prostate cancer Code(s): C61 - MALIGNANT NEOPLASM OF PROSTATE (7) Toxic metabolic encephalopathy Code(s): G92 - TOXIC ENCEPHALOPATHY (8) CVA (cerebral infarction) Assessment/Plan: OLD CVA Code(s): I63.9 - CEREBRAL INFARCTION, UNSPECIFIED Qualifiers: Cerebral infarction mechanism: unspecified mechanism Qualified Code(s) : I63.9 - Cerebral infarction, unspecified (9) Diabetes Code(s): E11.9 - TYPE 2 DIABETES MELLITUS WITHOUT COMPLICATIONS Qualifiers: Diabetes mellitus type: type 2 Diabetes mellitus complication status: without complication Assessment/Plan IV ABX PROSTATE CA ON CASADEX COMFORTABLE ON ANTIPSYCHOTICS DVT PROPHYLAXIS
[2017-06-29] MEDS ORDERED: PT OWN MED DRAWER 7, Y5N ONE ×2 (10:23→19:21)
[2017-06-29] MEDS: QUEtiapine FUMARATE 25 MG TABLET (FP) PO SCH ×2 (10:34→22:05)
--- NOTE | 2017-06-29 10:46 | PN ---
Progress Note (short form) - Note Progress Note: Renal Follow up for CKD Pt seen and examined at the bedside no overnight events very groggy, but arouseable Vital Signs Temperature 97.5 F L 06/29/17 10:00 Pulse Rate 83 06/29/17 10:00 Respiratory Rate 20 06/29/17 10:00 Blood Pressure 142/66 06/29/17 10:00 O2 Sat by Pulse Oximetry (%) 97 06/28/17 21:00 Intake & Output 06/26/17 06/27/17 06/28/17 06/29/17 23:59 23:59 23:59 23:59 Intake Total 1140 1325 1175 0 Output Total 200 200 Balance 940 1125 1175 0 Gen: NAD, awake and alert CVS: RRR Lungs: CTA, no rales or wheeze Abd: soft NT/ND Ext: No edema CBC, BMP 06/29/17 06:10 06/29/17 06:10 Laboratory Tests 06/12/17 06/28/17 06/29/17 11:46 06:00 06:10 Calcium 9.4 9.4 9.0 Phosphorus 3.9 Magnesium 2.3 Albumin 3.2 L D 2.7 L 2.7 L Current Medications Acetaminophen (Tylenol -) 650 mg PO Q6H PRN PRN Reason: PAIN Last Admin: 06/27/17 06:04 Dose: 650 mg Apixaban (Eliquis -) 5 mg PO BID [facility] Last Admin: 06/28/17 21:59 Dose: 5 mg Artificial Tears (Artificial Tears) 1 drop OU BID PRN PRN Reason: DRY EYES Last Admin: 06/26/17 10:19 Dose: 1 drop Bicalutamide (Casodex -) 50 mg PO DAILY [facility] Last Admin: 06/28/17 09:32 Dose: 50 mg Diltiazem HCl (Cardizem Cd -) 240 mg PO DAILY [facility] Last Admin: 06/28/17 09:31 Dose: 240 mg Donepezil HCl (Aricept -) 5 mg PO DAILY [facility] Last Admin: 06/28/17 09:31 Dose: 5 mg Nicotine (Nicoderm Patch -) 14 mg TD DAILY [facility] Last Admin: 06/28/17 09:31 Dose: 14 mg Pantoprazole Sodium (Protonix -) 40 mg PO DAILY [facility] Last Admin: 06/28/17 09:31 Dose: 40 mg Polyethylene Glycol (Miralax (For Daily Use) -) 17 gm PO DAILY [facility] Last Admin: 06/28/17 09:32 Dose: 17 gm Quetiapine Fumarate (Seroquel -) 25 mg PO BID [facility] Last Admin: 06/29/17 10:34 Dose: Not Given A/P 66 year old gentleman with PMhx of COPD, Diverticulitis, DM, Recent SILAS secondary to obstructive nephropathy (bladder inlet obstruction), Recently diagnosed prostate Ca who presented with AMS at the [place] and found to have suspected UTI and Delirium. #Hx of SILAS/CKD Stage 3 Renal function remains stable continue to trend as inpatient #AMS/Delirium Continue Abx as Aricpet started on seroquel yesterday to get MRI #UTI/leukocytosis off Abx #Prostate CA/Obstructive uropathy urology follow up continue Casodex for prostate Ca Thank you will follow
[2017-06-29] MEDS: NICOTINE 14 MG/24 HOURS TOPICAL PATCH TD SCH (14:13)
[2017-06-29] MEDS: DONEPEZIL HCL 5 MG TABLET (FP) PO SCH (14:21)
[2017-06-29] MEDS: PANTOPRAZOLE 40 MG TABLET (FP) PO SCH (14:21)
[2017-06-29] MEDS: BICALUTAMIDE 50 MG TABLET (FP) PO SCH (14:22)
[2017-06-29] MEDS: APIXABAN 5 MG TABLET PO SCH ×2 (14:22→22:02)
[2017-06-29] MEDS: POLYETHYLENE GLYCOL 3350 119 GM BTL PO SCH (14:23)
[2017-06-30 07:35] LABS: BASOPHIL 0.9 % (0-2.0); EOSINOPHIL 6.8 % (0-4.5); MCH 30.9 pg (25.7-33.7); MCHC 33.7 g/dl (32.0-35.9); MEAN CELL VOLUME 91.7 fl (80-96); MEAN PLT VOLUME 7.4 fl (7.5-11.1); NEUTROPHILS 72.6 % (42.8-82.8); PLATELET COUNT 314 K/MM3 (134-434); RDW 13.4 % (11.9-15.9); WHITE BLOOD COUNT 12.7 K/mm3 (4.0-10.0)
[2017-06-30 08:01] LABS: ANION GAP 9 (8-16); CALCIUM 9.2 mg/dL (8.5-10.1); CO2 29 mmol/L (21-32); CREATININE 1.4 mg/dL (0.7-1.3); GLUCOSE,RANDOM 89 mg/dL (74-106); MAGNESIUM 2.4 mg/dL (1.8-2.4); PHOSPHOROUS 2.9 mg/dL (2.5-4.9)
[2017-06-30] MEDS ORDERED: PT OWN MED DRAWER 7, Y5N ONE ×2 (11:14→21:11)
--- NOTE | 2017-06-30 11:18 | PN ---
Progress Note, Physician History of Present Illness: Sensorium improved. - Current Medication List Current Medications: Active Medications Acetaminophen (Tylenol -) 650 mg PO Q6H PRN PRN Reason: PAIN Last Admin: 06/27/17 06:04 Dose: 650 mg Apixaban (Eliquis -) 5 mg PO BID [facility] Last Admin: 06/29/17 22:02 Dose: 5 mg Artificial Tears (Artificial Tears) 1 drop OU BID PRN PRN Reason: DRY EYES Last Admin: 06/26/17 10:19 Dose: 1 drop Bicalutamide (Casodex -) 50 mg PO DAILY [facility] Last Admin: 06/29/17 14:22 Dose: 50 mg Diltiazem HCl (Cardizem Cd -) 240 mg PO DAILY [facility] Last Admin: 06/29/17 14:13 Dose: 240 mg Donepezil HCl (Aricept -) 5 mg PO DAILY [facility] Last Admin: 06/29/17 14:21 Dose: 5 mg Nicotine (Nicoderm Patch -) 14 mg TD DAILY [facility] Last Admin: 06/29/17 14:13 Dose: 14 mg Pantoprazole Sodium (Protonix -) 40 mg PO DAILY [facility] Last Admin: 06/29/17 14:21 Dose: 40 mg Polyethylene Glycol (Miralax (For Daily Use) -) 17 gm PO DAILY [facility] Last Admin: 06/29/17 14:23 Dose: 17 gm Quetiapine Fumarate (Seroquel -) 25 mg PO BID [facility] Last Admin: 06/29/17 22:05 Dose: Not Given - Objective Vital Signs: Vital Signs Temperature 97.5 F L 06/30/17 06:00 Pulse Rate 94 H 06/30/17 06:00 Respiratory Rate 20 06/30/17 06:00 Blood Pressure 135/95 06/30/17 06:00 O2 Sat by Pulse Oximetry (%) 97 06/29/17 21:00 Constitutional: Yes: No Distress, Calm Neck: Yes: Supple Cardiovascular: Yes: Regular Rate and Rhythm Respiratory: Yes: Regular, Diminished Gastrointestinal: Yes: Normal Bowel Sounds, Soft Edema: No Labs: CBC, BMP 06/30/17 06:10 06/30/17 06:10 INR, PTT INR 1.89 (0.82-1.09) H D 06/25/17 15:37 Problem List - Problems (1) Delirium Code(s): R41.0 - DISORIENTATION, UNSPECIFIED (2) Prostate cancer Code(s): C61 - MALIGNANT NEOPLASM OF PROSTATE (3) UTI (urinary tract infection) Code(s): N39.0 - URINARY TRACT INFECTION, SITE NOT SPECIFIED Qualifiers: Urinary tract infection type: site unspecified (4) Atrial fibrillation with RVR Code(s): I48.91 - UNSPECIFIED ATRIAL FIBRILLATION (5) Diabetes Code(s): E11.9 - TYPE 2 DIABETES MELLITUS WITHOUT COMPLICATIONS Qualifiers: Diabetes mellitus type: type 2 Diabetes mellitus complication status: without complication (6) Diastolic CHF Code(s): I50.30 - UNSPECIFIED DIASTOLIC (CONGESTIVE) HEART FAILURE Qualifiers : Congestive heart failure chronicity: chronic Qualified Code(s): I50.32 - Chronic diastolic (congestive) heart failure (7) HTN (hypertension) Code(s): I10 - ESSENTIAL (PRIMARY) HYPERTENSION Qualifiers: Hypertension type: essential hypertension Qualified Code(s): I10 - Essential (primary) hypertension (8) Hyperlipidemia associated with type 2 diabetes mellitus Code(s): E11.69 - TYPE 2 DIABETES MELLITUS WITH OTHER SPECIFIED COMPLICATION E78.5 - HYPERLIPIDEMIA, UNSPECIFIED (9) Gait disturbance Code(s): R26.9 - UNSPECIFIED ABNORMALITIES OF GAIT AND MOBILITY (10) Toxic metabolic encephalopathy Code(s): G92 - TOXIC ENCEPHALOPATHY Assessment/Plan 05/20/2017 Echo: Normal LV size and fxn without sig valve abnl 1. UTI with toxic metabolic encephelopathy improving 2. CKD with h/o acute kidney injury (post obstructive-prostate cancer) requiring temporary HD 3. H/o Digoxin toxicity - resolved 4. Permanent atrial fibrillation with variable ventricular response 5. History of hypertension 6. COPD/emphysema with history of exacerbation 7. Type 2 diabetes mellitus 8. Prostate cancer causing extrinsic ureteral compression and hydronephrosis post intervention - post bilateral stents, bladder biopsy PLAN: 1. Completed abx course per C&S 2. Monitor renal function and electrolytes. 3. Continue Cardizem CD 240 qd and titrate as tolerated 4. Currently on Eliquis 5 mg BID 5. Consider ACEI or ARB once renal function stabilizes 6. Fall precaution. PT as tolerated for gait training->SNF 7. Urology input pending
[2017-06-30] MEDS: DONEPEZIL HCL 5 MG TABLET (FP) PO SCH (11:20)
[2017-06-30] MEDS: PANTOPRAZOLE 40 MG TABLET (FP) PO SCH (11:20)
[2017-06-30] MEDS: NICOTINE 14 MG/24 HOURS TOPICAL PATCH TD SCH (11:21)
[2017-06-30] MEDS: BICALUTAMIDE 50 MG TABLET (FP) PO SCH ×2 (11:21→11:30)
[2017-06-30] MEDS: APIXABAN 5 MG TABLET PO SCH ×2 (11:21→21:13)
[2017-06-30] MEDS: QUEtiapine FUMARATE 25 MG TABLET (FP) PO SCH (11:23)
[2017-06-30] MEDS: POLYETHYLENE GLYCOL 3350 119 GM BTL PO SCH (11:31)
[2017-06-30] MEDS ORDERED: QUEtiapine FUMARATE 25 MG TABLET (FP) PO PRN (11:54)
--- NOTE | 2017-06-30 11:57 | PN ---
Progress Note, Physician Chief Complaint: AWAKE ALERT NAD EVENTS REVIEWED - Current Medication List Current Medications: Active Medications Acetaminophen (Tylenol -) 650 mg PO Q6H PRN PRN Reason: PAIN Last Admin: 06/27/17 06:04 Dose: 650 mg Apixaban (Eliquis -) 5 mg PO BID [facility] Last Admin: 06/30/17 11:21 Dose: 5 mg Artificial Tears (Artificial Tears) 1 drop OU BID PRN PRN Reason: DRY EYES Last Admin: 06/26/17 10:19 Dose: 1 drop Bicalutamide (Casodex -) 50 mg PO DAILY [facility] Last Admin: 06/30/17 11:30 Dose: 50 mg Diltiazem HCl (Cardizem Cd -) 240 mg PO DAILY [facility] Last Admin: 06/30/17 11:20 Dose: 240 mg Donepezil HCl (Aricept -) 5 mg PO DAILY [facility] Last Admin: 06/30/17 11:20 Dose: 5 mg Nicotine (Nicoderm Patch -) 14 mg TD DAILY [facility] Last Admin: 06/30/17 11:21 Dose: 14 mg Pantoprazole Sodium (Protonix -) 40 mg PO DAILY [facility] Last Admin: 06/30/17 11:20 Dose: 40 mg Polyethylene Glycol (Miralax (For Daily Use) -) 17 gm PO DAILY [facility] Last Admin: 06/30/17 11:31 Dose: 17 gm Quetiapine Fumarate (Seroquel -) 25 mg PO BID PRN PRN Reason: ANXIETY - Objective Vital Signs: Vital Signs Temperature 97.9 F 06/30/17 10:00 Pulse Rate 91 H 06/30/17 10:00 Respiratory Rate 18 06/30/17 10:00 Blood Pressure 130/68 06/30/17 10:00 O2 Sat by Pulse Oximetry (%) 97 06/29/17 21:00 Constitutional: Yes: No Distress Eyes: Yes: WNL HENT: Yes: WNL Neck: Yes: WNL Cardiovascular: Yes: WNL Respiratory: Yes: WNL Gastrointestinal: Yes: WNL Genitourinary: Yes: WNL Musculoskeletal: Yes: WNL Extremities: Yes: WNL Edema: No Peripheral Pulses WNL: Yes Integumentary: Yes: WNL Wound/Incision: Yes: Clean/Dry Neurological: Yes: Pre-Existing Deficit ...Motor Strength: LLE, RLE Psychiatric: Yes: Other Labs: CBC, BMP 06/30/17 06:10 06/30/17 06:10 INR, PTT INR 1.89 (0.82-1.09) H D 06/25/17 15:37 Problem List - Problems (1) SILAS (acute kidney injury) Code(s): N17.9 - ACUTE KIDNEY FAILURE, UNSPECIFIED (2) Confusion Code(s): R41.0 - DISORIENTATION, UNSPECIFIED (3) Delirium Code(s): R41.0 - DISORIENTATION, UNSPECIFIED (4) Gait disturbance Code(s): R26.9 - UNSPECIFIED ABNORMALITIES OF GAIT AND MOBILITY (5) Generalized weakness Code(s): R53.1 - WEAKNESS (6) Prostate cancer Code(s): C61 - MALIGNANT NEOPLASM OF PROSTATE (7) Toxic metabolic encephalopathy Code(s): G92 - TOXIC ENCEPHALOPATHY (8) CVA (cerebral infarction) Code(s): I63.9 - CEREBRAL INFARCTION, UNSPECIFIED Qualifiers: Cerebral infarction mechanism: unspecified mechanism Qualified Code(s) : I63.9 - Cerebral infarction, unspecified (9) Diabetes Code(s): E11.9 - TYPE 2 DIABETES MELLITUS WITHOUT COMPLICATIONS Qualifiers: Diabetes mellitus type: type 2 Diabetes mellitus complication status: without complication Assessment/Plan SERAQUEL CHANGED TO PRN BID LABS REVIEWED PROSTATE CA ONCOLOGY F/U DC PLANNING
[2017-07-01] MEDS: APIXABAN 5 MG TABLET PO SCH ×2 (09:34→21:57)
[2017-07-01] MEDS: NICOTINE 14 MG/24 HOURS TOPICAL PATCH TD SCH (09:34)
[2017-07-01] MEDS: BICALUTAMIDE 50 MG TABLET (FP) PO SCH (09:34)
[2017-07-01] MEDS: PANTOPRAZOLE 40 MG TABLET (FP) PO SCH (09:34)
[2017-07-01] MEDS: DONEPEZIL HCL 5 MG TABLET (FP) PO SCH (09:34)
[2017-07-01] MEDS: POLYETHYLENE GLYCOL 3350 119 GM BTL PO SCH (09:35)
--- NOTE | 2017-07-01 10:18 | PN ---
Progress Note, Physician Chief Complaint: Not in distress History of Present Illness: Patient was seen and examined. Awake. Baseline dementia. Chart was reviewed Denies chest pain, SOB or palpitation - Current Medication List Current Medications: Active Medications Acetaminophen (Tylenol -) 650 mg PO Q6H PRN PRN Reason: PAIN Last Admin: 06/27/17 06:04 Dose: 650 mg Apixaban (Eliquis -) 5 mg PO BID [facility] Last Admin: 07/01/17 09:34 Dose: 5 mg Artificial Tears (Artificial Tears) 1 drop OU BID PRN PRN Reason: DRY EYES Last Admin: 06/26/17 10:19 Dose: 1 drop Bicalutamide (Casodex -) 50 mg PO DAILY [facility] Last Admin: 07/01/17 09:34 Dose: 50 mg Diltiazem HCl (Cardizem Cd -) 240 mg PO DAILY [facility] Last Admin: 07/01/17 09:34 Dose: 240 mg Donepezil HCl (Aricept -) 5 mg PO DAILY [facility] Last Admin: 07/01/17 09:34 Dose: 5 mg Nicotine (Nicoderm Patch -) 14 mg TD DAILY [facility] Last Admin: 07/01/17 09:34 Dose: 14 mg Pantoprazole Sodium (Protonix -) 40 mg PO DAILY [facility] Last Admin: 07/01/17 09:34 Dose: 40 mg Polyethylene Glycol (Miralax (For Daily Use) -) 17 gm PO DAILY [facility] Last Admin: 07/01/17 09:35 Dose: 17 gm Quetiapine Fumarate (Seroquel -) 25 mg PO BID PRN PRN Reason: ANXIETY - Objective Vital Signs: Vital Signs Temperature 97.7 F 07/01/17 09:32 Pulse Rate 92 H 07/01/17 09:32 Respiratory Rate 20 07/01/17 09:32 Blood Pressure 150/75 07/01/17 09:32 O2 Sat by Pulse Oximetry (%) 97 06/30/17 21:00 Neck: Yes: Supple Cardiovascular: Yes: Regular Rate and Rhythm, S1, S2 Respiratory: Yes: CTA Bilaterally Gastrointestinal: Yes: Normal Bowel Sounds, Soft. No: Tenderness Edema: No Labs: CBC, BMP 06/30/17 06:10 06/30/17 06:10 Problem List - Problems (1) SILAS (acute kidney injury) Code(s): N17.9 - ACUTE KIDNEY FAILURE, UNSPECIFIED (2) Generalized weakness Code(s): R53.1 - WEAKNESS (3) Prostate cancer Code(s): C61 - MALIGNANT NEOPLASM OF PROSTATE (4) Toxic metabolic encephalopathy Code(s): G92 - TOXIC ENCEPHALOPATHY (5) UTI (urinary tract infection) Code(s): N39.0 - URINARY TRACT INFECTION, SITE NOT SPECIFIED Qualifiers: Urinary tract infection type: site unspecified (6) Atrial fibrillation with RVR Code(s): I48.91 - UNSPECIFIED ATRIAL FIBRILLATION (7) CVA (cerebral infarction) Code(s): I63.9 - CEREBRAL INFARCTION, UNSPECIFIED Qualifiers: Cerebral infarction mechanism: unspecified mechanism Qualified Code(s) : I63.9 - Cerebral infarction, unspecified (8) Diabetes Code(s): E11.9 - TYPE 2 DIABETES MELLITUS WITHOUT COMPLICATIONS Qualifiers: Diabetes mellitus type: type 2 Diabetes mellitus complication status: without complication (9) HTN (hypertension) Code(s): I10 - ESSENTIAL (PRIMARY) HYPERTENSION Qualifiers: Hypertension type: essential hypertension Qualified Code(s): I10 - Essential (primary) hypertension Assessment/Plan 1. UTI with toxic metabolic encephelopathy improving 2. CKD with h/o acute kidney injury (post obstructive-prostate cancer) requiring temporary HD 3. History of Digoxin toxicity - resolved 4. Permanent atrial fibrillation with variable ventricular response 5. History of hypertension 6. COPD/emphysema with history of exacerbation 7. Type 2 diabetes mellitus 8. Prostate cancer causing extrinsic ureteral compression and hydronephrosis post intervention - post bilateral stents, bladder biopsy PLAN: 1. Completed antibiotic course per C&S 2. Monitor renal function and electrolytes. 3. Continue Cardizem CD 240 qd and titrate as tolerated 4. Currently on Eliquis 5 mg BID 5. Consider ACEI or ARB once renal function stabilizes 6. Fall precaution. Continue PT and eventual SNF 7. Urology to follow Han Nowak MD
--- NOTE | 2017-07-01 10:46 | PN ---
Progress Note, Physician Chief Complaint: UTI,AMS History of Present Illness: NAD, OOB chair with Physical therapy, Alert and oriented x 3 today. - Current Medication List Current Medications: Active Medications Acetaminophen (Tylenol -) 650 mg PO Q6H PRN PRN Reason: PAIN Last Admin: 06/27/17 06:04 Dose: 650 mg Apixaban (Eliquis -) 5 mg PO BID [facility] Last Admin: 07/01/17 09:34 Dose: 5 mg Artificial Tears (Artificial Tears) 1 drop OU BID PRN PRN Reason: DRY EYES Last Admin: 06/26/17 10:19 Dose: 1 drop Bicalutamide (Casodex -) 50 mg PO DAILY [facility] Last Admin: 07/01/17 09:34 Dose: 50 mg Diltiazem HCl (Cardizem Cd -) 240 mg PO DAILY [facility] Last Admin: 07/01/17 09:34 Dose: 240 mg Donepezil HCl (Aricept -) 5 mg PO DAILY [facility] Last Admin: 07/01/17 09:34 Dose: 5 mg Nicotine (Nicoderm Patch -) 14 mg TD DAILY [facility] Last Admin: 07/01/17 09:34 Dose: 14 mg Pantoprazole Sodium (Protonix -) 40 mg PO DAILY [facility] Last Admin: 07/01/17 09:34 Dose: 40 mg Polyethylene Glycol (Miralax (For Daily Use) -) 17 gm PO DAILY [facility] Last Admin: 07/01/17 09:35 Dose: 17 gm Quetiapine Fumarate (Seroquel -) 25 mg PO BID PRN PRN Reason: ANXIETY - Objective Vital Signs: Vital Signs Temperature 97.7 F 07/01/17 09:32 Pulse Rate 92 H 07/01/17 09:32 Respiratory Rate 20 07/01/17 09:32 Blood Pressure 150/75 07/01/17 09:32 O2 Sat by Pulse Oximetry (%) 97 06/30/17 21:00 Constitutional: Yes: Well Nourished, No Distress, Calm Cardiovascular: Yes: Regular Rate and Rhythm Respiratory: Yes: Regular Gastrointestinal: Yes: Normal Bowel Sounds Musculoskeletal: Yes: WNL Extremities: Yes: WNL Edema: No Peripheral Pulses WNL: Yes Neurological: Yes: Alert, Oriented Psychiatric: Yes: Alert, Oriented Labs: CBC, BMP 06/30/17 06:10 06/30/17 06:10 INR, PTT INR 1.89 (0.82-1.09) H D 06/25/17 15:37 Problem List - Problems (1) Generalized weakness Code(s): R53.1 - WEAKNESS (2) UTI (urinary tract infection) Code(s): N39.0 - URINARY TRACT INFECTION, SITE NOT SPECIFIED Qualifiers: Urinary tract infection type: site unspecified (3) Adenocarcinoma of prostate Code(s): C61 - MALIGNANT NEOPLASM OF PROSTATE (4) Delirium Code(s): R41.0 - DISORIENTATION, UNSPECIFIED (5) Orthostatic hypotension Code(s): I95.1 - ORTHOSTATIC HYPOTENSION (6) Atrial fibrillation with RVR Code(s): I48.91 - UNSPECIFIED ATRIAL FIBRILLATION (7) Hydronephrosis Code(s): N13.30 - UNSPECIFIED HYDRONEPHROSIS Qualifiers: Hydronephrosis type: unspecified Qualified Code(s): N13.30 - Unspecified hydronephrosis Assessment/Plan -Brain MRI negative -ID consult -neurology, nephrology consult -Awaiting Psychiatry consult -Cardiology consult for evaluation of orthostatic hypotension, midodrine? -Compression stockings -Physical therapy -AC for afib -GI prophylaxis -Renal U/S-moderate right hydronephrosis, which was present on previous imaging as well. -seen by urology, recommends stent exchange -on Donepezil 5 mg now, tolerating well.
--- NOTE | 2017-07-01 10:49 | PN ---
Progress Note (short form) - Note Progress Note: h/o of adv cap h/o b/l hydro appreas stent blocked due to hydro will need stent excahnged pt will need total androgen ablation and casodex and monthly luporon if unable to recievelupron will need orchiectomy needs to maintain castrate level androgens
--- NOTE | 2017-07-01 10:53 | PN ---
Progress Note, Physician History of Present Illness: Awake, alert Answers appropriately Offers no complaints No dysuria. No suprapubic or flank pain Afebrile BC (-) MRI, RPR (-) - Current Medication List Current Medications: Active Medications Acetaminophen (Tylenol -) 650 mg PO Q6H PRN PRN Reason: PAIN Last Admin: 06/27/17 06:04 Dose: 650 mg Apixaban (Eliquis -) 5 mg PO BID [facility] Last Admin: 07/01/17 09:34 Dose: 5 mg Artificial Tears (Artificial Tears) 1 drop OU BID PRN PRN Reason: DRY EYES Last Admin: 06/26/17 10:19 Dose: 1 drop Bicalutamide (Casodex -) 50 mg PO DAILY [facility] Last Admin: 07/01/17 09:34 Dose: 50 mg Diltiazem HCl (Cardizem Cd -) 240 mg PO DAILY [facility] Last Admin: 07/01/17 09:34 Dose: 240 mg Donepezil HCl (Aricept -) 5 mg PO DAILY [facility] Last Admin: 07/01/17 09:34 Dose: 5 mg Nicotine (Nicoderm Patch -) 14 mg TD DAILY [facility] Last Admin: 07/01/17 09:34 Dose: 14 mg Pantoprazole Sodium (Protonix -) 40 mg PO DAILY [facility] Last Admin: 07/01/17 09:34 Dose: 40 mg Polyethylene Glycol (Miralax (For Daily Use) -) 17 gm PO DAILY [facility] Last Admin: 07/01/17 09:35 Dose: 17 gm Quetiapine Fumarate (Seroquel -) 25 mg PO BID PRN PRN Reason: ANXIETY - Objective Vital Signs: Vital Signs Temperature 97.7 F 07/01/17 09:32 Pulse Rate 92 H 07/01/17 09:32 Respiratory Rate 20 07/01/17 09:32 Blood Pressure 150/75 07/01/17 09:32 O2 Sat by Pulse Oximetry (%) 97 06/30/17 21:00 Constitutional: Yes: No Distress Cardiovascular: Yes: Regular Rate and Rhythm, S1, S2 Respiratory: Yes: CTA Bilaterally Gastrointestinal: Yes: Normal Bowel Sounds, Soft. No: Tenderness Genitourinary: No: CVA Tenderness - Left, CVA Tenderness - Right Edema: Yes Edema: LLE: 1+, RLE: 1+ Labs: CBC, BMP 06/30/17 06:10 06/30/17 06:10 INR, PTT INR 1.89 (0.82-1.09) H D 06/25/17 15:37 Assessment/Plan UTI Metabolic encephalopathy Off antibiotics Observe No objection to discharge from ID standpoint
--- NOTE | 2017-07-01 15:34 | CON.PSY ---
Psychiatry Consult Chief Complaint: I am trying to remember who you are. I have never seen this patient before. Spoke to patients [email or web address]. History of DEmentia admitted here from a ;local NH. Symptoms: reports: Memory Impairment - Previous Psychiatric Treatment Outpatient: None Inpatient: None - Previous Substance Abuse Treatment Outpatient: None Inpatient: None - Current Medications Current Medications: Active Medications Acetaminophen (Tylenol -) 650 mg PO Q6H PRN PRN Reason: PAIN Last Admin: 06/27/17 06:04 Dose: 650 mg Apixaban (Eliquis -) 5 mg PO BID [facility] Last Admin: 07/01/17 09:34 Dose: 5 mg Artificial Tears (Artificial Tears) 1 drop OU BID PRN PRN Reason: DRY EYES Last Admin: 06/26/17 10:19 Dose: 1 drop Bicalutamide (Casodex -) 50 mg PO DAILY [facility] Last Admin: 07/01/17 09:34 Dose: 50 mg Diltiazem HCl (Cardizem Cd -) 240 mg PO DAILY [facility] Last Admin: 07/01/17 09:34 Dose: 240 mg Donepezil HCl (Aricept -) 5 mg PO DAILY [facility] Last Admin: 07/01/17 09:34 Dose: 5 mg Nicotine (Nicoderm Patch -) 14 mg TD DAILY [facility] Last Admin: 07/01/17 09:34 Dose: 14 mg Pantoprazole Sodium (Protonix -) 40 mg PO DAILY [facility] Last Admin: 07/01/17 09:34 Dose: 40 mg Polyethylene Glycol (Miralax (For Daily Use) -) 17 gm PO DAILY [facility] Last Admin: 07/01/17 09:35 Dose: 17 gm Quetiapine Fumarate (Seroquel -) 25 mg PO BID PRN PRN Reason: ANXIETY - Allergies Allergies: Allergies Allergy/AdvReac Type Severity Reaction Status Date / Time amoxicillin trihydrate Allergy Mild Verified 06/25/17 14:33 [From Augmentin] potassium clavulanate AdvReac Unknown Verified 06/25/17 14:33 [From Augmentin] - Current Living Status Usual Living Arrangement: Half-Way - Current Mental Status Evaluation Appearance: Disheveled Attitude: Cooperative - Affect Affect: Constrictive Appropriateness: Not Appropriate - Mood Mood: Euthymic - Speech/Language Expressive: Delayed - Psychomotor Activity Psychomotor Activity: Slowed - Thought Process Thought Process: Loosening of Associations - Thought Content Hallucinations: Absent Delusions: Absent - Cognition Attention: Diminished Orientation: Time Memory, Immediate Recall: Impaired Memory, Short Term: 1/3 Memory, Remote with Promptin/3 - Concentration Serial Sevens Intact: No Simple Calculations Intact: No - Abstraction Proverb Interpretation: Impaired Judgement: Minimally Impaired - Insight Insight: Impaired - Impulse Control Impulse Control: Good Control - Suicidal Ideation Suicidal Ideation: No - Homicidal Ideation Homicidal Ideation: No Assessment/Plan 1) Patient lacks MENTAL CAPACITY to make any informed decisions about his care.
--- NOTE | 2017-07-01 16:51 | PN ---
Progress Note (short form) - Note Progress Note: Renal Follow up for CKD Pt seen and examined at the bedside awake and alert denies any complaints is confused no N/V/D Vital Signs Temperature 98.0 F 07/01/17 14:21 Pulse Rate 91 H 07/01/17 14:21 Respiratory Rate 18 07/01/17 14:21 Blood Pressure 132/72 07/01/17 14:21 O2 Sat by Pulse Oximetry (%) 95 07/01/17 09:00 Intake & Output 06/28/17 06/29/17 06/30/17 07/01/17 23:59 23:59 23:59 23:59 Intake Total 3964 528 1151 500 Output Total 400 Balance 1175 480 680 500 Gen: NAD, awake and alert CVS: RRR Lungs: CTA, no rales or wheeze Abd: soft NT/ND Ext: No edema CBC, BMP 06/30/17 06:10 06/30/17 06:10 Laboratory Tests 06/30/17 06:10 Calcium 9.2 Phosphorus 2.9 D Magnesium 2.4 Current Medications Acetaminophen (Tylenol -) 650 mg PO Q6H PRN PRN Reason: PAIN Last Admin: 06/27/17 06:04 Dose: 650 mg Apixaban (Eliquis -) 5 mg PO BID [facility] Last Admin: 07/01/17 09:34 Dose: 5 mg Artificial Tears (Artificial Tears) 1 drop OU BID PRN PRN Reason: DRY EYES Last Admin: 06/26/17 10:19 Dose: 1 drop Bicalutamide (Casodex -) 50 mg PO DAILY [facility] Last Admin: 07/01/17 09:34 Dose: 50 mg Diltiazem HCl (Cardizem Cd -) 240 mg PO DAILY [facility] Last Admin: 07/01/17 09:34 Dose: 240 mg Donepezil HCl (Aricept -) 5 mg PO DAILY [facility] Last Admin: 07/01/17 09:34 Dose: 5 mg Nicotine (Nicoderm Patch -) 14 mg TD DAILY [facility] Last Admin: 07/01/17 09:34 Dose: 14 mg Pantoprazole Sodium (Protonix -) 40 mg PO DAILY [facility] Last Admin: 07/01/17 09:34 Dose: 40 mg Polyethylene Glycol (Miralax (For Daily Use) -) 17 gm PO DAILY [facility] Last Admin: 07/01/17 09:35 Dose: 17 gm Quetiapine Fumarate (Seroquel -) 25 mg PO BID PRN PRN Reason: ANXIETY A/P 66 year old gentleman with PMhx of COPD, Diverticulitis, DM, 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 #Hx of SILAS/CKD Stage 3 Renal function stable Seen by urology, to have stent exchange on side of hydronephrosis #AMS/Delirium Continue Abx as Aricpet started on seroquel yesterday MRI w/o acute pathology #UTI/leukocytosis off Abx #Prostate CA/Obstructive uropathy urology follow up continue Casodex for prostate Ca Thank you will follow
[2017-07-02 00:09] LABS: TESTOSTERONE,TOTAL 109 ng/dL (264-916)
[2017-07-02 07:35] LABS: BASOPHIL 0.9 % (0-2.0); EOSINOPHIL 3.2 % (0-4.5); MCHC 34.1 g/dl (32.0-35.9); MEAN CELL VOLUME 90.7 fl (80-96); MEAN PLT VOLUME 7.6 fl (7.5-11.1); NEUTROPHILS 80.7 % (42.8-82.8); PLATELET COUNT 304 K/MM3 (134-434); RDW 13.3 % (11.9-15.9); WHITE BLOOD COUNT 14.4 K/mm3 (4.0-10.0)
[2017-07-02 07:45] LABS: ALBUMIN 2.7 g/dl (3.4-5.0); ANION GAP 10 (8-16); BILIRUBIN,TOTAL 0.4 mg/dL (0.2-1.0); CALCIUM 9.2 mg/dL (8.5-10.1); CO2 28 mmol/L (21-32); CREATININE 1.6 mg/dL (0.7-1.3); GLUCOSE,RANDOM 98 mg/dL (74-106); MAGNESIUM 2.4 mg/dL (1.8-2.4); PHOSPHOROUS 3.5 mg/dL (2.5-4.9); SGOT/AST 15 U/L (15-37); SGPT/ALT 16 U/L (12-78); TOT PROT 6.1 g/dl (6.4-8.2)
[2017-07-02 07:46] LABS: ALK PHOS 113 U/L (45-117)
[2017-07-02] MEDS: BICALUTAMIDE 50 MG TABLET (FP) PO SCH (11:00)
[2017-07-02] MEDS: POLYETHYLENE GLYCOL 3350 119 GM BTL PO SCH (11:00)
[2017-07-02] MEDS: DONEPEZIL HCL 5 MG TABLET (FP) PO SCH (11:00)
[2017-07-02] MEDS: NICOTINE 14 MG/24 HOURS TOPICAL PATCH TD SCH (11:00)
[2017-07-02] MEDS: APIXABAN 5 MG TABLET PO SCH ×2 (11:00→21:26)
[2017-07-02] MEDS: PANTOPRAZOLE 40 MG TABLET (FP) PO SCH (11:00)
--- NOTE | 2017-07-02 12:35 | PN ---
Progress Note, Physician Chief Complaint: Not in distress History of Present Illness: Patient was seen and examined. Awake. Baseline dementia. Chart was reviewed Denies chest pain, SOB or palpitation - Current Medication List Current Medications: Active Medications Acetaminophen (Tylenol -) 650 mg PO Q6H PRN PRN Reason: PAIN Last Admin: 06/27/17 06:04 Dose: 650 mg Apixaban (Eliquis -) 5 mg PO BID [facility] Last Admin: 07/02/17 11:00 Dose: 5 mg Artificial Tears (Artificial Tears) 1 drop OU BID PRN PRN Reason: DRY EYES Last Admin: 06/26/17 10:19 Dose: 1 drop Bicalutamide (Casodex -) 50 mg PO DAILY [facility] Last Admin: 07/02/17 11:00 Dose: 50 mg Diltiazem HCl (Cardizem Cd -) 240 mg PO DAILY [facility] Last Admin: 07/02/17 11:00 Dose: 240 mg Donepezil HCl (Aricept -) 5 mg PO DAILY [facility] Last Admin: 07/02/17 11:00 Dose: 5 mg Nicotine (Nicoderm Patch -) 14 mg TD DAILY [facility] Last Admin: 07/02/17 11:00 Dose: 14 mg Pantoprazole Sodium (Protonix -) 40 mg PO DAILY [facility] Last Admin: 07/02/17 11:00 Dose: 40 mg Polyethylene Glycol (Miralax (For Daily Use) -) 17 gm PO DAILY [facility] Last Admin: 07/02/17 11:00 Dose: 17 gm Quetiapine Fumarate (Seroquel -) 25 mg PO BID PRN PRN Reason: ANXIETY - Objective Vital Signs: Vital Signs Temperature 98.2 F 07/02/17 09:27 Pulse Rate 94 H 07/02/17 09:27 Respiratory Rate 20 07/02/17 09:27 Blood Pressure 135/79 07/02/17 09:27 O2 Sat by Pulse Oximetry (%) 96 07/01/17 21:00 Neck: Yes: Supple Cardiovascular: Yes: Pulse Irregular, S1, S2 Respiratory: Yes: CTA Bilaterally Gastrointestinal: Yes: Normal Bowel Sounds, Soft. No: Tenderness Edema: No Labs: CBC, BMP 07/02/17 06:00 07/02/17 06:00 Problem List - Problems (1) SILAS (acute kidney injury) Code(s): N17.9 - ACUTE KIDNEY FAILURE, UNSPECIFIED (2) Generalized weakness Code(s): R53.1 - WEAKNESS (3) Prostate cancer Code(s): C61 - MALIGNANT NEOPLASM OF PROSTATE (4) Toxic metabolic encephalopathy Code(s): G92 - TOXIC ENCEPHALOPATHY (5) UTI (urinary tract infection) Code(s): N39.0 - URINARY TRACT INFECTION, SITE NOT SPECIFIED Qualifiers: Urinary tract infection type: site unspecified (6) Atrial fibrillation with RVR Code(s): I48.91 - UNSPECIFIED ATRIAL FIBRILLATION (7) CVA (cerebral infarction) Code(s): I63.9 - CEREBRAL INFARCTION, UNSPECIFIED Qualifiers: Cerebral infarction mechanism: unspecified mechanism Qualified Code(s) : I63.9 - Cerebral infarction, unspecified (8) Diabetes Code(s): E11.9 - TYPE 2 DIABETES MELLITUS WITHOUT COMPLICATIONS Qualifiers: Diabetes mellitus type: type 2 Diabetes mellitus complication status: without complication (9) HTN (hypertension) Code(s): I10 - ESSENTIAL (PRIMARY) HYPERTENSION Qualifiers: Hypertension type: essential hypertension Qualified Code(s): I10 - Essential (primary) hypertension Assessment/Plan 1. UTI with toxic metabolic encephalopathy improving 2. CKD with h/o acute kidney injury (post obstructive-prostate cancer) requiring temporary HD 3. History of Digoxin toxicity - resolved 4. Permanent atrial fibrillation with variable ventricular response 5. History of hypertension 6. COPD/emphysema with history of exacerbation 7. Type 2 diabetes mellitus 8. Prostate cancer causing extrinsic ureteral compression and hydronephrosis post intervention - post bilateral stents, bladder biopsy PLAN: 1. Monitor renal function and electrolytes. 2. Continue Cardizem and titrate as tolerated 3. Currently on Eliquis 5 mg BID 4. Consider ACEI or ARB once renal function stabilizes 5. Fall precaution. Continue PT and eventual SNF 6. Urology input noted Han Nowak MD
--- NOTE | 2017-07-02 13:08 | PN ---
Progress Note, Physician Chief Complaint: UTI,AMS History of Present Illness: NAD, in bed, mental status improved - Current Medication List Current Medications: Active Medications Acetaminophen (Tylenol -) 650 mg PO Q6H PRN PRN Reason: PAIN Last Admin: 06/27/17 06:04 Dose: 650 mg Apixaban (Eliquis -) 5 mg PO BID [facility] Last Admin: 07/02/17 11:00 Dose: 5 mg Artificial Tears (Artificial Tears) 1 drop OU BID PRN PRN Reason: DRY EYES Last Admin: 06/26/17 10:19 Dose: 1 drop Bicalutamide (Casodex -) 50 mg PO DAILY [facility] Last Admin: 07/02/17 11:00 Dose: 50 mg Diltiazem HCl (Cardizem Cd -) 240 mg PO DAILY [facility] Last Admin: 07/02/17 11:00 Dose: 240 mg Donepezil HCl (Aricept -) 5 mg PO DAILY [facility] Last Admin: 07/02/17 11:00 Dose: 5 mg Nicotine (Nicoderm Patch -) 14 mg TD DAILY [facility] Last Admin: 07/02/17 11:00 Dose: 14 mg Pantoprazole Sodium (Protonix -) 40 mg PO DAILY [facility] Last Admin: 07/02/17 11:00 Dose: 40 mg Polyethylene Glycol (Miralax (For Daily Use) -) 17 gm PO DAILY [facility] Last Admin: 07/02/17 11:00 Dose: 17 gm Quetiapine Fumarate (Seroquel -) 25 mg PO BID PRN PRN Reason: ANXIETY - Objective Vital Signs: Vital Signs Temperature 98.2 F 07/02/17 09:27 Pulse Rate 94 H 07/02/17 09:27 Respiratory Rate 20 07/02/17 09:27 Blood Pressure 135/79 07/02/17 09:27 O2 Sat by Pulse Oximetry (%) 96 07/01/17 21:00 Constitutional: Yes: Well Nourished, No Distress, Calm Cardiovascular: Yes: Regular Rate and Rhythm Respiratory: Yes: Regular Musculoskeletal: Yes: WNL Extremities: Yes: WNL Edema: No Peripheral Pulses WNL: Yes Neurological: Yes: Alert Psychiatric: Yes: Alert Labs: CBC, BMP 07/02/17 06:00 07/02/17 06:00 INR, PTT INR 1.89 (0.82-1.09) H D 06/25/17 15:37 Problem List - Problems (1) Generalized weakness Code(s): R53.1 - WEAKNESS (2) UTI (urinary tract infection) Code(s): N39.0 - URINARY TRACT INFECTION, SITE NOT SPECIFIED Qualifiers: Urinary tract infection type: site unspecified (3) Adenocarcinoma of prostate Code(s): C61 - MALIGNANT NEOPLASM OF PROSTATE (4) Delirium Code(s): R41.0 - DISORIENTATION, UNSPECIFIED (5) Orthostatic hypotension Code(s): I95.1 - ORTHOSTATIC HYPOTENSION (6) Atrial fibrillation with RVR Code(s): I48.91 - UNSPECIFIED ATRIAL FIBRILLATION (7) Hydronephrosis Code(s): N13.30 - UNSPECIFIED HYDRONEPHROSIS Qualifiers: Hydronephrosis type: unspecified Qualified Code(s): N13.30 - Unspecified hydronephrosis Assessment/Plan -Brain MRI negative -ID consult -neurology, nephrology consult -Seen by psychiatry -Cardiology consult for evaluation of orthostatic hypotension, midodrine? -Compression stockings -Physical therapy -AC for afib -GI prophylaxis -Renal U/S-moderate right hydronephrosis, which was present on previous imaging as well. -seen by urology, recommends stent exchange, called urology today to confirm whether the procedure would be done during his current stay or outpatient. -on Donepezil 5 mg now, tolerating well.
--- NOTE | 2017-07-02 13:49 | PN ---
Progress Note (short form) - Note Progress Note: Renal Follow up for CKD Pt seen and examined at the bedside awake and alert denies any pain, sob, N/V/D Vital Signs Temperature 98.2 F 07/02/17 09:27 Pulse Rate 94 H 07/02/17 09:27 Respiratory Rate 20 07/02/17 09:27 Blood Pressure 135/79 07/02/17 09:27 O2 Sat by Pulse Oximetry (%) 96 07/01/17 21:00 Intake & Output 06/29/17 06/30/17 07/01/17 07/02/17 23:59 23:59 23:59 23:59 Intake Total 480 1080 1080 360 Output Total 400 Balance 247 237 1193 360 Gen: NAD, awake and alert CVS: RRR Lungs: CTA, no rales or wheeze Abd: soft NT/ND Ext: No edema CBC, BMP 07/02/17 06:00 07/02/17 06:00 Current Medications Acetaminophen (Tylenol -) 650 mg PO Q6H PRN PRN Reason: PAIN Last Admin: 06/27/17 06:04 Dose: 650 mg Apixaban (Eliquis -) 5 mg PO BID [facility] Last Admin: 07/02/17 11:00 Dose: 5 mg Artificial Tears (Artificial Tears) 1 drop OU BID PRN PRN Reason: DRY EYES Last Admin: 06/26/17 10:19 Dose: 1 drop Bicalutamide (Casodex -) 50 mg PO DAILY [facility] Last Admin: 07/02/17 11:00 Dose: 50 mg Diltiazem HCl (Cardizem Cd -) 240 mg PO DAILY [facility] Last Admin: 07/02/17 11:00 Dose: 240 mg Donepezil HCl (Aricept -) 5 mg PO DAILY [facility] Last Admin: 07/02/17 11:00 Dose: 5 mg Nicotine (Nicoderm Patch -) 14 mg TD DAILY [facility] Last Admin: 07/02/17 11:00 Dose: 14 mg Pantoprazole Sodium (Protonix -) 40 mg PO DAILY [facility] Last Admin: 07/02/17 11:00 Dose: 40 mg Polyethylene Glycol (Miralax (For Daily Use) -) 17 gm PO DAILY [facility] Last Admin: 07/02/17 11:00 Dose: 17 gm Quetiapine Fumarate (Seroquel -) 25 mg PO BID PRN PRN Reason: ANXIETY A/P 66 year old gentleman with PMhx of COPD, Diverticulitis, DM, Recent SILAS secondary to obstructive nephropathy (bladder inlet obstruction), Recently diagnosed prostate Ca who presented [place] and found to have suspected UTI and Delirium. #Hx of SILAS/CKD Stage 3 Renal function essentially stable for stent exchange by urology b/c of persistent hydronephrosis Trend BUN/Cr #AMS/Delirium Continue Abx as Aricpet started on seroquel yesterday MRI w/o acute pathology #UTI/leukocytosis off Abx #Prostate CA/Obstructive uropathy urology follow up continue Casodex for prostate Ca Thank you will follow
--- NOTE | 2017-07-02 15:13 | PN ---
Progress Note (short form) - Note Progress Note: Pt seen and examined Sleeping, woke up when aroused. chart and labs reviewed. he denies any complains. mentioned that he had a "good day" thus far. Gen: NAD, awake and alert CVS: RRR Lungs: CTA, no rales or wheeze Abd: soft NT/ND Ext: No edema Temp Pulse Resp BP Pulse Ox 97.9 F 81 20 112/58 99 07/02/17 14:35 07/02/17 14:35 07/02/17 14:35 07/02/17 14:35 07/02/17 09:00 Current Medications Generic Name Dose Route Start Last Admin Trade Name Freq PRN Reason Stop Dose Admin Acetaminophen 650 mg 06/25/17 18:23 06/27/17 06:04 Tylenol - PO 650 mg Q6H PRN Administration PAIN Apixaban 5 mg 06/25/17 22:00 07/02/17 11:00 Eliquis - PO 5 mg BID [facility] Administration Artificial Tears 1 drop 06/25/17 18:17 06/26/17 10:19 Artificial Tears OU 1 drop BID PRN Administration DRY EYES Bicalutamide 50 mg 06/26/17 10:00 07/02/17 11:00 Casodex - PO 50 mg DAILY [facility] Administration Diltiazem HCl 240 mg 06/26/17 10:00 07/02/17 11:00 Cardizem Cd - PO 240 mg DAILY [facility] Administration Donepezil HCl 5 mg 06/27/17 10:00 07/02/17 11:00 Aricept - PO 5 mg DAILY [facility] Administration Nicotine 14 mg 06/26/17 10:00 07/02/17 11:00 Nicoderm Patch - TD 14 mg DAILY [facility] Administration Pantoprazole Sodium 40 mg 06/26/17 10:00 07/02/17 11:00 Protonix - PO 40 mg DAILY [facility] Administration Polyethylene Glycol 17 gm 06/26/17 10:00 07/02/17 11:00 Miralax (For Daily Use) - PO 17 gm DAILY [facility] Administration Quetiapine Fumarate 25 mg 06/30/17 11:54 Seroquel - PO BID PRN ANXIETY CBC, BMP 07/02/17 06:00 07/02/17 06:00 Assessment/Plan: 76 yr old man with dementia, prostate cancer on casodex, AMS, afib on ac, admitted for AMS and SILAS being treated for UTI. Recent admission for similar reason w/u at that time revealed obstructive uropathy/bladder/prostate mass Bladder biopsy--chronic inflammation CT guided bx of mass c/w prostate adeno ca based on CT c/a/p and biopsy ---patient with locally advanced prostate cancer Bone scan neg. c/w Casodex--antiandrogen.To monitor LFTs monthly on casodex repeat PSA Renal/ follow-up
[2017-07-02] MEDS ORDERED: PT OWN MED DRAWER 7, Y5N ONE (20:42)
[2017-07-03 07:32] LABS: BASOPHIL 0.8 % (0-2.0); EOSINOPHIL 6.8 % (0-4.5); MCH 30.7 pg (25.7-33.7); MCHC 33.7 g/dl (32.0-35.9); MEAN CELL VOLUME 91.1 fl (80-96); MEAN PLT VOLUME 7.5 fl (7.5-11.1); NEUTROPHILS 74.2 % (42.8-82.8); PLATELET COUNT 313 K/MM3 (134-434); RDW 13.2 % (11.9-15.9); WHITE BLOOD COUNT 11.4 K/mm3 (4.0-10.0)
[2017-07-03 07:49] LABS: ANION GAP 6 (8-16); CALCIUM 9.3 mg/dL (8.5-10.1); CO2 31 mmol/L (21-32); CREATININE 1.4 mg/dL (0.7-1.3); GLUCOSE,RANDOM 88 mg/dL (74-106); PHOSPHOROUS 3.2 mg/dL (2.5-4.9)
[2017-07-03] MEDS ORDERED: PT OWN MED DRAWER 7, Y5N ONE (09:40)
[2017-07-03] MEDS: DONEPEZIL HCL 5 MG TABLET (FP) PO SCH (09:56)
[2017-07-03] MEDS: PANTOPRAZOLE 40 MG TABLET (FP) PO SCH (09:56)
[2017-07-03] MEDS: POLYETHYLENE GLYCOL 3350 119 GM BTL PO SCH (09:56)
[2017-07-03] MEDS: NICOTINE 14 MG/24 HOURS TOPICAL PATCH TD SCH (09:57)
[2017-07-03] MEDS: APIXABAN 5 MG TABLET PO SCH (09:57)
[2017-07-03] MEDS: BICALUTAMIDE 50 MG TABLET (FP) PO SCH (09:57)
--- NOTE | 2017-07-03 11:54 | PN ---
Progress Note, Physician History of Present Illness: Sensorium improved, more interactive. - Current Medication List Current Medications: Active Medications Acetaminophen (Tylenol -) 650 mg PO Q6H PRN PRN Reason: PAIN Last Admin: 06/27/17 06:04 Dose: 650 mg Apixaban (Eliquis -) 5 mg PO BID [facility] Last Admin: 07/03/17 09:57 Dose: 5 mg Artificial Tears (Artificial Tears) 1 drop OU BID PRN PRN Reason: DRY EYES Last Admin: 06/26/17 10:19 Dose: 1 drop Bicalutamide (Casodex -) 50 mg PO DAILY [facility] Last Admin: 07/03/17 09:57 Dose: 50 mg Diltiazem HCl (Cardizem Cd -) 240 mg PO DAILY [facility] Last Admin: 07/03/17 09:56 Dose: 240 mg Donepezil HCl (Aricept -) 5 mg PO DAILY [facility] Last Admin: 07/03/17 09:56 Dose: 5 mg Nicotine (Nicoderm Patch -) 14 mg TD DAILY [facility] Last Admin: 07/03/17 09:57 Dose: 14 mg Pantoprazole Sodium (Protonix -) 40 mg PO DAILY [facility] Last Admin: 07/03/17 09:56 Dose: 40 mg Polyethylene Glycol (Miralax (For Daily Use) -) 17 gm PO DAILY [facility] Last Admin: 07/02/17 11:00 Dose: 17 gm Quetiapine Fumarate (Seroquel -) 25 mg PO BID PRN PRN Reason: ANXIETY - Objective Vital Signs: Vital Signs Temperature 97.9 F 07/03/17 09:00 Pulse Rate 84 07/03/17 09:00 Respiratory Rate 20 07/03/17 09:00 Blood Pressure 120/68 07/03/17 09:00 O2 Sat by Pulse Oximetry (%) 98 07/03/17 09:00 Constitutional: Yes: No Distress, Calm Neck: Yes: Supple Cardiovascular: Yes: Pulse Irregular Respiratory: Yes: Regular, Diminished Gastrointestinal: Yes: Normal Bowel Sounds, Soft Edema: No Labs: CBC, BMP 07/03/17 06:00 07/03/17 06:00 INR, PTT INR 1.89 (0.82-1.09) H D 06/25/17 15:37 Problem List - Problems (1) Delirium Code(s): R41.0 - DISORIENTATION, UNSPECIFIED (2) Prostate cancer Code(s): C61 - MALIGNANT NEOPLASM OF PROSTATE (3) UTI (urinary tract infection) Code(s): N39.0 - URINARY TRACT INFECTION, SITE NOT SPECIFIED Qualifiers: Urinary tract infection type: site unspecified (4) Atrial fibrillation with RVR Code(s): I48.91 - UNSPECIFIED ATRIAL FIBRILLATION (5) Diabetes Code(s): E11.9 - TYPE 2 DIABETES MELLITUS WITHOUT COMPLICATIONS Qualifiers: Diabetes mellitus type: type 2 Diabetes mellitus complication status: without complication (6) Diastolic CHF Code(s): I50.30 - UNSPECIFIED DIASTOLIC (CONGESTIVE) HEART FAILURE Qualifiers : Congestive heart failure chronicity: chronic Qualified Code(s): I50.32 - Chronic diastolic (congestive) heart failure (7) HTN (hypertension) Code(s): I10 - ESSENTIAL (PRIMARY) HYPERTENSION Qualifiers: Hypertension type: essential hypertension Qualified Code(s): I10 - Essential (primary) hypertension (8) Hyperlipidemia associated with type 2 diabetes mellitus Code(s): E11.69 - TYPE 2 DIABETES MELLITUS WITH OTHER SPECIFIED COMPLICATION E78.5 - HYPERLIPIDEMIA, UNSPECIFIED (9) Gait disturbance Code(s): R26.9 - UNSPECIFIED ABNORMALITIES OF GAIT AND MOBILITY (10) Toxic metabolic encephalopathy Code(s): G92 - TOXIC ENCEPHALOPATHY Assessment/Plan 05/20/2017 Echo: Normal LV size and fxn without sig valve abnl 1. UTI with toxic metabolic encephelopathy improving 2. CKD with h/o acute kidney injury (post obstructive-prostate cancer) requiring temporary HD 3. H/o Digoxin toxicity - resolved 4. Permanent atrial fibrillation with variable ventricular response 5. History of hypertension 6. COPD/emphysema with history of exacerbation 7. Type 2 diabetes mellitus 8. Prostate cancer causing extrinsic ureteral compression and hydronephrosis post intervention - post bilateral stents, bladder biopsy PLAN: 1. Monitor renal function and electrolytes. 2. Continue Cardizem CD 240 qd and titrate as tolerated 3. Currently on Eliquis 5 mg BID, hold 1 day prior to stent exchange and resume once post-procedure hemostasis achieved 4. Consider ACEI or ARB once renal function stabilizes 5. Fall precaution. Continue PT and eventual SNF 6. Urology input noted, planned for ureteral stent exchange
--- NOTE | 2017-07-03 14:44 | PN ---
Progress Note (short form) - Note Progress Note: Renal Follow up for CKD Pt seen and examined at the bedside awake and alert no acute complaints no overnight events making urine, denies any flank pain Vital Signs Temperature 97.9 F 07/03/17 09:00 Pulse Rate 84 07/03/17 09:00 Respiratory Rate 20 07/03/17 09:00 Blood Pressure 120/68 07/03/17 09:00 O2 Sat by Pulse Oximetry (%) 98 07/03/17 09:00 Intake & Output 06/30/17 07/01/17 07/02/17 07/03/17 23:59 23:59 23:59 23:59 Intake Total 1080 1080 790 Output Total 400 Balance 680 1080 790 Gen: NAD, awake and alert CVS: RRR Lungs: CTA, no rales or wheeze Abd: soft NT/ND Ext: No edema CBC, BMP 07/03/17 06:00 07/03/17 06:00 Current Medications Acetaminophen (Tylenol -) 650 mg PO Q6H PRN PRN Reason: PAIN Last Admin: 06/27/17 06:04 Dose: 650 mg Apixaban (Eliquis -) 5 mg PO BID [facility] Last Admin: 07/03/17 09:57 Dose: 5 mg Artificial Tears (Artificial Tears) 1 drop OU BID PRN PRN Reason: DRY EYES Last Admin: 06/26/17 10:19 Dose: 1 drop Bicalutamide (Casodex -) 50 mg PO DAILY [facility] Last Admin: 07/03/17 09:57 Dose: 50 mg Diltiazem HCl (Cardizem Cd -) 240 mg PO DAILY [facility] Last Admin: 07/03/17 09:56 Dose: 240 mg Donepezil HCl (Aricept -) 5 mg PO DAILY [facility] Last Admin: 07/03/17 09:56 Dose: 5 mg Nicotine (Nicoderm Patch -) 14 mg TD DAILY [facility] Last Admin: 07/03/17 09:57 Dose: 14 mg Pantoprazole Sodium (Protonix -) 40 mg PO DAILY [facility] Last Admin: 07/03/17 09:56 Dose: 40 mg Polyethylene Glycol (Miralax (For Daily Use) -) 17 gm PO DAILY [facility] Last Admin: 07/02/17 11:00 Dose: 17 gm Quetiapine Fumarate (Seroquel -) 25 mg PO BID PRN PRN Reason: ANXIETY A/P 66 year old gentleman with PMhx of COPD, Diverticulitis, DM, Recent SILAS secondary to obstructive nephropathy (bladder inlet obstruction), Recently diagnosed prostate Ca who presented with AMS at the [facility] and found to have suspected UTI and Delirium. #Hx of SILAS/CKD Stage 3 Renal function remains stable, pt is non-oliguric continue to trend BUN/Cr Urology follow up for stent exchange, inpatient vs. outpatient #AMS/Delirium on seroquel MRI w/o acute pathology #UTI/leukocytosis off Abx #Prostate CA/Obstructive uropathy urology follow up continue Casodex for prostate Ca Thank you will follow
--- NOTE | 2017-07-03 15:20 | PN ---
Progress Note, Physician Chief Complaint: UTI,AMS History of Present Illness: NAD, in bed, mental status improved -awaiting urology's decision to do stenting inpatient or outpatient. - Current Medication List Current Medications: Active Medications Acetaminophen (Tylenol -) 650 mg PO Q6H PRN PRN Reason: PAIN Last Admin: 06/27/17 06:04 Dose: 650 mg Apixaban (Eliquis -) 5 mg PO BID [facility] Last Admin: 07/03/17 09:57 Dose: 5 mg Artificial Tears (Artificial Tears) 1 drop OU BID PRN PRN Reason: DRY EYES Last Admin: 06/26/17 10:19 Dose: 1 drop Bicalutamide (Casodex -) 50 mg PO DAILY [facility] Last Admin: 07/03/17 09:57 Dose: 50 mg Diltiazem HCl (Cardizem Cd -) 240 mg PO DAILY [facility] Last Admin: 07/03/17 09:56 Dose: 240 mg Donepezil HCl (Aricept -) 5 mg PO DAILY [facility] Last Admin: 07/03/17 09:56 Dose: 5 mg Nicotine (Nicoderm Patch -) 14 mg TD DAILY [facility] Last Admin: 07/03/17 09:57 Dose: 14 mg Pantoprazole Sodium (Protonix -) 40 mg PO DAILY [facility] Last Admin: 07/03/17 09:56 Dose: 40 mg Polyethylene Glycol (Miralax (For Daily Use) -) 17 gm PO DAILY [facility] Last Admin: 07/02/17 11:00 Dose: 17 gm Quetiapine Fumarate (Seroquel -) 25 mg PO BID PRN PRN Reason: ANXIETY - Objective Vital Signs: Vital Signs Temperature 98.0 F 07/03/17 14:57 Pulse Rate 78 07/03/17 14:57 Respiratory Rate 20 07/03/17 14:57 Blood Pressure 129/66 07/03/17 14:57 O2 Sat by Pulse Oximetry (%) 98 07/03/17 09:00 Constitutional: Yes: Well Nourished, No Distress, Calm Cardiovascular: Yes: Regular Rate and Rhythm Respiratory: Yes: Regular Musculoskeletal: Yes: WNL Extremities: Yes: WNL Edema: No Peripheral Pulses WNL: Yes Neurological: Yes: Alert Psychiatric: Yes: Alert Labs: CBC, BMP 07/03/17 06:00 07/03/17 06:00 INR, PTT INR 1.89 (0.82-1.09) H D 06/25/17 15:37 Problem List - Problems (1) Generalized weakness Assessment/Plan: -improved -Physical therapy Code(s): R53.1 - WEAKNESS (2) UTI (urinary tract infection) Assessment/Plan: -UA/UC negative -ID consult -received 5 days of IV abx Code(s): N39.0 - URINARY TRACT INFECTION, SITE NOT SPECIFIED Qualifiers: Urinary tract infection type: site unspecified (3) Adenocarcinoma of prostate Assessment/Plan: -on casodex -recommended Lupron by urology monthly Code(s): C61 - MALIGNANT NEOPLASM OF PROSTATE (4) Delirium Assessment/Plan: -Improved -Brain MRI negative -Seen by neurology and psychiatry -on Donepezil 5mg , tolerating well Code(s): R41.0 - DISORIENTATION, UNSPECIFIED (5) Orthostatic hypotension Assessment/Plan: -improved with compression stockings -seen by cardiology Code(s): I95.1 - ORTHOSTATIC HYPOTENSION (6) Atrial fibrillation with RVR Assessment/Plan: -chronic, controlled -on Eliquis Code(s): I48.91 - UNSPECIFIED ATRIAL FIBRILLATION (7) Hydronephrosis Assessment/Plan: -Renal U/S-moderate right hydronephrosis, which was present on previous imaging as well. -awaiting urology's decision to do the procedure inpatient or outpatient Code(s): N13.30 - UNSPECIFIED HYDRONEPHROSIS Qualifiers: Hydronephrosis type: unspecified Qualified Code(s): N13.30 - Unspecified hydronephrosis Assessment/Plan See problem list.
--- NOTE | 2017-07-03 19:38 | CONS ---
DATE OF CONSULTATION: 06/29/2017 The patient is well known to my office. He is a 76-year-old male, resident of a [facility], with past significant history of advanced prostate cancer. He is status post bilateral JJ stent insertion due to obstructive azotemia. He was found to have a large retrovesical mass, which was biopsied by Interventional Radiology. This came back as adenocarcinoma, PSA positive stain. Patient also has history of COPD as well as atrial fibrillation, diabetes, diverticulitis, high blood pressure, dyslipidemia. In the emergency room, he was confused and lethargic. He is unaware of time, place, and person. In the [facility], the attendant claimed that he was hallucinating and falling more frequently than usual. Patient denies any pain. He is allergic to AMOXICILLIN. He does smoke cigarettes. In the emergency room, he was given Protonix, MiraLax, Artificial Tears, Tylenol, Cardizem, and Levaquin. Physical exam basically revealed a soft abdomen with urinary incontinence, his bladder was slightly distended. He was afebrile. His temperature was 98.8. His blood pressure is 104/63. His white count was 15,600, hemoglobin 11.4, hematocrit 33.3, platelets 290. His BUN was 25, creatinine 1.6. His random glucose is 111. The urine revealed positive blood, negative nitrates. The patient underwent a previous CT scan on his previous admission. This had revealed bilateral hydroureteronephrosis secondary to lower ureteral obstruction from advanced prostate cancer. A renal ultrasound performed on June 28, 2017, revealed moderate right renal hydronephrosis without gross interval change since prior exam. A stent is present. There was splenomegaly measuring 17 cm in sagittal length. Presently the patient's urine culture as well as blood culture were both negative. His latest BUN 22 and creatinine 1.4. His latest white count is 11. A total testosterone was 109, free testosterone was 102, his PSA is pending. A bone scan performed earlier this year was negative for metastasis. Impression at present is locally invasive prostate cancer. Should have castrate-level testosterone. Presently his testosterone is still positive. Will need total androgen ablation including Casodex as well as an LH/RH analogue given monthly or every 4 months. This can be done at the [facility] or as an outpatient. You must have a testosterone of less than 40 to achieve a castrate level which will shrink and control the prostate cancer. Presently he is on bicalutamide 50 mg daily. This is inhibiting the adrenal androgens but the testicular androgens will need an LH/RH analogue MARION and the sequence of events will be castrate-level testosterone and a PSA in the 0 range. Will recommend this to family and PMD. LUKE ORTEGA M.D. [id number]
[2017-07-03] MEDS: HEPARIN NA (PORCINE) 5,000 UNITS/ML 1ML VIAL SQ SCH (21:57)
[2017-07-04 03:20] LABS: URINE BILIRUBIN 2+ (NEGATIVE); URINE BLOOD 3+ (NEGATIVE); URINE GLUCOSE (UA) NEGATIVE (NEGATIVE); URINE KETONE TRACE (NEGATIVE)
[2017-07-04 03:25] LABS: URINE APPEARANCE TURBID; URINE COLOR AMBER; URINE LEUK ESTERASE 3+ (NEGATIVE); URINE NITRITE POSITIVE (NEGATIVE); URINE PROTEIN 3+ (NEGATIVE)
[2017-07-04 03:40] LABS: URINE BACTERIA MODERATE /hpf (NONE SEEN); URINE MUCUS FEW; URINE RBC 939 /hpf (0-3); URINE WBC 523 /hpf (3-5)
[2017-07-04 07:51] LABS: ANION GAP 9 (8-16); CALCIUM 9.1 mg/dL (8.5-10.1); CO2 30 mmol/L (21-32); CREATININE 1.3 mg/dL (0.7-1.3); GLUCOSE,RANDOM 90 mg/dL (74-106); MAGNESIUM 2.2 mg/dL (1.8-2.4)
[2017-07-04] MEDS: HEPARIN NA (PORCINE) 5,000 UNITS/ML 1ML VIAL SQ SCH ×2 (09:05→22:57)
[2017-07-04] MEDS: DONEPEZIL HCL 5 MG TABLET (FP) PO SCH (09:05)
[2017-07-04] MEDS: PANTOPRAZOLE 40 MG TABLET (FP) PO SCH (09:05)
[2017-07-04] MEDS: POLYETHYLENE GLYCOL 3350 119 GM BTL PO SCH (09:06)
[2017-07-04] MEDS: NICOTINE 14 MG/24 HOURS TOPICAL PATCH TD SCH (09:11)
[2017-07-04] MEDS ORDERED: PT OWN MED DRAWER 7, Y5N ONE (09:57)
[2017-07-04] MEDS: BICALUTAMIDE 50 MG TABLET (FP) PO SCH (10:00)
[2017-07-04] MEDS: APIXABAN 5 MG TABLET PO SCH (10:04)
--- NOTE | 2017-07-04 10:04 | PN ---
Progress Note, Physician History of Present Illness: No complaints. - Current Medication List Current Medications: Active Medications Acetaminophen (Tylenol -) 650 mg PO Q6H PRN PRN Reason: PAIN Last Admin: 06/27/17 06:04 Dose: 650 mg Artificial Tears (Artificial Tears) 1 drop OU BID PRN PRN Reason: DRY EYES Last Admin: 06/26/17 10:19 Dose: 1 drop Bicalutamide (Casodex -) 50 mg PO DAILY [facility] Last Admin: 07/03/17 09:57 Dose: 50 mg Diltiazem HCl (Cardizem Cd -) 240 mg PO DAILY [facility] Last Admin: 07/04/17 09:06 Dose: 240 mg Donepezil HCl (Aricept -) 5 mg PO DAILY [facility] Last Admin: 07/04/17 09:05 Dose: 5 mg Heparin Sodium (Porcine) (Heparin -) 5,000 unit SQ BID [facility] Last Admin: 07/04/17 09:05 Dose: 5,000 unit Nicotine (Nicoderm Patch -) 14 mg TD DAILY [facility] Last Admin: 07/04/17 09:11 Dose: 14 mg Pantoprazole Sodium (Protonix -) 40 mg PO DAILY [facility] Last Admin: 07/04/17 09:05 Dose: 40 mg Polyethylene Glycol (Miralax (For Daily Use) -) 17 gm PO DAILY [facility] Last Admin: 07/04/17 09:06 Dose: 17 gm Quetiapine Fumarate (Seroquel -) 25 mg PO BID PRN PRN Reason: ANXIETY - Objective Vital Signs: Vital Signs Temperature 97.7 F 07/04/17 05:58 Pulse Rate 80 07/04/17 05:58 Respiratory Rate 18 07/04/17 05:58 Blood Pressure 129/67 07/04/17 05:58 O2 Sat by Pulse Oximetry (%) 97 07/03/17 21:00 Constitutional: Yes: No Distress, Calm Neck: Yes: Supple Cardiovascular: Yes: Pulse Irregular Respiratory: Yes: Regular, Diminished Gastrointestinal: Yes: Normal Bowel Sounds, Soft Edema: No Labs: CBC, BMP 07/03/17 06:00 07/04/17 06:00 INR, PTT INR 1.89 (0.82-1.09) H D 06/25/17 15:37 - ....Imaging Cat Scan: Report Reviewed (Right mild-mod hydronephrosis) Problem List - Problems (1) Delirium Code(s): R41.0 - DISORIENTATION, UNSPECIFIED (2) Prostate cancer Code(s): C61 - MALIGNANT NEOPLASM OF PROSTATE (3) UTI (urinary tract infection) Code(s): N39.0 - URINARY TRACT INFECTION, SITE NOT SPECIFIED Qualifiers: Urinary tract infection type: site unspecified (4) Atrial fibrillation with RVR Code(s): I48.91 - UNSPECIFIED ATRIAL FIBRILLATION (5) Diabetes Code(s): E11.9 - TYPE 2 DIABETES MELLITUS WITHOUT COMPLICATIONS Qualifiers: Diabetes mellitus type: type 2 Diabetes mellitus complication status: without complication (6) Diastolic CHF Code(s): I50.30 - UNSPECIFIED DIASTOLIC (CONGESTIVE) HEART FAILURE Qualifiers : Congestive heart failure chronicity: chronic Qualified Code(s): I50.32 - Chronic diastolic (congestive) heart failure (7) HTN (hypertension) Code(s): I10 - ESSENTIAL (PRIMARY) HYPERTENSION Qualifiers: Hypertension type: essential hypertension Qualified Code(s): I10 - Essential (primary) hypertension (8) Hyperlipidemia associated with type 2 diabetes mellitus Code(s): E11.69 - TYPE 2 DIABETES MELLITUS WITH OTHER SPECIFIED COMPLICATION E78.5 - HYPERLIPIDEMIA, UNSPECIFIED (9) Gait disturbance Code(s): R26.9 - UNSPECIFIED ABNORMALITIES OF GAIT AND MOBILITY (10) Toxic metabolic encephalopathy Code(s): G92 - TOXIC ENCEPHALOPATHY (11) Hydronephrosis Code(s): N13.30 - UNSPECIFIED HYDRONEPHROSIS Qualifiers: Hydronephrosis type: unspecified Qualified Code(s): N13.30 - Unspecified hydronephrosis Assessment/Plan 05/20/2017 Echo: Normal LV size and fxn without sig valve abnl 1. UTI with toxic metabolic encephelopathy improving 2. CKD with h/o acute kidney injury (post obstructive-prostate cancer) requiring temporary HD 3. H/o Digoxin toxicity - resolved 4. Permanent atrial fibrillation with variable ventricular response 5. History of hypertension 6. COPD/emphysema with history of exacerbation 7. Type 2 diabetes mellitus 8. Prostate cancer causing extrinsic ureteral compression and hydronephrosis post intervention - post bilateral stents, bladder biopsy PLAN: 1. Monitor renal function and electrolytes. 2. Continue Cardizem CD 240 qd and titrate as tolerated 3. Currently off Eliquis 5 mg BID and on heparin sq, Eliquis held prior to stent exchange and to resume once post-procedure hemostasis achieved 4. Consider ACEI or ARB once renal function stabilizes 5. Fall precaution. Continue PT and eventual SNF 6. Urology input noted, planned for ureteral stent exchange
--- NOTE | 2017-07-04 10:30 | PN ---
Progress Note, Physician Chief Complaint: UTI,AMS History of Present Illness: NAD, in bed, mental status improved Going for ureteral stent exchange in AM Eliquis on hold Heparin SQ BID - Current Medication List Current Medications: Active Medications Acetaminophen (Tylenol -) 650 mg PO Q6H PRN PRN Reason: PAIN Last Admin: 06/27/17 06:04 Dose: 650 mg Artificial Tears (Artificial Tears) 1 drop OU BID PRN PRN Reason: DRY EYES Last Admin: 06/26/17 10:19 Dose: 1 drop Bicalutamide (Casodex -) 50 mg PO DAILY [facility] Last Admin: 07/03/17 09:57 Dose: 50 mg Diltiazem HCl (Cardizem Cd -) 240 mg PO DAILY [facility] Last Admin: 07/04/17 09:06 Dose: 240 mg Donepezil HCl (Aricept -) 5 mg PO DAILY [facility] Last Admin: 07/04/17 09:05 Dose: 5 mg Heparin Sodium (Porcine) (Heparin -) 5,000 unit SQ BID [facility] Last Admin: 07/04/17 09:05 Dose: 5,000 unit Nicotine (Nicoderm Patch -) 14 mg TD DAILY [facility] Last Admin: 07/04/17 09:11 Dose: 14 mg Pantoprazole Sodium (Protonix -) 40 mg PO DAILY [facility] Last Admin: 07/04/17 09:05 Dose: 40 mg Polyethylene Glycol (Miralax (For Daily Use) -) 17 gm PO DAILY [facility] Last Admin: 07/04/17 09:06 Dose: 17 gm Quetiapine Fumarate (Seroquel -) 25 mg PO BID PRN PRN Reason: ANXIETY - Objective Vital Signs: Vital Signs Temperature 98.1 F 07/04/17 10:00 Pulse Rate 82 07/04/17 10:00 Respiratory Rate 20 07/04/17 10:00 Blood Pressure 120/64 07/04/17 10:00 O2 Sat by Pulse Oximetry (%) 96 07/04/17 10:00 Constitutional: Yes: Well Nourished, No Distress, Calm Cardiovascular: Yes: Pulse Irregular Respiratory: Yes: Regular Musculoskeletal: Yes: WNL Extremities: Yes: WNL Edema: No Peripheral Pulses WNL: Yes Neurological: Yes: Alert, Oriented Psychiatric: Yes: Alert, Oriented Labs: CBC, BMP 07/03/17 06:00 07/04/17 06:00 INR, PTT INR 1.89 (0.82-1.09) H D 06/25/17 15:37 Problem List - Problems (1) Generalized weakness Assessment/Plan: -improved -Physical therapy Code(s): R53.1 - WEAKNESS (2) Adenocarcinoma of prostate Assessment/Plan: -on casodex -recommended Lupron by urology monthly Code(s): C61 - MALIGNANT NEOPLASM OF PROSTATE (3) Delirium Assessment/Plan: -Improved -Brain MRI negative -Seen by neurology and psychiatry -on Donepezil 5mg , tolerating well Code(s): R41.0 - DISORIENTATION, UNSPECIFIED (4) Orthostatic hypotension Assessment/Plan: -improved with compression stockings -seen by cardiology Code(s): I95.1 - ORTHOSTATIC HYPOTENSION (5) Atrial fibrillation with RVR Assessment/Plan: -chronic, controlled -Eliquis on hold, on Heparin SQ BID Code(s): I48.91 - UNSPECIFIED ATRIAL FIBRILLATION (6) Hydronephrosis Assessment/Plan: -Renal U/S-moderate right hydronephrosis, which was present on previous imaging as well. -Right ureteral stent in AM -eliquis on hold -Heparin SQ BID Code(s): N13.30 - UNSPECIFIED HYDRONEPHROSIS Qualifiers: Hydronephrosis type: unspecified Qualified Code(s): N13.30 - Unspecified hydronephrosis Assessment/Plan exchange right ureteral stent and plan d/c to SNF/NH closer to where daughter lives.
--- NOTE | 2017-07-04 16:38 | PN ---
Progress Note (short form) - Note Progress Note: Renal Follow up for CKD Pt seen and examined at the bedside awake and alert no acute complaints no overnight events Vital Signs Temperature 97.6 F 07/04/17 14:37 Pulse Rate 77 07/04/17 14:37 Respiratory Rate 20 07/04/17 14:37 Blood Pressure 137/73 07/04/17 14:37 O2 Sat by Pulse Oximetry (%) 96 07/04/17 10:00 Intake & Output 07/01/17 07/02/17 07/03/17 07/04/17 23:59 23:59 23:59 23:59 Intake Total 1080 790 0 210 Output Total 200 Balance 1080 790 0 10 Gen: NAD, awake and alert CVS: RRR Lungs: CTA, no rales or wheeze Abd: soft NT/ND Ext: No edema CBC, BMP 07/03/17 06:00 07/04/17 06:00 Current Medications Acetaminophen (Tylenol -) 650 mg PO Q6H PRN PRN Reason: PAIN Last Admin: 06/27/17 06:04 Dose: 650 mg Artificial Tears (Artificial Tears) 1 drop OU BID PRN PRN Reason: DRY EYES Last Admin: 06/26/17 10:19 Dose: 1 drop Bicalutamide (Casodex -) 50 mg PO DAILY [facility] Last Admin: 07/04/17 10:00 Dose: 50 mg Diltiazem HCl (Cardizem Cd -) 240 mg PO DAILY [facility] Last Admin: 07/04/17 09:06 Dose: 240 mg Donepezil HCl (Aricept -) 5 mg PO DAILY [facility] Last Admin: 07/04/17 09:05 Dose: 5 mg Heparin Sodium (Porcine) (Heparin -) 5,000 unit SQ BID [facility] Last Admin: 07/04/17 09:05 Dose: 5,000 unit Nicotine (Nicoderm Patch -) 14 mg TD DAILY [facility] Last Admin: 07/04/17 09:11 Dose: 14 mg Pantoprazole Sodium (Protonix -) 40 mg PO DAILY [facility] Last Admin: 07/04/17 09:05 Dose: 40 mg Polyethylene Glycol (Miralax (For Daily Use) -) 17 gm PO DAILY [facility] Last Admin: 07/04/17 09:06 Dose: 17 gm Quetiapine Fumarate (Seroquel -) 25 mg PO BID PRN PRN Reason: ANXIETY A/P 66 year old gentleman with PMhx of COPD, Diverticulitis, DM, 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 #Hx of SILAS/CKD Stage 3 Renal function remains stable, pt is non-oliguric Repeat imaging of the kidney shows a persistent hydronephrosis for stent exchange tomorrow per Trend BUN/cr #AMS/Delirium on seroquel MRI w/o acute pathology #UTI/leukocytosis off Abx #Prostate CA/Obstructive uropathy urology follow up continue Casodex for prostate Ca Thank you will follow
--- NOTE | 2017-07-04 23:03 | PN ---
Progress Note (short form) - Note Progress Note: pt. cap locally advanced s/p gloria. jj stents and rt. hydro. pt. also presents with urinary incontenence with poss. overflow. will go for exchange of rt. jj stents and poss prostate vaporization. in am
--- NOTE | 2017-07-04 23:08 | HOSP ---
Subjective - Review of Symptoms Events since last encounter: Received page from RN about witnessed fall. Chart reviewed. Pt has history of Afib on anticoagulation. Patient seen and examined. Witness was [employer] Felix. Patient states that he was escorted to the bathroom without difficulty. When walking back from the bathroom to his bed he gradually slid and landed sitting on the floor without head injury. He was able to pick himself off the floor without difficulty. Prior to fall he denies palpitations, LOC, light- headedness. He states the fall was purely mechanical. Currently patient is completely asypmtomatic. Denies headache, back pain, hip pain, leg pain, visual changes, CP, SOB. Physical Examination Vital Signs: Vital Signs Temperature 97.8 F 07/04/17 16:51 Pulse Rate 77 07/04/17 16:51 Respiratory Rate 18 07/04/17 21:00 Blood Pressure 123/65 07/04/17 16:51 O2 Sat by Pulse Oximetry (%) 95 07/04/17 21:00 GEN: AAOx3, No distress, lying comfortable HEENT: PERRLA, EOMi CV: S1, S2, irregularly irregular rhythm, no murmurs LUNG: CTABL ABD: Soft, NT, ND, normoactive BS MSK: No edema, no erythema, no bruising, no point tenderness in hips/spine/arms/ legs NEURO: Full neuro exam was performed. CN 2-12 intact. Facial symmetry noted. Sensation is equal and intact to face/body bilaterally, MSK 5/5, Reflexes 2+ Labs: CBC, BMP 07/03/17 06:00 07/04/17 06:00 Hospitalist Encounter Assessment: Pt is a 76yo M hx of Afib on anticoagulation who had a mechanical fall this evening. Vitals were stable after encounter. Patient did not hit his head. Patient had no symptoms prior to fall, was purely mechanical. Patient is currently asymptomatic. Patient is fully alert and oriented. Full head to toe neurological exam was performed, with no focal findings. No concern for bleed. There is no indication for imaging at this time. Fall risk precautions ordered. If the patient shows signs of neurological changes, will recommend CT head. Case d/w Dr. Calderon Visit type - Emergency Visit Emergency Visit: No - New Patient This patient is new to me today: Yes Date on this admission: 07/04/17 - Critical Care Critical Care patient: No
[2017-07-05 07:36] LABS: BASOPHIL 0.8 % (0-2.0); EOSINOPHIL 4.2 % (0-4.5); MCH 31.3 pg (25.7-33.7); MCHC 34.3 g/dl (32.0-35.9); MEAN CELL VOLUME 91.1 fl (80-96); MEAN PLT VOLUME 7.6 fl (7.5-11.1); NEUTROPHILS 78.4 % (42.8-82.8); PLATELET COUNT 320 K/MM3 (134-434); RDW 13.5 % (11.9-15.9); WHITE BLOOD COUNT 13.4 K/mm3 (4.0-10.0)
[2017-07-05 07:59] LABS: ALBUMIN 2.7 g/dl (3.4-5.0); ALK PHOS 122 U/L (45-117); ANION GAP 10 (8-16); BILIRUBIN,TOTAL 0.5 mg/dL (0.2-1.0); CALCIUM 9.2 mg/dL (8.5-10.1); CO2 28 mmol/L (21-32); CREATININE 1.6 mg/dL (0.7-1.3); GLUCOSE,RANDOM 96 mg/dL (74-106); MAGNESIUM 2.2 mg/dL (1.8-2.4); PHOSPHOROUS 3.4 mg/dL (2.5-4.9); SGOT/AST 18 U/L (15-37); SGPT/ALT 25 U/L (12-78); TOT PROT 5.9 g/dl (6.4-8.2)
--- NOTE | 2017-07-05 09:47 | PN ---
Progress Note (short form) - Note Progress Note: Pt seen and examined sleeping Chart reviewed. All consults noted. Gen: NAD,sleepy CVS: RRR Lungs: CTA, no rales or wheeze Abd: soft NT/ND Ext: No edema Last Vital Signs Temp Pulse Resp BP Pulse Ox 97.5 F L 82 18 145/69 100 07/05/17 09:00 07/05/17 09:00 07/05/17 09:00 07/05/17 09:00 07/05/17 09:00 CBC, BMP 07/05/17 06:00 07/05/17 06:00 Current Medications Generic Name Dose Route Start Last Admin Trade Name Freq PRN Reason Stop Dose Admin Acetaminophen 650 mg 06/25/17 18:23 06/27/17 06:04 Tylenol - PO 650 mg Q6H PRN Administration PAIN Artificial Tears 1 drop 06/25/17 18:17 06/26/17 10:19 Artificial Tears OU 1 drop BID PRN Administration DRY EYES Bicalutamide 50 mg 06/26/17 10:00 07/04/17 10:00 Casodex - PO 50 mg DAILY [facility] Administration Diltiazem HCl 240 mg 06/26/17 10:00 07/04/17 09:06 Cardizem Cd - PO 240 mg DAILY [facility] Administration Donepezil HCl 5 mg 06/27/17 10:00 07/04/17 09:05 Aricept - PO 5 mg DAILY [facility] Administration Heparin Sodium (Porcine) 5,000 unit 07/03/17 22:00 07/04/17 22:57 Heparin - SQ Not Given BID [facility] Nicotine 14 mg 06/26/17 10:00 07/04/17 09:11 Nicoderm Patch - TD 14 mg DAILY [facility] Administration Pantoprazole Sodium 40 mg 06/26/17 10:00 07/04/17 09:05 Protonix - PO 40 mg DAILY [facility] Administration Polyethylene Glycol 17 gm 06/26/17 10:00 07/04/17 09:06 Miralax (For Daily Use) - PO 17 gm DAILY [facility] Administration Quetiapine Fumarate 25 mg 06/30/17 11:54 Seroquel - PO BID PRN ANXIETY Assessment/Plan: 76 yr old man with dementia, prostate cancer on casodex, AMS, afib on ac, admitted for AMS and SILAS being treated for UTI. Locally advanced Prostate ca. On casodex Noted consult, for Leupron For procedure today
[2017-07-05] MEDS: NICOTINE 14 MG/24 HOURS TOPICAL PATCH TD SCH (10:51)
[2017-07-05] MEDS: BICALUTAMIDE 50 MG TABLET (FP) PO SCH (10:51)
[2017-07-05] MEDS: DONEPEZIL HCL 5 MG TABLET (FP) PO SCH (10:53)
[2017-07-05] MEDS: PANTOPRAZOLE 40 MG TABLET (FP) PO SCH (10:54)
[2017-07-05] MEDS: POLYETHYLENE GLYCOL 3350 119 GM BTL PO SCH (10:54)
[2017-07-05] MEDS: HEPARIN NA (PORCINE) 5,000 UNITS/ML 1ML VIAL SQ SCH (10:54)
[2017-07-05] MEDS: ARTIFICIAL TEARS (POLYVINYL ALCOHOL 1.4%) OPTH DROPS OU PRN (10:55)
--- NOTE | 2017-07-05 11:30 | PN ---
Progress Note (short form) - Note Progress Note: HAD LOND D/W WITH DAUGHTER AND PT PT FOR OR TODAY WILL NEED TOTAL ANDROGEN ABLATION PSA 17 IF UNABLE TO RECIEVE LUPRON THEN WILL NEED ORCHIECTOMY PT MAY COME TO OFFICE TO RECIEVE LUPRON IF NOT ADMITTED TO HOSPITAL OR SNF. PT FOR STENT X CHANGE AND TUVP
--- NOTE | 2017-07-05 14:31 | PN ---
Progress Note, Physician History of Present Illness: No complaints. Await ureteral stent exchange. - Current Medication List Current Medications: Active Medications Acetaminophen (Tylenol -) 650 mg PO Q6H PRN PRN Reason: PAIN Last Admin: 06/27/17 06:04 Dose: 650 mg Artificial Tears (Artificial Tears) 1 drop OU BID PRN PRN Reason: DRY EYES Last Admin: 07/05/17 10:55 Dose: 1 drop Bicalutamide (Casodex -) 50 mg PO DAILY [facility] Last Admin: 07/05/17 10:51 Dose: 50 mg Diltiazem HCl (Cardizem Cd -) 240 mg PO DAILY [facility] Last Admin: 07/05/17 10:53 Dose: 240 mg Donepezil HCl (Aricept -) 5 mg PO DAILY [facility] Last Admin: 07/05/17 10:53 Dose: 5 mg Heparin Sodium (Porcine) (Heparin -) 5,000 unit SQ BID [facility] Last Admin: 07/05/17 10:54 Dose: Not Given Nicotine (Nicoderm Patch -) 14 mg TD DAILY [facility] Last Admin: 07/05/17 10:51 Dose: 14 mg Pantoprazole Sodium (Protonix -) 40 mg PO DAILY [facility] Last Admin: 07/05/17 10:54 Dose: 40 mg Polyethylene Glycol (Miralax (For Daily Use) -) 17 gm PO DAILY [facility] Last Admin: 07/05/17 10:54 Dose: Not Given Quetiapine Fumarate (Seroquel -) 25 mg PO BID PRN PRN Reason: ANXIETY - Objective Vital Signs: Vital Signs Temperature 97.5 F L 07/05/17 09:00 Pulse Rate 82 07/05/17 09:00 Respiratory Rate 18 07/05/17 09:00 Blood Pressure 145/69 07/05/17 09:00 O2 Sat by Pulse Oximetry (%) 100 07/05/17 09:00 Constitutional: Yes: No Distress, Calm Neck: Yes: Supple Cardiovascular: Yes: Pulse Irregular Respiratory: Yes: Regular, Diminished Gastrointestinal: Yes: Soft, Hypoactive Bowel Sounds Edema: No Labs: CBC, BMP 07/05/17 06:00 07/05/17 06:00 INR, PTT INR 1.89 (0.82-1.09) H D 06/25/17 15:37 Problem List - Problems (1) Prostate cancer Code(s): C61 - MALIGNANT NEOPLASM OF PROSTATE (2) UTI (urinary tract infection) Code(s): N39.0 - URINARY TRACT INFECTION, SITE NOT SPECIFIED Qualifiers: Urinary tract infection type: site unspecified (3) Atrial fibrillation with RVR Code(s): I48.91 - UNSPECIFIED ATRIAL FIBRILLATION (4) Diabetes Code(s): E11.9 - TYPE 2 DIABETES MELLITUS WITHOUT COMPLICATIONS Qualifiers: Diabetes mellitus type: type 2 Diabetes mellitus complication status: without complication (5) Diastolic CHF Code(s): I50.30 - UNSPECIFIED DIASTOLIC (CONGESTIVE) HEART FAILURE Qualifiers : Congestive heart failure chronicity: chronic Qualified Code(s): I50.32 - Chronic diastolic (congestive) heart failure (6) HTN (hypertension) Code(s): I10 - ESSENTIAL (PRIMARY) HYPERTENSION Qualifiers: Hypertension type: essential hypertension Qualified Code(s): I10 - Essential (primary) hypertension (7) Hyperlipidemia associated with type 2 diabetes mellitus Code(s): E11.69 - TYPE 2 DIABETES MELLITUS WITH OTHER SPECIFIED COMPLICATION E78.5 - HYPERLIPIDEMIA, UNSPECIFIED (8) Gait disturbance Code(s): R26.9 - UNSPECIFIED ABNORMALITIES OF GAIT AND MOBILITY (9) Toxic metabolic encephalopathy Code(s): G92 - TOXIC ENCEPHALOPATHY (10) Hydronephrosis Code(s): N13.30 - UNSPECIFIED HYDRONEPHROSIS Qualifiers: Hydronephrosis type: unspecified Qualified Code(s): N13.30 - Unspecified hydronephrosis Assessment/Plan 05/20/2017 Echo: Normal LV size and fxn without sig valve abnl 1. UTI with toxic metabolic encephelopathy resolved 2. CKD with h/o acute kidney injury (post obstructive-prostate cancer) requiring temporary HD 3. H/o Digoxin toxicity - resolved 4. Permanent atrial fibrillation with variable ventricular response 5. History of hypertension 6. COPD/emphysema with history of exacerbation 7. Type 2 diabetes mellitus 8. Prostate cancer causing extrinsic ureteral compression and hydronephrosis post intervention - post bilateral stents, bladder biopsy PLAN: 1. Monitor renal function and electrolytes. 2. Continue Cardizem CD 240 qd and titrate as tolerated 3. Currently off Eliquis 5 mg BID and on heparin sq, Eliquis held prior to stent exchange and to resume once post-procedure hemostasis achieved 4. Consider ACEI or ARB once renal function stabilizes 5. Fall precaution. Continue PT and eventual SNF 6. Urology input noted, planned for ureteral stent exchange, Zuleyka
--- NOTE | 2017-07-05 15:38 | PN ---
Progress Note, Physician Chief Complaint: The patient sen in his bed. Awaiting the call to the OR. No new complaints. - Current Medication List Current Medications: Active Medications Acetaminophen (Tylenol -) 650 mg PO Q6H PRN PRN Reason: PAIN Last Admin: 06/27/17 06:04 Dose: 650 mg Artificial Tears (Artificial Tears) 1 drop OU BID PRN PRN Reason: DRY EYES Last Admin: 07/05/17 10:55 Dose: 1 drop Bicalutamide (Casodex -) 50 mg PO DAILY [facility] Last Admin: 07/05/17 10:51 Dose: 50 mg Diltiazem HCl (Cardizem Cd -) 240 mg PO DAILY [facility] Last Admin: 07/05/17 10:53 Dose: 240 mg Donepezil HCl (Aricept -) 5 mg PO DAILY [facility] Last Admin: 07/05/17 10:53 Dose: 5 mg Heparin Sodium (Porcine) (Heparin -) 5,000 unit SQ BID [facility] Last Admin: 07/05/17 10:54 Dose: Not Given Nicotine (Nicoderm Patch -) 14 mg TD DAILY [facility] Last Admin: 07/05/17 10:51 Dose: 14 mg Pantoprazole Sodium (Protonix -) 40 mg PO DAILY [facility] Last Admin: 07/05/17 10:54 Dose: 40 mg Polyethylene Glycol (Miralax (For Daily Use) -) 17 gm PO DAILY [facility] Last Admin: 07/05/17 10:54 Dose: Not Given Quetiapine Fumarate (Seroquel -) 25 mg PO BID PRN PRN Reason: ANXIETY - Objective Vital Signs: Vital Signs Temperature 97.9 F 07/05/17 15:26 Pulse Rate 83 07/05/17 15:26 Respiratory Rate 18 07/05/17 15:26 Blood Pressure 153/74 07/05/17 15:26 O2 Sat by Pulse Oximetry (%) 100 07/05/17 09:00 Constitutional: Yes: Well Nourished, No Distress, Anxious Eyes: Yes: Conjunctiva Clear Neck: Yes: Supple Cardiovascular: Yes: Regular Rate and Rhythm, S1, S2 Gastrointestinal: Yes: Normal Bowel Sounds, Abdomen, Obese Genitourinary: No: CVA Tenderness - Left, CVA Tenderness - Right Neurological: Yes: Confusion, Lethargy, Weakness Psychiatric: Yes: Alert Labs: CBC, BMP 07/05/17 06:00 07/05/17 06:00 INR, PTT INR 1.89 (0.82-1.09) H D 06/25/17 15:37 Problem List - Problems (1) SILAS (acute kidney injury) Code(s): N17.9 - ACUTE KIDNEY FAILURE, UNSPECIFIED (2) Confusion Code(s): R41.0 - DISORIENTATION, UNSPECIFIED (3) Acute renal failure Code(s): N17.9 - ACUTE KIDNEY FAILURE, UNSPECIFIED Qualifiers: Acute renal failure type: unspecified Qualified Code(s): N17.9 - Acute kidney failure, unspecified (4) Adenocarcinoma of prostate Code(s): C61 - MALIGNANT NEOPLASM OF PROSTATE (5) Atrial fibrillation with RVR Code(s): I48.91 - UNSPECIFIED ATRIAL FIBRILLATION (6) HTN (hypertension) Code(s): I10 - ESSENTIAL (PRIMARY) HYPERTENSION Qualifiers: Hypertension type: essential hypertension Qualified Code(s): I10 - Essential (primary) hypertension Assessment/Plan 66 year old gentleman with PMhx of COPD, Diverticulitis, DM, Recent SILAS secondary to obstructive nephropathy , Recently diagnosed prostate Ca who presented with altered mentation and found to have suspected UTI and Delirium. #Hx of SILAS/CKD Stage 3 Renal function remains stable, and close to his baseline. Pt is non-oliguric Has persistent hydronephrosis For stent exchange by Dr. Rico today. BUN/ Cr stable at this point. #UTI/leukocytosis off Abx #Prostate CA/Obstructive uropathy urology follow up continue Casodex for prostate Ca Patient awaiting Stent replacement. Had lengthy discussion with family. Will follow up with you. Deysi Patel MD
[2017-07-05] MEDS ORDERED: PROPOFOL 20 ML ONE (16:45)
[2017-07-05] MEDS ORDERED: SUCCINYLCHOLINE CHLORIDE 200 MG/10 ML VIAL ONE (16:45)
[2017-07-05] MEDS ORDERED: ceFAZolin SODIUM 1 GM VIAL ONE (17:17)
[2017-07-05] MEDS ORDERED: LEVOFLOXACIN 500 MG IVPB 100 ML IVPB ONE ×2 (17:18→17:20)
[2017-07-05] MEDS ORDERED: GENTAMICIN SO4 80 MG/2 ML VIAL ONE (17:20)
[2017-07-05] MEDS ORDERED: LEVOFLOXACIN 500 MG PREMIX BAG IVPB ONE (17:20)
[2017-07-05] MEDS ORDERED: GENTAMICIN 80MG PREMIX BAG IVPB ONE (17:20)
--- NOTE | 2017-07-05 17:46 | PN ---
Progress Note, Physician Chief Complaint: UTI,AMS History of Present Illness: NAD, in bed, mental status improved Going for ureteral stent exchange today - Current Medication List Current Medications: Active Medications Acetaminophen (Tylenol -) 650 mg PO Q6H PRN PRN Reason: PAIN Last Admin: 06/27/17 06:04 Dose: 650 mg Artificial Tears (Artificial Tears) 1 drop OU BID PRN PRN Reason: DRY EYES Last Admin: 07/05/17 10:55 Dose: 1 drop Bicalutamide (Casodex -) 50 mg PO DAILY [facility] Last Admin: 07/05/17 10:51 Dose: 50 mg Diltiazem HCl (Cardizem Cd -) 240 mg PO DAILY [facility] Last Admin: 07/05/17 10:53 Dose: 240 mg Donepezil HCl (Aricept -) 5 mg PO DAILY [facility] Last Admin: 07/05/17 10:53 Dose: 5 mg Heparin Sodium (Porcine) (Heparin -) 5,000 unit SQ BID [facility] Last Admin: 07/05/17 10:54 Dose: Not Given Nicotine (Nicoderm Patch -) 14 mg TD DAILY [facility] Last Admin: 07/05/17 10:51 Dose: 14 mg Pantoprazole Sodium (Protonix -) 40 mg PO DAILY [facility] Last Admin: 07/05/17 10:54 Dose: 40 mg Polyethylene Glycol (Miralax (For Daily Use) -) 17 gm PO DAILY [facility] Last Admin: 07/05/17 10:54 Dose: Not Given Quetiapine Fumarate (Seroquel -) 25 mg PO BID PRN PRN Reason: ANXIETY - Objective Vital Signs: Vital Signs Temperature 97.9 F 07/05/17 15:26 Pulse Rate 83 07/05/17 15:26 Respiratory Rate 18 07/05/17 15:26 Blood Pressure 153/74 07/05/17 15:26 O2 Sat by Pulse Oximetry (%) 100 07/05/17 09:00 Constitutional: Yes: Well Nourished, No Distress, Calm Cardiovascular: Yes: Pulse Irregular Respiratory: Yes: Regular Extremities: Yes: WNL Edema: No Peripheral Pulses WNL: Yes Neurological: Yes: Alert, Oriented Psychiatric: Yes: Alert, Oriented Labs: CBC, BMP 07/05/17 06:00 07/05/17 06:00 INR, PTT INR 1.89 (0.82-1.09) H D 06/25/17 15:37 Problem List - Problems (1) Generalized weakness Assessment/Plan: -improved -Physical therapy Code(s): R53.1 - WEAKNESS (2) Adenocarcinoma of prostate Assessment/Plan: -on casodex -recommended Lupron by urology monthly Code(s): C61 - MALIGNANT NEOPLASM OF PROSTATE (3) Delirium Assessment/Plan: -Improved -Brain MRI negative -Seen by neurology and psychiatry -on Donepezil 5mg , tolerating well Code(s): R41.0 - DISORIENTATION, UNSPECIFIED (4) Orthostatic hypotension Assessment/Plan: -improved with compression stockings -seen by cardiology Code(s): I95.1 - ORTHOSTATIC HYPOTENSION (5) Atrial fibrillation with RVR Assessment/Plan: -chronic, controlled -restart eliquis post op Code(s): I48.91 - UNSPECIFIED ATRIAL FIBRILLATION (6) Hydronephrosis Assessment/Plan: -Renal U/S-moderate right hydronephrosis, which was present on previous imaging as well. -Right ureteral stent exhange today -restart eliquis post op Code(s): N13.30 - UNSPECIFIED HYDRONEPHROSIS Qualifiers: Hydronephrosis type: unspecified Qualified Code(s): N13.30 - Unspecified hydronephrosis Assessment/Plan exchange right ureteral stent and plan d/c to SNF/NH closer to where daughter lives.
--- NOTE | 2017-07-05 17:47 | OP ---
Operative Note - Note: Operative Date: 07/05/17 Pre-Operative Diagnosis: ca.P bph,rt. hydronephrosis
[2017-07-05] MEDS ORDERED: DEXAMETHASONE SOD PHOSPHATE 4 MG/1 ML VIAL ONE (17:52)
--- NOTE | 2017-07-05 18:03 | OP ---
Operative Note - Note: Operative Date: 07/05/17 Pre-Operative Diagnosis: rt. hydro. bph with obs. cap Operation: cysto d/c rt. jj ,rt retrograde rt. ureteroscopy placement of rt. jj stent 26cm. 7f plasma button vaperization of prostate gland. Findings: rt. hydro due to blocked rt. jj bph with overflow incontenence and gr. 3 bladder trabeculation Post-Operative Diagnosis: Same as Pre-op Surgeon: Polo Rico Anesthesia: General Specimens Removed: rt. blocked jj stent prostate tissue Estimated Blood Loss (mls): 50 Drains & Tubes with Location: 26cm-7f rt. jj stent, 24f-3way 30cc dutton Drains, Volume Out (mls): 0 Blood Volume Replaced (mls): 0 Fluid Volume Replaced (mls): 0 Operative Report Dictated: Yes
[2017-07-05] MEDS ORDERED: ARTIFICIAL TEARS (POLYVINYL ALCOHOL 1.4%) OPTH DROPS OU PRN (18:28)
[2017-07-05] MEDS ORDERED: PT OWN MED DRAWER 7, Y5N ONE (21:30)
[2017-07-05] MEDS: APIXABAN 5 MG TABLET PO SCH (21:37)
[2017-07-05] MEDS: QUEtiapine FUMARATE 25 MG TABLET (FP) PO SCH (21:37)
--- NOTE | 2017-07-06 06:28 | CONS ---
DATE OF CONSULTATION: 07/05/2017 PREOPERATIVE DIAGNOSES: 1. Cancer prostate. 2. Bilateral hydroureteronephrosis status post bilateral JJ stents. 3. Presents with overflow incontinence and right hydroureteronephrosis secondary to blocked JJ stents. OPERATIVE PROCEDURE: Cystourethroscopy, removal of right JJ stent, right retrograde pyelogram, right ureteroscopy, and placement of a new right JJ stent, and transurethral PlasmaButton vaporization of the prostate gland. ANESTHESIA: General. DESCRIPTION OF PROCEDURE: Under above-stated anesthesia, the patient was prepped and draped in the usual sterile manner. He was placed in the dorsal lithotomy position. Cystoscopy under direct vision revealed a normal urethra. Prostatic urethra revealed trilobar hypertrophy of the prostate. The bladder was entered. This revealed grade 3-4 trabeculation. There was generalized hyperemia and necrotic tissue in the trigone from advanced prostate cancer. Both right and left JJ stents were seen. No efflux was seen from the right stent. Therefore, this was removed. A Flexi-Tip retrograde pyelogram was performed. This revealed the contrast filling to the lower 1/3 of the ureter and then completely stopping. Ureteroscopy was performed with a Glidewire, and after several attempts, the wire was passed up the right renal unit. The ureteroscope was removed. The cystoscope was reattached. A 26-cm 7-Kazakh right JJ stent was placed. X-rays confirmed good position of the stent. The cystoscope was then removed. A resectoscope using the PlasmaButton was inserted. Vaporization of the prostate was commenced at the 6 o'clock position of the right lateral lobe. This was carried on up to the 12 o'clock position. The same thing was done to the left lateral lobe. Lastly, the median lobe was vaporized. Excess prostate chips were evacuated with an Ellik evacuator. No active bleeding was noted. A 24-Kazakh 30-cc 3-way [place] catheter with bladder irrigation was commenced. The patient tolerated the procedure well. He returned to the recovery room in good condition. Maurilio [id number]
[2017-07-06 08:01] LABS: ALBUMIN 3.1 g/dl (3.4-5.0); ANION GAP 8 (8-16); CALCIUM 9.9 mg/dL (8.5-10.1); CO2 30 mmol/L (21-32); CREATININE 1.6 mg/dL (0.7-1.3); GLUCOSE,RANDOM 122 mg/dL (74-106); SGOT/AST 13 U/L (15-37); SGPT/ALT 23 U/L (12-78)
[2017-07-06 08:03] LABS: ALK PHOS 156 U/L (45-117); BILIRUBIN,TOTAL 0.6 mg/dL (0.2-1.0); TOT PROT 6.7 g/dl (6.4-8.2)
--- NOTE | 2017-07-06 09:23 | PN ---
Progress Note (short form) - Note Progress Note: Post op day#1.S/P Cystoscopy with TURP and stent placement under GA uneventful.Patient stable and has little pain for which he is on medication No any anesthesia related problem.Patient Dc from the anesthesia care.
[2017-07-06] MEDS ORDERED: PT OWN MED DRAWER 7, Y5N ONE (09:58)
[2017-07-06] MEDS: PANTOPRAZOLE 40 MG TABLET (FP) PO SCH (10:00)
[2017-07-06] MEDS: NICOTINE 14 MG/24 HOURS TOPICAL PATCH TD SCH (10:00)
[2017-07-06] MEDS: DONEPEZIL HCL 5 MG TABLET (FP) PO SCH (10:00)
[2017-07-06] MEDS: QUEtiapine FUMARATE 25 MG TABLET (FP) PO SCH ×2 (10:00→22:27)
[2017-07-06] MEDS: BICALUTAMIDE 50 MG TABLET (FP) PO SCH (10:01)
[2017-07-06] MEDS: APIXABAN 5 MG TABLET PO SCH ×2 (10:01→22:27)
[2017-07-06] MEDS: POLYETHYLENE GLYCOL 3350 119 GM BTL PO SCH (10:03)
--- NOTE | 2017-07-06 11:31 | PN ---
Progress Note, Physician Chief Complaint: The patient sen in his bed. S/p Cystoscopy, JJ Ureteric stent replacement and Plasma vaporization of the prostate. CBI in progress. The effluent is clear. The patient reports feeling well. Denies any major discomforts. - Current Medication List Current Medications: Active Medications Acetaminophen (Tylenol -) 650 mg PO Q6H PRN PRN Reason: PAIN Apixaban (Eliquis -) 5 mg PO BID [facility] Last Admin: 07/06/17 10:01 Dose: 5 mg Artificial Tears (Artificial Tears) 1 drop OU BID PRN PRN Reason: DRY EYES Bicalutamide (Casodex -) 50 mg PO DAILY [facility] Last Admin: 07/06/17 10:01 Dose: 50 mg Diltiazem HCl (Cardizem Cd -) 240 mg PO DAILY [facility] Last Admin: 07/06/17 10:00 Dose: 240 mg Donepezil HCl (Aricept -) 5 mg PO DAILY [facility] Last Admin: 07/06/17 10:00 Dose: 5 mg Nicotine (Nicoderm Patch -) 14 mg TD DAILY [facility] Last Admin: 07/06/17 10:00 Dose: 14 mg Pantoprazole Sodium (Protonix -) 40 mg PO DAILY [facility] Last Admin: 07/06/17 10:00 Dose: 40 mg Polyethylene Glycol (Miralax (For Daily Use) -) 17 gm PO DAILY [facility] Last Admin: 07/06/17 10:03 Dose: 17 gm Quetiapine Fumarate (Seroquel -) 25 mg PO BID [facility] Last Admin: 07/06/17 10:00 Dose: 25 mg - Objective Vital Signs: Vital Signs Temperature 97.8 F 07/06/17 03:00 Pulse Rate 93 H 07/06/17 03:00 Respiratory Rate 18 07/06/17 03:00 Blood Pressure 137/68 07/06/17 03:00 O2 Sat by Pulse Oximetry (%) 99 07/05/17 22:00 Constitutional: Yes: Well Nourished, No Distress Eyes: Yes: Conjunctiva Clear HENT: Yes: Atraumatic Neck: Yes: Trachea Midline Cardiovascular: Yes: S1, S2 Respiratory: Yes: CTA Bilaterally, Diminished Gastrointestinal: Yes: Normal Bowel Sounds, Soft, Abdomen, Obese Genitourinary: No: CVA Tenderness - Left, CVA Tenderness - Right Neurological: Yes: Alert, Oriented Psychiatric: Yes: Alert, Oriented Labs: CBC, BMP 07/05/17 06:00 INR, PTT INR 1.89 (0.82-1.09) H D 06/25/17 15:37 Problem List - Problems (1) SILAS (acute kidney injury) Code(s): N17.9 - ACUTE KIDNEY FAILURE, UNSPECIFIED (2) Confusion Code(s): R41.0 - DISORIENTATION, UNSPECIFIED (3) Acute renal failure Code(s): N17.9 - ACUTE KIDNEY FAILURE, UNSPECIFIED Qualifiers: Acute renal failure type: unspecified Qualified Code(s): N17.9 - Acute kidney failure, unspecified (4) Adenocarcinoma of prostate Code(s): C61 - MALIGNANT NEOPLASM OF PROSTATE (5) Atrial fibrillation with RVR Code(s): I48.91 - UNSPECIFIED ATRIAL FIBRILLATION (6) HTN (hypertension) Code(s): I10 - ESSENTIAL (PRIMARY) HYPERTENSION Qualifiers: Hypertension type: essential hypertension Qualified Code(s): I10 - Essential (primary) hypertension Assessment/Plan 66 year old gentleman with PMhx of COPD, Diverticulitis, DM, Recent SILAS secondary to obstructive nephropathy , Recently diagnosed prostate Ca. The patient underwent Cysto, JJ stent replacement and Plasma vaporization of the Prostate yesterday. Clinically stable. The Renal functions are stable. Mild Hyperkalemia is noted. Repeat study pending. No specific intervention at this point, unless the Hyperkalemia worsens. Will monitor the Renal functions. CBI to continue until decides otherwise. Thank you. Deysi Patel MD
--- NOTE | 2017-07-06 11:43 | PN ---
Progress Note, Physician - Current Medication List Current Medications: Active Medications Acetaminophen (Tylenol -) 650 mg PO Q6H PRN PRN Reason: PAIN Apixaban (Eliquis -) 5 mg PO BID [facility] Last Admin: 07/06/17 10:01 Dose: 5 mg Artificial Tears (Artificial Tears) 1 drop OU BID PRN PRN Reason: DRY EYES Bicalutamide (Casodex -) 50 mg PO DAILY [facility] Last Admin: 07/06/17 10:01 Dose: 50 mg Diltiazem HCl (Cardizem Cd -) 240 mg PO DAILY [facility] Last Admin: 07/06/17 10:00 Dose: 240 mg Donepezil HCl (Aricept -) 5 mg PO DAILY [facility] Last Admin: 07/06/17 10:00 Dose: 5 mg Nicotine (Nicoderm Patch -) 14 mg TD DAILY [facility] Last Admin: 07/06/17 10:00 Dose: 14 mg Pantoprazole Sodium (Protonix -) 40 mg PO DAILY [facility] Last Admin: 07/06/17 10:00 Dose: 40 mg Polyethylene Glycol (Miralax (For Daily Use) -) 17 gm PO DAILY [facility] Last Admin: 07/06/17 10:03 Dose: 17 gm Quetiapine Fumarate (Seroquel -) 25 mg PO BID [facility] Last Admin: 07/06/17 10:00 Dose: 25 mg - Objective Vital Signs: Vital Signs Temperature 97.8 F 07/06/17 03:00 Pulse Rate 93 H 07/06/17 03:00 Respiratory Rate 18 07/06/17 03:00 Blood Pressure 137/68 07/06/17 03:00 O2 Sat by Pulse Oximetry (%) 99 07/05/17 22:00 Labs: CBC, BMP 07/05/17 06:00 INR, PTT INR 1.89 (0.82-1.09) H D 06/25/17 15:37 Assessment/Plan - Problems (1) Generalized weakness Assessment/Plan: -improved -Physical therapy Code(s): R53.1 - WEAKNESS (2) Adenocarcinoma of prostate Assessment/Plan: -on casodex -recommended Lupron by urology monthly Code(s): C61 - MALIGNANT NEOPLASM OF PROSTATE (3) Delirium Assessment/Plan: -Improved -Brain MRI negative -Seen by neurology and psychiatry -on Donepezil 5mg , tolerating well Code(s): R41.0 - DISORIENTATION, UNSPECIFIED (4) Orthostatic hypotension Assessment/Plan: -improved with compression stockings -seen by cardiology Code(s): I95.1 - ORTHOSTATIC HYPOTENSION (5) Atrial fibrillation with RVR Assessment/Plan: -chronic, controlled -restart eliquis post op Code(s): I48.91 - UNSPECIFIED ATRIAL FIBRILLATION (6) Hydronephrosis Assessment/Plan: -Renal U/S-moderate right hydronephrosis, which was present on previous imaging as well. -Right ureteral stent exhange today -restart eliquis post op -CBI AND ALLRED PER URO Code(s): N13.30 - UNSPECIFIED HYDRONEPHROSIS Qualifiers: Hydronephrosis type: unspecified Qualified Code(s): N13.30 - Unspecified hydronephrosis Assessment/Plan exchange right ureteral stent and plan d/c to SNF/DC
--- NOTE | 2017-07-06 12:02 | PN ---
Progress Note (short form) - Note Progress Note: Chief Complaint: Events noted, notes reviewed. Lethargic but arousable, denies any chest pain or dyspnea, remains confused and disoriented History of Present Illness: Seen and examined. Events noted, notes reviewed. Lethargic but arousable, denies any chest pain or dyspnea, remains confused and disoriented Echocardiography dated 05/20/17 revealed normal LV size and systolic function with no significant valvular pathology - Current Medication List Current Medications Acetaminophen (Tylenol -) 650 mg PO Q6H PRN PRN Reason: PAIN Apixaban (Eliquis -) 5 mg PO BID [facility] Last Admin: 07/06/17 10:01 Dose: 5 mg Artificial Tears (Artificial Tears) 1 drop OU BID PRN PRN Reason: DRY EYES Bicalutamide (Casodex -) 50 mg PO DAILY [facility] Last Admin: 07/06/17 10:01 Dose: 50 mg Diltiazem HCl (Cardizem Cd -) 240 mg PO DAILY [facility] Last Admin: 07/06/17 10:00 Dose: 240 mg Donepezil HCl (Aricept -) 5 mg PO DAILY [facility] Last Admin: 07/06/17 10:00 Dose: 5 mg Nicotine (Nicoderm Patch -) 14 mg TD DAILY [facility] Last Admin: 07/06/17 10:00 Dose: 14 mg Pantoprazole Sodium (Protonix -) 40 mg PO DAILY [facility] Last Admin: 07/06/17 10:00 Dose: 40 mg Polyethylene Glycol (Miralax (For Daily Use) -) 17 gm PO DAILY [facility] Last Admin: 07/06/17 10:03 Dose: 17 gm Quetiapine Fumarate (Seroquel -) 25 mg PO BID [facility] Last Admin: 07/06/17 10:00 Dose: 25 mg - Objective Vital Signs: Last Vital Signs Temp Pulse Resp BP Pulse Ox 97.8 F 99 H 18 140/93 96 07/06/17 09:00 07/06/17 09:00 07/06/17 09:00 07/06/17 09:00 07/06/17 09:00 Intake & Output 07/03/17 07/04/17 07/05/17 07/06/17 23:59 23:59 23:59 23:59 Intake Total 0 260 750 62212 Output Total 200 4200 72748 Balance 0 60 -3450 -3800 Neck: Supple Negative JVD No Bruit Cardiovascular: S1 S2 Irregularly Irregular No Murmurs, Clicks or Gallops Respiratory: Diminished Breath sounds at the Bases Gastrointestinal: Soft Benign Normal Bowel Sounds Ext: No Edema Labs: CBC, BMP 07/05/17 06:00 Assessment/Plan ASSESSMENT: 1. UTI with toxic metabolic encephelopathy, resolving 2. CAD angina pectoris, stable 3. Diastolic LV dysfunction with class 0-I NYHA classification LV congestive heart failure, compensated/euvolemic 4. Permanent atrial fibrillation on chronic A/C with NOAC's/Eliquis 5. HTN 6. DM 7. COPD/emphysema 8. Prostate carcinoma, causing extrinsic ureteral compression and hydronephrosis post intervention Anemia PLAN: 1. Continue Cardizem CD 2. Continue Eliquis 3. Consider ACEI or ARB once renal function stabilizes 4. Monitor to monitor renal function closely Caro Ordoñez MD
[2017-07-06 12:20] LABS: ANION GAP 11 (8-16); CALCIUM 9.5 mg/dL (8.5-10.1); CO2 28 mmol/L (21-32); CREATININE 1.7 mg/dL (0.7-1.3); GLUCOSE,RANDOM 191 mg/dL (74-106)
--- NOTE | 2017-07-06 14:15 | PN ---
Progress Note (short form) - Note Progress Note: UROLOGY.POD#1 s/p tuvp and rt. jj stent exchange. abd. soft bs++ n/t no cva-t dutton with cbi clear ,patent and no clots plan.-d/c cbi,oob, increase po fluids. will d/c dutton in am.
[2017-07-06 15:49] LABS: BASOPHIL 0.6 % (0-2.0); EOSINOPHIL 0.4 % (0-4.5); MCH 31.4 pg (25.7-33.7); MCHC 34.3 g/dl (32.0-35.9); MEAN CELL VOLUME 91.7 fl (80-96); MEAN PLT VOLUME 7.7 fl (7.5-11.1); PLATELET COUNT 310 K/MM3 (134-434); RDW 13.3 % (11.9-15.9); WHITE BLOOD COUNT 16.3 K/mm3 (4.0-10.0)
[2017-07-07 07:36] LABS: BASOPHIL 0.4 % (0-2.0); EOSINOPHIL 2.3 % (0-4.5); MCH 31.2 pg (25.7-33.7); MCHC 34.1 g/dl (32.0-35.9); MEAN CELL VOLUME 91.5 fl (80-96); MEAN PLT VOLUME 7.7 fl (7.5-11.1); NEUTROPHILS 76.2 % (42.8-82.8); PLATELET COUNT 324 K/MM3 (134-434); RDW 13.5 % (11.9-15.9); WHITE BLOOD COUNT 13.7 K/mm3 (4.0-10.0)
[2017-07-07 07:59] LABS: ALBUMIN 2.7 g/dl (3.4-5.0); ANION GAP 7 (8-16); CALCIUM 9.4 mg/dL (8.5-10.1); CO2 33 mmol/L (21-32); GLUCOSE,RANDOM 87 mg/dL (74-106); SGOT/AST 10 U/L (15-37); SGPT/ALT 18 U/L (12-78)
[2017-07-07 08:02] LABS: ALK PHOS 125 U/L (45-117); BILIRUBIN,TOTAL 0.6 mg/dL (0.2-1.0); CREATININE 1.5 mg/dL (0.7-1.3); TOT PROT 5.7 g/dl (6.4-8.2)
[2017-07-07] MEDS: NICOTINE 14 MG/24 HOURS TOPICAL PATCH TD SCH (09:30)
[2017-07-07] MEDS: PANTOPRAZOLE 40 MG TABLET (FP) PO SCH (09:31)
[2017-07-07] MEDS: QUEtiapine FUMARATE 25 MG TABLET (FP) PO SCH ×2 (09:31→21:22)
[2017-07-07] MEDS: POLYETHYLENE GLYCOL 3350 119 GM BTL PO SCH (09:31)
[2017-07-07] MEDS: DONEPEZIL HCL 5 MG TABLET (FP) PO SCH (09:31)
[2017-07-07] MEDS: APIXABAN 5 MG TABLET PO SCH ×2 (09:32→21:22)
[2017-07-07] MEDS: BICALUTAMIDE 50 MG TABLET (FP) PO SCH (09:32)
--- NOTE | 2017-07-07 09:35 | PN ---
Progress Note (short form) - Note Progress Note: Chief Complaint: Events noted, notes reviewed. awake and alert, denies any chest pain or dyspnea, complaining of short term memory impairment History of Present Illness: Seen and examined. Events noted, notes reviewed. awake and alert, denies any chest pain or dyspnea, complaining of short term memory impairment Echocardiography dated 05/20/17 revealed normal LV size and systolic function with no significant valvular pathology - Current Medication List Current Medications Acetaminophen (Tylenol -) 650 mg PO Q6H PRN PRN Reason: PAIN Apixaban (Eliquis -) 5 mg PO BID [facility] Last Admin: 07/07/17 09:32 Dose: 5 mg Artificial Tears (Artificial Tears) 1 drop OU BID PRN PRN Reason: DRY EYES Bicalutamide (Casodex -) 50 mg PO DAILY [facility] Last Admin: 07/07/17 09:32 Dose: 50 mg Diltiazem HCl (Cardizem Cd -) 240 mg PO DAILY [facility] Last Admin: 07/07/17 09:31 Dose: 240 mg Donepezil HCl (Aricept -) 5 mg PO DAILY [facility] Last Admin: 07/07/17 09:31 Dose: 5 mg Nicotine (Nicoderm Patch -) 14 mg TD DAILY [facility] Last Admin: 07/07/17 09:30 Dose: 14 mg Pantoprazole Sodium (Protonix -) 40 mg PO DAILY [facility] Last Admin: 07/07/17 09:31 Dose: 40 mg Polyethylene Glycol (Miralax (For Daily Use) -) 17 gm PO DAILY [facility] Last Admin: 07/07/17 09:31 Dose: 17 gm Quetiapine Fumarate (Seroquel -) 25 mg PO BID [facility] Last Admin: 07/07/17 09:31 Dose: 25 mg - Objective Vital Signs: Last Vital Signs Temp Pulse Resp BP Pulse Ox 97.4 F L 77 18 145/75 96 07/07/17 06:00 07/07/17 06:00 07/07/17 06:00 07/07/17 06:00 07/06/17 09:00 Intake & Output 07/04/17 07/05/17 07/06/17 07/07/17 23:59 23:59 23:59 23:59 Intake Total 260 750 61829 4500 Output Total 200 4200 65756 1200 Balance 60 -3450 -9300 3300 Neck: Supple Negative JVD No Bruit Cardiovascular: S1 S2 Irregularly Irregular No Murmurs, Clicks or Gallops Respiratory: Diminished Breath sounds at the Bases Gastrointestinal: Soft Benign Normal Bowel Sounds Ext: No Edema Labs: CBC, BMP 07/07/17 06:20 07/07/17 06:20 INR, PTT INR 1.89 (0.82-1.09) H D 06/25/17 15:37 Assessment/Plan ASSESSMENT: 1. UTI with toxic metabolic encephelopathy, resolved 2. CAD angina pectoris, stable 3. Diastolic LV dysfunction with class 0-I NYHA classification LV congestive heart failure, compensated/euvolemic 4. Permanent atrial fibrillation on chronic A/C with NOAC's/Eliquis 5. HTN 6. DM 7. COPD/emphysema 8. CKD 9. Prostate carcinoma, causing extrinsic ureteral compression and hydronephrosis post intervention 10. Anemia PLAN: 1. Continue Cardizem CD 2. Continue Eliquis with close monitoring of CBC 3. Consider ACEI or ARB once renal function stabilizes 4. Continue to monitor renal function closely Caro Odroñez MD
--- NOTE | 2017-07-07 11:57 | PN ---
Progress Note, Physician History of Present Illness: FEELS BETTER - Current Medication List Current Medications: Active Medications Acetaminophen (Tylenol -) 650 mg PO Q6H PRN PRN Reason: PAIN Apixaban (Eliquis -) 5 mg PO BID [facility] Last Admin: 07/07/17 09:32 Dose: 5 mg Artificial Tears (Artificial Tears) 1 drop OU BID PRN PRN Reason: DRY EYES Bicalutamide (Casodex -) 50 mg PO DAILY [facility] Last Admin: 07/07/17 09:32 Dose: 50 mg Diltiazem HCl (Cardizem Cd -) 240 mg PO DAILY [facility] Last Admin: 07/07/17 09:31 Dose: 240 mg Donepezil HCl (Aricept -) 5 mg PO DAILY [facility] Last Admin: 07/07/17 09:31 Dose: 5 mg Nicotine (Nicoderm Patch -) 14 mg TD DAILY [facility] Last Admin: 07/07/17 09:30 Dose: 14 mg Pantoprazole Sodium (Protonix -) 40 mg PO DAILY [facility] Last Admin: 07/07/17 09:31 Dose: 40 mg Polyethylene Glycol (Miralax (For Daily Use) -) 17 gm PO DAILY [facility] Last Admin: 07/07/17 09:31 Dose: 17 gm Quetiapine Fumarate (Seroquel -) 25 mg PO BID [facility] Last Admin: 07/07/17 09:31 Dose: 25 mg - Objective Vital Signs: Vital Signs Temperature 97.5 F L 07/07/17 10:00 Pulse Rate 83 07/07/17 10:03 Respiratory Rate 18 07/07/17 10:00 Blood Pressure 127/64 07/07/17 10:00 O2 Sat by Pulse Oximetry (%) 96 07/07/17 10:03 Cardiovascular: Yes: Regular Rate and Rhythm Respiratory: Yes: Regular, CTA Bilaterally Gastrointestinal: Yes: Normal Bowel Sounds, Soft Genitourinary: Yes: Allred Present (CBI DISCONTINUED) Labs: CBC, BMP 07/07/17 06:20 07/07/17 06:20 INR, PTT INR 1.89 (0.82-1.09) H D 06/25/17 15:37 Assessment/Plan - Problems (1) Generalized weakness Assessment/Plan: -improved -Physical therapy Code(s): R53.1 - WEAKNESS (2) Adenocarcinoma of prostate Assessment/Plan: -on casodex -recommended Lupron by urology monthly Code(s): C61 - MALIGNANT NEOPLASM OF PROSTATE (3) Delirium Assessment/Plan: -Improved -Brain MRI negative -Seen by neurology and psychiatry -on Donepezil 5mg , tolerating well Code(s): R41.0 - DISORIENTATION, UNSPECIFIED (4) Orthostatic hypotension Assessment/Plan: -improved with compression stockings -seen by cardiology Code(s): I95.1 - ORTHOSTATIC HYPOTENSION (5) Atrial fibrillation with RVR Assessment/Plan: -chronic, controlled -restart eliquis post op Code(s): I48.91 - UNSPECIFIED ATRIAL FIBRILLATION (6) Hydronephrosis Assessment/Plan: -Renal U/S-moderate right hydronephrosis, which was present on previous imaging as well. -Right ureteral stent exhange today -restart eliquis post op -CBI AND ALLRED PER URO Code(s): N13.30 - UNSPECIFIED HYDRONEPHROSIS Qualifiers: Hydronephrosis type: unspecified Qualified Code(s): N13.30 - Unspecified hydronephrosis Assessment/Plan exchange right ureteral stent and plan d/c to SNF/NH
--- NOTE | 2017-07-07 17:34 | PN ---
Progress Note, Physician Chief Complaint: The patient sen in his bed. S/p Cystoscopy, JJ Ureteric stent replacement and Plasma vaporization of the prostate. The patient reports feeling well. Denies any major discomforts. - Current Medication List Current Medications: Active Medications Acetaminophen (Tylenol -) 650 mg PO Q6H PRN PRN Reason: PAIN Apixaban (Eliquis -) 5 mg PO BID [facility] Last Admin: 07/07/17 09:32 Dose: 5 mg Artificial Tears (Artificial Tears) 1 drop OU BID PRN PRN Reason: DRY EYES Bicalutamide (Casodex -) 50 mg PO DAILY [facility] Last Admin: 07/07/17 09:32 Dose: 50 mg Diltiazem HCl (Cardizem Cd -) 240 mg PO DAILY [facility] Last Admin: 07/07/17 09:31 Dose: 240 mg Donepezil HCl (Aricept -) 5 mg PO DAILY [facility] Last Admin: 07/07/17 09:31 Dose: 5 mg Nicotine (Nicoderm Patch -) 14 mg TD DAILY [facility] Last Admin: 07/07/17 09:30 Dose: 14 mg Pantoprazole Sodium (Protonix -) 40 mg PO DAILY [facility] Last Admin: 07/07/17 09:31 Dose: 40 mg Polyethylene Glycol (Miralax (For Daily Use) -) 17 gm PO DAILY [facility] Last Admin: 07/07/17 09:31 Dose: 17 gm Quetiapine Fumarate (Seroquel -) 25 mg PO BID [facility] Last Admin: 07/07/17 09:31 Dose: 25 mg - Objective Vital Signs: Vital Signs Temperature 97.1 F L 07/07/17 15:11 Pulse Rate 76 07/07/17 15:11 Respiratory Rate 20 07/07/17 15:11 Blood Pressure 106/52 07/07/17 15:11 O2 Sat by Pulse Oximetry (%) 96 07/07/17 10:03 Constitutional: Yes: Well Nourished, No Distress Eyes: Yes: Conjunctiva Clear HENT: Yes: Normocephalic Neck: Yes: Supple Cardiovascular: Yes: S1, S2 Respiratory: Yes: CTA Bilaterally Gastrointestinal: Yes: Normal Bowel Sounds, Soft Genitourinary: No: CVA Tenderness - Left, CVA Tenderness - Right Labs: CBC, BMP 07/07/17 06:20 07/07/17 06:20 INR, PTT INR 1.89 (0.82-1.09) H D 06/25/17 15:37 Problem List - Problems (1) SILAS (acute kidney injury) Code(s): N17.9 - ACUTE KIDNEY FAILURE, UNSPECIFIED (2) Confusion Code(s): R41.0 - DISORIENTATION, UNSPECIFIED (3) Acute renal failure Code(s): N17.9 - ACUTE KIDNEY FAILURE, UNSPECIFIED Qualifiers: Acute renal failure type: unspecified Qualified Code(s): N17.9 - Acute kidney failure, unspecified (4) Adenocarcinoma of prostate Code(s): C61 - MALIGNANT NEOPLASM OF PROSTATE (5) Atrial fibrillation with RVR Code(s): I48.91 - UNSPECIFIED ATRIAL FIBRILLATION (6) HTN (hypertension) Code(s): I10 - ESSENTIAL (PRIMARY) HYPERTENSION Qualifiers: Hypertension type: essential hypertension Qualified Code(s): I10 - Essential (primary) hypertension Assessment/Plan 66 year old gentleman with PMhx of COPD, Diverticulitis, DM, Recent SILAS secondary to obstructive nephropathy , Recently diagnosed prostate Ca. The patient underwent Cysto, JJ stent replacement and Plasma vaporization of the Prostate yesterday. Clinically stable. The Renal functions are stable. Serum K normal. No specific intervention at this point. Will monitor the Renal functions. Thank you. Deysi Patel MD
[2017-07-08 08:19] LABS: ALBUMIN 2.5 g/dl (3.4-5.0); ALK PHOS 119 U/L (45-117); ANION GAP 7 (8-16); BILIRUBIN,TOTAL 0.3 mg/dL (0.2-1.0); CALCIUM 9.2 mg/dL (8.5-10.1); CO2 31 mmol/L (21-32); CREATININE 1.5 mg/dL (0.7-1.3); GLUCOSE,RANDOM 97 mg/dL (74-106); SGOT/AST 20 U/L (15-37); SGPT/ALT 24 U/L (12-78); TOT PROT 5.3 g/dl (6.4-8.2)
--- NOTE | 2017-07-08 09:28 | PN ---
Progress Note, Physician History of Present Illness: No complaints, denies hematuria. Post TUVP and right ureteral stent exchange POD #3 - Current Medication List Current Medications: Active Medications Acetaminophen (Tylenol -) 650 mg PO Q6H PRN PRN Reason: PAIN Apixaban (Eliquis -) 5 mg PO BID [facility] Last Admin: 07/07/17 21:22 Dose: 5 mg Artificial Tears (Artificial Tears) 1 drop OU BID PRN PRN Reason: DRY EYES Bicalutamide (Casodex -) 50 mg PO DAILY [facility] Last Admin: 07/07/17 09:32 Dose: 50 mg Diltiazem HCl (Cardizem Cd -) 240 mg PO DAILY [facility] Last Admin: 07/07/17 09:31 Dose: 240 mg Donepezil HCl (Aricept -) 5 mg PO DAILY [facility] Last Admin: 07/07/17 09:31 Dose: 5 mg Nicotine (Nicoderm Patch -) 14 mg TD DAILY [facility] Last Admin: 07/07/17 09:30 Dose: 14 mg Pantoprazole Sodium (Protonix -) 40 mg PO DAILY [facility] Last Admin: 07/07/17 09:31 Dose: 40 mg Polyethylene Glycol (Miralax (For Daily Use) -) 17 gm PO DAILY [facility] Last Admin: 07/07/17 09:31 Dose: 17 gm Quetiapine Fumarate (Seroquel -) 25 mg PO BID [facility] Last Admin: 07/07/17 21:22 Dose: 25 mg - Objective Vital Signs: Vital Signs Temperature 97.9 F 07/08/17 05:59 Pulse Rate 81 07/08/17 05:59 Respiratory Rate 18 07/08/17 05:59 Blood Pressure 134/61 07/08/17 05:59 O2 Sat by Pulse Oximetry (%) 97 07/07/17 20:46 Constitutional: Yes: No Distress, Calm Neck: Yes: Supple Cardiovascular: Yes: Regular Rate and Rhythm Respiratory: Yes: Regular, Diminished Gastrointestinal: Yes: Normal Bowel Sounds, Soft Edema: No Labs: CBC, BMP 07/07/17 06:20 07/08/17 06:30 INR, PTT INR 1.89 (0.82-1.09) H D 06/25/17 15:37 Problem List - Problems (1) Prostate cancer Code(s): C61 - MALIGNANT NEOPLASM OF PROSTATE (2) UTI (urinary tract infection) Code(s): N39.0 - URINARY TRACT INFECTION, SITE NOT SPECIFIED Qualifiers: Urinary tract infection type: site unspecified (3) Atrial fibrillation with RVR Code(s): I48.91 - UNSPECIFIED ATRIAL FIBRILLATION (4) Diabetes Code(s): E11.9 - TYPE 2 DIABETES MELLITUS WITHOUT COMPLICATIONS Qualifiers: Diabetes mellitus type: type 2 Diabetes mellitus complication status: without complication (5) Diastolic CHF Code(s): I50.30 - UNSPECIFIED DIASTOLIC (CONGESTIVE) HEART FAILURE Qualifiers : Congestive heart failure chronicity: chronic Qualified Code(s): I50.32 - Chronic diastolic (congestive) heart failure (6) HTN (hypertension) Code(s): I10 - ESSENTIAL (PRIMARY) HYPERTENSION Qualifiers: Hypertension type: essential hypertension Qualified Code(s): I10 - Essential (primary) hypertension (7) Hyperlipidemia associated with type 2 diabetes mellitus Code(s): E11.69 - TYPE 2 DIABETES MELLITUS WITH OTHER SPECIFIED COMPLICATION E78.5 - HYPERLIPIDEMIA, UNSPECIFIED (8) Gait disturbance Code(s): R26.9 - UNSPECIFIED ABNORMALITIES OF GAIT AND MOBILITY (9) Toxic metabolic encephalopathy Code(s): G92 - TOXIC ENCEPHALOPATHY (10) Hydronephrosis Code(s): N13.30 - UNSPECIFIED HYDRONEPHROSIS Qualifiers: Hydronephrosis type: unspecified Qualified Code(s): N13.30 - Unspecified hydronephrosis Assessment/Plan 05/20/2017 Echo: Normal LV size and fxn without sig valve abnl 1. UTI with toxic metabolic encephelopathy, resolved 2. CAD angina pectoris, stable 3. Diastolic LV dysfunction with class 0-I NYHA classification LV congestive heart failure, compensated/euvolemic 4. Permanent atrial fibrillation on chronic A/C with NOAC's/Eliquis 5. HTN 6. DM 7. COPD/emphysema 8. CKD 9. Prostate carcinoma, causing extrinsic ureteral compression and hydronephrosis post TUVP and right stent exchange 10. Anemia PLAN: 1. Continue Cardizem CD 240 qd 2. Continue Eliquis 5 bid with close monitoring of CBC 3. Consider ACEI or ARB once renal function stabilizes 4. Continue to monitor renal function closely
--- NOTE | 2017-07-08 10:00 | PN ---
Progress Note, Physician Chief Complaint: UTI,AMS History of Present Illness: NAD, in bed, mental status improved S/P ureteral stent exchange - Current Medication List Current Medications: Active Medications Acetaminophen (Tylenol -) 650 mg PO Q6H PRN PRN Reason: PAIN Apixaban (Eliquis -) 5 mg PO BID [facility] Last Admin: 07/07/17 21:22 Dose: 5 mg Artificial Tears (Artificial Tears) 1 drop OU BID PRN PRN Reason: DRY EYES Bicalutamide (Casodex -) 50 mg PO DAILY [facility] Last Admin: 07/07/17 09:32 Dose: 50 mg Diltiazem HCl (Cardizem Cd -) 240 mg PO DAILY [facility] Last Admin: 07/07/17 09:31 Dose: 240 mg Donepezil HCl (Aricept -) 5 mg PO DAILY [facility] Last Admin: 07/07/17 09:31 Dose: 5 mg Nicotine (Nicoderm Patch -) 14 mg TD DAILY [facility] Last Admin: 07/07/17 09:30 Dose: 14 mg Pantoprazole Sodium (Protonix -) 40 mg PO DAILY [facility] Last Admin: 07/07/17 09:31 Dose: 40 mg Polyethylene Glycol (Miralax (For Daily Use) -) 17 gm PO DAILY [facility] Last Admin: 07/07/17 09:31 Dose: 17 gm Quetiapine Fumarate (Seroquel -) 25 mg PO BID [facility] Last Admin: 07/07/17 21:22 Dose: 25 mg - Objective Vital Signs: Vital Signs Temperature 97.9 F 07/08/17 05:59 Pulse Rate 81 07/08/17 05:59 Respiratory Rate 18 07/08/17 05:59 Blood Pressure 134/61 07/08/17 05:59 O2 Sat by Pulse Oximetry (%) 97 07/07/17 20:46 Constitutional: Yes: Well Nourished, No Distress, Calm Cardiovascular: Yes: Regular Rate and Rhythm Respiratory: Yes: Regular Musculoskeletal: Yes: WNL Edema: No Peripheral Pulses WNL: Yes Neurological: Yes: Alert Psychiatric: Yes: Alert Labs: CBC, BMP 07/07/17 06:20 07/08/17 06:30 INR, PTT INR 1.89 (0.82-1.09) H D 06/25/17 15:37 Problem List - Problems (1) Generalized weakness Assessment/Plan: -improved -Physical therapy Code(s): R53.1 - WEAKNESS (2) Adenocarcinoma of prostate Assessment/Plan: -on casodex -recommended Lupron by urology monthly Code(s): C61 - MALIGNANT NEOPLASM OF PROSTATE (3) Delirium Assessment/Plan: -Improved -Brain MRI negative -Seen by neurology and psychiatry -on Donepezil 5mg , tolerating well -He was placed on seroquel after an episode of agitation and confusion post stent placement, which is very likely due to acute delirium secondary to anesthesia. Would monitor patient off seroquel. Code(s): R41.0 - DISORIENTATION, UNSPECIFIED (4) Orthostatic hypotension Assessment/Plan: -improved with compression stockings -seen by cardiology Code(s): I95.1 - ORTHOSTATIC HYPOTENSION (5) Atrial fibrillation with RVR Assessment/Plan: -chronic, controlled -restart eliquis post op Code(s): I48.91 - UNSPECIFIED ATRIAL FIBRILLATION (6) Hydronephrosis Assessment/Plan: -Renal U/S-moderate right hydronephrosis, which was present on previous imaging as well. -S/P Right ureteral stent exhange -repeat U/S renal to monitor resolving hydronephrosis Code(s): N13.30 - UNSPECIFIED HYDRONEPHROSIS Qualifiers: Hydronephrosis type: unspecified Qualified Code(s): N13.30 - Unspecified hydronephrosis Assessment/Plan S/P exchange right ureteral stent and plan d/c to SNF/NH closer to where daughter lives. Spoke to daughter over the phone. Informed community planner. Daughter is willing to pay for the transportation.
[2017-07-08] MEDS ORDERED: PT OWN MED DRAWER 7, Y5N ONE (10:10)
[2017-07-08] MEDS: QUEtiapine FUMARATE 25 MG TABLET (FP) PO SCH (10:14)
[2017-07-08] MEDS: PANTOPRAZOLE 40 MG TABLET (FP) PO SCH (10:14)
[2017-07-08] MEDS: BICALUTAMIDE 50 MG TABLET (FP) PO SCH (10:15)
[2017-07-08] MEDS: APIXABAN 5 MG TABLET PO SCH ×2 (10:15→21:24)
[2017-07-08] MEDS: NICOTINE 14 MG/24 HOURS TOPICAL PATCH TD SCH (10:15)
[2017-07-08] MEDS: DONEPEZIL HCL 5 MG TABLET (FP) PO SCH (10:15)
--- NOTE | 2017-07-08 10:55 | PN ---
Progress Note (short form) - Note Progress Note: Renal Follow up for CKD Pt seen and examined at the bedside awake and alert no acute complaints voiding well no CP, SOB, Abd Pain, N/V/D Vital Signs Temperature 97.9 F 07/08/17 05:59 Pulse Rate 81 07/08/17 05:59 Respiratory Rate 18 07/08/17 05:59 Blood Pressure 134/61 07/08/17 05:59 O2 Sat by Pulse Oximetry (%) 97 07/07/17 20:46 Intake & Output 07/05/17 07/06/17 07/07/17 07/08/17 23:59 23:59 23:59 23:59 Intake Total 750 94794 4850 Output Total 4200 52510 2450 Balance -3450 -9300 2400 Gen: NAD, awake and alert CVS: RRR Lungs: CTA, no rales or wheeze Abd: soft NT/ND Ext: No edema CBC, BMP 07/07/17 06:20 07/08/17 06:30 Laboratory Tests 07/08/17 06:30 Calcium 9.2 Albumin 2.5 L Current Medications Acetaminophen (Tylenol -) 650 mg PO Q6H PRN PRN Reason: PAIN Apixaban (Eliquis -) 5 mg PO BID [facility] Last Admin: 07/08/17 10:15 Dose: 5 mg Artificial Tears (Artificial Tears) 1 drop OU BID PRN PRN Reason: DRY EYES Bicalutamide (Casodex -) 50 mg PO DAILY [facility] Last Admin: 07/08/17 10:15 Dose: 50 mg Diltiazem HCl (Cardizem Cd -) 240 mg PO DAILY [facility] Last Admin: 07/08/17 10:14 Dose: 240 mg Donepezil HCl (Aricept -) 5 mg PO DAILY [facility] Last Admin: 07/08/17 10:15 Dose: 5 mg Nicotine (Nicoderm Patch -) 14 mg TD DAILY [facility] Last Admin: 07/08/17 10:15 Dose: 14 mg Pantoprazole Sodium (Protonix -) 40 mg PO DAILY [facility] Last Admin: 07/08/17 10:14 Dose: 40 mg Polyethylene Glycol (Miralax (For Daily Use) -) 17 gm PO DAILY [facility] Last Admin: 07/07/17 09:31 Dose: 17 gm Quetiapine Fumarate (Seroquel -) 25 mg PO BID [facility] Last Admin: 07/08/17 10:14 Dose: 25 mg A/P 66 year old gentleman with PMhx of COPD, Diverticulitis, DM, 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 #Hx of SILAS/CKD Stage 3 Renal function stable s/p cysto, JJ stent replacement and Plasma vaporization of the Prostate urology follow up Trend BUN/Cr #AMS/Delirium on seroquel MRI w/o acute pathology #UTI/leukocytosis off Abx #Prostate CA/Obstructive uropathy urology follow up continue Casodex for prostate Ca Thank you will follow
--- NOTE | 2017-07-08 17:16 | HOSP ---
Subjective - Review of Symptoms Subjective: Was paged by nurse to evaluate a patient s/p unwitnessed fall. Patient is A&O x1 at baseline. Patient on eliquis. Patient was moving all four extremities spontaneously. No bony tenderness along prominences. No pain upon movement of any joints. PEERL. EOMI intact. 5/5 strength in all extremities. Patient denies chest pain, dizziness, shortness of breath. He denies hitting his head upon falling. HEENT: No: Head Aches, Visual Changes Pulmonary: No: Dyspnea Cardiovascular: No: Chest Pain, Palpitations Gastrointestinal: No: Nausea, Vomiting, Abdominal Pain Physical Examination Vital Signs: Vital Signs Temperature 98.0 F 07/08/17 15:33 Pulse Rate 83 07/08/17 15:33 Respiratory Rate 18 07/08/17 15:33 Blood Pressure 121/58 07/08/17 15:33 O2 Sat by Pulse Oximetry (%) 97 07/08/17 14:16 Constitutional: Yes: No Distress, Calm Eyes: Yes: EOM Intact, PERRL. No: Diplopia, Ptosis HENT: Yes: Atraumatic, Normocephalic Neck: Yes: Supple, Trachea Midline Cardiovascular: Yes: Regular Rate and Rhythm, S1, S2. No: Gallop, Murmur, Rub Respiratory: Yes: Regular, CTA Bilaterally Extremities: Yes: External Rotation, Internal Rotation. No: Calf Tenderness, Deformity, Erythema, Shortened Integumentary: No: Bruising, Erythema, Laceration, Petechiae Psychiatric: Yes: Alert Labs: CBC, BMP 07/07/17 06:20 07/08/17 06:30 Hospitalist Encounter Assessment: 76 yo m w/ PMH prostate adenocarinoma admitted for altered mental status had an unwitnessed fall . -patient found sitting cross legged by the side of his bed. He denies hitting his head -no bony tenderness -neuro exam WNL -patient a&ox1 at baseline -non-con CT head stat ordered. -neuro checks Q2 -pharmacy consult Visit type - Emergency Visit Emergency Visit: Yes ED Registration Date: 06/25/17 Care time: The patient presented to the Emergency Department on the above date and was hospitalized for further evaluation of their emergent condition. - New Patient This patient is new to me today: Yes Date on this admission: 07/08/17 - Critical Care Critical Care patient: No
[2017-07-08 18:11] LABS: BASOPHIL 0.6 % (0-2.0); EOSINOPHIL 4.5 % (0-4.5); MCH 31.6 pg (25.7-33.7); MCHC 34.5 g/dl (32.0-35.9); MEAN CELL VOLUME 91.6 fl (80-96); MEAN PLT VOLUME 7.8 fl (7.5-11.1); NEUTROPHILS 71.9 % (42.8-82.8); PLATELET COUNT 319 K/MM3 (134-434); RDW 13.6 % (11.9-15.9); WHITE BLOOD COUNT 11.2 K/mm3 (4.0-10.0)
[2017-07-09 07:18] LABS: MCH 31.2 pg (25.7-33.7); MEAN CELL VOLUME 91.8 fl (80-96); MEAN PLT VOLUME 7.7 fl (7.5-11.1); NEUTROPHILS 72.2 % (42.8-82.8); PLATELET COUNT 313 K/MM3 (134-434); RDW 13.4 % (11.9-15.9); WHITE BLOOD COUNT 11.3 K/mm3 (4.0-10.0)
[2017-07-09 08:27] LABS: ALBUMIN 2.6 g/dl (3.4-5.0); ALK PHOS 118 U/L (45-117); ANION GAP 4 (8-16); BILIRUBIN,TOTAL 0.5 mg/dL (0.2-1.0); CALCIUM 9.3 mg/dL (8.5-10.1); CO2 33 mmol/L (21-32); CREATININE 1.4 mg/dL (0.7-1.3); GLUCOSE,RANDOM 101 mg/dL (74-106); MAGNESIUM 2.2 mg/dL (1.8-2.4); PHOSPHOROUS 3.5 mg/dL (2.5-4.9); SGOT/AST 13 U/L (15-37); SGPT/ALT 22 U/L (12-78); TOT PROT 5.8 g/dl (6.4-8.2)
[2017-07-09] MEDS: APIXABAN 5 MG TABLET PO SCH ×2 (09:33→21:24)
[2017-07-09] MEDS: POLYETHYLENE GLYCOL 3350 119 GM BTL PO SCH (09:33)
[2017-07-09] MEDS: DONEPEZIL HCL 5 MG TABLET (FP) PO SCH (09:33)
[2017-07-09] MEDS: NICOTINE 14 MG/24 HOURS TOPICAL PATCH TD SCH (09:33)
[2017-07-09] MEDS: BICALUTAMIDE 50 MG TABLET (FP) PO SCH (09:33)
[2017-07-09] MEDS: PANTOPRAZOLE 40 MG TABLET (FP) PO SCH (09:33)
--- NOTE | 2017-07-09 09:49 | PN ---
Progress Note (short form) - Note Progress Note: Chief Complaint: Events noted, notes reviewed. awake and alert, denies any chest pain or dyspnea History of Present Illness: Seen and examined. Events noted, notes reviewed. awake and alert, denies any chest pain or dyspnea Echocardiography dated 05/20/17 revealed normal LV size and systolic function with no significant valvular pathology - Current Medication List Current Medications Acetaminophen (Tylenol -) 650 mg PO Q6H PRN PRN Reason: PAIN Apixaban (Eliquis -) 5 mg PO BID [facility] Last Admin: 07/09/17 09:33 Dose: 5 mg Artificial Tears (Artificial Tears) 1 drop OU BID PRN PRN Reason: DRY EYES Bicalutamide (Casodex -) 50 mg PO DAILY [facility] Last Admin: 07/09/17 09:33 Dose: 50 mg Diltiazem HCl (Cardizem Cd -) 240 mg PO DAILY [facility] Last Admin: 07/09/17 09:33 Dose: 240 mg Donepezil HCl (Aricept -) 5 mg PO DAILY [facility] Last Admin: 07/09/17 09:33 Dose: 5 mg Nicotine (Nicoderm Patch -) 14 mg TD DAILY [facility] Last Admin: 07/09/17 09:33 Dose: 14 mg Pantoprazole Sodium (Protonix -) 40 mg PO DAILY [facility] Last Admin: 07/09/17 09:33 Dose: 40 mg Polyethylene Glycol (Miralax (For Daily Use) -) 17 gm PO DAILY [facility] Last Admin: 07/09/17 09:33 Dose: 17 gm - Objective Vital Signs: Last Vital Signs Temp Pulse Resp BP Pulse Ox 98.8 F 78 20 136/73 97 07/09/17 07:32 07/09/17 07:32 07/09/17 07:32 07/09/17 06:00 07/08/17 21:00 Intake & Output 07/06/17 07/07/17 07/08/17 07/09/17 23:59 23:59 23:59 23:59 Intake Total 50219 4850 780 Output Total 28385 2450 Balance -9300 2400 780 Neck: Supple Negative JVD No Bruit Cardiovascular: S1 S2 Irregularly Irregular No Murmurs, Clicks or Gallops Respiratory: Diminished Breath sounds at the Bases Gastrointestinal: Soft Benign Normal Bowel Sounds Ext: No Edema Labs: CBC, BMP 07/09/17 06:00 09/26/17 06:00 Assessment/Plan ASSESSMENT: 1. UTI with toxic metabolic encephelopathy, resolved 2. CAD angina pectoris, stable 3. Diastolic LV dysfunction with class 0-I NYHA classification LV congestive heart failure, compensated/euvolemic 4. Permanent atrial fibrillation on chronic A/C with NOAC's/Eliquis 5. HTN 6. DM 7. COPD/emphysema 8. CKD 9. Prostate carcinoma, causing extrinsic ureteral compression and hydronephrosis post intervention 10. Anemia PLAN: 1. Continue Cardizem CD 2. Continue Eliquis with close monitoring of CBC 3. Consider ACEI or ARB once renal function stabilizes 4. Continue to monitor renal function closely Caro Ordoñez MD
--- NOTE | 2017-07-09 10:43 | PN ---
Progress Note, Physician Chief Complaint: UTI,AMS History of Present Illness: NAD, in bed, mental status improved S/P ureteral stent exchange - Current Medication List Current Medications: Active Medications Acetaminophen (Tylenol -) 650 mg PO Q6H PRN PRN Reason: PAIN Apixaban (Eliquis -) 5 mg PO BID [facility] Last Admin: 07/09/17 09:33 Dose: 5 mg Artificial Tears (Artificial Tears) 1 drop OU BID PRN PRN Reason: DRY EYES Bicalutamide (Casodex -) 50 mg PO DAILY [facility] Last Admin: 07/09/17 09:33 Dose: 50 mg Diltiazem HCl (Cardizem Cd -) 240 mg PO DAILY [facility] Last Admin: 07/09/17 09:33 Dose: 240 mg Donepezil HCl (Aricept -) 5 mg PO DAILY [facility] Last Admin: 07/09/17 09:33 Dose: 5 mg Nicotine (Nicoderm Patch -) 14 mg TD DAILY [facility] Last Admin: 07/09/17 09:33 Dose: 14 mg Pantoprazole Sodium (Protonix -) 40 mg PO DAILY [facility] Last Admin: 07/09/17 09:33 Dose: 40 mg Polyethylene Glycol (Miralax (For Daily Use) -) 17 gm PO DAILY [facility] Last Admin: 07/09/17 09:33 Dose: 17 gm - Objective Vital Signs: Vital Signs Temperature 98.8 F 07/09/17 07:32 Pulse Rate 78 07/09/17 07:32 Respiratory Rate 20 07/09/17 07:32 Blood Pressure 136/73 07/09/17 06:00 O2 Sat by Pulse Oximetry (%) 97 07/08/17 21:00 Constitutional: Yes: Well Nourished, No Distress, Calm Cardiovascular: Yes: Regular Rate and Rhythm Respiratory: Yes: Regular Gastrointestinal: Yes: WNL Musculoskeletal: Yes: WNL Extremities: Yes: WNL Edema: No Peripheral Pulses WNL: Yes Neurological: Yes: Alert Psychiatric: Yes: Alert Labs: CBC, BMP 07/09/17 06:00 07/09/17 06:00 INR, PTT INR 1.89 (0.82-1.09) H D 06/25/17 15:37 Problem List - Problems (1) Generalized weakness Assessment/Plan: -improved -Physical therapy Code(s): R53.1 - WEAKNESS (2) Adenocarcinoma of prostate Assessment/Plan: -on casodex -recommended Lupron by urology monthly Code(s): C61 - MALIGNANT NEOPLASM OF PROSTATE (3) Delirium Assessment/Plan: -Improved -Brain MRI negative -Seen by neurology and psychiatry -on Donepezil 5mg , tolerating well -He was placed on seroquel after an episode of agitation and confusion post stent placement, which is very likely due to acute delirium secondary to anesthesia. Would monitor patient off seroquel. Code(s): R41.0 - DISORIENTATION, UNSPECIFIED (4) Orthostatic hypotension Assessment/Plan: -improved with compression stockings -seen by cardiology Code(s): I95.1 - ORTHOSTATIC HYPOTENSION (5) Atrial fibrillation with RVR Assessment/Plan: -chronic, controlled -on eliquis Code(s): I48.91 - UNSPECIFIED ATRIAL FIBRILLATION (6) Hydronephrosis Assessment/Plan: -Renal U/S-moderate right hydronephrosis, which was present on previous imaging as well. -S/P Right ureteral stent exhange -repeat U/S renal shows new left hydronephrosis and no change in right hydronephrosis, would consult Urology again. Code(s): N13.30 - UNSPECIFIED HYDRONEPHROSIS Qualifiers: Hydronephrosis type: unspecified Qualified Code(s): N13.30 - Unspecified hydronephrosis Assessment/Plan S/P exchange right ureteral stent and awaiting bed at SNF/NH closer to where daughter lives. Spoke to daughter over the phone. Informed landscape architect and planner. Daughter is willing to pay for the transportation.
--- NOTE | 2017-07-09 14:39 | PATH ---
Surgical Pathology Report Patient Name: EFREN BARKSDALE Med. Rec. #: [id number] /Age/Gender: 1940 (Age: 76) / M Account: [id number] Location: [facility] Taken: 07/08/2017 Received: 07/08/2017 Reported: 07/09/2017 Physicians: Terri Rico M.D. Specimen(s) Received A: OLD STENT RIGHT SIDE B: PROSTATE TISSUE Clinical History Prostate neoplasm with right hydronephrosis Final Diagnosis A. OLD STENT, RIGHT SIDE, REMOVAL: STENT (GROSS EXAM). B. PROSTATE TISSUE, TUR: FRAGMENTS OF BENIGN-APPEARING FIBROMUSCULAR PROSTATE STROMAL TISSUE WITH FIBRINOHEMORRHAGIC MATERIAL AND FRAGMENTS OF BENIGN APPEARING SQUAMOUS EPITHELIUM. Electronically Signed Easton Whitlock M.D. Gross Description A. Received is unfixed, labeled "old stent right side" is a 30 cm in length and 0.2 cm in diameter blue a coiled cube consistent with a stent. The specimen is for gross examination only. B. Resection formalin, labeled "prostate tissue" and multiple fragments of valdez-brown tissue ranging from 0.1-0.2 cm greatest dimension. The formalin is filtered, the specimen is submitted entirely in one cassette. AF/07/08/2017 final/07/08/2017
--- NOTE | 2017-07-09 14:45 | PATH ---
Cytology Non-Gynecological Report Patient Name: EFREN BARKSDALE Med. Rec. #: [id number] /Age/Gender: 1940 (Age: 76) / M Account: [id number] Location: [facility] Taken: 07/05/2017 Received: 07/08/2017 Reported: 07/09/2017 Physicians: Maurliio Sosa M.D. Specimen(s) Received URINE VOIDED Clinical History Prostate cancer Final Diagnosis URINE CYTOLOGY: SATISFACTORY FOR EVALUATION. DEGENERATED UROTHELIAL CELLS AND NECROINFLAMMATORY DEBRIS. ABUNDANT DEGENERATED RED BLOOD CELLS. Electronically Signed Easton Whitlock M.D. Gross Description Received is 50 cc of yellow fluid fresh. Two cytofunnel slides are made.
--- NOTE | 2017-07-09 15:16 | PN ---
Progress Note (short form) - Note Progress Note: Renal Follow up for CKD Pt seen and examined at the bedside awake and alert no acute complaints denies any flank pain making urine no sob, chest pain Vital Signs Temperature 97.4 F L 07/09/17 14:09 Pulse Rate 82 07/09/17 14:09 Respiratory Rate 20 07/09/17 14:09 Blood Pressure 119/73 07/09/17 14:09 O2 Sat by Pulse Oximetry (%) 97 07/08/17 21:00 Intake & Output 07/06/17 07/07/17 07/08/17 07/09/17 23:59 23:59 23:59 23:59 Intake Total 11575 4850 780 300 Output Total 17459 2450 Balance -9300 2400 780 300 Gen: NAD, awake and alert CVS: RRR Lungs: CTA, no rales or wheeze Abd: soft NT/ND Ext: No edema CBC, BMP 07/09/17 06:00 07/09/17 06:00 Current Medications Acetaminophen (Tylenol -) 650 mg PO Q6H PRN PRN Reason: PAIN Apixaban (Eliquis -) 5 mg PO BID [facility] Last Admin: 07/09/17 09:33 Dose: 5 mg Artificial Tears (Artificial Tears) 1 drop OU BID PRN PRN Reason: DRY EYES Bicalutamide (Casodex -) 50 mg PO DAILY [facility] Last Admin: 07/09/17 09:33 Dose: 50 mg Diltiazem HCl (Cardizem Cd -) 240 mg PO DAILY [facility] Last Admin: 07/09/17 09:33 Dose: 240 mg Donepezil HCl (Aricept -) 5 mg PO DAILY [facility] Last Admin: 07/09/17 09:33 Dose: 5 mg Nicotine (Nicoderm Patch -) 14 mg TD DAILY [facility] Last Admin: 07/09/17 09:33 Dose: 14 mg Pantoprazole Sodium (Protonix -) 40 mg PO DAILY [facility] Last Admin: 07/09/17 09:33 Dose: 40 mg Polyethylene Glycol (Miralax (For Daily Use) -) 17 gm PO DAILY [facility] Last Admin: 07/09/17 09:33 Dose: 17 gm A/P 66 year old gentleman with PMhx of COPD, Diverticulitis, DM, 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 #Hx of SILAS/CKD Stage 3 Renal function stable s/p cysto, JJ stent replacement and Plasma vaporization of the Prostate repeat US shows persistent hydronephrosis on the right and the development of a mild left hydronephrosis urology to follow up ? if truly a functional obstruction given stable renal function #AMS/Delirium on seroquel MRI w/o acute pathology #UTI/leukocytosis off Abx #Prostate CA/Obstructive uropathy urology follow up continue Casodex for prostate Ca Thank you will follow
[2017-07-10 07:45] LABS: BASOPHIL 0.9 % (0-2.0); EOSINOPHIL 4.5 % (0-4.5); MCH 31.1 pg (25.7-33.7); MCHC 34.1 g/dl (32.0-35.9); MEAN CELL VOLUME 91.3 fl (80-96); MEAN PLT VOLUME 7.8 fl (7.5-11.1); NEUTROPHILS 73.1 % (42.8-82.8); PLATELET COUNT 337 K/MM3 (134-434); RDW 13.8 % (11.9-15.9); WHITE BLOOD COUNT 10.4 K/mm3 (4.0-10.0)
[2017-07-10 08:09] LABS: ALBUMIN 2.8 g/dl (3.4-5.0); ALK PHOS 128 U/L (45-117); ANION GAP 7 (8-16); BILIRUBIN,TOTAL 0.5 mg/dL (0.2-1.0); CALCIUM 9.6 mg/dL (8.5-10.1); CO2 32 mmol/L (21-32); CREATININE 1.3 mg/dL (0.7-1.3); GLUCOSE,RANDOM 106 mg/dL (74-106); SGOT/AST 13 U/L (15-37); SGPT/ALT 18 U/L (12-78)
[2017-07-10] MEDS ORDERED: PT OWN MED DRAWER 7, Y5N ONE (09:29)
[2017-07-10] MEDS: NICOTINE 14 MG/24 HOURS TOPICAL PATCH TD SCH (09:32)
[2017-07-10] MEDS: DONEPEZIL HCL 5 MG TABLET (FP) PO SCH (09:32)
[2017-07-10] MEDS: PANTOPRAZOLE 40 MG TABLET (FP) PO SCH (09:32)
[2017-07-10] MEDS: APIXABAN 5 MG TABLET PO SCH ×2 (09:34→21:02)
[2017-07-10] MEDS: BICALUTAMIDE 50 MG TABLET (FP) PO SCH (09:35)
[2017-07-10] MEDS: POLYETHYLENE GLYCOL 3350 119 GM BTL PO SCH (11:00)
--- NOTE | 2017-07-10 12:32 | PN ---
Progress Note (short form) - Note Progress Note: Renal Follow up for CKD Pt seen and examined at the bedside awake but confused no overnight events making urine Vital Signs Temperature 97.7 F 07/10/17 10:00 Pulse Rate 85 07/10/17 10:00 Respiratory Rate 20 07/10/17 10:00 Blood Pressure 137/69 07/10/17 10:00 O2 Sat by Pulse Oximetry (%) 97 07/10/17 09:00 Intake & Output 07/07/17 07/08/17 07/09/17 07/10/17 23:59 23:59 23:59 23:59 Intake Total 4850 780 400 437 Output Total 2450 Balance 2400 780 400 437 Gen: NAD, awake and alert CVS: RRR Lungs: CTA, no rales or wheeze Abd: soft NT/ND Ext: No edema CBC, BMP 07/10/17 06:00 07/10/17 06:00 Current Medications Acetaminophen (Tylenol -) 650 mg PO Q6H PRN PRN Reason: PAIN Apixaban (Eliquis -) 5 mg PO BID [facility] Last Admin: 07/10/17 09:34 Dose: 5 mg Artificial Tears (Artificial Tears) 1 drop OU BID PRN PRN Reason: DRY EYES Bicalutamide (Casodex -) 50 mg PO DAILY [facility] Last Admin: 07/10/17 09:35 Dose: 50 mg Diltiazem HCl (Cardizem Cd -) 240 mg PO DAILY [facility] Last Admin: 07/10/17 09:32 Dose: 240 mg Donepezil HCl (Aricept -) 5 mg PO DAILY [facility] Last Admin: 07/10/17 09:32 Dose: 5 mg Nicotine (Nicoderm Patch -) 14 mg TD DAILY [facility] Last Admin: 07/10/17 09:32 Dose: 14 mg Pantoprazole Sodium (Protonix -) 40 mg PO DAILY [facility] Last Admin: 07/10/17 09:32 Dose: 40 mg Polyethylene Glycol (Miralax (For Daily Use) -) 17 gm PO DAILY [facility] Last Admin: 07/09/17 09:33 Dose: 17 gm A/P 66 year old gentleman with PMhx of COPD, Diverticulitis, DM, 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 #Hx of SILAS/CKD Stage 3 Renal function stable s/p cysto, JJ stent replacement and Plasma vaporization of the Prostate awaiting urology follow up renal function stable so unlikely acute intervention is needed #AMS/Delirium on seroquel MRI w/o acute pathology #UTI/leukocytosis off Abx #Prostate CA/Obstructive uropathy urology follow up continue Casodex for prostate Ca Thank you will follow
--- NOTE | 2017-07-10 14:47 | PN ---
Progress Note, Physician Chief Complaint: UTI,AMS History of Present Illness: NAD, in bed, mental status improved S/P ureteral stent exchange - Current Medication List Current Medications: Active Medications Acetaminophen (Tylenol -) 650 mg PO Q6H PRN PRN Reason: PAIN Apixaban (Eliquis -) 5 mg PO BID [facility] Last Admin: 07/10/17 09:34 Dose: 5 mg Artificial Tears (Artificial Tears) 1 drop OU BID PRN PRN Reason: DRY EYES Bicalutamide (Casodex -) 50 mg PO DAILY [facility] Last Admin: 07/10/17 09:35 Dose: 50 mg Diltiazem HCl (Cardizem Cd -) 240 mg PO DAILY [facility] Last Admin: 07/10/17 09:32 Dose: 240 mg Donepezil HCl (Aricept -) 5 mg PO DAILY [facility] Last Admin: 07/10/17 09:32 Dose: 5 mg Nicotine (Nicoderm Patch -) 14 mg TD DAILY [facility] Last Admin: 07/10/17 09:32 Dose: 14 mg Pantoprazole Sodium (Protonix -) 40 mg PO DAILY [facility] Last Admin: 07/10/17 09:32 Dose: 40 mg Polyethylene Glycol (Miralax (For Daily Use) -) 17 gm PO DAILY [facility] Last Admin: 07/09/17 09:33 Dose: 17 gm - Objective Vital Signs: Vital Signs Temperature 97.7 F 07/10/17 14:02 Pulse Rate 86 07/10/17 14:02 Respiratory Rate 20 07/10/17 14:02 Blood Pressure 132/61 07/10/17 14:02 O2 Sat by Pulse Oximetry (%) 97 07/10/17 09:00 Constitutional: Yes: Well Nourished, No Distress, Calm Cardiovascular: Yes: Regular Rate and Rhythm Respiratory: Yes: Regular Extremities: Yes: WNL Edema: No Peripheral Pulses WNL: Yes Neurological: Yes: Alert Labs: CBC, BMP 07/10/17 06:00 07/10/17 06:00 INR, PTT INR 1.89 (0.82-1.09) H D 06/25/17 15:37 Problem List - Problems (1) Generalized weakness Assessment/Plan: -improved -Physical therapy Code(s): R53.1 - WEAKNESS (2) Adenocarcinoma of prostate Assessment/Plan: -on casodex -recommended Lupron by urology monthly, could be given outpatient even if the patient is in rehab Code(s): C61 - MALIGNANT NEOPLASM OF PROSTATE (3) Delirium Assessment/Plan: -Improved -Brain MRI negative -Seen by neurology and psychiatry -on Donepezil 5mg , tolerating well -He was placed on seroquel after an episode of agitation and confusion post stent placement, which is very likely due to acute delirium secondary to anesthesia. Would monitor patient off seroquel. Code(s): R41.0 - DISORIENTATION, UNSPECIFIED (4) Orthostatic hypotension Assessment/Plan: -improved with compression stockings -seen by cardiology Code(s): I95.1 - ORTHOSTATIC HYPOTENSION (5) Atrial fibrillation with RVR Assessment/Plan: -chronic, controlled -on eliquis Code(s): I48.91 - UNSPECIFIED ATRIAL FIBRILLATION (6) Hydronephrosis Assessment/Plan: -Renal U/S-moderate right hydronephrosis, which was present on previous imaging as well. -S/P Right ureteral stent exhange -repeat U/S renal shows new left hydronephrosis and no change in right hydronephrosis, would consult Urology again. Code(s): N13.30 - UNSPECIFIED HYDRONEPHROSIS Qualifiers: Hydronephrosis type: unspecified Qualified Code(s): N13.30 - Unspecified hydronephrosis Assessment/Plan S/P exchange right ureteral stent and awaiting bed at SNF/NH closer to where daughter lives. Spoke to daughter over the phone. Informed senior production planner. Daughter is willing to pay for the transportation. Spoke to daughter about Orchiectomy, she agrees to the plan to go ahead with the procedure vs receiving lupron injections, as he is being denied by [facility]
--- NOTE | 2017-07-10 16:46 | PN ---
Progress Note, Physician History of Present Illness: No complaints, denies hematuria. Post TUVP and right ureteral stent exchange POD #5 - Current Medication List Current Medications: Active Medications Acetaminophen (Tylenol -) 650 mg PO Q6H PRN PRN Reason: PAIN Apixaban (Eliquis -) 5 mg PO BID [facility] Last Admin: 07/10/17 09:34 Dose: 5 mg Artificial Tears (Artificial Tears) 1 drop OU BID PRN PRN Reason: DRY EYES Bicalutamide (Casodex -) 50 mg PO DAILY [facility] Last Admin: 07/10/17 09:35 Dose: 50 mg Diltiazem HCl (Cardizem Cd -) 240 mg PO DAILY [facility] Last Admin: 07/10/17 09:32 Dose: 240 mg Donepezil HCl (Aricept -) 5 mg PO DAILY [facility] Last Admin: 07/10/17 09:32 Dose: 5 mg Nicotine (Nicoderm Patch -) 14 mg TD DAILY [facility] Last Admin: 07/10/17 09:32 Dose: 14 mg Pantoprazole Sodium (Protonix -) 40 mg PO DAILY [facility] Last Admin: 07/10/17 09:32 Dose: 40 mg Polyethylene Glycol (Miralax (For Daily Use) -) 17 gm PO DAILY [facility] Last Admin: 07/09/17 09:33 Dose: 17 gm - Objective Vital Signs: Vital Signs Temperature 97.7 F 07/10/17 14:02 Pulse Rate 86 07/10/17 14:02 Respiratory Rate 20 07/10/17 14:02 Blood Pressure 132/61 07/10/17 14:02 O2 Sat by Pulse Oximetry (%) 97 07/10/17 09:00 Constitutional: Yes: No Distress, Calm Neck: Yes: Supple Cardiovascular: Yes: Pulse Irregular Respiratory: Yes: Regular, Diminished Gastrointestinal: Yes: Normal Bowel Sounds, Soft Edema: No Labs: CBC, BMP 07/10/17 06:00 07/10/17 06:00 INR, PTT INR 1.89 (0.82-1.09) H D 06/25/17 15:37 Problem List - Problems (1) Prostate cancer Code(s): C61 - MALIGNANT NEOPLASM OF PROSTATE (2) UTI (urinary tract infection) Code(s): N39.0 - URINARY TRACT INFECTION, SITE NOT SPECIFIED Qualifiers: Urinary tract infection type: site unspecified (3) Atrial fibrillation with RVR Code(s): I48.91 - UNSPECIFIED ATRIAL FIBRILLATION (4) Diabetes Code(s): E11.9 - TYPE 2 DIABETES MELLITUS WITHOUT COMPLICATIONS Qualifiers: Diabetes mellitus type: type 2 Diabetes mellitus complication status: without complication (5) Diastolic CHF Code(s): I50.30 - UNSPECIFIED DIASTOLIC (CONGESTIVE) HEART FAILURE Qualifiers : Congestive heart failure chronicity: chronic Qualified Code(s): I50.32 - Chronic diastolic (congestive) heart failure (6) HTN (hypertension) Code(s): I10 - ESSENTIAL (PRIMARY) HYPERTENSION Qualifiers: Hypertension type: essential hypertension Qualified Code(s): I10 - Essential (primary) hypertension (7) Hyperlipidemia associated with type 2 diabetes mellitus Code(s): E11.69 - TYPE 2 DIABETES MELLITUS WITH OTHER SPECIFIED COMPLICATION E78.5 - HYPERLIPIDEMIA, UNSPECIFIED (8) Gait disturbance Code(s): R26.9 - UNSPECIFIED ABNORMALITIES OF GAIT AND MOBILITY (9) Toxic metabolic encephalopathy Code(s): G92 - TOXIC ENCEPHALOPATHY (10) Hydronephrosis Code(s): N13.30 - UNSPECIFIED HYDRONEPHROSIS Qualifiers: Hydronephrosis type: unspecified Qualified Code(s): N13.30 - Unspecified hydronephrosis Assessment/Plan 05/20/2017 Echo: Normal LV size and fxn without sig valve abnl 1. UTI with toxic metabolic encephelopathy, resolved 2. CAD angina pectoris, stable 3. Diastolic LV dysfunction with class 0-I NYHA classification LV congestive heart failure, compensated/euvolemic 4. Permanent atrial fibrillation on chronic A/C with NOAC's/Eliquis 5. HTN 6. DM 7. COPD/emphysema 8. CKD 9. Prostate carcinoma, causing extrinsic ureteral compression and hydronephrosis post intervention 10. Anemia PLAN: 1. Continue Cardizem CD 240 qd 2. Continue Eliquis 5 bid with close monitoring of CBC 3. Consider ACEI or ARB once renal function stabilizes 4. Continue to monitor renal function closely
[2017-07-11] MEDS: ACETAMINOPHEN 325 MG TABLET (FP) PO PRN (03:36)
--- NOTE | 2017-07-11 09:10 | PN ---
Progress Note (short form) - Note Progress Note: 76 year old male Post TUVP with diag of Ca of the Prostate with indwelling ureteral stent is incontinent. He is one week post op. He has no complaints. Wears a diaper. No acute urological problem at present. Recent sono shows bilateral hydro. Also noted was plan for orchiectomy. Will discuss with the daughter. Pt can be discharged to [facility] and any contemplated procedure can be done as outpatient. Will follow as necessary. Thank you
[2017-07-11] MEDS ORDERED: PT OWN MED DRAWER 7, Y5N ONE ×2 (09:51→19:34)
[2017-07-11] MEDS: POLYETHYLENE GLYCOL 3350 119 GM BTL PO SCH ×2 (10:00→20:54)
[2017-07-11] MEDS: DONEPEZIL HCL 5 MG TABLET (FP) PO SCH (10:02)
[2017-07-11] MEDS: BICALUTAMIDE 50 MG TABLET (FP) PO SCH (10:04)
[2017-07-11] MEDS: APIXABAN 5 MG TABLET PO SCH ×2 (10:04→22:20)
[2017-07-11] MEDS: NICOTINE 14 MG/24 HOURS TOPICAL PATCH TD SCH (10:05)
[2017-07-11] MEDS: PANTOPRAZOLE 40 MG TABLET (FP) PO SCH (10:08)
--- NOTE | 2017-07-11 11:16 | PN ---
Progress Note, Physician Chief Complaint: UTI,AMS History of Present Illness: NAD, in bed, mental status improved S/P ureteral stent exchange - Current Medication List Current Medications: Active Medications Acetaminophen (Tylenol -) 650 mg PO Q6H PRN PRN Reason: PAIN Last Admin: 07/11/17 03:36 Dose: 650 mg Apixaban (Eliquis -) 5 mg PO BID [facility] Last Admin: 07/11/17 10:04 Dose: 5 mg Artificial Tears (Artificial Tears) 1 drop OU BID PRN PRN Reason: DRY EYES Bicalutamide (Casodex -) 50 mg PO DAILY [facility] Last Admin: 07/11/17 10:04 Dose: 50 mg Diltiazem HCl (Cardizem Cd -) 240 mg PO DAILY [facility] Last Admin: 07/11/17 10:03 Dose: 240 mg Donepezil HCl (Aricept -) 5 mg PO DAILY [facility] Last Admin: 07/11/17 10:02 Dose: 5 mg Nicotine (Nicoderm Patch -) 14 mg TD DAILY [facility] Last Admin: 07/11/17 10:05 Dose: 14 mg Pantoprazole Sodium (Protonix -) 40 mg PO DAILY [facility] Last Admin: 07/11/17 10:08 Dose: 40 mg Polyethylene Glycol (Miralax (For Daily Use) -) 17 gm PO DAILY [facility] Last Admin: 07/11/17 10:00 Dose: 17 gm - Objective Vital Signs: Vital Signs Temperature 98.1 F 07/11/17 09:48 Pulse Rate 85 07/11/17 09:48 Respiratory Rate 18 07/11/17 09:48 Blood Pressure 136/72 07/11/17 09:48 O2 Sat by Pulse Oximetry (%) 96 07/10/17 20:24 Constitutional: Yes: Well Nourished, No Distress, Calm Cardiovascular: Yes: Regular Rate and Rhythm Respiratory: Yes: Regular Labs: CBC, BMP 07/10/17 06:00 07/10/17 06:00 INR, PTT INR 1.89 (0.82-1.09) H D 06/25/17 15:37 Problem List - Problems (1) Generalized weakness Assessment/Plan: -improved -Physical therapy Code(s): R53.1 - WEAKNESS (2) Adenocarcinoma of prostate Assessment/Plan: -on casodex -recommended Lupron by urology monthly, could be given outpatient even if the patient is in rehab Code(s): C61 - MALIGNANT NEOPLASM OF PROSTATE (3) Delirium Assessment/Plan: -Improved -Brain MRI negative -Seen by neurology and psychiatry -on Donepezil 5mg , tolerating well -He was placed on seroquel after an episode of agitation and confusion post stent placement, which is very likely due to acute delirium secondary to anesthesia. Would monitor patient off seroquel. Code(s): R41.0 - DISORIENTATION, UNSPECIFIED (4) Orthostatic hypotension Assessment/Plan: -improved with compression stockings -seen by cardiology Code(s): I95.1 - ORTHOSTATIC HYPOTENSION (5) Atrial fibrillation with RVR Assessment/Plan: -chronic, controlled -on eliquis Code(s): I48.91 - UNSPECIFIED ATRIAL FIBRILLATION (6) Hydronephrosis Assessment/Plan: -Renal U/S-moderate right hydronephrosis, which was present on previous imaging as well. -S/P Right ureteral stent exhange -repeat U/S renal shows new left hydronephrosis and no change in right hydronephrosis, would consult Urology again. Code(s): N13.30 - UNSPECIFIED HYDRONEPHROSIS Qualifiers: Hydronephrosis type: unspecified Qualified Code(s): N13.30 - Unspecified hydronephrosis Assessment/Plan S/P exchange right ureteral stent and awaiting bed at SNF/NH closer to where daughter lives. Spoke to daughter over the phone. Informed corporate meeting planner. Daughter is willing to pay for the transportation. Spoke to daughter about Orchiectomy, she agrees to the plan to go ahead with the procedure vs receiving lupron injections, as he is being denied by [facility]. As per urology the procedure could be done as outpatient. would speak to his daughter about it.
--- NOTE | 2017-07-11 11:21 | PN ---
Progress Note, Physician History of Present Illness: No complaints, denies hematuria. Post TUVP and right ureteral stent exchange POD #6 - Current Medication List Current Medications: Active Medications Acetaminophen (Tylenol -) 650 mg PO Q6H PRN PRN Reason: PAIN Last Admin: 07/11/17 03:36 Dose: 650 mg Apixaban (Eliquis -) 5 mg PO BID [facility] Last Admin: 07/11/17 10:04 Dose: 5 mg Artificial Tears (Artificial Tears) 1 drop OU BID PRN PRN Reason: DRY EYES Bicalutamide (Casodex -) 50 mg PO DAILY [facility] Last Admin: 07/11/17 10:04 Dose: 50 mg Diltiazem HCl (Cardizem Cd -) 240 mg PO DAILY [facility] Last Admin: 07/11/17 10:03 Dose: 240 mg Donepezil HCl (Aricept -) 5 mg PO DAILY [facility] Last Admin: 07/11/17 10:02 Dose: 5 mg Nicotine (Nicoderm Patch -) 14 mg TD DAILY [facility] Last Admin: 07/11/17 10:05 Dose: 14 mg Pantoprazole Sodium (Protonix -) 40 mg PO DAILY [facility] Last Admin: 07/11/17 10:08 Dose: 40 mg Polyethylene Glycol (Miralax (For Daily Use) -) 17 gm PO DAILY [facility] Last Admin: 07/11/17 10:00 Dose: 17 gm - Objective Vital Signs: Vital Signs Temperature 98.1 F 07/11/17 09:48 Pulse Rate 85 07/11/17 09:48 Respiratory Rate 18 07/11/17 09:48 Blood Pressure 136/72 07/11/17 09:48 O2 Sat by Pulse Oximetry (%) 96 07/10/17 20:24 Constitutional: Yes: No Distress, Calm Neck: Yes: Supple Cardiovascular: Yes: Pulse Irregular Respiratory: Yes: Regular, Diminished Gastrointestinal: Yes: Normal Bowel Sounds, Soft, Abdomen, Obese Edema: No Labs: CBC, BMP 07/10/17 06:00 07/10/17 06:00 INR, PTT INR 1.89 (0.82-1.09) H D 06/25/17 15:37 Problem List - Problems (1) Prostate cancer Code(s): C61 - MALIGNANT NEOPLASM OF PROSTATE (2) UTI (urinary tract infection) Code(s): N39.0 - URINARY TRACT INFECTION, SITE NOT SPECIFIED Qualifiers: Urinary tract infection type: site unspecified (3) Atrial fibrillation with RVR Code(s): I48.91 - UNSPECIFIED ATRIAL FIBRILLATION (4) Diabetes Code(s): E11.9 - TYPE 2 DIABETES MELLITUS WITHOUT COMPLICATIONS Qualifiers: Diabetes mellitus type: type 2 Diabetes mellitus complication status: without complication (5) Diastolic CHF Code(s): I50.30 - UNSPECIFIED DIASTOLIC (CONGESTIVE) HEART FAILURE Qualifiers : Congestive heart failure chronicity: chronic Qualified Code(s): I50.32 - Chronic diastolic (congestive) heart failure (6) HTN (hypertension) Code(s): I10 - ESSENTIAL (PRIMARY) HYPERTENSION Qualifiers: Hypertension type: essential hypertension Qualified Code(s): I10 - Essential (primary) hypertension (7) Hyperlipidemia associated with type 2 diabetes mellitus Code(s): E11.69 - TYPE 2 DIABETES MELLITUS WITH OTHER SPECIFIED COMPLICATION E78.5 - HYPERLIPIDEMIA, UNSPECIFIED (8) Gait disturbance Code(s): R26.9 - UNSPECIFIED ABNORMALITIES OF GAIT AND MOBILITY (9) Toxic metabolic encephalopathy Code(s): G92 - TOXIC ENCEPHALOPATHY (10) Hydronephrosis Code(s): N13.30 - UNSPECIFIED HYDRONEPHROSIS Qualifiers: Hydronephrosis type: unspecified Qualified Code(s): N13.30 - Unspecified hydronephrosis Assessment/Plan 05/20/2017 Echo: Normal LV size and fxn without sig valve abnl 1. UTI with toxic metabolic encephelopathy, resolved 2. CAD angina pectoris, stable 3. Diastolic LV dysfunction with class 0-I NYHA classification LV congestive heart failure, compensated/euvolemic 4. Permanent atrial fibrillation on chronic A/C with NOAC's/Eliquis 5. HTN 6. DM 7. COPD/emphysema 8. CKD 9. Prostate carcinoma, causing extrinsic ureteral compression and hydronephrosis post intervention 10. Anemia PLAN: 1. Continue Cardizem CD 240 qd 2. Continue Eliquis 5 bid with close monitoring of CBC 3. Consider ACEI or ARB once renal function stabilizes 4. Continue to monitor renal function closely
--- NOTE | 2017-07-11 12:14 | PN ---
Progress Note (short form) - Note Progress Note: Renal Follow up for CKD Pt seen and examined at the bedside awake and alert no overnight events Vital Signs Temperature 98.1 F 07/11/17 09:48 Pulse Rate 85 07/11/17 09:48 Respiratory Rate 18 07/11/17 09:48 Blood Pressure 136/72 07/11/17 09:48 O2 Sat by Pulse Oximetry (%) 96 07/10/17 20:24 Intake & Output 07/08/17 07/09/17 07/10/17 07/11/17 23:59 23:59 23:59 23:59 Intake Total 780 400 877 Balance 780 400 877 Gen: NAD, awake and alert CVS: RRR Lungs: CTA, no rales or wheeze Abd: soft NT/ND Ext: No edema CBC, BMP 07/10/17 06:00 07/10/17 06:00 Laboratory Tests 07/09/17 07/10/17 06:00 06:00 Calcium 9.3 9.6 Phosphorus 3.5 Magnesium 2.2 Albumin 2.6 L 2.8 L Current Medications Acetaminophen (Tylenol -) 650 mg PO Q6H PRN PRN Reason: PAIN Last Admin: 07/11/17 03:36 Dose: 650 mg Apixaban (Eliquis -) 5 mg PO BID [facility] Last Admin: 07/11/17 10:04 Dose: 5 mg Artificial Tears (Artificial Tears) 1 drop OU BID PRN PRN Reason: DRY EYES Bicalutamide (Casodex -) 50 mg PO DAILY [facility] Last Admin: 07/11/17 10:04 Dose: 50 mg Diltiazem HCl (Cardizem Cd -) 240 mg PO DAILY [facility] Last Admin: 07/11/17 10:03 Dose: 240 mg Donepezil HCl (Aricept -) 5 mg PO DAILY [facility] Last Admin: 07/11/17 10:02 Dose: 5 mg Nicotine (Nicoderm Patch -) 14 mg TD DAILY [facility] Last Admin: 07/11/17 10:05 Dose: 14 mg Pantoprazole Sodium (Protonix -) 40 mg PO DAILY [facility] Last Admin: 07/11/17 10:08 Dose: 40 mg Polyethylene Glycol (Miralax (For Daily Use) -) 17 gm PO DAILY [facility] Last Admin: 07/11/17 10:00 Dose: 17 gm A/P 66 year old gentleman with PMhx of COPD, Diverticulitis, DM, Recent SILAS secondary to obstructive nephropathy (bladder inlet obstruction), Recently diagnosed prostate Ca who presented with AMS at the [facility] and found to have suspected UTI and Delirium. #Hx of SILAS/CKD Stage 3 Renal function stable as of yesterday, no new labs today check BMP in AM s/p cysto, JJ stent replacement and Plasma vaporization of the Prostate Urology following, outpatient intervention #AMS/Delirium on seroquel MRI w/o acute pathology #UTI/leukocytosis off Abx #Prostate CA/Obstructive uropathy urology follow up continue Casodex for prostate Ca Thank you will follow
--- NOTE | 2017-07-11 22:52 | PN ---
Progress Note (short form) - Note Progress Note: Patient seen and examined Denies any complaints AFVSS Cor: RSR, No murmurs, No gallops Lungs: Clear to P&A Abd: Soft, Normal bowel sounds, No organomegaly Ext:No significant edema LAbs/medsd reviewed A/P 76 yr old man with dementia, prostate cancer on casodex, AMS, afib on ac, admitted for AMS and SILAS being treated for UTI. Locally advanced Prostate ca. On casodex s/p TUVP, ureteral stent for obstructive uropathy ? RT but patient with poor PS, dementia
[2017-07-12 07:34] LABS: ANION GAP 6 (8-16); CO2 31 mmol/L (21-32); CREATININE 1.5 mg/dL (0.7-1.3); GLUCOSE,RANDOM 95 mg/dL (74-106); MAGNESIUM 2.2 mg/dL (1.8-2.4); PHOSPHOROUS 3.4 mg/dL (2.5-4.9)
[2017-07-12] MEDS ORDERED: PT OWN MED DRAWER 7, Y5N ONE ×2 (09:11→21:11)
[2017-07-12] MEDS: DONEPEZIL HCL 5 MG TABLET (FP) PO SCH (09:18)
[2017-07-12] MEDS: BICALUTAMIDE 50 MG TABLET (FP) PO SCH (09:18)
[2017-07-12] MEDS: NICOTINE 14 MG/24 HOURS TOPICAL PATCH TD SCH (09:18)
[2017-07-12] MEDS: PANTOPRAZOLE 40 MG TABLET (FP) PO SCH (09:18)
[2017-07-12] MEDS: APIXABAN 5 MG TABLET PO SCH ×2 (09:20→21:11)
[2017-07-12] MEDS: POLYETHYLENE GLYCOL 3350 119 GM BTL PO SCH (10:03)
--- NOTE | 2017-07-12 10:25 | PN ---
Progress Note, Physician Chief Complaint: UTI,AMS History of Present Illness: NAD, in bed, mental status improved S/P ureteral stent exchange - Current Medication List Current Medications: Active Medications Acetaminophen (Tylenol -) 650 mg PO Q6H PRN PRN Reason: PAIN Last Admin: 07/11/17 03:36 Dose: 650 mg Apixaban (Eliquis -) 5 mg PO BID [facility] Last Admin: 07/12/17 09:20 Dose: 5 mg Artificial Tears (Artificial Tears) 1 drop OU BID PRN PRN Reason: DRY EYES Bicalutamide (Casodex -) 50 mg PO DAILY [facility] Last Admin: 07/12/17 09:18 Dose: 50 mg Diltiazem HCl (Cardizem Cd -) 240 mg PO DAILY [facility] Last Admin: 07/12/17 09:18 Dose: 240 mg Donepezil HCl (Aricept -) 5 mg PO DAILY [facility] Last Admin: 07/12/17 09:18 Dose: 5 mg Nicotine (Nicoderm Patch -) 14 mg TD DAILY [facility] Last Admin: 07/12/17 09:18 Dose: 14 mg Pantoprazole Sodium (Protonix -) 40 mg PO DAILY [facility] Last Admin: 07/12/17 09:18 Dose: 40 mg Polyethylene Glycol (Miralax (For Daily Use) -) 17 gm PO DAILY [facility] Last Admin: 07/12/17 10:03 Dose: 17 gm - Objective Vital Signs: Vital Signs Temperature 98.7 F 07/12/17 06:00 Pulse Rate 80 07/12/17 06:00 Respiratory Rate 20 07/12/17 06:00 Blood Pressure 152/61 07/12/17 06:00 O2 Sat by Pulse Oximetry (%) 97 07/11/17 21:00 Constitutional: Yes: Well Nourished, No Distress, Calm Cardiovascular: Yes: Regular Rate and Rhythm Respiratory: Yes: Regular Musculoskeletal: Yes: WNL Extremities: Yes: WNL Edema: No Peripheral Pulses WNL: Yes Neurological: Yes: Alert, Confusion Psychiatric: Yes: Alert Labs: CBC, BMP 07/10/17 06:00 07/12/17 06:15 INR, PTT INR 1.89 (0.82-1.09) H D 06/25/17 15:37 Problem List - Problems (1) Generalized weakness Assessment/Plan: -improved -Physical therapy Code(s): R53.1 - WEAKNESS (2) Adenocarcinoma of prostate Assessment/Plan: -on casodex -recommended Lupron by urology monthly, could be given outpatient even if the patient is in rehab Code(s): C61 - MALIGNANT NEOPLASM OF PROSTATE (3) Delirium Assessment/Plan: -Improved -Brain MRI negative -Seen by neurology and psychiatry -on Donepezil 5mg , tolerating well -He was placed on seroquel after an episode of agitation and confusion post stent placement, which is very likely due to acute delirium secondary to anesthesia. Would monitor patient off seroquel. Code(s): R41.0 - DISORIENTATION, UNSPECIFIED (4) Orthostatic hypotension Assessment/Plan: -improved with compression stockings -seen by cardiology Code(s): I95.1 - ORTHOSTATIC HYPOTENSION (5) Atrial fibrillation with RVR Assessment/Plan: -chronic, controlled -on eliquis Code(s): I48.91 - UNSPECIFIED ATRIAL FIBRILLATION (6) Hydronephrosis Assessment/Plan: -Renal U/S-moderate right hydronephrosis, which was present on previous imaging as well. -S/P Right ureteral stent exhange -repeat U/S renal shows new left hydronephrosis and no change in right hydronephrosis, would consult Urology again. Code(s): N13.30 - UNSPECIFIED HYDRONEPHROSIS Qualifiers: Hydronephrosis type: unspecified Qualified Code(s): N13.30 - Unspecified hydronephrosis Assessment/Plan S/P exchange right ureteral stent and awaiting bed at SNF/[facility] closer to where daughter lives. Spoke to daughter over the phone. Informed systems planner. Daughter is willing to pay for the transportation. Spoke to daughter about Orchiectomy, she agrees to the plan to go ahead with the procedure vs receiving lupron injections, as he is being denied by [facility]. As per urology the procedure could be done as outpatient. Daughter prefers to do the procedure during his hospital stay and have him transferred up to [facility] where daughter lives.
--- NOTE | 2017-07-12 12:41 | PN ---
Progress Note, Physician History of Present Illness: No complaints, denies hematuria. Post TUVP and right ureteral stent exchange POD #7 - Current Medication List Current Medications: Active Medications Acetaminophen (Tylenol -) 650 mg PO Q6H PRN PRN Reason: PAIN Last Admin: 07/11/17 03:36 Dose: 650 mg Apixaban (Eliquis -) 5 mg PO BID [facility] Last Admin: 07/12/17 09:20 Dose: 5 mg Artificial Tears (Artificial Tears) 1 drop OU BID PRN PRN Reason: DRY EYES Bicalutamide (Casodex -) 50 mg PO DAILY [facility] Last Admin: 07/12/17 09:18 Dose: 50 mg Diltiazem HCl (Cardizem Cd -) 240 mg PO DAILY [facility] Last Admin: 07/12/17 09:18 Dose: 240 mg Donepezil HCl (Aricept -) 5 mg PO DAILY [facility] Last Admin: 07/12/17 09:18 Dose: 5 mg Nicotine (Nicoderm Patch -) 14 mg TD DAILY [facility] Last Admin: 07/12/17 09:18 Dose: 14 mg Pantoprazole Sodium (Protonix -) 40 mg PO DAILY [facility] Last Admin: 07/12/17 09:18 Dose: 40 mg Polyethylene Glycol (Miralax (For Daily Use) -) 17 gm PO DAILY [facility] Last Admin: 07/12/17 10:03 Dose: 17 gm - Objective Vital Signs: Vital Signs Temperature 98.3 F 07/12/17 09:00 Pulse Rate 75 07/12/17 11:10 Respiratory Rate 20 07/12/17 09:00 Blood Pressure 124/68 07/12/17 09:00 O2 Sat by Pulse Oximetry (%) 98 07/12/17 11:10 Constitutional: Yes: No Distress, Calm Neck: Yes: Supple Cardiovascular: Yes: Pulse Irregular Respiratory: Yes: Regular, Diminished Gastrointestinal: Yes: Normal Bowel Sounds, Soft Edema: No Labs: CBC, BMP 07/10/17 06:00 07/12/17 06:15 INR, PTT INR 1.89 (0.82-1.09) H D 06/25/17 15:37 Problem List - Problems (1) Prostate cancer Code(s): C61 - MALIGNANT NEOPLASM OF PROSTATE (2) UTI (urinary tract infection) Code(s): N39.0 - URINARY TRACT INFECTION, SITE NOT SPECIFIED Qualifiers: Urinary tract infection type: site unspecified (3) Atrial fibrillation with RVR Code(s): I48.91 - UNSPECIFIED ATRIAL FIBRILLATION (4) Diabetes Code(s): E11.9 - TYPE 2 DIABETES MELLITUS WITHOUT COMPLICATIONS Qualifiers: Diabetes mellitus type: type 2 Diabetes mellitus complication status: without complication (5) Diastolic CHF Code(s): I50.30 - UNSPECIFIED DIASTOLIC (CONGESTIVE) HEART FAILURE Qualifiers : Congestive heart failure chronicity: chronic Qualified Code(s): I50.32 - Chronic diastolic (congestive) heart failure (6) HTN (hypertension) Code(s): I10 - ESSENTIAL (PRIMARY) HYPERTENSION Qualifiers: Hypertension type: essential hypertension Qualified Code(s): I10 - Essential (primary) hypertension (7) Hyperlipidemia associated with type 2 diabetes mellitus Code(s): E11.69 - TYPE 2 DIABETES MELLITUS WITH OTHER SPECIFIED COMPLICATION E78.5 - HYPERLIPIDEMIA, UNSPECIFIED (8) Gait disturbance Code(s): R26.9 - UNSPECIFIED ABNORMALITIES OF GAIT AND MOBILITY (9) Toxic metabolic encephalopathy Code(s): G92 - TOXIC ENCEPHALOPATHY (10) Hydronephrosis Code(s): N13.30 - UNSPECIFIED HYDRONEPHROSIS Qualifiers: Hydronephrosis type: unspecified Qualified Code(s): N13.30 - Unspecified hydronephrosis Assessment/Plan 05/20/2017 Echo: Normal LV size and fxn without sig valve abnl 1. UTI with toxic metabolic encephelopathy, resolved 2. CAD angina pectoris, stable 3. Diastolic LV dysfunction with class 0-I NYHA classification LV congestive heart failure, compensated/euvolemic 4. Permanent atrial fibrillation on chronic A/C with NOAC's/Eliquis 5. HTN 6. DM 7. COPD/emphysema 8. CKD 9. Prostate carcinoma, causing extrinsic ureteral compression and hydronephrosis post intervention 10. Anemia PLAN: 1. Continue Cardizem CD 240 qd 2. Continue Eliquis 5 bid with close monitoring of CBC 3. Consider ACEI or ARB once renal function stabilizes 4. Continue to monitor renal function closely
--- NOTE | 2017-07-12 13:11 | PN ---
Progress Note (short form) - Note Progress Note: Renal Follow up for CKD Pt seen and examined at the bedside awake and alert no acute complaints making urine no hematuria no flank pain Vital Signs Temperature 98.3 F 07/12/17 09:00 Pulse Rate 75 07/12/17 11:10 Respiratory Rate 20 07/12/17 09:00 Blood Pressure 124/68 07/12/17 09:00 O2 Sat by Pulse Oximetry (%) 98 07/12/17 11:10 Intake & Output 07/09/17 07/10/17 07/11/17 07/12/17 23:59 23:59 23:59 23:59 Intake Total 400 877 200 240 Output Total 100 Balance 400 877 200 140 Gen: NAD, awake and alert CVS: RRR Lungs: CTA, no rales or wheeze Abd: soft NT/ND Ext: No edema CBC, BMP 07/10/17 06:00 07/12/17 06:15 Current Medications Acetaminophen (Tylenol -) 650 mg PO Q6H PRN PRN Reason: PAIN Last Admin: 07/11/17 03:36 Dose: 650 mg Apixaban (Eliquis -) 5 mg PO BID [facility] Last Admin: 07/12/17 09:20 Dose: 5 mg Artificial Tears (Artificial Tears) 1 drop OU BID PRN PRN Reason: DRY EYES Bicalutamide (Casodex -) 50 mg PO DAILY [facility] Last Admin: 07/12/17 09:18 Dose: 50 mg Diltiazem HCl (Cardizem Cd -) 240 mg PO DAILY [facility] Last Admin: 07/12/17 09:18 Dose: 240 mg Donepezil HCl (Aricept -) 5 mg PO DAILY [facility] Last Admin: 07/12/17 09:18 Dose: 5 mg Nicotine (Nicoderm Patch -) 14 mg TD DAILY [facility] Last Admin: 07/12/17 09:18 Dose: 14 mg Pantoprazole Sodium (Protonix -) 40 mg PO DAILY [facility] Last Admin: 07/12/17 09:18 Dose: 40 mg Polyethylene Glycol (Miralax (For Daily Use) -) 17 gm PO DAILY [facility] Last Admin: 07/12/17 10:03 Dose: 17 gm A/P 66 year old gentleman with PMhx of COPD, Diverticulitis, DM, Recent SILAS secondary to obstructive nephropathy (bladder inlet obstruction), Recently diagnosed prostate Ca who presented with AMS at the [facility] and found to have suspected UTI and Delirium. #Hx of SILAS/CKD Stage 3 Renal function remains stable at this time hydro seen on repeat renal Us, Urolgoy aware and following clinically at this time Trend BMP #AMS/Delirium on seroquel MRI w/o acute pathology #UTI/leukocytosis off Abx #Prostate CA/Obstructive uropathy urology follow up continue Casodex for prostate Ca Thank you will follow
--- NOTE | 2017-07-13 06:22 | FALL ---
Fall Exam - Event Witnessed fall: No Location of Fall: Patient Room Fall from: While ambulating - Pre-Fall Fall Risk: High Risk Mental Status: Disoriented Current Medications: Current Medications Generic Name Dose Route Start Last Admin Trade Name Luz Maria PRN Reason Stop Dose Admin Acetaminophen 650 mg 07/05/17 18:28 07/11/17 03:36 Tylenol - PO 650 mg Q6H PRN Administration PAIN Apixaban 5 mg 07/05/17 22:00 07/12/17 21:11 Eliquis - PO 5 mg BID [facility] Administration Artificial Tears 1 drop 07/05/17 18:28 Artificial Tears OU BID PRN DRY EYES Bicalutamide 50 mg 07/06/17 10:00 07/12/17 09:18 Casodex - PO 50 mg DAILY [facility] Administration Diltiazem HCl 120 mg 07/13/17 10:00 Cardizem Cd - PO DAILY [facility] Donepezil HCl 10 mg 07/13/17 10:00 Aricept - PO DAILY [facility] Nicotine 14 mg 07/06/17 10:00 07/12/17 09:18 Nicoderm Patch - TD 14 mg DAILY [facility] Administration Pantoprazole Sodium 40 mg 07/06/17 10:00 07/12/17 09:18 Protonix - PO 40 mg DAILY [facility] Administration Polyethylene Glycol 17 gm 07/06/17 10:00 07/12/17 10:03 Miralax (For Daily Use) - PO 17 gm DAILY [facility] Administration 07/13/17 06:22 - Post-Fall Patient Outcome: Pain Only Exam Findings: AOx2. Confused. Neuro: No facial droop. Muscle strenghth 5/5 globally tone normal, normal sensation. SONIYA: No bruises seen, R shoulder Mild tenderness. Abd: Not distended, no organs palpable,. Heart: S1 S2 no murmurs. Chest: Clear to auscultation bilaterally. Head: no evidence of trauma, no bleeding Treatment: Analgesia Vital Signs: Vital Signs Temperature 98.1 F 07/13/17 01:12 Pulse Rate 73 07/13/17 01:12 Respiratory Rate 18 07/13/17 01:12 Blood Pressure 137/68 07/13/17 01:12 O2 Sat by Pulse Oximetry (%) 97 07/12/17 21:00 LOC Post-Fall: Awake Identify factors for HIGH RISK for Head Injury: Pt on anticoagulant
[2017-07-13 07:29] LABS: INR 1.47 (0.82-1.09); PROTHROMBIN TIME (PATIENT) 16.3 SEC (9.98-11.88)
[2017-07-13 07:31] LABS: ACTIVATED PTT 30.3 SECONDS (26.9-34.4)
[2017-07-13 07:38] LABS: ANION GAP 8 (8-16); CALCIUM 9.7 mg/dL (8.5-10.1); CO2 31 mmol/L (21-32); CREATININE 1.5 mg/dL (0.7-1.3); GLUCOSE,RANDOM 107 mg/dL (74-106)
--- NOTE | 2017-07-13 09:31 | PN ---
Progress Note, Physician Chief Complaint: UTI,AMS History of Present Illness: NAD, in bed, mental status improved S/P ureteral stent exchange unwitnessed fall early this AM, this is his third fall this hospital stay. [facility] head - Current Medication List Current Medications: Active Medications Acetaminophen (Tylenol -) 650 mg PO Q6H PRN PRN Reason: PAIN Last Admin: 07/11/17 03:36 Dose: 650 mg Apixaban (Eliquis -) 5 mg PO BID [facility] Last Admin: 07/12/17 21:11 Dose: 5 mg Artificial Tears (Artificial Tears) 1 drop OU BID PRN PRN Reason: DRY EYES Bicalutamide (Casodex -) 50 mg PO DAILY [facility] Last Admin: 07/12/17 09:18 Dose: 50 mg Diltiazem HCl (Cardizem Cd -) 120 mg PO DAILY [facility] Donepezil HCl (Aricept -) 10 mg PO DAILY [facility] Nicotine (Nicoderm Patch -) 14 mg TD DAILY [facility] Last Admin: 07/12/17 09:18 Dose: 14 mg Pantoprazole Sodium (Protonix -) 40 mg PO DAILY [facility] Last Admin: 07/12/17 09:18 Dose: 40 mg Polyethylene Glycol (Miralax (For Daily Use) -) 17 gm PO DAILY [facility] Last Admin: 07/12/17 10:03 Dose: 17 gm - Objective Vital Signs: Vital Signs Temperature 97.2 F L 07/13/17 06:46 Pulse Rate 81 07/13/17 06:46 Respiratory Rate 20 07/13/17 06:46 Blood Pressure 127/89 07/13/17 06:46 O2 Sat by Pulse Oximetry (%) 97 07/12/17 21:00 Constitutional: Yes: Well Nourished, No Distress, Calm Cardiovascular: Yes: Pulse Irregular Respiratory: Yes: Regular Musculoskeletal: Yes: WNL, Other (mild right shoulder pain) Edema: No Neurological: Yes: Alert, Confusion Psychiatric: Yes: Alert Labs: CBC, BMP 07/10/17 06:00 07/13/17 06:00 INR, PTT INR 1.47 (0.82-1.09) H 07/13/17 06:00 Problem List - Problems (1) Generalized weakness Assessment/Plan: -improved -Physical therapy Code(s): R53.1 - WEAKNESS (2) Adenocarcinoma of prostate Assessment/Plan: -on casodex -unable to receive Lupron due to coverage and financial issue, daughter has opted for Orchiectomy. Code(s): C61 - MALIGNANT NEOPLASM OF PROSTATE (3) Delirium Assessment/Plan: -Improved -Brain MRI negative -Seen by neurology and psychiatry -on Donepezil 5mg , tolerating well -He was placed on seroquel after an episode of agitation and confusion post stent placement, which is very likely due to acute delirium secondary to anesthesia. Would monitor patient off seroquel. Code(s): R41.0 - DISORIENTATION, UNSPECIFIED (4) Orthostatic hypotension Assessment/Plan: -improved with compression stockings -seen by cardiology -Cardizem decreased to 120 mg Code(s): I95.1 - ORTHOSTATIC HYPOTENSION (5) Atrial fibrillation with RVR Assessment/Plan: -chronic, controlled -on eliquis Code(s): I48.91 - UNSPECIFIED ATRIAL FIBRILLATION (6) Hydronephrosis Assessment/Plan: -Renal U/S-moderate right hydronephrosis, which was present on previous imaging as well. -S/P Right ureteral stent exhange -repeat U/S renal shows new left hydronephrosis and no change in right hydronephrosis, would consult Urology again. Code(s): N13.30 - UNSPECIFIED HYDRONEPHROSIS Qualifiers: Hydronephrosis type: unspecified Qualified Code(s): N13.30 - Unspecified hydronephrosis (7) Recurrent falls Assessment/Plan: -maintain safety measures, encouraged to move patient closer to Nurses station. -would start seroquel at bedtime Code(s): R29.6 - REPEATED FALLS Assessment/Plan S/P exchange right ureteral stent and awaiting bed at SNF/[facility] closer to where daughter lives. Spoke to daughter over the phone. Informed brand planner. Daughter is willing to pay for the transportation. Spoke to daughter about Orchiectomy, she agrees to the plan to go ahead with the procedure vs receiving lupron injections, as he is being denied by [facility]. As per urology the procedure could be done as outpatient. Daughter prefers to do the procedure during his hospital stay and have him transferred up to [facility] where daughter lives.
[2017-07-13] MEDS ORDERED: PT OWN MED DRAWER 7, Y5N ONE ×2 (10:34→20:33)
[2017-07-13] MEDS: DONEPEZIL HCL 10 MG TABLET (FP) PO SCH (10:35)
[2017-07-13] MEDS: NICOTINE 14 MG/24 HOURS TOPICAL PATCH TD SCH (10:35)
[2017-07-13] MEDS: APIXABAN 5 MG TABLET PO SCH ×2 (10:35→21:15)
[2017-07-13] MEDS: PANTOPRAZOLE 40 MG TABLET (FP) PO SCH (10:35)
[2017-07-13] MEDS: BICALUTAMIDE 50 MG TABLET (FP) PO SCH (10:36)
[2017-07-13] MEDS: POLYETHYLENE GLYCOL 3350 119 GM BTL PO SCH (10:36)
--- NOTE | 2017-07-13 11:55 | PN ---
Progress Note, Physician Chief Complaint: Not in distress Confusion persists with underlying dementia Post fall appears mechanical History of Present Illness: Patient was seen and examined. Awake. Baseline dementia. Chart was reviewed Denies chest pain, SOB or palpitation - Current Medication List Current Medications: Active Medications Acetaminophen (Tylenol -) 650 mg PO Q6H PRN PRN Reason: PAIN Last Admin: 07/11/17 03:36 Dose: 650 mg Apixaban (Eliquis -) 5 mg PO BID [facility] Last Admin: 07/13/17 10:35 Dose: 5 mg Artificial Tears (Artificial Tears) 1 drop OU BID PRN PRN Reason: DRY EYES Bicalutamide (Casodex -) 50 mg PO DAILY [facility] Last Admin: 07/13/17 10:36 Dose: 50 mg Diltiazem HCl (Cardizem Cd -) 120 mg PO DAILY [facility] Last Admin: 07/13/17 10:35 Dose: 120 mg Donepezil HCl (Aricept -) 10 mg PO DAILY [facility] Last Admin: 07/13/17 10:35 Dose: 10 mg Nicotine (Nicoderm Patch -) 14 mg TD DAILY [facility] Last Admin: 07/13/17 10:35 Dose: 14 mg Pantoprazole Sodium (Protonix -) 40 mg PO DAILY [facility] Last Admin: 07/13/17 10:35 Dose: 40 mg Polyethylene Glycol (Miralax (For Daily Use) -) 17 gm PO DAILY [facility] Last Admin: 07/13/17 10:36 Dose: 17 gm - Objective Vital Signs: Vital Signs Temperature 97.2 F L 07/13/17 06:46 Pulse Rate 81 07/13/17 06:46 Respiratory Rate 20 07/13/17 06:46 Blood Pressure 127/89 07/13/17 06:46 O2 Sat by Pulse Oximetry (%) 97 07/12/17 21:00 Cardiovascular: Yes: Pulse Irregular, S1, S2 Respiratory: Yes: Diminished Gastrointestinal: Yes: Normal Bowel Sounds, Soft, Abdomen, Obese. No: Tenderness Edema: No Labs: CBC, BMP 07/10/17 06:00 07/13/17 06:00 INR, PTT INR 1.47 (0.82-1.09) H 07/13/17 06:00 Problem List - Problems (1) SILAS (acute kidney injury) Code(s): N17.9 - ACUTE KIDNEY FAILURE, UNSPECIFIED (2) Generalized weakness Code(s): R53.1 - WEAKNESS (3) Prostate cancer Code(s): C61 - MALIGNANT NEOPLASM OF PROSTATE (4) Toxic metabolic encephalopathy Code(s): G92 - TOXIC ENCEPHALOPATHY (5) UTI (urinary tract infection) Code(s): N39.0 - URINARY TRACT INFECTION, SITE NOT SPECIFIED Qualifiers: Urinary tract infection type: site unspecified (6) Atrial fibrillation with RVR Code(s): I48.91 - UNSPECIFIED ATRIAL FIBRILLATION (7) CVA (cerebral infarction) Code(s): I63.9 - CEREBRAL INFARCTION, UNSPECIFIED Qualifiers: Cerebral infarction mechanism: unspecified mechanism Qualified Code(s) : I63.9 - Cerebral infarction, unspecified; I63.9 - Cerebral infarction, unspecified; I63.9 - Cerebral infarction, unspecified; I63.9 - Cerebral infarction, unspecified (8) Diabetes Code(s): E11.9 - TYPE 2 DIABETES MELLITUS WITHOUT COMPLICATIONS Qualifiers: Diabetes mellitus type: type 2 Diabetes mellitus complication status: without complication (9) HTN (hypertension) Code(s): I10 - ESSENTIAL (PRIMARY) HYPERTENSION Qualifiers: Hypertension type: essential hypertension Qualified Code(s): I10 - Essential (primary) hypertension; I10 - Essential (primary) hypertension; I10 - Essential (primary) hypertension Assessment/Plan 1. UTI with toxic metabolic encephelopathy 2. CKD with h/o acute kidney injury (post obstructive-prostate cancer) 3. History of Digoxin toxicity - resolved 4. Permanent atrial fibrillation with variable ventricular response 5. History of hypertension 6. COPD/emphysema with history of exacerbation 7. Type 2 diabetes mellitus 8. Prostate cancer causing extrinsic ureteral compression and hydronephrosis post intervention - post bilateral stents, bladder biopsy 9. 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 Monitor renal function and electrolytes. 2. Continue Cardizem CD 240 qd and titrate as tolerated 3. Currently on Eliquis 5 mg BID 4. Consider ACEI or ARB once renal function stabilizes 5. Fall precaution. Continue PT and eventual SNF Han Nowak MD
[2017-07-13] MEDS: QUEtiapine FUMARATE 25 MG TABLET (FP) PO SCH (21:15)
[2017-07-14] MEDS ORDERED: PT OWN MED DRAWER 7, Y5N ONE (09:33)
[2017-07-14] MEDS: NICOTINE 14 MG/24 HOURS TOPICAL PATCH TD SCH (09:36)
[2017-07-14] MEDS: POLYETHYLENE GLYCOL 3350 119 GM BTL PO SCH (09:37)
[2017-07-14] MEDS: BICALUTAMIDE 50 MG TABLET (FP) PO SCH (09:37)
[2017-07-14] MEDS: DONEPEZIL HCL 10 MG TABLET (FP) PO SCH (09:37)
[2017-07-14] MEDS: APIXABAN 5 MG TABLET PO SCH ×2 (09:37→22:16)
[2017-07-14] MEDS: PANTOPRAZOLE 40 MG TABLET (FP) PO SCH (09:37)
--- NOTE | 2017-07-14 09:41 | PN ---
Progress Note, Physician Chief Complaint: Not in distress Confusion persists with underlying dementia History of Present Illness: Patient was seen and examined. Awake. Baseline dementia. Chart was reviewed Denies chest pain, SOB or palpitation - Current Medication List Current Medications: Active Medications Acetaminophen (Tylenol -) 650 mg PO Q6H PRN PRN Reason: PAIN Last Admin: 07/11/17 03:36 Dose: 650 mg Apixaban (Eliquis -) 5 mg PO BID [facility] Last Admin: 07/14/17 09:37 Dose: 5 mg Artificial Tears (Artificial Tears) 1 drop OU BID PRN PRN Reason: DRY EYES Bicalutamide (Casodex -) 50 mg PO DAILY [facility] Last Admin: 07/14/17 09:37 Dose: 50 mg Diltiazem HCl (Cardizem Cd -) 120 mg PO DAILY [facility] Last Admin: 07/14/17 09:37 Dose: 120 mg Donepezil HCl (Aricept -) 10 mg PO DAILY [facility] Last Admin: 07/14/17 09:37 Dose: 10 mg Nicotine (Nicoderm Patch -) 14 mg TD DAILY [facility] Last Admin: 07/14/17 09:36 Dose: 14 mg Pantoprazole Sodium (Protonix -) 40 mg PO DAILY [facility] Last Admin: 07/14/17 09:37 Dose: 40 mg Polyethylene Glycol (Miralax (For Daily Use) -) 17 gm PO DAILY [facility] Last Admin: 07/14/17 09:37 Dose: 17 gm Quetiapine Fumarate (Seroquel -) 25 mg PO HS [facility] Last Admin: 07/13/17 21:15 Dose: 25 mg - Objective Vital Signs: Vital Signs Temperature 98.1 F 07/14/17 09:01 Pulse Rate 77 07/14/17 09:01 Respiratory Rate 18 07/14/17 09:01 Blood Pressure 136/77 07/14/17 09:01 O2 Sat by Pulse Oximetry (%) 99 07/13/17 21:00 Cardiovascular: Yes: Pulse Irregular, S1, S2 Respiratory: Yes: Diminished Gastrointestinal: Yes: Normal Bowel Sounds, Soft. No: Tenderness Edema: No Problem List - Problems (1) SILAS (acute kidney injury) Code(s): N17.9 - ACUTE KIDNEY FAILURE, UNSPECIFIED (2) Generalized weakness Code(s): R53.1 - WEAKNESS (3) Prostate cancer Code(s): C61 - MALIGNANT NEOPLASM OF PROSTATE (4) Toxic metabolic encephalopathy Code(s): G92 - TOXIC ENCEPHALOPATHY (5) UTI (urinary tract infection) Code(s): N39.0 - URINARY TRACT INFECTION, SITE NOT SPECIFIED Qualifiers: Urinary tract infection type: site unspecified (6) Atrial fibrillation with RVR Code(s): I48.91 - UNSPECIFIED ATRIAL FIBRILLATION (7) CVA (cerebral infarction) Code(s): I63.9 - CEREBRAL INFARCTION, UNSPECIFIED Qualifiers: Cerebral infarction mechanism: unspecified mechanism Qualified Code(s) : I63.9 - Cerebral infarction, unspecified; I63.9 - Cerebral infarction, unspecified; I63.9 - Cerebral infarction, unspecified; I63.9 - Cerebral infarction, unspecified (8) Diabetes Code(s): E11.9 - TYPE 2 DIABETES MELLITUS WITHOUT COMPLICATIONS Qualifiers: Diabetes mellitus type: type 2 Diabetes mellitus complication status: without complication (9) HTN (hypertension) Code(s): I10 - ESSENTIAL (PRIMARY) HYPERTENSION Qualifiers: Hypertension type: essential hypertension Qualified Code(s): I10 - Essential (primary) hypertension; I10 - Essential (primary) hypertension; I10 - Essential (primary) hypertension Assessment/Plan 1. UTI with toxic metabolic encephelopathy 2. CKD with h/o acute kidney injury (post obstructive-prostate cancer) 3. History of Digoxin toxicity - resolved 4. Permanent atrial fibrillation with variable ventricular response 5. History of hypertension 6. COPD/emphysema with history of exacerbation 7. Type 2 diabetes mellitus 8. Prostate cancer causing extrinsic ureteral compression and hydronephrosis post intervention - post bilateral stents, bladder biopsy 9. 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 Monitor renal function and electrolytes. 2. Continue Cardizem CD 240 qd and titrate as tolerated 3. Currently on Eliquis 5 mg BID 4. Consider ACEI or ARB once renal function stabilizes 5. Fall precaution. Continue PT and eventual SNF Han Nowak MD
--- NOTE | 2017-07-14 12:18 | PN ---
Progress Note, Physician Chief Complaint: UTI,AMS History of Present Illness: NAD, in bed, mental status improved S/P ureteral stent exchange Patient slept throughout the night. Would continue Seroquel for now. CT head was negative - Current Medication List Current Medications: Active Medications Acetaminophen (Tylenol -) 650 mg PO Q6H PRN PRN Reason: PAIN Last Admin: 07/11/17 03:36 Dose: 650 mg Apixaban (Eliquis -) 5 mg PO BID [facility] Last Admin: 07/14/17 09:37 Dose: 5 mg Artificial Tears (Artificial Tears) 1 drop OU BID PRN PRN Reason: DRY EYES Bicalutamide (Casodex -) 50 mg PO DAILY [facility] Last Admin: 07/14/17 09:37 Dose: 50 mg Diltiazem HCl (Cardizem Cd -) 120 mg PO DAILY [facility] Last Admin: 07/14/17 09:37 Dose: 120 mg Donepezil HCl (Aricept -) 10 mg PO DAILY [facility] Last Admin: 07/14/17 09:37 Dose: 10 mg Nicotine (Nicoderm Patch -) 14 mg TD DAILY [facility] Last Admin: 07/14/17 09:36 Dose: 14 mg Pantoprazole Sodium (Protonix -) 40 mg PO DAILY [facility] Last Admin: 07/14/17 09:37 Dose: 40 mg Polyethylene Glycol (Miralax (For Daily Use) -) 17 gm PO DAILY [facility] Last Admin: 07/14/17 09:37 Dose: 17 gm Quetiapine Fumarate (Seroquel -) 25 mg PO HS [facility] Last Admin: 07/13/17 21:15 Dose: 25 mg - Objective Vital Signs: Vital Signs Temperature 98.1 F 07/14/17 09:01 Pulse Rate 77 07/14/17 09:01 Respiratory Rate 18 07/14/17 09:01 Blood Pressure 136/77 07/14/17 09:01 O2 Sat by Pulse Oximetry (%) 98 07/14/17 09:00 Constitutional: Yes: Well Nourished, No Distress, Calm Cardiovascular: Yes: Regular Rate and Rhythm Respiratory: Yes: Regular Musculoskeletal: Yes: WNL Extremities: Yes: WNL Edema: No Peripheral Pulses WNL: Yes Neurological: Yes: Alert, Confusion Psychiatric: Yes: Alert Labs: CBC, BMP 07/10/17 06:00 07/13/17 06:00 INR, PTT INR 1.47 (0.82-1.09) H 07/13/17 06:00 Problem List - Problems (1) Generalized weakness Assessment/Plan: -improved -Physical therapy Code(s): R53.1 - WEAKNESS (2) Adenocarcinoma of prostate Assessment/Plan: -on casodex -unable to receive Lupron due to coverage and financial issue, daughter has opted for Orchiectomy. Code(s): C61 - MALIGNANT NEOPLASM OF PROSTATE (3) Delirium Assessment/Plan: -Improved -Brain MRI negative -Seen by neurology and psychiatry -on Donepezil 5mg , tolerating well -He was placed on seroquel after an episode of agitation and confusion post stent placement, which is very likely due to acute delirium secondary to anesthesia. Would monitor patient off seroquel. Code(s): R41.0 - DISORIENTATION, UNSPECIFIED (4) Orthostatic hypotension Assessment/Plan: -improved with compression stockings -seen by cardiology -Cardizem decreased to 120 mg Code(s): I95.1 - ORTHOSTATIC HYPOTENSION (5) Atrial fibrillation with RVR Assessment/Plan: -chronic, controlled -on eliquis Code(s): I48.91 - UNSPECIFIED ATRIAL FIBRILLATION (6) Hydronephrosis Assessment/Plan: -Renal U/S-moderate right hydronephrosis, which was present on previous imaging as well. -S/P Right ureteral stent exhange -repeat U/S renal shows new left hydronephrosis and no change in right hydronephrosis, would consult Urology again. Code(s): N13.30 - UNSPECIFIED HYDRONEPHROSIS Qualifiers: Hydronephrosis type: unspecified Qualified Code(s): N13.30 - Unspecified hydronephrosis; N13.30 - Unspecified hydronephrosis (7) Recurrent falls Assessment/Plan: -maintain safety measures, encouraged to move patient closer to Nurses station. -would start seroquel at bedtime Code(s): R29.6 - REPEATED FALLS Assessment/Plan S/P exchange right ureteral stent and awaiting bed at SNF/NH closer to where daughter lives. Spoke to daughter over the phone. Informed emergency planner. Daughter is willing to pay for the transportation. Spoke to daughter about Orchiectomy, she agrees to the plan to go ahead with the procedure vs receiving lupron injections, as he is being denied by [employer]. As per urology the procedure could be done as outpatient. Daughter prefers to do the procedure during his hospital stay and have him transferred up to [facility] where daughter lives.
[2017-07-14] MEDS: QUEtiapine FUMARATE 25 MG TABLET (FP) PO SCH (22:16)
--- NOTE | 2017-07-15 07:45 | PN ---
Progress Note, Physician History of Present Illness: CONFUSION - Current Medication List Current Medications: Active Medications Acetaminophen (Tylenol -) 650 mg PO Q6H PRN PRN Reason: PAIN Last Admin: 07/11/17 03:36 Dose: 650 mg Apixaban (Eliquis -) 5 mg PO BID [facility] Last Admin: 07/14/17 22:16 Dose: 5 mg Artificial Tears (Artificial Tears) 1 drop OU BID PRN PRN Reason: DRY EYES Bicalutamide (Casodex -) 50 mg PO DAILY [facility] Last Admin: 07/14/17 09:37 Dose: 50 mg Diltiazem HCl (Cardizem Cd -) 120 mg PO DAILY [facility] Last Admin: 07/14/17 09:37 Dose: 120 mg Donepezil HCl (Aricept -) 10 mg PO DAILY [facility] Last Admin: 07/14/17 09:37 Dose: 10 mg Nicotine (Nicoderm Patch -) 14 mg TD DAILY [facility] Last Admin: 07/14/17 09:36 Dose: 14 mg Pantoprazole Sodium (Protonix -) 40 mg PO DAILY [facility] Last Admin: 07/14/17 09:37 Dose: 40 mg Polyethylene Glycol (Miralax (For Daily Use) -) 17 gm PO DAILY [facility] Last Admin: 07/14/17 09:37 Dose: 17 gm Quetiapine Fumarate (Seroquel -) 25 mg PO HS [facility] Last Admin: 07/14/17 22:16 Dose: 25 mg - Objective Vital Signs: Vital Signs Temperature 97.6 F 07/15/17 06:00 Pulse Rate 73 07/15/17 06:00 Respiratory Rate 20 07/15/17 06:00 Blood Pressure 142/70 07/15/17 06:00 O2 Sat by Pulse Oximetry (%) 99 07/14/17 21:00 Cardiovascular: Yes: S1, S2 Respiratory: Yes: Regular, CTA Bilaterally Gastrointestinal: Yes: Normal Bowel Sounds, Soft Edema: No Labs: CBC, BMP 07/10/17 06:00 07/13/17 06:00 INR, PTT INR 1.47 (0.82-1.09) H 07/13/17 06:00 Assessment/Plan - Problems (1) Generalized weakness Assessment/Plan: -improved -Physical therapy Code(s): R53.1 - WEAKNESS (2) Adenocarcinoma of prostate Assessment/Plan: -on casodex -unable to receive Lupron due to coverage and financial issue, daughter has opted for Orchiectomy. Code(s): C61 - MALIGNANT NEOPLASM OF PROSTATE (3) Delirium Assessment/Plan: -Improved -Brain MRI negative -Seen by neurology and psychiatry -on Donepezil 5mg , tolerating well -He was placed on seroquel after an episode of agitation and confusion post stent placement, which is very likely due to acute delirium secondary to anesthesia. Would monitor patient off seroquel. Code(s): R41.0 - DISORIENTATION, UNSPECIFIED (4) Orthostatic hypotension Assessment/Plan: -improved with compression stockings -seen by cardiology -Cardizem decreased to 120 mg Code(s): I95.1 - ORTHOSTATIC HYPOTENSION (5) Atrial fibrillation with RVR Assessment/Plan: -chronic, controlled -on eliquis Code(s): I48.91 - UNSPECIFIED ATRIAL FIBRILLATION (6) Hydronephrosis Assessment/Plan: -Renal U/S-moderate right hydronephrosis, which was present on previous imaging as well. -S/P Right ureteral stent exhange -repeat U/S renal shows new left hydronephrosis and no change in right hydronephrosis, would consult Urology again. Code(s): N13.30 - UNSPECIFIED HYDRONEPHROSIS Qualifiers: Hydronephrosis type: unspecified Qualified Code(s): N13.30 - Unspecified hydronephrosis; N13.30 - Unspecified hydronephrosis (7) Recurrent falls Assessment/Plan: -maintain safety measures, encouraged to move patient closer to Nurses station. -would start seroquel at bedtime Code(s): R29.6 - REPEATED FALLS Assessment/Plan S/P exchange right ureteral stent and awaiting bed at SNF/NH closer to where daughter lives. Spoke to daughter over the phone. Informed habitat conservation planner. Daughter is willing to pay for the transportation. Spoke to daughter about Orchiectomy, she agrees to the plan to go ahead with the procedure vs receiving lupron injections, as he is being denied by [employer]. As per urology the procedure could be done as outpatient. Daughter prefers to do the procedure during his hospital stay and have him transferred up to [facility] where daughter lives.
[2017-07-15] MEDS ORDERED: PT OWN MED DRAWER 7, Y5N ONE ×2 (09:10→20:56)
[2017-07-15] MEDS: NICOTINE 14 MG/24 HOURS TOPICAL PATCH TD SCH (09:14)
[2017-07-15] MEDS: POLYETHYLENE GLYCOL 3350 119 GM BTL PO SCH (09:15)
[2017-07-15] MEDS: BICALUTAMIDE 50 MG TABLET (FP) PO SCH (09:15)
[2017-07-15] MEDS: DONEPEZIL HCL 10 MG TABLET (FP) PO SCH (09:15)
[2017-07-15] MEDS: PANTOPRAZOLE 40 MG TABLET (FP) PO SCH (09:15)
[2017-07-15] MEDS: APIXABAN 5 MG TABLET PO SCH ×2 (09:15→21:11)
--- NOTE | 2017-07-15 10:33 | PN ---
Progress Note, Physician History of Present Illness: No complaints, denies hematuria. Post TUVP and right ureteral stent exchange POD #9, Cardizem decreased due to orthostasis since resolved. - Current Medication List Current Medications: Active Medications Acetaminophen (Tylenol -) 650 mg PO Q6H PRN PRN Reason: PAIN Last Admin: 07/11/17 03:36 Dose: 650 mg Apixaban (Eliquis -) 5 mg PO BID [facility] Last Admin: 07/15/17 09:15 Dose: 5 mg Artificial Tears (Artificial Tears) 1 drop OU BID PRN PRN Reason: DRY EYES Bicalutamide (Casodex -) 50 mg PO DAILY [facility] Last Admin: 07/15/17 09:15 Dose: 50 mg Diltiazem HCl (Cardizem Cd -) 120 mg PO DAILY [facility] Last Admin: 07/15/17 09:15 Dose: 120 mg Donepezil HCl (Aricept -) 10 mg PO DAILY [facility] Last Admin: 07/15/17 09:15 Dose: 10 mg Nicotine (Nicoderm Patch -) 14 mg TD DAILY [facility] Last Admin: 07/15/17 09:14 Dose: 14 mg Pantoprazole Sodium (Protonix -) 40 mg PO DAILY [facility] Last Admin: 07/15/17 09:15 Dose: 40 mg Polyethylene Glycol (Miralax (For Daily Use) -) 17 gm PO DAILY [facility] Last Admin: 07/15/17 09:15 Dose: 17 gm Quetiapine Fumarate (Seroquel -) 25 mg PO HS [facility] Last Admin: 07/14/17 22:16 Dose: 25 mg - Objective Vital Signs: Vital Signs Temperature 97.6 F 07/15/17 06:00 Pulse Rate 79 07/15/17 09:00 Respiratory Rate 20 07/15/17 09:00 Blood Pressure 155/78 07/15/17 09:00 O2 Sat by Pulse Oximetry (%) 99 07/14/17 21:00 Constitutional: Yes: No Distress, Calm Neck: Yes: Supple Cardiovascular: Yes: Pulse Irregular Respiratory: Yes: Regular, Diminished Gastrointestinal: Yes: Normal Bowel Sounds, Soft Edema: No Labs: CBC, BMP 07/10/17 06:00 07/13/17 06:00 INR, PTT INR 1.47 (0.82-1.09) H 07/13/17 06:00 Problem List - Problems (1) Prostate cancer Code(s): C61 - MALIGNANT NEOPLASM OF PROSTATE (2) UTI (urinary tract infection) Code(s): N39.0 - URINARY TRACT INFECTION, SITE NOT SPECIFIED Qualifiers: Urinary tract infection type: site unspecified (3) Atrial fibrillation with RVR Code(s): I48.91 - UNSPECIFIED ATRIAL FIBRILLATION (4) Diabetes Code(s): E11.9 - TYPE 2 DIABETES MELLITUS WITHOUT COMPLICATIONS Qualifiers: Diabetes mellitus type: type 2 Diabetes mellitus complication status: without complication (5) Diastolic CHF Code(s): I50.30 - UNSPECIFIED DIASTOLIC (CONGESTIVE) HEART FAILURE Qualifiers : Congestive heart failure chronicity: chronic Qualified Code(s): I50.32 - Chronic diastolic (congestive) heart failure; I50.32 - Chronic diastolic (congestive) heart failure; I50.32 - Chronic diastolic (congestive) heart failure; I50.32 - Chronic diastolic (congestive) heart failure (6) HTN (hypertension) Code(s): I10 - ESSENTIAL (PRIMARY) HYPERTENSION Qualifiers: Hypertension type: essential hypertension Qualified Code(s): I10 - Essential (primary) hypertension; I10 - Essential (primary) hypertension; I10 - Essential (primary) hypertension (7) Hyperlipidemia associated with type 2 diabetes mellitus Code(s): E11.69 - TYPE 2 DIABETES MELLITUS WITH OTHER SPECIFIED COMPLICATION E78.5 - HYPERLIPIDEMIA, UNSPECIFIED (8) Gait disturbance Code(s): R26.9 - UNSPECIFIED ABNORMALITIES OF GAIT AND MOBILITY (9) Toxic metabolic encephalopathy Code(s): G92 - TOXIC ENCEPHALOPATHY (10) Hydronephrosis Code(s): N13.30 - UNSPECIFIED HYDRONEPHROSIS Qualifiers: Hydronephrosis type: unspecified Qualified Code(s): N13.30 - Unspecified hydronephrosis; N13.30 - Unspecified hydronephrosis Assessment/Plan 05/20/2017 Echo: Normal LV size and fxn without sig valve abnl 1. UTI with toxic metabolic encephelopathy, resolved 2. CAD angina pectoris, stable 3. Diastolic LV dysfunction with class 0-I NYHA classification LV congestive heart failure, compensated/euvolemic 4. Permanent atrial fibrillation on chronic A/C with NOAC's/Eliquis 5. HTN 6. DM 7. COPD/emphysema 8. CKD with h/o acute kidney injury 9. Prostate carcinoma, causing extrinsic ureteral compression and hydronephrosis post intervention 10. Anemia 11. History of Digoxin toxicity - resolved PLAN: 1. Continue Cardizem CD 120 qd 2. Continue Eliquis 5 bid with close monitoring of CBC 3. Consider ACEI or ARB once renal function stabilizes 4. Continue to monitor renal function closely, planning for orchiectomy vs Lupron injections as outpatient, would hold Eliquis 2 days prior to surgery and resume once post-op hemostasis has been achieved
--- NOTE | 2017-07-15 17:39 | PN ---
Progress Note (short form) - Note Progress Note: Renal Follow up for CKD Pt seen and examined at the bedside awake and alert confused no overnight events Vital Signs Temperature 97.2 F L 07/15/17 14:35 Pulse Rate 75 07/15/17 14:35 Respiratory Rate 20 07/15/17 14:35 Blood Pressure 124/59 07/15/17 14:35 O2 Sat by Pulse Oximetry (%) 99 07/14/17 21:00 Intake & Output 07/12/17 07/13/17 07/14/17 07/15/17 23:59 23:59 23:59 23:59 Intake Total 884 746 4744 500 Output Total 100 150 250 Balance 840 390 830 500 Gen: NAD, awake and alert CVS: RRR Lungs: CTA, no rales or wheeze Abd: soft NT/ND Ext: No edema CBC, BMP 07/10/17 06:00 07/13/17 06:00 Current Medications Acetaminophen (Tylenol -) 650 mg PO Q6H PRN PRN Reason: PAIN Last Admin: 07/11/17 03:36 Dose: 650 mg Apixaban (Eliquis -) 5 mg PO BID [facility] Last Admin: 07/15/17 09:15 Dose: 5 mg Artificial Tears (Artificial Tears) 1 drop OU BID PRN PRN Reason: DRY EYES Bicalutamide (Casodex -) 50 mg PO DAILY [facility] Last Admin: 07/15/17 09:15 Dose: 50 mg Diltiazem HCl (Cardizem Cd -) 120 mg PO DAILY [facility] Last Admin: 07/15/17 09:15 Dose: 120 mg Donepezil HCl (Aricept -) 10 mg PO DAILY [facility] Last Admin: 07/15/17 09:15 Dose: 10 mg Nicotine (Nicoderm Patch -) 14 mg TD DAILY [facility] Last Admin: 07/15/17 09:14 Dose: 14 mg Pantoprazole Sodium (Protonix -) 40 mg PO DAILY [facility] Last Admin: 07/15/17 09:15 Dose: 40 mg Polyethylene Glycol (Miralax (For Daily Use) -) 17 gm PO DAILY [facility] Last Admin: 07/15/17 09:15 Dose: 17 gm Quetiapine Fumarate (Seroquel -) 25 mg PO HS [facility] Last Admin: 07/14/17 22:16 Dose: 25 mg A/P 66 year old gentleman with PMhx of COPD, Diverticulitis, DM, Recent 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 #Hx of SILAS/CKD Stage 3 Renal function remains stable at this time #AMS/Delirium on seroquel MRI w/o acute pathology #UTI/leukocytosis off Abx #Prostate CA/Obstructive uropathy continuse casodex for possible Orchiectomy Thank you will follow
[2017-07-15] MEDS: QUEtiapine FUMARATE 25 MG TABLET (FP) PO SCH (21:11)
[2017-07-16] MEDS ORDERED: PT OWN MED DRAWER 7, Y5N ONE (09:28)
[2017-07-16] MEDS: PANTOPRAZOLE 40 MG TABLET (FP) PO SCH (09:29)
[2017-07-16] MEDS: DONEPEZIL HCL 10 MG TABLET (FP) PO SCH (09:29)
[2017-07-16] MEDS: APIXABAN 5 MG TABLET PO SCH ×2 (09:30→21:22)
[2017-07-16] MEDS: NICOTINE 14 MG/24 HOURS TOPICAL PATCH TD SCH (09:30)
[2017-07-16] MEDS: POLYETHYLENE GLYCOL 3350 119 GM BTL PO SCH (09:30)
[2017-07-16] MEDS: BICALUTAMIDE 50 MG TABLET (FP) PO SCH (09:30)
--- NOTE | 2017-07-16 10:16 | PN ---
Progress Note, Physician Chief Complaint: UTI,AMS History of Present Illness: NAD, in bed, mental status improved S/P ureteral stent exchange Patient slept throughout the night. Would continue Seroquel for now. CT head was negative - Current Medication List Current Medications: Active Medications Acetaminophen (Tylenol -) 650 mg PO Q6H PRN PRN Reason: PAIN Last Admin: 07/11/17 03:36 Dose: 650 mg Apixaban (Eliquis -) 5 mg PO BID [facility] Last Admin: 07/16/17 09:30 Dose: 5 mg Artificial Tears (Artificial Tears) 1 drop OU BID PRN PRN Reason: DRY EYES Bicalutamide (Casodex -) 50 mg PO DAILY [facility] Last Admin: 07/16/17 09:30 Dose: 50 mg Diltiazem HCl (Cardizem Cd -) 120 mg PO DAILY [facility] Last Admin: 07/16/17 09:29 Dose: 120 mg Donepezil HCl (Aricept -) 10 mg PO DAILY [facility] Last Admin: 07/16/17 09:29 Dose: 10 mg Nicotine (Nicoderm Patch -) 14 mg TD DAILY [facility] Last Admin: 07/16/17 09:30 Dose: 14 mg Pantoprazole Sodium (Protonix -) 40 mg PO DAILY [facility] Last Admin: 07/16/17 09:29 Dose: 40 mg Polyethylene Glycol (Miralax (For Daily Use) -) 17 gm PO DAILY [facility] Last Admin: 07/16/17 09:30 Dose: 17 gm Quetiapine Fumarate (Seroquel -) 25 mg PO HS [facility] Last Admin: 07/15/17 21:11 Dose: 25 mg - Objective Vital Signs: Vital Signs Temperature 98.3 F 07/16/17 08:23 Pulse Rate 80 07/16/17 08:23 Respiratory Rate 18 07/16/17 08:23 Blood Pressure 158/60 07/16/17 08:23 O2 Sat by Pulse Oximetry (%) 96 07/15/17 21:00 Constitutional: Yes: Well Nourished, No Distress, Calm Cardiovascular: Yes: Regular Rate and Rhythm Respiratory: Yes: Regular Gastrointestinal: Yes: Normal Bowel Sounds Musculoskeletal: Yes: WNL Extremities: Yes: WNL Edema: No Peripheral Pulses WNL: Yes Neurological: Yes: Alert, Oriented (x2) Psychiatric: Yes: Alert Labs: CBC, BMP 07/10/17 06:00 09/30/17 06:00 INR, PTT INR 1.47 (0.82-1.09) H 07/13/17 06:00 Problem List - Problems (1) Generalized weakness Assessment/Plan: -improved -Physical therapy Code(s): R53.1 - WEAKNESS (2) Adenocarcinoma of prostate Assessment/Plan: -on casodex -unable to receive Lupron due to coverage and financial issue, daughter has opted for Orchiectomy. -Urology to re-evaluate Code(s): C61 - MALIGNANT NEOPLASM OF PROSTATE (3) Delirium Assessment/Plan: -Improved -Brain MRI negative -Seen by neurology and psychiatry -on Donepezil 5mg , tolerating well -He was placed on seroquel after an episode of agitation and confusion post stent placement, which is very likely due to acute delirium secondary to anesthesia. Would monitor patient off seroquel. Code(s): R41.0 - DISORIENTATION, UNSPECIFIED (4) Orthostatic hypotension Assessment/Plan: -improved with compression stockings -seen by cardiology -Cardizem decreased to 120 mg Code(s): I95.1 - ORTHOSTATIC HYPOTENSION (5) Atrial fibrillation with RVR Assessment/Plan: -chronic, controlled -on eliquis Code(s): I48.91 - UNSPECIFIED ATRIAL FIBRILLATION (6) Hydronephrosis Assessment/Plan: -Renal U/S-moderate right hydronephrosis, which was present on previous imaging as well. -S/P Right ureteral stent exhange -repeat U/S renal shows new left hydronephrosis and no change in right hydronephrosis, would consult Urology again. Code(s): N13.30 - UNSPECIFIED HYDRONEPHROSIS Qualifiers: Hydronephrosis type: unspecified Qualified Code(s): N13.30 - Unspecified hydronephrosis; N13.30 - Unspecified hydronephrosis (7) Recurrent falls Assessment/Plan: -maintain safety measures, encouraged to move patient closer to Nurses station. -Started on seroquel at bedtime, tolerating well, no more falls or agitation overnight Code(s): R29.6 - REPEATED FALLS Assessment/Plan S/P exchange right ureteral stent and awaiting bed at SNF/[facility] closer to where daughter lives. Spoke to daughter over the phone. Informed space planner. Daughter is willing to pay for the transportation. Spoke to daughter about Orchiectomy, she agrees to the plan to go ahead with the procedure vs receiving lupron injections, as he is being denied by [facility]. As per urology the procedure could be done as outpatient. Daughter prefers to do the procedure during his hospital stay and have him transferred up to [facility] where daughter lives. Urology to re-evaluate
--- NOTE | 2017-07-16 11:48 | PN ---
Progress Note, Physician Chief Complaint: Not in distress Confusion persists with underlying dementia History of Present Illness: Patient was seen and examined. Awake. Baseline dementia. Chart was reviewed Denies chest pain, SOB or palpitation - Current Medication List Current Medications: Active Medications Acetaminophen (Tylenol -) 650 mg PO Q6H PRN PRN Reason: PAIN Last Admin: 07/11/17 03:36 Dose: 650 mg Apixaban (Eliquis -) 5 mg PO BID [facility] Last Admin: 07/16/17 09:30 Dose: 5 mg Artificial Tears (Artificial Tears) 1 drop OU BID PRN PRN Reason: DRY EYES Bicalutamide (Casodex -) 50 mg PO DAILY [facility] Last Admin: 07/16/17 09:30 Dose: 50 mg Diltiazem HCl (Cardizem Cd -) 120 mg PO DAILY [facility] Last Admin: 07/16/17 09:29 Dose: 120 mg Donepezil HCl (Aricept -) 10 mg PO DAILY [facility] Last Admin: 07/16/17 09:29 Dose: 10 mg Nicotine (Nicoderm Patch -) 14 mg TD DAILY [facility] Last Admin: 07/16/17 09:30 Dose: 14 mg Pantoprazole Sodium (Protonix -) 40 mg PO DAILY [facility] Last Admin: 07/16/17 09:29 Dose: 40 mg Polyethylene Glycol (Miralax (For Daily Use) -) 17 gm PO DAILY [facility] Last Admin: 07/16/17 09:30 Dose: 17 gm Quetiapine Fumarate (Seroquel -) 25 mg PO HS [facility] Last Admin: 07/15/17 21:11 Dose: 25 mg - Objective Vital Signs: Vital Signs Temperature 98.3 F 07/16/17 08:23 Pulse Rate 80 07/16/17 08:23 Respiratory Rate 18 07/16/17 08:23 Blood Pressure 158/60 07/16/17 08:23 O2 Sat by Pulse Oximetry (%) 98 07/16/17 09:00 Neck: Yes: Supple Cardiovascular: Yes: Pulse Irregular, S1, S2 Respiratory: Yes: Diminished Gastrointestinal: Yes: Normal Bowel Sounds, Soft, Abdomen, Obese. No: Tenderness Edema: No Problem List - Problems (1) SILAS (acute kidney injury) Code(s): N17.9 - ACUTE KIDNEY FAILURE, UNSPECIFIED (2) Generalized weakness Code(s): R53.1 - WEAKNESS (3) Prostate cancer Code(s): C61 - MALIGNANT NEOPLASM OF PROSTATE (4) Toxic metabolic encephalopathy Code(s): G92 - TOXIC ENCEPHALOPATHY (5) UTI (urinary tract infection) Code(s): N39.0 - URINARY TRACT INFECTION, SITE NOT SPECIFIED Qualifiers: Urinary tract infection type: site unspecified (6) Atrial fibrillation with RVR Code(s): I48.91 - UNSPECIFIED ATRIAL FIBRILLATION (7) CVA (cerebral infarction) Code(s): I63.9 - CEREBRAL INFARCTION, UNSPECIFIED Qualifiers: Cerebral infarction mechanism: unspecified mechanism Qualified Code(s) : I63.9 - Cerebral infarction, unspecified; I63.9 - Cerebral infarction, unspecified; I63.9 - Cerebral infarction, unspecified; I63.9 - Cerebral infarction, unspecified (8) Diabetes Code(s): E11.9 - TYPE 2 DIABETES MELLITUS WITHOUT COMPLICATIONS Qualifiers: Diabetes mellitus type: type 2 Diabetes mellitus complication status: without complication (9) HTN (hypertension) Code(s): I10 - ESSENTIAL (PRIMARY) HYPERTENSION Qualifiers: Hypertension type: essential hypertension Qualified Code(s): I10 - Essential (primary) hypertension; I10 - Essential (primary) hypertension; I10 - Essential (primary) hypertension Assessment/Plan 1. UTI with toxic metabolic encephalopathy 2. CKD with h/o acute kidney injury (post obstructive-prostate cancer) 3. History of Digoxin toxicity - resolved 4. Permanent atrial fibrillation with variable ventricular response 5. History of hypertension 6. COPD/emphysema with history of exacerbation 7. Type 2 diabetes mellitus 8. Prostate cancer causing extrinsic ureteral compression and hydronephrosis post intervention - post bilateral stents, bladder biopsy 9. 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 Monitor renal function and electrolytes. 2. Continue Cardizem CD 240 qd and titrate as tolerated 3. Currently on Eliquis 5 mg BID 4. Consider ACEI or ARB once renal function stabilizes 5. Fall precaution. Continue PT and eventual placement in SNF Han Nowak MD
--- NOTE | 2017-07-16 12:31 | PN ---
Progress Note (short form) - Note Progress Note: Renal Follow up for CKD Pt seen and examined at the bedside awake and alert no overnight events voiding well no sob, chest pain, abd pain Vital Signs Temperature 98.3 F 07/16/17 08:23 Pulse Rate 80 07/16/17 08:23 Respiratory Rate 18 07/16/17 08:23 Blood Pressure 158/60 07/16/17 08:23 O2 Sat by Pulse Oximetry (%) 98 07/16/17 09:00 Intake & Output 07/13/17 07/14/17 07/15/17 07/16/17 23:59 23:59 23:59 23:59 Intake Total 540 1080 720 250 Output Total 150 250 200 Balance 390 830 520 250 Gen: NAD, awake and alert CVS: RRR Lungs: CTA, no rales or wheeze Abd: soft NT/ND Ext: No edema CBC, BMP 07/10/17 06:00 07/13/17 06:00 Current Medications Acetaminophen (Tylenol -) 650 mg PO Q6H PRN PRN Reason: PAIN Last Admin: 07/11/17 03:36 Dose: 650 mg Apixaban (Eliquis -) 5 mg PO BID [facility] Last Admin: 07/16/17 09:30 Dose: 5 mg Artificial Tears (Artificial Tears) 1 drop OU BID PRN PRN Reason: DRY EYES Bicalutamide (Casodex -) 50 mg PO DAILY [facility] Last Admin: 07/16/17 09:30 Dose: 50 mg Diltiazem HCl (Cardizem Cd -) 120 mg PO DAILY [facility] Last Admin: 07/16/17 09:29 Dose: 120 mg Donepezil HCl (Aricept -) 10 mg PO DAILY [facility] Last Admin: 07/16/17 09:29 Dose: 10 mg Nicotine (Nicoderm Patch -) 14 mg TD DAILY [facility] Last Admin: 07/16/17 09:30 Dose: 14 mg Pantoprazole Sodium (Protonix -) 40 mg PO DAILY [facility] Last Admin: 07/16/17 09:29 Dose: 40 mg Polyethylene Glycol (Miralax (For Daily Use) -) 17 gm PO DAILY [facility] Last Admin: 07/16/17 09:30 Dose: 17 gm Quetiapine Fumarate (Seroquel -) 25 mg PO HS [facility] Last Admin: 07/15/17 21:11 Dose: 25 mg A/P 66 year old gentleman with PMhx of COPD, Diverticulitis, DM, 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 #Hx of SILAS/CKD Stage 3 Renal function remains stable at this time US showed persistent hydroneprhosis but unclear if functional #Prostate Ca continue casodex, urology follow up Out of bed to chair today maintain good oral fluid intake Thank you will follow
--- NOTE | 2017-07-16 18:40 | PN ---
Progress Note (short form) - Note Progress Note: NEUROLOGY FOLLOW-UP: Events reviewed. Metabolically stable without signs of ongoing infection. Pt. remains quite confused, on Donepezil (10 mg) and seroquel (25 mg QHS). Exam: Awake, alert. Claims he is in "[place]" and that "they just brought me here." Confabulatory? Non-focal exam sig for rigid tone. No cogwheeling. Withdraws all 4's. IMP: Severe, B/L cerebral dysfunction (OMS, Chronic features). Suggest: Continue donepezil. Consider thiamine supplementation. Thank you, Garrison Rea MD
[2017-07-16] MEDS: QUEtiapine FUMARATE 25 MG TABLET (FP) PO SCH (21:22)
[2017-07-16] MEDS: THIAMINE HCL 100 MG TABLET (FP) PO SCH (21:22)
[2017-07-16] MEDS: ACETAMINOPHEN 325 MG TABLET (FP) PO PRN (22:32)
[2017-07-17 07:37] LABS: ANION GAP 4 (8-16); CO2 33 mmol/L (21-32); CREATININE 1.5 mg/dL (0.7-1.3); GLUCOSE,RANDOM 98 mg/dL (74-106); MAGNESIUM 2.4 mg/dL (1.8-2.4); PHOSPHOROUS 3.8 mg/dL (2.5-4.9)
[2017-07-17] MEDS ORDERED: PT OWN MED DRAWER 7, Y5N ONE (09:16)
[2017-07-17] MEDS: POLYETHYLENE GLYCOL 3350 119 GM BTL PO SCH (09:19)
[2017-07-17] MEDS: PANTOPRAZOLE 40 MG TABLET (FP) PO SCH (09:19)
[2017-07-17] MEDS: BICALUTAMIDE 50 MG TABLET (FP) PO SCH (09:19)
[2017-07-17] MEDS: APIXABAN 5 MG TABLET PO SCH ×2 (09:19→21:22)
[2017-07-17] MEDS: NICOTINE 14 MG/24 HOURS TOPICAL PATCH TD SCH (09:19)
[2017-07-17] MEDS: DONEPEZIL HCL 10 MG TABLET (FP) PO SCH (09:19)
--- NOTE | 2017-07-17 12:08 | PN ---
Progress Note, Physician History of Present Illness: No complaints, episodes of confusion. - Current Medication List Current Medications: Active Medications Acetaminophen (Tylenol -) 650 mg PO Q6H PRN PRN Reason: PAIN Last Admin: 07/16/17 22:32 Dose: 650 mg Apixaban (Eliquis -) 5 mg PO BID [facility] Last Admin: 07/17/17 09:19 Dose: 5 mg Artificial Tears (Artificial Tears) 1 drop OU BID PRN PRN Reason: DRY EYES Bicalutamide (Casodex -) 50 mg PO DAILY [facility] Last Admin: 07/17/17 09:19 Dose: 50 mg Diltiazem HCl (Cardizem Cd -) 120 mg PO DAILY [facility] Last Admin: 07/17/17 09:19 Dose: 120 mg Donepezil HCl (Aricept -) 10 mg PO DAILY [facility] Last Admin: 07/17/17 09:19 Dose: 10 mg Nicotine (Nicoderm Patch -) 14 mg TD DAILY [facility] Last Admin: 07/17/17 09:19 Dose: 14 mg Pantoprazole Sodium (Protonix -) 40 mg PO DAILY [facility] Last Admin: 07/17/17 09:19 Dose: 40 mg Polyethylene Glycol (Miralax (For Daily Use) -) 17 gm PO DAILY [facility] Last Admin: 07/17/17 09:19 Dose: 17 gm Quetiapine Fumarate (Seroquel -) 25 mg PO [facility] Last Admin: 07/16/17 21:22 Dose: 25 mg Thiamine HCl (Vitamin B1 -) 100 mg PO [facility] Last Admin: 07/16/17 21:22 Dose: 100 mg - Objective Vital Signs: Vital Signs Temperature 97.6 F 07/17/17 09:18 Pulse Rate 87 07/17/17 09:18 Respiratory Rate 20 07/17/17 09:18 Blood Pressure 136/83 07/17/17 09:18 O2 Sat by Pulse Oximetry (%) 95 07/16/17 20:56 Constitutional: Yes: No Distress, Calm Neck: Yes: Supple Cardiovascular: Yes: Regular Rate and Rhythm Respiratory: Yes: Regular, Diminished Gastrointestinal: Yes: Normal Bowel Sounds, Soft Edema: No Labs: CBC, BMP 07/10/17 06:00 07/17/17 06:00 INR, PTT INR 1.47 (0.82-1.09) H 07/13/17 06:00 Problem List - Problems (1) Prostate cancer Code(s): C61 - MALIGNANT NEOPLASM OF PROSTATE (2) UTI (urinary tract infection) Code(s): N39.0 - URINARY TRACT INFECTION, SITE NOT SPECIFIED Qualifiers: Urinary tract infection type: site unspecified (3) Atrial fibrillation with RVR Code(s): I48.91 - UNSPECIFIED ATRIAL FIBRILLATION (4) Diabetes Code(s): E11.9 - TYPE 2 DIABETES MELLITUS WITHOUT COMPLICATIONS Qualifiers: Diabetes mellitus type: type 2 Diabetes mellitus complication status: without complication (5) Diastolic CHF Code(s): I50.30 - UNSPECIFIED DIASTOLIC (CONGESTIVE) HEART FAILURE Qualifiers : Congestive heart failure chronicity: chronic Qualified Code(s): I50.32 - Chronic diastolic (congestive) heart failure; I50.32 - Chronic diastolic (congestive) heart failure; I50.32 - Chronic diastolic (congestive) heart failure; I50.32 - Chronic diastolic (congestive) heart failure (6) HTN (hypertension) Code(s): I10 - ESSENTIAL (PRIMARY) HYPERTENSION Qualifiers: Hypertension type: essential hypertension Qualified Code(s): I10 - Essential (primary) hypertension; I10 - Essential (primary) hypertension; I10 - Essential (primary) hypertension (7) Hyperlipidemia associated with type 2 diabetes mellitus Code(s): E11.69 - TYPE 2 DIABETES MELLITUS WITH OTHER SPECIFIED COMPLICATION E78.5 - HYPERLIPIDEMIA, UNSPECIFIED (8) Gait disturbance Code(s): R26.9 - UNSPECIFIED ABNORMALITIES OF GAIT AND MOBILITY (9) Toxic metabolic encephalopathy Code(s): G92 - TOXIC ENCEPHALOPATHY (10) Hydronephrosis Code(s): N13.30 - UNSPECIFIED HYDRONEPHROSIS Qualifiers: Hydronephrosis type: unspecified Qualified Code(s): N13.30 - Unspecified hydronephrosis; N13.30 - Unspecified hydronephrosis Assessment/Plan 05/20/2017 Echo: Normal LV size and fxn without sig valve abnl 1. UTI with toxic metabolic encephelopathy, resolved 2. CAD angina pectoris, stable 3. Diastolic LV dysfunction with class 0-I NYHA classification LV congestive heart failure, compensated/euvolemic 4. Permanent atrial fibrillation on chronic A/C with NOAC's/Eliquis 5. HTN 6. DM 7. COPD/emphysema 8. CKD with h/o acute kidney injury 9. Prostate carcinoma, causing extrinsic ureteral compression and hydronephrosis post TUVP and right ureteral stent exchange POD#11 10. Anemia 11. History of Digoxin toxicity - resolved PLAN: 1. Continue Cardizem CD 120 qd, dose decreased due to orthostasis since resolved 2. Continue Eliquis 5 bid with close monitoring of CBC 3. Consider ACEI or ARB once renal function stabilizes 4. Continue to monitor renal function closely, awaiting orchiectomy vs Lupron injections as outpatient, would hold Eliquis 2 days prior to surgery and resume once post-op hemostasis has been achieved ,.
--- NOTE | 2017-07-17 13:22 | PN ---
Progress Note (short form) - Note Progress Note: Renal Follow up for CKD Pt seen and examined at the bedside awake and alert no overnight events Vital Signs Temperature 97.6 F 07/17/17 09:18 Pulse Rate 87 07/17/17 09:18 Respiratory Rate 20 07/17/17 09:18 Blood Pressure 136/83 07/17/17 09:18 O2 Sat by Pulse Oximetry (%) 95 07/16/17 20:56 Intake & Output 07/14/17 07/15/17 07/16/17 07/17/17 23:59 23:59 23:59 23:59 Intake Total 1080 650 267 2064 Output Total 250 200 Balance 830 324 125 3128 Gen: NAD, awake and alert CVS: RRR Lungs: CTA, no rales or wheeze Abd: soft NT/ND Ext: No edema CBC, BMP 07/10/17 06:00 07/17/17 06:00 Laboratory Tests 07/17/17 06:00 Calcium 9.0 Phosphorus 3.8 Magnesium 2.4 Current Medications Acetaminophen (Tylenol -) 650 mg PO Q6H PRN PRN Reason: PAIN Last Admin: 07/16/17 22:32 Dose: 650 mg Apixaban (Eliquis -) 5 mg PO BID [facility] Last Admin: 07/17/17 09:19 Dose: 5 mg Artificial Tears (Artificial Tears) 1 drop OU BID PRN PRN Reason: DRY EYES Bicalutamide (Casodex -) 50 mg PO DAILY [facility] Last Admin: 07/17/17 09:19 Dose: 50 mg Diltiazem HCl (Cardizem Cd -) 120 mg PO DAILY [facility] Last Admin: 07/17/17 09:19 Dose: 120 mg Donepezil HCl (Aricept -) 10 mg PO DAILY [facility] Last Admin: 07/17/17 09:19 Dose: 10 mg Nicotine (Nicoderm Patch -) 14 mg TD DAILY [facility] Last Admin: 07/17/17 09:19 Dose: 14 mg Pantoprazole Sodium (Protonix -) 40 mg PO DAILY [facility] Last Admin: 07/17/17 09:19 Dose: 40 mg Polyethylene Glycol (Miralax (For Daily Use) -) 17 gm PO DAILY [facility] Last Admin: 07/17/17 09:19 Dose: 17 gm Quetiapine Fumarate (Seroquel -) 25 mg PO HS [facility] Last Admin: 07/16/17 21:22 Dose: 25 mg Thiamine HCl (Vitamin B1 -) 100 mg PO HS [facility] Last Admin: 07/16/17 21:22 Dose: 100 mg A/P 66 year old gentleman with PMhx of COPD, Diverticulitis, DM, Recent SILAS secondary to obstructive nephropathy (bladder inlet obstruction), Recently diagnosed prostate Ca who presented with AMS at the CT and found to have suspected UTI and Delirium. #Hx of SILAS/CKD Stage 3 Renal function stable tolerating oral intake avoid NSAIDS, IV contrast #Prostate Ca continue casodex, urology follow up Out of bed to chair today maintain good oral fluid intake Thank you will follow
--- NOTE | 2017-07-17 15:19 | PN ---
Progress Note, Physician Chief Complaint: UTI,AMS History of Present Illness: NAD, in bed, mental status improved S/P ureteral stent exchange Patient sleeps throughout the night. Would continue Seroquel for now. CT head was negative seen by Neurology, cardiology and nephrology awaiting call back from urology to schedule patient for orchiectomy - Current Medication List Current Medications: Active Medications Acetaminophen (Tylenol -) 650 mg PO Q6H PRN PRN Reason: PAIN Last Admin: 07/16/17 22:32 Dose: 650 mg Apixaban (Eliquis -) 5 mg PO BID [facility] Last Admin: 07/17/17 09:19 Dose: 5 mg Artificial Tears (Artificial Tears) 1 drop OU BID PRN PRN Reason: DRY EYES Bicalutamide (Casodex -) 50 mg PO DAILY [facility] Last Admin: 07/17/17 09:19 Dose: 50 mg Diltiazem HCl (Cardizem Cd -) 120 mg PO DAILY [facility] Last Admin: 07/17/17 09:19 Dose: 120 mg Donepezil HCl (Aricept -) 10 mg PO DAILY [facility] Last Admin: 07/17/17 09:19 Dose: 10 mg Nicotine (Nicoderm Patch -) 14 mg TD DAILY [facility] Last Admin: 07/17/17 09:19 Dose: 14 mg Pantoprazole Sodium (Protonix -) 40 mg PO DAILY [facility] Last Admin: 07/17/17 09:19 Dose: 40 mg Polyethylene Glycol (Miralax (For Daily Use) -) 17 gm PO DAILY [facility] Last Admin: 07/17/17 09:19 Dose: 17 gm Quetiapine Fumarate (Seroquel -) 25 mg PO HS [facility] Last Admin: 07/16/17 21:22 Dose: 25 mg Thiamine HCl (Vitamin B1 -) 100 mg PO HS [facility] Last Admin: 07/16/17 21:22 Dose: 100 mg - Objective Vital Signs: Vital Signs Temperature 97.8 F 07/17/17 14:39 Pulse Rate 74 07/17/17 14:39 Respiratory Rate 20 07/17/17 14:39 Blood Pressure 133/66 07/17/17 14:39 O2 Sat by Pulse Oximetry (%) 95 07/16/17 20:56 Constitutional: Yes: Well Nourished, No Distress, Calm Cardiovascular: Yes: Regular Rate and Rhythm Respiratory: Yes: Regular Musculoskeletal: Yes: WNL Extremities: Yes: WNL Edema: No Peripheral Pulses WNL: Yes Neurological: Yes: Alert, Confusion Psychiatric: Yes: Alert Labs: CBC, BMP 07/10/17 06:00 07/17/17 06:00 INR, PTT INR 1.47 (0.82-1.09) H 07/13/17 06:00 Problem List - Problems (1) Generalized weakness Assessment/Plan: -improved -Physical therapy Code(s): R53.1 - WEAKNESS (2) Adenocarcinoma of prostate Assessment/Plan: -on casodex -unable to receive Lupron due to coverage and financial issue, daughter has opted for Orchiectomy. -Urology to re-evaluate Code(s): C61 - MALIGNANT NEOPLASM OF PROSTATE (3) Delirium Assessment/Plan: -Improved -Brain MRI negative -Seen by neurology and psychiatry -on Donepezil 5mg , tolerating well -He was placed on seroquel after an episode of agitation and confusion post stent placement, which is very likely due to acute delirium secondary to anesthesia. Would monitor patient off seroquel. Code(s): R41.0 - DISORIENTATION, UNSPECIFIED (4) Orthostatic hypotension Assessment/Plan: -improved with compression stockings -seen by cardiology -Cardizem decreased to 120 mg Code(s): I95.1 - ORTHOSTATIC HYPOTENSION (5) Atrial fibrillation with RVR Assessment/Plan: -chronic, controlled -on eliquis Code(s): I48.91 - UNSPECIFIED ATRIAL FIBRILLATION (6) Hydronephrosis Assessment/Plan: -Renal U/S-moderate right hydronephrosis, which was present on previous imaging as well. -S/P Right ureteral stent exhange -repeat U/S renal shows new left hydronephrosis and no change in right hydronephrosis, would consult Urology again. Code(s): N13.30 - UNSPECIFIED HYDRONEPHROSIS Qualifiers: Hydronephrosis type: unspecified Qualified Code(s): N13.30 - Unspecified hydronephrosis; N13.30 - Unspecified hydronephrosis (7) Recurrent falls Assessment/Plan: -maintain safety measures, encouraged to move patient closer to Nurses station. -Started on seroquel at bedtime, tolerating well, no more falls or agitation overnight Code(s): R29.6 - REPEATED FALLS Assessment/Plan S/P exchange right ureteral stent and awaiting bed at SNF/[facility] closer to where daughter lives. Spoke to daughter over the phone. Informed business continuity planner. Daughter is willing to pay for the transportation. Spoke to daughter about Orchiectomy, she agrees to the plan to go ahead with the procedure vs receiving lupron injections, as he is being denied by [facility]. As per urology the procedure could be done as outpatient. Daughter prefers to do the procedure during his hospital stay and have him transferred up to [facility] where daughter lives. Awaiting Urology to re-evaluate and call back
--- NOTE | 2017-07-17 16:55 | DS ---
Physical Examination Vital Signs: Vital Signs Temperature 97.8 F 07/17/17 14:39 Pulse Rate 74 07/17/17 14:39 Respiratory Rate 20 07/17/17 14:39 Blood Pressure 133/66 07/17/17 14:39 O2 Sat by Pulse Oximetry (%) 95 07/16/17 20:56 Constitutional: Yes: Well Nourished, No Distress, Calm Cardiovascular: Yes: Pulse Irregular Respiratory: Yes: Regular Gastrointestinal: Yes: Normal Bowel Sounds Musculoskeletal: Yes: Muscle Weakness Extremities: Yes: WNL Edema: No Peripheral Pulses WNL: Yes Neurological: Yes: Alert, Confusion Psychiatric: Yes: Alert Labs: CBC, BMP 07/10/17 06:00 07/17/17 06:00 Discharge Summary Reason For Visit: MALIGNANT NEOPLASM OF PROSTATE Current Active Problems SILAS (acute kidney injury) (Acute) Confusion (Acute) Delirium (Acute) Gait disturbance (Acute) Generalized weakness (Acute) Orthostatic hypotension (Acute) Prostate cancer (Acute) Recurrent falls (Acute) Toxic metabolic encephalopathy (Acute) UTI (urinary tract infection) (Acute) Hospital Course: Mr. Shafer, a pleasantly confused 76 year old male came in through [facility] ER from [facility] for gradual increase in altered mental status. Patient was recently hospitalized for acute renal failure and diagnosed with Prostate adenocarcinoma, is currently on Chemotherapy. As per JIG GRINDER notes from [facility], patient had fallen 3 x in past 1 week, had hallucinations and orthostatic hypotension. Upon evaluation, his CXR and CT head was negative for any acute finding. However , labs indicated leukocytosis with +3 blood in his urine with negative nitrites. He has no fever, chills, fatigue, dysuria or polyuria. On his last admission, patient had typical symptoms of acute delirium with fluctuating attention, memory and agitation. He was evaluated by Neurology with no acute diagnosis but delerium secondary to general medical condition. Patient's health care proxy is his daughter Michelle who lives in [facility]. She has agreed to orchiectomy outpatient due to inability to receive Lupron for is prostate adenocarcinoma. In the meantime, patient will go back to [facility]. He is currently on Casodex for androgen suppression. It is important that he has his compression stockings when ambulating. He is a high Fall risk and all safety precautions are recommended. He is on anticoagulation for his chronic atrial fibrillation. Condition: Stable - Instructions Diet, Activity, Other Instructions: Follow up with Terri Celis MD to schedule orchiectomy outpatient. Patient should be transferred to [facility] where daughter lives thereafter. Referrals: Maye Castro MD [Primary Care Provider] - Disposition: [facility] - Home Medications Comprehensive Discharge Medication List: Ambulatory Orders Apixaban [Eliquis -] 5 mg PO BID tablet 06/12/17 Bicalutamide [Casodex -] 50 mg PO DAILY tablet 06/12/17 Nicotine Patch [Nicoderm Patch -] 14 mg TD DAILY patch 06/12/17 Pantoprazole Sodium [Protonix -] 40 mg PO DAILY tab 06/12/17 Polyethylene Glycol 3350 [Miralax 119 gm Btl -] 17 gm PO DAILY bottle 06/12/17 Polyvinyl Alcohol [Artificial Tears] 1 drop OU BID PRN #0 ml 06/12/17 Acetaminophen [Tylenol] 650 mg PO QID PRN 06/25/17 Diltiazem HCl [Cardizem LA] 240 mg PO DAILY 06/25/17 Donepezil HCl [Aricept -] 5 mg PO DAILY tablet 07/08/17
[2017-07-17] MEDS: QUEtiapine FUMARATE 25 MG TABLET (FP) PO SCH (21:22)
[2017-07-17] MEDS: THIAMINE HCL 100 MG TABLET (FP) PO SCH (21:22)
[2017-07-18 07:55] LABS: ANION GAP 6 (8-16); CO2 32 mmol/L (21-32); CREATININE 1.4 mg/dL (0.7-1.3); GLUCOSE,RANDOM 92 mg/dL (74-106); MAGNESIUM 2.4 mg/dL (1.8-2.4); PHOSPHOROUS 3.7 mg/dL (2.5-4.9)
[2017-07-18] MEDS ORDERED: PT OWN MED DRAWER 7, Y5N ONE (09:26)
[2017-07-18] MEDS: PANTOPRAZOLE 40 MG TABLET (FP) PO SCH (09:30)
[2017-07-18] MEDS: NICOTINE 14 MG/24 HOURS TOPICAL PATCH TD SCH (09:30)
[2017-07-18] MEDS: DONEPEZIL HCL 10 MG TABLET (FP) PO SCH (09:30)
[2017-07-18] MEDS: APIXABAN 5 MG TABLET PO SCH (09:30)
[2017-07-18] MEDS: POLYETHYLENE GLYCOL 3350 119 GM BTL PO SCH (09:31)
[2017-07-18] MEDS: BICALUTAMIDE 50 MG TABLET (FP) PO SCH (09:31)
--- NOTE | 2017-07-18 10:22 | PN ---
Progress Note, Physician Chief Complaint: UTI,AMS History of Present Illness: NAD, in bed, mental status improved S/P ureteral stent exchange Patient sleeps throughout the night. Would continue Seroquel for now. CT head was negative seen by Neurology, cardiology and nephrology awaiting call back from urology to schedule patient for orchiectomy - Current Medication List Current Medications: Active Medications Acetaminophen (Tylenol -) 650 mg PO Q6H PRN PRN Reason: PAIN Last Admin: 07/16/17 22:32 Dose: 650 mg Apixaban (Eliquis -) 5 mg PO BID [facility] Last Admin: 07/18/17 09:30 Dose: 5 mg Artificial Tears (Artificial Tears) 1 drop OU BID PRN PRN Reason: DRY EYES Bicalutamide (Casodex -) 50 mg PO DAILY [facility] Last Admin: 07/18/17 09:31 Dose: 50 mg Diltiazem HCl (Cardizem Cd -) 120 mg PO DAILY [facility] Last Admin: 07/18/17 09:30 Dose: 120 mg Donepezil HCl (Aricept -) 10 mg PO DAILY [facility] Last Admin: 07/18/17 09:30 Dose: 10 mg Nicotine (Nicoderm Patch -) 14 mg TD DAILY [facility] Last Admin: 07/18/17 09:30 Dose: 14 mg Pantoprazole Sodium (Protonix -) 40 mg PO DAILY [facility] Last Admin: 07/18/17 09:30 Dose: 40 mg Polyethylene Glycol (Miralax (For Daily Use) -) 17 gm PO DAILY [facility] Last Admin: 07/18/17 09:31 Dose: 17 gm Quetiapine Fumarate (Seroquel -) 25 mg PO HS [facility] Last Admin: 07/17/17 21:22 Dose: 25 mg Thiamine HCl (Vitamin B1 -) 100 mg PO HS [facility] Last Admin: 07/17/17 21:22 Dose: 100 mg - Objective Vital Signs: Vital Signs Temperature 97.9 F 07/18/17 05:48 Pulse Rate 79 07/18/17 05:48 Respiratory Rate 18 07/18/17 05:48 Blood Pressure 150/76 07/18/17 05:48 O2 Sat by Pulse Oximetry (%) 95 07/17/17 20:24 Constitutional: Yes: Well Nourished, No Distress, Calm Cardiovascular: Yes: Pulse Irregular Respiratory: Yes: Regular Edema: No Peripheral Pulses WNL: Yes Neurological: Yes: Alert Psychiatric: Yes: Alert Labs: CBC, BMP 07/10/17 06:00 07/18/17 06:00 INR, PTT INR 1.47 (0.82-1.09) H 07/13/17 06:00 Problem List - Problems (1) Generalized weakness Assessment/Plan: -improved -Physical therapy Code(s): R53.1 - WEAKNESS (2) Adenocarcinoma of prostate Assessment/Plan: -on casodex -unable to receive Lupron due to coverage and financial issue, daughter has opted for Orchiectomy. -Urology to re-evaluate Code(s): C61 - MALIGNANT NEOPLASM OF PROSTATE (3) Delirium Assessment/Plan: -Improved -Brain MRI negative -Seen by neurology and psychiatry -on Donepezil 5mg , tolerating well -He was placed on seroquel after an episode of agitation and confusion post stent placement, which is very likely due to acute delirium secondary to anesthesia. Would monitor patient off seroquel. Code(s): R41.0 - DISORIENTATION, UNSPECIFIED (4) Orthostatic hypotension Assessment/Plan: -improved with compression stockings -seen by cardiology -Cardizem decreased to 120 mg Code(s): I95.1 - ORTHOSTATIC HYPOTENSION (5) Atrial fibrillation with RVR Assessment/Plan: -chronic, controlled -on eliquis Code(s): I48.91 - UNSPECIFIED ATRIAL FIBRILLATION (6) Hydronephrosis Assessment/Plan: -Renal U/S-moderate right hydronephrosis, which was present on previous imaging as well. -S/P Right ureteral stent exhange -repeat U/S renal shows new left hydronephrosis and no change in right hydronephrosis, would consult Urology again. Code(s): N13.30 - UNSPECIFIED HYDRONEPHROSIS Qualifiers: Hydronephrosis type: unspecified Qualified Code(s): N13.30 - Unspecified hydronephrosis; N13.30 - Unspecified hydronephrosis (7) Recurrent falls Assessment/Plan: -maintain safety measures, encouraged to move patient closer to Nurses station. -Started on seroquel at bedtime, tolerating well, no more falls or agitation overnight Code(s): R29.6 - REPEATED FALLS Assessment/Plan S/P exchange right ureteral stent and awaiting bed at SNF[facility] closer to where daughter lives. Spoke to daughter over the phone. Informed senior production planner. Daughter is willing to pay for the transportation. Spoke to daughter about Orchiectomy, she agrees to the plan to go ahead with the procedure vs receiving lupron injections, as he is being denied by [facility]. As per urology the procedure could be done as outpatient. Daughter prefers to do the procedure during his hospital stay and have him transferred up to [facility] where daughter lives. Awaiting Urology to re-evaluate and call back
--- NOTE | 2017-07-18 10:38 | PN ---
Progress Note, Physician History of Present Illness: No complaints, episodes of confusion. - Current Medication List Current Medications: Active Medications Acetaminophen (Tylenol -) 650 mg PO Q6H PRN PRN Reason: PAIN Last Admin: 07/16/17 22:32 Dose: 650 mg Apixaban (Eliquis -) 5 mg PO BID [facility] Last Admin: 07/18/17 09:30 Dose: 5 mg Artificial Tears (Artificial Tears) 1 drop OU BID PRN PRN Reason: DRY EYES Bicalutamide (Casodex -) 50 mg PO DAILY [facility] Last Admin: 07/18/17 09:31 Dose: 50 mg Diltiazem HCl (Cardizem Cd -) 120 mg PO DAILY [facility] Last Admin: 07/18/17 09:30 Dose: 120 mg Donepezil HCl (Aricept -) 10 mg PO DAILY [facility] Last Admin: 07/18/17 09:30 Dose: 10 mg Nicotine (Nicoderm Patch -) 14 mg TD DAILY [facility] Last Admin: 07/18/17 09:30 Dose: 14 mg Pantoprazole Sodium (Protonix -) 40 mg PO DAILY [facility] Last Admin: 07/18/17 09:30 Dose: 40 mg Polyethylene Glycol (Miralax (For Daily Use) -) 17 gm PO DAILY [facility] Last Admin: 07/18/17 09:31 Dose: 17 gm Quetiapine Fumarate (Seroquel -) 25 mg PO [facility] Last Admin: 07/17/17 21:22 Dose: 25 mg Thiamine HCl (Vitamin B1 -) 100 mg PO [facility] Last Admin: 07/17/17 21:22 Dose: 100 mg - Objective Vital Signs: Vital Signs Temperature 97.9 F 07/18/17 05:48 Pulse Rate 79 07/18/17 05:48 Respiratory Rate 18 07/18/17 05:48 Blood Pressure 150/76 07/18/17 05:48 O2 Sat by Pulse Oximetry (%) 95 07/17/17 20:24 Constitutional: Yes: No Distress, Calm Neck: Yes: Supple Cardiovascular: Yes: Pulse Irregular Respiratory: Yes: Regular, Diminished Gastrointestinal: Yes: Normal Bowel Sounds, Soft Edema: No Labs: CBC, BMP 07/10/17 06:00 07/18/17 06:00 INR, PTT INR 1.47 (0.82-1.09) H 09/30/17 06:00 Problem List - Problems (1) Prostate cancer Code(s): C61 - MALIGNANT NEOPLASM OF PROSTATE (2) UTI (urinary tract infection) Code(s): N39.0 - URINARY TRACT INFECTION, SITE NOT SPECIFIED Qualifiers: Urinary tract infection type: site unspecified (3) Atrial fibrillation with RVR Code(s): I48.91 - UNSPECIFIED ATRIAL FIBRILLATION (4) Diabetes Code(s): E11.9 - TYPE 2 DIABETES MELLITUS WITHOUT COMPLICATIONS Qualifiers: Diabetes mellitus type: type 2 Diabetes mellitus complication status: without complication (5) Diastolic CHF Code(s): I50.30 - UNSPECIFIED DIASTOLIC (CONGESTIVE) HEART FAILURE Qualifiers : Congestive heart failure chronicity: chronic Qualified Code(s): I50.32 - Chronic diastolic (congestive) heart failure; I50.32 - Chronic diastolic (congestive) heart failure; I50.32 - Chronic diastolic (congestive) heart failure; I50.32 - Chronic diastolic (congestive) heart failure (6) HTN (hypertension) Code(s): I10 - ESSENTIAL (PRIMARY) HYPERTENSION Qualifiers: Hypertension type: essential hypertension Qualified Code(s): I10 - Essential (primary) hypertension; I10 - Essential (primary) hypertension; I10 - Essential (primary) hypertension (7) Hyperlipidemia associated with type 2 diabetes mellitus Code(s): E11.69 - TYPE 2 DIABETES MELLITUS WITH OTHER SPECIFIED COMPLICATION E78.5 - HYPERLIPIDEMIA, UNSPECIFIED (8) Gait disturbance Code(s): R26.9 - UNSPECIFIED ABNORMALITIES OF GAIT AND MOBILITY (9) Toxic metabolic encephalopathy Code(s): G92 - TOXIC ENCEPHALOPATHY (10) Hydronephrosis Code(s): N13.30 - UNSPECIFIED HYDRONEPHROSIS Qualifiers: Hydronephrosis type: unspecified Qualified Code(s): N13.30 - Unspecified hydronephrosis; N13.30 - Unspecified hydronephrosis Assessment/Plan 05/20/2017 Echo: Normal LV size and fxn without sig valve abnl 1. UTI with toxic metabolic encephelopathy, resolved 2. CAD angina pectoris, stable 3. Diastolic LV dysfunction with class 0-I NYHA classification LV congestive heart failure, compensated/euvolemic 4. Permanent atrial fibrillation on chronic A/C with NOAC's/Eliquis 5. HTN 6. DM 7. COPD/emphysema 8. CKD with h/o acute kidney injury 9. Prostate carcinoma, causing extrinsic ureteral compression and hydronephrosis post TUVP and right ureteral stent exchange POD#11 10. Anemia 11. History of Digoxin toxicity - resolved PLAN: 1. Continue Cardizem CD 120 qd, dose decreased due to orthostasis since resolved 2. Continue Eliquis 5 bid with close monitoring of CBC 3. Consider ACEI or ARB once renal function stabilizes 4. Continue to monitor renal function closely, awaiting orchiectomy vs Lupron injections as outpatient, would hold Eliquis 2 days prior to surgery and resume once post-op hemostasis has been achieved ,.
[2017-07-18 10:52] VITALS: PULSE 96
[2017-07-18 10:54] VITALS: BP 120/71; TEMP 98.1
== END 2017-07-18 12:57 | DRG 665 ==
LOC: JER 14:16 → JERBED 18:40 → J7W 20:28
PROVIDERS: ADMIT Family Medicine; ATTEND Family Medicine
PROC: 0T768DZ Dilation of Right Ureter with Intraluminal Device, Via Natural or Artificial Opening Endoscopic (ICD-10-PCS; 2017-07-05)
PROC: 0V508ZZ Destruction of Prostate, Via Natural or Artificial Opening Endoscopic (ICD-10-PCS; principal; 2017-07-05 14:00)
PROC: BT1DZZZ Fluoroscopy of Right Kidney, Ureter and Bladder (ICD-10-PCS; 2017-07-05 14:00)
DX: N39.0 Urinary tract infection, site not specified (principal); G92 Toxic encephalopathy; N17.9 Acute kidney failure, unspecified; I13.0 Hypertensive heart and chronic kidney disease with heart failure and stage 1 through stage 4 chronic kidney disease, or unspecified chronic kidney disease; I50.32 Chronic diastolic (congestive) heart failure; C61 Malignant neoplasm of prostate; N13.30 Unspecified hydronephrosis; I95.1 Orthostatic hypotension; R53.1 Weakness; I25.119 Atherosclerotic heart disease of native coronary artery with unspecified angina pectoris; I48.2 Chronic atrial fibrillation; D64.9 Anemia, unspecified; E11.9 Type 2 diabetes mellitus without complications; E78.5 Hyperlipidemia, unspecified; R26.9 Unspecified abnormalities of gait and mobility; R41.82 Altered mental status, unspecified; E11.22 Type 2 diabetes mellitus with diabetic chronic kidney disease; N18.3 Chronic kidney disease, stage 3 (moderate); J44.9 Chronic obstructive pulmonary disease, unspecified; R29.6 Repeated falls; D72.829 Elevated white blood cell count, unspecified; F03.90 Unspecified dementia, unspecified severity, without behavioral disturbance, psychotic disturbance, mood disturbance, and anxiety
CPT/HCPCS: 36415; 70450-TC; 70551-TC; 71010-TC; 73030-TC-RT; 76000-TC; 76775-TC; 76856-TC; 80048; 80053; 80162; 81003; 81015; 82607; 83735; 83930; 84100; 84153; 84402; 84425; 84443; 84484; 85025; 85610; 85651; 85730; 86140; 86593; 87040; 87086; 87186; 88108; 88300-TC; 88305-TC; 93005; 93010; 94760; 97116-GP; 97161-GP; 99282-25; J1644

== ENCOUNTER 2017-08-21 16:25 | Inpatient (IN) | payer OTHER ==
--- NOTE | 2017-08-21 17:12 | PDOC ---
Attending Attestation - Resident Resident Name: Roslyn Cai - ED Attending Attestation I have performed the following: I have examined & evaluated the patient, The case was reviewed & discussed with the resident, I agree w/resident's findings & plan, Exceptions are as noted - HPI HPI: 77 yo M history dementia, prostate CA, testicular tumor, afib on eliquis, SILAS, DM, HTN, COPD presents for admission for procedure Saturday. Patient is unclear what the procedure is and the long-term documentation is unclear. - Physicial Exam PE: GENERAL: Awake, alert, and oriented to person and place, in no acute distress HEAD: No signs of trauma EYES: PERRLA, EOMI, sclera anicteric, conjunctiva clear ENT: Auricles normal inspection, hearing grossly normal, nares patent, oropharynx clear without exudates. Moist mucosa NECK: Normal ROM, supple, no lymphadenopathy, JVD, or masses LUNGS: Breath sounds equal, clear to auscultation bilaterally. No wheezes, and no crackles HEART: Regular rate and rhythm, normal S1 and S2, no murmurs, rubs or gallops ABDOMEN: Soft, nontender, normoactive bowel sounds. No guarding, no rebound. No masses EXTREMITIES: Normal range of motion, no edema. No clubbing or cyanosis. No cords, erythema, or tenderness NEUROLOGICAL: Cranial nerves II through XII grossly intact. Normal speech. Motor and sensation intact. SKIN: Warm, Dry, normal turgor, no rashes or lesions noted. - Medical Decision Making As per resident discussion with PMD, patient is for procedure on Saturday, needs to start lovenox. He did not require transfer to hospital at this time, can be discharged back.
[2017-08-21 17:37] LABS: BASOPHIL 0.8 % (0-2.0); EOSINOPHIL 3.2 % (0-4.5); MCH 30.6 pg (25.7-33.7); MCHC 34.4 g/dl (32.0-35.9); MEAN CELL VOLUME 88.8 fl (80-96); MEAN PLT VOLUME 7.2 fl (7.5-11.1); NEUTROPHILS 77.4 % (42.8-82.8); PLATELET COUNT 338 K/MM3 (134-434); RDW 12.7 % (11.9-15.9)
--- NOTE | 2017-08-21 18:01 | PDOC ---
History of Present Illness - General Chief Complaint: Wound Stated Complaint: PRE-OP Time Seen by Provider: 08/21/17 16:49 History Source: Patient, Family Exam Limitations: Dementia - History of Present Illness Initial Comments: This is a 77 YOM with h/o prostate CA (on chemotherapy as of July 2017), testicular tumor, A-fib on Eliquis, SILAS, DM, HTN, COPD, prior osteomyelitis, Alzheimer's dementia, and schizophrenia who presents for pre-op admission for a procedure on Saturday. He was BIBA from [facility] to the ED. The patient is unable to provide the bulk of his PMH 2/2 dementia. His daughter is telephoned and states that he had a scheduled admission for this procedure on Saturday, and she does not understand why he needed to be brought to the ED, but [facility] noted this is their protocol. The daughter also notes that the patient has a recently reported pressure ulcer per [facility] staff. The patient himself denies any symptoms. Past History - Past Medical History Allergies/Adverse Reactions: Allergies Allergy/AdvReac Type Severity Reaction Status Date / Time amoxicillin trihydrate Allergy Mild Verified 06/25/17 14:33 [From Augmentin] potassium clavulanate AdvReac Unknown Verified 06/25/17 14:33 [From Augmentin] Home Medications: Ambulatory Orders Apixaban [Eliquis -] 5 mg PO BID tablet 06/12/17 Bicalutamide [Casodex -] 50 mg PO DAILY tablet 06/12/17 Nicotine Patch [Nicoderm Patch -] 14 mg TD DAILY patch 06/12/17 Pantoprazole Sodium [Protonix -] 40 mg PO DAILY tab 06/12/17 Polyethylene Glycol 3350 [Miralax 119 gm Btl -] 17 gm PO DAILY bottle 06/12/17 Polyvinyl Alcohol [Artificial Tears] 1 drop OU BID PRN #0 ml 06/12/17 Acetaminophen [Tylenol] 650 mg PO QID PRN 06/25/17 Diltiazem HCl [Cardizem LA] 240 mg PO DAILY 06/25/17 Donepezil HCl [Aricept -] 10 mg PO DAILY tablet 07/17/17 Quetiapine Fumarate [Seroquel -] 25 mg PO HS tablet 07/17/17 Thiamine HCl [Vitamin B1 -] 100 mg PO HS tablet 07/17/17 Cardiac Disorders: Yes (A-FIB) COPD: No (emphysema) Diabetes: Yes (NIDDM) GI Disorders: Yes (divertivculitis) HTN: Yes Hypercholesterolemia: Yes - Suicide/Smoking/Psychosocial Hx Smoking History: Former smoker Have you smoked in the past 12 months: No Number of Cigarettes Smoked Daily: 20 Information on smoking cessation initiated: No 'Breaking Loose' booklet given: 09/28/14 Hx Alcohol Use: No (past) Drug/Substance Use Hx: No Substance Use Type: None Review of Systems - Review of Systems Able to Perform ROS?: Yes Is the patient limited [place] proficient: No Constitutional: No: Chills, Fever, Unexplained wgt Loss HEENTM: No: Nose Congestion, Throat Pain Respiratory: No: Cough, Shortness of Breath Cardiac (ROS): No: Chest Pain, Palpitations ABD/GI: No: Constipated, Diarrhea, Nausea, Vomiting : No: Burning, Dysuria Musculoskeletal: No: Back Pain, Neck Pain Integumentary: No: Bruising, Rash Neurological: No: Headache, Numbness, Tingling, Weakness, Dizziness Endocrine: No: Unexplained Weight Gain, Unexplained Weight Loss *Physical Exam - Vital Signs Last Vital Signs Temp Pulse Resp BP Pulse Ox 99.1 F 74 20 111/74 100 08/21/17 16:33 08/21/17 16:33 08/21/17 16:33 08/21/17 16:33 08/21/17 16:33 - Physical Exam General Appearance: Yes: Nourished, Appropriately Dressed, Other (alert, conversive, answering questions appropriately but also does not know answers to many questions). No: Apparent Distress HEENT: positive: EOMI, Normal Voice, Hearing Grossly Normal, Other (left inferior earlobe with verrucus-appearing 1x0.5cm lesion). negative: Scleral Icterus (R), Scleral Icterus (L), Nasal Congestion Neck: positive: Trachea midline, Supple. negative: Tender, Rigid Respiratory/Chest: positive: Lungs Clear, Normal Breath Sounds. negative: Respiratory Distress, Crackles, Rhonchi, Stridor, Wheezing Cardiovascular: positive: Regular Rhythm, Regular Rate. negative: Murmur Gastrointestinal/Abdominal: positive: Normal Bowel Sounds, Soft. negative: Tender, Organomegaly, Pulsatile Mass, Guarding Musculoskeletal: positive: Normal Inspection. negative: Decreased Range of Motion, Vertebral Tenderness Extremity: positive: Normal Capillary Refill, Normal Inspection, Normal Range of Motion, Other (right 5th toe lateral aspect with 2mm scabbed ulcer). negative: Tender, Cyanosis Integumentary: positive: Normal Color, Dry, Warm. 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 Presents for "preop preparation for Saturday" from [facility]. He has a bilateral orchiectomy scheduled for Saturday. Pt is asymptomatic and exam is benign. Dr. Rico, Dr. Cantu, and Dr. Montoya note he needs heparin or Lovenox tonight and tomorrow. He will be admitted to Dr. Montoya who is placing orders. *DC/Admit/Observation/Transfer Diagnosis at time of Disposition: Prostate cancer - Discharge Dispostion Condition at time of disposition: Stable Admit: Yes - Referrals - Patient Instructions - Post Discharge Activity
[2017-08-21 18:02] LABS: INR 1.26 (0.82-1.09); PROTHROMBIN TIME (PATIENT) 14.2 SEC (9.98-11.88)
[2017-08-21 18:14] LABS: ALBUMIN 2.9 g/dl (3.4-5.0); ALK PHOS 101 U/L (45-117); ANION GAP 5 (8-16); BILIRUBIN,TOTAL 0.3 mg/dL (0.2-1.0); CALCIUM 8.8 mg/dL (8.5-10.1); CO2 31 mmol/L (21-32); CREATININE 1.9 mg/dL (0.7-1.3); GLUCOSE,RANDOM 95 mg/dL (74-106); SGOT/AST 9 U/L (15-37); SGPT/ALT 9 U/L (12-78); TOT PROT 6.2 g/dl (6.4-8.2)
[2017-08-21] MEDS ORDERED: ENOXAPARIN NA (PORCINE) 100 MG/1 ML DISP.SYRIN SQ ONE ×2 (19:37→19:42)
[2017-08-21] MEDS ORDERED: ACETAMINOPHEN 325 MG TABLET (FP) PO PRN (19:46)
[2017-08-21] MEDS ORDERED: ARTIFICIAL TEARS (POLYVINYL ALCOHOL 1.4%) OPTH DROPS OU PRN (19:46)
[2017-08-21] MEDS: POTASSIUM CHLORIDE 10 MEQ in SODIUM CHLORIDE 0.45% 1,000 ML IVPB SCH (20:14)
[2017-08-21] MEDS ORDERED: KCL 10 MEQ IVPB 20 MEQ/200 ML INFUS.BAG IVPB ONE (20:16)
[2017-08-21] MEDS ORDERED: QUEtiapine FUMARATE 25 MG TABLET (FP) ONE (23:26)
[2017-08-21] MEDS: THIAMINE HCL 100 MG TABLET (FP) PO SCH (23:27)
[2017-08-21] MEDS: QUEtiapine FUMARATE 25 MG TABLET (FP) PO SCH (23:27)
[2017-08-22] MEDS: ALBUTEROL SO4 0.083% IH SOL 2.5 MG/3 ML VIAL.NEB. NEB SCH ×5 (00:35→23:04)
[2017-08-22 02:29] VITALS: BMI 24.6
[2017-08-22 04:38] LABS: URINE APPEARANCE CLOUDY; URINE BILIRUBIN NEGATIVE (NEGATIVE); URINE BLOOD 3+ (NEGATIVE); URINE COLOR YELLOW; URINE GLUCOSE (UA) NEGATIVE (NEGATIVE); URINE KETONE NEGATIVE (NEGATIVE); URINE NITRITE NEGATIVE (NEGATIVE); URINE UROBILINOGEN NEGATIVE mg/dL (0.2-1.0)
[2017-08-22 04:43] LABS: URINE PROTEIN 1+ (NEGATIVE)
[2017-08-22 04:45] LABS: URINE RBC 115 /hpf (0-3); URINE WBC 475 /hpf (3-5)
[2017-08-22 09:36] LABS: URINE LEUK ESTERASE 3+ (NEGATIVE)
[2017-08-22 09:51] LABS: BASOPHIL 0.9 % (0-2.0); MCH 30.4 pg (25.7-33.7); MCHC 34.2 g/dl (32.0-35.9); MEAN PLT VOLUME 7.5 fl (7.5-11.1); NEUTROPHILS 73.7 % (42.8-82.8); PLATELET COUNT 262 K/MM3 (134-434); RDW 12.6 % (11.9-15.9); WHITE BLOOD COUNT 10.4 K/mm3 (4.0-10.0)
[2017-08-22] MEDS ORDERED: PT OWN MED DRAWER 7, Y5N ONE (10:04)
[2017-08-22] MEDS: PANTOPRAZOLE 40 MG TABLET (FP) PO SCH (10:11)
[2017-08-22] MEDS: NICOTINE 14 MG/24 HOURS TOPICAL PATCH TD SCH (10:11)
[2017-08-22] MEDS: DONEPEZIL HCL 10 MG TABLET (FP) PO SCH (10:11)
[2017-08-22] MEDS: POLYETHYLENE GLYCOL 3350 119 GM BTL PO SCH (10:13)
[2017-08-22 11:26] LABS: ANION GAP 10 (8-16); CALCIUM 8.7 mg/dL (8.5-10.1); CO2 26 mmol/L (21-32); CREATININE 1.9 mg/dL (0.7-1.3); GLUCOSE,RANDOM 129 mg/dL (74-106)
--- NOTE | 2017-08-22 11:31 | CON.CARD ---
Consult Consult Specialty:: Cardiology Referred by:: Hospitalist Reason for Consultation:: Cardiac evaluation - History of Present Illness Chief Complaint: Pre-op evaluation History of Present Illness: Patient is a 77 year old male well known to me with underlying history of atrial fibrillation on NOAC, COPD/emphysema, long cigarette smoking history, diverticulitis, hypertension, type 2 diabetes mellitus, hypercholesterolemia, history of acute on chronic kidney disease, prostate CA with obstructive nephropathy who now presents for orthiectomy tomorrow. He denies chest pain, shortness of breath or palpitations. He denies paroxysmal nocturnal dyspnea or orthopnea. He denies fever or chills. He denies headache or lightheadedness. 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, 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 Travel: No Home Medications - Allergies Allergies/Adverse Reactions: Allergies Allergy/AdvReac Type Severity Reaction Status Date / Time amoxicillin trihydrate Allergy Mild Verified 06/25/17 14:33 [From Augmentin] potassium clavulanate AdvReac Unknown Verified 06/25/17 14:33 [From Augmentin] - Home Medications Home Medications: Ambulatory Orders Apixaban [Eliquis -] 5 mg PO BID tablet 06/12/17 Bicalutamide [Casodex -] 50 mg PO DAILY tablet 06/12/17 Nicotine Patch [Nicoderm Patch -] 14 mg TD DAILY patch 06/12/17 Pantoprazole Sodium [Protonix -] 40 mg PO DAILY tab 06/12/17 Polyethylene Glycol 3350 [Miralax 119 gm Btl -] 17 gm PO DAILY bottle 06/12/17 Polyvinyl Alcohol [Artificial Tears] 1 drop OU BID PRN #0 ml 06/12/17 Acetaminophen [Tylenol] 650 mg PO QID PRN 06/25/17 Diltiazem HCl [Cardizem LA] 240 mg PO DAILY 06/25/17 Donepezil HCl [Aricept -] 10 mg PO DAILY tablet 07/17/17 Quetiapine Fumarate [Seroquel -] 25 mg PO HS tablet 07/17/17 Thiamine HCl [Vitamin B1 -] 100 mg PO HS tablet 07/17/17 Review of Systems - Review of Systems Constitutional: denies: Chills, Fever Cardiovascular: denies: Chest Pain, Palpitations, Shortness of Breath Respiratory: denies: Cough, Hemoptysis, Orthopnea, PND, SOB, SOB on Exertion Gastrointestinal: denies: Abdominal Pain, Constipation, Diarrhea, Melena, Nausea , Rectal Bleeding, Vomiting Musculoskeletal: denies: Joint Pain Neurological: denies: Dizziness, Headache, Seizure, Syncope Vital Signs: Vital Signs Temperature 97.9 F 08/22/17 05:52 Pulse Rate 70 08/22/17 05:52 Respiratory Rate 20 08/22/17 05:52 Blood Pressure 136/65 08/22/17 05:52 O2 Sat by Pulse Oximetry (%) 96 08/22/17 02:35 Respiratory: Yes: Diminished Gastrointestinal: Yes: Normal Bowel Sounds, Soft. No: Tenderness Cardiovascular: Yes: Pulse Irregular JVD: No Carotid Bruit: No PMI: Non-Displaced Heart Sounds: Yes: S1, S2 Edema: No - Other Data Labs, Other Data: CBC, BMP 08/22/17 06:00 INR, PTT INR 1.26 (0.82-1.09) H 08/21/17 17:30 Laboratory Results - last 24 hr 08/21/17 08/21/17 08/21/17 17:30 17:30 17:30 WBC 13.0 H RBC 3.72 L Hgb 11.4 L Hct 33.1 L MCV 88.8 MCH 30.6 MCHC 34.4 RDW 12.7 Plt Count 338 MPV 7.2 L Neutrophils % 77.4 Lymphocytes % 11.3 D Monocytes % 7.3 Eosinophils % 3.2 Basophils % 0.8 PT with INR 14.20 H INR 1.26 H Sodium 137 Potassium 4.9 Chloride 101 Carbon Dioxide 31 Anion Gap 5 L BUN 24 H Creatinine 1.9 H D Creat Clearance w eGFR 34.73 POC Glucometer Random Glucose 95 Calcium 8.8 Total Bilirubin 0.3 D AST 9 L D ALT 9 L D Alkaline Phosphatase 101 D Total Protein 6.2 L Albumin 2.9 L Urine Color Urine Appearance Urine pH Ur Specific [place] Urine Protein Urine Glucose (UA) Urine Ketones Urine Blood Urine Nitrite Urine Bilirubin Urine Urobilinogen Ur Leukocyte Esterase Urine RBC Urine WBC Blood Type Antibody Screen 08/21/17 08/22/17 08/22/17 19:20 03:00 06:00 WBC 10.4 H RBC 3.50 L Hgb 10.7 L Hct 31.2 L MCV 89.0 MCH 30.4 MCHC 34.2 RDW 12.6 Plt Count 262 D MPV 7.5 Neutrophils % 73.7 Lymphocytes % 13.6 D Monocytes % 7.8 Eosinophils % 4.0 Basophils % 0.9 PT with INR INR Sodium Potassium Chloride Carbon Dioxide Anion Gap BUN Creatinine Creat Clearance w eGFR POC Glucometer Random Glucose Calcium Total Bilirubin AST ALT Alkaline Phosphatase Total Protein Albumin Urine Color Yellow Urine Appearance Cloudy Urine pH 6.0 Ur Specific [place] 1.008 Urine Protein 1+ H D Urine Glucose (UA) Negative Urine Ketones Negative Urine Blood 3+ H Urine Nitrite Negative Urine Bilirubin Negative Urine Urobilinogen Negative Ur Leukocyte Esterase 3+ H Urine RBC 115 Urine WBC 475 Blood Type O POSITIVE Antibody Screen Negative Problem List - Problems (1) Atrial fibrillation Code(s): I48.91 - UNSPECIFIED ATRIAL FIBRILLATION Qualifiers: Atrial fibrillation type: persistent Qualified Code(s): I48.1 - Persistent atrial fibrillation (2) Hypercholesterolemia Code(s): E78.00 - PURE HYPERCHOLESTEROLEMIA, UNSPECIFIED (3) Hypothyroidism Code(s): E03.9 - HYPOTHYROIDISM, UNSPECIFIED Qualifiers: Hypothyroidism type: unspecified Qualified Code(s): E03.9 - Hypothyroidism , unspecified (4) Prostate cancer Code(s): C61 - MALIGNANT NEOPLASM OF PROSTATE (5) SILAS (acute kidney injury) Code(s): N17.9 - ACUTE KIDNEY FAILURE, UNSPECIFIED (6) CVA (cerebral infarction) Code(s): I63.9 - CEREBRAL INFARCTION, UNSPECIFIED Qualifiers: Cerebral infarction mechanism: unspecified mechanism Qualified Code(s): I63.9 - Cerebral infarction, unspecified (7) Diabetes Code(s): E11.9 - TYPE 2 DIABETES MELLITUS WITHOUT COMPLICATIONS Qualifiers: Diabetes mellitus type: type 2 Diabetes mellitus complication status: without complication (8) Diastolic CHF Code(s): I50.30 - UNSPECIFIED DIASTOLIC (CONGESTIVE) HEART FAILURE Qualifiers: Congestive heart failure chronicity: chronic Qualified Code(s): I50.32 - Chronic diastolic (congestive) heart failure (9) HTN (hypertension) Code(s): I10 - ESSENTIAL (PRIMARY) HYPERTENSION Qualifiers: Hypertension type: essential hypertension Qualified Code(s): I10 - Essential (primary) hypertension Assessment/Plan 1. Pre-operative evaluation prior to orchiectomy 2. Atrial fibrillation with variable ventricular response 3. Hypertension 4. Hypercholesterolemia 5. 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 Hypothyroidism 7. Prostate CA with obstructive nephropathy 8. Acute on chronic kidney disease 9. History of diverticulitis PLAN: 1. No absolute contraindication in proceeding with planned surgery in view of absence of ischemic symptoms, decompensated congestive heart failure or malignant arrhythmias. 2. Eliquis should be off 24-48 hours prior to surgery and then it should be restarted afterwards 3. Continue Cardizem as tolerated Further plans are to follow Han Nowak MD
--- NOTE | 2017-08-22 11:31 | HP ---
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: Alzheimer's, CVA, Dementia, Migraine, Multiple Sclerosis, Peripheral Neuropathy, Parkinson's, Seizure, Syncope, TIA, Vertigo, Other Cardiovascular: Yes: AFIB, Aneurysm, Aortic Insufficiency, Aortic Stenosis, CAD , CHF, Deep Vein Thrombosis, HTN, Hyperlipdemia, [place], Mitral Insufficiency, Mitral Stenosis, Murmur, Pulmonary Hypertension, Other Pulmonary: No: Asthma, Bronchitis, Cancer, COPD, O2 Dependent, Pneumonia, Previously Intubated, Pulmonary Embolus, Pulmonary Fibrosis, Sleep Apnea, Other Gastrointestinal: No: Ascites, Cancer, Constipation, Crohn's Disease, Diverticulitis, Diverticulosis, Esophageal Varices, Gastritis, GERD, GI Bleed, Hemorrhoids, Hiatal Hernia, Inflamatory Bowel Disease, Irritable Bowel Disease, Pancreatitis, Peptic Ulcer Disease, Ulcerative Colitis, Other Hepatobiliary: Yes: Cirrhosis, Cholelithiasis, Cholecystitis, Choledocholithiasis, Hepatitis A, Hepatitis B, Hepatitis C, Other Renal/: Yes: Renal Failure, Renal Inusuff, BPH, Cancer, Hematuria, Hemodialysis, Neurogenic Bladder, Renal Calculi, UTI, Other Endocrine: Yes: Diabetes Mellitus. 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 Travel: No Home Medications - Allergies Allergies/Adverse Reactions: Allergies Allergy/AdvReac Type Severity Reaction Status Date / Time amoxicillin trihydrate Allergy Mild Verified 06/25/17 14:33 [From Augmentin] potassium clavulanate AdvReac Unknown Verified 06/25/17 14:33 [From Augmentin] - Home Medications Home Medications: Ambulatory Orders Apixaban [Eliquis -] 5 mg PO BID tablet 06/12/17 Bicalutamide [Casodex -] 50 mg PO DAILY tablet 06/12/17 Nicotine Patch [Nicoderm Patch -] 14 mg TD DAILY patch 06/12/17 Pantoprazole Sodium [Protonix -] 40 mg PO DAILY tab 06/12/17 Polyethylene Glycol 3350 [Miralax 119 gm Btl -] 17 gm PO DAILY bottle 06/12/17 Polyvinyl Alcohol [Artificial Tears] 1 drop OU BID PRN #0 ml 06/12/17 Acetaminophen [Tylenol] 650 mg PO QID PRN 06/25/17 Diltiazem HCl [Cardizem LA] 240 mg PO DAILY 06/25/17 Donepezil HCl [Aricept -] 10 mg PO DAILY tablet 07/17/17 Quetiapine Fumarate [Seroquel -] 25 mg PO HS tablet 07/17/17 Thiamine HCl [Vitamin B1 -] 100 mg PO HS tablet 07/17/17 Physical Examination Vital Signs: Vital Signs Temperature 97.9 F 08/22/17 05:52 Pulse Rate 70 08/22/17 05:52 Respiratory Rate 20 08/22/17 05:52 Blood Pressure 136/65 08/22/17 05:52 O2 Sat by Pulse Oximetry (%) 96 08/22/17 02:35 Constitutional: Yes: Calm, Thin Cardiovascular: Yes: Pulse Irregular, S1, S2 Respiratory: Yes: CTA Bilaterally Gastrointestinal: Yes: Normal Bowel Sounds, Soft Extremities: Yes: Other (teds) Neurological: Yes: Alert, Oriented (to name) Labs: CBC, BMP 08/22/17 06:00 Assessment/Plan 1.prostate cancer urology consult to get bilateral orchiectomy npo tonight casodex cardio clearance 2.afib stop eliquis cardio for clearance cardizem lovenox 3/dementia aricept former smoker on nicotine patch 4. ckd RENAL TO SEE PATIENT
[2017-08-22] MEDS: BICALUTAMIDE 50 MG TABLET (FP) PO SCH (11:52)
[2017-08-22] MEDS: POTASSIUM CHLORIDE 10 MEQ in SODIUM CHLORIDE 0.45% 1,000 ML IVPB SCH ×2 (13:27→21:34)
--- NOTE | 2017-08-22 15:57 | CON.NEP ---
Consult Consult Specialty:: Nephrology Referred by:: Dr. Castro Reason for Consultation:: CKD/SILAS - History of Present Illness Chief Complaint: Admitted for Orihectomy History of Present Illness: This is a 77 year old with PMhx of of SILAS/CKD, Prostate Ca, Testicular tumor, Afib on A/c, DM, Hypertension, COPD who was admitted from [place] for Orihectomy. 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: Alzheimer's, CVA, Dementia, Migraine, Multiple Sclerosis, Peripheral Neuropathy, Parkinson's, Seizure, Syncope, TIA, Vertigo, Other Cardio/Vascular: Yes: AFIB, CAD, HTN, Hyperlipdemia Pulmonary: No: Asthma, Bronchitis, Cancer, COPD, O2 Dependent, Pneumonia, Previously Intubated, Pulmonary Embolus, Pulmonary Fibrosis, Sleep Apnea, Other Gastrointestinal: No: Ascites, Cancer, Constipation, Crohn's Disease, Diverticulitis, Diverticulosis, Esophageal Varices, Gastritis, GERD, GI Bleed, Hemorrhoids, Hiatal Hernia, Inflamatory Bowel Disease, Irritable Bowel Disease, Pancreatitis, Peptic Ulcer Disease, Ulcerative Colitis, Other Hepatobiliary: Yes: Cirrhosis, Cholelithiasis, Cholecystitis, Choledocholithiasis, Hepatitis A, Hepatitis B, Hepatitis C, Other Renal/: Yes: Renal Failure, Renal Inusuff, BPH, Cancer, Hematuria, Hemodialysis, Neurogenic Bladder, Renal Calculi, UTI, Other Endocrine: Yes: Diabetes Mellitus - Alcohol/Substance Use Hx Alcohol Use: No (past) - Smoking History Smoking history: Former smoker Have you smoked in the past 12 months: Yes Aproximately how many cigarettes per day: 20 - Social History Usual Living Arrangement: Snf ADL: Independent 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, 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 Travel: No Home Medications - Allergies Allergies/Adverse Reactions: Allergies Allergy/AdvReac Type Severity Reaction Status Date / Time amoxicillin trihydrate Allergy Mild Verified 06/25/17 14:33 [From Augmentin] potassium clavulanate AdvReac Unknown Verified 06/25/17 14:33 [From Augmentin] - Home Medications Home Medications: Ambulatory Orders Apixaban [Eliquis -] 5 mg PO BID tablet 06/12/17 Bicalutamide [Casodex -] 50 mg PO DAILY tablet 06/12/17 Nicotine Patch [Nicoderm Patch -] 14 mg TD DAILY patch 06/12/17 Pantoprazole Sodium [Protonix -] 40 mg PO DAILY tab 06/12/17 Polyethylene Glycol 3350 [Miralax 119 gm Btl -] 17 gm PO DAILY bottle 06/12/17 Polyvinyl Alcohol [Artificial Tears] 1 drop OU BID PRN #0 ml 06/12/17 Acetaminophen [Tylenol] 650 mg PO QID PRN 06/25/17 Diltiazem HCl [Cardizem LA] 240 mg PO DAILY 06/25/17 Donepezil HCl [Aricept -] 10 mg PO DAILY tablet 07/17/17 Quetiapine Fumarate [Seroquel -] 25 mg PO HS tablet 07/17/17 Thiamine HCl [Vitamin B1 -] 100 mg PO HS tablet 07/17/17 Review of Systems - Review of Systems Constitutional: reports: No Symptoms Eyes: reports: No Symptoms HENT: reports: No Symptoms Neck: reports: No Symptoms Cardiovascular: reports: No Symptoms Respiratory: reports: No Symptoms Gastrointestinal: reports: No Symptoms Genitourinary: reports: No Symptoms Musculoskeletal: reports: No Symptoms Integumentary: reports: No Symptoms Neurological: reports: No Symptoms Nephrology Consult - Height Height: 6 ft 4 in - Weight Weight: 202 lb 8 oz - BMI Body Mass Index (BMI): 24.6 - Lab Results CBC,BMP: CBC, BMP 08/22/17 06:00 08/22/17 10:30 Anion Gap: Anion Gap Anion Gap 10 (8-16) 08/22/17 10:30 - Imaging Chest X-ray: Report Reviewed - Physical Examination Vital Signs: Vital Signs Temperature 98.1 F 08/22/17 14:00 Pulse Rate 80 08/22/17 14:00 Respiratory Rate 18 08/22/17 14:00 Blood Pressure 154/65 08/22/17 14:00 O2 Sat by Pulse Oximetry (%) 96 08/22/17 02:35 Constitutional: Yes: Well Nourished, No Distress, Calm Eyes: Yes: Conjunctiva Clear HENT: Yes: Atraumatic, Normocephalic Neck: Yes: Supple Cardiovascular: Yes: Regular Rate and Rhythm Respiratory: Yes: Regular, CTA Bilaterally Gastrointestinal: Yes: Normal Bowel Sounds, Soft Renal/: No: Bladder Distention, CVA Tenderness - Left, CVA Tenderness - Right , [place] Present Edema: No Assessment/Plan 77 year old with PMhx of of SILAS/CKD, Prostate Ca, Testicular tumor, Afib on A/c , DM, Hypertension, COPD who was admitted from [place] for Orihectomy. #Hx of SILAS with CKD Renal function appears stable at this time no acidosis, hyperkalemia or uremia would continue to monitor renal function while inpatient IVF as needed when pt is NPO avoid nephrotoxins, IV contrast No renal contraindication to planned surgery. full consult to follow Donta Carmona DO
--- NOTE | 2017-08-22 16:34 | EKG ---
Test Reason : Blood Pressure : / mmHG Vent. Rate : 079 BPM Atrial Rate : 416 BPM P-R Int : 000 ms QRS Dur : 078 ms QT Int : 362 ms P-R-T Axes : 000 -11 040 degrees QTc Int : 415 ms ATRIAL FIBRILLATION LOW VOLTAGE QRS ABNORMAL ECG WHEN COMPARED WITH ECG OF 25-JUN-2017 14:33, NO SIGNIFICANT CHANGE WAS FOUND Confirmed by EDOUARD MCFADDEN MD ([id number]) on 08/22/2017 4:34:11 PM Referred By: Confirmed By:EDOUARD MCFADDEN MD
[2017-08-22] MEDS: QUEtiapine FUMARATE 25 MG TABLET (FP) PO SCH (21:34)
[2017-08-22] MEDS: THIAMINE HCL 100 MG TABLET (FP) PO SCH (21:34)
[2017-08-23] MEDS: ALBUTEROL SO4 0.083% IH SOL 2.5 MG/3 ML VIAL.NEB. NEB SCH ×4 (06:57→23:07)
[2017-08-23] MEDS: POTASSIUM CHLORIDE 10 MEQ in SODIUM CHLORIDE 0.45% 1,000 ML IVPB SCH (07:29)
[2017-08-23 08:28] LABS: BASOPHIL 0.8 % (0-2.0); EOSINOPHIL 3.8 % (0-4.5); MCH 30.1 pg (25.7-33.7); MCHC 34.1 g/dl (32.0-35.9); MEAN CELL VOLUME 88.5 fl (80-96); MEAN PLT VOLUME 7.4 fl (7.5-11.1); NEUTROPHILS 74.9 % (42.8-82.8); PLATELET COUNT 267 K/MM3 (134-434); RDW 12.9 % (11.9-15.9); WHITE BLOOD COUNT 10.4 K/mm3 (4.0-10.0)
[2017-08-23 08:46] LABS: ALBUMIN 2.7 g/dl (3.4-5.0); ANION GAP 6 (8-16); BILIRUBIN,TOTAL 0.6 mg/dL (0.2-1.0); CALCIUM 8.5 mg/dL (8.5-10.1); CO2 28 mmol/L (21-32); CREATININE 1.7 mg/dL (0.7-1.3); GLUCOSE,RANDOM 91 mg/dL (74-106); SGOT/AST 5 U/L (15-37); SGPT/ALT 9 U/L (12-78); TOT PROT 5.7 g/dl (6.4-8.2)
[2017-08-23 08:47] LABS: ALK PHOS 93 U/L (45-117)
[2017-08-23] MEDS: POLYETHYLENE GLYCOL 3350 119 GM BTL PO SCH (09:37)
[2017-08-23] MEDS: PANTOPRAZOLE 40 MG TABLET (FP) PO SCH (09:37)
[2017-08-23] MEDS: BICALUTAMIDE 50 MG TABLET (FP) PO SCH (09:37)
[2017-08-23] MEDS: NICOTINE 14 MG/24 HOURS TOPICAL PATCH TD SCH (09:37)
[2017-08-23] MEDS: DONEPEZIL HCL 10 MG TABLET (FP) PO SCH (09:37)
--- NOTE | 2017-08-23 10:56 | PN ---
Progress Note, Physician Chief Complaint: patient is nPO for OR today AC is held awake alert awaiting to go to surgery - Current Medication List Current Medications: Active Medications Acetaminophen (Tylenol -) 650 mg PO QID PRN PRN Reason: PAIN Albuterol Sulfate (Ventolin 0.083% Nebulizer Soln -) 1 amp NEB QIDR [facility] Last Admin: 08/23/17 06:57 Dose: 1 amp Artificial Tears (Artificial Tears) 1 drop OU BID PRN PRN Reason: DRY EYES Bicalutamide (Casodex -) 50 mg PO DAILY [facility] Last Admin: 08/23/17 09:37 Dose: Not Given Diltiazem HCl (Cardizem Cd -) 240 mg PO DAILY [facility] Last Admin: 08/23/17 09:47 Dose: 240 mg Donepezil HCl (Aricept -) 10 mg PO DAILY [facility] Last Admin: 08/23/17 09:37 Dose: Not Given Potassium Chloride 10 meq/ (Sodium Chloride) 1,005 mls @ 75 mls/hr IVPB Q13H [facility] Last Admin: 08/23/17 07:29 Dose: 75 mls/hr Nicotine (Nicoderm Patch -) 14 mg TD DAILY [facility] Last Admin: 08/23/17 09:37 Dose: Not Given Pantoprazole Sodium (Protonix -) 40 mg PO DAILY [facility] Last Admin: 08/23/17 09:37 Dose: Not Given Polyethylene Glycol (Miralax (For Daily Use) -) 17 gm PO DAILY [facility] Last Admin: 08/23/17 09:37 Dose: Not Given Quetiapine Fumarate (Seroquel -) 25 mg PO HS [facility] Last Admin: 08/22/17 21:34 Dose: 25 mg Thiamine HCl (Vitamin B1 -) 100 mg PO HS [facility] Last Admin: 08/22/17 21:34 Dose: 100 mg - Objective Vital Signs: Vital Signs Temperature 97.4 F L 08/23/17 09:00 Pulse Rate 67 08/23/17 09:00 Respiratory Rate 18 08/23/17 09:00 Blood Pressure 133/68 08/23/17 09:00 O2 Sat by Pulse Oximetry (%) 96 08/22/17 02:35 Constitutional: Yes: Calm Cardiovascular: Yes: Regular Rate and Rhythm, S1, S2 Respiratory: Yes: CTA Bilaterally Gastrointestinal: Yes: Normal Bowel Sounds, Soft Edema: No Neurological: Yes: Alert, Oriented (to name) Labs: CBC, BMP 08/23/17 07:00 08/23/17 07:00 INR, PTT INR 1.26 (0.82-1.09) H 08/21/17 17:30 Problem List - Problems (1) Atrial fibrillation Assessment/Plan: seeen by cardiology rate control AC on hold for surgery Code(s): I48.91 - UNSPECIFIED ATRIAL FIBRILLATION Qualifiers: Atrial fibrillation type: persistent Qualified Code(s): I48.1 - Persistent atrial fibrillation (2) Prostate cancer Assessment/Plan: cadodex to get bilateral orchiectomy today by urology Code(s): C61 - MALIGNANT NEOPLASM OF PROSTATE
[2017-08-23] MEDS ORDERED: DEXTROSE 5%-0.45% SALINE 1,000 ML IV SCH (11:00)
[2017-08-23] MEDS ORDERED: ONDANSETRON 4 MG/2 ML VIAL IVPUSH PRN ×2 (11:39→13:34)
[2017-08-23] MEDS ORDERED: HYDROmorphone HCL CARPU-JECT 1 MG/1 ML DISP.SYRIN IVPUSH PRN ×2 (11:39→13:34)
[2017-08-23] MEDS ORDERED: oxyCODONE HCL 5 MG TABLET PO PRN ×4 (11:39→13:34)
[2017-08-23] MEDS ORDERED: BUPIVACAINE HCL/PF 0.25% (2.5MG/ML) 10 ML VIAL ONE (11:44)
[2017-08-23] MEDS ORDERED: LIDOCAINE HCL 1%, 10 MG/ML (20ML VIAL) ONE (11:44)
[2017-08-23] MEDS ORDERED: BUPIVACAINE HCL/PF 0.5% (5MG/ML) 10 ML VIAL ONE (11:45)
[2017-08-23] MEDS ORDERED: fentaNYL CITRATE 250 MCG/5 ML VIAL ONE (12:06)
[2017-08-23] MEDS ORDERED: LIDOCAINE HCL/PF 2% SDV 5ML VIAL ONE (12:07)
[2017-08-23] MEDS ORDERED: PROPOFOL 20 ML ONE ×2 (12:07)
[2017-08-23] MEDS ORDERED: ceFAZolin SODIUM 1 GM VIAL IVPB ONE (12:10)
[2017-08-23] MEDS ORDERED: DEXAMETHASONE SOD PHOSPHATE 4 MG/1 ML VIAL ONE (12:36)
[2017-08-23] MEDS ORDERED: ARTIFICIAL TEARS (POLYVINYL ALCOHOL 1.4%) OPTH DROPS OU PRN (13:34)
[2017-08-23] MEDS ORDERED: ACETAMINOPHEN 325 MG TABLET (FP) PO PRN (13:34)
--- NOTE | 2017-08-23 14:37 | PN ---
Progress Note (short form) - Note Progress Note: Renal Follow up for CKD Pt seen and examined in the hallway for OR today no acute complaints NPO making urine w/o dutton Vital Signs Temperature 98 F 08/23/17 14:27 Pulse Rate 76 08/23/17 14:27 Respiratory Rate 16 08/23/17 14:27 Blood Pressure 137/66 08/23/17 14:27 O2 Sat by Pulse Oximetry (%) 100 08/23/17 14:27 Intake & Output 08/20/17 08/21/17 08/22/17 08/23/17 23:59 23:59 23:59 23:59 Intake Total 1750 1600 Output Total 10 Balance 1750 1590 Weight 215 lb 202 lb 8 oz NAD awake and alert RRR soft NT/ND No LE edema CBC, BMP 08/23/17 07:00 08/23/17 07:00 Current Medications Acetaminophen (Tylenol -) 650 mg PO Q6H PRN PRN Reason: PAIN Albuterol Sulfate (Ventolin 0.083% Nebulizer Soln -) 1 amp NEB QIDR [facility] Artificial Tears (Artificial Tears) 1 drop OU BID PRN PRN Reason: DRY EYES Bicalutamide (Casodex -) 50 mg PO DAILY [facility] Diltiazem HCl (Cardizem Cd -) 240 mg PO DAILY [facility] Donepezil HCl (Aricept -) 10 mg PO DAILY [facility] Fentanyl (Sublimaze Injection -) 25 mcg IVPUSH [id number] PRN PRN Reason: PAIN Fentanyl (Sublimaze Injection -) 50 mcg IVPUSH [id number] PRN PRN Reason: PAIN Hydromorphone HCl (Dilaudid Injection -) 0.5 mg IVPUSH [id number] PRN PRN Reason: PAIN Dextrose/Sodium Chloride (D5-1/2ns -) 1,000 mls @ 75 mls/hr IV ASDIR [facility] Potassium Chloride 10 meq/ (Sodium Chloride) 1,005 mls @ 75 mls/hr IVPB Q13H [facility] Nicotine (Nicoderm Patch -) 14 mg TD DAILY [facility] Ondansetron HCl (Zofran Injection) 4 mg IVPUSH Q6H PRN PRN Reason: NAUSEA AND/OR VOMITING Oxycodone HCl (Roxicodone -) 10 mg PO Q4H PRN PRN Reason: SEVERE PAIN Stop: 08/24/17 11:38 Oxycodone HCl (Roxicodone -) 5 mg PO Q4H PRN PRN Reason: MILD PAIN Stop: 08/24/17 11:38 Pantoprazole Sodium (Protonix -) 40 mg PO DAILY [facility] Polyethylene Glycol (Miralax (For Daily Use) -) 17 gm PO DAILY [facility] Quetiapine Fumarate (Seroquel -) 25 mg PO HS [facility] Thiamine HCl (Vitamin B1 -) 100 mg PO HS [facility] 77 year old with PMhx of of SILAS/CKD, Prostate Ca, Testicular tumor, Afib on A/c , DM, Hypertension, COPD who was admitted from [place] for Orihectomy. #Hx of SILAS now with CKD Renal function stable on some IVF with KCl as pt is npo for surgery Trend BMP, and electrolytes while pt is inpatient No renal contraindication to planned surgery. no JULIET or ARB, bp is at goal Donta Carmona DO
--- NOTE | 2017-08-23 16:52 | PN ---
Progress Note, Physician History of Present Illness: Patient was seen by us during his last admission. Now electively admitted for orchiectomy. Briefly, is a 76 yr old man with dementia, prostate cancer on casodex , AMS, afib on ac, had bilateral hydronephrosis and obstructive uropathy. Pt on casodex, not on leupron as not given in NH. In -06/[address] c/a/p and bone scan which did not reveal any metastatic disease ( avilable info in [facility]). Was seen by . He is now admitted for orchiectomy for total androgen ablation. Last admission was s/p TUVP, ureteral stent for obstructive uropathy He is seen and examined. He says he feels a bit sore, but no pain, otherwise he feels comfortable. He says he is going to his daughters house next week which is "[place]" from here.. - Current Medication List Current Medications: Active Medications Acetaminophen (Tylenol -) 650 mg PO Q6H PRN PRN Reason: PAIN Albuterol Sulfate (Ventolin 0.083% Nebulizer Soln -) 1 amp NEB QIDR [facility] Artificial Tears (Artificial Tears) 1 drop OU BID PRN PRN Reason: DRY EYES Bicalutamide (Casodex -) 50 mg PO DAILY [facility] Diltiazem HCl (Cardizem Cd -) 240 mg PO DAILY [facility] Donepezil HCl (Aricept -) 10 mg PO DAILY [facility] Fentanyl (Sublimaze Injection -) 25 mcg IVPUSH [id number] PRN PRN Reason: PAIN Fentanyl (Sublimaze Injection -) 50 mcg IVPUSH [id number] PRN PRN Reason: PAIN Hydromorphone HCl (Dilaudid Injection -) 0.5 mg IVPUSH [id number] PRN PRN Reason: PAIN Dextrose/Sodium Chloride (D5-1/2ns -) 1,000 mls @ 75 mls/hr IV ASDIR [facility] Potassium Chloride 10 meq/ (Sodium Chloride) 1,005 mls @ 75 mls/hr IVPB Q13H [facility] Nicotine (Nicoderm Patch -) 14 mg TD DAILY [facility] Ondansetron HCl (Zofran Injection) 4 mg IVPUSH Q6H PRN PRN Reason: NAUSEA AND/OR VOMITING Oxycodone HCl (Roxicodone -) 10 mg PO Q4H PRN PRN Reason: SEVERE PAIN Stop: 08/24/17 11:38 Oxycodone HCl (Roxicodone -) 5 mg PO Q4H PRN PRN Reason: MILD PAIN Stop: 08/24/17 11:38 Pantoprazole Sodium (Protonix -) 40 mg PO DAILY [facility] Polyethylene Glycol (Miralax (For Daily Use) -) 17 gm PO DAILY [facility] Quetiapine Fumarate (Seroquel -) 25 mg PO HS [facility] Thiamine HCl (Vitamin B1 -) 100 mg PO HS [facility] - Objective Vital Signs: Vital Signs Temperature 97.7 F 08/23/17 15:00 Pulse Rate 72 08/23/17 15:00 Respiratory Rate 20 08/23/17 15:00 Blood Pressure 132/74 08/23/17 15:00 O2 Sat by Pulse Oximetry (%) 100 08/23/17 14:27 Constitutional: Yes: Well Nourished, No Distress, Calm HENT: Yes: Atraumatic, Normocephalic Neck: Yes: Supple Cardiovascular: Yes: Regular Rate and Rhythm Respiratory: Yes: Regular Gastrointestinal: Yes: Normal Bowel Sounds, Soft Labs: CBC, BMP 08/23/17 07:00 08/23/17 07:00 INR, PTT INR 1.26 (0.82-1.09) H 08/21/17 17:30 Problem List - Problems (1) Prostate cancer Code(s): C61 - MALIGNANT NEOPLASM OF PROSTATE (2) Status post orchiectomy Code(s): Z90.79 - ACQUIRED ABSENCE OF OTHER GENITAL ORGAN(S) (3) Chronic kidney disease (CKD) Code(s): N18.9 - CHRONIC KIDNEY DISEASE, UNSPECIFIED Qualifiers: Chronic kidney disease stage: stage 3 (moderate) Qualified Code(s): N18.3 - Chronic kidney disease, stage 3 (moderate) (4) Atrial fibrillation Code(s): I48.91 - UNSPECIFIED ATRIAL FIBRILLATION Qualifiers: Atrial fibrillation type: persistent Qualified Code(s): I48.1 - Persistent atrial fibrillation Assessment/Plan On casodex Unable to get Leurpon presently s/p orchiectomy for androgen ablation. repeat PSA f.u on eliquis for afib
--- NOTE | 2017-08-23 18:05 | PN ---
Progress Note, Physician History of Present Illness: S/p orchiectomy, pain adequately controlled. - Current Medication List Current Medications: Active Medications Acetaminophen (Tylenol -) 650 mg PO Q6H PRN PRN Reason: PAIN Albuterol Sulfate (Ventolin 0.083% Nebulizer Soln -) 1 amp NEB QIDR [facility] Artificial Tears (Artificial Tears) 1 drop OU BID PRN PRN Reason: DRY EYES Bicalutamide (Casodex -) 50 mg PO DAILY [facility] Diltiazem HCl (Cardizem Cd -) 240 mg PO DAILY [facility] Donepezil HCl (Aricept -) 10 mg PO DAILY [facility] Fentanyl (Sublimaze Injection -) 25 mcg IVPUSH [id number] PRN PRN Reason: PAIN Fentanyl (Sublimaze Injection -) 50 mcg IVPUSH [id number] PRN PRN Reason: PAIN Hydromorphone HCl (Dilaudid Injection -) 0.5 mg IVPUSH [id number] PRN PRN Reason: PAIN Dextrose/Sodium Chloride (D5-1/2ns -) 1,000 mls @ 75 mls/hr IV ASDIR [facility] Potassium Chloride 10 meq/ (Sodium Chloride) 1,005 mls @ 75 mls/hr IVPB Q13H [facility] Nicotine (Nicoderm Patch -) 14 mg TD DAILY [facility] Ondansetron HCl (Zofran Injection) 4 mg IVPUSH Q6H PRN PRN Reason: NAUSEA AND/OR VOMITING Oxycodone HCl (Roxicodone -) 10 mg PO Q4H PRN PRN Reason: SEVERE PAIN Stop: 08/24/17 11:38 Oxycodone HCl (Roxicodone -) 5 mg PO Q4H PRN PRN Reason: MILD PAIN Stop: 08/24/17 11:38 Pantoprazole Sodium (Protonix -) 40 mg PO DAILY [facility] Polyethylene Glycol (Miralax (For Daily Use) -) 17 gm PO DAILY [facility] Quetiapine Fumarate (Seroquel -) 25 mg PO HS [facility] Thiamine HCl (Vitamin B1 -) 100 mg PO HS [facility] - Objective Vital Signs: Vital Signs Temperature 97.7 F 08/23/17 15:00 Pulse Rate 72 08/23/17 15:00 Respiratory Rate 20 08/23/17 15:00 Blood Pressure 132/74 08/23/17 15:00 O2 Sat by Pulse Oximetry (%) 100 08/23/17 14:27 Constitutional: Yes: No Distress, Calm Neck: Yes: Supple Cardiovascular: Yes: Pulse Irregular Respiratory: Yes: Regular, Diminished Gastrointestinal: Yes: Normal Bowel Sounds, Soft Edema: No Labs: CBC, BMP 08/23/17 07:00 08/23/17 07:00 INR, PTT INR 1.26 (0.82-1.09) H 08/21/17 17:30 Problem List - Problems (1) Status post orchiectomy Code(s): Z90.79 - ACQUIRED ABSENCE OF OTHER GENITAL ORGAN(S) (2) Chronic kidney disease (CKD) Code(s): N18.9 - CHRONIC KIDNEY DISEASE, UNSPECIFIED Qualifiers: Chronic kidney disease stage: stage 3 (moderate) Qualified Code(s): N18.3 - Chronic kidney disease, stage 3 (moderate) (3) Atrial fibrillation Code(s): I48.91 - UNSPECIFIED ATRIAL FIBRILLATION Qualifiers: Atrial fibrillation type: persistent Qualified Code(s): I48.1 - Persistent atrial fibrillation (4) Hypercholesterolemia Code(s): E78.00 - PURE HYPERCHOLESTEROLEMIA, UNSPECIFIED (5) Hypothyroidism Code(s): E03.9 - HYPOTHYROIDISM, UNSPECIFIED Qualifiers: Hypothyroidism type: unspecified Qualified Code(s): E03.9 - Hypothyroidism , unspecified (6) Prostate cancer Code(s): C61 - MALIGNANT NEOPLASM OF PROSTATE (7) Hyperlipidemia associated with type 2 diabetes mellitus Code(s): E11.69 - TYPE 2 DIABETES MELLITUS WITH OTHER SPECIFIED COMPLICATION; E78.5 - HYPERLIPIDEMIA, UNSPECIFIED (8) HTN (hypertension) Code(s): I10 - ESSENTIAL (PRIMARY) HYPERTENSION Qualifiers: Hypertension type: essential hypertension Qualified Code(s): I10 - Essential (primary) hypertension Assessment/Plan 1. POD#0 orchiectomy stable CV handy 2. Atrial fibrillation with variable ventricular response 3. Hypertension 4. Hypercholesterolemia 5. 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 Hypothyroidism 7. Prostate CA with obstructive nephropathy 8. Acute on chronic kidney disease 9. History of diverticulitis PLAN: 1. Resume Eliquis once hemostasis assured per 2. Continue Cardizem 240 qd, analgesia as needed
--- NOTE | 2017-08-23 18:07 | CONS ---
DATE OF CONSULTATION: 08/23/2017 HISTORY OF PRESENT ILLNESS: Patient is a 77-year-old male well known to me from past history. He is presently a [facility], has history of metastatic prostate cancer with bilateral hydroureteral nephrosis. Patient also has history of dementia, atrial fibrillation, acute kidney failure, diabetes, hypertension, COPD. He is admitted to the hospital for bilateral orchiectomy, so patient can undergo total androgen ablation which will slow down his metastatic prostate cancer symptoms and growth. Patient has been bridged on Lovenox, stopped Eliquis several days ago, will not give a.m. dose of Lovenox prior to surgery. Patient is a former smoker. He does have history of prostatism including frequency, urgency, urgency incontinence, and nocturia. He is allergic to AMOXICILLIN. He is on multiple medications including Eliquis, Casodex, Protonix, Miralax, artificial tears, Cardizem, Aricept, Seroquel, and multiple vitamins. His temperature on admission was 97.9, blood pressure 136/65, O2 saturation was 96. Patient's white count was 10,400, hemoglobin and hematocrit was 10.7 over 31.2, platelets were 262. Physical examination revealed a healthy elderly male who is confused but does answer some questions. He is unaware of the extent of his disease due to the lack of Lupron at the healthcare facility, the daughter who is his healthcare proxy decided that the patient undergo a surgical castration, therefore this is the plan for the morning if patient is medically cleared. His urine cultures were negative. His last BUN and creatinine were 23/1.7, random glucose was 91. A urinalysis revealed heme positive blood in the urine, nitrate negative, pH of 6. Physical exam reveals bilateral CVA tenderness. Testes are atrophic. No hernias or hydroceles are seen. Phallus is normal. Meatus is adequate. Prostate is 3+ firm and nontender. Rectal tone poor. Had a serum PSA in the past several months which was greater than 200. 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 IMPRESSION: Metastatic prostate cancer. Will need total androgen ablation including bicalutamide, i.e. Casodex 50 mg daily and bilateral scrotal orchiectomies. Maurilio [id number]
--- NOTE | 2017-08-23 18:33 | OP ---
DATE OF OPERATION: 08/23/2017 PREOPERATIVE DIAGNOSIS: Metastatic prostate cancer, bilateral hydroureteral nephrosis, elevated prostate specific antigen. POSTOPERATIVE DIAGNOSIS: Metastatic prostate cancer, bilateral hydroureteral nephrosis, elevated prostate specific antigen. OPERATIVE PROCEDURE: Bilateral scrotal orchiectomies. ANESTHESIA: General. DESCRIPTION OF PROCEDURE: Under above stated anesthesia, patient is prepped and draped in the usual sterile manner. He is placed in the supine position. A midline vertical incision was made into the scrotum. This was carried down through skin and subcutaneous tissue. The right testicle was approached, and the was opened. The testes as well as the cords were isolated. The vas deferens and fascia were clamped and ligated separately. The vessels were clamped and suture ligated with 0 silk and tied with 2-0 chromic. The right testicle was removed. No active bleeding was noted. Same thing was done to the contralateral side. The wound was irrigated. No active bleeding was noted. A 1/4-inch [place] was left in the scrotal sac and brought out a separate stab wound incision. The scrotum was closed in 2 layers of 3-0 Vicryl suture ligatures, and 3-0 chromic mattress sutures. A pressure dressing is applied. Patient tolerated procedure well. He returned to the recovery room in good condition. Maurilio [id number]
[2017-08-23] MEDS: DEXTROSE 5%-0.45% SALINE 1,000 ML IV SCH (20:22)
[2017-08-23] MEDS: QUEtiapine FUMARATE 25 MG TABLET (FP) PO SCH (21:12)
[2017-08-23] MEDS: THIAMINE HCL 100 MG TABLET (FP) PO SCH (21:12)
[2017-08-24] MEDS ORDERED: POTASSIUM CHLORIDE 10 MEQ in SODIUM CHLORIDE 0.45% 1,000 ML IVPB SCH
[2017-08-24] MEDS: ALBUTEROL SO4 0.083% IH SOL 2.5 MG/3 ML VIAL.NEB. NEB SCH ×3 (06:31→18:26)
[2017-08-24 08:29] LABS: BASOPHIL 0.2 % (0-2.0); MCH 30.1 pg (25.7-33.7); MCHC 33.6 g/dl (32.0-35.9); MEAN CELL VOLUME 89.5 fl (80-96); MEAN PLT VOLUME 7.6 fl (7.5-11.1); NEUTROPHILS 86.8 % (42.8-82.8); PLATELET COUNT 281 K/MM3 (134-434); RDW 12.8 % (11.9-15.9); WHITE BLOOD COUNT 11.9 K/mm3 (4.0-10.0)
[2017-08-24 09:01] LABS: ALBUMIN 2.7 g/dl (3.4-5.0); ALK PHOS 91 U/L (45-117); ANION GAP 11 (8-16); BILIRUBIN,TOTAL 0.3 mg/dL (0.2-1.0); CALCIUM 8.7 mg/dL (8.5-10.1); CO2 25 mmol/L (21-32); CREATININE 1.6 mg/dL (0.7-1.3); GLUCOSE,RANDOM 134 mg/dL (74-106); SGPT/ALT 8 U/L (12-78); TOT PROT 6.1 g/dl (6.4-8.2)
[2017-08-24 09:04] LABS: SGOT/AST 4 U/L (15-37)
[2017-08-24] MEDS ORDERED: PT OWN MED DRAWER 7, Y5N ONE (09:50)
[2017-08-24] MEDS: PANTOPRAZOLE 40 MG TABLET (FP) PO SCH (09:52)
[2017-08-24] MEDS: NICOTINE 14 MG/24 HOURS TOPICAL PATCH TD SCH (09:52)
[2017-08-24] MEDS: POLYETHYLENE GLYCOL 3350 119 GM BTL PO SCH (09:52)
[2017-08-24] MEDS: DONEPEZIL HCL 10 MG TABLET (FP) PO SCH (09:52)
[2017-08-24] MEDS: BICALUTAMIDE 50 MG TABLET (FP) PO SCH (09:52)
--- NOTE | 2017-08-24 16:04 | PN ---
Progress Note (short form) - Note Progress Note: Chief Complaint: Events noted, notes reviewed. awake and alert, denies any chest pain or dyspnea History of Present Illness: Seen and examined. Events noted, notes reviewed. awake and alert, denies any chest pain or dyspnea Echocardiography dated 05/20/17 revealed normal LV size and systolic function with no significant valvular pathology - Current Medication List Current Medications Acetaminophen (Tylenol -) 650 mg PO Q6H PRN PRN Reason: PAIN Albuterol Sulfate (Ventolin 0.083% Nebulizer Soln -) 1 amp NEB QIDR [facility] Last Admin: 08/24/17 11:15 Dose: 1 amp Artificial Tears (Artificial Tears) 1 drop OU BID PRN PRN Reason: DRY EYES Bicalutamide (Casodex -) 50 mg PO DAILY [facility] Last Admin: 08/24/17 09:52 Dose: 50 mg Diltiazem HCl (Cardizem Cd -) 240 mg PO DAILY [facility] Last Admin: 08/24/17 09:52 Dose: 240 mg Donepezil HCl (Aricept -) 10 mg PO DAILY [facility] Last Admin: 08/24/17 09:52 Dose: 10 mg Fentanyl (Sublimaze Injection -) 25 mcg IVPUSH [id number] PRN PRN Reason: PAIN Fentanyl (Sublimaze Injection -) 50 mcg IVPUSH [id number] PRN PRN Reason: PAIN Hydromorphone HCl (Dilaudid Injection -) 0.5 mg IVPUSH [id number] PRN PRN Reason: PAIN Dextrose/Sodium Chloride (D5-1/2ns -) 1,000 mls @ 75 mls/hr IV ASDIR [facility] Last Admin: 08/23/17 20:22 Dose: 75 mls/hr Nicotine (Nicoderm Patch -) 14 mg TD DAILY [facility] Last Admin: 08/24/17 09:52 Dose: 14 mg Ondansetron HCl (Zofran Injection) 4 mg IVPUSH Q6H PRN PRN Reason: NAUSEA AND/OR VOMITING Pantoprazole Sodium (Protonix -) 40 mg PO DAILY [facility] Last Admin: 08/24/17 09:52 Dose: 40 mg Polyethylene Glycol (Miralax (For Daily Use) -) 17 gm PO DAILY [facility] Last Admin: 08/24/17 09:52 Dose: 17 gm Quetiapine Fumarate (Seroquel -) 25 mg PO HS [facility] Last Admin: 08/23/17 21:12 Dose: 25 mg Thiamine HCl (Vitamin B1 -) 100 mg PO HS [facility] Last Admin: 08/23/17 21:12 Dose: 100 mg - Objective Vital Signs: Last Vital Signs Temp Pulse Resp BP Pulse Ox 97.4 F L 87 18 121/68 100 08/24/17 14:08 08/24/17 14:08 08/24/17 14:08 08/24/17 14:08 08/23/17 14:27 Intake & Output 08/21/17 08/22/17 08/23/17 08/24/17 23:59 23:59 23:59 23:59 Intake Total 1750 1900 750 Output Total 1110 650 Balance 1750 790 100 Weight 215 lb 202 lb 8 oz Neck: Supple Negative JVD No Bruit Cardiovascular: S1 S2 Irregularly Irregular No Murmurs, Clicks or Gallops Respiratory: Diminished Breath sounds at the Bases Gastrointestinal: Soft Benign Normal Bowel Sounds Ext: No Edema Labs: CBC, BMP 08/24/17 07:00 08/24/17 07:00 Assessment/Plan ASSESSMENT: 1. POD#1 orchiectomy 2. CAD angina pectoris, stable 3. Diastolic LV dysfunction with class 0-I NYHA classification LV congestive heart failure, compensated/euvolemic 4. Permanent atrial fibrillation on chronic A/C with NOAC's/Eliquis, therapy currently on hold 5. HTN 6. DM 7. Hypothyroidism. 8. COPD/emphysema 9. CKD 10. Prostate carcinoma history with obstructive uropathy 11. Anemia PLAN: 1. Continue Cardizem CD 2. Resume Eliquis with close monitoring of CBC once cleared surgically 3. Consider initiation of ACEI or ARBS with close monitoring of renal function unless it is absolutely contraindicated 4. Ambulate and discharge as per the primary team Caro Ordoñez MD
--- NOTE | 2017-08-24 17:56 | PN ---
Progress Note, Physician Chief Complaint: Orchiectomy History of Present Illness: NAD Post op orchiectomy slight discomfort - Current Medication List Current Medications: Active Medications Acetaminophen (Tylenol -) 650 mg PO Q6H PRN PRN Reason: PAIN Albuterol Sulfate (Ventolin 0.083% Nebulizer Soln -) 1 amp NEB QIDR [facility] Last Admin: 08/24/17 11:15 Dose: 1 amp Artificial Tears (Artificial Tears) 1 drop OU BID PRN PRN Reason: DRY EYES Bicalutamide (Casodex -) 50 mg PO DAILY [facility] Last Admin: 08/24/17 09:52 Dose: 50 mg Diltiazem HCl (Cardizem Cd -) 240 mg PO DAILY [facility] Last Admin: 08/24/17 09:52 Dose: 240 mg Donepezil HCl (Aricept -) 10 mg PO DAILY [facility] Last Admin: 08/24/17 09:52 Dose: 10 mg Fentanyl (Sublimaze Injection -) 25 mcg IVPUSH [id number] PRN PRN Reason: PAIN Fentanyl (Sublimaze Injection -) 50 mcg IVPUSH [id number] PRN PRN Reason: PAIN Hydromorphone HCl (Dilaudid Injection -) 0.5 mg IVPUSH [id number] PRN PRN Reason: PAIN Dextrose/Sodium Chloride (D5-1/2ns -) 1,000 mls @ 75 mls/hr IV ASDIR [facility] Last Admin: 08/23/17 20:22 Dose: 75 mls/hr Nicotine (Nicoderm Patch -) 14 mg TD DAILY [facility] Last Admin: 08/24/17 09:52 Dose: 14 mg Ondansetron HCl (Zofran Injection) 4 mg IVPUSH Q6H PRN PRN Reason: NAUSEA AND/OR VOMITING Pantoprazole Sodium (Protonix -) 40 mg PO DAILY [facility] Last Admin: 08/24/17 09:52 Dose: 40 mg Polyethylene Glycol (Miralax (For Daily Use) -) 17 gm PO DAILY [facility] Last Admin: 08/24/17 09:52 Dose: 17 gm Quetiapine Fumarate (Seroquel -) 25 mg PO HS [facility] Last Admin: 08/23/17 21:12 Dose: 25 mg Thiamine HCl (Vitamin B1 -) 100 mg PO HS [facility] Last Admin: 08/23/17 21:12 Dose: 100 mg - Objective Vital Signs: Vital Signs Temperature 97.4 F L 08/24/17 14:08 Pulse Rate 87 08/24/17 14:08 Respiratory Rate 18 08/24/17 14:08 Blood Pressure 121/68 08/24/17 14:08 O2 Sat by Pulse Oximetry (%) 100 08/23/17 14:27 Constitutional: Yes: Well Nourished, No Distress, Calm Cardiovascular: Yes: Regular Rate and Rhythm Respiratory: Yes: Regular Gastrointestinal: Yes: Normal Bowel Sounds Edema: No Peripheral Pulses WNL: Yes Neurological: Yes: Alert, Pre-Existing Deficit Psychiatric: Yes: Alert Labs: CBC, BMP 08/24/17 07:00 08/24/17 07:00 INR, PTT INR 1.26 (0.82-1.09) H 08/21/17 17:30 Problem List - Problems (1) Atrial fibrillation Assessment/Plan: -Chronic -restart AC -cardiology on board Code(s): I48.91 - UNSPECIFIED ATRIAL FIBRILLATION Qualifiers: Atrial fibrillation type: persistent Qualified Code(s): I48.1 - Persistent atrial fibrillation (2) Prostate cancer Assessment/Plan: -s/p orchiectomy for complete androgen ablation -casodex -oncology on board Code(s): C61 - MALIGNANT NEOPLASM OF PROSTATE (3) Status post orchiectomy Code(s): Z90.79 - ACQUIRED ABSENCE OF OTHER GENITAL ORGAN(S) Assessment/Plan see problem list
--- NOTE | 2017-08-24 19:11 | PN ---
Progress Note (short form) - Note Progress Note: CKD s/p obstructive uropathy prostate Ca s/p surgery Active Medications Acetaminophen (Tylenol -) 650 mg PO Q6H PRN PRN Reason: PAIN Albuterol Sulfate (Ventolin 0.083% Nebulizer Soln -) 1 amp NEB QIDR [facility] Last Admin: 08/24/17 18:26 Dose: 1 amp Apixaban (Eliquis -) 5 mg PO BID [facility] Artificial Tears (Artificial Tears) 1 drop OU BID PRN PRN Reason: DRY EYES Bicalutamide (Casodex -) 50 mg PO DAILY [facility] Last Admin: 08/24/17 09:52 Dose: 50 mg Diltiazem HCl (Cardizem Cd -) 240 mg PO DAILY [facility] Last Admin: 08/24/17 09:52 Dose: 240 mg Donepezil HCl (Aricept -) 10 mg PO DAILY [facility] Last Admin: 08/24/17 09:52 Dose: 10 mg Fentanyl (Sublimaze Injection -) 25 mcg IVPUSH [id number] PRN PRN Reason: PAIN Fentanyl (Sublimaze Injection -) 50 mcg IVPUSH [id number] PRN PRN Reason: PAIN Hydromorphone HCl (Dilaudid Injection -) 0.5 mg IVPUSH [id number] PRN PRN Reason: PAIN Dextrose/Sodium Chloride (D5-1/2ns -) 1,000 mls @ 75 mls/hr IV ASDIR [facility] Last Admin: 08/23/17 20:22 Dose: 75 mls/hr Nicotine (Nicoderm Patch -) 14 mg TD DAILY [facility] Last Admin: 08/24/17 09:52 Dose: 14 mg Ondansetron HCl (Zofran Injection) 4 mg IVPUSH Q6H PRN PRN Reason: NAUSEA AND/OR VOMITING Pantoprazole Sodium (Protonix -) 40 mg PO DAILY [facility] Last Admin: 08/24/17 09:52 Dose: 40 mg Polyethylene Glycol (Miralax (For Daily Use) -) 17 gm PO DAILY [facility] Last Admin: 08/24/17 09:52 Dose: 17 gm Quetiapine Fumarate (Seroquel -) 25 mg PO HS [facility] Last Admin: 08/23/17 21:12 Dose: 25 mg Thiamine HCl (Vitamin B1 -) 100 mg PO [facility] Last Admin: 08/23/17 21:12 Dose: 100 mg Last Vital Signs Temp Pulse Resp BP Pulse Ox 97.5 F L 87 18 122/67 100 08/24/17 19:01 08/24/17 19:01 08/24/17 19:01 08/24/17 19:01 08/23/17 14:27 Lungs clear Heart RRR Abd Soft Ext no edema CBC, BMP 08/24/17 07:00 08/24/17 07:00 Plan- decrease IVF rates encouraged to have more
[2017-08-24] MEDS: QUEtiapine FUMARATE 25 MG TABLET (FP) PO SCH (22:23)
[2017-08-24] MEDS: THIAMINE HCL 100 MG TABLET (FP) PO SCH (22:23)
[2017-08-24] MEDS: APIXABAN 5 MG TABLET PO SCH (22:24)
[2017-08-25] MEDS: ALBUTEROL SO4 0.083% IH SOL 2.5 MG/3 ML VIAL.NEB. NEB SCH ×5 (00:08→23:05)
[2017-08-25 08:06] LABS: TESTOSTERONE,TOTAL 7 ng/dL (264-916)
[2017-08-25] MEDS ORDERED: PT OWN MED DRAWER 7, Y5N ONE ×2 (09:01→21:49)
[2017-08-25] MEDS: POLYETHYLENE GLYCOL 3350 119 GM BTL PO SCH (09:04)
[2017-08-25] MEDS: NICOTINE 14 MG/24 HOURS TOPICAL PATCH TD SCH (09:05)
[2017-08-25] MEDS: BICALUTAMIDE 50 MG TABLET (FP) PO SCH (09:05)
[2017-08-25] MEDS: DONEPEZIL HCL 10 MG TABLET (FP) PO SCH (09:05)
[2017-08-25] MEDS: PANTOPRAZOLE 40 MG TABLET (FP) PO SCH (09:05)
[2017-08-25] MEDS: APIXABAN 5 MG TABLET PO SCH ×2 (09:05→21:50)
--- NOTE | 2017-08-25 13:27 | PN ---
Progress Note (short form) - Note Progress Note: Chief Complaint: Events noted, notes reviewed, denies any chest pain or dyspnea History of Present Illness: Seen and examined. Events noted, notes reviewed, denies any chest pain or dyspnea Echocardiography dated 05/20/17 revealed normal LV size and systolic function with no significant valvular pathology - Current Medication List Current Medications Acetaminophen (Tylenol -) 650 mg PO Q6H PRN PRN Reason: PAIN Albuterol Sulfate (Ventolin 0.083% Nebulizer Soln -) 1 amp NEB QIDR [facility] Last Admin: 08/25/17 11:40 Dose: 1 amp Apixaban (Eliquis -) 5 mg PO BID [facility] Last Admin: 08/25/17 09:05 Dose: 5 mg Artificial Tears (Artificial Tears) 1 drop OU BID PRN PRN Reason: DRY EYES Bicalutamide (Casodex -) 50 mg PO DAILY [facility] Last Admin: 08/25/17 09:05 Dose: 50 mg Diltiazem HCl (Cardizem Cd -) 240 mg PO DAILY [facility] Last Admin: 08/25/17 09:05 Dose: 240 mg Donepezil HCl (Aricept -) 10 mg PO DAILY [facility] Last Admin: 08/25/17 09:05 Dose: 10 mg Fentanyl (Sublimaze Injection -) 25 mcg IVPUSH [id number] PRN PRN Reason: PAIN Fentanyl (Sublimaze Injection -) 50 mcg IVPUSH [id number] PRN PRN Reason: PAIN Hydromorphone HCl (Dilaudid Injection -) 0.5 mg IVPUSH [id number] PRN PRN Reason: PAIN Dextrose/Sodium Chloride (D5-1/2ns -) 1,000 mls @ 75 mls/hr IV ASDIR [facility] Last Admin: 08/23/17 20:22 Dose: 75 mls/hr Nicotine (Nicoderm Patch -) 14 mg TD DAILY [facility] Last Admin: 08/25/17 09:05 Dose: 14 mg Ondansetron HCl (Zofran Injection) 4 mg IVPUSH Q6H PRN PRN Reason: NAUSEA AND/OR VOMITING Pantoprazole Sodium (Protonix -) 40 mg PO DAILY [facility] Last Admin: 08/25/17 09:05 Dose: 40 mg Polyethylene Glycol (Miralax (For Daily Use) -) 17 gm PO DAILY [facility] Last Admin: 08/25/17 09:04 Dose: 17 gm Quetiapine Fumarate (Seroquel -) 25 mg PO HS [facility] Last Admin: 08/24/17 22:23 Dose: 25 mg Thiamine HCl (Vitamin B1 -) 100 mg PO HS [facility] Last Admin: 08/24/17 22:23 Dose: 100 mg - Objective Vital Signs: Last Vital Signs Temp Pulse Resp BP Pulse Ox 97.2 F L 83 20 110/56 100 08/25/17 10:00 08/25/17 10:00 08/25/17 10:00 08/25/17 10:00 08/23/17 14:27 Intake & Output 08/22/17 08/23/17 08/24/17 08/25/17 23:59 23:59 23:59 23:59 Intake Total 1750 1900 1575 750 Output Total 1110 650 125 Balance 1750 790 925 625 Weight 202 lb 8 oz Neck: Supple Negative JVD No Bruit Cardiovascular: S1 S2 Irregularly Irregular No Murmurs, Clicks or Gallops Respiratory: Diminished Breath sounds at the Bases Gastrointestinal: Soft Benign Normal Bowel Sounds Ext: No Edema Labs: CBC, BMP 08/24/17 07:00 08/24/17 07:00 Assessment/Plan ASSESSMENT: 1. POD#2 orchiectomy 2. CAD angina pectoris, stable 3. Diastolic LV dysfunction with class 0-I NYHA classification LV congestive heart failure, compensated/euvolemic 4. Permanent atrial fibrillation on chronic A/C with NOAC's/Eliquis 5. HTN 6. DM 7. Hypothyroidism. 8. COPD/emphysema 9. CKD 10. Prostate carcinoma history with obstructive uropathy 11. Anemia PLAN: 1. Continue Cardizem CD 2. Continue Eliquis with close monitoring of CBC 3. Consider initiation of ACEI or ARBS with close monitoring of renal function unless it is absolutely contraindicated 4. Ambulate and discharge as per the primary team Caro Ordoñez MD
[2017-08-25] MEDS: DEXTROSE 5%-0.45% SALINE 1,000 ML IV SCH (17:41)
--- NOTE | 2017-08-25 21:21 | PN ---
Progress Note (short form) - Note Progress Note: CKD s/p obstructive uropathy prostate Ca s/p surgery Current Medications Acetaminophen (Tylenol -) 650 mg PO Q6H PRN PRN Reason: PAIN Albuterol Sulfate (Ventolin 0.083% Nebulizer Soln -) 1 amp NEB QIDR [facility] Last Admin: 08/25/17 17:45 Dose: 1 amp Apixaban (Eliquis -) 5 mg PO BID [facility] Last Admin: 08/25/17 09:05 Dose: 5 mg Artificial Tears (Artificial Tears) 1 drop OU BID PRN PRN Reason: DRY EYES Bicalutamide (Casodex -) 50 mg PO DAILY [facility] Last Admin: 08/25/17 09:05 Dose: 50 mg Diltiazem HCl (Cardizem Cd -) 240 mg PO DAILY [facility] Last Admin: 08/25/17 09:05 Dose: 240 mg Donepezil HCl (Aricept -) 10 mg PO DAILY [facility] Last Admin: 08/25/17 09:05 Dose: 10 mg Fentanyl (Sublimaze Injection -) 25 mcg IVPUSH [id number] PRN PRN Reason: PAIN Fentanyl (Sublimaze Injection -) 50 mcg IVPUSH [id number] PRN PRN Reason: PAIN Hydromorphone HCl (Dilaudid Injection -) 0.5 mg IVPUSH [id number] PRN PRN Reason: PAIN Dextrose/Sodium Chloride (D5-1/2ns -) 1,000 mls @ 75 mls/hr IV ASDIR [facility] Last Admin: 08/25/17 17:41 Dose: 75 mls/hr Nicotine (Nicoderm Patch -) 14 mg TD DAILY [facility] Last Admin: 08/25/17 09:05 Dose: 14 mg Ondansetron HCl (Zofran Injection) 4 mg IVPUSH Q6H PRN PRN Reason: NAUSEA AND/OR VOMITING Pantoprazole Sodium (Protonix -) 40 mg PO DAILY [facility] Last Admin: 08/25/17 09:05 Dose: 40 mg Polyethylene Glycol (Miralax (For Daily Use) -) 17 gm PO DAILY [facility] Last Admin: 08/25/17 09:04 Dose: 17 gm Quetiapine Fumarate (Seroquel -) 25 mg PO HS [facility] Last Admin: 08/24/17 22:23 Dose: 25 mg Thiamine HCl (Vitamin B1 -) 100 mg PO HS [facility] Last Admin: 08/24/17 22:23 Dose: 100 mg Last Vital Signs Temp Pulse Resp BP Pulse Ox 98.1 F 64 19 126/58 100 08/25/17 18:00 08/25/17 18:00 08/25/17 18:00 08/25/17 18:00 08/23/17 14:27 Lungs clear Heart RRR Abd Soft Ext no edema CBC, BMP 08/24/17 07:00 08/24/17 07:00 KIDNEY FUNCTION IMPROVING UNDERLYING CKD H/O OBSTRUCTIVE UROPATHY Plan- decrease IVF rates encouraged to have more ORAL FLUIDS
[2017-08-25] MEDS: THIAMINE HCL 100 MG TABLET (FP) PO SCH (21:50)
[2017-08-25] MEDS: QUEtiapine FUMARATE 25 MG TABLET (FP) PO SCH (21:50)
--- NOTE | 2017-08-25 22:58 | PN ---
Progress Note, Physician Chief Complaint: Orchiectomy History of Present Illness: NAD Post op orchiectomy slight discomfort IVF -seen by cardiology - Current Medication List Current Medications: Active Medications Acetaminophen (Tylenol -) 650 mg PO Q6H PRN PRN Reason: PAIN Albuterol Sulfate (Ventolin 0.083% Nebulizer Soln -) 1 amp NEB QIDR [facility] Last Admin: 08/25/17 17:45 Dose: 1 amp Apixaban (Eliquis -) 5 mg PO BID [facility] Last Admin: 08/25/17 21:50 Dose: 5 mg Artificial Tears (Artificial Tears) 1 drop OU BID PRN PRN Reason: DRY EYES Bicalutamide (Casodex -) 50 mg PO DAILY [facility] Last Admin: 08/25/17 09:05 Dose: 50 mg Diltiazem HCl (Cardizem Cd -) 240 mg PO DAILY [facility] Last Admin: 08/25/17 09:05 Dose: 240 mg Donepezil HCl (Aricept -) 10 mg PO DAILY [facility] Last Admin: 08/25/17 09:05 Dose: 10 mg Fentanyl (Sublimaze Injection -) 25 mcg IVPUSH [id number] PRN PRN Reason: PAIN Fentanyl (Sublimaze Injection -) 50 mcg IVPUSH [id number] PRN PRN Reason: PAIN Hydromorphone HCl (Dilaudid Injection -) 0.5 mg IVPUSH [id number] PRN PRN Reason: PAIN Dextrose/Sodium Chloride (D5-1/2ns -) 1,000 mls @ 75 mls/hr IV ASDIR [facility] Last Admin: 08/25/17 17:41 Dose: 75 mls/hr Nicotine (Nicoderm Patch -) 14 mg TD DAILY [facility] Last Admin: 08/25/17 09:05 Dose: 14 mg Ondansetron HCl (Zofran Injection) 4 mg IVPUSH Q6H PRN PRN Reason: NAUSEA AND/OR VOMITING Pantoprazole Sodium (Protonix -) 40 mg PO DAILY [facility] Last Admin: 08/25/17 09:05 Dose: 40 mg Polyethylene Glycol (Miralax (For Daily Use) -) 17 gm PO DAILY [facility] Last Admin: 08/25/17 09:04 Dose: 17 gm Quetiapine Fumarate (Seroquel -) 25 mg PO HS [facility] Last Admin: 08/25/17 21:50 Dose: 25 mg Thiamine HCl (Vitamin B1 -) 100 mg PO HS [facility] Last Admin: 08/25/17 21:50 Dose: 100 mg - Objective Vital Signs: Vital Signs Temperature 98.1 F 08/25/17 18:00 Pulse Rate 64 08/25/17 18:00 Respiratory Rate 19 08/25/17 18:00 Blood Pressure 126/58 08/25/17 18:00 O2 Sat by Pulse Oximetry (%) 100 08/23/17 14:27 Constitutional: Yes: Well Nourished, No Distress, Calm Cardiovascular: Yes: Regular Rate and Rhythm Respiratory: Yes: Regular Gastrointestinal: Yes: WNL Musculoskeletal: Yes: WNL Extremities: Yes: WNL Edema: No Peripheral Pulses WNL: Yes Wound/Incision: Yes: Dressing Dry and Intact Neurological: Yes: Alert, Pre-Existing Deficit Psychiatric: Yes: Alert Labs: CBC, BMP 08/24/17 07:00 08/24/17 07:00 INR, PTT INR 1.26 (0.82-1.09) H 08/21/17 17:30 Problem List - Problems (1) Atrial fibrillation Assessment/Plan: -Chronic -restart AC -cardiology on board Code(s): I48.91 - UNSPECIFIED ATRIAL FIBRILLATION Qualifiers: Atrial fibrillation type: persistent Qualified Code(s): I48.1 - Persistent atrial fibrillation (2) Prostate cancer Assessment/Plan: -s/p orchiectomy for complete androgen ablation -casodex -oncology on board Code(s): C61 - MALIGNANT NEOPLASM OF PROSTATE (3) Status post orchiectomy Code(s): Z90.79 - ACQUIRED ABSENCE OF OTHER GENITAL ORGAN(S) Assessment/Plan see problem list
--- NOTE | 2017-08-25 23:24 | PN ---
Progress Note (short form) - Note Progress Note: UROLOGY S/P LUCÍA.SCROTAL ORCHIECTOMY wound clean and dry scrotum empty and dry .pt. is urologiccly ok for d/c
[2017-08-26] MEDS: DEXTROSE 5%-0.45% SALINE 1,000 ML IV SCH (06:20)
[2017-08-26] MEDS: ALBUTEROL SO4 0.083% IH SOL 2.5 MG/3 ML VIAL.NEB. NEB SCH ×3 (06:34→17:26)
--- NOTE | 2017-08-26 09:43 | PN ---
Progress Note (short form) - Note Progress Note: pt stable pod 3 dressing changed yesterday drain removed repeat psa in 6 weeks and casooderx 50 qd
[2017-08-26] MEDS: BICALUTAMIDE 50 MG TABLET (FP) PO SCH (09:55)
[2017-08-26] MEDS: POLYETHYLENE GLYCOL 3350 119 GM BTL PO SCH (09:55)
[2017-08-26] MEDS: PANTOPRAZOLE 40 MG TABLET (FP) PO SCH (09:56)
[2017-08-26] MEDS: APIXABAN 5 MG TABLET PO SCH (09:56)
[2017-08-26] MEDS: DONEPEZIL HCL 10 MG TABLET (FP) PO SCH (09:56)
[2017-08-26] MEDS: NICOTINE 14 MG/24 HOURS TOPICAL PATCH TD SCH (09:56)
--- NOTE | 2017-08-26 13:11 | PN ---
Progress Note, Physician Chief Complaint: Not in distress History of Present Illness: Patient was seen and examined. Awake. Chart was reviewed Denies chest pain, SOB or palpitation - Current Medication List Current Medications: Active Medications Acetaminophen (Tylenol -) 650 mg PO Q6H PRN PRN Reason: PAIN Albuterol Sulfate (Ventolin 0.083% Nebulizer Soln -) 1 amp NEB QIDR [facility] Last Admin: 08/26/17 11:47 Dose: Not Given Apixaban (Eliquis -) 5 mg PO BID [facility] Last Admin: 08/26/17 09:56 Dose: 5 mg Artificial Tears (Artificial Tears) 1 drop OU BID PRN PRN Reason: DRY EYES Bicalutamide (Casodex -) 50 mg PO DAILY [facility] Last Admin: 08/26/17 09:55 Dose: 50 mg Diltiazem HCl (Cardizem Cd -) 240 mg PO DAILY [facility] Last Admin: 08/26/17 09:56 Dose: 240 mg Donepezil HCl (Aricept -) 10 mg PO DAILY [facility] Last Admin: 08/26/17 09:56 Dose: 10 mg Fentanyl (Sublimaze Injection -) 25 mcg IVPUSH [id number] PRN PRN Reason: PAIN Fentanyl (Sublimaze Injection -) 50 mcg IVPUSH [id number] PRN PRN Reason: PAIN Hydromorphone HCl (Dilaudid Injection -) 0.5 mg IVPUSH [id number] PRN PRN Reason: PAIN Dextrose/Sodium Chloride (D5-1/2ns -) 1,000 mls @ 75 mls/hr IV ASDIR [facility] Last Admin: 08/26/17 06:20 Dose: 75 mls/hr Nicotine (Nicoderm Patch -) 14 mg TD DAILY [facility] Last Admin: 08/26/17 09:56 Dose: 14 mg Ondansetron HCl (Zofran Injection) 4 mg IVPUSH Q6H PRN PRN Reason: NAUSEA AND/OR VOMITING Pantoprazole Sodium (Protonix -) 40 mg PO DAILY [facility] Last Admin: 08/26/17 09:56 Dose: 40 mg Polyethylene Glycol (Miralax (For Daily Use) -) 17 gm PO DAILY [facility] Last Admin: 08/26/17 09:55 Dose: 17 gm Quetiapine Fumarate (Seroquel -) 25 mg PO HS [facility] Last Admin: 08/25/17 21:50 Dose: 25 mg Thiamine HCl (Vitamin B1 -) 100 mg PO HS [facility] Last Admin: 08/25/17 21:50 Dose: 100 mg - Objective Vital Signs: Vital Signs Temperature 98.4 F 08/26/17 05:57 Pulse Rate 80 08/26/17 10:00 Respiratory Rate 20 08/26/17 10:00 Blood Pressure 154/73 08/26/17 10:00 O2 Sat by Pulse Oximetry (%) 100 08/23/17 14:27 Neck: Yes: Supple Cardiovascular: Yes: Pulse Irregular, S1, S2 Respiratory: Yes: CTA Bilaterally Gastrointestinal: Yes: Normal Bowel Sounds, Soft. No: Tenderness Edema: No Problem List - Problems (1) Atrial fibrillation Code(s): I48.91 - UNSPECIFIED ATRIAL FIBRILLATION Qualifiers: Atrial fibrillation type: persistent Qualified Code(s): I48.1 - Persistent atrial fibrillation (2) Hypercholesterolemia Code(s): E78.00 - PURE HYPERCHOLESTEROLEMIA, UNSPECIFIED (3) Hypothyroidism Code(s): E03.9 - HYPOTHYROIDISM, UNSPECIFIED Qualifiers: Hypothyroidism type: unspecified Qualified Code(s): E03.9 - Hypothyroidism , unspecified (4) Prostate cancer Code(s): C61 - MALIGNANT NEOPLASM OF PROSTATE (5) SILAS (acute kidney injury) Code(s): N17.9 - ACUTE KIDNEY FAILURE, UNSPECIFIED (6) CVA (cerebral infarction) Code(s): I63.9 - CEREBRAL INFARCTION, UNSPECIFIED Qualifiers: Cerebral infarction mechanism: unspecified mechanism Qualified Code(s): I63.9 - Cerebral infarction, unspecified (7) Diabetes Code(s): E11.9 - TYPE 2 DIABETES MELLITUS WITHOUT COMPLICATIONS Qualifiers: Diabetes mellitus type: type 2 Diabetes mellitus complication status: without complication (8) Diastolic CHF Code(s): I50.30 - UNSPECIFIED DIASTOLIC (CONGESTIVE) HEART FAILURE Qualifiers: Congestive heart failure chronicity: chronic Qualified Code(s): I50.32 - Chronic diastolic (congestive) heart failure (9) HTN (hypertension) Code(s): I10 - ESSENTIAL (PRIMARY) HYPERTENSION Qualifiers: Hypertension type: essential hypertension Qualified Code(s): I10 - Essential (primary) hypertension Assessment/Plan 1. Post orchiectomy 2. Atrial fibrillation with variable ventricular response 3. Hypertension 4. Hypercholesterolemia 5. 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 Hypothyroidism 7. Prostate CA with obstructive nephropathy 8. Acute on chronic kidney disease 9. History of diverticulitis PLAN: 1. Continue current medications 2. Continue Eliquis 3. Continue Cardizem as tolerated Further plans are to follow Han Nowak MD
--- NOTE | 2017-08-26 13:18 | DS ---
Physical Examination Vital Signs: Vital Signs Temperature 98.4 F 08/26/17 05:57 Pulse Rate 80 08/26/17 10:00 Respiratory Rate 20 08/26/17 10:00 Blood Pressure 154/73 08/26/17 10:00 O2 Sat by Pulse Oximetry (%) 100 08/23/17 14:27 Constitutional: Yes: Calm, Thin Cardiovascular: Yes: Pulse Irregular, S1, S2 Respiratory: Yes: CTA Bilaterally Gastrointestinal: Yes: Normal Bowel Sounds, Soft Edema: No Neurological: Yes: Alert, Oriented (to name) Labs: CBC, BMP 08/24/17 07:00 08/24/17 07:00 Discharge Summary Reason For Visit: ARF,ADENOCARCINOMA OF PROSTATE Current Active Problems Atrial fibrillation (Acute) Chronic kidney disease (CKD) (Acute) Hypercholesterolemia (Acute) Hypothyroidism (Acute) Prostate cancer (Acute) Status post orchiectomy (Acute) Hospital Course: PCP: Maye Castro - Admission History of Present Illness: 77 yo M history dementia, prostate CA, testicular tumor, afib on eliquis, SILAS, DM, HTN, COPD presents for admission for procedure Saturday- to get bilateral orchiectomy by dr carl Rico patient eliquis has been on hold since saturday night started on lovenox in hospital : got S/P LUCÍA.SCROTAL ORCHIECTOMY seen by rebecca on casodex recheck PSA in 6 weeks restarted on ELiquis for permanant afib\on cardizem diastolic heart failure Condition: Stable - Instructions Diet, Activity, Other Instructions: recheck PSA in 6 weeks on casodex Disposition: [facility] - Home Medications Comprehensive Discharge Medication List: Ambulatory Orders Apixaban [Eliquis -] 5 mg PO BID tablet 06/12/17 Bicalutamide [Casodex -] 50 mg PO DAILY tablet 06/12/17 Nicotine Patch [Nicoderm Patch -] 14 mg TD DAILY patch 06/12/17 Pantoprazole Sodium [Protonix -] 40 mg PO DAILY tab 06/12/17 Polyethylene Glycol 3350 [Miralax 119 gm Btl -] 17 gm PO DAILY bottle 06/12/17 Polyvinyl Alcohol [Artificial Tears] 1 drop OU BID PRN #0 ml 06/12/17 Acetaminophen [Tylenol] 650 mg PO QID PRN 06/25/17 Diltiazem HCl [Cardizem LA] 240 mg PO DAILY 06/25/17 Donepezil HCl [Aricept -] 10 mg PO DAILY tablet 07/17/17 Quetiapine Fumarate [Seroquel -] 25 mg PO HS tablet 07/17/17 Thiamine HCl [Vitamin B1 -] 100 mg PO HS tablet 07/17/17
[2017-08-26 15:16] VITALS: BP 131/68; PULSE 73; TEMP 97.9
== END 2017-08-26 18:00 | DRG 711 ==
LOC: JER 16:25 → JERBED 20:07 → J6S 08-22 02:01
PROVIDERS: ADMIT Family Medicine; ATTEND Family Medicine
PROC: 0VTC0ZZ Resection of Bilateral Testes, Open Approach (ICD-10-PCS; principal; 2017-08-23 11:00)
DX: C61 Malignant neoplasm of prostate (principal); N13.30 Unspecified hydronephrosis; N17.9 Acute kidney failure, unspecified; I13.0 Hypertensive heart and chronic kidney disease with heart failure and stage 1 through stage 4 chronic kidney disease, or unspecified chronic kidney disease; I50.32 Chronic diastolic (congestive) heart failure; I48.1 Persistent atrial fibrillation; N13.8 Other obstructive and reflux uropathy; Z79.01 Long term (current) use of anticoagulants; J44.9 Chronic obstructive pulmonary disease, unspecified; G30.9 Alzheimer's disease, unspecified; F02.80 Dementia in other diseases classified elsewhere, unspecified severity, without behavioral disturbance, psychotic disturbance, mood disturbance, and anxiety; F20.9 Schizophrenia, unspecified; Z87.891 Personal history of nicotine dependence; E78.00 Pure hypercholesterolemia, unspecified; E11.22 Type 2 diabetes mellitus with diabetic chronic kidney disease; I12.9 Hypertensive chronic kidney disease with stage 1 through stage 4 chronic kidney disease, or unspecified chronic kidney disease; N18.9 Chronic kidney disease, unspecified; E03.9 Hypothyroidism, unspecified; I25.10 Atherosclerotic heart disease of native coronary artery without angina pectoris
CPT/HCPCS: 36415; 80048; 80053; 81003; 81015; 84153; 84403; 85025; 85610; 86850; 86900; 86901; 87086; 93005; 93010; 94640; 94760; 97116-GP; 97161-GP; 99281-25

== ENCOUNTER 2017-09-28 08:43 | Inpatient (IN) | payer OTHER ==
--- NOTE | 2017-09-28 08:53 | PDOC ---
History of Present Illness - General Chief Complaint: Injury Stated Complaint: FALL Time Seen by Provider: 09/28/17 08:52 - History of Present Illness Initial Comments: 09/28/17 08:54 77 yo M with multiple medical comorbidities including HLD,HTN, NIDDM, COPD, Alzehiemers dementia, metastatic prostate ca. (on chemotherapy as of 07/30), CVA , and A-fib w/ RvR ( on Eliquis ) who arrives from [facility] with head injury 2/2 mechanical fall. Patient states that 30 minutes [employer] he was attempting to use the urinal and became lightheaded when standing and he fell. When attempting to grab the hand rail and stand up for a second time he fell again. Complains of posterior WALLS. Denies LOC, and was on the ground for 2- 3 minutes before nursing staff found patient and assisted him to wheelchair. Has been experiencing intermittent lightheadedness for the past 3-4 months upon standing. Normally ambulates without assistive devices. Denies neck/back/ext/ abdominal pain or trauma, tongue laceration, teeth avulsion, WALLS, N/V, vision change, tinnitus, new onset weakness, sensory disturbance. Denies fevers/chills , diarrhea, constipation. Denies alcohol use. Recent admission for BL scrotal orchiectomies (08/23) 2/2 metastatic prostate ca. Past History - Past Medical History Allergies/Adverse Reactions: Allergies Allergy/AdvReac Type Severity Reaction Status Date / Time amoxicillin trihydrate Allergy Mild Verified 09/28/17 08:48 [From Augmentin] potassium clavulanate AdvReac Unknown Verified 09/28/17 08:48 [From Augmentin] Home Medications: Ambulatory Orders Aa/Hydrolyzed Collagen, Whey [Lps Neutral Flavor Liquid] 960 ml PO DAILY Acetaminophen 650 mg PO QID PRN 09/28/17 Apixaban [Eliquis] 5 mg PO BID 09/28/17 Bicalutamide [Casodex] 50 mg PO DAILY 09/28/17 Diltiazem HCl [Cardizem LA] 240 mg PO DAILY 09/28/17 Donepezil HCl [Aricept] 10 mg PO HS 09/28/17 Hypromellose 0.5% Opth Soln [Artificial Tears] 1 drop OD BID 09/28/17 Nitrofurantoin Monohyd/M-Cryst [Nitrofurantoin [place]-Mcr 100 mg] 100 mg PO BID Pantoprazole Sodium 40 mg PO DAILY 09/28/17 Polyethylene Glycol 3350 [Gavilax] 17 gm PO DAILY 09/28/17 Quetiapine Fumarate [Seroquel -] 25 mg PO HS 09/28/17 Thiamine HCl [B-1] 100 mg PO HS 09/28/17 Cancer: Yes (prostate) Cardiac Disorders: Yes (A-FIB) COPD: Yes (emphysema) Dementia: Yes Diabetes: Yes (NIDDM) GI Disorders: Yes (divertivculitis) HTN: Yes Hypercholesterolemia: Yes Liver Disease: Yes (cirrhosis) - Suicide/Smoking/Psychosocial Hx Smoking History: Former smoker Have you smoked in the past 12 months: Yes Number of Cigarettes Smoked Daily: 20 'Breaking Loose' booklet given: 09/28/14 Hx Alcohol Use: No (past) Drug/Substance Use Hx: No Substance Use Type: None Review of Systems - Review of Systems Comments:: 09/28/17 08:53 GENERAL/CONSTITUTIONAL: No fever or chills. No weakness. HEAD, EYES, EARS, NOSE AND THROAT: Head trauma. No change in vision. No ear pain or discharge. No sore throat.- CARDIOVASCULAR: No chest pain or shortness of breath RESPIRATORY: No cough, wheezing, or hemoptysis. GASTROINTESTINAL: No nausea, vomiting, diarrhea or constipation. GENITOURINARY: No dysuria, frequency, or change in urination. MUSCULOSKELETAL: No joint or muscle swelling or pain. No neck or back pain. SKIN: No rash NEUROLOGIC:+ headach. No vertigo, loss of consciousness, or change in strength/ sensation. ENDOCRINE: No increased thirst. No abnormal weight change HEMATOLOGIC/LYMPHATIC: No anemia, easy bleeding, or history of blood clots. ALLERGIC/IMMUNOLOGIC: No hives or skin allergy. *Physical Exam - Physical Exam Comments: 09/28/17 08:53 GENERAL: Awake, alert, and fully oriented, in no acute distress HEAD: 5 cm sup. L side occiptial superficial, vertical laceration, with no sub q involvement. 4 cm inf R sided occipital superficial, horizontal laceration, with no sub q involvement. Normocephalic EYES: PERRLA, EOMI, sclera anicteric, conjunctiva clear ENT: Auricles normal inspection, hearing grossly normal, nares patent, oropharynx clear without exudates. Moist mucosa. NECK: Normal ROM, supple, no lymphadenopathy, JVD, or masses LUNGS: No distress, speaks full sentences, clear to auscultation bilaterally HEART: Regular rate and rhythm, normal S1 and S2, no murmurs, rubs or gallops, peripheral pulses normal and equal bilaterally. ABDOMEN: Soft, nontender, normoactive bowel sounds. No guarding, no rebound. No masses EXTREMITIES : Normal inspection, Normal range of motion, no edema. No clubbing or cyanosis. NEUROLOGICAL: Cranial nerves II through XII grossly intact. Normal speech, normal gait, no focal sensorimotor deficits. BRENDA intact. Absent dysmetria on FTN. SKIN: Warm, Dry, normal turgor, no rashes or lesions noted. Procedures - Laceration/Wound Repair Left Upper and Lower Posterior Head Wound Length: 2.6 to 5.0 cm Wound Explored: clean, no foreign body present Wound's Depth, Shape: superficial Irrigated w/ Saline: Yes Betadine Prep: No Wound Debrided: minimal Wound Repaired With: Ryan Number of Sutures: 8 Sterile Dressing Applied: No Heart Score/ECG Review - History History: Slightly suspicious - Electrocardiogram EKG: Non specific repolarization disturbance - Age Age: >/= 65 - Risk Factors Risk Factors Heart Score: Yes Hx Hypercholesterolemia, Yes Hx Hypertension, Yes Hx Diabetes, Yes Smoking History, Yes Positive family hx of cardiac disease Based on the list above the patient has:: >/=3 risk factors or Hx atherosclerotic disease - Troponin Troponin: </= normal limit - Score Heart Score - Total: 5 ED Treatment Course - LABORATORY CBC & Chemistry Diagram: 09/28/17 09:55 09/28/17 09:55 Medical Decision Making - Medical Decision Making 77 yo M with multiple medical comorbidities including HLD,HTN, NIDDM, COPD, Alzehiemers dementia, metastatic prostate ca. (on chemotherapy as of 07/30) s/p BL scrotal orchiectomies (08/23) , CVA, and A-fib w/ RvR ( on Eliquis ) who arrives from outside nursing facility/[facility] with head injury 2/2 fall approximately 30 minutes [employer]. Attempting to use the urinal and became lightheaded when standing and fell with subsequent post head trauma. Denies LOC , and was on the ground for 2-3 minutes before nursing staff found patient and assisted him to wheelchair. Denies neck/back/ext/abdominal pain or trauma, tongue laceration, teeth avulsion, WALLS, N/V, vision change, tinnitus, new onset weakness, sensory disturbance. Denies fevers/chills, diarrhea, constipation. Denies alcohol use. Physical exam notable for 2 superficial posterior occipital lacerations 4 and 5 cm. Patient hypertensive 160/78. Will evaluate for intracerebral hemorrhage/hematoma. Will also workup patient for cause of lightheadedness. Suspect electrolyte vs. cardiac vs. infectious etiology. ED Course: CT HEAD NON CON CT C SPINE EKG: A-fib w/ RvR. Absent KAYLA, STD, or TWI. QTc 352. 09/28/17 10:43 2 post scalp lacerations repaired with 8 ryan and irrigated with NS. 09/28/17 11:06 CBC: Unremarkable Trop: Neg CMP: Unremarkable CR: 1.7 ( 1.5-1.9) 09/28/17 11:09 CXR: Unremarkable. No acute interval changes Hip/Pelvis: Unremarkable. No acute interval changes. CT HEAD/C -SPINE: Unremarkable 09/28/17 11:11 Heart score elevated 5 with 13 % risk MACE. Obs. 09/28/17 11:33 09/28/17 11:58 Will admit to inpatient/med. *DC/Admit/Observation/Transfer Diagnosis at time of Disposition: Fall - Discharge Dispostion Condition at time of disposition: Stable Admit: Yes - Referrals Referrals: Maye Castro MD [Primary Care Provider] - - Patient Instructions - Post Discharge Activity
--- NOTE | 2017-09-28 09:38 | PDOC ---
Attending Attestation - Resident Resident Name: Randy Ga - ED Attending Attestation I have performed the following: I have examined & evaluated the patient, The case was reviewed & discussed with the resident, I agree w/resident's findings & plan, Exceptions are as noted - HPI HPI: 09/28/17 09:35 HLD,HTN, NIDDM, COPD, Alzehiemers dementia, metastatic prostate ca. (on chemotherapy as of 07/30), CVA, and A-fib w/ RvR (on Eliquis) who arrives from outside nursing facility/[facility] with head injury 2/2 fall. Pt reports feeling lightheaded this morning when he woke up and after he used the bathroom his lightheadedness became worse and he fell. When he attempted to get up to reach the hand rail, he fell again this time striking his head. Denies any loss of consciousness. He denies fevers, chills, chest pain, shortness of breath, abdominal pain, focal weakness or numbness. - Physicial Exam PE: 09/28/17 09:38 agree with resident exam - Medical Decision Making 09/28/17 11:58 77-year-old male with multiple medical problems including A. fib on Eliquis and dementia presents with fall after feeling lightheaded. The patient sustained 2 scalp lacerations that have been repaired with elena. Initial CT scan of the head, CT of the cervical spine, chest x-ray, and pelvis x-ray are negative for acute pathology. Given the patient is on Eliquis, he will require an interval repeat CT scan of the head. Discussed the case with Dr. Castro, he will admit the patient to observation for further evaluation and management. Case discussed in detail with admitting physician including history, physical exam and ancillary studies. Admitting physician has assumed care for the patient, will follow all pending diagnostics and will complete the evaluation and treatment. Discharge Disposition - Diagnosis Fall - Discharge Dispostion Condition at time of disposition: Stable Last Admission D/C Date: 08/26/17 Admit: Yes - Referrals Referrals: Maye Castro MD [Primary Care Provider] - - Patient Instructions - Post Discharge Activity
[2017-09-28 10:14] LABS: BASO % 0.8 % (0-2.0); EOS % 1.1 % (0-4.5); HEMATOCRIT 35.7 % (35.4-49); HEMOGLOBIN 11.5 GM/dL (11.7-16.9); LYMPH % 8.4 % (8-40); MCH 28.7 pg (25.7-33.7); MCHC 32.2 g/dl (32.0-35.9); MEAN CELL VOLUME 89.1 fl (80-96); MEAN PLT VOLUME 7.4 fl (7.5-11.1); MONO % 8.5 % (3.8-10.2); NEUT % 81.2 % (42.8-82.8); PLATELET COUNT 285 K/MM3 (134-434); RBC 4.01 M/mm3 (4.00-5.60); RDW 12.6 % (11.9-15.9); WHITE BLOOD COUNT 12.1 K/mm3 (4.0-10.0)
[2017-09-28 10:23] LABS: INR 1.46 (0.82-1.09); PROTHROMBIN TIME (PATIENT) 16.5 SEC (9.98-11.88)
[2017-09-28 10:35] LABS: ALBUMIN 3.1 g/dl (3.4-5.0); ANION GAP 7 (8-16); BILIRUBIN,TOTAL 0.7 mg/dL (0.2-1.0); BLOOD UREA NITROGEN 27 mg/dL (7-18); CALCIUM 9.1 mg/dL (8.5-10.1); CHLORIDE 103 mmol/L (98-107); CO2 26 mmol/L (21-32); CREATININE 1.7 mg/dL (0.7-1.3); GLUCOSE,RANDOM 99 mg/dL (74-106); POTASSIUM 4.3 mmol/L (3.5-5.1); SGOT/AST 11 U/L (15-37); SGPT/ALT 11 U/L (12-78); SODIUM 136 mmol/L (136-145); TOT PROT 6.5 g/dl (6.4-8.2)
[2017-09-28 10:37] LABS: ALK PHOS 99 U/L (45-117); N-TERMINAL BNP 1374.06 pg/ml (5-450)
[2017-09-28 13:19] LABS: URINE APPEARANCE CLOUDY; URINE BILIRUBIN NEGATIVE (NEGATIVE); URINE BLOOD 3+ (NEGATIVE); URINE COLOR YELLOW; URINE GLUCOSE (UA) NEGATIVE (NEGATIVE); URINE KETONE NEGATIVE (NEGATIVE); URINE NITRITE NEGATIVE (NEGATIVE); URINE UROBILINOGEN NEGATIVE mg/dL (0.2-1.0)
[2017-09-28 13:20] LABS: URINE LEUK ESTERASE 3+ (NEGATIVE); URINE PROTEIN 1+ (NEGATIVE)
--- NOTE | 2017-09-28 13:20 | HP ---
Admitting History and Physical - Admission History of Present Illness: 77 yo M with multiple medical comorbidities including HLD,HTN, NIDDM, COPD, Alzehiemers dementia, metastatic prostate ca. (on chemotherapy as of 07/30) s/p BL scrotal orchiectomies (08/23) , CVA, and A-fib w/ RvR ( on Eliquis ) who arrives from outside nursing facility/[facility] with head injury 2/2 fall approximately 30 minutes [employer]. Attempting to use the urinal and became lightheaded when standing and fell with subsequent post head trauma. Denies LOC , and was on the ground for 2-3 minutes before nursing staff found patient and assisted him to wheelchair. Denies neck/back/ext/abdominal pain or trauma, tongue laceration, teeth avulsion, WALLS, N/V, vision change, tinnitus, new onset weakness, sensory disturbance. Denies fevers/chills, diarrhea, constipation. Denies alcohol use. Physical exam notable for 2 superficial posterior occipital lacerations 4 and 5 cm. Patient hypertensive 160/78. Will evaluate for intracerebral hemorrhage/hematoma. Will also workup patient for cause of lightheadedness. Suspect electrolyte vs. cardiac vs. infectious etiology. ED Course: CT HEAD NON CON CT C SPINE EKG: A-fib w/ RvR. Absent KAYLA, STD, or TWI. QTc 352. 09/28/17 10:43 2 post scalp lacerations repaired with 8 elena - Past Medical History DOOR CLAMPER: No: Alzheimer's, CVA, Dementia, Migraine, Multiple Sclerosis, Peripheral Neuropathy, Parkinson's, Seizure, Syncope, TIA, Vertigo, Other Cardiovascular: Yes: AFIB, CAD, HTN, Hyperlipdemia Pulmonary: No: Asthma, Bronchitis, Cancer, COPD, O2 Dependent, Pneumonia, Previously Intubated, Pulmonary Embolus, Pulmonary Fibrosis, Sleep Apnea, Other Gastrointestinal: No: Ascites, Cancer, Constipation, Crohn's Disease, Diverticulitis, Diverticulosis, Esophageal Varices, Gastritis, GERD, GI Bleed, Hemorrhoids, Hiatal Hernia, Inflamatory Bowel Disease, Irritable Bowel Disease, Pancreatitis, Peptic Ulcer Disease, Ulcerative Colitis, Other Hepatobiliary: Yes: Cirrhosis, Cholelithiasis, Cholecystitis, Choledocholithiasis, Hepatitis A, Hepatitis B, Hepatitis C, Other Renal/: Yes: Renal Failure, Renal Inusuff, BPH, Cancer, Hematuria, Hemodialysis, Neurogenic Bladder, Renal Calculi, UTI, Other Endocrine: Yes: Diabetes Mellitus - Smoking History Smoking history: Former smoker Have you smoked in the past 12 months: Yes Aproximately how many cigarettes per day: 20 - Alcohol/Substance Use Hx Alcohol Use: No (past) - Social History ADL: Independent 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, 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 Travel: No Home Medications - Allergies Allergies/Adverse Reactions: Allergies Allergy/AdvReac Type Severity Reaction Status Date / Time amoxicillin trihydrate Allergy Mild Verified 09/28/17 08:48 [From Augmentin] potassium clavulanate AdvReac Unknown Verified 09/28/17 08:48 [From Augmentin] - Home Medications Home Medications: Ambulatory Orders Aa/Hydrolyzed Collagen, Whey [Lps Neutral Flavor Liquid] 960 ml PO DAILY Acetaminophen 650 mg PO QID PRN 09/28/17 Apixaban [Eliquis] 5 mg PO BID 09/28/17 Bicalutamide [Casodex] 50 mg PO DAILY 09/28/17 Diltiazem HCl [Cardizem LA] 240 mg PO DAILY 09/28/17 Donepezil HCl [Aricept] 10 mg PO HS 09/28/17 Hypromellose 0.5% Opth Soln [Artificial Tears] 1 drop OD BID 09/28/17 Nitrofurantoin Monohyd/M-Cryst [Nitrofurantoin [place]-Mcr 100 mg] 100 mg PO BID Pantoprazole Sodium 40 mg PO DAILY 09/28/17 Polyethylene Glycol 3350 [Gavilax] 17 gm PO DAILY 09/28/17 Quetiapine Fumarate [Seroquel -] 25 mg PO HS 09/28/17 Thiamine HCl [B-1] 100 mg PO HS 09/28/17 Physical Examination Vital Signs: Vital Signs Temperature 98.6 F 09/28/17 13:11 Pulse Rate 92 H 09/28/17 13:11 Respiratory Rate 16 09/28/17 13:11 Blood Pressure 134/73 09/28/17 13:11 O2 Sat by Pulse Oximetry (%) 96 09/28/17 13:11 Cardiovascular: Yes: S1, S2 Respiratory: Yes: Regular, CTA Bilaterally Gastrointestinal: Yes: Normal Bowel Sounds, Soft Wound/Incision: Yes: Coats Intact Neurological: Yes: Alert, Oriented, Weakness Labs: CBC, BMP 09/28/17 09:55 09/28/17 09:55 Problem List - Problems (1) Fall Assessment/Plan: MONITOR BP ORTHOSTATIC BP NEURO F/U CT Code(s): W19.XXXA - UNSPECIFIED FALL, INITIAL ENCOUNTER (2) Atrial fibrillation Assessment/Plan: HOLD ELIQUIS Code(s): I48.91 - UNSPECIFIED ATRIAL FIBRILLATION Qualifiers: Atrial fibrillation type: persistent Qualified Code(s): I48.1 - Persistent atrial fibrillation (3) Gait disturbance Assessment/Plan: PT Code(s): R26.9 - UNSPECIFIED ABNORMALITIES OF GAIT AND MOBILITY
[2017-09-28 13:34] LABS: EPI CELLS RARE /HPF (FEW)
[2017-09-28] MEDS ORDERED: ACETAMINOPHEN 325 MG TABLET (FP) PO PRN (15:54)
[2017-09-28] MEDS: DONEPEZIL HCL 10 MG TABLET (FP) PO SCH (21:46)
[2017-09-28] MEDS: QUEtiapine FUMARATE 25 MG TABLET (FP) PO SCH (21:46)
[2017-09-28] MEDS: THIAMINE HCL 100 MG TABLET (FP) PO SCH (21:46)
[2017-09-28] MEDS ORDERED: PATIENT'S OWN MEDICATION (NON-FORMULARY) (Nitrofurantoin Monohyd/M-Cryst [Nitrofurantoin M PO SCH (22:00)
[2017-09-29 09:51] LABS: EOS % 2.8 % (0-4.5); HEMATOCRIT 32.5 % (35.4-49); HEMOGLOBIN 10.8 GM/dL (11.7-16.9); LYMPH % 12.6 % (8-40); MCH 29.4 pg (25.7-33.7); MCHC 33.1 g/dl (32.0-35.9); MEAN CELL VOLUME 88.8 fl (80-96); MEAN PLT VOLUME 7.5 fl (7.5-11.1); MONO % 7.4 % (3.8-10.2); NEUT % 76.2 % (42.8-82.8); PLATELET COUNT 262 K/MM3 (134-434); RBC 3.66 M/mm3 (4.00-5.60); RDW 12.7 % (11.9-15.9); WHITE BLOOD COUNT 9.5 K/mm3 (4.0-10.0)
[2017-09-29 10:13] LABS: ALBUMIN 2.8 g/dl (3.4-5.0); ANION GAP 7 (8-16); BLOOD UREA NITROGEN 24 mg/dL (7-18); CALCIUM 8.9 mg/dL (8.5-10.1); CHLORIDE 104 mmol/L (98-107); CO2 28 mmol/L (21-32); CREATININE 1.6 mg/dL (0.7-1.3); GLUCOSE,RANDOM 146 mg/dL (74-106); POTASSIUM 3.8 mmol/L (3.5-5.1); SGOT/AST 8 U/L (15-37); SGPT/ALT 10 U/L (12-78); SODIUM 139 mmol/L (136-145)
[2017-09-29] MEDS ORDERED: PT OWN MED DRAWER 7, Y5N ONE (10:16)
[2017-09-29 10:17] LABS: ALK PHOS 88 U/L (45-117); BILIRUBIN,TOTAL 0.4 mg/dL (0.2-1.0)
[2017-09-29] MEDS: BICALUTAMIDE 50 MG TABLET (FP) PO SCH (10:17)
[2017-09-29] MEDS: PANTOPRAZOLE 40 MG TABLET (FP) PO SCH (10:17)
[2017-09-29] MEDS: POLYETHYLENE GLYCOL 3350 119 GM BTL PO SCH (10:18)
[2017-09-29] MEDS: ARTIFICIAL TEARS (POLYVINYL ALCOHOL 1.4%) OPTH DROPS OD SCH ×3 (11:36→21:34)
--- NOTE | 2017-09-29 12:34 | CONSULT ---
Consult - text type - Consultation Consultation Note: Neurology History of Present Illness Chief Complaint: Injury Stated Complaint: FALL 77 yo M with multiple medical comorbidities including HLD,HTN, NIDDM, COPD, Alzehiemers dementia, metastatic prostate ca. (on chemotherapy as of 07/30), CVA , and A-fib w/ RvR ( on Eliquis ) who arrives from [facility] with head injury 2/2 mechanical fall. Patient states that 30 minutes [facility] he was attempting to use the urinal and became lightheaded when standing and he fell. When attempting to grab the hand rail and stand up for a second time he fell again. Complains of posterior WALLS. Denies LOC, and was on the ground for 2- 3 minutes before nursing staff found patient and assisted him to wheelchair. Has been experiencing intermittent lightheadedness for the past 3-4 months upon standing. Normally ambulates without assistive devices. Denies neck/back/ext/ abdominal pain or trauma, tongue laceration, teeth avulsion, WALLS, N/V, vision change, tinnitus, new onset weakness, sensory disturbance. Denies fevers/chills , diarrhea, constipation. Denies alcohol use. Recent admission for BL scrotal orchiectomies (08/23) 2/[address] head completed in ER and reviewed. Did not show any intracranial bleeding. CT C spine reviewed and showed no acute Fx, grade 1 anterolistesis noted also iwht T2 complression, possibly chronic. Past History - Past Medical History Allergies/Adverse Reactions: Allergies Allergy/AdvReac Type Severity Reaction Status Date / Time amoxicillin trihydrate Allergy Mild Verified 09/28/17 08:48 [From Augmentin] potassium clavulanate AdvReac Unknown Verified 09/28/17 08:48 [From Augmentin] Home Medications: Ambulatory Orders Aa/Hydrolyzed Collagen, Whey [Lps Neutral Flavor Liquid] 960 ml PO DAILY Acetaminophen 650 mg PO QID PRN 09/28/17 Apixaban [Eliquis] 5 mg PO BID 09/28/17 Bicalutamide [Casodex] 50 mg PO DAILY 09/28/17 Diltiazem HCl [Cardizem LA] 240 mg PO DAILY 09/28/17 Donepezil HCl [Aricept] 10 mg PO HS 09/28/17 Hypromellose 0.5% Opth Soln [Artificial Tears] 1 drop OD BID 09/28/17 Nitrofurantoin Monohyd/M-Cryst [Nitrofurantoin [place]-Mcr 100 mg] 100 mg PO BID Pantoprazole Sodium 40 mg PO DAILY 09/28/17 Polyethylene Glycol 3350 [Gavilax] 17 gm PO DAILY 09/28/17 Quetiapine Fumarate [Seroquel -] 25 mg PO HS 09/28/17 Thiamine HCl [B-1] 100 mg PO HS 09/28/17 Cancer: Yes (prostate) Cardiac Disorders: Yes (A-FIB) COPD: Yes (emphysema) Dementia: Yes Diabetes: Yes (NIDDM) GI Disorders: Yes (divertivculitis) HTN: Yes Hypercholesterolemia: Yes Liver Disease: Yes (cirrhosis) - Suicide/Smoking/Psychosocial Hx Smoking History: Former smoker Have you smoked in the past 12 months: Yes Number of Cigarettes Smoked Daily: 20 'Breaking Loose' booklet given: 09/28/14 Hx Alcohol Use: No (past) Drug/Substance Use Hx: No Substance Use Type: None Review of Systems GENERAL/CONSTITUTIONAL: No fever or chills. No weakness. HEAD, EYES, EARS, NOSE AND THROAT: Head trauma. No change in vision. No ear pain or discharge. No sore throat.- CARDIOVASCULAR: No chest pain or shortness of breath RESPIRATORY: No cough, wheezing, or hemoptysis. GASTROINTESTINAL: No nausea, vomiting, diarrhea or constipation. GENITOURINARY: No dysuria, frequency, or change in urination. MUSCULOSKELETAL: No joint or muscle swelling or pain. No neck or back pain. SKIN: No rash NEUROLOGIC:+ headach. No vertigo, loss of consciousness, or change in strength/ sensation. ENDOCRINE: No increased thirst. No abnormal weight change HEMATOLOGIC/LYMPHATIC: No anemia, easy bleeding, or history of blood clots. ALLERGIC/IMMUNOLOGIC: No hives or skin allergy. *Physical Exam GENERAL: Awake, alert, and fully oriented, in no acute distress HEAD: 5 cm sup. L side occiptial superficial, vertical laceration, with no sub q involvement. 4 cm inf R sided occipital superficial, horizontal laceration, with no sub q involvement. Normocephalic EYES: PERRLA, EOMI, sclera anicteric, conjunctiva clear ENT: Auricles normal inspection, hearing grossly normal, nares patent, oropharynx clear without exudates. Moist mucosa. NECK: Normal ROM, supple, no lymphadenopathy, JVD, or masses LUNGS: No distress, speaks full sentences, clear to auscultation bilaterally HEART: Regular rate and rhythm, normal S1 and S2, no murmurs, rubs or gallops, peripheral pulses normal and equal bilaterally. ABDOMEN: Soft, nontender, normoactive bowel sounds. No guarding, no rebound. No masses EXTREMITIES : Normal inspection, Normal range of motion, no edema. No clubbing or cyanosis. NEUROLOGICAL: Cranial nerves II through XII grossly intact. Normal speech, normal gait, no focal sensorimotor deficits. BRENDA intact. Absent dysmetria on FTN. SKIN: Warm, Dry, normal turgor, no rashes or lesions noted. CBCD WBC 9.5 K/mm3 (4.0-10.0) 09/29/17 09:00 RBC 3.66 M/mm3 (4.00-5.60) L 09/29/17 09:00 Hgb 10.8 GM/dL (11.7-16.9) L 09/29/17 09:00 Hct 32.5 % (35.4-49) L 09/29/17 09:00 MCV 88.8 fl (80-96) 09/29/17 09:00 MCHC 33.1 g/dl (32.0-35.9) 09/29/17 09:00 RDW 12.7 % (11.9-15.9) 09/29/17 09:00 Plt Count 262 K/MM3 (134-434) 09/29/17 09:00 MPV 7.5 fl (7.5-11.1) 09/29/17 09:00 CMP Sodium 139 mmol/L (136-145) 09/29/17 09:00 Potassium 3.8 mmol/L (3.5-5.1) 09/29/17 09:00 Chloride 104 mmol/L (98-107) 09/29/17 09:00 Carbon Dioxide 28 mmol/L (21-32) 09/29/17 09:00 Anion Gap 7 (8-16) L 09/29/17 09:00 BUN 24 mg/dL (7-18) H 09/29/17 09:00 Creatinine 1.6 mg/dL (0.7-1.3) H 09/29/17 09:00 Creat Clearance w eGFR 42.35 (>60) 09/29/17 09:00 Calcium 8.9 mg/dL (8.5-10.1) 09/29/17 09:00 Total Bilirubin 0.4 mg/dL (0.2-1.0) D 09/29/17 09:00 AST 8 U/L (15-37) L D 09/29/17 09:00 ALT 10 U/L (12-78) L 09/29/17 09:00 Alkaline Phosphatase 88 U/L (45-117) 09/29/17 09:00 Total Protein 6.0 g/dl (6.4-8.2) L 09/29/17 09:00 Albumin 2.8 g/dl (3.4-5.0) L 09/29/17 09:[address] C spine reviewed Medical Decision Making 77 yo M with multiple medical comorbidities including HLD,HTN, NIDDM, COPD, Alzehiemers dementia, metastatic prostate ca. (on chemotherapy as of 07/30), CVA , and A-fib w/ RvR ( on Eliquis ) who arrives from [facility]/ [facility] with head injury 2/2 mechanical fall. Patient states that 30 minutes [facility] he was attempting to use the urinal and became lightheaded when standing and he fell. When attempting to grab the hand rail and stand up for a second time he fell again. Complains of posterior WALLS. Denies LOC, and was on the ground for 2- 3 minutes before nursing staff found patient and assisted him to wheelchair. Has been experiencing intermittent lightheadedness for the past 3-4 months upon standing. Normally ambulates without assistive devices. Denies neck/back/ext/ abdominal pain or trauma, tongue laceration, teeth avulsion, WALLS, N/V, vision change, tinnitus, new onset weakness, sensory disturbance. CT head completed in ER and reviewed. Did not show any intracranial bleeding. CT C spine reviewed and showed no acute Fx, grade 1 anterolistesis noted also with T2 complression, possibly chronic. Pain mgmt recommended. Physical therapy may be beneficial. Fall precautions. Laceration repaired, monitor for any infections. No intracranial bleeding, will not require AEDS, does not appear to be seizure event. Eliquis on hold for now but recommend restart as soon as able given h/o Afib and possibility of CVA.
--- NOTE | 2017-09-29 13:37 | PN ---
Progress Note, Physician - Current Medication List Current Medications: Active Medications Acetaminophen (Tylenol -) 650 mg PO Q6H PRN PRN Reason: PAIN Apixaban (Eliquis -) 5 mg PO BID [facility] Bicalutamide (Casodex -) 50 mg PO DAILY [facility] Last Admin: 09/29/17 10:17 Dose: 50 mg Diltiazem HCl (Cardizem Cd -) 180 mg PO DAILY [facility] Donepezil HCl (Aricept -) 10 mg PO HS [facility] Last Admin: 09/28/17 21:46 Dose: 10 mg Non-Formulary Medication (Hypromellose 0.5% Opth Soln [Artificial Tears]) 1 drop OD BID [facility] Non-Formulary Medication (Nitrofurantoin Monohyd/M-Cryst [Nitrofurantoin [place]- Mcr 100 Mg]) 100 mg PO BID [facility] Pantoprazole Sodium (Protonix -) 40 mg PO DAILY [facility] Last Admin: 09/29/17 10:17 Dose: 40 mg Polyethylene Glycol (Miralax (For Daily Use) -) 17 gm PO DAILY [facility] Last Admin: 09/29/17 10:18 Dose: 17 grams Quetiapine Fumarate (Seroquel -) 25 mg PO HS [facility] Last Admin: 09/28/17 21:46 Dose: 25 mg Thiamine HCl (Vitamin B1 -) 100 mg PO HS [facility] Last Admin: 09/28/17 21:46 Dose: 100 mg - Objective Vital Signs: Vital Signs Temperature 97.5 F L 09/29/17 07:00 Pulse Rate 80 09/29/17 07:00 Respiratory Rate 18 09/29/17 07:00 Blood Pressure 110/55 09/29/17 07:00 O2 Sat by Pulse Oximetry (%) 98 09/29/17 05:50 Cardiovascular: Yes: S1, S2 Respiratory: Yes: Regular, CTA Bilaterally Gastrointestinal: Yes: Normal Bowel Sounds, Soft Edema: No Neurological: Yes: Alert, Oriented Labs: CBC, BMP 09/29/17 09:00 09/29/17 09:00 INR, PTT INR 1.46 (0.82-1.09) H 09/28/17 09:55 Problem List - Problems (1) Fall Assessment/Plan: MONITOR BP ORTHOSTATIC BP Selected Entries 09/28/17 16:40 Blood Pressure 101/63 [Right side Sitting] Blood Pressure 81/52 [Right side Standing] Blood Pressure 147/82 [Right side Supine] meds adjusted NEURO F/U CT Code(s): W19.XXXA - UNSPECIFIED FALL, INITIAL ENCOUNTER (2) Atrial fibrillation Assessment/Plan: RESUME ELIQUIS MONITOR RATE Code(s): I48.91 - UNSPECIFIED ATRIAL FIBRILLATION Qualifiers: Atrial fibrillation type: persistent Qualified Code(s): I48.1 - Persistent atrial fibrillation (3) Gait disturbance Assessment/Plan: PT Code(s): R26.9 - UNSPECIFIED ABNORMALITIES OF GAIT AND MOBILITY
[2017-09-29] MEDS: APIXABAN 5 MG TABLET PO SCH ×2 (17:37→21:34)
[2017-09-29] MEDS: DONEPEZIL HCL 10 MG TABLET (FP) PO SCH (21:33)
[2017-09-29] MEDS: THIAMINE HCL 100 MG TABLET (FP) PO SCH (21:33)
[2017-09-29] MEDS: QUEtiapine FUMARATE 25 MG TABLET (FP) PO SCH (22:51)
--- NOTE | 2017-09-30 08:53 | PN ---
Progress Note, Physician History of Present Illness: NO COMPLAINTS - Current Medication List Current Medications: Active Medications Acetaminophen (Tylenol -) 650 mg PO Q6H PRN PRN Reason: PAIN Apixaban (Eliquis -) 5 mg PO BID [facility] Last Admin: 09/29/17 21:34 Dose: Not Given Artificial Tears (Artificial Tears) 1 drop OD BID [facility] Last Admin: 09/29/17 21:34 Dose: 1 drop Bicalutamide (Casodex -) 50 mg PO DAILY [facility] Last Admin: 09/29/17 10:17 Dose: 50 mg Diltiazem HCl (Cardizem Cd -) 180 mg PO DAILY [facility] Donepezil HCl (Aricept -) 10 mg PO [facility] Last Admin: 09/29/17 21:33 Dose: 10 mg Non-Formulary Medication (Nitrofurantoin Monohyd/M-Cryst [Nitrofurantoin [place]- Mcr 100 Mg]) 100 mg PO BID [facility] Pantoprazole Sodium (Protonix -) 40 mg PO DAILY [facility] Last Admin: 09/29/17 10:17 Dose: 40 mg Polyethylene Glycol (Miralax (For Daily Use) -) 17 gm PO DAILY [facility] Last Admin: 09/29/17 10:18 Dose: 17 grams Quetiapine Fumarate (Seroquel -) 25 mg PO [facility] Last Admin: 09/29/17 22:51 Dose: Not Given Thiamine HCl (Vitamin B1 -) 100 mg PO [facility] Last Admin: 09/29/17 21:33 Dose: 100 mg - Objective Vital Signs: Vital Signs Temperature 97.3 F L 09/30/17 06:00 Pulse Rate 69 09/30/17 06:00 Respiratory Rate 18 09/30/17 06:00 Blood Pressure 106/53 09/30/17 06:00 O2 Sat by Pulse Oximetry (%) 99 09/29/17 21:00 Cardiovascular: Yes: Regular Rate and Rhythm Respiratory: Yes: Regular, CTA Bilaterally Gastrointestinal: Yes: Normal Bowel Sounds, Soft Labs: CBC, BMP 09/29/17 09:00 09/29/17 09:00 INR, PTT INR 1.46 (0.82-1.09) H 09/28/17 09:55 Problem List - Problems (1) Fall Assessment/Plan: MONITOR BP ORTHOSTATIC BP Selected Entries 09/28/17 16:40 Blood Pressure 101/63 [Right side Sitting] Blood Pressure 81/52 [Right side Standing] Blood Pressure 147/82 [Right side Supine] meds adjusted ---REPEAT ORTHOSTATIC BP PENDING NEURO F/U CT Code(s): W19.XXXA - UNSPECIFIED FALL, INITIAL ENCOUNTER (2) Atrial fibrillation Assessment/Plan: RESUME ELIQUIS MONITOR RATE Code(s): I48.91 - UNSPECIFIED ATRIAL FIBRILLATION Qualifiers: Atrial fibrillation type: persistent Qualified Code(s): I48.1 - Persistent atrial fibrillation (3) Gait disturbance Assessment/Plan: PT Code(s): R26.9 - UNSPECIFIED ABNORMALITIES OF GAIT AND MOBILITY (4) Prostate cancer Assessment/Plan: S/P ORCIECTOMY Code(s): C61 - MALIGNANT NEOPLASM OF PROSTATE (5) UTI (urinary tract infection) Assessment/Plan: UA AND CS Code(s): N39.0 - URINARY TRACT INFECTION, SITE NOT SPECIFIED Qualifiers: Urinary tract infection type: site unspecified (6) Weight loss Assessment/Plan: TFT GI CONSULT Code(s): R63.4 - ABNORMAL WEIGHT LOSS
[2017-09-30 09:42] LABS: EOS % 2.9 % (0-4.5); HEMATOCRIT 33.9 % (35.4-49); HEMOGLOBIN 11.1 GM/dL (11.7-16.9); MCH 29.2 pg (25.7-33.7); MCHC 32.6 g/dl (32.0-35.9); MEAN CELL VOLUME 89.6 fl (80-96); MEAN PLT VOLUME 7.8 fl (7.5-11.1); MONO % 5.2 % (3.8-10.2); NEUT % 76.9 % (42.8-82.8); PLATELET COUNT 295 K/MM3 (134-434); RBC 3.79 M/mm3 (4.00-5.60); RDW 12.7 % (11.9-15.9); WHITE BLOOD COUNT 10.5 K/mm3 (4.0-10.0)
--- NOTE | 2017-09-30 09:52 | PN ---
Progress Note (short form) - Note Progress Note: Neurology History of Present Illness 77 yo M with multiple medical comorbidities including HLD,HTN, NIDDM, COPD, Alzehiemers dementia, metastatic prostate ca. (on chemotherapy as of 07/30), CVA , and A-fib w/ RvR ( on Eliquis ) who arrives from [facility] with head injury 2/2 mechanical fall. Patient states that 30 minutes [employer] he was attempting to use the urinal and became lightheaded when standing and he fell. When attempting to grab the hand rail and stand up for a second time he fell again. Complains of posterior WALLS. Denies LOC, and was on the ground for 2- 3 minutes before nursing staff found patient and assisted him to wheelchair. Has been experiencing intermittent lightheadedness for the past 3-4 months upon standing. Normally ambulates without assistive devices. Denies neck/back/ext/ abdominal pain or trauma, tongue laceration, teeth avulsion, WALLS, N/V, vision change, tinnitus, new onset weakness, sensory disturbance. Denies fevers/chills , diarrhea, constipation. Denies alcohol use. Recent admission for BL scrotal orchiectomies (08/23) 2/[address] head completed in ER and reviewed. Did not show any intracranial bleeding. CT C spine reviewed and showed no acute Fx, grade 1 anterolistesis noted also iwht T2 complression, possibly chronic. Comfortable appearing this moring. Mental status at baseline. Neurologically stable. Active Medications Acetaminophen (Tylenol -) 650 mg PO Q6H PRN PRN Reason: PAIN Apixaban (Eliquis -) 5 mg PO BID [facility] Last Admin: 09/29/17 21:34 Dose: Not Given Artificial Tears (Artificial Tears) 1 drop OD BID [facility] Last Admin: 09/29/17 21:34 Dose: 1 drop Bicalutamide (Casodex -) 50 mg PO DAILY [facility] Last Admin: 09/29/17 10:17 Dose: 50 mg Diltiazem HCl (Cardizem Cd -) 180 mg PO DAILY [facility] Donepezil HCl (Aricept -) 10 mg PO HS [facility] Last Admin: 09/29/17 21:33 Dose: 10 mg Non-Formulary Medication (Nitrofurantoin Monohyd/M-Cryst [Nitrofurantoin [place]- Mcr 100 Mg]) 100 mg PO BID [facility] Pantoprazole Sodium (Protonix -) 40 mg PO DAILY [facility] Last Admin: 09/29/17 10:17 Dose: 40 mg Polyethylene Glycol (Miralax (For Daily Use) -) 17 gm PO DAILY [facility] Last Admin: 09/29/17 10:18 Dose: 17 grams Quetiapine Fumarate (Seroquel -) 25 mg PO HS [facility] Last Admin: 09/29/17 22:51 Dose: Not Given Thiamine HCl (Vitamin B1 -) 100 mg PO HS [facility] Last Admin: 09/29/17 21:33 Dose: 100 mg *Physical Exam Vital Signs Period Temp Pulse Resp BP Sys/Ching Pulse Ox Last 24 Hr 97.3 F-97.9 F 68-83 16-20 106-124/53-72 99-99 GENERAL: Awake, alert, and fully oriented, in no acute distress HEAD: 5 cm sup. L side occiptial superficial, vertical laceration, with no sub q involvement. 4 cm inf R sided occipital superficial, horizontal laceration, with no sub q involvement. Normocephalic EYES: PERRLA, EOMI, sclera anicteric, conjunctiva clear ENT: Auricles normal inspection, hearing grossly normal, nares patent, oropharynx clear without exudates. Moist mucosa. NECK: Normal ROM, supple, no lymphadenopathy, JVD, or masses LUNGS: No distress, speaks full sentences, clear to auscultation bilaterally HEART: Regular rate and rhythm, normal S1 and S2, no murmurs, rubs or gallops, peripheral pulses normal and equal bilaterally. ABDOMEN: Soft, nontender, normoactive bowel sounds. No guarding, no rebound. No masses EXTREMITIES : Normal inspection, Normal range of motion, no edema. No clubbing or cyanosis. NEUROLOGICAL: Cranial nerves II through XII grossly intact. Normal speech, no focal sensorimotor deficits. Absent dysmetria on FTN. SKIN: Warm, Dry, normal turgor, no rashes or lesions noted. CBCD WBC 10.5 K/mm3 (4.0-10.0) H 09/30/17 09:12 RBC 3.79 M/mm3 (4.00-5.60) L 09/30/17 09:12 Hgb 11.1 GM/dL (11.7-16.9) L 09/30/17 09:12 Hct 33.9 % (35.4-49) L 09/30/17 09:12 MCV 89.6 fl (80-96) 09/30/17 09:12 MCHC 32.6 g/dl (32.0-35.9) 09/30/17 09:12 RDW 12.7 % (11.9-15.9) 09/30/17 09:12 Plt Count 295 K/MM3 (134-434) 09/30/17 09:12 MPV 7.8 fl (7.5-11.1) 09/30/17 09:12 CMP Sodium 139 mmol/L (136-145) 09/29/17 09:00 Potassium 3.8 mmol/L (3.5-5.1) 09/29/17 09:00 Chloride 104 mmol/L (98-107) 09/29/17 09:00 Carbon Dioxide 28 mmol/L (21-32) 09/29/17 09:00 Anion Gap 7 (8-16) L 09/29/17 09:00 BUN 24 mg/dL (7-18) H 09/29/17 09:00 Creatinine 1.6 mg/dL (0.7-1.3) H 09/29/17 09:00 Creat Clearance w eGFR 42.35 (>60) 09/29/17 09:00 Calcium 8.9 mg/dL (8.5-10.1) 09/29/17 09:00 Total Bilirubin 0.4 mg/dL (0.2-1.0) D 09/29/17 09:00 AST 8 U/L (15-37) L D 09/29/17 09:00 ALT 10 U/L (12-78) L 09/29/17 09:00 Alkaline Phosphatase 88 U/L (45-117) 09/29/17 09:00 Total Protein 6.0 g/dl (6.4-8.2) L 09/29/17 09:00 Albumin 2.8 g/dl (3.4-5.0) L 09/29/17 09:[address] C spine reviewed Medical Decision Making 77 yo M with multiple medical comorbidities including HLD,HTN, NIDDM, COPD, Alzehiemers dementia, metastatic prostate ca. (on chemotherapy as of 07/30), CVA , and A-fib w/ RvR ( on Eliquis ) who arrives from [facility] with head injury 2/2 mechanical fall. Patient states that 30 minutes [employer] he was attempting to use the urinal and became lightheaded when standing and he fell. When attempting to grab the hand rail and stand up for a second time he fell again. Complains of posterior WALLS. Denies LOC, and was on the ground for 2- 3 minutes before nursing staff found patient and assisted him to wheelchair. Has been experiencing intermittent lightheadedness for the past 3-4 months upon standing. Normally ambulates without assistive devices. Denies neck/back/ext/ abdominal pain or trauma, tongue laceration, teeth avulsion, WALLS, N/V, vision change, tinnitus, new onset weakness, sensory disturbance. CT head completed in ER and reviewed. Did not show any intracranial bleeding. CT C spine reviewed and showed no acute Fx, grade 1 anterolistesis noted also with T2 complression, possibly chronic. Pain mgmt recommended. Physical therapy may be beneficial. Fall precautions. Laceration repaired, monitor for any infections. No intracranial bleeding, will not require AEDS, does not appear to be seizure event. Eliquis restarted, no bleeding. Neurologically stable.
[2017-09-30 09:58] LABS: ALBUMIN 2.8 g/dl (3.4-5.0); ANION GAP 8 (8-16); BILIRUBIN,TOTAL 0.3 mg/dL (0.2-1.0); BLOOD UREA NITROGEN 28 mg/dL (7-18); CALCIUM 9.1 mg/dL (8.5-10.1); CHLORIDE 104 mmol/L (98-107); CO2 27 mmol/L (21-32); CREATININE 1.7 mg/dL (0.7-1.3); GLUCOSE,RANDOM 175 mg/dL (74-106); POTASSIUM 4.1 mmol/L (3.5-5.1); SGOT/AST 9 U/L (15-37); SGPT/ALT 11 U/L (12-78); SODIUM 139 mmol/L (136-145); TOT PROT 6.1 g/dl (6.4-8.2)
[2017-09-30 09:59] LABS: ALK PHOS 90 U/L (45-117)
[2017-09-30] MEDS ORDERED: PT OWN MED DRAWER 7, Y5N ONE ×4 (11:20→22:27)
[2017-09-30] MEDS: ARTIFICIAL TEARS (POLYVINYL ALCOHOL 1.4%) OPTH DROPS OD SCH ×2 (11:21→23:14)
[2017-09-30] MEDS: APIXABAN 5 MG TABLET PO SCH ×2 (11:22→23:14)
[2017-09-30] MEDS: BICALUTAMIDE 50 MG TABLET (FP) PO SCH (11:22)
[2017-09-30] MEDS: PANTOPRAZOLE 40 MG TABLET (FP) PO SCH (11:22)
[2017-09-30] MEDS: POLYETHYLENE GLYCOL 3350 119 GM BTL PO SCH (11:23)
--- NOTE | 2017-09-30 11:24 | CON.GI ---
Consult Consult Specialty:: GI - History of Present Illness History of Present Illness: Covering for Dr. Cameron Chart reviewed. A 77 yom with HLD, HTN, NIDDM, COPD, Alzehiemers dementia, metastatic prostate ca. (on chemotherapy as of 07/30), CVA, and A-fib w/ RvR ( on Eliquis) who was admitted from a nursing facility with head injury 2/2 mechanical fall. Observed to have a significant weight loss. As per records, from 260 lb 6 month ago to 195 now. No hx of dysphagia, odynophagia, dyspepsia, jaundice, abdominal pain, nausea, vomiting, melenal hematochezia, changes in stool reported. Patient reports having good appetite. 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: No: Alzheimer's, CVA, Dementia, Migraine, Multiple Sclerosis, Peripheral Neuropathy, Parkinson's, Seizure, Syncope, TIA, Vertigo, Other Cardio/Vascular: Yes: AFIB, CAD, HTN, Hyperlipdemia Pulmonary: No: Asthma, Bronchitis, Cancer, COPD, O2 Dependent, Pneumonia, Previously Intubated, Pulmonary Embolus, Pulmonary Fibrosis, Sleep Apnea, Other Gastrointestinal: No: Ascites, Cancer, Constipation, Crohn's Disease, Diverticulitis, Diverticulosis, Esophageal Varices, Gastritis, GERD, GI Bleed, Hemorrhoids, Hiatal Hernia, Inflamatory Bowel Disease, Irritable Bowel Disease, Pancreatitis, Peptic Ulcer Disease, Ulcerative Colitis, Other Hepatobiliary: Yes: Cirrhosis, Cholelithiasis, Cholecystitis, Choledocholithiasis, Hepatitis A, Hepatitis B, Hepatitis C, Other Renal/: Yes: Renal Failure, Renal Inusuff, BPH, Cancer, Hematuria, Hemodialysis, Neurogenic Bladder, Renal Calculi, UTI, Other Endocrine: Yes: Diabetes Mellitus - Alcohol/Substance Use Hx Alcohol Use: No (past) - Smoking History Smoking history: Former smoker Have you smoked in the past 12 months: Yes Aproximately how many cigarettes per day: 20 - Social History Usual Living Arrangement: Care Home ADL: Independent 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, 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 Travel: No Home Medications - Allergies Allergies/Adverse Reactions: Allergies Allergy/AdvReac Type Severity Reaction Status Date / Time amoxicillin trihydrate Allergy Mild Verified 09/28/17 08:48 [From Augmentin] potassium clavulanate AdvReac Unknown Verified 09/28/17 08:48 [From Augmentin] - Home Medications Home Medications: Ambulatory Orders Aa/Hydrolyzed Collagen, Whey [Lps Neutral Flavor Liquid] 960 ml PO DAILY Acetaminophen 650 mg PO QID PRN 09/28/17 Apixaban [Eliquis] 5 mg PO BID 09/28/17 Bicalutamide [Casodex] 50 mg PO DAILY 09/28/17 Diltiazem HCl [Cardizem LA] 240 mg PO DAILY 09/28/17 Donepezil HCl [Aricept] 10 mg PO HS 09/28/17 Hypromellose 0.5% Opth Soln [Artificial Tears] 1 drop OD BID 09/28/17 Nitrofurantoin Monohyd/M-Cryst [Nitrofurantoin [place]-Mcr 100 mg] 100 mg PO BID Pantoprazole Sodium 40 mg PO DAILY 09/28/17 Polyethylene Glycol 3350 [Gavilax] 17 gm PO DAILY 09/28/17 Quetiapine Fumarate [Seroquel -] 25 mg PO HS 09/28/17 Thiamine HCl [B-1] 100 mg PO HS 09/28/17 Family Disease History - Family Disease History Family History: Unremarkable (non-contributory) Review of Systems Findings/Remarks: please refer to H&P and HPI Physical Exam-GI Vital Signs: Vital Signs Temperature 97.2 F L 09/30/17 11:09 Pulse Rate 71 09/30/17 11:09 Respiratory Rate 20 09/30/17 11:09 Blood Pressure 122/61 09/30/17 11:09 O2 Sat by Pulse Oximetry (%) 99 09/29/17 21:00 Constitutional: Yes: Well Nourished, No Distress, Calm Eyes: Yes: Conjunctiva Clear HENT: Yes: Atraumatic Neck: Yes: Supple Cardiovascular: Yes: Pulse Irregular Respiratory: Yes: Regular Gastrointestinal Inspection: Yes: Distention ...Auscultate: Yes: Normoactive Bowel Sounds ...Palpate: Yes: Soft. No: Firm/Rigid, Guarding, Mass ...Percussion: No: Fluid Wave Neurological: Yes: Alert Labs: CBC, BMP 09/30/17 09:12 09/30/17 09:12 INR, PTT INR 1.46 (0.82-1.09) H 09/28/17 09:55 CBCD WBC 10.5 K/mm3 (4.0-10.0) H 09/30/17 09:12 RBC 3.79 M/mm3 (4.00-5.60) L 09/30/17 09:12 Hgb 11.1 GM/dL (11.7-16.9) L 09/30/17 09:12 Hct 33.9 % (35.4-49) L 09/30/17 09:12 MCV 89.6 fl (80-96) 09/30/17 09:12 MCHC 32.6 g/dl (32.0-35.9) 09/30/17 09:12 RDW 12.7 % (11.9-15.9) 09/30/17 09:12 Plt Count 295 K/MM3 (134-434) 09/30/17 09:12 MPV 7.8 fl (7.5-11.1) 09/30/17 09:12 CMP Sodium 139 mmol/L (136-145) 09/30/17 09:12 Potassium 4.1 mmol/L (3.5-5.1) 09/30/17 09:12 Chloride 104 mmol/L (98-107) 09/30/17 09:12 Carbon Dioxide 27 mmol/L (21-32) 09/30/17 09:12 Anion Gap 8 (8-16) 09/30/17 09:12 BUN 28 mg/dL (7-18) H 09/30/17 09:12 Creatinine 1.7 mg/dL (0.7-1.3) H 09/30/17 09:12 Creat Clearance w eGFR 39.49 (>60) 09/30/17 09:12 Calcium 9.1 mg/dL (8.5-10.1) 09/30/17 09:12 Total Bilirubin 0.3 mg/dL (0.2-1.0) D 09/30/17 09:12 AST 9 U/L (15-37) L 09/30/17 09:12 ALT 11 U/L (12-78) L 09/30/17 09:12 Alkaline Phosphatase 90 U/L (45-117) 09/30/17 09:12 Total Protein 6.1 g/dl (6.4-8.2) L 09/30/17 09:12 Albumin 2.8 g/dl (3.4-5.0) L 09/30/17 09:12 Problem List - Problems (1) Weight loss Code(s): R63.4 - ABNORMAL WEIGHT LOSS Assessment/Plan A 77 yom with multiple medical issues with significant weight loss while maintaining fairly normal appetite. Suspect the weigh loss to be multifatorial given the active underlying conditions. R/o gastric, colon cancer. Plan EGD and colonsocopy tomorrow. Discussed with Pt and his daughter.
[2017-09-30] MEDS ORDERED: BISACODYL 5 MG TABLET.DR (FP) PO ONE (13:01)
[2017-09-30] MEDS: CEFTRIAXONE 1 G/50 ML PREMIX 50 ML IVPB SCH (15:00)
--- NOTE | 2017-09-30 15:27 | CON.CARD ---
Consult Consult Specialty:: Cardiology Referred by:: Dr. Joshua Reason for Consultation:: Pre-procedure cardiovascular evaluation - History of Present Illness Chief Complaint: Fall, inadvertent weight loss History of Present Illness: Patient is a 77 year old male well known to me with underlying history of atrial fibrillation on NOAC, COPD/emphysema, long cigarette smoking history, diverticulitis, hypertension, type 2 diabetes mellitus, hypercholesterolemia, history of acute on chronic kidney disease, prostate CA with obstructive nephropathy post orchiectomy referred from [facility] for closed head injury 2/2 positional dizziness and mechanical fall, HCT negative, planned for EGD/ colonoscopy for evaluation of inadvertent weight loss over last several months, Eliquis held pre-procedure. - History Source History Provided By: Patient, Medical Record Limitations to Obtaining History: No Limitations - Past Medical History BIT BENDER: No: Alzheimer's, CVA, Dementia, Migraine, Multiple Sclerosis, Peripheral Neuropathy, Parkinson's, Seizure, Syncope, TIA, Vertigo, Other Cardio/Vascular: Yes: AFIB, CAD, HTN, Hyperlipdemia Pulmonary: No: Asthma, Bronchitis, Cancer, COPD, O2 Dependent, Pneumonia, Previously Intubated, Pulmonary Embolus, Pulmonary Fibrosis, Sleep Apnea, Other Gastrointestinal: No: Ascites, Cancer, Constipation, Crohn's Disease, Diverticulitis, Diverticulosis, Esophageal Varices, Gastritis, GERD, GI Bleed, Hemorrhoids, Hiatal Hernia, Inflamatory Bowel Disease, Irritable Bowel Disease, Pancreatitis, Peptic Ulcer Disease, Ulcerative Colitis, Other Hepatobiliary: Yes: Cirrhosis, Cholelithiasis, Cholecystitis, Choledocholithiasis, Hepatitis A, Hepatitis B, Hepatitis C, Other Renal/: Yes: Renal Failure, Renal Inusuff, BPH, Cancer, Hematuria, Hemodialysis, Neurogenic Bladder, Renal Calculi, UTI, Other Endocrine: Yes: Diabetes Mellitus - Alcohol/Substance Use Hx Alcohol Use: No (past) - Smoking History Smoking history: Former smoker Have you smoked in the past 12 months: Yes Aproximately how many cigarettes per day: 20 - Social History Usual Living Arrangement: [facility] ADL: Independent 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, 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 Travel: No Home Medications - Allergies Allergies/Adverse Reactions: Allergies Allergy/AdvReac Type Severity Reaction Status Date / Time amoxicillin trihydrate Allergy Mild Verified 09/28/17 08:48 [From Augmentin] potassium clavulanate AdvReac Unknown Verified 09/28/17 08:48 [From Augmentin] - Home Medications Home Medications: Ambulatory Orders Aa/Hydrolyzed Collagen, Whey [Lps Neutral Flavor Liquid] 960 ml PO DAILY Acetaminophen 650 mg PO QID PRN 09/28/17 Apixaban [Eliquis] 5 mg PO BID 09/28/17 Bicalutamide [Casodex] 50 mg PO DAILY 09/28/17 Diltiazem HCl [Cardizem LA] 240 mg PO DAILY 09/28/17 Donepezil HCl [Aricept] 10 mg PO HS 09/28/17 Hypromellose 0.5% Opth Soln [Artificial Tears] 1 drop OD BID 09/28/17 Nitrofurantoin Monohyd/M-Cryst [Nitrofurantoin [place]-Mcr 100 mg] 100 mg PO BID Pantoprazole Sodium 40 mg PO DAILY 09/28/17 Polyethylene Glycol 3350 [Gavilax] 17 gm PO DAILY 09/28/17 Quetiapine Fumarate [Seroquel -] 25 mg PO HS 09/28/17 Thiamine HCl [B-1] 100 mg PO HS 09/28/17 Review of Systems - Review of Systems Constitutional: reports: Unintentional Wgt. Loss Neurological: reports: Dizziness, Unsteady Gait Vital Signs: Vital Signs Temperature 97.2 F L 09/30/17 11:09 Pulse Rate 71 09/30/17 11:09 Respiratory Rate 20 09/30/17 11:09 Blood Pressure 122/61 09/30/17 11:09 O2 Sat by Pulse Oximetry (%) 99 09/29/17 21:00 Constitutional: Yes: No Distress, Calm Neck: Yes: Supple Respiratory: Yes: Regular, CTA Bilaterally Gastrointestinal: Yes: Normal Bowel Sounds, Soft Cardiovascular: Yes: Pulse Irregular JVD: No Carotid Bruit: No Heart Sounds: Yes: S1, S2 Murmur: Yes: Systolic Murmur, Grade 1 Edema: No - Other Data Labs, Other Data: CBC, BMP 09/30/17 09:12 09/30/17 09:12 INR, PTT INR 1.46 (0.82-1.09) H 09/28/17 09:55 Afib @ 79 Ejection Fraction %: LVEF > or = 40 % Imaging - Results Chest X-ray: Report Reviewed (NAD) Cat Scan: Report Reviewed (HCT: No acute changes) Problem List - Problems (1) Fall Code(s): W19.XXXA - UNSPECIFIED FALL, INITIAL ENCOUNTER Qualifiers: Encounter type: subsequent encounter Qualified Code(s): W19.XXXD - Unspecified fall, subsequent encounter (2) Weight loss Code(s): R63.4 - ABNORMAL WEIGHT LOSS (3) Adenocarcinoma of prostate Code(s): C61 - MALIGNANT NEOPLASM OF PROSTATE (4) Atrial fibrillation Code(s): I48.91 - UNSPECIFIED ATRIAL FIBRILLATION Qualifiers: Atrial fibrillation type: persistent Qualified Code(s): I48.1 - Persistent atrial fibrillation (5) Chronic kidney disease (CKD) Code(s): N18.9 - CHRONIC KIDNEY DISEASE, UNSPECIFIED Qualifiers: Chronic kidney disease stage: stage 3 (moderate) Qualified Code(s): N18.3 - Chronic kidney disease, stage 3 (moderate) (6) Diastolic CHF Code(s): I50.30 - UNSPECIFIED DIASTOLIC (CONGESTIVE) HEART FAILURE Qualifiers: Congestive heart failure chronicity: chronic Qualified Code(s): I50.32 - Chronic diastolic (congestive) heart failure (7) HTN (hypertension) Code(s): I10 - ESSENTIAL (PRIMARY) HYPERTENSION Qualifiers: Hypertension type: essential hypertension Qualified Code(s): I10 - Essential (primary) hypertension (8) Hypercholesterolemia Code(s): E78.00 - PURE HYPERCHOLESTEROLEMIA, UNSPECIFIED (9) Hypothyroidism Code(s): E03.9 - HYPOTHYROIDISM, UNSPECIFIED Qualifiers: Hypothyroidism type: unspecified Qualified Code(s): E03.9 - Hypothyroidism , unspecified (10) Orthostatic hypotension Code(s): I95.1 - ORTHOSTATIC HYPOTENSION (11) Prostate cancer Code(s): C61 - MALIGNANT NEOPLASM OF PROSTATE (12) Status post orchiectomy Code(s): Z90.79 - ACQUIRED ABSENCE OF OTHER GENITAL ORGAN(S) (13) Pre-procedural cardiovascular examination Code(s): Z01.810 - ENCOUNTER FOR PREPROCEDURAL CARDIOVASCULAR EXAMINATION Assessment/Plan 1. Inadvertent weight loss r/o occult malignancy 2. Atrial fibrillation with variable ventricular response 3. Hypertension 4. Hypercholesterolemia 5. 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 Hypothyroidism 7. 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 Chronic kidney disease 9. History of diverticulitis 10. Positional dizziness post mechanical fall PLAN: 1. Continue Cardizem CD 180 qd 2. Hold Eliquis 5 bid pre-procedure, resume once post-op hemostasis achieved 3. May proceed with EGD/colonoscopy from CV standpoint without further testing 4. Thank you for consultative opportunity
[2017-09-30 17:10] LABS: URINE APPEARANCE CLOUDY; URINE BILIRUBIN NEGATIVE (NEGATIVE); URINE BLOOD 3+ (NEGATIVE); URINE COLOR YELLOW; URINE GLUCOSE (UA) NEGATIVE (NEGATIVE); URINE KETONE NEGATIVE (NEGATIVE); URINE NITRITE POSITIVE (NEGATIVE); URINE UROBILINOGEN NEGATIVE mg/dL (0.2-1.0)
[2017-09-30 17:21] LABS: URINE LEUK ESTERASE 3+ (NEGATIVE); URINE PROTEIN 1+ (NEGATIVE)
[2017-09-30 17:24] LABS: EPI CELLS RARE /HPF (FEW); URINE BACTERIA RARE /hpf (NONE SEEN); URINE MUCUS RARE
[2017-09-30] MEDS ORDERED: PEG 3350/NA SULF BICARB CL/KCL 4000 ML SOLN.RECON PO ONE (18:00)
[2017-09-30] MEDS: THIAMINE HCL 100 MG TABLET (FP) PO SCH (23:13)
[2017-09-30] MEDS: DONEPEZIL HCL 10 MG TABLET (FP) PO SCH (23:14)
[2017-09-30] MEDS: QUEtiapine FUMARATE 25 MG TABLET (FP) PO SCH (23:14)
--- NOTE | 2017-10-01 01:35 | EKG ---
Test Reason : Blood Pressure : / mmHG Vent. Rate : 079 BPM Atrial Rate : 441 BPM P-R Int : 000 ms QRS Dur : 084 ms QT Int : 360 ms P-R-T Axes : 000 -20 056 degrees QTc Int : 412 ms ATRIAL FIBRILLATION LOW VOLTAGE QRS ABNORMAL ECG WHEN COMPARED WITH ECG OF 28-SEP-2017 08:54, NO SIGNIFICANT CHANGE WAS FOUND Confirmed by SHERICE MCCLENDON MD ([id number]) on 10/01/2017 1:35:09 AM Referred By: Hang BLEVINS Confirmed By:SHERICE MCCLENDON MD
--- NOTE | 2017-10-01 01:45 | EKG ---
Test Reason : Blood Pressure : / mmHG Vent. Rate : 101 BPM Atrial Rate : 098 BPM P-R Int : 000 ms QRS Dur : 092 ms QT Int : 352 ms P-R-T Axes : 000 -23 053 degrees QTc Int : 456 ms ATRIAL FIBRILLATION WITH RAPID VENTRICULAR RESPONSE WITH PREMATURE VENTRICULAR OR ABERRANTLY CONDUCTED COMPLEXES LOW VOLTAGE QRS NONSPECIFIC ST ABNORMALITY ABNORMAL ECG WHEN COMPARED WITH ECG OF 21-AUG-2017 17:37, NO SIGNIFICANT CHANGE WAS FOUND Confirmed by SHERICE MCCLENDON MD ([id number]) on 10/01/2017 1:44:47 AM Referred By: Confirmed By:SHERICE MCCLENDON MD
[2017-10-01 06:06] LABS: SERUM IRON SATURATION 17 % (15-55); TOTAL IRON BINDING CAPACITY 173 ug/dL (250-450); UIBC 143 ug/dL (111-343)
--- NOTE | 2017-10-01 10:06 | PN ---
Progress Note (short form) - Note Progress Note: Neurology History of Present Illness 77 yo M with multiple medical comorbidities including HLD,HTN, NIDDM, COPD, Alzehiemers dementia, metastatic prostate ca. (on chemotherapy as of 07/30), CVA , and A-fib w/ RvR ( on Eliquis ) who arrives from [facility] with head injury 2/2 mechanical fall. 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 When attempting to grab the hand rail and stand up for a second time he fell again. Complains of posterior WALLS. Denies LOC, and was on the ground for 2- 3 minutes before nursing staff found patient and assisted him to wheelchair. Has been experiencing intermittent lightheadedness for the past 3-4 months upon standing. Normally ambulates without assistive devices. Denies neck/back/ext/ abdominal pain or trauma, tongue laceration, teeth avulsion, WALLS, N/V, vision change, tinnitus, new onset weakness, sensory disturbance. Denies fevers/chills , diarrhea, constipation. Denies alcohol use. Recent admission for BL scrotal orchiectomies (08/23) 2/[address] head completed in ER and reviewed. Did not show any intracranial bleeding. CT C spine reviewed and showed no acute Fx, grade 1 anterolistesis noted also with T2 compression, possibly chronic. Comfortable appearing for EGD/colonscopy. Cardiology note reviewed as well by Dr. Ayala. Mental status at baseline. Neurologically stable. Active Medications Acetaminophen (Tylenol -) 650 mg PO Q6H PRN PRN Reason: PAIN Apixaban (Eliquis -) 5 mg PO BID [facility] Last Admin: 09/30/17 23:14 Dose: 5 mg Artificial Tears (Artificial Tears) 1 drop OD BID [facility] Last Admin: 09/30/17 23:14 Dose: 1 drop Bicalutamide (Casodex -) 50 mg PO DAILY [facility] Last Admin: 09/30/17 11:22 Dose: 50 mg Diltiazem HCl (Cardizem Cd -) 180 mg PO DAILY [facility] Last Admin: 09/30/17 11:22 Dose: 180 mg Donepezil HCl (Aricept -) 10 mg PO HS [facility] Last Admin: 09/30/17 23:14 Dose: 10 mg CEFTRIAXONE 1 G/50 ML PREMIX (Ceftriaxone 1 Gm-D5w Bag) 50 mls @ 100 mls/hr IVPB DAILY [facility] Last Admin: 09/30/17 15:00 Dose: 100 mls/hr Pantoprazole Sodium (Protonix -) 40 mg PO DAILY [facility] Last Admin: 09/30/17 11:22 Dose: 40 mg Polyethylene Glycol (Miralax (For Daily Use) -) 17 gm PO DAILY [facility] Last Admin: 09/30/17 11:23 Dose: Not Given Quetiapine Fumarate (Seroquel -) 25 mg PO HS [facility] Last Admin: 09/30/17 23:14 Dose: 25 mg Thiamine HCl (Vitamin B1 -) 100 mg PO HS [facility] Last Admin: 09/30/17 23:13 Dose: 100 mg *Physical Exam Vital Signs Period Temp Pulse Resp BP Sys/Ching Pulse Ox Last 24 Hr 97 F-98.1 F 61-77 20-27 79-147/38-65 99 GENERAL: Awake, alert, and fully oriented, in no acute distress HEAD: 5 cm sup. L side occiptial superficial, vertical laceration, with no sub q involvement. 4 cm inf R sided occipital superficial, horizontal laceration, with no sub q involvement. Normocephalic EYES: PERRLA, EOMI, sclera anicteric, conjunctiva clear ENT: Auricles normal inspection, hearing grossly normal, nares patent, oropharynx clear without exudates. Moist mucosa. NECK: Normal ROM, supple, no lymphadenopathy, JVD, or masses LUNGS: No distress, speaks full sentences, clear to auscultation bilaterally HEART: Regular rate and rhythm, normal S1 and S2, no murmurs, rubs or gallops, peripheral pulses normal and equal bilaterally. ABDOMEN: Soft, nontender, normoactive bowel sounds. No guarding, no rebound. No masses EXTREMITIES : Normal inspection, Normal range of motion, no edema. No clubbing or cyanosis. NEUROLOGICAL: Cranial nerves II through XII grossly intact. Normal speech, no focal sensorimotor deficits. Absent dysmetria on FTN. SKIN: Warm, Dry, normal turgor, no rashes or lesions noted. CBCD WBC 10.5 K/mm3 (4.0-10.0) H 09/30/17 09:12 RBC 3.79 M/mm3 (4.00-5.60) L 09/30/17 09:12 Hgb 11.1 GM/dL (11.7-16.9) L 09/30/17 09:12 Hct 33.9 % (35.4-49) L 09/30/17 09:12 MCV 89.6 fl (80-96) 09/30/17 09:12 MCHC 32.6 g/dl (32.0-35.9) 09/30/17 09:12 RDW 12.7 % (11.9-15.9) 09/30/17 09:12 Plt Count 295 K/MM3 (134-434) 09/30/17 09:12 MPV 7.8 fl (7.5-11.1) 09/30/17 09:12 CMP Sodium 139 mmol/L (136-145) 09/30/17 09:12 Potassium 4.1 mmol/L (3.5-5.1) 09/30/17 09:12 Chloride 104 mmol/L (98-107) 09/30/17 09:12 Carbon Dioxide 27 mmol/L (21-32) 09/30/17 09:12 Anion Gap 8 (8-16) 09/30/17 09:12 BUN 28 mg/dL (7-18) H 09/30/17 09:12 Creatinine 1.7 mg/dL (0.7-1.3) H 09/30/17 09:12 Creat Clearance w eGFR 39.49 (>60) 09/30/17 09:12 Calcium 9.1 mg/dL (8.5-10.1) 09/30/17 09:12 Total Bilirubin 0.3 mg/dL (0.2-1.0) D 09/30/17 09:12 AST 9 U/L (15-37) L 09/30/17 09:12 ALT 11 U/L (12-78) L 09/30/17 09:12 Alkaline Phosphatase 90 U/L (45-117) 09/30/17 09:12 Total Protein 6.1 g/dl (6.4-8.2) L 09/30/17 09:12 Albumin 2.8 g/dl (3.4-5.0) L 09/30/17 09:[address] C spine reviewed Medical Decision Making 77 yo M with multiple medical comorbidities including HLD,HTN, NIDDM, COPD, Alzehiemers dementia, metastatic prostate ca. (on chemotherapy as of 07/30), CVA , and A-fib w/ RvR ( on Eliquis ) who arrives from [facility] with head injury 2/2 mechanical fall. 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 When attempting to grab the hand rail and stand up for a second time he fell again. Complains of posterior WALLS. Denies LOC, and was on the ground for 2- 3 minutes before nursing staff found patient and assisted him to wheelchair. Has been experiencing intermittent lightheadedness for the past 3-4 months upon standing. Normally ambulates without assistive devices. Denies neck/back/ext/ abdominal pain or trauma, tongue laceration, teeth avulsion, WALLS, N/V, vision change, tinnitus, new onset weakness, sensory disturbance. CT head completed in ER and reviewed. Did not show any intracranial bleeding. CT C spine reviewed and showed no acute Fx, grade 1 anterolistesis noted also with T2 complression, possibly chronic. Pain mgmt recommended. Physical therapy may be beneficial. Fall precautions. Laceration repaired, monitor for any infections. No intracranial bleeding, will not require AEDS, does not appear to be seizure event. Eliquis restarted, no bleeding. Neurologically stable. Cards mentioned holding AC preprocedure. Mental status at baseline.
--- NOTE | 2017-10-01 10:25 | PN ---
Progress Note, Physician Chief Complaint: Fall, orthostatic hypotension - Current Medication List Current Medications: Active Medications Acetaminophen (Tylenol -) 650 mg PO Q6H PRN PRN Reason: PAIN Apixaban (Eliquis -) 5 mg PO BID [facility] Last Admin: 09/30/17 23:14 Dose: 5 mg Artificial Tears (Artificial Tears) 1 drop OD BID [facility] Last Admin: 09/30/17 23:14 Dose: 1 drop Bicalutamide (Casodex -) 50 mg PO DAILY [facility] Last Admin: 09/30/17 11:22 Dose: 50 mg Diltiazem HCl (Cardizem Cd -) 180 mg PO DAILY [facility] Last Admin: 09/30/17 11:22 Dose: 180 mg Donepezil HCl (Aricept -) 10 mg PO [facility] Last Admin: 09/30/17 23:14 Dose: 10 mg CEFTRIAXONE 1 G/50 ML PREMIX (Ceftriaxone 1 Gm-D5w Bag) 50 mls @ 100 mls/hr IVPB DAILY [facility] Last Admin: 09/30/17 15:00 Dose: 100 mls/hr Pantoprazole Sodium (Protonix -) 40 mg PO DAILY [facility] Last Admin: 09/30/17 11:22 Dose: 40 mg Polyethylene Glycol (Miralax (For Daily Use) -) 17 gm PO DAILY [facility] Last Admin: 09/30/17 11:23 Dose: Not Given Quetiapine Fumarate (Seroquel -) 25 mg PO HS [facility] Last Admin: 09/30/17 23:14 Dose: 25 mg Thiamine HCl (Vitamin B1 -) 100 mg PO [facility] Last Admin: 09/30/17 23:13 Dose: 100 mg - Objective Vital Signs: Vital Signs Temperature 97 F L 10/01/17 09:10 Pulse Rate 75 10/01/17 09:10 Respiratory Rate 20 10/01/17 09:10 Blood Pressure 147/65 10/01/17 09:10 O2 Sat by Pulse Oximetry (%) 99 09/30/17 11:10 Constitutional: Yes: Well Nourished, No Distress, Calm Cardiovascular: Yes: Pulse Irregular Respiratory: Yes: Regular Labs: CBC, BMP 09/30/17 09:12 09/30/17 09:12 INR, PTT INR 1.46 (0.82-1.09) H 09/28/17 09:55 Problem List - Problems (1) Fall Assessment/Plan: -likely secondary to orthostatic hypotension -physical therapy Code(s): W19.XXXA - UNSPECIFIED FALL, INITIAL ENCOUNTER Qualifiers: Encounter type: subsequent encounter Qualified Code(s): W19.XXXD - Unspecified fall, subsequent encounter (2) Weight loss Code(s): R63.4 - ABNORMAL WEIGHT LOSS (3) SILAS (acute kidney injury) Assessment/Plan: -close to his baseline -renal consult Code(s): N17.9 - ACUTE KIDNEY FAILURE, UNSPECIFIED (4) Atrial fibrillation Assessment/Plan: -Chronic -on eliquis Code(s): I48.91 - UNSPECIFIED ATRIAL FIBRILLATION Qualifiers: Atrial fibrillation type: persistent Qualified Code(s): I48.1 - Persistent atrial fibrillation (5) Orthostatic hypotension Assessment/Plan: -similar episodes in the past -juice's BLLE -midodrine? Code(s): I95.1 - ORTHOSTATIC HYPOTENSION Assessment/Plan see problem list
[2017-10-01] MEDS: PANTOPRAZOLE 40 MG TABLET (FP) PO SCH ×2 (10:30→13:33)
[2017-10-01] MEDS: CEFTRIAXONE 1 G/50 ML PREMIX 50 ML IVPB SCH ×2 (10:30→15:36)
[2017-10-01] MEDS: POLYETHYLENE GLYCOL 3350 119 GM BTL PO SCH ×2 (10:30→13:46)
[2017-10-01] MEDS: ARTIFICIAL TEARS (POLYVINYL ALCOHOL 1.4%) OPTH DROPS OD SCH ×3 (10:30→21:54)
[2017-10-01] MEDS: BICALUTAMIDE 50 MG TABLET (FP) PO SCH ×2 (10:30→13:34)
[2017-10-01] MEDS: APIXABAN 5 MG TABLET PO SCH ×3 (10:30→21:30)
--- NOTE | 2017-10-01 11:37 | PN ---
Progress Note (short form) - Note Progress Note: ID Consult dictated 77 y/o male admitted s/p mechanical fall, head trauma without LOC. Found to have pyuria Recurrent UTI/ Possible sepsis secondary to UTI Leukocytosis Prostate ca Hx obstructive uropathy/ bilateral ureteral stents Azotemia PCN allergy Obatin BC, Urine c/s Pending c/s empiric ceftriaxone
[2017-10-01] MEDS ORDERED: PROPOFOL 20 ML ONE ×2 (11:46)
[2017-10-01] MEDS ORDERED: BISACODYL 5 MG TABLET.DR (FP) PO ONE ×2 (12:05→16:00)
[2017-10-01] MEDS ORDERED: PEG 3350/NA SULF BICARB CL/KCL 4000 ML SOLN.RECON PO ONE (12:05)
--- NOTE | 2017-10-01 12:05 | PROC ---
Endoscopy Procedure Endoscopy procedure completed. Please see scanned procedure report. normal EGD inadequate colon prep. Repeat colonoscopy in am. Colon prep today
--- NOTE | 2017-10-01 12:29 | PN ---
Progress Note (short form) - Note Progress Note: Came to see pt, was in Endoscopy Labs reviewed will follow up Donta Carmona DO
--- NOTE | 2017-10-01 12:44 | PN ---
Progress Note (short form) - Note Progress Note: left msg with pt's daughter re egd and attempted colonoscopy Problem List - Problems (1) Weight loss Code(s): R63.4 - ABNORMAL WEIGHT LOSS
--- NOTE | 2017-10-01 13:25 | CONS ---
INFECTIOUS DISEASE CONSULTATION DATE OF CONSULTATION: DATE OF DICTATION: 10/01/2017 REASON FOR CONSULTATION: The patient is a 77-year-old male who is evaluated for recurrent urinary tract infection. HISTORY OF PRESENT ILLNESS: He was admitted to the hospital on September 28, 2017, after a mechanical fall with head trauma. No loss of consciousness was reported. He was admitted to the hospital where evaluation revealed pyuria and an elevated white blood cell count. Cultures were obtained, and he was empirically treated with ceftriaxone. The patient is awake and alert. He is mildly confused, does not give a reliable history. He denies any dysuria or hematuria. No suprapubic or flank tenderness. He had a similar presentation within the last year. Cultures in the past have grown coagulase-negative staphylococcus. He has also had a history of significant weight loss, for which he is to undergo a colonoscopy. PAST MEDICAL HISTORY: Positive for stroke, dementia, atrial fibrillation, hypertension, hyperlipidemia, [id number]-ugkrjrdvo diabetes mellitus, COPD, history of metastatic prostate cancer status post chemotherapy and orchiectomy. He has had a history of acute kidney injury in the past which required temporary hemodialysis. He was also diagnosed in the past with ureteral obstruction requiring ureteral stents. PAST SURGICAL HISTORY: Status post orchiectomy. ALLERGIES: AMOXICILLIN. Patient is unaware of the nature of the AMOXICILLIN ALLERGY. MEDICATIONS AT HOME: Include Aricept, thiamine, Seroquel, Cardizem, Casodex. SOCIAL HISTORY: [facility] in a [facility] facility. No active tobacco or alcohol use. SYSTEMS REVIEW: Neurologic: Positive for stroke and dementia. Cardiac: Negative chest pain and palpitations. Respiratory: Negative cough or sputum production. Gastrointestinal: Negative vomiting or diarrhea. Genitourinary: As per HPI. LABORATORY DATA: White count 10.5, hematocrit 33.9, platelet count 295. BUN 28, creatinine 1.7. Total bilirubin 0.3, alkaline phosphatase 90, AST 9. Urinalysis: White cells 805. Cultures pending. PHYSICAL EXAMINATION: General: He is awake. He appears mildly confused. Vital Signs: Temperature 97; blood pressure 147/65; pulse 75, regular; respirations 20 per minute. HEENT: Sclerae are anicteric. Heart: Sounds S1, S2. Irregular. Lungs: Clear. Abdomen: Soft, obese. No tenderness elicited. No mass, rebound, or rigidity. Extremities: Negative for edema. IMPRESSION: A 77-year-old male admitted status post mechanical fall, head trauma without loss of consciousness, found to have pyuria. 1. Recurrent urinary tract infection/possible sepsis secondary to urinary tract infection. 2. Leukocytosis. 3. History of obstructive uropathy. 4. Metastatic prostate cancer. 5. PENICILLIN allergy. 6. Azotemia. Await urine culture. Obtain blood cultures. Empiric antibiotic coverage with ceftriaxone. Patient has tolerated ceftriaxone in the past. Further recommendations pending cultures. Will follow. Thank you for the kind referral. BETTIE SHEARER M.D. [id number]
[2017-10-01] MEDS ORDERED: PT OWN MED DRAWER 7, Y5N ONE ×4 (13:27→20:37)
--- NOTE | 2017-10-01 13:53 | PN ---
Progress Note, Physician Chief Complaint: Having EGD/colonoscopy History of Present Illness: Patient was seen and endo during study Currently sedated - Current Medication List Current Medications: Active Medications Acetaminophen (Tylenol -) 650 mg PO Q6H PRN PRN Reason: PAIN Apixaban (Eliquis -) 5 mg PO BID [facility] Last Admin: 10/01/17 13:33 Dose: 5 mg Artificial Tears (Artificial Tears) 1 drop OD BID [facility] Last Admin: 10/01/17 13:45 Dose: 1 drop Bicalutamide (Casodex -) 50 mg PO DAILY [facility] Last Admin: 10/01/17 13:34 Dose: 50 mg Bisacodyl (Dulcolax -) 20 mg PO ONCE ONE Stop: 10/01/17 12:06 Diltiazem HCl (Cardizem Cd -) 180 mg PO DAILY [facility] Last Admin: 10/01/17 13:35 Dose: 180 mg CEFTRIAXONE 1 G/50 ML PREMIX (Ceftriaxone 1 Gm-D5w Bag) 50 mls @ 100 mls/hr IVPB DAILY [facility] Last Admin: 10/01/17 10:30 Dose: Not Given Pantoprazole Sodium (Protonix -) 40 mg PO DAILY [facility] Last Admin: 10/01/17 13:33 Dose: 40 mg Polyethylene Glycol (Miralax (For Daily Use) -) 17 gm PO DAILY [facility] Last Admin: 10/01/17 13:46 Dose: 17 grams Polyethylene Glycol/Electrolytes (Golytely Solution -) 4,000 ml PO ONCE ONE Stop: 10/01/17 12:06 Thiamine HCl (Vitamin B1 -) 100 mg PO HS [facility] Last Admin: 09/30/17 23:13 Dose: 100 mg - Objective Vital Signs: Vital Signs Temperature 97.3 F L 10/01/17 13:07 Pulse Rate 81 10/01/17 13:07 Respiratory Rate 20 10/01/17 13:07 Blood Pressure 142/84 10/01/17 13:07 O2 Sat by Pulse Oximetry (%) 98 10/01/17 13:07 Cardiovascular: Yes: Pulse Irregular, S1, S2 Respiratory: Yes: Diminished Gastrointestinal: Yes: Soft. No: Tenderness Edema: No Labs: CBC, BMP 09/30/17 09:12 09/30/17 09:12 Problem List - Problems (1) Fall Code(s): W19.XXXA - UNSPECIFIED FALL, INITIAL ENCOUNTER Qualifiers: Encounter type: subsequent encounter Qualified Code(s): W19.XXXD - Unspecified fall, subsequent encounter (2) Pre-procedural cardiovascular examination Code(s): Z01.810 - ENCOUNTER FOR PREPROCEDURAL CARDIOVASCULAR EXAMINATION (3) Weight loss Code(s): R63.4 - ABNORMAL WEIGHT LOSS (4) Asbestos-induced pleural plaque Code(s): J92.0 - PLEURAL PLAQUE WITH PRESENCE OF ASBESTOS (5) Atrial fibrillation Code(s): I48.91 - UNSPECIFIED ATRIAL FIBRILLATION Qualifiers: Atrial fibrillation type: persistent Qualified Code(s): I48.1 - Persistent atrial fibrillation (6) CVA (cerebral infarction) Code(s): I63.9 - CEREBRAL INFARCTION, UNSPECIFIED Qualifiers: Cerebral infarction mechanism: unspecified mechanism Qualified Code(s): I63.9 - Cerebral infarction, unspecified (7) Chronic kidney disease (CKD) Code(s): N18.9 - CHRONIC KIDNEY DISEASE, UNSPECIFIED Qualifiers: Chronic kidney disease stage: stage 3 (moderate) Qualified Code(s): N18.3 - Chronic kidney disease, stage 3 (moderate) (8) Diabetes Code(s): E11.9 - TYPE 2 DIABETES MELLITUS WITHOUT COMPLICATIONS Qualifiers: Diabetes mellitus type: type 2 Diabetes mellitus complication status: without complication (9) Generalized weakness Code(s): R53.1 - WEAKNESS (10) HTN (hypertension) Code(s): I10 - ESSENTIAL (PRIMARY) HYPERTENSION Qualifiers: Hypertension type: essential hypertension Qualified Code(s): I10 - Essential (primary) hypertension (11) Hypercholesterolemia Code(s): E78.00 - PURE HYPERCHOLESTEROLEMIA, UNSPECIFIED (12) Hypothyroidism Code(s): E03.9 - HYPOTHYROIDISM, UNSPECIFIED Qualifiers: Hypothyroidism type: unspecified Qualified Code(s): E03.9 - Hypothyroidism , unspecified Assessment/Plan 1. Inadvertent weight loss rule out occult malignancy 2. Atrial fibrillation with variable ventricular response 3. Hypertension 4. Hypercholesterolemia 5. 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 Hypothyroidism 7. 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 Chronic kidney disease 9. History of diverticulitis 10. Positional dizziness post mechanical fall PLAN: 1. Continue Cardizem CD 180 qd 2. Hold Eliquis 5 bid pre-procedure and resume once post-op hemostasis achieved 3. EGD/colonoscopy result to follow Further plans are to follow Han Nowak MD
[2017-10-01] MEDS: THIAMINE HCL 100 MG TABLET (FP) PO SCH (21:30)
[2017-10-02] MEDS ORDERED: LIDOCAINE HCL/PF 2% SDV 5ML VIAL ONE (08:02)
[2017-10-02] MEDS ORDERED: PROPOFOL 20 ML ONE ×3 (08:02)
--- NOTE | 2017-10-02 09:45 | PROC ---
Endoscopy Procedure Endoscopy procedure completed. Please see scanned procedure report. 5 large colon polyps and diverticulosis were found. The center of the 3 cm polyp in the descending colon appeared to be anchored to the deep layers of the colon wall and thus could not be completely lifted with submucosal injection of normal saline. The resection therefore was incomplete. Await pathology results. Surgical consultation. Repeat surveillance colonoscopy in 6 months.
[2017-10-02] MEDS ORDERED: FLU VACCINE QUAD 60 MCG/0.5 ML (MDV 17-18) IM ONE (10:00)
--- NOTE | 2017-10-02 10:31 | PN ---
Progress Note (short form) - Note Progress Note: Neurology History of Present Illness 77 yo M with multiple medical comorbidities including HLD,HTN, NIDDM, COPD, Alzehiemers dementia, metastatic prostate ca. (on chemotherapy as of 07/30), CVA , and A-fib w/ RvR ( on Eliquis ) who arrives from [facility]/ [facility] with head injury 2/2 mechanical fall. 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 When attempting to grab the hand rail and stand up for a second time he fell again. Complains of posterior WALLS. Denies LOC, and was on the ground for 2- 3 minutes before nursing staff found patient and assisted him to wheelchair. Has been experiencing intermittent lightheadedness for the past 3-4 months upon standing. Normally ambulates without assistive devices. Denies neck/back/ext/ abdominal pain or trauma, tongue laceration, teeth avulsion, WALLS, N/V, vision change, tinnitus, new onset weakness, sensory disturbance. Denies fevers/chills , diarrhea, constipation. Denies alcohol use. Recent admission for BL scrotal orchiectomies (08/23) 2/[address] head completed in ER and reviewed. Did not show any intracranial bleeding. CT C spine reviewed and showed no acute Fx, grade 1 anterolistesis noted also with T2 compression, possibly chronic. EGD/colonscopy this AM, patient asking for food. Mental status at baseline. Neurologically stable. Active Medications Generic Name Dose Route Start Last Admin Trade Name Freq PRN Reason Stop Dose Admin Acetaminophen 650 mg 09/28/17 15:54 Tylenol - PO Q6H PRN PAIN Apixaban 5 mg 09/29/17 16:00 10/01/17 21:30 Eliquis - PO 5 mg BID [facility] Administration Artificial Tears 1 drop 09/28/17 22:00 10/01/17 21:54 Artificial Tears OD 1 drop BID [facility] Administration Bicalutamide 50 mg 09/29/17 10:00 10/01/17 13:34 Casodex - PO 50 mg DAILY [facility] Administration Diltiazem HCl 180 mg 09/30/17 10:00 10/01/17 13:35 Cardizem Cd - PO 180 mg DAILY [facility] Administration CEFTRIAXONE 1 G/50 ML PREMIX 50 mls @ 100 mls/hr 09/30/17 14:45 10/01/17 15: 36 Ceftriaxone 1 Gm-D5w Bag IVPB 100 mls/hr DAILY [facility] Administration Pantoprazole Sodium 40 mg 09/29/17 10:00 10/01/17 13:33 Protonix - PO 40 mg DAILY [facility] Administration Polyethylene Glycol 17 gm 09/29/17 10:00 10/01/17 13:46 Miralax (For Daily Use) - PO 17 grams DAILY [facility] Administration Thiamine HCl 100 mg 09/28/17 22:00 10/01/17 21:30 Vitamin B1 - PO 100 mg HS [facility] Administration *Physical Exam Vital Signs Period Temp Pulse Resp BP Sys/Ching Pulse Ox Last 24 Hr 97.3 F-98.6 F 62-83 14-22 80-156/34-96 97-100 GENERAL: Awake, alert, and fully oriented, in no acute distress HEAD: 5 cm sup. L side occiptial superficial, vertical laceration, with no sub q involvement. 4 cm inf R sided occipital superficial, horizontal laceration, with no sub q involvement. Normocephalic EYES: PERRLA, EOMI, sclera anicteric, conjunctiva clear ENT: Auricles normal inspection, hearing grossly normal, nares patent, oropharynx clear without exudates. Moist mucosa. NECK: Normal ROM, supple, no lymphadenopathy, JVD, or masses LUNGS: No distress, speaks full sentences, clear to auscultation bilaterally HEART: Regular rate and rhythm, normal S1 and S2, no murmurs, rubs or gallops, peripheral pulses normal and equal bilaterally. ABDOMEN: Soft, nontender, normoactive bowel sounds. No guarding, no rebound. No masses EXTREMITIES : Normal inspection, Normal range of motion, no edema. No clubbing or cyanosis. NEUROLOGICAL: Cranial nerves II through XII grossly intact. Normal speech, no focal sensorimotor deficits. Absent dysmetria on FTN. SKIN: Warm, Dry, normal turgor, no rashes or lesions noted. CBCD WBC 10.5 K/mm3 (4.0-10.0) H 09/30/17 09:12 RBC 3.79 M/mm3 (4.00-5.60) L 09/30/17 09:12 Hgb 11.1 GM/dL (11.7-16.9) L 09/30/17 09:12 Hct 33.9 % (35.4-49) L 09/30/17 09:12 MCV 89.6 fl (80-96) 09/30/17 09:12 MCHC 32.6 g/dl (32.0-35.9) 09/30/17 09:12 RDW 12.7 % (11.9-15.9) 09/30/17 09:12 Plt Count 295 K/MM3 (134-434) 09/30/17 09:12 MPV 7.8 fl (7.5-11.1) 09/30/17 09:12 CMP Sodium 139 mmol/L (136-145) 09/30/17 09:12 Potassium 4.1 mmol/L (3.5-5.1) 09/30/17 09:12 Chloride 104 mmol/L (98-107) 09/30/17 09:12 Carbon Dioxide 27 mmol/L (21-32) 09/30/17 09:12 Anion Gap 8 (8-16) 09/30/17 09:12 BUN 28 mg/dL (7-18) H 09/30/17 09:12 Creatinine 1.7 mg/dL (0.7-1.3) H 09/30/17 09:12 Creat Clearance w eGFR 39.49 (>60) 09/30/17 09:12 Calcium 9.1 mg/dL (8.5-10.1) 09/30/17 09:12 Total Bilirubin 0.3 mg/dL (0.2-1.0) D 09/30/17 09:12 AST 9 U/L (15-37) L 09/30/17 09:12 ALT 11 U/L (12-78) L 09/30/17 09:12 Alkaline Phosphatase 90 U/L (45-117) 09/30/17 09:12 Total Protein 6.1 g/dl (6.4-8.2) L 09/30/17 09:12 Albumin 2.8 g/dl (3.4-5.0) L 09/30/17 09:[address] C spine reviewed Medical Decision Making 77 yo M with multiple medical comorbidities including HLD,HTN, NIDDM, COPD, Alzehiemers dementia, metastatic prostate ca. (on chemotherapy as of 07/30), CVA , and A-fib w/ RvR ( on Eliquis ) who arrives from [facility]/ [facility] with head injury 2/2 mechanical fall. 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 When attempting to grab the hand rail and stand up for a second time he fell again. Complains of posterior WALLS. Denies LOC, and was on the ground for 2- 3 minutes before nursing staff found patient and assisted him to wheelchair. Has been experiencing intermittent lightheadedness for the past 3-4 months upon standing. Normally ambulates without assistive devices. Denies neck/back/ext/ abdominal pain or trauma, tongue laceration, teeth avulsion, WALLS, N/V, vision change, tinnitus, new onset weakness, sensory disturbance. CT head completed in ER and reviewed. Did not show any intracranial bleeding. CT C spine reviewed and showed no acute Fx, grade 1 anterolistesis noted also with T2 complression, possibly chronic. Pain mgmt recommended. Physical therapy may be beneficial. Fall precautions. Laceration repaired, monitor for any infections. No intracranial bleeding, will not require AEDS, does not appear to be seizure event. Colonscopy this AM. Neurologically stable. Mental status at baseline.
--- NOTE | 2017-10-02 10:42 | PN ---
Progress Note, Physician Chief Complaint: Fall, orthostatic hypotension History of Present Illness: NAD, in bed had EGD yesterday had colonoscopy today-5 large colon polyps and diverticulosis were found. The center of the 3 cm polyp in the descending colon appeared to be anchored to the deep layers of the colon wall and thus could not be completely lifted with submucosal injection of normal saline. The resection therefore was incomplete. - Current Medication List Current Medications: Active Medications Acetaminophen (Tylenol -) 650 mg PO Q6H PRN PRN Reason: PAIN Apixaban (Eliquis -) 5 mg PO BID [facility] Last Admin: 10/01/17 21:30 Dose: 5 mg Artificial Tears (Artificial Tears) 1 drop OD BID [facility] Last Admin: 10/01/17 21:54 Dose: 1 drop Bicalutamide (Casodex -) 50 mg PO DAILY [facility] Last Admin: 10/01/17 13:34 Dose: 50 mg Diltiazem HCl (Cardizem Cd -) 180 mg PO DAILY [facility] Last Admin: 10/01/17 13:35 Dose: 180 mg CEFTRIAXONE 1 G/50 ML PREMIX (Ceftriaxone 1 Gm-D5w Bag) 50 mls @ 100 mls/hr IVPB DAILY [facility] Last Admin: 10/01/17 15:36 Dose: 100 mls/hr Pantoprazole Sodium (Protonix -) 40 mg PO DAILY [facility] Last Admin: 10/01/17 13:33 Dose: 40 mg Polyethylene Glycol (Miralax (For Daily Use) -) 17 gm PO DAILY [facility] Last Admin: 10/01/17 13:46 Dose: 17 grams Thiamine HCl (Vitamin B1 -) 100 mg PO HS [facility] Last Admin: 10/01/17 21:30 Dose: 100 mg - Objective Vital Signs: Vital Signs Temperature 98.1 F 10/02/17 09:26 Pulse Rate 76 10/02/17 09:56 Respiratory Rate 14 10/02/17 09:56 Blood Pressure 133/64 10/02/17 09:56 O2 Sat by Pulse Oximetry (%) 100 10/02/17 09:56 Constitutional: Yes: Well Nourished, No Distress, Calm Cardiovascular: Yes: Regular Rate and Rhythm Respiratory: Yes: Regular Gastrointestinal: Yes: Normal Bowel Sounds Musculoskeletal: Yes: Muscle Weakness Extremities: Yes: WNL Edema: No Peripheral Pulses WNL: Yes Neurological: Yes: Alert, Pre-Existing Deficit Psychiatric: Yes: Alert Labs: CBC, BMP 09/30/17 09:12 09/30/17 09:12 INR, PTT INR 1.46 (0.82-1.09) H 09/28/17 09:55 Problem List - Problems (1) Fall Assessment/Plan: -likely secondary to orthostatic hypotension -physical therapy Code(s): W19.XXXA - UNSPECIFIED FALL, INITIAL ENCOUNTER Qualifiers: Encounter type: subsequent encounter Qualified Code(s): W19.XXXD - Unspecified fall, subsequent encounter (2) Weight loss Assessment/Plan: -EGD and colonoscopy -secondary to disease process -r/o metastatic disease due to history of prostate cancer Code(s): R63.4 - ABNORMAL WEIGHT LOSS (3) SILAS (acute kidney injury) Assessment/Plan: -close to his baseline -renal consult Code(s): N17.9 - ACUTE KIDNEY FAILURE, UNSPECIFIED (4) Atrial fibrillation Assessment/Plan: -Chronic -eliquis on hold for hemicolectomy Code(s): I48.91 - UNSPECIFIED ATRIAL FIBRILLATION Qualifiers: Atrial fibrillation type: persistent Qualified Code(s): I48.1 - Persistent atrial fibrillation (5) Orthostatic hypotension Assessment/Plan: -similar episodes in the past -juice's BLLE -midodrine -cardizem decreased from 240 to 180 Code(s): I95.1 - ORTHOSTATIC HYPOTENSION Assessment/Plan see problem list
[2017-10-02] MEDS: ARTIFICIAL TEARS (POLYVINYL ALCOHOL 1.4%) OPTH DROPS OD SCH ×2 (10:57→22:12)
[2017-10-02] MEDS: APIXABAN 5 MG TABLET PO SCH (10:58)
[2017-10-02] MEDS: PANTOPRAZOLE 40 MG TABLET (FP) PO SCH (10:58)
[2017-10-02] MEDS: BICALUTAMIDE 50 MG TABLET (FP) PO SCH (10:58)
[2017-10-02] MEDS: POLYETHYLENE GLYCOL 3350 119 GM BTL PO SCH (10:59)
[2017-10-02] MEDS: CEFTRIAXONE 1 G/50 ML PREMIX 50 ML IVPB SCH (10:59)
--- NOTE | 2017-10-02 12:28 | PN ---
Progress Note, Physician History of Present Illness: Normal EGD, colonoscopy post polypectomy, positional dizziness improved off psychotropic agents. - Current Medication List Current Medications: Active Medications Acetaminophen (Tylenol -) 650 mg PO Q6H PRN PRN Reason: PAIN Apixaban (Eliquis -) 5 mg PO BID [facility] Last Admin: 10/02/17 10:58 Dose: 5 mg Artificial Tears (Artificial Tears) 1 drop OD BID [facility] Last Admin: 10/02/17 10:57 Dose: 1 drop Bicalutamide (Casodex -) 50 mg PO DAILY [facility] Last Admin: 10/02/17 10:58 Dose: 50 mg Diltiazem HCl (Cardizem Cd -) 180 mg PO DAILY [facility] Last Admin: 10/02/17 10:58 Dose: 180 mg CEFTRIAXONE 1 G/50 ML PREMIX (Ceftriaxone 1 Gm-D5w Bag) 50 mls @ 100 mls/hr IVPB DAILY [facility] Last Admin: 10/02/17 10:59 Dose: 100 mls/hr Pantoprazole Sodium (Protonix -) 40 mg PO DAILY [facility] Last Admin: 10/02/17 10:58 Dose: 40 mg Polyethylene Glycol (Miralax (For Daily Use) -) 17 gm PO DAILY [facility] Last Admin: 10/02/17 10:59 Dose: Not Given Thiamine HCl (Vitamin B1 -) 100 mg PO HS [facility] Last Admin: 10/01/17 21:30 Dose: 100 mg - Objective Vital Signs: Vital Signs Temperature 97.9 F 10/02/17 11:00 Pulse Rate 89 10/02/17 11:00 Respiratory Rate 18 10/02/17 11:00 Blood Pressure 128/63 10/02/17 11:00 O2 Sat by Pulse Oximetry (%) 98 10/02/17 11:00 Constitutional: Yes: No Distress, Calm Neck: Yes: Supple Cardiovascular: Yes: Pulse Irregular Respiratory: Yes: Regular, Diminished Gastrointestinal: Yes: Normal Bowel Sounds, Soft Edema: No Labs: CBC, BMP 09/30/17 09:12 09/30/17 09:12 INR, PTT INR 1.46 (0.82-1.09) H 09/28/17 09:55 Problem List - Problems (1) Fall Code(s): W19.XXXA - UNSPECIFIED FALL, INITIAL ENCOUNTER Qualifiers: Encounter type: subsequent encounter Qualified Code(s): W19.XXXD - Unspecified fall, subsequent encounter (2) Weight loss Code(s): R63.4 - ABNORMAL WEIGHT LOSS (3) Adenocarcinoma of prostate Code(s): C61 - MALIGNANT NEOPLASM OF PROSTATE (4) Atrial fibrillation Code(s): I48.91 - UNSPECIFIED ATRIAL FIBRILLATION Qualifiers: Atrial fibrillation type: persistent Qualified Code(s): I48.1 - Persistent atrial fibrillation (5) Chronic kidney disease (CKD) Code(s): N18.9 - CHRONIC KIDNEY DISEASE, UNSPECIFIED Qualifiers: Chronic kidney disease stage: stage 3 (moderate) Qualified Code(s): N18.3 - Chronic kidney disease, stage 3 (moderate) (6) Diastolic CHF Code(s): I50.30 - UNSPECIFIED DIASTOLIC (CONGESTIVE) HEART FAILURE Qualifiers: Congestive heart failure chronicity: chronic Qualified Code(s): I50.32 - Chronic diastolic (congestive) heart failure (7) HTN (hypertension) Code(s): I10 - ESSENTIAL (PRIMARY) HYPERTENSION Qualifiers: Hypertension type: essential hypertension Qualified Code(s): I10 - Essential (primary) hypertension (8) Hypercholesterolemia Code(s): E78.00 - PURE HYPERCHOLESTEROLEMIA, UNSPECIFIED (9) Hypothyroidism Code(s): E03.9 - HYPOTHYROIDISM, UNSPECIFIED Qualifiers: Hypothyroidism type: unspecified Qualified Code(s): E03.9 - Hypothyroidism , unspecified (10) Orthostatic hypotension Code(s): I95.1 - ORTHOSTATIC HYPOTENSION (11) Prostate cancer Code(s): C61 - MALIGNANT NEOPLASM OF PROSTATE (12) Status post orchiectomy Code(s): Z90.79 - ACQUIRED ABSENCE OF OTHER GENITAL ORGAN(S) Assessment/Plan 1. Inadvertent weight loss r/o occult malignancy, post polypectomy 2. Atrial fibrillation with variable ventricular response 3. Hypertension 4. Hypercholesterolemia 5. 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 Hypothyroidism 7. 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 Chronic kidney disease 9. History of diverticulitis 10. Positional dizziness post mechanical fall PLAN: 1. Continue Cardizem CD 180 qd, recheck orthostatic VS 2. Resumed Eliquis 5 bid now that post-op hemostasis achieved 3. F/u pathology
[2017-10-02 13:05] VITALS: BMI 23.7
--- NOTE | 2017-10-02 13:05 | CON.NEP ---
Consult Consult Specialty:: Nephrology Referred by:: Dr. Castro Reason for Consultation:: CKD - History of Present Illness Chief Complaint: Fall History of Present Illness: This is a 77 year old gentleman with PMhx fo CKD, SILAS (now improved), Hypertension, DM, COPD, Dementia, Prostate Ca, CVA, Afib with RVR who presented with fall at [facility] and found to have weight loss with Cr of 1.7. Pt is awake and alert and has no acute complaints. S/p Colonoscopy yesterday. Pt reports good urine output. No Abd pain, flank pain. No hematuria. No chest pain, sob, fever, chills. Pt also noted to have possible UTI and is on Abx. - History Source History Provided By: Patient Limitations to Obtaining History: No Limitations - Past Medical History RADIO ANNOUNCER: No: Alzheimer's, CVA, Dementia, Migraine, Multiple Sclerosis, Peripheral Neuropathy, Parkinson's, Seizure, Syncope, TIA, Vertigo, Other Cardio/Vascular: Yes: AFIB, CAD, HTN, Hyperlipdemia Pulmonary: No: Asthma, Bronchitis, Cancer, COPD, O2 Dependent, Pneumonia, Previously Intubated, Pulmonary Embolus, Pulmonary Fibrosis, Sleep Apnea, Other Gastrointestinal: No: Ascites, Cancer, Constipation, Crohn's Disease, Diverticulitis, Diverticulosis, Esophageal Varices, Gastritis, GERD, GI Bleed, Hemorrhoids, Hiatal Hernia, Inflamatory Bowel Disease, Irritable Bowel Disease, Pancreatitis, Peptic Ulcer Disease, Ulcerative Colitis, Other Hepatobiliary: Yes: Cirrhosis, Cholelithiasis, Cholecystitis, Choledocholithiasis, Hepatitis A, Hepatitis B, Hepatitis C, Other Renal/: Yes: Renal Failure, Renal Inusuff, BPH, Cancer, Hematuria, Hemodialysis, Neurogenic Bladder, Renal Calculi, UTI, Other Endocrine: Yes: Diabetes Mellitus - Alcohol/Substance Use Hx Alcohol Use: No (past) - Smoking History Smoking history: Former smoker Have you smoked in the past 12 months: Yes Aproximately how many cigarettes per day: 20 - Social History Usual Living Arrangement: Residential ADL: Independent 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, 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 Travel: No Home Medications - Allergies Allergies/Adverse Reactions: Allergies Allergy/AdvReac Type Severity Reaction Status Date / Time amoxicillin trihydrate Allergy Mild Verified 09/28/17 08:48 [From Augmentin] potassium clavulanate AdvReac Unknown Verified 09/28/17 08:48 [From Augmentin] - Home Medications Home Medications: Ambulatory Orders Aa/Hydrolyzed Collagen, Whey [Lps Neutral Flavor Liquid] 960 ml PO DAILY Acetaminophen 650 mg PO QID PRN 09/28/17 Apixaban [Eliquis] 5 mg PO BID 09/28/17 Bicalutamide [Casodex] 50 mg PO DAILY 09/28/17 Diltiazem HCl [Cardizem LA] 240 mg PO DAILY 09/28/17 Donepezil HCl [Aricept] 10 mg PO HS 09/28/17 Hypromellose 0.5% Opth Soln [Artificial Tears] 1 drop OD BID 09/28/17 Nitrofurantoin Monohyd/M-Cryst [Nitrofurantoin [place]-Mcr 100 mg] 100 mg PO BID Pantoprazole Sodium 40 mg PO DAILY 09/28/17 Polyethylene Glycol 3350 [Gavilax] 17 gm PO DAILY 09/28/17 Quetiapine Fumarate [Seroquel -] 25 mg PO HS 09/28/17 Thiamine HCl [B-1] 100 mg PO HS 09/28/17 Family Disease History - Family Disease History Family History: Unremarkable Review of Systems - Review of Systems Constitutional: reports: Weakness Eyes: reports: No Symptoms HENT: reports: No Symptoms Neck: reports: No Symptoms Cardiovascular: reports: No Symptoms Respiratory: reports: No Symptoms Gastrointestinal: reports: No Symptoms Genitourinary: reports: No Symptoms Musculoskeletal: reports: No Symptoms Integumentary: reports: No Symptoms Neurological: reports: No Symptoms Endocrine: reports: No Symptoms Nephrology Consult - Height Height: 6 ft 4 in - Weight Weight: 88.541 kg - BMI Body Mass Index (BMI): 23.7 - Lab Results CBC,BMP: CBC, BMP 09/30/17 09:12 09/30/17 09:12 Anion Gap: Anion Gap Anion Gap 8 (8-16) 09/30/17 09:12 - Imaging Chest X-ray: Report Reviewed - Physical Examination Vital Signs: Vital Signs Temperature 97.9 F 10/02/17 11:00 Pulse Rate 89 10/02/17 11:00 Respiratory Rate 18 10/02/17 11:00 Blood Pressure 128/63 10/02/17 11:00 O2 Sat by Pulse Oximetry (%) 98 10/02/17 11:00 Constitutional: Yes: No Distress, Calm Eyes: Yes: Conjunctiva Clear HENT: Yes: Atraumatic Neck: Yes: Supple Cardiovascular: Yes: Regular Rate and Rhythm Respiratory: Yes: Regular, CTA Bilaterally Gastrointestinal: Yes: Normal Bowel Sounds, Soft. No: Tenderness Renal/: No: Bladder Distention, [place] Present, Hematuria Extremities: No: Cold, Cool, Cyanosis Edema: No Neurological: Yes: Alert, Oriented Assessment/Plan 77 year old gentleman with PMhx fo CKD, SILAS (now improved), Hypertension, DM, COPD, Dementia, Prostate Ca, CVA, Afib with RVR who presented with fall at [place] and found to have weight loss with Cr of 1.7. #CKD Stage 3 with Hx of SILAS from ATN Renal function stable and at baseline no new labs today, check in AM Dose all meds for CrCl less then 50 avoid Fleets, NSAIDs, IV contrast trend BUN/Cr #s/p FAll supportive care #Weight Loss/Colon Polyps f/u biopsy results GI following #Hypertension BP at goal off meds check ortostatics as per Cardiology #UTI on Ceftriaxone urine culture pending Thank you Will follow Donta Carmona DO Current Medications Acetaminophen (Tylenol -) 650 mg PO Q6H PRN PRN Reason: PAIN Apixaban (Eliquis -) 5 mg PO BID [facility] Last Admin: 10/02/17 10:58 Dose: 5 mg Artificial Tears (Artificial Tears) 1 drop OD BID [facility] Last Admin: 10/02/17 10:57 Dose: 1 drop Bicalutamide (Casodex -) 50 mg PO DAILY [facility] Last Admin: 10/02/17 10:58 Dose: 50 mg Diltiazem HCl (Cardizem Cd -) 180 mg PO DAILY [facility] Last Admin: 10/02/17 10:58 Dose: 180 mg CEFTRIAXONE 1 G/50 ML PREMIX (Ceftriaxone 1 Gm-D5w Bag) 50 mls @ 100 mls/hr IVPB DAILY [facility] Last Admin: 10/02/17 10:59 Dose: 100 mls/hr Pantoprazole Sodium (Protonix -) 40 mg PO DAILY [facility] Last Admin: 10/02/17 10:58 Dose: 40 mg Polyethylene Glycol (Miralax (For Daily Use) -) 17 gm PO DAILY [facility] Last Admin: 10/02/17 10:59 Dose: Not Given Thiamine HCl (Vitamin B1 -) 100 mg PO [facility] Last Admin: 10/01/17 21:30 Dose: 100 mg
[2017-10-02] MEDS: MIDODRINE HCL 5 MG TABLET PO SCH ×2 (15:18→18:57)
--- NOTE | 2017-10-02 18:07 | CONSULT ---
Consult Consult Specialty:: General Surgery Referred by:: Sadi Huffman Reason for Consultation:: incompletely resected colon polyp - History of Present Illness Chief Complaint: incompletely resected colon polyp, weight loss History of Present Illness: 77yo M with multiple medical problems including afib on Eliquis, HTN, HLD, DM, CKD with Cr near baseline, COPD, prostate CA with obstructive uropathy (dx recently) s/p bilateral orchiectomy in August, was at [facility] for rehab and was to be discharged tomorrow. Several days ago, he fell and struck his head against the wall, prompting visit to ER, where head CT was negative, and head laceration was stapled. He was noted to have orthostatic hypotension, which per medical provider has been present for some time now, with h/o multiple falls. He also c/o weight loss over the last several months. Yesterday, he had EGD and colonoscopy, but prep was poor, so colonoscopy was repeated this morning with findings of 5 polyps. Four were removed, one in the descending colon (~3cm) had an umbilicated center and could not be fully removed, but was biopsied. All biopsies are pending pathology. Surgery is consulted for partial colectomy to remove the remaining portion of the polyp. Pt has been on Eliquis since arrival, last dose given this am ~11:00 after scope. He has also eaten two meals since colonoscopy, then clears for dinner. Cardizem dose has been reduced by cardiology from 240mg daily to 180mg daily, but BP was still orthostatic this afternoon. He has not had BM since scope. He denies n/v, f/c, constipation or diarrhea prior to this. No abdominal pain. No specific urinary symptoms, though urine had been darker recently. He is on Ceftriaxone for UTI, culture is pending. Per daughter, he initially had some form of oral ?radiation? pills for prostate cancer. He is still on Casodex after the orchiectomies. Per chart, in May, he had bilateral ureteral stents at cystoscopy with bladder fulguration. In June, he had cysto with right stent exchange for occlusion, plasma button vaporization of prostate. He had also had permacath placed in May in R subclavian, as RIJ was found to be occluded with normal R SCV and SVC. 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 Cardio/Vascular: Yes: AFIB, CAD, HTN, Hyperlipdemia Pulmonary: Yes: COPD Gastrointestinal: Yes: Diverticulitis Renal/: Yes: Renal Inusuff, BPH, Cancer (prostate), UTI Endocrine: Yes: Diabetes Mellitus - Past Surgical History Past Surgical History: Yes: Colectomy (partial left - diverticulitis 1999, had 3 -stage surgery including colostomy, reversal with diverting colostomy, reversal) , Colonoscopy, Colostomy (s/p reversal), Orchiectomy (bilateral Aug 2017), Stent (bilateral ureteral and exchange of right (Jun 2017)), TURP (cystoscopy w/ stent exchange and plasma button vaporization of prostate Jun 2017), Upper Endoscopy - Alcohol/Substance Use Hx Alcohol Use: No (past - quit 30 yrs ago) History of Substance Use: reports: None - Smoking History Smoking history: Former smoker Have you smoked in the past 12 months: Yes Aproximately how many cigarettes per day: 40 (2ppd x 60yrs) If you are a former smoker, when did you quit?: 1 month ago - Social History Usual Living Arrangement: Custodial (was at [facility] for rehab, [facility] for [facility] , planning to live with daughter in [facility]) ADL: Independent 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, 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 Travel: No Home Medications - Allergies Allergies/Adverse Reactions: Allergies Allergy/AdvReac Type Severity Reaction Status Date / Time amoxicillin trihydrate Allergy Mild Verified 09/28/17 08:48 [From Augmentin] potassium clavulanate AdvReac Unknown Verified 09/28/17 08:48 [From Augmentin] - Home Medications Home Medications: Ambulatory Orders Aa/Hydrolyzed Collagen, Whey [Lps Neutral Flavor Liquid] 960 ml PO DAILY Acetaminophen 650 mg PO QID PRN 09/28/17 Apixaban [Eliquis] 5 mg PO BID 09/28/17 Bicalutamide [Casodex] 50 mg PO DAILY 09/28/17 Diltiazem HCl [Cardizem LA] 240 mg PO DAILY 09/28/17 Donepezil HCl [Aricept] 10 mg PO HS 09/28/17 Hypromellose 0.5% Opth Soln [Artificial Tears] 1 drop OD BID 09/28/17 Nitrofurantoin Monohyd/M-Cryst [Nitrofurantoin [place]-Mcr 100 mg] 100 mg PO BID Pantoprazole Sodium 40 mg PO DAILY 09/28/17 Polyethylene Glycol 3350 [Gavilax] 17 gm PO DAILY 09/28/17 Quetiapine Fumarate [Seroquel -] 25 mg PO HS 09/28/17 Thiamine HCl [B-1] 100 mg PO HS 09/28/17 Home Medications (free text): Seroquel, Protonix Family Disease History - Family Disease History Family Disease History: Diabetes: Father ( at 57, possibly of DM complications), CA: Mother (lung, at 73 within 5mos of dx, was smoker) Review of Systems - Review of Systems Constitutional: reports: Unintentional Wgt. Loss. denies: Chills, Fever, Loss of Appetite Eyes: reports: Other (uses glasses for reading and TV). denies: Recent Change in Vision HENT: reports: Hearing Loss (left more than right, does not use aids). denies: Difficult Swallowing, Nasal Congestion, Throat Pain Neck: denies: Swollen Glands, Tenderness Cardiovascular: denies: Chest Pain, Palpitations Respiratory: reports: SOB on Exertion (climbing stairs or walking up hill). denies: Cough Gastrointestinal: denies: Abdominal Pain, Constipation, Diarrhea, Melena, Nausea , Rectal Bleeding, Vomiting Genitourinary: denies: Burning, Dysuria, Incontinence, Urgency Musculoskeletal: denies: Back Pain, Joint Pain, Muscle Pain Integumentary: denies: Change in Color, Rash Neurological: reports: Dizziness (lightheaded when getting up, especially quickly), Unsteady Gait (uses walker or wheelchair, can walk without but is unsteady and sometimes falls, so tends not to). denies: Headache Endocrine: reports: Unexplained Weight Loss. denies: Unexplained Weight Gain Psychiatric: denies: Anxiety, Depression Physical Exam Vital Signs: Vital Signs Temperature 97.9 F 10/02/17 11:00 Pulse Rate 79 10/02/17 13:11 Respiratory Rate 18 10/02/17 11:00 Blood Pressure 131/66 10/02/17 13:11 O2 Sat by Pulse Oximetry (%) 98 10/02/17 11:00 Constitutional: Yes: Well Nourished, No Distress, Calm Eyes: Yes: Conjunctiva Clear, EOM Intact. No: Sclera Icterus HENT: Yes: Normocephalic, Other (elena on laceration at posterior crown). No : Atraumatic Neck: Yes: Supple, Trachea Midline Cardiovascular: Yes: Pulse Irregular. No: Bradycardia, Tachycardia Respiratory: Yes: Regular, CTA Bilaterally, Wheezes (mild wheeze vs soft rhonchi insp/exp more on right than left) Gastrointestinal: Yes: Normal Bowel Sounds, Soft, Hernia (umbilical, reducible) , Other (well-healed lower abdominal transverse scar and left-sided ostomy scar) . No: Distention, Tenderness ...Rectal Exam: Yes: Deferred Renal/: Yes: Other (testes absent bilaterally). No: CVA Tenderness - Left, CVA Tenderness - Right Musculoskeletal: No: Back Pain, Joint Swelling Extremities: No: Cool, Cyanosis Edema: No Peripheral Pulses WNL: No (present but irregular) Integumentary: No: Jaundice, Rash Wound/Incision: Yes: Clean/Dry, Well Approximated, Elena Intact (on scalp), Open to air Neurological: Yes: Alert, Oriented Psychiatric: Yes: Alert, Oriented Labs: CBC, BMP 09/30/17 09:12 09/30/17 09:12 CMP Sodium 139 mmol/L (136-145) 09/30/17 09:12 Potassium 4.1 mmol/L (3.5-5.1) 09/30/17 09:12 Chloride 104 mmol/L (98-107) 09/30/17 09:12 Carbon Dioxide 27 mmol/L (21-32) 09/30/17 09:12 Anion Gap 8 (8-16) 09/30/17 09:12 BUN 28 mg/dL (7-18) H 09/30/17 09:12 Creatinine 1.7 mg/dL (0.7-1.3) H 09/30/17 09:12 Creat Clearance w eGFR 39.49 (>60) 09/30/17 09:12 Random Glucose 175 mg/dL (74-106) H 09/30/17 09:12 Calcium 9.1 mg/dL (8.5-10.1) 09/30/17 09:12 Iron 30 ug/dL (38-169) L 09/30/17 11:20 TIBC 173 ug/dL (250-450) L 09/30/17 11:20 Iron Saturation 17 % (15-55) 09/30/17 11:20 Total Bilirubin 0.3 mg/dL (0.2-1.0) D 09/30/17 09:12 AST 9 U/L (15-37) L 09/30/17 09:12 ALT 11 U/L (12-78) L 09/30/17 09:12 Alkaline Phosphatase 90 U/L (45-117) 09/30/17 09:12 Troponin I < 0.02 ng/ml (0.00-0.05) 09/29/17 09:00 B-Natriuretic Peptide 1374.06 pg/ml (5-450) H 09/28/17 09:55 Total Protein 6.1 g/dl (6.4-8.2) L 09/30/17 09:12 Albumin 2.8 g/dl (3.4-5.0) L 09/30/17 09:12 Vitamin B12 1519 pg/ml (180-914) H D 09/30/17 09:12 Serum Folate 7 ng/ml (3.1-17.5) 09/30/17 09:12 TSH 2.72 uIU/ml (0.358-3.74) D 09/30/17 09:12 Free T4 1.28 ng/dl (0.76-1.16) H 09/30/17 09:12 Urine Test Results Urine Color Yellow 09/30/17 16:00 Urine Appearance Cloudy 09/30/17 16:00 Urine pH 6.0 (5.0-8.0) 09/30/17 16:00 Ur Specific [place] 1.013 (1.001-1.035) 09/30/17 16:00 Urine Protein 1+ (NEGATIVE) H 09/30/17 16:00 Urine Glucose (UA) Negative (NEGATIVE) 09/30/17 16:00 Urine Ketones Negative (NEGATIVE) 09/30/17 16:00 Urine Blood 3+ (NEGATIVE) H 09/30/17 16:00 Urine Nitrite Positive (NEGATIVE) 09/30/17 16:00 Urine Bilirubin Negative (NEGATIVE) 09/30/17 16:00 Ur Leukocyte Esterase 3+ (NEGATIVE) H 09/30/17 16:00 Ur Epithelial Cells Rare /HPF (FEW) 09/30/17 16:00 Urine Bacteria Rare /hpf (NONE SEEN) 09/30/17 16:00 Urine Mucus Rare 09/30/17 16:00 no new labs in last 24 hrs Problem List - Problems (1) Colon polyps Code(s): K63.5 - POLYP OF COLON Qualifiers: Colon polyp type: unspecified Colon location: descending Qualified Code(s ): D12.4 - Benign neoplasm of descending colon (2) 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 Code(s): D49.0 - NEOPLASM OF UNSPECIFIED BEHAVIOR OF DIGESTIVE SYSTEM (3) Orthostatic hypotension Code(s): I95.1 - ORTHOSTATIC HYPOTENSION (4) Recurrent falls Code(s): R29.6 - REPEATED FALLS (5) Weight loss Code(s): R63.4 - ABNORMAL WEIGHT LOSS (6) History of open sigmoidectomy Code(s): Z98.890 - OTHER SPECIFIED POSTPROCEDURAL STATES; Z90.49 - ACQUIRED ABSENCE OF OTHER SPECIFIED PARTS OF DIGESTIVE TRACT (7) Atrial fibrillation Code(s): I48.91 - UNSPECIFIED ATRIAL FIBRILLATION Qualifiers: Atrial fibrillation type: persistent Qualified Code(s): I48.1 - Persistent atrial fibrillation (8) Chronic kidney disease (CKD) Code(s): N18.9 - CHRONIC KIDNEY DISEASE, UNSPECIFIED Qualifiers: Chronic kidney disease stage: stage 3 (moderate) Qualified Code(s): N18.3 - Chronic kidney disease, stage 3 (moderate) (9) HTN (hypertension) Code(s): I10 - ESSENTIAL (PRIMARY) HYPERTENSION Qualifiers: Hypertension type: essential hypertension Qualified Code(s): I10 - Essential (primary) hypertension (10) Hyperlipidemia associated with type 2 diabetes mellitus Code(s): E11.69 - TYPE 2 DIABETES MELLITUS WITH OTHER SPECIFIED COMPLICATION; E78.5 - HYPERLIPIDEMIA, UNSPECIFIED (11) UTI (urinary tract infection) Code(s): N39.0 - URINARY TRACT INFECTION, SITE NOT SPECIFIED Qualifiers: Urinary tract infection type: site unspecified (12) 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 Assessment/Plan Pt will need resection of at least portion of descending colon including residual polyp GI did Alyssa ink tattoo at time of partial resection Pt will need optimization by cardiology, medicine, nephrology for partial colectomy under general anesthesia Need to hold Eliquis until some time postop (need at least 48 hrs off before operation) Clear liquids until surgery - will need full bowel prep tomorrow, NPO after midnight On IVF to ensure dehydration not contributing to orthostatic hypotension Will ask cardio about possibly decreasing Cardizem dose? Nephrology started midodrine tonight Plan for Saturday if OR available Discussed with patient and daughter by phone R/B/A of partial left colectomy, including but not limited to bleeding, infection, intestinal injury, anastomotic leak, abscess, hernia, obstruction, potential need for further procedures, . Reoperative surgery carries higher risks of some of these. Pt wishes to proceed with surgery. Will sign informed consent tomorrow. Preop labs ordered including T&S Perioperative antibiotics for colon coverage (Cefotetan) to start in OR Thank you for the opportunity to participate in the care of this patient.
[2017-10-02] MEDS ORDERED: PT OWN MED DRAWER 7, Y5N ONE (18:11)
[2017-10-02] MEDS: SODIUM CHLORIDE 1,000 ML IV SCH (18:56)
[2017-10-02] MEDS: THIAMINE HCL 100 MG TABLET (FP) PO SCH (22:12)
[2017-10-02 23:35] LABS: URINE CREATININE 75.6 mg/dL (20-370)
[2017-10-03] MEDS: SODIUM CHLORIDE 1,000 ML IV SCH ×2 (06:36→17:34)
[2017-10-03 07:27] LABS: HEMATOCRIT 30.7 % (35.4-49); HEMOGLOBIN 10.3 GM/dL (11.7-16.9); MCH 29.8 pg (25.7-33.7); MCHC 33.6 g/dl (32.0-35.9); MEAN CELL VOLUME 88.5 fl (80-96); MEAN PLT VOLUME 7.7 fl (7.5-11.1); PLATELET COUNT 290 K/MM3 (134-434); RBC 3.46 M/mm3 (4.00-5.60); RDW 12.8 % (11.9-15.9); WHITE BLOOD COUNT 8.9 K/mm3 (4.0-10.0)
[2017-10-03 07:46] LABS: INR 1.26 (0.82-1.09); PROTHROMBIN TIME (PATIENT) 14.2 SEC (9.98-11.88)
[2017-10-03 07:49] LABS: ALBUMIN 2.5 g/dl (3.4-5.0); ANION GAP 6 (8-16); BLOOD UREA NITROGEN 15 mg/dL (7-18); CALCIUM 9.2 mg/dL (8.5-10.1); CHLORIDE 104 mmol/L (98-107); CO2 30 mmol/L (21-32); GLUCOSE,RANDOM 80 mg/dL (74-106); MAGNESIUM 1.8 mg/dL (1.8-2.4); PHOSPHOROUS 3.5 mg/dL (2.5-4.9); POTASSIUM 3.9 mmol/L (3.5-5.1); SGOT/AST 7 U/L (15-37); SODIUM 140 mmol/L (136-145)
[2017-10-03 07:52] LABS: ALK PHOS 92 U/L (45-117); BILIRUBIN,TOTAL 0.3 mg/dL (0.2-1.0); CREATININE 1.4 mg/dL (0.7-1.3); SGPT/ALT 10 U/L (12-78); TOT PROT 5.5 g/dl (6.4-8.2)
--- NOTE | 2017-10-03 09:28 | PN ---
Progress Note (short form) - Note Progress Note: Neurology History of Present Illness 77 yo M with multiple medical comorbidities including HLD,HTN, NIDDM, COPD, Alzehiemers dementia, metastatic prostate ca. (on chemotherapy as of 07/30), CVA , and A-fib w/ RvR ( on Eliquis ) who [facility] with head injury 2/2 mechanical fall. 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 When attempting to grab the hand rail and stand up for a second time he fell again. Complains of posterior WALLS. Denies LOC, and was on the ground for 2- 3 minutes before nursing staff found patient and assisted him to wheelchair. Has been experiencing intermittent lightheadedness for the past 3-4 months upon standing. Normally ambulates without assistive devices. Denies neck/back/ext/abdominal pain or trauma, tongue laceration, teeth avulsion, WALLS, N/V, vision change, tinnitus, new onset weakness, sensory disturbance. Denies fevers/chills, diarrhea, constipation. Denies alcohol use. Recent admission for BL scrotal orchiectomies (08/23) 2/[address] head completed in ER and reviewed. Did not show any intracranial bleeding. CT C spine reviewed and showed no acute Fx, grade 1 anterolistesis noted also with T2 compression, possibly chronic. EGD/colonscopy completed, report reviewed. Mental status remains at baseline and no new neurologic events overnight. Active Medications Acetaminophen (Tylenol -) 650 mg PO Q6H PRN PRN Reason: PAIN Apixaban (Eliquis -) 5 mg PO BID [facility] Last Admin: 10/02/17 10:58 Dose: 5 mg Artificial Tears (Artificial Tears) 1 drop OD BID [facility] Last Admin: 10/02/17 22:12 Dose: 1 drop Bicalutamide (Casodex -) 50 mg PO DAILY [facility] Last Admin: 10/02/17 10:58 Dose: 50 mg Diltiazem HCl (Cardizem Cd -) 180 mg PO DAILY [facility] Last Admin: 10/02/17 10:58 Dose: 180 mg CEFTRIAXONE 1 G/50 ML PREMIX (Ceftriaxone 1 Gm-D5w Bag) 50 mls @ 100 mls/hr IVPB DAILY [facility] Last Admin: 12/20/17 10:59 Dose: 100 mls/hr Sodium Chloride (Normal Saline -) 1,000 mls @ 83 mls/hr IV ASDIR [facility] Last Admin: 10/03/17 06:36 Dose: 83 mls/hr Midodrine (Proamatine -) 5 mg PO TID-MID [facility] Last Admin: 10/02/17 18:57 Dose: 5 mg Pantoprazole Sodium (Protonix -) 40 mg PO DAILY [facility] Last Admin: 10/02/17 10:58 Dose: 40 mg Polyethylene Glycol (Miralax (For Daily Use) -) 17 gm PO DAILY [facility] Last Admin: 10/02/17 10:59 Dose: Not Given Thiamine HCl (Vitamin B1 -) 100 mg PO HS [facility] Last Admin: 10/02/17 22:12 Dose: 100 mg *Physical Exam Vital Signs Temperature 97.9 F 10/03/17 06:00 Pulse Rate 68 10/03/17 06:00 Respiratory Rate 20 10/03/17 06:00 Blood Pressure 123/67 10/03/17 06:00 O2 Sat by Pulse Oximetry (%) 97 10/02/17 21:00 GENERAL: Awake, alert, and fully oriented, in no acute distress HEAD: 5 cm sup. L side occiptial superficial, vertical laceration, with no sub q involvement. 4 cm inf R sided occipital superficial, horizontal laceration, with no sub q involvement. Normocephalic EYES: PERRLA, EOMI, sclera anicteric, conjunctiva clear ENT: Auricles normal inspection, hearing grossly normal, nares patent, oropharynx clear without exudates. Moist mucosa. NECK: Normal ROM, supple, no lymphadenopathy, JVD, or masses LUNGS: No distress, speaks full sentences, clear to auscultation bilaterally HEART: Regular rate and rhythm, normal S1 and S2, no murmurs, rubs or gallops, peripheral pulses normal and equal bilaterally. ABDOMEN: Soft, nontender, normoactive bowel sounds. No guarding, no rebound. No masses EXTREMITIES : Normal inspection, Normal range of motion, no edema. No clubbing or cyanosis. NEUROLOGICAL: Cranial nerves II through XII grossly intact. Normal speech, no focal sensorimotor deficits. Absent dysmetria on FTN. SKIN: Warm, Dry, normal turgor, no rashes or lesions noted. CBCD WBC 8.9 K/mm3 (4.0-10.0) 10/03/17 07:00 RBC 3.46 M/mm3 (4.00-5.60) L 10/03/17 07:00 Hgb 10.3 GM/dL (11.7-16.9) L 10/03/17 07:00 Hct 30.7 % (35.4-49) L 10/03/17 07:00 MCV 88.5 fl (80-96) 10/03/17 07:00 MCHC 33.6 g/dl (32.0-35.9) 10/03/17 07:00 RDW 12.8 % (11.9-15.9) 10/03/17 07:00 Plt Count 290 K/MM3 (134-434) 10/03/17 07:00 MPV 7.7 fl (7.5-11.1) 10/03/17 07:00 CMP Sodium 140 mmol/L (136-145) 10/03/17 07:00 Potassium 3.9 mmol/L (3.5-5.1) 10/03/17 07:00 Chloride 104 mmol/L (98-107) 10/03/17 07:00 Carbon Dioxide 30 mmol/L (21-32) 10/03/17 07:00 Anion Gap 6 (8-16) L 10/03/17 07:00 BUN 15 mg/dL (7-18) D 10/03/17 07:00 Creatinine 1.4 mg/dL (0.7-1.3) H 10/03/17 07:00 Creat Clearance w eGFR 49.41 (>60) 10/03/17 07:00 Calcium 9.2 mg/dL (8.5-10.1) 10/03/17 07:00 Total Bilirubin 0.3 mg/dL (0.2-1.0) 10/03/17 07:00 AST 7 U/L (15-37) L D 10/03/17 07:00 ALT 10 U/L (12-78) L 10/03/17 07:00 Alkaline Phosphatase 92 U/L (45-117) 10/03/17 07:00 Total Protein 5.5 g/dl (6.4-8.2) L 10/03/17 07:00 Albumin 2.5 g/dl (3.4-5.0) L 10/03/17 07:[address] C spine reviewed Medical Decision Making 77 yo M with multiple medical comorbidities including HLD,HTN, NIDDM, COPD, Alzehiemers dementia, metastatic prostate ca. (on chemotherapy as of 07/30), CVA , and A-fib w/ RvR ( on Eliquis ) who [facility] from [facility] with head injury 2/2 mechanical fall. 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 When attempting to grab the hand rail and stand up for a second time he fell again. Complains of posterior WALLS. Denies LOC, and was on the ground for 2- 3 minutes before nursing staff found patient and assisted him to wheelchair. Has been experiencing intermittent lightheadedness for the past 3-4 months upon standing. Normally ambulates without assistive devices. Denies neck/back/ext/ abdominal pain or trauma, tongue laceration, teeth avulsion, WALLS, N/V, vision change, tinnitus, new onset weakness, sensory disturbance. CT head completed in ER and reviewed. Did not show any intracranial bleeding. CT C spine reviewed and showed no acute Fx, grade 1 anterolistesis noted also with T2 complression, possibly chronic. Pain mgmt recommended. Physical therapy may be beneficial. Fall precautions. Laceration repaired, monitor for any infections. No intracranial bleeding, will not require AEDS, does not appear to be seizure event. Colonscopy completed, report reviewed, GI followup. Neurologically stable. Mental status at baseline.
[2017-10-03] MEDS ORDERED: PT OWN MED DRAWER 7, Y5N ONE ×2 (09:34→19:11)
[2017-10-03] MEDS: MIDODRINE HCL 5 MG TABLET PO SCH ×3 (09:51→17:34)
[2017-10-03] MEDS: PANTOPRAZOLE 40 MG TABLET (FP) PO SCH (09:51)
[2017-10-03] MEDS: ARTIFICIAL TEARS (POLYVINYL ALCOHOL 1.4%) OPTH DROPS OD SCH ×2 (09:51→21:46)
[2017-10-03] MEDS: CEFTRIAXONE 1 G/50 ML PREMIX 50 ML IVPB SCH (09:51)
[2017-10-03] MEDS: POLYETHYLENE GLYCOL 3350 119 GM BTL PO SCH (09:52)
[2017-10-03] MEDS: BICALUTAMIDE 50 MG TABLET (FP) PO SCH (09:52)
--- NOTE | 2017-10-03 10:55 | PN ---
Progress Note, Physician History of Present Illness: No overnight events. Pt feeling well. On clear liquids. No lightheadedness when sat up for breakfast or stood to urinate this morning. No BM yet. - Current Medication List Current Medications: Active Medications Acetaminophen (Tylenol -) 650 mg PO Q6H PRN PRN Reason: PAIN Artificial Tears (Artificial Tears) 1 drop OD BID [facility] Last Admin: 10/03/17 09:51 Dose: 1 drop Bicalutamide (Casodex -) 50 mg PO DAILY [facility] Last Admin: 10/03/17 09:52 Dose: 50 mg Diltiazem HCl (Cardizem Cd -) 180 mg PO DAILY [facility] Last Admin: 10/02/17 10:58 Dose: 180 mg CEFTRIAXONE 1 G/50 ML PREMIX (Ceftriaxone 1 Gm-D5w Bag) 50 mls @ 100 mls/hr IVPB DAILY [facility] Last Admin: 10/03/17 09:51 Dose: 100 mls/hr Sodium Chloride (Normal Saline -) 1,000 mls @ 83 mls/hr IV ASDIR [facility] Last Admin: 10/03/17 06:36 Dose: 83 mls/hr Midodrine (Proamatine -) 5 mg PO TID-MID [facility] Last Admin: 10/03/17 09:51 Dose: 5 mg Pantoprazole Sodium (Protonix -) 40 mg PO DAILY [facility] Last Admin: 10/03/17 09:51 Dose: 40 mg Polyethylene Glycol (Miralax (For Daily Use) -) 17 gm PO DAILY [facility] Last Admin: 10/03/17 09:52 Dose: 17 grams Thiamine HCl (Vitamin B1 -) 100 mg PO HS [facility] Last Admin: 10/02/17 22:12 Dose: 100 mg - Objective Vital Signs: Vital Signs Temperature 97.9 F 10/03/17 09:39 Pulse Rate 74 10/03/17 09:39 Respiratory Rate 18 10/03/17 09:39 Blood Pressure 126/79 10/03/17 09:39 O2 Sat by Pulse Oximetry (%) 98 10/03/17 09:00 Constitutional: Yes: Well Nourished, No Distress, Calm Eyes: Yes: Conjunctiva Clear, EOM Intact HENT: Yes: Normocephalic, Other (elena in scalp) Cardiovascular: Yes: Pulse Irregular. No: Bradycardia, Tachycardia Respiratory: Yes: Regular, CTA Bilaterally. No: Wheezes Gastrointestinal: Yes: Normal Bowel Sounds, Soft, Hernia (umbilical). No: Distention, Tenderness ...Rectal Exam: Yes: Deferred Genitourinary: No: CVA Tenderness - Left, CVA Tenderness - Right Extremities: Yes: Other (TEDs on BLE). No: Cool, Cyanosis Edema: No Integumentary: Yes: Laceration (with elena in scalp). No: Jaundice, Rash Wound/Incision: Yes: Clean/Dry, Well Approximated, [place] Intact (in scalp), Open to air Neurological: Yes: Alert, Oriented Psychiatric: Yes: Alert, Oriented Labs: CBC, BMP 10/03/17 07:00 10/03/17 07:00 INR, PTT INR 1.26 (0.82-1.09) H 10/03/17 07:00 CMP Sodium 140 mmol/L (136-145) 10/03/17 07:00 Potassium 3.9 mmol/L (3.5-5.1) 10/03/17 07:00 Chloride 104 mmol/L (98-107) 10/03/17 07:00 Carbon Dioxide 30 mmol/L (21-32) 10/03/17 07:00 Anion Gap 6 (8-16) L 10/03/17 07:00 BUN 15 mg/dL (7-18) D 10/03/17 07:00 Creatinine 1.4 mg/dL (0.7-1.3) H 10/03/17 07:00 Creat Clearance w eGFR 49.41 (>60) 10/03/17 07:00 Random Glucose 80 mg/dL (74-106) D 10/03/17 07:00 Calcium 9.2 mg/dL (8.5-10.1) 10/03/17 07:00 Phosphorus 3.5 mg/dL (2.5-4.9) 10/03/17 07:00 Magnesium 1.8 mg/dL (1.8-2.4) D 10/03/17 07:00 Iron 30 ug/dL (38-169) L 09/30/17 11:20 TIBC 173 ug/dL (250-450) L 09/30/17 11:20 Iron Saturation 17 % (15-55) 09/30/17 11:20 Total Bilirubin 0.3 mg/dL (0.2-1.0) 10/03/17 07:00 AST 7 U/L (15-37) L D 10/03/17 07:00 ALT 10 U/L (12-78) L 10/03/17 07:00 Alkaline Phosphatase 92 U/L (45-117) 10/03/17 07:00 Troponin I < 0.02 ng/ml (0.00-0.05) 09/29/17 09:00 B-Natriuretic Peptide 1374.06 pg/ml (5-450) H 09/28/17 09:55 Total Protein 5.5 g/dl (6.4-8.2) L 10/03/17 07:00 Albumin 2.5 g/dl (3.4-5.0) L 10/03/17 07:00 Vitamin B12 1519 pg/ml (180-914) H D 09/30/17 09:12 Serum Folate 7 ng/ml (3.1-17.5) 09/30/17 09:12 TSH 2.72 uIU/ml (0.358-3.74) D 09/30/17 09:12 Free T4 1.28 ng/dl (0.76-1.16) H 09/30/17 09:12 BUN/Cr decreased, at baseline lytes ok INR down biopsies pending Problem List - Problems (1) Colon polyps Code(s): K63.5 - POLYP OF COLON Qualifiers: Colon polyp type: unspecified Colon location: descending Qualified Code(s ): D12.4 - Benign neoplasm of descending colon (2) 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 Code(s): D49.0 - NEOPLASM OF UNSPECIFIED BEHAVIOR OF DIGESTIVE SYSTEM (3) Orthostatic hypotension Code(s): I95.1 - ORTHOSTATIC HYPOTENSION (4) Recurrent falls Code(s): R29.6 - REPEATED FALLS (5) Weight loss Code(s): R63.4 - ABNORMAL WEIGHT LOSS (6) History of open sigmoidectomy Code(s): Z98.890 - OTHER SPECIFIED POSTPROCEDURAL STATES; Z90.49 - ACQUIRED ABSENCE OF OTHER SPECIFIED PARTS OF DIGESTIVE TRACT (7) Atrial fibrillation Code(s): I48.91 - UNSPECIFIED ATRIAL FIBRILLATION Qualifiers: Atrial fibrillation type: persistent Qualified Code(s): I48.1 - Persistent atrial fibrillation (8) Chronic kidney disease (CKD) Code(s): N18.9 - CHRONIC KIDNEY DISEASE, UNSPECIFIED Qualifiers: Chronic kidney disease stage: stage 3 (moderate) Qualified Code(s): N18.3 - Chronic kidney disease, stage 3 (moderate) (9) HTN (hypertension) Code(s): I10 - ESSENTIAL (PRIMARY) HYPERTENSION Qualifiers: Hypertension type: essential hypertension Qualified Code(s): I10 - Essential (primary) hypertension (10) Hyperlipidemia associated with type 2 diabetes mellitus Code(s): E11.69 - TYPE 2 DIABETES MELLITUS WITH OTHER SPECIFIED COMPLICATION; E78.5 - HYPERLIPIDEMIA, UNSPECIFIED (11) UTI (urinary tract infection) Code(s): N39.0 - URINARY TRACT INFECTION, SITE NOT SPECIFIED Qualifiers: Urinary tract infection type: site unspecified (12) 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 Assessment/Plan Pt will need optimization by cardiology, medicine, pulmonology for partial colectomy under general anesthesia Eliquis d/c'd for now Clear liquids, NPO after midnight Bowel prep today Continue IVF Cardizem to be held, telemetry postop per cardio Plan for Saturday 11 am OR Discussed with patient R/B/A of partial left colectomy, including but not limited to bleeding, infection, intestinal injury, anastomotic leak, abscess, hernia, obstruction, potential need for further procedures, . Reoperative surgery carries higher risks of some of these. Pt wishes to proceed with surgery. Will sign informed consent. Perioperative antibiotics for colon coverage (Cefotetan) to start in OR
--- NOTE | 2017-10-03 11:21 | PN ---
Progress Note, Physician Chief Complaint: Fall, orthostatic hypotension History of Present Illness: NAD, in bed EGD completed had colonoscopy today-5 large colon polyps and diverticulosis were found. The center of the 3 cm polyp in the descending colon appeared to be anchored to the deep layers of the colon wall and thus could not be completely lifted with submucosal injection of normal saline. The resection therefore was incomplete. going for surgery in AM Pulmonary and cardiology optimization needed prior to sx cardizem on hol still orthostatic restart seroquel and aricept, pt has been orthostatic prior to being started on these meds - Current Medication List Current Medications: Active Medications Acetaminophen (Tylenol -) 650 mg PO Q6H PRN PRN Reason: PAIN Artificial Tears (Artificial Tears) 1 drop OD BID [facility] Last Admin: 10/03/17 09:51 Dose: 1 drop Bicalutamide (Casodex -) 50 mg PO DAILY [facility] Last Admin: 10/03/17 09:52 Dose: 50 mg Diltiazem HCl (Cardizem Cd -) 180 mg PO DAILY [facility] Last Admin: 10/02/17 10:58 Dose: 180 mg CEFTRIAXONE 1 G/50 ML PREMIX (Ceftriaxone 1 Gm-D5w Bag) 50 mls @ 100 mls/hr IVPB DAILY [facility] Last Admin: 10/03/17 09:51 Dose: 100 mls/hr Sodium Chloride (Normal Saline -) 1,000 mls @ 83 mls/hr IV ASDIR [facility] Last Admin: 10/03/17 06:36 Dose: 83 mls/hr Midodrine (Proamatine -) 5 mg PO TID-MID [facility] Last Admin: 10/03/17 09:51 Dose: 5 mg Pantoprazole Sodium (Protonix -) 40 mg PO DAILY [facility] Last Admin: 10/03/17 09:51 Dose: 40 mg Polyethylene Glycol (Miralax (For Daily Use) -) 17 gm PO DAILY [facility] Last Admin: 10/03/17 09:52 Dose: 17 grams Thiamine HCl (Vitamin B1 -) 100 mg PO HS [facility] Last Admin: 10/02/17 22:12 Dose: 100 mg - Objective Vital Signs: Vital Signs Temperature 97.9 F 10/03/17 09:39 Pulse Rate 78 10/03/17 10:54 Respiratory Rate 18 10/03/17 09:39 Blood Pressure 149/84 10/03/17 10:54 O2 Sat by Pulse Oximetry (%) 98 10/03/17 09:00 Constitutional: Yes: Well Nourished, No Distress, Calm Cardiovascular: Yes: Pulse Irregular Respiratory: Yes: Regular Gastrointestinal: Yes: Normal Bowel Sounds Musculoskeletal: Yes: WNL Extremities: Yes: WNL Edema: No Peripheral Pulses WNL: Yes Neurological: Yes: Alert, Oriented Psychiatric: Yes: Alert, Oriented Labs: CBC, BMP 10/03/17 07:00 10/03/17 07:00 INR, PTT INR 1.26 (0.82-1.09) H 10/03/17 07:00 Problem List - Problems (1) Fall Assessment/Plan: -likely secondary to orthostatic hypotension -physical therapy Code(s): W19.XXXA - UNSPECIFIED FALL, INITIAL ENCOUNTER Qualifiers: Encounter type: subsequent encounter Qualified Code(s): W19.XXXD - Unspecified fall, subsequent encounter (2) Weight loss Assessment/Plan: -EGD and colonoscopy -secondary to disease process -r/o metastatic disease due to history of prostate cancer polyp pathology pending Code(s): R63.4 - ABNORMAL WEIGHT LOSS (3) SILAS (acute kidney injury) Assessment/Plan: -close to his baseline -renal consult Code(s): N17.9 - ACUTE KIDNEY FAILURE, UNSPECIFIED (4) Atrial fibrillation Assessment/Plan: -Chronic -eliquis on hold for hemicolectomy Code(s): I48.91 - UNSPECIFIED ATRIAL FIBRILLATION Qualifiers: Atrial fibrillation type: persistent Qualified Code(s): I48.1 - Persistent atrial fibrillation (5) Orthostatic hypotension Assessment/Plan: -similar episodes in the past -juice's BLLE -midodrine -cardizem on hold -IVF Code(s): I95.1 - ORTHOSTATIC HYPOTENSION Assessment/Plan see problem list
[2017-10-03] MEDS ORDERED: PEG3350/SOD SULF,BICARB,CL/KCL 4,000 ML SOLN.RECON PO ONE (12:00)
--- NOTE | 2017-10-03 12:10 | PN ---
Progress Note, Physician History of Present Illness: Covering for Dr. Cameron Chart reviewed. No events overnight. No BMs, comfortable. Case discussed with Sx - Current Medication List Current Medications: Active Medications Acetaminophen (Tylenol -) 650 mg PO Q6H PRN PRN Reason: PAIN Artificial Tears (Artificial Tears) 1 drop OD BID [facility] Last Admin: 10/03/17 09:51 Dose: 1 drop Bicalutamide (Casodex -) 50 mg PO DAILY [facility] Last Admin: 10/03/17 09:52 Dose: 50 mg Diltiazem HCl (Cardizem Cd -) 180 mg PO DAILY [facility] Last Admin: 10/02/17 10:58 Dose: 180 mg CEFTRIAXONE 1 G/50 ML PREMIX (Ceftriaxone 1 Gm-D5w Bag) 50 mls @ 100 mls/hr IVPB DAILY [facility] Last Admin: 10/03/17 09:51 Dose: 100 mls/hr Sodium Chloride (Normal Saline -) 1,000 mls @ 83 mls/hr IV ASDIR [facility] Last Admin: 10/03/17 06:36 Dose: 83 mls/hr Midodrine (Proamatine -) 5 mg PO TID-MID [facility] Last Admin: 10/03/17 09:51 Dose: 5 mg Pantoprazole Sodium (Protonix -) 40 mg PO DAILY [facility] Last Admin: 10/03/17 09:51 Dose: 40 mg Thiamine HCl (Vitamin B1 -) 100 mg PO HS [facility] Last Admin: 10/02/17 22:12 Dose: 100 mg - Objective Vital Signs: Vital Signs Temperature 97.9 F 10/03/17 09:39 Pulse Rate 78 10/03/17 10:54 Respiratory Rate 18 10/03/17 09:39 Blood Pressure 149/84 10/03/17 10:54 O2 Sat by Pulse Oximetry (%) 98 10/03/17 09:00 Constitutional: Yes: No Distress, Calm Eyes: Yes: Conjunctiva Clear HENT: Yes: Atraumatic Neck: Yes: Supple Gastrointestinal: Yes: Soft. No: Melena, Tenderness, Tenderness, Rebound, Vomiting Neurological: Yes: Alert, Oriented Labs: CBC, BMP 10/03/17 07:00 10/03/17 07:00 INR, PTT INR 1.26 (0.82-1.09) H 10/03/17 07:00 Problem List - Problems (1) Weight loss Code(s): R63.4 - ABNORMAL WEIGHT LOSS (2) Colon polyp Code(s): K63.5 - POLYP OF COLON Assessment/Plan Multiple colon polyps, moderate diverticulosis of the sigmoid colon were found Descending colon polyp is suspicious for advanced features (see endoscopy report ). Sx scheduled for tomorrow, per the surgeon on the case
--- NOTE | 2017-10-03 12:40 | CON.PULM ---
Consult Consult Specialty:: PULM/CCM Referred by:: VICK Reason for Consultation:: Pre-Op clearance - History of Present Illness Chief Complaint: Abnormal endoscopy History of Present Illness: 77 M, COPD due to significant smoking history (not steroid dependent, denies use of BD TX at home, no intubations), possible OSAS but has never been formally screened, AFib on Eliquis, HTN, HLD, DM, CKD, prostate CA with obstructive uropathy, and bilateral orchiectomy in August (no apparent anesthesia complications). Called for clearance prior to anticipated partial left colectomy. Patient denies any AE of his COPD. He is awake and alert in NAD on RA with a saturation of 98% at rest. He does have some intermittent dry cough. Denies CP or SOB. No apparent previous PFTs. 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: Yes: Dementia Cardio/Vascular: Yes: AFIB, CAD, HTN, Hyperlipdemia Pulmonary: Yes: COPD Gastrointestinal: Yes: Diverticulitis Hepatobiliary: Yes: Cirrhosis, Cholelithiasis, Cholecystitis, Choledocholithiasis, Hepatitis A, Hepatitis B, Hepatitis C, Other Renal/: Yes: Renal Inusuff, BPH, Cancer (prostate), UTI Endocrine: Yes: Diabetes Mellitus - Past Surgical History Past Surgical History: Yes: Colectomy (partial left - diverticulitis 1999, had 3 -stage surgery including colostomy, reversal with diverting colostomy, reversal) , Colonoscopy, Colostomy (s/p reversal), Orchiectomy (bilateral Aug 2017), Stent (bilateral ureteral and exchange of right (Jun 2017)), TURP (cystoscopy w/ stent exchange and plasma button vaporization of prostate Jun 2017), Upper Endoscopy - Alcohol/Substance Use Hx Alcohol Use: No (past - quit 30 yrs ago) History of Substance Use: reports: None - Smoking History Smoking history: Former smoker Have you smoked in the past 12 months: Yes Aproximately how many cigarettes per day: 40 (2ppd x 60yrs) If you are a former smoker, when did you quit?: 1 month ago - Social History Usual Living Arrangement: [facility] (was at [facility] for rehab, sched for d/c , planning to live with daughter in 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, 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 Travel: No Home Medications - Allergies Allergies/Adverse Reactions: Allergies Allergy/AdvReac Type Severity Reaction Status Date / Time amoxicillin trihydrate Allergy Mild Verified 09/28/17 08:48 [From Augmentin] potassium clavulanate AdvReac Unknown Verified 09/28/17 08:48 [From Augmentin] - Home Medications Home Medications: Ambulatory Orders Aa/Hydrolyzed Collagen, Whey [Lps Neutral Flavor Liquid] 960 ml PO DAILY Acetaminophen 650 mg PO QID PRN 09/28/17 Apixaban [Eliquis] 5 mg PO BID 09/28/17 Bicalutamide [Casodex] 50 mg PO DAILY 09/28/17 Diltiazem HCl [Cardizem LA] 240 mg PO DAILY 09/28/17 Donepezil HCl [Aricept] 10 mg PO HS 09/28/17 Hypromellose 0.5% Opth Soln [Artificial Tears] 1 drop OD BID 09/28/17 Nitrofurantoin Monohyd/M-Cryst [Nitrofurantoin [place]-Mcr 100 mg] 100 mg PO BID Pantoprazole Sodium 40 mg PO DAILY 09/28/17 Polyethylene Glycol 3350 [Gavilax] 17 gm PO DAILY 09/28/17 Quetiapine Fumarate [Seroquel -] 25 mg PO HS 09/28/17 Thiamine HCl [B-1] 100 mg PO HS 09/28/17 Family Disease History - Family Disease History Family Disease History: Diabetes: Father ( at 57, possibly of DM complications), CA: Mother (lung, at 73 within 5mos of dx, was smoker) Review of Systems - Review of Systems Constitutional: denies: Chills, Fever, Lethargy, Malaise, Night Sweats, Unintentional Wgt. Loss Eyes: reports: No Symptoms HENT: reports: No Symptoms Neck: reports: No Symptoms Cardiovascular: denies: Chest Pain, Edema, Palpitations, Shortness of Breath Respiratory: reports: Cough, Snoring. denies: Exercise Intolerance, Hemoptysis , Orthopnea, SOB, SOB on Exertion, Wheezing Gastrointestinal: reports: Abdominal Pain, Bloating, Diarrhea, Rectal Bleeding. denies: Vomiting Blood Genitourinary: reports: Other (Bilateral orchiectomy) Musculoskeletal: reports: No Symptoms Integumentary: reports: No Symptoms Neurological: reports: No Symptoms Endocrine: reports: No Symptoms Hematology/Lymphatic: reports: No Symptoms Psychiatric: reports: No Symptoms Physical Exam Vital Sings: Vital Signs Temperature 97.9 F 10/03/17 09:39 Pulse Rate 78 10/03/17 10:54 Respiratory Rate 18 10/03/17 09:39 Blood Pressure 149/84 10/03/17 10:54 O2 Sat by Pulse Oximetry (%) 98 10/03/17 09:00 Constitutional: Yes: No Distress, Calm Eyes: Yes: Conjunctiva Clear, EOM Intact HENT: Yes: Atraumatic, Normocephalic Neck: Yes: Supple, Trachea Midline Cardiovascular: Yes: Pulse Irregular Respiratory: Yes: Cough, Diminished. No: Accessory Muscle Use, Rales, Rhonchi, SOB, Stridor, Tachypnea, Wheezes ...Inspection: Yes: WNL ...Clubbing: No Gastrointestinal: Yes: Normal Bowel Sounds, Soft Breast(s): Yes: WNL Musculoskeletal: Yes: WNL Extremities: Yes: WNL Edema: No Peripheral Pulses WNL: Yes Integumentary: Yes: WNL Neurological: Yes: WNL, Alert, Oriented ...Motor Strength: WNL Psychiatric: Yes: WNL, Alert, Oriented Labs: CBC, BMP 10/03/17 07:00 10/03/17 07:00 Imaging - Results Chest X-ray: Report Reviewed, Image Reviewed (Pleural plaquing) Problem List - Problems (1) Colon polyp Code(s): K63.5 - POLYP OF COLON (2) Fall Code(s): W19.XXXA - UNSPECIFIED FALL, INITIAL ENCOUNTER Qualifiers: Encounter type: subsequent encounter Qualified Code(s): W19.XXXD - Unspecified fall, subsequent encounter (3) History of open sigmoidectomy Code(s): Z98.890 - OTHER SPECIFIED POSTPROCEDURAL STATES; Z90.49 - ACQUIRED ABSENCE OF OTHER SPECIFIED PARTS OF DIGESTIVE TRACT (4) 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 (5) Asbestos-induced pleural plaque Code(s): J92.0 - PLEURAL PLAQUE WITH PRESENCE OF ASBESTOS (6) Atrial fibrillation Code(s): I48.91 - UNSPECIFIED ATRIAL FIBRILLATION Qualifiers: Atrial fibrillation type: persistent Qualified Code(s): I48.1 - Persistent atrial fibrillation (7) CVA (cerebral infarction) Code(s): I63.9 - CEREBRAL INFARCTION, UNSPECIFIED Qualifiers: Cerebral infarction mechanism: unspecified mechanism Qualified Code(s): I63.9 - Cerebral infarction, unspecified (8) Chronic kidney disease (CKD) Code(s): N18.9 - CHRONIC KIDNEY DISEASE, UNSPECIFIED Qualifiers: Chronic kidney disease stage: stage 3 (moderate) Qualified Code(s): N18.3 - Chronic kidney disease, stage 3 (moderate) (9) Diabetes Code(s): E11.9 - TYPE 2 DIABETES MELLITUS WITHOUT COMPLICATIONS Qualifiers: Diabetes mellitus type: type 2 Diabetes mellitus complication status: without complication (10) Diastolic CHF Code(s): I50.30 - UNSPECIFIED DIASTOLIC (CONGESTIVE) HEART FAILURE Qualifiers: Congestive heart failure chronicity: chronic Qualified Code(s): I50.32 - Chronic diastolic (congestive) heart failure (11) HTN (hypertension) Code(s): I10 - ESSENTIAL (PRIMARY) HYPERTENSION Qualifiers: Hypertension type: essential hypertension Qualified Code(s): I10 - Essential (primary) hypertension (12) Hypercholesterolemia Code(s): E78.00 - PURE HYPERCHOLESTEROLEMIA, UNSPECIFIED (13) Hyperlipidemia associated with type 2 diabetes mellitus Code(s): E11.69 - TYPE 2 DIABETES MELLITUS WITH OTHER SPECIFIED COMPLICATION; E78.5 - HYPERLIPIDEMIA, UNSPECIFIED (14) Hypothyroidism Code(s): E03.9 - HYPOTHYROIDISM, UNSPECIFIED Qualifiers: Hypothyroidism type: unspecified Qualified Code(s): E03.9 - Hypothyroidism , unspecified (15) Prostate cancer Code(s): C61 - MALIGNANT NEOPLASM OF PROSTATE (16) Status post orchiectomy Code(s): Z90.79 - ACQUIRED ABSENCE OF OTHER GENITAL ORGAN(S) (17) COPD (chronic obstructive pulmonary disease) Code(s): J44.9 - CHRONIC OBSTRUCTIVE PULMONARY DISEASE, UNSPECIFIED Assessment/Plan There is no Pulmonary contraindication for OR. Patient received anesthesia in August with no apparent issues. No need for systemic steroids. BD TX PRN Valdemar may have OSAS, but has never been formally tested. Standard precautions suggested Supplemental O2 as needed Incentive spirometry and Pulmonary toilet post-op Will assess for monitored setting post-op Will follow Thank you. Dr Zepeda
[2017-10-03] MEDS ORDERED: ALBUTEROL SO4 0.083% IH SOL 2.5 MG/3 ML VIAL.NEB. NEB PRN (12:49)
--- NOTE | 2017-10-03 12:55 | PN ---
Progress Note (short form) - Note Progress Note: Renal follow up for CKD Pt seen and examined at the bedside awake and alert no acute complaints Vital Signs Temperature 97.9 F 10/03/17 09:39 Pulse Rate 78 10/03/17 10:54 Respiratory Rate 18 10/03/17 09:39 Blood Pressure 149/84 10/03/17 10:54 O2 Sat by Pulse Oximetry (%) 98 10/03/17 09:00 Intake & Output 09/30/17 10/01/17 10/02/17 10/03/17 23:59 23:59 23:59 23:59 Intake Total 930 3410 2155 1500 Output Total 400 6190 618 4993 Balance 530 2400 1855 500 Weight 88.632 kg 88.054 kg 88.541 kg 95.056 kg NAD RRR CTA soft NT No LE edema CBC, BMP 10/03/17 07:00 10/03/17 07:00 Current Medications Acetaminophen (Tylenol -) 650 mg PO Q6H PRN PRN Reason: PAIN Albuterol Sulfate (Ventolin 0.083% Nebulizer Soln -) 1 amp NEB Q4H PRN PRN Reason: SHORT OF BREATH/WHEEZING Artificial Tears (Artificial Tears) 1 drop OD BID [facility] Last Admin: 10/03/17 09:51 Dose: 1 drop Bicalutamide (Casodex -) 50 mg PO DAILY [facility] Last Admin: 10/03/17 09:52 Dose: 50 mg Diltiazem HCl (Cardizem Cd -) 180 mg PO DAILY [facility] Last Admin: 10/02/17 10:58 Dose: 180 mg Erythromycin (Patrice-Tab -) 1,000 mg PO 1300,1400,2200 [facility] Stop: 10/03/17 22:01 CEFTRIAXONE 1 G/50 ML PREMIX (Ceftriaxone 1 Gm-D5w Bag) 50 mls @ 100 mls/hr IVPB DAILY [facility] Last Admin: 10/03/17 09:51 Dose: 100 mls/hr Sodium Chloride (Normal Saline -) 1,000 mls @ 83 mls/hr IV ASDIR [facility] Last Admin: 10/03/17 06:36 Dose: 83 mls/hr Midodrine (Proamatine -) 5 mg PO TID-MID [facility] Last Admin: 10/03/17 09:51 Dose: 5 mg Neomycin Sulfate (Mycifradin -) 1,000 mg PO 1300,1400,2200 [facility] Stop: 10/03/17 22:01 Pantoprazole Sodium (Protonix -) 40 mg PO DAILY [facility] Last Admin: 10/03/17 09:51 Dose: 40 mg Thiamine HCl (Vitamin B1 -) 100 mg PO HS [facility] Last Admin: 10/02/17 22:12 Dose: 100 mg 77 year old gentleman with PMhx fo CKD, SILAS (now improved), Hypertension, DM, COPD, Dementia, Prostate Ca, CVA, Afib with RVR who presented with fall at CT and found to have weight loss with Cr of 1.7. #CKD Stage 3 with Hx of SILAS from ATN Cr improved to 1.4 continue gentle IVF pending surgical procedure #s/p FAll supportive care #Weight Loss/Colon Polyps Gi and Surgery following for possible surgical intervention #Hypertension BP ok but is orthostatic positive on Midodrine on IVF Cardiology following Gabriela held this am pending cardiology eval #UTI on Ceftriaxone urine culture pending Donta Carmona DO
[2017-10-03] MEDS ORDERED: ERYTHROMYCIN BASE 500 MG TABLET PO SCH (13:00)
--- NOTE | 2017-10-03 13:00 | PN ---
Progress Note, Physician Chief Complaint: Await surgery tomorrow Periods of orthostasis History of Present Illness: Patient appears comfortable Denies chest pain, SOB or palpitations - Current Medication List Current Medications: Active Medications Acetaminophen (Tylenol -) 650 mg PO Q6H PRN PRN Reason: PAIN Albuterol Sulfate (Ventolin 0.083% Nebulizer Soln -) 1 amp NEB Q4H PRN PRN Reason: SHORT OF BREATH/WHEEZING Artificial Tears (Artificial Tears) 1 drop OD BID [facility] Last Admin: 10/03/17 09:51 Dose: 1 drop Bicalutamide (Casodex -) 50 mg PO DAILY [facility] Last Admin: 10/03/17 09:52 Dose: 50 mg Diltiazem HCl (Cardizem Cd -) 180 mg PO DAILY [facility] Last Admin: 10/02/17 10:58 Dose: 180 mg Erythromycin (Patrice-Tab -) 1,000 mg PO 1300,1400,2200 [facility] Stop: 10/03/17 22:01 CEFTRIAXONE 1 G/50 ML PREMIX (Ceftriaxone 1 Gm-D5w Bag) 50 mls @ 100 mls/hr IVPB DAILY [facility] Last Admin: 10/03/17 09:51 Dose: 100 mls/hr Sodium Chloride (Normal Saline -) 1,000 mls @ 83 mls/hr IV ASDIR [facility] Last Admin: 10/03/17 06:36 Dose: 83 mls/hr Midodrine (Proamatine -) 5 mg PO TID-MID [facility] Last Admin: 10/03/17 09:51 Dose: 5 mg Neomycin Sulfate (Mycifradin -) 1,000 mg PO 1300,1400,2200 [facility] Stop: 10/03/17 22:01 Pantoprazole Sodium (Protonix -) 40 mg PO DAILY [facility] Last Admin: 10/03/17 09:51 Dose: 40 mg Thiamine HCl (Vitamin B1 -) 100 mg PO HS [facility] Last Admin: 10/02/17 22:12 Dose: 100 mg - Objective Vital Signs: Vital Signs Temperature 97.9 F 10/03/17 09:39 Pulse Rate 78 10/03/17 10:54 Respiratory Rate 18 10/03/17 09:39 Blood Pressure 149/84 10/03/17 10:54 O2 Sat by Pulse Oximetry (%) 98 10/03/17 09:00 Eyes: Yes: PERRL Neck: Yes: Supple Cardiovascular: Yes: Pulse Irregular, S1, S2 Respiratory: Yes: CTA Bilaterally Gastrointestinal: Yes: Normal Bowel Sounds, Soft. No: Tenderness Edema: No Additional Findings/Remarks: - Review of Systems Constitutional: denies: Chills, Fever Cardiovascular: denies: Chest Pain, Palpitations, Shortness of Breath Respiratory: denies: Cough, Hemoptysis, Orthopnea, PND, SOB, SOB on Exertion Gastrointestinal: denies: Abdominal Pain, Diarrhea, Melena, Rectal Bleeding. denies: Constipation, Nausea, Vomiting Genitourinary: denies: Dysuria, Hematuria Musculoskeletal: denies: Joint Pain Neurological: denies: Dizziness, Headache, Seizure, Syncope Labs: CBC, BMP 10/03/17 07:00 10/03/17 07:00 INR, PTT INR 1.26 (0.82-1.09) H 10/03/17 07:00 Problem List - Problems (1) Fall Code(s): W19.XXXA - UNSPECIFIED FALL, INITIAL ENCOUNTER Qualifiers: Qualified Code(s): W19.XXXD - Unspecified fall, subsequent encounter (2) Pre-procedural cardiovascular examination Code(s): Z01.810 - ENCOUNTER FOR PREPROCEDURAL CARDIOVASCULAR EXAMINATION (3) Weight loss Code(s): R63.4 - ABNORMAL WEIGHT LOSS (4) Asbestos-induced pleural plaque Code(s): J92.0 - PLEURAL PLAQUE WITH PRESENCE OF ASBESTOS (5) Atrial fibrillation Code(s): I48.91 - UNSPECIFIED ATRIAL FIBRILLATION Qualifiers: Qualified Code(s): I48.1 - Persistent atrial fibrillation (6) CVA (cerebral infarction) Code(s): I63.9 - CEREBRAL INFARCTION, UNSPECIFIED Qualifiers: Qualified Code(s): I63.9 - Cerebral infarction, unspecified (7) Chronic kidney disease (CKD) Code(s): N18.9 - CHRONIC KIDNEY DISEASE, UNSPECIFIED Qualifiers: Qualified Code(s): N18.3 - Chronic kidney disease, stage 3 (moderate) (8) Diabetes Code(s): E11.9 - TYPE 2 DIABETES MELLITUS WITHOUT COMPLICATIONS (9) Generalized weakness Code(s): R53.1 - WEAKNESS (10) HTN (hypertension) Code(s): I10 - ESSENTIAL (PRIMARY) HYPERTENSION Qualifiers: Qualified Code(s): I10 - Essential (primary) hypertension (11) Hypercholesterolemia Code(s): E78.00 - PURE HYPERCHOLESTEROLEMIA, UNSPECIFIED (12) Hypothyroidism Code(s): E03.9 - HYPOTHYROIDISM, UNSPECIFIED Qualifiers: Qualified Code(s): E03.9 - Hypothyroidism, unspecified Assessment/Plan 1. Inadvertent weight loss - remaining polyps 2. Atrial fibrillation with variable ventricular response 3. Hypertension 4. Hypercholesterolemia 5. 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 Hypothyroidism 7. 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 Chronic kidney disease 9. History of diverticulitis 10. Positional dizziness post mechanical fall and orthostatic hypotension PLAN: 1. Cardizem CD has been stopped as per discussion. May use short acting Cardizem if needed 2. Hold Eliquis 5 bid pre-procedure and resume once post-op hemostasis achieved 3.There is no absolute contraindication in proceeding with planned surgical intervention and use of general anesthesia in view of absence of ischemic symptoms, decompensated congestive heart failure or malignant arrhythmias. Post operative cardiac enzymes, ECG and cardiac monitoring on telemetry recommended. Further plans are to follow and will follow with you. Continue to check orthostasis. May resume Aricept. Continue Midodrine Han Nowak MD
[2017-10-03] MEDS: ERYTHROMYCIN BASE 250 MG TAB PO SCH ×3 (13:56→21:48)
[2017-10-03] MEDS: NEOMYCIN SO4 500 MG TABLET PO SCH ×3 (15:00→21:50)
--- NOTE | 2017-10-03 16:49 | PATH ---
Surgical Pathology Report Patient Name: EFREN BARKSDALE [facility]. Rec. #: [id number] /Age/Gender: 1940 (Age: 77) / M Account: [id number] Location: [address] [place] [address] Taken: 10/02/2017 Received: 10/02/2017 Reported: 10/03/2017 Physicians: Maye Castro M.D. Specimen(s) Received A: ASCENDING COLON POLYPS #1 B: ASCENDING COLON POLYP #2 C: ASCENDING COLON POLYP #3 D: DESCENDING COLON POLYP @ 60 CM. E: SIGMOID COLON POLYP @ 22 CM. Clinical History Preoperative diagnosis: Weight loss Postoperative diagnosis: Colon polyps, diverticulosis Final Diagnosis A. ASCENDING COLON, POLYP #1, BIOPSY: TUBULAR ADENOMA. B. ASCENDING COLON, POLYP #2, BIOPSY: TUBULAR ADENOMA. C ASCENDING COLON, POLYP #3, BIOPSY: TUBULAR ADENOMA. D. DESCENDING COLON, POLYP @ 60 CM, BIOPSY: TUBULAR ADENOMA(S). E. SIGMOID COLON, POLYP @ 22 CM, BIOPSY.: TUBULOVILLOUS ADENOMA(S). Electronically Signed Alley Cui M.D. Gross Description A. Received in formalin labeled "ascending colon polyp #1," is a 1.0 x 0.7 x 0.2 cm aggregate of valdez soft tissue fragments. The formalin is filtered and the specimen is entirely submitted in one cassette. B. Received in formalin labeled "ascending colon polyp #2," are 3 valdez, polypoid portions of soft tissue ranging from 0.4-0.6 cm in greatest dimension. The specimens are submitted in toto in one cassette. C. Received in formalin labeled "ascending colon polyp #3," is a 2.0 x 1.5 x 0.2 cm aggregate of valdez soft tissue fragments admixed with organic debris. The formalin is filtered and the specimen is entirely submitted in one cassette. D. Received in formalin, labeled "descending colon polyp at 60 cm" are 6 valdez, irregular portions of soft tissue ranging from 0.1-0.6 cm. in greatest dimension. The specimens are submitted in toto in one cassette. E. Received in formalin labeled "sigmoid colon polyp x2," is a 1.3 x 0.9 x 0.9 cm valdez, polypoid portion of soft tissue. Also received within the same container are 6 valdez, irregular portions of soft tissue ranging from 0.1-0.4 cm in greatest dimension. The specimen is entirely submitted in 2 cassettes as follows: 1-six smaller portions of tissue; 2-one whole trisected polyp. 10/02/201710/02/2017
[2017-10-03] MEDS ORDERED: INSULIN (NOVOLOG) ASPART 100 UNITS/ML 10ML VIAL ONE (19:10)
[2017-10-03] MEDS: THIAMINE HCL 100 MG TABLET (FP) PO SCH (21:46)
[2017-10-04] MEDS: SODIUM CHLORIDE 1,000 ML IV SCH ×2 (05:35→18:09)
[2017-10-04 08:06] LABS: ANION GAP 9 (8-16); BLOOD UREA NITROGEN 12 mg/dL (7-18); CALCIUM 9.1 mg/dL (8.5-10.1); CHLORIDE 107 mmol/L (98-107); CO2 27 mmol/L (21-32); CREATININE 1.3 mg/dL (0.7-1.3); GLUCOSE,RANDOM 79 mg/dL (74-106); POTASSIUM 3.9 mmol/L (3.5-5.1); SODIUM 143 mmol/L (136-145)
--- NOTE | 2017-10-04 09:30 | PN ---
Progress Note (short form) - Note Progress Note: Neurology History of Present Illness 77 yo M with multiple medical comorbidities including HLD,HTN, NIDDM, COPD, Alzehiemers dementia, metastatic prostate ca. (on chemotherapy as of 07/30), CVA , and A-fib w/ RvR ( on Eliquis ) who arrives from [facility]/ [facility] with head injury 2/2 mechanical fall. 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 When attempting to grab the hand rail and stand up for a second time he fell again. Complains of posterior WALLS. Denies LOC, and was on the ground for 2- 3 minutes before nursing staff found patient and assisted him to wheelchair. Has been experiencing intermittent lightheadedness for the past 3-4 months upon standing. Normally ambulates without assistive devices. Denies neck/back/ext/abdominal pain or trauma, tongue laceration, teeth avulsion, WALLS, N/V, vision change, tinnitus, new onset weakness, sensory disturbance. Denies fevers/chills, diarrhea, constipation. Denies alcohol use. Recent admission for BL scrotal orchiectomies (08/23) 2/[address] head completed in ER and reviewed. Did not show any intracranial bleeding. CT C spine reviewed and showed no acute Fx, grade 1 anterolistesis noted also with T2 compression, possibly chronic. Mental status remains at baseline and no new neurologic events overnight. Remains on Ceftriaxone. Active Medications Acetaminophen (Tylenol -) 650 mg PO Q6H PRN PRN Reason: PAIN Albuterol Sulfate (Ventolin 0.083% Nebulizer Soln -) 1 amp NEB Q4H PRN PRN Reason: SHORT OF BREATH/WHEEZING Artificial Tears (Artificial Tears) 1 drop OD BID [facility] Last Admin: 10/03/17 21:46 Dose: 1 drop Bicalutamide (Casodex -) 50 mg PO DAILY [facility] Last Admin: 10/03/17 09:52 Dose: 50 mg Diltiazem HCl (Cardizem Cd -) 180 mg PO DAILY [facility] Last Admin: 10/02/17 10:58 Dose: 180 mg CEFTRIAXONE 1 G/50 ML PREMIX (Ceftriaxone 1 Gm-D5w Bag) 50 mls @ 100 mls/hr IVPB DAILY [facility] Last Admin: 10/03/17 09:51 Dose: 100 mls/hr Sodium Chloride (Normal Saline -) 1,000 mls @ 83 mls/hr IV ASDIR [facility] Last Admin: 10/04/17 05:35 Dose: 83 mls/hr Midodrine (Proamatine -) 10 mg PO TID-MID [facility] Last Admin: 10/03/17 17:34 Dose: 10 mg Pantoprazole Sodium (Protonix -) 40 mg PO DAILY [facility] Last Admin: 10/03/17 09:51 Dose: 40 mg Thiamine HCl (Vitamin B1 -) 100 mg PO HS [facility] Last Admin: 10/03/17 21:46 Dose: 100 mg *Physical Exam Vital Signs Period Temp Pulse Resp BP Sys/Ching Pulse Ox Last 24 Hr 97.3 F-98.1 F 66-100 18-20 90-154/45-102 98 GENERAL: Awake, alert, and fully oriented, in no acute distress HEAD: 5 cm sup. L side occiptial superficial, vertical laceration, with no sub q involvement. 4 cm inf R sided occipital superficial, horizontal laceration, with no sub q involvement. Normocephalic EYES: PERRLA, EOMI, sclera anicteric, conjunctiva clear ENT: Auricles normal inspection, hearing grossly normal, nares patent, oropharynx clear without exudates. Moist mucosa. NECK: Normal ROM, supple, no lymphadenopathy, JVD, or masses LUNGS: No distress, speaks full sentences, clear to auscultation bilaterally HEART: Regular rate and rhythm, normal S1 and S2, no murmurs, rubs or gallops, peripheral pulses normal and equal bilaterally. ABDOMEN: Soft, nontender, normoactive bowel sounds. No guarding, no rebound. No masses EXTREMITIES : Normal inspection, Normal range of motion, no edema. No clubbing or cyanosis. NEUROLOGICAL: Cranial nerves II through XII grossly intact. Normal speech, no focal sensorimotor deficits. Absent dysmetria on FTN. SKIN: Warm, Dry, normal turgor, no rashes or lesions noted. CBCD WBC 8.9 K/mm3 (4.0-10.0) 10/03/17 07:00 RBC 3.46 M/mm3 (4.00-5.60) L 10/03/17 07:00 Hgb 10.3 GM/dL (11.7-16.9) L 10/03/17 07:00 Hct 30.7 % (35.4-49) L 10/03/17 07:00 MCV 88.5 fl (80-96) 10/03/17 07:00 MCHC 33.6 g/dl (32.0-35.9) 10/03/17 07:00 RDW 12.8 % (11.9-15.9) 10/03/17 07:00 Plt Count 290 K/MM3 (134-434) 10/03/17 07:00 MPV 7.7 fl (7.5-11.1) 10/03/17 07:00 CMP Sodium 143 mmol/L (136-145) 10/04/17 07:10 Potassium 3.9 mmol/L (3.5-5.1) 10/04/17 07:10 Chloride 107 mmol/L (98-107) 10/04/17 07:10 Carbon Dioxide 27 mmol/L (21-32) 10/04/17 07:10 Anion Gap 9 (8-16) 10/04/17 07:10 BUN 12 mg/dL (7-18) 10/04/17 07:10 Creatinine 1.3 mg/dL (0.7-1.3) 10/04/17 07:10 Creat Clearance w eGFR 49.41 (>60) 10/03/17 07:00 Calcium 9.1 mg/dL (8.5-10.1) 10/04/17 07:10 Total Bilirubin 0.3 mg/dL (0.2-1.0) 10/03/17 07:00 AST 7 U/L (15-37) L D 10/03/17 07:00 ALT 10 U/L (12-78) L 10/03/17 07:00 Alkaline Phosphatase 92 U/L (45-117) 10/03/17 07:00 Total Protein 5.5 g/dl (6.4-8.2) L 10/03/17 07:00 Albumin 2.5 g/dl (3.4-5.0) L 10/03/17 07:[address] C spine reviewed Medical Decision Making 77 yo M with multiple medical comorbidities including HLD,HTN, NIDDM, COPD, Alzehiemers dementia, metastatic prostate ca. (on chemotherapy as of 07/30), CVA , and A-fib w/ RvR ( on Eliquis ) who arrives from [facility]/ [facility] with head injury 2/2 mechanical fall. 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 When attempting to grab the hand rail and stand up for a second time he fell again. Complains of posterior WALLS. Denies LOC, and was on the ground for 2- 3 minutes before nursing staff found patient and assisted him to wheelchair. Has been experiencing intermittent lightheadedness for the past 3-4 months upon standing. Normally ambulates without assistive devices. Denies neck/back/ext/ abdominal pain or trauma, tongue laceration, teeth avulsion, WALLS, N/V, vision change, tinnitus, new onset weakness, sensory disturbance. CT head completed in ER and reviewed. Did not show any intracranial bleeding. CT C spine reviewed and showed no acute Fx, grade 1 anterolistesis noted also with T2 complression, possibly chronic. Pain mgmt recommended. Physical therapy may be beneficial. Fall precautions. Laceration repaired, monitor for any infections. No intracranial bleeding, will not require AEDS, does not appear to be seizure event. Colonscopy completed, report reviewed, GI followup. Neurologically stable. Mental status at baseline and has remained so. Will sign off at this time, continue medical mgmt.
[2017-10-04] MEDS ORDERED: PT OWN MED DRAWER 7, Y5N ONE ×2 (09:55→20:07)
--- NOTE | 2017-10-04 09:55 | PN ---
Progress Note, Physician Chief Complaint: Fall, orthostatic hypotension History of Present Illness: NAD, in bed EGD completed had colonoscopy today-5 large colon polyps and diverticulosis were found. The center of the 3 cm polyp in the descending colon appeared to be anchored to the deep layers of the colon wall and thus could not be completely lifted with submucosal injection of normal saline. The resection therefore was incomplete. going for surgery today Pulmonary and cardiology optimization needed prior to sx cardizem on hol still orthostatic restart seroquel and aricept, pt has been orthostatic prior to being started on these meds - Current Medication List Current Medications: Active Medications Acetaminophen (Tylenol -) 650 mg PO Q6H PRN PRN Reason: PAIN Albuterol Sulfate (Ventolin 0.083% Nebulizer Soln -) 1 amp NEB Q4H PRN PRN Reason: SHORT OF BREATH/WHEEZING Artificial Tears (Artificial Tears) 1 drop OD BID [facility] Last Admin: 10/03/17 21:46 Dose: 1 drop Bicalutamide (Casodex -) 50 mg PO DAILY [facility] Last Admin: 10/03/17 09:52 Dose: 50 mg Diltiazem HCl (Cardizem Cd -) 180 mg PO DAILY [facility] Last Admin: 10/02/17 10:58 Dose: 180 mg CEFTRIAXONE 1 G/50 ML PREMIX (Ceftriaxone 1 Gm-D5w Bag) 50 mls @ 100 mls/hr IVPB DAILY [facility] Last Admin: 10/03/17 09:51 Dose: 100 mls/hr Sodium Chloride (Normal Saline -) 1,000 mls @ 83 mls/hr IV ASDIR [facility] Last Admin: 10/04/17 05:35 Dose: 83 mls/hr Midodrine (Proamatine -) 10 mg PO TID-MID [facility] Last Admin: 10/03/17 17:34 Dose: 10 mg Pantoprazole Sodium (Protonix -) 40 mg PO DAILY [facility] Last Admin: 10/03/17 09:51 Dose: 40 mg Thiamine HCl (Vitamin B1 -) 100 mg PO HS [facility] Last Admin: 10/03/17 21:46 Dose: 100 mg - Objective Vital Signs: Vital Signs Temperature 98.1 F 10/04/17 06:00 Pulse Rate 75 10/04/17 06:00 Respiratory Rate 18 10/04/17 06:00 Blood Pressure 149/89 10/04/17 06:00 O2 Sat by Pulse Oximetry (%) 98 10/03/17 21:00 Constitutional: Yes: Well Nourished, No Distress, Calm Labs: CBC, BMP 10/03/17 07:00 10/04/17 07:10 INR, PTT INR 1.26 (0.82-1.09) H 10/03/17 07:00 Problem List - Problems (1) Fall Assessment/Plan: -likely secondary to orthostatic hypotension -on midodrine now -cardizem on hold -physical therapy Code(s): W19.XXXA - UNSPECIFIED FALL, INITIAL ENCOUNTER Qualifiers: Encounter type: subsequent encounter Qualified Code(s): W19.XXXD - Unspecified fall, subsequent encounter (2) Weight loss Assessment/Plan: -EGD and colonoscopy -secondary to disease process -r/o metastatic disease due to history of prostate cancer polyp pathology pending Code(s): R63.4 - ABNORMAL WEIGHT LOSS (3) SILAS (acute kidney injury) Assessment/Plan: -close to his baseline -improved after IVF -renal consult Code(s): N17.9 - ACUTE KIDNEY FAILURE, UNSPECIFIED (4) Atrial fibrillation Assessment/Plan: -Chronic -eliquis on hold for hemicolectomy Code(s): I48.91 - UNSPECIFIED ATRIAL FIBRILLATION Qualifiers: Atrial fibrillation type: persistent Qualified Code(s): I48.1 - Persistent atrial fibrillation (5) Orthostatic hypotension Assessment/Plan: -similar episodes in the past -juice's BLLE -midodrine -cardizem on hold -IVF Code(s): I95.1 - ORTHOSTATIC HYPOTENSION Assessment/Plan see problem list
[2017-10-04] MEDS: ARTIFICIAL TEARS (POLYVINYL ALCOHOL 1.4%) OPTH DROPS OD SCH ×2 (10:02→21:12)
[2017-10-04] MEDS: CEFTRIAXONE 1 G/50 ML PREMIX 50 ML IVPB SCH (10:02)
[2017-10-04] MEDS: MIDODRINE HCL 5 MG TABLET PO SCH ×2 (10:02→14:59)
[2017-10-04] MEDS: BICALUTAMIDE 50 MG TABLET (FP) PO SCH (10:02)
[2017-10-04] MEDS: PANTOPRAZOLE 40 MG TABLET (FP) PO SCH (10:02)
[2017-10-04] MEDS ORDERED: ROCURONIUM BROMIDE 50 MG/5 ML VIAL ONE ×2 (11:09→12:11)
[2017-10-04] MEDS ORDERED: fentaNYL CITRATE 250 MCG/5 ML VIAL ONE (11:09)
[2017-10-04] MEDS ORDERED: PROPOFOL 20 ML ONE (11:25)
[2017-10-04] MEDS ORDERED: CEFOXITIN SODIUM 2 GM IVPB ONE (11:35)
[2017-10-04] MEDS ORDERED: cefOXitin SODIUM 2 GM VIAL (RESTRICTED TO ID) IVPB ONE ×3 (11:50→18:00)
--- NOTE | 2017-10-04 12:13 | PN ---
Progress Note, Physician History of Present Illness: Underwent partial transverse colectomy for incomplete endoscopically resected colon polyp/tubular adenoma, comfortable post-op. - Current Medication List Current Medications: Active Medications Acetaminophen (Tylenol -) 650 mg PO Q6H PRN PRN Reason: PAIN Albuterol Sulfate (Ventolin 0.083% Nebulizer Soln -) 1 amp NEB Q4H PRN PRN Reason: SHORT OF BREATH/WHEEZING Artificial Tears (Artificial Tears) 1 drop OD BID [facility] Last Admin: 10/04/17 10:02 Dose: 1 drop Bicalutamide (Casodex -) 50 mg PO DAILY [facility] Last Admin: 10/04/17 10:02 Dose: 50 mg Diltiazem HCl (Cardizem Cd -) 180 mg PO DAILY [facility] Last Admin: 10/02/17 10:58 Dose: 180 mg Donepezil HCl (Aricept -) 10 mg PO [facility] CEFTRIAXONE 1 G/50 ML PREMIX (Ceftriaxone 1 Gm-D5w Bag) 50 mls @ 100 mls/hr IVPB DAILY [facility] Last Admin: 10/04/17 10:02 Dose: 100 mls/hr Sodium Chloride (Normal Saline -) 1,000 mls @ 83 mls/hr IV ASDIR [facility] Last Admin: 10/04/17 05:35 Dose: 83 mls/hr Midodrine (Proamatine -) 10 mg PO TID-MID [facility] Last Admin: 10/04/17 10:02 Dose: 10 mg Pantoprazole Sodium (Protonix -) 40 mg PO DAILY [facility] Last Admin: 10/04/17 10:02 Dose: 40 mg Quetiapine Fumarate (Seroquel -) 25 mg PO [facility] Thiamine HCl (Vitamin B1 -) 100 mg PO [facility] Last Admin: 10/03/17 21:46 Dose: 100 mg - Objective Vital Signs: Vital Signs Temperature 97.2 F L 10/04/17 10:00 Pulse Rate 87 10/04/17 10:00 Respiratory Rate 20 10/04/17 10:00 Blood Pressure 150/90 10/04/17 10:00 O2 Sat by Pulse Oximetry (%) 97 10/04/17 09:00 Constitutional: Yes: No Distress, Calm Neck: Yes: Supple Cardiovascular: Yes: Pulse Irregular Respiratory: Yes: Regular, Diminished Gastrointestinal: Yes: Hypoactive Bowel Sounds, Other (Post-op) Edema: No Labs: CBC, BMP 10/03/17 07:00 10/04/17 07:10 INR, PTT INR 1.26 (0.82-1.09) H 10/03/17 07:00 Problem List - Problems (1) Fall Code(s): W19.XXXA - UNSPECIFIED FALL, INITIAL ENCOUNTER Qualifiers: Encounter type: subsequent encounter Qualified Code(s): W19.XXXD - Unspecified fall, subsequent encounter (2) Weight loss Code(s): R63.4 - ABNORMAL WEIGHT LOSS (3) Adenocarcinoma of prostate Code(s): C61 - MALIGNANT NEOPLASM OF PROSTATE (4) Atrial fibrillation Code(s): I48.91 - UNSPECIFIED ATRIAL FIBRILLATION Qualifiers: Atrial fibrillation type: persistent Qualified Code(s): I48.1 - Persistent atrial fibrillation (5) Chronic kidney disease (CKD) Code(s): N18.9 - CHRONIC KIDNEY DISEASE, UNSPECIFIED Qualifiers: Chronic kidney disease stage: stage 3 (moderate) Qualified Code(s): N18.3 - Chronic kidney disease, stage 3 (moderate) (6) Diastolic CHF Code(s): I50.30 - UNSPECIFIED DIASTOLIC (CONGESTIVE) HEART FAILURE Qualifiers: Congestive heart failure chronicity: chronic Qualified Code(s): I50.32 - Chronic diastolic (congestive) heart failure (7) HTN (hypertension) Code(s): I10 - ESSENTIAL (PRIMARY) HYPERTENSION Qualifiers: Hypertension type: essential hypertension Qualified Code(s): I10 - Essential (primary) hypertension (8) Hypercholesterolemia Code(s): E78.00 - PURE HYPERCHOLESTEROLEMIA, UNSPECIFIED (9) Hypothyroidism Code(s): E03.9 - HYPOTHYROIDISM, UNSPECIFIED Qualifiers: Hypothyroidism type: unspecified Qualified Code(s): E03.9 - Hypothyroidism , unspecified (10) Orthostatic hypotension Code(s): I95.1 - ORTHOSTATIC HYPOTENSION (11) Status post orchiectomy Code(s): Z90.79 - ACQUIRED ABSENCE OF OTHER GENITAL ORGAN(S) (12) Status post partial colectomy Code(s): Z90.49 - ACQUIRED ABSENCE OF OTHER SPECIFIED PARTS OF DIGESTIVE TRACT (13) Colon polyps Code(s): K63.5 - POLYP OF COLON Qualifiers: Colon polyp type: unspecified Colon location: descending Qualified Code(s ): D12.4 - Benign neoplasm of descending colon Assessment/Plan 1. Inadvertent weight loss - remaining polyps s/p partial transverse colectomy 2. Atrial fibrillation with variable ventricular response 3. Hypertension 4. Hypercholesterolemia 5. 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 Hypothyroidism 7. 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 Chronic kidney disease 9. History of diverticulitis 10. Positional dizziness post mechanical fall and orthostatic hypotension PLAN: 1. Resume Eliquis 5 bid once post-op hemostasis has been achieved 2. Await bowel function recovery, early ambulation, analgesia as needed
[2017-10-04] MEDS ORDERED: ONDANSETRON 4 MG/2 ML VIAL IVPUSH PRN ×2 (13:56→15:27)
[2017-10-04] MEDS ORDERED: NEOSTIGMINE METHYLSULFATE 0.5 MG/ML - 10 ML MDV ONE (14:31)
--- NOTE | 2017-10-04 14:50 | OP ---
Operative Note - Note: Operative Date: 10/04/17 Pre-Operative Diagnosis: incompletely endoscopically resected colon polyp/ tubular adenoma Operation: partial transverse colectomy Findings: polyp in transverse colon, proximal to splenic flexure; segment resected with stapled anastomosis Post-Operative Diagnosis: Same as Pre-op Surgeon: Micheal Thomas Welder Tack: Jesús Cardona Anesthesiologist/ALCOHOL RUBBER: Juanita Garcia MD Anesthesia: General Specimens Removed: portion of transverse colon to pathology Estimated Blood Loss (mls): 200 Drains & Tubes with Location: NGT, [place] Drains, Volume Out (mls): 300 (UOP) Fluid Volume Replaced (mls): 3,000 (crystalloid) Operative Report Dictated: Yes
[2017-10-04] MEDS ORDERED: morphine CARPU-JECT 4 MG/1 ML DISP.SYRIN IVPUSH PRN ×2 (14:57→15:27)
[2017-10-04] MEDS ORDERED: ALBUTEROL SO4 0.083% IH SOL 2.5 MG/3 ML VIAL.NEB. NEB PRN (15:27)
[2017-10-04 15:49] LABS: BASO % 1.2 % (0-2.0); EOS % 1.1 % (0-4.5); HEMATOCRIT 35.5 % (35.4-49); HEMOGLOBIN 11.7 GM/dL (11.7-16.9); LYMPH % 8.4 % (8-40); MCH 29.4 pg (25.7-33.7); MCHC 32.9 g/dl (32.0-35.9); MEAN CELL VOLUME 89.2 fl (80-96); MEAN PLT VOLUME 7.9 fl (7.5-11.1); MONO % 5.5 % (3.8-10.2); NEUT % 83.8 % (42.8-82.8); PLATELET COUNT 358 K/MM3 (134-434); RBC 3.97 M/mm3 (4.00-5.60); WHITE BLOOD COUNT 16.8 K/mm3 (4.0-10.0)
[2017-10-04] MEDS ORDERED: CEFOXITIN SODIUM 2 GM in DEXTROSE 5%-WATER - 100 ML IVPB ONE ×2 (16:00→18:00)
[2017-10-04 16:02] LABS: INR 1.12 (0.82-1.09); PROTHROMBIN TIME (PATIENT) 12.6 SEC (9.98-11.88)
[2017-10-04 16:10] LABS: ALBUMIN 2.4 g/dl (3.4-5.0); ANION GAP 8 (8-16); BILIRUBIN,TOTAL 0.3 mg/dL (0.2-1.0); BLOOD UREA NITROGEN 12 mg/dL (7-18); CALCIUM 8.4 mg/dL (8.5-10.1); CHLORIDE 110 mmol/L (98-107); CO2 26 mmol/L (21-32); CREATININE 1.6 mg/dL (0.7-1.3); GLUCOSE,RANDOM 107 mg/dL (74-106); MAGNESIUM 1.7 mg/dL (1.8-2.4); POTASSIUM 3.9 mmol/L (3.5-5.1); SGOT/AST 12 U/L (15-37); SGPT/ALT 13 U/L (12-78); SODIUM 144 mmol/L (136-145); TOT PROT 5.3 g/dl (6.4-8.2)
[2017-10-04 16:13] LABS: ALK PHOS 95 U/L (45-117)
--- NOTE | 2017-10-04 16:26 | PN ---
Progress Note (short form) - Note Progress Note: Colon polyps pathology reviewed. Repeat colonoscopy in 6 months. Problem List - Problems (1) Weight loss Code(s): R63.4 - ABNORMAL WEIGHT LOSS (2) Colon polyp Code(s): K63.5 - POLYP OF COLON
[2017-10-04] MEDS ORDERED: LACTATED RINGERS SOLUTION 1,000 ML/1,000 ML INFUS.BAG IV STA (19:20)
[2017-10-04] MEDS: morphine SULFATE 4 MG/ML VIAL IVPUSH PRN (20:20)
[2017-10-04] MEDS: HEPARIN NA (PORCINE) 5,000 UNITS/ML 1ML VIAL SQ SCH (21:10)
[2017-10-04] MEDS ORDERED: DONEPEZIL HCL 10 MG TABLET (FP) PO SCH (22:00)
[2017-10-04] MEDS ORDERED: QUEtiapine FUMARATE 25 MG TABLET (FP) PO SCH (22:00)
[2017-10-04] MEDS ORDERED: HEPARIN NA (PORCINE) 5,000 UNITS/ML 1ML VIAL SQ SCH (22:00)
[2017-10-05] MEDS: morphine SULFATE 4 MG/ML VIAL IVPUSH PRN ×3 (01:12→17:11)
[2017-10-05] MEDS: HEPARIN NA (PORCINE) 5,000 UNITS/ML 1ML VIAL SQ SCH ×3 (05:13→22:04)
[2017-10-05] MEDS ORDERED: PT OWN MED DRAWER 7, Y5N ONE ×2 (10:00→20:55)
[2017-10-05] MEDS: PANTOPRAZOLE SODIUM 40 MG VIAL IVPUSH SCH (10:14)
--- NOTE | 2017-10-05 10:43 | PN ---
Progress Note (short form) - Note Progress Note: Anesthesia post p note POD#1. S/P partial transverse colectomy under GA. VSS. No apparent post anesthesia complications. Signed off.
[2017-10-05] MEDS: ARTIFICIAL TEARS (POLYVINYL ALCOHOL 1.4%) OPTH DROPS OD SCH ×2 (11:03→22:07)
[2017-10-05 11:16] LABS: BASO % 0.8 % (0-2.0); HEMATOCRIT 32.6 % (35.4-49); HEMOGLOBIN 10.7 GM/dL (11.7-16.9); LYMPH % 8.5 % (8-40); MCH 29.5 pg (25.7-33.7); MCHC 32.9 g/dl (32.0-35.9); MEAN CELL VOLUME 89.6 fl (80-96); MEAN PLT VOLUME 7.2 fl (7.5-11.1); MONO % 8.2 % (3.8-10.2); NEUT % 81.5 % (42.8-82.8); PLATELET COUNT 265 K/MM3 (134-434); RBC 3.64 M/mm3 (4.00-5.60); RDW 12.7 % (11.9-15.9); WHITE BLOOD COUNT 10.9 K/mm3 (4.0-10.0)
--- NOTE | 2017-10-05 11:57 | PN ---
Progress Note, Physician History of Present Illness: POD#1 partial transverse colectomy for incomplete endoscopically resected colon polyp/tubular adenoma, comfortable post-op, no flatus yet. - Current Medication List Current Medications: Active Medications Albuterol Sulfate (Ventolin 0.083% Nebulizer Soln -) 1 amp NEB Q4H PRN PRN Reason: SHORT OF BREATH/WHEEZING Artificial Tears (Artificial Tears) 1 drop OD BID [facility] Last Admin: 10/05/17 11:03 Dose: Not Given Bicalutamide (Casodex -) 50 mg PO DAILY [facility] Donepezil HCl (Aricept -) 10 mg PO HS [facility] Heparin Sodium (Porcine) (Heparin -) 5,000 unit SQ TID [facility] Last Admin: 10/05/17 05:13 Dose: 5,000 unit Sodium Chloride (Normal Saline -) 1,000 mls @ 83 mls/hr IV ASDIR [facility] Last Admin: 10/04/17 18:09 Dose: 83 mls/hr Midodrine (Proamatine -) 10 mg PO TID-MID [facility] Morphine Sulfate (Morphine Sulfate) 4 mg IVPUSH Q3H PRN PRN Reason: PAIN Last Admin: 10/05/17 06:28 Dose: 4 mg Ondansetron HCl (Zofran Injection) 4 mg IVPUSH Q6H PRN PRN Reason: NAUSEA AND/OR VOMITING Pantoprazole Sodium (Protonix Iv) 40 mg IVPUSH DAILY [facility] Last Admin: 10/05/17 10:14 Dose: 40 mg Quetiapine Fumarate (Seroquel -) 25 mg PO HS [facility] Thiamine HCl (Vitamin B1 -) 100 mg PO [facility] - Objective Vital Signs: Vital Signs Temperature 98.1 F 10/05/17 05:54 Pulse Rate 108 H 10/05/17 02:00 Respiratory Rate 20 10/05/17 05:54 Blood Pressure 142/75 10/05/17 05:54 O2 Sat by Pulse Oximetry (%) 100 10/04/17 21:00 Constitutional: Yes: No Distress, Calm Neck: Yes: Supple Cardiovascular: Yes: Pulse Irregular Respiratory: Yes: Regular, Diminished Gastrointestinal: Yes: Soft, Hypoactive Bowel Sounds, Other (Post-op) Edema: No Labs: CBC, BMP 10/05/17 11:05 INR, PTT INR 1.12 (0.82-1.09) 10/04/17 15:15 - ....Imaging EKG: Report Reviewed (Tele: Afib rate-controlled) Problem List - Problems (1) Fall Code(s): W19.XXXA - UNSPECIFIED FALL, INITIAL ENCOUNTER Qualifiers: Encounter type: subsequent encounter Qualified Code(s): W19.XXXD - Unspecified fall, subsequent encounter (2) Weight loss Code(s): R63.4 - ABNORMAL WEIGHT LOSS (3) Adenocarcinoma of prostate Code(s): C61 - MALIGNANT NEOPLASM OF PROSTATE (4) Atrial fibrillation Code(s): I48.91 - UNSPECIFIED ATRIAL FIBRILLATION Qualifiers: Atrial fibrillation type: persistent Qualified Code(s): I48.1 - Persistent atrial fibrillation (5) Chronic kidney disease (CKD) Code(s): N18.9 - CHRONIC KIDNEY DISEASE, UNSPECIFIED Qualifiers: Chronic kidney disease stage: stage 3 (moderate) Qualified Code(s): N18.3 - Chronic kidney disease, stage 3 (moderate) (6) Diastolic CHF Code(s): I50.30 - UNSPECIFIED DIASTOLIC (CONGESTIVE) HEART FAILURE Qualifiers: Congestive heart failure chronicity: chronic Qualified Code(s): I50.32 - Chronic diastolic (congestive) heart failure (7) HTN (hypertension) Code(s): I10 - ESSENTIAL (PRIMARY) HYPERTENSION Qualifiers: Hypertension type: essential hypertension Qualified Code(s): I10 - Essential (primary) hypertension (8) Hypercholesterolemia Code(s): E78.00 - PURE HYPERCHOLESTEROLEMIA, UNSPECIFIED (9) Hypothyroidism Code(s): E03.9 - HYPOTHYROIDISM, UNSPECIFIED Qualifiers: Hypothyroidism type: unspecified Qualified Code(s): E03.9 - Hypothyroidism , unspecified (10) Orthostatic hypotension Code(s): I95.1 - ORTHOSTATIC HYPOTENSION (11) Status post orchiectomy Code(s): Z90.79 - ACQUIRED ABSENCE OF OTHER GENITAL ORGAN(S) (12) Status post partial colectomy Code(s): Z90.49 - ACQUIRED ABSENCE OF OTHER SPECIFIED PARTS OF DIGESTIVE TRACT (13) Colon polyps Code(s): K63.5 - POLYP OF COLON Qualifiers: Colon polyp type: unspecified Colon location: descending Qualified Code(s ): D12.4 - Benign neoplasm of descending colon Assessment/Plan 1. Inadvertent weight loss - remaining polyps s/p partial transverse colectomy 2. Atrial fibrillation with variable ventricular response 3. Hypertension 4. Hypercholesterolemia 5. 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 Hypothyroidism 7. 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 Chronic kidney disease 9. History of diverticulitis 10. Positional dizziness post mechanical fall and orthostatic hypotension PLAN: 1. Resume Eliquis 5 bid once post-op hemostasis has been achieved, sq heparin in meantime 2. Await bowel function recovery, early ambulation, analgesia as needed 3. Midodrine 10 tid
[2017-10-05 12:13] LABS: ANION GAP 6 (8-16); BLOOD UREA NITROGEN 14 mg/dL (7-18); CALCIUM 8.2 mg/dL (8.5-10.1); CHLORIDE 112 mmol/L (98-107); CO2 27 mmol/L (21-32); CREATININE 1.4 mg/dL (0.7-1.3); GLUCOSE,RANDOM 90 mg/dL (74-106); MAGNESIUM 1.8 mg/dL (1.8-2.4); POTASSIUM 4.2 mmol/L (3.5-5.1); SODIUM 145 mmol/L (136-145)
--- NOTE | 2017-10-05 12:40 | PN ---
Progress Note, Physician Chief Complaint: THIS IS MY FIRST ENCOUNTER WITH THIS PATIENT RECORDS AND NOTES REVIEWED ASLEEP COMFORTABLE NGT IN PLACE - Current Medication List Current Medications: Active Medications Albuterol Sulfate (Ventolin 0.083% Nebulizer Soln -) 1 amp NEB Q4H PRN PRN Reason: SHORT OF BREATH/WHEEZING Artificial Tears (Artificial Tears) 1 drop OD BID [facility] Last Admin: 10/05/17 11:03 Dose: Not Given Bicalutamide (Casodex -) 50 mg PO DAILY [facility] Donepezil HCl (Aricept -) 10 mg PO HS [facility] Heparin Sodium (Porcine) (Heparin -) 5,000 unit SQ TID [facility] Last Admin: 10/05/17 05:13 Dose: 5,000 unit Sodium Chloride (Normal Saline -) 1,000 mls @ 83 mls/hr IV ASDIR [facility] Last Admin: 10/04/17 18:09 Dose: 83 mls/hr Midodrine (Proamatine -) 10 mg PO TID-MID [facility] Morphine Sulfate (Morphine Sulfate) 4 mg IVPUSH Q3H PRN PRN Reason: PAIN Last Admin: 10/05/17 06:28 Dose: 4 mg Ondansetron HCl (Zofran Injection) 4 mg IVPUSH Q6H PRN PRN Reason: NAUSEA AND/OR VOMITING Pantoprazole Sodium (Protonix Iv) 40 mg IVPUSH DAILY [facility] Last Admin: 10/05/17 10:14 Dose: 40 mg Quetiapine Fumarate (Seroquel -) 25 mg PO HS [facility] Thiamine HCl (Vitamin B1 -) 100 mg PO [facility] - Objective Vital Signs: Vital Signs Temperature 98.1 F 10/05/17 05:54 Pulse Rate 108 H 10/05/17 02:00 Respiratory Rate 20 10/05/17 05:54 Blood Pressure 142/75 10/05/17 05:54 O2 Sat by Pulse Oximetry (%) 100 10/04/17 21:00 Constitutional: Yes: No Distress Eyes: Yes: WNL HENT: Yes: WNL Neck: Yes: WNL Cardiovascular: Yes: WNL Respiratory: Yes: WNL Gastrointestinal: Yes: Other (NGT/) Genitourinary: Yes: WNL Musculoskeletal: Yes: Muscle Weakness Extremities: Yes: WNL Edema: No Peripheral Pulses WNL: Yes Integumentary: Yes: WNL Wound/Incision: Yes: Dressing Dry and Intact, Other Neurological: Yes: WNL ...Motor Strength: WNL Psychiatric: Yes: WNL Labs: CBC, BMP 10/05/17 11:05 10/05/17 11:05 INR, PTT INR 1.12 (0.82-1.09) 10/04/17 15:15 Problem List - Problems (1) COPD (chronic obstructive pulmonary disease) Code(s): J44.9 - CHRONIC OBSTRUCTIVE PULMONARY DISEASE, UNSPECIFIED (2) Colon polyps Code(s): K63.5 - POLYP OF COLON Qualifiers: Colon polyp type: unspecified Colon location: descending Qualified Code(s ): D12.4 - Benign neoplasm of descending colon (3) History of open sigmoidectomy Code(s): Z98.890 - OTHER SPECIFIED POSTPROCEDURAL STATES; Z90.49 - ACQUIRED ABSENCE OF OTHER SPECIFIED PARTS OF DIGESTIVE TRACT (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
--- NOTE | 2017-10-05 14:04 | PN ---
Progress Note, Physician History of Present Illness: s/p partial transverse colectomy sleeping comfortably seen and examined in bed wakes easily has some soreness in abdomen, but no significant pain - "like a toothache" no flatus yet, no BM can use IS, getting ~[address] or [address] in [address] with ~100 clear output in canister - pt has been taking ice chips and few sips of water [place] with light yellow urine - improved from postop, 250 in meter now since am - Current Medication List Current Medications: Active Medications Albuterol Sulfate (Ventolin 0.083% Nebulizer Soln -) 1 amp NEB Q4H PRN PRN Reason: SHORT OF BREATH/WHEEZING Artificial Tears (Artificial Tears) 1 drop OD BID [facility] Last Admin: 10/05/17 11:03 Dose: Not Given Bicalutamide (Casodex -) 50 mg PO DAILY [facility] Donepezil HCl (Aricept -) 10 mg PO HS [facility] Heparin Sodium (Porcine) (Heparin -) 5,000 unit SQ TID [facility] Last Admin: 10/05/17 05:13 Dose: 5,000 unit Sodium Chloride (Normal Saline -) 1,000 mls @ 83 mls/hr IV ASDIR [facility] Last Admin: 10/04/17 18:09 Dose: 83 mls/hr Midodrine (Proamatine -) 10 mg PO TID-MID [facility] Morphine Sulfate (Morphine Sulfate) 4 mg IVPUSH Q3H PRN PRN Reason: PAIN Last Admin: 10/05/17 06:28 Dose: 4 mg Ondansetron HCl (Zofran Injection) 4 mg IVPUSH Q6H PRN PRN Reason: NAUSEA AND/OR VOMITING Pantoprazole Sodium (Protonix Iv) 40 mg IVPUSH DAILY [facility] Last Admin: 10/05/17 10:14 Dose: 40 mg Quetiapine Fumarate (Seroquel -) 25 mg PO HS [facility] Thiamine HCl (Vitamin B1 -) 100 mg PO HS [facility] PO MEDS ON HOLD until NGT out - Objective Vital Signs: Vital Signs Temperature 97.5 F L 10/05/17 13:22 Pulse Rate 105 H 10/05/17 13:22 Respiratory Rate 22 10/05/17 13:22 Blood Pressure 155/81 10/05/17 13:22 O2 Sat by Pulse Oximetry (%) 97 10/05/17 09:00 Vital Signs Period Temp Pulse Resp BP Sys/Ching Pulse Ox Last 24 Hr 97.4 F-98.1 F 95-126 16-22 112-155/65-103 97-100 Intake & Output 10/04/17 10/05/17 10/05/17 23:59 07:59 15:59 Intake Total 1250 913 Output Total 250 650 250 Balance 1000 263 -250 Intake: IV 1250 913 LACTATED RINGERS SOLUTION 1000 1,000 ml In 1,000 ml @ 1000 mls/hr IV ONCE STA Rx#:[id number] Normal Saline - 1,000 ml 913 @ 83 mls/hr IV ASDIR [facility] Rx#:[id number] Output: Urine 250 650 250 [place] 650 250 Other: Voiding Method Urinal Indwelling Catheter Constitutional: Yes: Well Nourished, No Distress, Calm Eyes: Yes: Conjunctiva Clear, EOM Intact HENT: Yes: Atraumatic, Normocephalic, Other (NGT in place) Cardiovascular: Yes: Tachycardia (mild 100s-110s), Pulse Irregular Respiratory: Yes: Regular, Other (good effort on IS) Gastrointestinal: Yes: Normal Bowel Sounds, Soft, Distention (minimal), Tenderness (most in LLQ, less LUQ and RLQ, also incisional). No: Tenderness, Rebound Genitourinary: Yes: [place] Present. No: Hematuria Extremities: No: Cool, Cyanosis Integumentary: Yes: Incision (midline). No: Jaundice, Rash Wound/Incision: Yes: Dressing Dry and Intact (small faint blood strikethrough visible in upper aspect, dried; midline). No: Dressing Removed Neurological: Yes: Alert, Oriented Labs: CBC, BMP 10/05/17 11:05 10/05/17 11:05 Mg 1.8 BUN slt up, Cr slt down Problem List - Problems (1) Colon polyps Assessment/Plan: POD1 s/p partial transverse colectomy for incompletely endoscopically resected polyp path on removed portion of polyp was tubular adenoma polyp visualized in specimen removed, pathology pending overall doing well continue NPO/IVF/NGT until resumption of bowel function (at least flatus) recommend no ice chips or water - swabs ok, may rinse and spit no po meds until NGT out, then may resume most continue to HOLD ELIQUIS GI/DVT prophylaxis pain meds prn, IV for now continue IS and pulmonary toilet will remove midline dressing tomorrow, elena are underneath continue [place] today for accurate I/O's labs in am completed periop antibiotics, ID following should sit up at edge of bed or OOB to chair by later today BP in 150s systolic without cardizem or midodrine rate 100s-110s cardiology following postop enzymes neg, on telemetry, EKG was done in PACU Code(s): K63.5 - POLYP OF COLON Qualifiers: Colon polyp type: unspecified Colon location: descending Qualified Code(s ): D12.4 - Benign neoplasm of descending colon (2) 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 Code(s): D49.0 - NEOPLASM OF UNSPECIFIED BEHAVIOR OF DIGESTIVE SYSTEM (3) Orthostatic hypotension Code(s): I95.1 - ORTHOSTATIC HYPOTENSION (4) Recurrent falls Code(s): R29.6 - REPEATED FALLS (5) Weight loss Code(s): R63.4 - ABNORMAL WEIGHT LOSS (6) History of open sigmoidectomy Code(s): Z98.890 - OTHER SPECIFIED POSTPROCEDURAL STATES; Z90.49 - ACQUIRED ABSENCE OF OTHER SPECIFIED PARTS OF DIGESTIVE TRACT (7) Atrial fibrillation Code(s): I48.91 - UNSPECIFIED ATRIAL FIBRILLATION Qualifiers: Atrial fibrillation type: persistent Qualified Code(s): I48.1 - Persistent atrial fibrillation (8) Chronic kidney disease (CKD) Code(s): N18.9 - CHRONIC KIDNEY DISEASE, UNSPECIFIED Qualifiers: Chronic kidney disease stage: stage 3 (moderate) Qualified Code(s): N18.3 - Chronic kidney disease, stage 3 (moderate) (9) HTN (hypertension) Code(s): I10 - ESSENTIAL (PRIMARY) HYPERTENSION Qualifiers: Hypertension type: essential hypertension Qualified Code(s): I10 - Essential (primary) hypertension (10) Hyperlipidemia associated with type 2 diabetes mellitus Code(s): E11.69 - TYPE 2 DIABETES MELLITUS WITH OTHER SPECIFIED COMPLICATION; E78.5 - HYPERLIPIDEMIA, UNSPECIFIED (11) UTI (urinary tract infection) Code(s): N39.0 - URINARY TRACT INFECTION, SITE NOT SPECIFIED Qualifiers: Urinary tract infection type: site unspecified (12) 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
--- NOTE | 2017-10-05 16:06 | PN ---
Progress Note (short form) - Note Progress Note: covering dr alin miles/atn ckd s/p fall s/p colonoscopy +large unresctable polyp now s/p hemicolectomy saturday on ivf chart reviewed pt examined Current Medications Albuterol Sulfate (Ventolin 0.083% Nebulizer Soln -) 1 amp NEB Q4H PRN PRN Reason: SHORT OF BREATH/WHEEZING Artificial Tears (Artificial Tears) 1 drop OD BID [facility] Last Admin: 10/05/17 11:03 Dose: Not Given Bicalutamide (Casodex -) 50 mg PO DAILY [facility] Donepezil HCl (Aricept -) 10 mg PO HS [facility] Heparin Sodium (Porcine) (Heparin -) 5,000 unit SQ TID [facility] Last Admin: 10/05/17 13:47 Dose: 5,000 unit Sodium Chloride (Normal Saline -) 1,000 mls @ 83 mls/hr IV ASDIR [facility] Last Admin: 10/04/17 18:09 Dose: 83 mls/hr Midodrine (Proamatine -) 10 mg PO TID-MID [facility] Morphine Sulfate (Morphine Sulfate) 4 mg IVPUSH Q3H PRN PRN Reason: PAIN Last Admin: 10/05/17 06:28 Dose: 4 mg Ondansetron HCl (Zofran Injection) 4 mg IVPUSH Q6H PRN PRN Reason: NAUSEA AND/OR VOMITING Pantoprazole Sodium (Protonix Iv) 40 mg IVPUSH DAILY [facility] Last Admin: 10/05/17 10:14 Dose: 40 mg Quetiapine Fumarate (Seroquel -) 25 mg PO HS [facility] Thiamine HCl (Vitamin B1 -) 100 mg PO HS [facility] Last Vital Signs Temp Pulse Resp BP Pulse Ox 97.5 F L 105 H 22 155/81 97 10/05/17 13:22 10/05/17 13:22 10/05/17 13:22 10/05/17 13:22 10/05/17 09:00 Lungs clear Heart reg Abd soft nontender ext no edema CBC, BMP 10/05/17 11:05 10/05/17 11:05 IMP- ckd postop monitor i and o's ivf until oral intake is adequate
--- NOTE | 2017-10-05 16:28 | EKG ---
Test Reason : Blood Pressure : / mmHG Vent. Rate : 123 BPM Atrial Rate : 125 BPM P-R Int : 000 ms QRS Dur : 092 ms QT Int : 340 ms P-R-T Axes : 000 -26 020 degrees QTc Int : 486 ms ATRIAL FIBRILLATION WITH RAPID VENTRICULAR RESPONSE LOW VOLTAGE QRS NONSPECIFIC ST AND T WAVE ABNORMALITY ABNORMAL ECG WHEN COMPARED WITH ECG OF 29-SEP-2017 10:29, VENT. RATE HAS INCREASED BY [address] NOW DEPRESSED IN ANTERIOR LEADS NONSPECIFIC T WAVE ABNORMALITY NOW EVIDENT IN ANTERIOR LEADS Confirmed by JONEL OTERO MD ([id number]) on 10/05/2017 4:27:31 PM Referred By: Confirmed By:JONEL OTERO MD
[2017-10-06] MEDS: HEPARIN NA (PORCINE) 5,000 UNITS/ML 1ML VIAL SQ SCH ×3 (05:50→22:05)
[2017-10-06 08:06] LABS: HEMATOCRIT 29.8 % (35.4-49); HEMOGLOBIN 9.7 GM/dL (11.7-16.9); MCH 29.1 pg (25.7-33.7); MCHC 32.7 g/dl (32.0-35.9); MEAN CELL VOLUME 89.1 fl (80-96); MEAN PLT VOLUME 7.9 fl (7.5-11.1); PLATELET COUNT 257 K/MM3 (134-434); RBC 3.34 M/mm3 (4.00-5.60); RDW 12.6 % (11.9-15.9); WHITE BLOOD COUNT 12.7 K/mm3 (4.0-10.0)
[2017-10-06 08:30] LABS: ANION GAP 9 (8-16); BLOOD UREA NITROGEN 15 mg/dL (7-18); CALCIUM 8.4 mg/dL (8.5-10.1); CHLORIDE 112 mmol/L (98-107); CO2 24 mmol/L (21-32); CREATININE 1.3 mg/dL (0.7-1.3); GLUCOSE,RANDOM 85 mg/dL (74-106); SODIUM 145 mmol/L (136-145)
[2017-10-06] MEDS ORDERED: PT OWN MED DRAWER 7, Y5N ONE (11:07)
[2017-10-06] MEDS: PANTOPRAZOLE SODIUM 40 MG VIAL IVPUSH SCH (11:14)
[2017-10-06] MEDS: ARTIFICIAL TEARS (POLYVINYL ALCOHOL 1.4%) OPTH DROPS OD SCH ×2 (11:15→22:06)
[2017-10-06] MEDS: SODIUM CHLORIDE 1,000 ML IV SCH ×2 (11:19→11:20)
--- NOTE | 2017-10-06 11:46 | PN ---
Progress Note, Physician History of Present Illness: POD#2 partial transverse colectomy for incomplete endoscopically resected colon polyp/tubular adenoma, comfortable post-op, no flatus yet. Episodes of rapid afib resumed on Cardizem IV. - Current Medication List Current Medications: Active Medications Albuterol Sulfate (Ventolin 0.083% Nebulizer Soln -) 1 amp NEB Q4H PRN PRN Reason: SHORT OF BREATH/WHEEZING Artificial Tears (Artificial Tears) 1 drop OD BID [facility] Last Admin: 10/06/17 11:15 Dose: 1 drop Bicalutamide (Casodex -) 50 mg PO DAILY [facility] Donepezil HCl (Aricept -) 10 mg PO HS [facility] Heparin Sodium (Porcine) (Heparin -) 5,000 unit SQ TID [facility] Last Admin: 10/06/17 05:50 Dose: 5,000 unit Sodium Chloride (Normal Saline -) 1,000 mls @ 83 mls/hr IV ASDIR [facility] Last Admin: 10/06/17 11:20 Dose: 83 mls/hr Midodrine (Proamatine -) 10 mg PO TID-MID [facility] Morphine Sulfate (Morphine Sulfate) 4 mg IVPUSH Q3H PRN PRN Reason: PAIN Last Admin: 10/05/17 17:11 Dose: 4 mg Ondansetron HCl (Zofran Injection) 4 mg IVPUSH Q6H PRN PRN Reason: NAUSEA AND/OR VOMITING Pantoprazole Sodium (Protonix Iv) 40 mg IVPUSH DAILY [facility] Last Admin: 10/06/17 11:14 Dose: 40 mg Quetiapine Fumarate (Seroquel -) 25 mg PO [facility] Thiamine HCl (Vitamin B1 -) 100 mg PO [facility] - Objective Vital Signs: Vital Signs Temperature 98.5 F 10/06/17 05:00 Pulse Rate 111 H 10/06/17 05:00 Respiratory Rate 18 10/06/17 05:00 Blood Pressure 156/86 10/06/17 05:00 O2 Sat by Pulse Oximetry (%) 96 10/05/17 21:00 Constitutional: Yes: No Distress, Calm Neck: Yes: Supple Cardiovascular: Yes: Tachycardia, Pulse Irregular Respiratory: Yes: Regular, CTA Bilaterally Gastrointestinal: Yes: Soft, Hypoactive Bowel Sounds Edema: No Labs: CBC, BMP 10/06/17 06:15 12/24/17 06:15 INR, PTT INR 1.12 (0.82-1.09) 10/04/17 15:15 - ....Imaging EKG: Report Reviewed (Tele: Rapid afib) Problem List - Problems (1) Fall Code(s): W19.XXXA - UNSPECIFIED FALL, INITIAL ENCOUNTER Qualifiers: Encounter type: subsequent encounter Qualified Code(s): W19.XXXD - Unspecified fall, subsequent encounter (2) Weight loss Code(s): R63.4 - ABNORMAL WEIGHT LOSS (3) Adenocarcinoma of prostate Code(s): C61 - MALIGNANT NEOPLASM OF PROSTATE (4) Atrial fibrillation Code(s): I48.91 - UNSPECIFIED ATRIAL FIBRILLATION Qualifiers: Atrial fibrillation type: persistent Qualified Code(s): I48.1 - Persistent atrial fibrillation (5) Chronic kidney disease (CKD) Code(s): N18.9 - CHRONIC KIDNEY DISEASE, UNSPECIFIED Qualifiers: Chronic kidney disease stage: stage 3 (moderate) Qualified Code(s): N18.3 - Chronic kidney disease, stage 3 (moderate) (6) Diastolic CHF Code(s): I50.30 - UNSPECIFIED DIASTOLIC (CONGESTIVE) HEART FAILURE Qualifiers: Congestive heart failure chronicity: chronic Qualified Code(s): I50.32 - Chronic diastolic (congestive) heart failure (7) HTN (hypertension) Code(s): I10 - ESSENTIAL (PRIMARY) HYPERTENSION Qualifiers: Hypertension type: essential hypertension Qualified Code(s): I10 - Essential (primary) hypertension (8) Hypercholesterolemia Code(s): E78.00 - PURE HYPERCHOLESTEROLEMIA, UNSPECIFIED (9) Hypothyroidism Code(s): E03.9 - HYPOTHYROIDISM, UNSPECIFIED Qualifiers: Hypothyroidism type: unspecified Qualified Code(s): E03.9 - Hypothyroidism , unspecified (10) Orthostatic hypotension Code(s): I95.1 - ORTHOSTATIC HYPOTENSION (11) Status post orchiectomy Code(s): Z90.79 - ACQUIRED ABSENCE OF OTHER GENITAL ORGAN(S) (12) Status post partial colectomy Code(s): Z90.49 - ACQUIRED ABSENCE OF OTHER SPECIFIED PARTS OF DIGESTIVE TRACT (13) Colon polyps Code(s): K63.5 - POLYP OF COLON Qualifiers: Colon polyp type: unspecified Colon location: descending Qualified Code(s ): D12.4 - Benign neoplasm of descending colon Assessment/Plan 1. Inadvertent weight loss - remaining polyps s/p partial transverse colectomy POD #2 2. Atrial fibrillation with variable ventricular response 3. Hypertension 4. Hypercholesterolemia 5. 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 Hypothyroidism 7. 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 Chronic kidney disease 9. History of diverticulitis 10. Positional dizziness post mechanical fall and orthostatic hypotension PLAN: 1. Eliquis 5 bid held awaiting post-op hemostasis per surgery, sq heparin in meantime 2. Await bowel function recovery, early ambulation, analgesia as needed 3. IV Cardizem as needed for rate-control
[2017-10-06] MEDS: dilTIAZem HCL 50 MG/10 ML - 10 ML VIAL IVPUSH PRN ×2 (12:52→22:07)
--- NOTE | 2017-10-06 15:26 | PN ---
Progress Note, Physician Chief Complaint: AWAKE ALERT NGT IN PLACE AND SUCTIONING DENIES CP OR SOB - Current Medication List Current Medications: Active Medications Albuterol Sulfate (Ventolin 0.083% Nebulizer Soln -) 1 amp NEB Q4H PRN PRN Reason: SHORT OF BREATH/WHEEZING Artificial Tears (Artificial Tears) 1 drop OD BID [facility] Last Admin: 10/06/17 11:15 Dose: 1 drop Bicalutamide (Casodex -) 50 mg PO DAILY [facility] Diltiazem HCl (Cardizem Injection -) 10 mg IVPUSH Q4H PRN PRN Reason: TACHYCARDIA Last Admin: 10/06/17 12:52 Dose: 10 mg Donepezil HCl (Aricept -) 10 mg PO HS [facility] Heparin Sodium (Porcine) (Heparin -) 5,000 unit SQ TID [facility] Last Admin: 10/06/17 14:35 Dose: 5,000 unit Sodium Chloride (Normal Saline -) 1,000 mls @ 83 mls/hr IV ASDIR [facility] Last Admin: 10/06/17 11:20 Dose: 83 mls/hr Midodrine (Proamatine -) 10 mg PO TID-MID [facility] Morphine Sulfate (Morphine Sulfate) 4 mg IVPUSH Q3H PRN PRN Reason: PAIN Last Admin: 10/05/17 17:11 Dose: 4 mg Ondansetron HCl (Zofran Injection) 4 mg IVPUSH Q6H PRN PRN Reason: NAUSEA AND/OR VOMITING Pantoprazole Sodium (Protonix Iv) 40 mg IVPUSH DAILY [facility] Last Admin: 10/06/17 11:14 Dose: 40 mg Quetiapine Fumarate (Seroquel -) 25 mg PO HS [facility] Thiamine HCl (Vitamin B1 -) 100 mg PO HS [facility] - Objective Vital Signs: Vital Signs Temperature 97.5 F L 10/06/17 09:00 Pulse Rate 111 H 10/06/17 09:00 Respiratory Rate 18 10/06/17 09:00 Blood Pressure 160/78 10/06/17 09:00 O2 Sat by Pulse Oximetry (%) 96 10/06/17 09:00 Constitutional: Yes: Mild Distress Eyes: Yes: WNL HENT: Yes: WNL Neck: Yes: WNL Cardiovascular: Yes: WNL Respiratory: Yes: WNL Gastrointestinal: Yes: Distention, Tenderness Genitourinary: Yes: WNL Musculoskeletal: Yes: WNL Extremities: Yes: WNL Edema: No Peripheral Pulses WNL: Yes Integumentary: Yes: WNL Wound/Incision: Yes: Dressing Dry and Intact Neurological: Yes: WNL ...Motor Strength: WNL Psychiatric: Yes: WNL Labs: CBC, BMP 10/06/17 06:15 10/06/17 06:15 INR, PTT INR 1.12 (0.82-1.09) 10/04/17 15:15 Problem List - Problems (1) COPD (chronic obstructive pulmonary disease) Code(s): J44.9 - CHRONIC OBSTRUCTIVE PULMONARY DISEASE, UNSPECIFIED (2) Colon polyps Code(s): K63.5 - POLYP OF COLON Qualifiers: Colon polyp type: unspecified Colon location: descending Qualified Code(s ): D12.4 - Benign neoplasm of descending colon (3) History of open sigmoidectomy Code(s): Z98.890 - OTHER SPECIFIED POSTPROCEDURAL STATES; Z90.49 - ACQUIRED ABSENCE OF OTHER SPECIFIED PARTS OF DIGESTIVE TRACT (4) 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 Code(s): D49.0 - NEOPLASM OF UNSPECIFIED BEHAVIOR OF DIGESTIVE SYSTEM (5) 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
--- NOTE | 2017-10-06 16:29 | PN ---
Progress Note (short form) - Note Progress Note: covering dr ogden ginger/atn ckd s/p fall s/p colonoscopy +large unresctable polyp now s/p hemicolectomy saturday on ivf chart reviewed pt examined Current Medications Albuterol Sulfate (Ventolin 0.083% Nebulizer Soln -) 1 amp NEB Q4H PRN PRN Reason: SHORT OF BREATH/WHEEZING Artificial Tears (Artificial Tears) 1 drop OD BID [facility] Last Admin: 10/06/17 11:15 Dose: 1 drop Bicalutamide (Casodex -) 50 mg PO DAILY [facility] Diltiazem HCl (Cardizem Injection -) 10 mg IVPUSH Q4H PRN PRN Reason: TACHYCARDIA Last Admin: 10/06/17 12:52 Dose: 10 mg Donepezil HCl (Aricept -) 10 mg PO HS [facility] Heparin Sodium (Porcine) (Heparin -) 5,000 unit SQ TID [facility] Last Admin: 10/06/17 14:35 Dose: 5,000 unit Sodium Chloride (Normal Saline -) 1,000 mls @ 83 mls/hr IV [facility] Last Admin: 10/06/17 11:20 Dose: 83 mls/hr Midodrine (Proamatine -) 10 mg PO TID-M[facility] Morphine Sulfate (Morphine Sulfate) 4 mg IVPUSH Q3H PRN PRN Reason: PAIN Last Admin: 10/05/17 17:11 Dose: 4 mg Ondansetron HCl (Zofran Injection) 4 mg IVPUSH Q6H PRN PRN Reason: NAUSEA AND/OR VOMITING Pantoprazole Sodium (Protonix Iv) 40 mg IVPUSH DAILY [facility] Last Admin: 10/06/17 11:14 Dose: 40 mg Quetiapine Fumarate (Seroquel -) 25 mg PO HS [facility] Thiamine HCl (Vitamin B1 -) 100 mg PO HS [facility] Last Vital Signs Temp Pulse Resp BP Pulse Ox 97.5 F L 105 H 22 155/81 97 10/05/17 13:22 10/05/17 13:22 10/05/17 13:22 10/05/17 13:22 10/05/17 09:00 Lungs clear Heart reg Abd soft no guarding Ext no edema CBC, BMP 10/06/17 06:15 10/06/17 06:15 IMP- ckd postop monitor i and o's continue ivf and oral rehydration
--- NOTE | 2017-10-06 17:55 | PN ---
Progress Note, Physician History of Present Illness: s/p partial transverse colectomy resting comfortably seen and examined in bed c/o 5/10 abdominal pain no flatus yet, no BM hesitant to sneeze or cough - would like pain medication now NG in place with ~300 clear output in canister - pt has taken some ice chips earlier [place] with very light yellow urine - 500ml since am has needed some Cardizem IV for tachycardia with afib above 110s, with effect, now maintaining 100s-110s range mostly pt would like orange juice - Current Medication List Current Medications: Active Medications Albuterol Sulfate (Ventolin 0.083% Nebulizer Soln -) 1 amp NEB Q4H PRN PRN Reason: SHORT OF BREATH/WHEEZING Artificial Tears (Artificial Tears) 1 drop OD BID [facility] Last Admin: 10/06/17 11:15 Dose: 1 drop Bicalutamide (Casodex -) 50 mg PO DAILY [facility] Diltiazem HCl (Cardizem Injection -) 10 mg IVPUSH Q4H PRN PRN Reason: TACHYCARDIA Last Admin: 10/06/17 12:52 Dose: 10 mg Donepezil HCl (Aricept -) 10 mg PO HS [facility] Heparin Sodium (Porcine) (Heparin -) 5,000 unit SQ TID [facility] Last Admin: 10/06/17 14:35 Dose: 5,000 unit Sodium Chloride (Normal Saline -) 1,000 mls @ 83 mls/hr IV ASDIR [facility] Last Admin: 10/06/17 11:20 Dose: 83 mls/hr Midodrine (Proamatine -) 10 mg PO TID-MID [facility] Morphine Sulfate (Morphine Sulfate) 4 mg IVPUSH Q3H PRN PRN Reason: PAIN Last Admin: 10/05/17 17:11 Dose: 4 mg Ondansetron HCl (Zofran Injection) 4 mg IVPUSH Q6H PRN PRN Reason: NAUSEA AND/OR VOMITING Pantoprazole Sodium (Protonix Iv) 40 mg IVPUSH DAILY [facility] Last Admin: 10/06/17 11:14 Dose: 40 mg Quetiapine Fumarate (Seroquel -) 25 mg PO HS [facility] Thiamine HCl (Vitamin B1 -) 100 mg PO HS [facility] - Objective Vital Signs: Vital Signs Temperature 98.1 F 10/06/17 15:27 Pulse Rate 92 H 10/06/17 15:27 Respiratory Rate 18 10/06/17 15:27 Blood Pressure 112/65 10/06/17 15:27 O2 Sat by Pulse Oximetry (%) 96 10/06/17 09:00 Constitutional: Yes: Well Nourished, No Distress, Calm Eyes: Yes: Conjunctiva Clear, EOM Intact HENT: Yes: Atraumatic, Normocephalic, Other (NGT in place with clear output, sumped and is working) Cardiovascular: Yes: Tachycardia (mild), Pulse Irregular Gastrointestinal: Yes: Soft, Distention (mild), Tenderness (mild lower quadrants and incisional) Genitourinary: Yes: [place] Present. No: Hematuria Extremities: No: Cool, Cyanosis Integumentary: Yes: Incision (midline). No: Rash Wound/Incision: Yes: Well Approximated, [place] Intact (midline), Dressing Dry and Intact, Dressing Removed (left open to air). No: Reddened Neurological: Yes: Alert, Oriented Labs: CBC, BMP 10/06/17 06:15 10/06/17 06:15 Problem List - Problems (1) Colon polyps Assessment/Plan: POD2 s/p partial transverse colectomy for incompletely endoscopically resected polyp path on endoscopically removed portion of polyp was tubular adenoma polyp visualized in specimen removed, surgical pathology pending overall doing well continue NPO/IVF/NGT until resumption of bowel function (at least flatus) recommend no ice chips or water - swabs ok, may rinse and spit no po meds until NGT out, then may resume most continue to HOLD ELIQUIS GI/DVT prophylaxis pain meds prn, IV for now continue IS and pulmonary toilet OOB to chair tid and ok to ambulate with assistance - PT to see after holiday midline dressing removed - incision with elena c/d/i labs in am will change fluids to D5 1/2NS d/c [place], continue to monitor STRICT I/Os Code(s): K63.5 - POLYP OF COLON Qualifiers: Colon polyp type: unspecified Colon location: descending Qualified Code(s ): D12.4 - Benign neoplasm of descending colon (2) 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 Code(s): D49.0 - NEOPLASM OF UNSPECIFIED BEHAVIOR OF DIGESTIVE SYSTEM (3) Orthostatic hypotension Code(s): I95.1 - ORTHOSTATIC HYPOTENSION (4) Recurrent falls Code(s): R29.6 - REPEATED FALLS (5) Weight loss Code(s): R63.4 - ABNORMAL WEIGHT LOSS (6) History of open sigmoidectomy Code(s): Z98.890 - OTHER SPECIFIED POSTPROCEDURAL STATES; Z90.49 - ACQUIRED ABSENCE OF OTHER SPECIFIED PARTS OF DIGESTIVE TRACT (7) Atrial fibrillation Code(s): I48.91 - UNSPECIFIED ATRIAL FIBRILLATION Qualifiers: Atrial fibrillation type: persistent Qualified Code(s): I48.1 - Persistent atrial fibrillation (8) Chronic kidney disease (CKD) Code(s): N18.9 - CHRONIC KIDNEY DISEASE, UNSPECIFIED Qualifiers: Chronic kidney disease stage: stage 3 (moderate) Qualified Code(s): N18.3 - Chronic kidney disease, stage 3 (moderate) (9) HTN (hypertension) Code(s): I10 - ESSENTIAL (PRIMARY) HYPERTENSION Qualifiers: Hypertension type: essential hypertension Qualified Code(s): I10 - Essential (primary) hypertension (10) Hyperlipidemia associated with type 2 diabetes mellitus Code(s): E11.69 - TYPE 2 DIABETES MELLITUS WITH OTHER SPECIFIED COMPLICATION; E78.5 - HYPERLIPIDEMIA, UNSPECIFIED (11) UTI (urinary tract infection) Code(s): N39.0 - URINARY TRACT INFECTION, SITE NOT SPECIFIED Qualifiers: Urinary tract infection type: site unspecified (12) 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
[2017-10-06] MEDS: morphine SULFATE 4 MG/ML VIAL IVPUSH PRN (18:03)
[2017-10-06] MEDS: DEXTROSE 5%-0.45% SALINE 1,000 ML IV SCH (22:06)
[2017-10-07] MEDS: HEPARIN NA (PORCINE) 5,000 UNITS/ML 1ML VIAL SQ SCH ×3 (06:05→22:32)
[2017-10-07] MEDS: DEXTROSE 5%-0.45% SALINE 1,000 ML IV SCH ×2 (08:05→19:00)
[2017-10-07 08:17] LABS: HEMATOCRIT 29.9 % (35.4-49); HEMOGLOBIN 9.6 GM/dL (11.7-16.9); MCH 28.8 pg (25.7-33.7); MCHC 32.1 g/dl (32.0-35.9); MEAN CELL VOLUME 89.7 fl (80-96); MEAN PLT VOLUME 8.2 fl (7.5-11.1); PLATELET COUNT 278 K/MM3 (134-434); RBC 3.33 M/mm3 (4.00-5.60); RDW 12.7 % (11.9-15.9); WHITE BLOOD COUNT 14.6 K/mm3 (4.0-10.0)
[2017-10-07 08:22] LABS: ANION GAP 10 (8-16); BLOOD UREA NITROGEN 15 mg/dL (7-18); CALCIUM 8.8 mg/dL (8.5-10.1); CHLORIDE 109 mmol/L (98-107); CO2 25 mmol/L (21-32); GLUCOSE,RANDOM 125 mg/dL (74-106); MAGNESIUM 1.8 mg/dL (1.8-2.4); POTASSIUM 3.4 mmol/L (3.5-5.1); SODIUM 144 mmol/L (136-145)
[2017-10-07 08:24] LABS: CREATININE 1.2 mg/dL (0.7-1.3)
[2017-10-07] MEDS: PANTOPRAZOLE SODIUM 40 MG VIAL IVPUSH SCH (09:21)
[2017-10-07] MEDS: dilTIAZem HCL 50 MG/10 ML - 10 ML VIAL IVPUSH PRN (09:21)
[2017-10-07] MEDS: ARTIFICIAL TEARS (POLYVINYL ALCOHOL 1.4%) OPTH DROPS OD SCH ×2 (09:22→22:31)
[2017-10-07] MEDS ORDERED: MAGNESIUM SULF 50% (8.12 MEQ/2 ML-1 GM VIAL) IVPB ONE (11:45)
[2017-10-07] MEDS ORDERED: POTASSIUM CHLORIDE 10 MEQ in SODIUM CHLORIDE 100 ML IVPB ONE (12:00)
--- NOTE | 2017-10-07 13:24 | PN ---
Progress Note, Physician History of Present Illness: POD#3 partial transverse colectomy for incomplete endoscopically resected colon polyp/tubular adenoma, comfortable post-op, reports flatus and 2 BM. Episodes of rapid afib rate-controlled on Cardizem IV. - Current Medication List Current Medications: Active Medications Albuterol Sulfate (Ventolin 0.083% Nebulizer Soln -) 1 amp NEB Q4H PRN PRN Reason: SHORT OF BREATH/WHEEZING Artificial Tears (Artificial Tears) 1 drop OD BID [facility] Last Admin: 10/07/17 09:22 Dose: 1 drop Bicalutamide (Casodex -) 50 mg PO DAILY [facility] Diltiazem HCl (Cardizem Injection -) 10 mg IVPUSH Q4H PRN PRN Reason: TACHYCARDIA Last Admin: 10/07/17 09:21 Dose: 10 mg Donepezil HCl (Aricept -) 10 mg PO HS [facility] Heparin Sodium (Porcine) (Heparin -) 5,000 unit SQ TID [facility] Last Admin: 10/07/17 06:05 Dose: 5,000 unit Dextrose/Sodium Chloride (D5-1/2ns -) 1,000 mls @ 83 mls/hr IV ASDIR [facility] Last Admin: 10/07/17 08:05 Dose: 83 mls/hr Midodrine (Proamatine -) 10 mg PO TID-MID [facility] Morphine Sulfate (Morphine Sulfate) 4 mg IVPUSH Q3H PRN PRN Reason: PAIN Last Admin: 10/06/17 18:03 Dose: 4 mg Ondansetron HCl (Zofran Injection) 4 mg IVPUSH Q6H PRN PRN Reason: NAUSEA AND/OR VOMITING Pantoprazole Sodium (Protonix Iv) 40 mg IVPUSH DAILY [facility] Last Admin: 10/07/17 09:21 Dose: 40 mg Quetiapine Fumarate (Seroquel -) 25 mg PO HS [facility] Thiamine HCl (Vitamin B1 -) 100 mg PO HS [facility] - Objective Vital Signs: Vital Signs Temperature 98.4 F 10/07/17 10:00 Pulse Rate 115 H 10/07/17 10:00 Respiratory Rate 20 10/07/17 10:00 Blood Pressure 150/81 10/07/17 10:00 O2 Sat by Pulse Oximetry (%) 96 10/07/17 09:00 Constitutional: Yes: No Distress, Calm, Thin Neck: Yes: Supple Cardiovascular: Yes: Pulse Irregular Respiratory: Yes: Regular, Dillon-Jain, Diminished Gastrointestinal: Yes: Soft, Hypoactive Bowel Sounds Edema: No Labs: CBC, BMP 10/07/17 05:35 10/07/17 05:35 INR, PTT INR 1.12 (0.82-1.09) 10/04/17 15:15 - ....Imaging EKG: Report Reviewed (Tele: Rate-controlled afib) Problem List - Problems (1) Fall Code(s): W19.XXXA - UNSPECIFIED FALL, INITIAL ENCOUNTER Qualifiers: Encounter type: subsequent encounter Qualified Code(s): W19.XXXD - Unspecified fall, subsequent encounter (2) Weight loss Code(s): R63.4 - ABNORMAL WEIGHT LOSS (3) Adenocarcinoma of prostate Code(s): C61 - MALIGNANT NEOPLASM OF PROSTATE (4) Atrial fibrillation Code(s): I48.91 - UNSPECIFIED ATRIAL FIBRILLATION Qualifiers: Atrial fibrillation type: persistent Qualified Code(s): I48.1 - Persistent atrial fibrillation (5) Chronic kidney disease (CKD) Code(s): N18.9 - CHRONIC KIDNEY DISEASE, UNSPECIFIED Qualifiers: Chronic kidney disease stage: stage 3 (moderate) Qualified Code(s): N18.3 - Chronic kidney disease, stage 3 (moderate) (6) Diastolic CHF Code(s): I50.30 - UNSPECIFIED DIASTOLIC (CONGESTIVE) HEART FAILURE Qualifiers: Congestive heart failure chronicity: chronic Qualified Code(s): I50.32 - Chronic diastolic (congestive) heart failure (7) HTN (hypertension) Code(s): I10 - ESSENTIAL (PRIMARY) HYPERTENSION Qualifiers: Hypertension type: essential hypertension Qualified Code(s): I10 - Essential (primary) hypertension (8) Hypercholesterolemia Code(s): E78.00 - PURE HYPERCHOLESTEROLEMIA, UNSPECIFIED (9) Hypothyroidism Code(s): E03.9 - HYPOTHYROIDISM, UNSPECIFIED Qualifiers: Hypothyroidism type: unspecified Qualified Code(s): E03.9 - Hypothyroidism , unspecified (10) Orthostatic hypotension Code(s): I95.1 - ORTHOSTATIC HYPOTENSION (11) Status post orchiectomy Code(s): Z90.79 - ACQUIRED ABSENCE OF OTHER GENITAL ORGAN(S) (12) Status post partial colectomy Code(s): Z90.49 - ACQUIRED ABSENCE OF OTHER SPECIFIED PARTS OF DIGESTIVE TRACT (13) Colon polyps Code(s): K63.5 - POLYP OF COLON Qualifiers: Colon polyp type: unspecified Colon location: descending Qualified Code(s ): D12.4 - Benign neoplasm of descending colon Assessment/Plan 1. Inadvertent weight loss - remaining polyps s/p partial transverse colectomy POD #3 2. Atrial fibrillation with variable ventricular response 3. Hypertension 4. Hypercholesterolemia 5. 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 Hypothyroidism 7. 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 Chronic kidney disease 9. History of diverticulitis 10. Positional dizziness post mechanical fall and orthostatic hypotension PLAN: 1. Eliquis 5 bid held awaiting post-op hemostasis per surgery, sq heparin in meantime 2. Bowel function recovering, start clears and advance as tolerated, early ambulation, analgesia as needed 3. IV Cardizem as needed for rate-control, may transition to oral as tolerated
--- NOTE | 2017-10-07 14:41 | PN ---
Progress Note, Physician History of Present Illness: s/p partial transverse colectomy resting comfortably seen and examined in bed less abdominal pain + flatus and BM yesterday and today NG in place with little output, clear - removed at bedside [place] out, voiding in urinal pt would like orange juice - Current Medication List Current Medications: Active Medications Albuterol Sulfate (Ventolin 0.083% Nebulizer Soln -) 1 amp NEB Q4H PRN PRN Reason: SHORT OF BREATH/WHEEZING Artificial Tears (Artificial Tears) 1 drop OD BID [facility] Last Admin: 10/07/17 09:22 Dose: 1 drop Bicalutamide (Casodex -) 50 mg PO DAILY [facility] Diltiazem HCl (Cardizem Injection -) 10 mg IVPUSH Q4H PRN PRN Reason: TACHYCARDIA Last Admin: 10/07/17 09:21 Dose: 10 mg Donepezil HCl (Aricept -) 10 mg PO HS [facility] Heparin Sodium (Porcine) (Heparin -) 5,000 unit SQ TID [facility] Last Admin: 10/07/17 13:43 Dose: 5,000 unit Dextrose/Sodium Chloride (D5-1/2ns -) 1,000 mls @ 83 mls/hr IV ASDIR [facility] Last Admin: 10/07/17 08:05 Dose: 83 mls/hr Midodrine (Proamatine -) 10 mg PO TID-MID [facility] Morphine Sulfate (Morphine Sulfate) 4 mg IVPUSH Q3H PRN PRN Reason: PAIN Last Admin: 10/06/17 18:03 Dose: 4 mg Ondansetron HCl (Zofran Injection) 4 mg IVPUSH Q6H PRN PRN Reason: NAUSEA AND/OR VOMITING Pantoprazole Sodium (Protonix Iv) 40 mg IVPUSH DAILY [facility] Last Admin: 10/07/17 09:21 Dose: 40 mg Quetiapine Fumarate (Seroquel -) 25 mg PO HS [facility] Thiamine HCl (Vitamin B1 -) 100 mg PO HS [facility] - Objective Vital Signs: Vital Signs Temperature 98.1 F 10/07/17 14:11 Pulse Rate 112 H 10/07/17 14:11 Respiratory Rate 20 10/07/17 14:11 Blood Pressure 162/81 10/07/17 14:11 O2 Sat by Pulse Oximetry (%) 96 10/07/17 09:00 Vital Signs Period Temp Pulse Resp BP Sys/Ching Pulse Ox Last 24 Hr 97.8 F-98.4 F 92-120 18-20 112-168/65-86 95-96 Intake & Output 10/06/17 10/07/17 10/07/17 23:59 07:59 15:59 Intake Total 415 581 Output Total 750 450 Balance -335 131 Intake: IV 415 581 D5-1/2Ns - 1,000 ml @ 83 415 581 mls/hr IV ASDIR [facility] Rx#: [id number] Output: Urine 750 450 [place] 700 Void 50 450 Other: Voiding Method Urinal Urinal # Unmeasured Voids Void 1 Bowel Movement Yes Constitutional: Yes: Well Nourished, No Distress, Calm Eyes: Yes: Conjunctiva Clear, EOM Intact HENT: Yes: Normocephalic, Other (elena at left crown of head; NGT with clear output - removed) Cardiovascular: Yes: Tachycardia (mild), Pulse Irregular Respiratory: Yes: Regular, CTA Bilaterally Gastrointestinal: Yes: Soft, Distention (with tympany), Hypoactive Bowel Sounds , Tenderness (mild diffuse/incisional) Genitourinary: Yes: Incontinence (once overnight). No: [place] Present Musculoskeletal: No: Joint Stiffness, Joint Swelling Extremities: No: Cool, Cyanosis Integumentary: Yes: Incision (midline). No: Rash Wound/Incision: Yes: Clean/Dry, Well Approximated, [place] Intact, Open to air. No: Reddened (pink in spots at elena, no surrounding erythema or s/s infection) Neurological: Yes: Alert, Oriented Labs: CBC, BMP 10/07/17 05:35 10/07/17 05:35 Mg 1.8 K and Mg repleted Problem List - Problems (1) Colon polyps Assessment/Plan: POD3 s/p partial transverse colectomy for incompletely endoscopically resected polyp path on endoscopically removed portion of polyp was tubular adenoma polyp visualized in specimen removed, surgical pathology pending overall doing well NGT removed - ok to start clears, advised to go slowly ok for po meds to resume today/tonight except continue to HOLD ELIQUIS GI/DVT prophylaxis pain meds prn - will change to po continue IS and pulmonary toilet OOB to chair tid and ok to ambulate with assistance - PT to see after holiday midline incision with elena c/d/i follow labs voiding after [place] out, strict I/Os renal function at baseline Code(s): K63.5 - POLYP OF COLON Qualifiers: Colon polyp type: adenomatous Colon location: transverse Qualified Code(s ): D12.3 - Benign neoplasm of transverse colon (2) 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 Code(s): D49.0 - NEOPLASM OF UNSPECIFIED BEHAVIOR OF DIGESTIVE SYSTEM (3) Orthostatic hypotension Code(s): I95.1 - ORTHOSTATIC HYPOTENSION (4) Recurrent falls Code(s): R29.6 - REPEATED FALLS (5) Weight loss Code(s): R63.4 - ABNORMAL WEIGHT LOSS (6) History of open sigmoidectomy Code(s): Z98.890 - OTHER SPECIFIED POSTPROCEDURAL STATES; Z90.49 - ACQUIRED ABSENCE OF OTHER SPECIFIED PARTS OF DIGESTIVE TRACT (7) Atrial fibrillation Code(s): I48.91 - UNSPECIFIED ATRIAL FIBRILLATION Qualifiers: Atrial fibrillation type: persistent Qualified Code(s): I48.1 - Persistent atrial fibrillation (8) Chronic kidney disease (CKD) Code(s): N18.9 - CHRONIC KIDNEY DISEASE, UNSPECIFIED Qualifiers: Chronic kidney disease stage: stage 3 (moderate) Qualified Code(s): N18.3 - Chronic kidney disease, stage 3 (moderate) (9) HTN (hypertension) Code(s): I10 - ESSENTIAL (PRIMARY) HYPERTENSION Qualifiers: Hypertension type: essential hypertension Qualified Code(s): I10 - Essential (primary) hypertension (10) Hyperlipidemia associated with type 2 diabetes mellitus Code(s): E11.69 - TYPE 2 DIABETES MELLITUS WITH OTHER SPECIFIED COMPLICATION; E78.5 - HYPERLIPIDEMIA, UNSPECIFIED (11) 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
[2017-10-07] MEDS ORDERED: ACETAMINOPHEN 325 MG TABLET (FP) PO PRN (15:30)
[2017-10-07] MEDS ORDERED: oxyCODONE HCL 5 MG TABLET PO PRN (15:30)
[2017-10-07] MEDS ORDERED: morphine SULFATE 4 MG/ML VIAL IVPUSH PRN (15:31)
--- NOTE | 2017-10-07 17:42 | PN ---
Progress Note (short form) - Note Progress Note: covering dr alin miles/atn ckd s/p fall s/p colonoscopy +large unresctable polyp now s/p hemicolectomy saturday on ivf Current Medications Acetaminophen (Tylenol -) 650 mg PO Q6H PRN PRN Reason: PAIN Albuterol Sulfate (Ventolin 0.083% Nebulizer Soln -) 1 amp NEB Q4H PRN PRN Reason: SHORT OF BREATH/WHEEZING Artificial Tears (Artificial Tears) 1 drop OD BID [facility] Last Admin: 10/07/17 09:22 Dose: 1 drop Bicalutamide (Casodex -) 50 mg PO DAILY [facility] Diltiazem HCl (Cardizem Injection -) 10 mg IVPUSH Q4H PRN PRN Reason: TACHYCARDIA Last Admin: 10/07/17 09:21 Dose: 10 mg Donepezil HCl (Aricept -) 10 mg PO HS [facility] Heparin Sodium (Porcine) (Heparin -) 5,000 unit SQ TID [facility] Last Admin: 10/07/17 13:43 Dose: 5,000 unit Dextrose/Sodium Chloride (D5-1/2ns -) 1,000 mls @ 83 mls/hr IV ASDIR [facility] Last Admin: 10/07/17 08:05 Dose: 83 mls/hr Midodrine (Proamatine -) 10 mg PO TID-MID [facility] Morphine Sulfate (Morphine Sulfate) 2 mg IVPUSH Q3H PRN PRN Reason: SEVERE PAIN Ondansetron HCl (Zofran Injection) 4 mg IVPUSH Q6H PRN PRN Reason: NAUSEA AND/OR VOMITING Oxycodone HCl (Roxicodone -) 5 mg PO Q6H PRN PRN Reason: SEVERE PAIN Pantoprazole Sodium (Protonix Iv) 40 mg IVPUSH DAILY [facility] Last Admin: 10/07/17 09:21 Dose: 40 mg Quetiapine Fumarate (Seroquel -) 25 mg PO HS [facility] Thiamine HCl (Vitamin B1 -) 100 mg PO HS [facility] Last Vital Signs Temp Pulse Resp BP Pulse Ox 98.1 F 112 H 20 162/81 96 10/07/17 14:11 10/07/17 14:11 10/07/17 14:11 10/07/17 14:11 10/07/17 09:00 Lungs clear Heart reg Abd soft no guarding Ext no edema CBC, BMP 12/25/17 05:35 10/07/17 05:35 CBC, BMP 10/06/17 06:15 10/06/17 06:15 IMP- ckd postop s/p ginger on chronic much better monitor i and o's continue ivf and oral rehydration
--- NOTE | 2017-10-07 18:03 | PN ---
Progress Note, Physician Chief Complaint: AWAKE ALERT MILD DISTRESS - Current Medication List Current Medications: Active Medications Acetaminophen (Tylenol -) 650 mg PO Q6H PRN PRN Reason: PAIN Albuterol Sulfate (Ventolin 0.083% Nebulizer Soln -) 1 amp NEB Q4H PRN PRN Reason: SHORT OF BREATH/WHEEZING Artificial Tears (Artificial Tears) 1 drop OD BID [facility] Last Admin: 10/07/17 09:22 Dose: 1 drop Bicalutamide (Casodex -) 50 mg PO DAILY [facility] Diltiazem HCl (Cardizem Injection -) 10 mg IVPUSH Q4H PRN PRN Reason: TACHYCARDIA Last Admin: 10/07/17 09:21 Dose: 10 mg Donepezil HCl (Aricept -) 10 mg PO HS [facility] Heparin Sodium (Porcine) (Heparin -) 5,000 unit SQ TID [facility] Last Admin: 10/07/17 13:43 Dose: 5,000 unit Dextrose/Sodium Chloride (D5-1/2ns -) 1,000 mls @ 83 mls/hr IV ASDIR [facility] Last Admin: 10/07/17 08:05 Dose: 83 mls/hr Midodrine (Proamatine -) 10 mg PO TID-MID [facility] Morphine Sulfate (Morphine Sulfate) 2 mg IVPUSH Q3H PRN PRN Reason: SEVERE PAIN Ondansetron HCl (Zofran Injection) 4 mg IVPUSH Q6H PRN PRN Reason: NAUSEA AND/OR VOMITING Oxycodone HCl (Roxicodone -) 5 mg PO Q6H PRN PRN Reason: SEVERE PAIN Pantoprazole Sodium (Protonix Iv) 40 mg IVPUSH DAILY [facility] Last Admin: 10/07/17 09:21 Dose: 40 mg Quetiapine Fumarate (Seroquel -) 25 mg PO HS [facility] Thiamine HCl (Vitamin B1 -) 100 mg PO HS [facility] - Objective Vital Signs: Vital Signs Temperature 98.1 F 10/07/17 14:11 Pulse Rate 112 H 10/07/17 14:11 Respiratory Rate 20 10/07/17 14:11 Blood Pressure 162/81 10/07/17 14:11 O2 Sat by Pulse Oximetry (%) 96 10/07/17 09:00 Constitutional: Yes: Mild Distress Eyes: Yes: WNL HENT: Yes: WNL Neck: Yes: WNL Cardiovascular: Yes: WNL Respiratory: Yes: WNL Gastrointestinal: Yes: Other Musculoskeletal: Yes: Muscle Weakness Extremities: Yes: WNL Edema: No Peripheral Pulses WNL: Yes Integumentary: Yes: WNL Wound/Incision: Yes: Clean/Dry Neurological: Yes: WNL ...Motor Strength: WNL Psychiatric: Yes: WNL Labs: CBC, BMP 10/07/17 05:35 10/07/17 05:35 INR, PTT INR 1.12 (0.82-1.09) 10/04/17 15:15 Problem List - Problems (1) COPD (chronic obstructive pulmonary disease) Code(s): J44.9 - CHRONIC OBSTRUCTIVE PULMONARY DISEASE, UNSPECIFIED (2) Colon polyps Code(s): K63.5 - POLYP OF COLON Qualifiers: Colon polyp type: adenomatous Colon location: transverse Qualified Code(s ): D12.3 - Benign neoplasm of transverse colon (3) History of open sigmoidectomy Code(s): Z98.890 - OTHER SPECIFIED POSTPROCEDURAL STATES; Z90.49 - ACQUIRED ABSENCE OF OTHER SPECIFIED PARTS OF DIGESTIVE TRACT (4) 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 Code(s): D49.0 - NEOPLASM OF UNSPECIFIED BEHAVIOR OF DIGESTIVE SYSTEM (5) 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
[2017-10-07] MEDS ORDERED: PT OWN MED DRAWER 7, Y5N ONE (22:28)
[2017-10-07] MEDS: QUEtiapine FUMARATE 25 MG TABLET (FP) PO SCH (22:32)
[2017-10-07] MEDS: DONEPEZIL HCL 10 MG TABLET (FP) PO SCH (22:32)
[2017-10-07] MEDS: THIAMINE HCL 100 MG TABLET (FP) PO SCH (22:32)
[2017-10-08] MEDS ORDERED: LORazepam 2 MG/ML SDV VIAL IVPUSH ONE (00:58)
[2017-10-08] MEDS ORDERED: LORazepam 2 MG/ML SDV VIAL ONE (01:02)
--- NOTE | 2017-10-08 01:09 | HOSP ---
Physical Examination Vital Signs: Vital Signs Temperature 98.3 F 10/07/17 21:00 Pulse Rate 98 H 10/07/17 21:00 Respiratory Rate 20 10/07/17 21:00 Blood Pressure 151/82 10/07/17 21:00 O2 Sat by Pulse Oximetry (%) 96 10/07/17 21:00 Labs: CBC, BMP 10/07/17 05:35 10/07/17 05:35 Hospitalist Encounter Assessment: I was called by the nurse to evaluate patient mentioned for agitation. Upon arrival patient was resting in his bed but he was confused, claiming he wants to get out of bed to do laundry. patient is AAO x3 but has hallucination. patient has a history of Alzheimer dementia Vitals : 98.3, 151/82, 98, 96% RA PE : Head : NC /At Neck: supple Lungs : CTA B/L Heart : RRR, No MRG Abdomen, obesed distended, tender to palpation, normal BS , surgery incision and stitches in the mid line. Legs: No edema AP , delirium vs Alzhiemer dementia Ativan 2 mg IVpush skinny richter apply follow up with his PCP in AM . Visit type - Emergency Visit Emergency Visit: Yes ED Registration Date: 09/28/17 Care time: The patient presented to the Emergency Department on the above date and was hospitalized for further evaluation of their emergent condition. - New Patient This patient is new to me today: Yes Date on this admission: 10/08/17 - Critical Care Critical Care patient: No
[2017-10-08] MEDS: HEPARIN NA (PORCINE) 5,000 UNITS/ML 1ML VIAL SQ SCH (05:26)
--- NOTE | 2017-10-08 07:43 | PN ---
Progress Note (short form) - Note Progress Note: Chief Complaint: Events noted, notes reviewed, confusion, disorientation and agitation last night requiring restraints, denies any chest pain or dyspnea History of Present Illness: Seen and examined on telemetry. Events noted, notes reviewed, confusion, disorientation and agitation last night requiring restraints, denies any chest pain or dyspnea Remains in atrial fibrillation currently off of A/C Echocardiography dated 05/20/17 revealed normal LV size and systolic function with no significant valvular pathology - Current Medication List Current Medications Acetaminophen (Tylenol -) 650 mg PO Q6H PRN PRN Reason: PAIN Albuterol Sulfate (Ventolin 0.083% Nebulizer Soln -) 1 amp NEB Q4H PRN PRN Reason: SHORT OF BREATH/WHEEZING Artificial Tears (Artificial Tears) 1 drop OD BID [facility] Last Admin: 10/07/17 22:31 Dose: 1 drop Bicalutamide (Casodex -) 50 mg PO DAILY [facility] Diltiazem HCl (Cardizem Injection -) 10 mg IVPUSH Q4H PRN PRN Reason: TACHYCARDIA Last Admin: 10/07/17 09:21 Dose: 10 mg Donepezil HCl (Aricept -) 10 mg PO [facility] Last Admin: 10/07/17 22:32 Dose: 10 mg Heparin Sodium (Porcine) (Heparin -) 5,000 unit SQ TID [facility] Last Admin: 10/08/17 05:26 Dose: 5,000 unit Dextrose/Sodium Chloride (D5-1/2ns -) 1,000 mls @ 83 mls/hr IV ASDIR [facility] Last Admin: 10/07/17 19:00 Dose: 83 mls/hr Midodrine (Proamatine -) 10 mg PO TID-MID [facility] Morphine Sulfate (Morphine Sulfate) 2 mg IVPUSH Q3H PRN PRN Reason: SEVERE PAIN Ondansetron HCl (Zofran Injection) 4 mg IVPUSH Q6H PRN PRN Reason: NAUSEA AND/OR VOMITING Oxycodone HCl (Roxicodone -) 5 mg PO Q6H PRN PRN Reason: SEVERE PAIN Pantoprazole Sodium (Protonix Iv) 40 mg IVPUSH DAILY [facility] Last Admin: 10/07/17 09:21 Dose: 40 mg Quetiapine Fumarate (Seroquel -) 25 mg PO HS [facility] Last Admin: 10/07/17 22:32 Dose: 25 mg Thiamine HCl (Vitamin B1 -) 100 mg PO HS [facility] Last Admin: 10/07/17 22:32 Dose: 100 mg Review of Systems Cardiovascular: As noted above Respiratory: denies: Cough or Sputum Production Gastrointestinal: denies: Nausea, Vomiting, Diarrhea, Constipation or Abdominal Discomfort Musculoskeletal: No Symptoms Reported Endocrine: No Symptoms Reported - Objective Vital Signs: Last Vital Signs Temp Pulse Resp BP Pulse Ox 98.0 F 104 H 20 157/91 96 10/08/17 06:00 10/08/17 06:00 10/08/17 06:00 10/08/17 06:00 10/07/17 21:00 Intake & Output 10/05/17 10/06/17 10/07/17 10/08/17 23:59 23:59 23:59 23:59 Intake Total 913 1328 1296 581 Output Total 2300 1400 1300 225 Balance -1387 -72 -4 356 Neck: Supple Negative JVD No Bruit Cardiovascular: S1 S2 Irregularly Irregular No Murmurs, Clicks or Gallops Respiratory: Diminished Breath sounds at the Bases Gastrointestinal: Soft Benign Normal Bowel Sounds Ext: No Edema Labs: Blood test from this AM pending Assessment/Plan ASSESSMENT: 1. Post partial transverse colectomy for polyps POD # 4 2. CAD angina pectoris, stable 3. Diastolic LV dysfunction with class 0-I NYHA classification LV congestive heart failure, compensated/euvolemic 4. Permanent atrial fibrillation on chronic A/C currently off of NOAC's/Eliquis 5. HTN 6. 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 Hypothyroidism. 9. COPD/emphysema 10. CKD 11. Prostate carcinoma history with obstructive uropathy 12. Post orchiectomy 13. Anemia PLAN: 1. Resume Cardizem CD 2. Resume Eliquis unless it is absolutely contraindicated with close monitoring of CBC 3. Consider initiation of ACEI or ARBS with close monitoring of renal function unless it is absolutely contraindicated 4. Neuro-status evaluation and management as per the primary team Caro Ordoñez MD
[2017-10-08 07:47] LABS: HEMATOCRIT 28.4 % (35.4-49); HEMOGLOBIN 9.3 GM/dL (11.7-16.9); MCH 29.4 pg (25.7-33.7); MCHC 32.8 g/dl (32.0-35.9); MEAN CELL VOLUME 89.6 fl (80-96); MEAN PLT VOLUME 8.2 fl (7.5-11.1); PLATELET COUNT 278 K/MM3 (134-434); RBC 3.17 M/mm3 (4.00-5.60); RDW 12.7 % (11.9-15.9); WHITE BLOOD COUNT 11.3 K/mm3 (4.0-10.0)
[2017-10-08] MEDS ORDERED: HEPARIN NA (PORCINE) 5,000 UNITS/ML 1ML VIAL SQ SCH (07:59)
[2017-10-08 08:30] LABS: ANION GAP 9 (8-16); BLOOD UREA NITROGEN 11 mg/dL (7-18); CALCIUM 8.8 mg/dL (8.5-10.1); CHLORIDE 111 mmol/L (98-107); CO2 25 mmol/L (21-32); CREATININE 1.1 mg/dL (0.7-1.3); GLUCOSE,RANDOM 92 mg/dL (74-106); MAGNESIUM 1.9 mg/dL (1.8-2.4); POTASSIUM 3.2 mmol/L (3.5-5.1); SODIUM 145 mmol/L (136-145)
[2017-10-08] MEDS ORDERED: PT OWN MED DRAWER 7, Y5N ONE ×2 (09:51→21:59)
[2017-10-08] MEDS: ARTIFICIAL TEARS (POLYVINYL ALCOHOL 1.4%) OPTH DROPS OD SCH ×2 (09:55→22:10)
[2017-10-08] MEDS: APIXABAN 5 MG TABLET PO SCH ×2 (09:55→22:11)
[2017-10-08] MEDS: BICALUTAMIDE 50 MG TABLET (FP) PO SCH (09:56)
[2017-10-08] MEDS: MIDODRINE HCL 5 MG TABLET PO SCH ×3 (09:56→17:28)
[2017-10-08] MEDS: PANTOPRAZOLE SODIUM 40 MG VIAL IVPUSH SCH (09:57)
--- NOTE | 2017-10-08 10:12 | PN ---
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 - Current Medication List Current Medications: Active Medications Acetaminophen (Tylenol -) 650 mg PO Q6H PRN PRN Reason: PAIN Albuterol Sulfate (Ventolin 0.083% Nebulizer Soln -) 1 amp NEB Q4H PRN PRN Reason: SHORT OF BREATH/WHEEZING Apixaban (Eliquis -) 5 mg PO BID [facility] Last Admin: 10/08/17 09:55 Dose: 5 mg Artificial Tears (Artificial Tears) 1 drop OD BID [facility] Last Admin: 10/08/17 09:55 Dose: 1 drop Bicalutamide (Casodex -) 50 mg PO DAILY [facility] Last Admin: 10/08/17 09:56 Dose: 50 mg Diltiazem HCl (Cardizem Injection -) 10 mg IVPUSH Q4H PRN PRN Reason: TACHYCARDIA Last Admin: 10/07/17 09:21 Dose: 10 mg Diltiazem HCl (Cardizem Cd -) 180 mg PO DAILY [facility] Last Admin: 10/08/17 09:55 Dose: 180 mg Donepezil HCl (Aricept -) 10 mg PO HS [facility] Last Admin: 10/07/17 22:32 Dose: 10 mg Dextrose/Sodium Chloride (D5-1/2ns -) 1,000 mls @ 83 mls/hr IV ASDIR [facility] Last Admin: 10/07/17 19:00 Dose: 83 mls/hr Midodrine (Proamatine -) 10 mg PO TID-MID [facility] Last Admin: 10/08/17 09:56 Dose: 10 mg Morphine Sulfate (Morphine Sulfate) 2 mg IVPUSH Q3H PRN PRN Reason: SEVERE PAIN Ondansetron HCl (Zofran Injection) 4 mg IVPUSH Q6H PRN PRN Reason: NAUSEA AND/OR VOMITING Oxycodone HCl (Roxicodone -) 5 mg PO Q6H PRN PRN Reason: SEVERE PAIN Pantoprazole Sodium (Protonix Iv) 40 mg IVPUSH DAILY [facility] Last Admin: 10/08/17 09:57 Dose: 40 mg Quetiapine Fumarate (Seroquel -) 25 mg PO [facility] Last Admin: 10/07/17 22:32 Dose: 25 mg Thiamine HCl (Vitamin B1 -) 100 mg PO [facility] Last Admin: 10/07/17 22:32 Dose: 100 mg - Objective Vital Signs: Vital Signs Temperature 98.0 F 10/08/17 06:00 Pulse Rate 104 H 10/08/17 06:00 Respiratory Rate 20 10/08/17 06:00 Blood Pressure 157/91 10/08/17 06:00 O2 Sat by Pulse Oximetry (%) 96 10/07/17 21:00 Constitutional: Yes: Well Nourished, No Distress, Calm Cardiovascular: Yes: Pulse Irregular Respiratory: Yes: Regular Musculoskeletal: Yes: WNL Extremities: Yes: WNL Edema: No Peripheral Pulses WNL: Yes Neurological: Yes: Alert Psychiatric: Yes: Alert Labs: CBC, BMP 10/08/17 05:35 10/08/17 05:35 INR, PTT INR 1.12 (0.82-1.09) 10/04/17 15:15 Problem List - Problems (1) Fall Assessment/Plan: -likely secondary to orthostatic hypotension -on midodrine now -cardizem restarted -physical therapy Code(s): W19.XXXA - UNSPECIFIED FALL, INITIAL ENCOUNTER Qualifiers: Encounter type: subsequent encounter Qualified Code(s): W19.XXXD - Unspecified fall, subsequent encounter (2) Weight loss Assessment/Plan: -EGD and colonoscopy -secondary to disease process polyp pathology shows tubular adenoma Code(s): R63.4 - ABNORMAL WEIGHT LOSS (3) SILAS (acute kidney injury) Assessment/Plan: -close to his baseline -improved after IVF -renal consult Code(s): N17.9 - ACUTE KIDNEY FAILURE, UNSPECIFIED (4) Atrial fibrillation Assessment/Plan: -Chronic -eliquis on hold Code(s): I48.91 - UNSPECIFIED ATRIAL FIBRILLATION Qualifiers: Atrial fibrillation type: persistent Qualified Code(s): I48.1 - Persistent atrial fibrillation (5) Orthostatic hypotension Assessment/Plan: -similar episodes in the past -juice's BLLE -midodrine -cardizem restarted -IVF Code(s): I95.1 - ORTHOSTATIC HYPOTENSION (6) Colon polyp Code(s): K63.5 - POLYP OF COLON (7) Status post partial colectomy Code(s): Z90.49 - ACQUIRED ABSENCE OF OTHER SPECIFIED PARTS OF DIGESTIVE TRACT (8) Hypokalemia Assessment/Plan: -Kcl added to IVF repeat labs in AM Code(s): E87.6 - HYPOKALEMIA Assessment/Plan see problem list Physical Therapy Advance diet as tolerated
--- NOTE | 2017-10-08 11:40 | PN ---
Progress Note, Physician History of Present Illness: Covering for Dr. Cameron Chart reviewed. Confused. Abdomen distended. 2 bms yesterday - Current Medication List Current Medications: Active Medications Acetaminophen (Tylenol -) 650 mg PO Q6H PRN PRN Reason: PAIN Albuterol Sulfate (Ventolin 0.083% Nebulizer Soln -) 1 amp NEB Q4H PRN PRN Reason: SHORT OF BREATH/WHEEZING Apixaban (Eliquis -) 5 mg PO BID [facility] Last Admin: 10/08/17 09:55 Dose: 5 mg Artificial Tears (Artificial Tears) 1 drop OD BID [facility] Last Admin: 10/08/17 09:55 Dose: 1 drop Bicalutamide (Casodex -) 50 mg PO DAILY [facility] Last Admin: 10/08/17 09:56 Dose: 50 mg Diltiazem HCl (Cardizem Injection -) 10 mg IVPUSH Q4H PRN PRN Reason: TACHYCARDIA Last Admin: 10/07/17 09:21 Dose: 10 mg Diltiazem HCl (Cardizem Cd -) 180 mg PO DAILY [facility] Last Admin: 10/08/17 09:55 Dose: 180 mg Donepezil HCl (Aricept -) 10 mg PO HS [facility] Last Admin: 10/07/17 22:32 Dose: 10 mg Dextrose/Sodium Chloride (D5-1/2ns -) 1,000 mls @ 83 mls/hr IV ASDIR [facility] Last Admin: 10/07/17 19:00 Dose: 83 mls/hr Midodrine (Proamatine -) 10 mg PO TID-MID [facility] Last Admin: 10/08/17 09:56 Dose: 10 mg Morphine Sulfate (Morphine Sulfate) 2 mg IVPUSH Q3H PRN PRN Reason: SEVERE PAIN Ondansetron HCl (Zofran Injection) 4 mg IVPUSH Q6H PRN PRN Reason: NAUSEA AND/OR VOMITING Oxycodone HCl (Roxicodone -) 5 mg PO Q6H PRN PRN Reason: SEVERE PAIN Pantoprazole Sodium (Protonix Iv) 40 mg IVPUSH DAILY [facility] Last Admin: 10/08/17 09:57 Dose: 40 mg Quetiapine Fumarate (Seroquel -) 25 mg PO HS [facility] Last Admin: 10/07/17 22:32 Dose: 25 mg Thiamine HCl (Vitamin B1 -) 100 mg PO HS [facility] Last Admin: 10/07/17 22:32 Dose: 100 mg - Objective Vital Signs: Vital Signs Temperature 98.0 F 10/08/17 09:50 Pulse Rate 107 H 10/08/17 09:50 Respiratory Rate 18 10/08/17 09:50 Blood Pressure 149/73 10/08/17 09:50 O2 Sat by Pulse Oximetry (%) 96 10/07/17 21:00 Eyes: Yes: Conjunctiva Clear HENT: Yes: Atraumatic Neck: Yes: Supple Respiratory: Yes: Regular Gastrointestinal: Yes: Distention, Tenderness Neurological: Yes: Confusion Labs: CBC, BMP 10/08/17 05:35 10/08/17 05:35 INR, PTT INR 1.12 (0.82-1.09) 10/04/17 15:15 Laboratory Results - last 24 hr 10/08/17 10/08/17 05:35 05:35 WBC 11.3 H RBC 3.17 L Hgb 9.3 L Hct 28.4 L MCV 89.6 MCH 29.4 MCHC 32.8 RDW 12.7 Plt Count 278 MPV 8.2 Sodium 145 Potassium 3.2 L Chloride 111 H Carbon Dioxide 25 Anion Gap 9 BUN 11 D Creatinine 1.1 Random Glucose 92 D Calcium 8.8 Magnesium 1.9 Problem List - Problems (1) Weight loss Code(s): R63.4 - ABNORMAL WEIGHT LOSS (2) Colon polyp Code(s): K63.5 - POLYP OF COLON Assessment/Plan Multiple colon polyps, moderate diverticulosis of the sigmoid colon Colon polyp at 60 cm suspicious for advanced features s/p partial transverse colectomy. Confused Distended abdomen, however had bms yesterday. Reevaluate need for pain medications - may contribute/cause confusion, abdominal distension. Will follow.
--- NOTE | 2017-10-08 16:54 | PN ---
Progress Note (short form) - Note Progress Note: covering dr alin miles/atn ckd s/p fall s/p colonoscopy +large unresctable polyp now s/p hemicolectomy saturday on ivf Current Medications Acetaminophen (Tylenol -) 650 mg PO Q6H PRN PRN Reason: PAIN Albuterol Sulfate (Ventolin 0.083% Nebulizer Soln -) 1 amp NEB Q4H PRN PRN Reason: SHORT OF BREATH/WHEEZING Apixaban (Eliquis -) 5 mg PO BID [facility] Last Admin: 10/08/17 09:55 Dose: 5 mg Artificial Tears (Artificial Tears) 1 drop OD BID [facility] Last Admin: 10/08/17 09:55 Dose: 1 drop Bicalutamide (Casodex -) 50 mg PO DAILY [facility] Last Admin: 10/08/17 09:56 Dose: 50 mg Diltiazem HCl (Cardizem Injection -) 10 mg IVPUSH Q4H PRN PRN Reason: TACHYCARDIA Last Admin: 10/07/17 09:21 Dose: 10 mg Diltiazem HCl (Cardizem Cd -) 180 mg PO DAILY [facility] Last Admin: 10/08/17 09:55 Dose: 180 mg Donepezil HCl (Aricept -) 10 mg PO HS [facility] Last Admin: 10/07/17 22:32 Dose: 10 mg Dextrose/Lactated Ringer's (D5-Lr+20 Meq Kcl -) 20 meq in 1,000 mls @ 83 mls/ hr IV ASDIR [facility] Midodrine (Proamatine -) 10 mg PO TID-MID [facility] Last Admin: 10/08/17 14:10 Dose: 10 mg Ondansetron HCl (Zofran Injection) 4 mg IVPUSH Q6H PRN PRN Reason: NAUSEA AND/OR VOMITING Pantoprazole Sodium (Protonix Iv) 40 mg IVPUSH DAILY [facility] Last Admin: 10/08/17 09:57 Dose: 40 mg Quetiapine Fumarate (Seroquel -) 25 mg PO HS [facility] Last Admin: 10/07/17 22:32 Dose: 25 mg Thiamine HCl (Vitamin B1 -) 100 mg PO HS [facility] Last Admin: 10/07/17 22:32 Dose: 100 mg Lungs clear Heart reg Abd soft no guarding Ext no edema CBC, BMP 10/08/17 05:35 10/08/17 05:35 CBC, BMP 10/07/17 05:35 10/07/17 05:35 IMP- ckd postop s/p ginger on chronic much better hypokalemia from npo and ngt suction will give 3 runs of kcl to replace monitor i and o's continue ivf and oral rehydration
[2017-10-08] MEDS ORDERED: KCL 10 MEQ IVPB 10 MEQ/100 ML INFUS.BAG IVPB SCH (17:15)
[2017-10-08] MEDS: D5-LR+20 MEQ KCL - 20 MEQ/1,000 ML INFUS.BAG IV SCH (17:50)
--- NOTE | 2017-10-08 18:33 | PN ---
Progress Note, Physician History of Present Illness: s/p partial transverse colectomy resting comfortably seen and examined in bed no c/o abdominal pain + flatus per nurse, only smear of BM today NG out, tolerating liquids - had fulls for dinner, no nausea confused last night - has required [place] became combative with PT today - Current Medication List Current Medications: Active Medications Acetaminophen (Tylenol -) 650 mg PO Q6H PRN PRN Reason: PAIN Albuterol Sulfate (Ventolin 0.083% Nebulizer Soln -) 1 amp NEB Q4H PRN PRN Reason: SHORT OF BREATH/WHEEZING Apixaban (Eliquis -) 5 mg PO BID [facility] Last Admin: 10/08/17 09:55 Dose: 5 mg Artificial Tears (Artificial Tears) 1 drop OD BID [facility] Last Admin: 10/08/17 09:55 Dose: 1 drop Bicalutamide (Casodex -) 50 mg PO DAILY [facility] Last Admin: 10/08/17 09:56 Dose: 50 mg Diltiazem HCl (Cardizem Injection -) 10 mg IVPUSH Q4H PRN PRN Reason: TACHYCARDIA Last Admin: 10/07/17 09:21 Dose: 10 mg Diltiazem HCl (Cardizem Cd -) 180 mg PO DAILY [facility] Last Admin: 10/08/17 09:55 Dose: 180 mg Donepezil HCl (Aricept -) 10 mg PO HS [facility] Last Admin: 10/07/17 22:32 Dose: 10 mg Dextrose/Lactated Ringer's (D5-Lr+20 Meq Kcl -) 20 meq in 1,000 mls @ 83 mls/ hr IV ASDIR [facility] Last Admin: 10/08/17 17:50 Dose: 83 mls/hr Potassium Chloride (Potassium Chloride 10 Meq Premix Ivpb -) 10 meq in 100 mls @ 100 mls/hr IVPB Q60M [facility] Stop: 10/08/17 20:14 Midodrine (Proamatine -) 10 mg PO TID-MID [facility] Last Admin: 10/08/17 17:28 Dose: 10 mg Ondansetron HCl (Zofran Injection) 4 mg IVPUSH Q6H PRN PRN Reason: NAUSEA AND/OR VOMITING Pantoprazole Sodium (Protonix Iv) 40 mg IVPUSH DAILY [facility] Last Admin: 10/08/17 09:57 Dose: 40 mg Quetiapine Fumarate (Seroquel -) 25 mg PO HS [facility] Last Admin: 10/07/17 22:32 Dose: 25 mg Thiamine HCl (Vitamin B1 -) 100 mg PO [facility] Last Admin: 10/07/17 22:32 Dose: 100 mg - Objective Vital Signs: Vital Signs Temperature 97.8 F 10/08/17 14:17 Pulse Rate 94 H 10/08/17 14:17 Respiratory Rate 20 10/08/17 14:17 Blood Pressure 148/84 10/08/17 14:17 O2 Sat by Pulse Oximetry (%) 96 10/08/17 08:30 Constitutional: Yes: Well Nourished, No Distress, Calm Eyes: Yes: Conjunctiva Clear, EOM Intact Gastrointestinal: Yes: Soft, Distention (tympanic, rounded), Tenderness (mild LLQ and incisional only) Extremities: No: Cool, Cyanosis Integumentary: Yes: Incision (midline). No: Rash Wound/Incision: Yes: Clean/Dry, Well Approximated, [place] Intact (midline abdomen), Open to air Neurological: Yes: Confusion (wakes from snoring - seems appropriate but tired) , Unsteady Gait (not observed - mentions he tends to walk "hunched over" ( unclear if now or previously)) Labs: CBC, BMP 10/08/17 05:35 10/08/17 05:35 Mg 1.9 K repleted today wbc down Cr lower than baseline Problem List - Problems (1) Colon polyps Assessment/Plan: POD4 s/p partial transverse colectomy for incompletely endoscopically resected polyp path on endoscopically removed portion of polyp was tubular adenoma polyp visualized in specimen removed, surgical pathology pending overall doing well NGT out tolerating full liquids would not advance diet until distention resolves and he has more bowel function need to spend more time OOB - chair and/or ambulating with assistance Eliquis restarted by cardiology GI/DVT prophylaxis pain meds prn continue IS and pulmonary toilet midline incision with elena c/d/i follow labs voiding, strict I/Os GI, renal following Code(s): K63.5 - POLYP OF COLON Qualifiers: Colon polyp type: adenomatous Colon location: transverse Qualified Code(s ): D12.3 - Benign neoplasm of transverse colon (2) 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 Code(s): D49.0 - NEOPLASM OF UNSPECIFIED BEHAVIOR OF DIGESTIVE SYSTEM (3) Orthostatic hypotension Code(s): I95.1 - ORTHOSTATIC HYPOTENSION (4) Recurrent falls Code(s): R29.6 - REPEATED FALLS (5) Weight loss Code(s): R63.4 - ABNORMAL WEIGHT LOSS (6) History of open sigmoidectomy Code(s): Z98.890 - OTHER SPECIFIED POSTPROCEDURAL STATES; Z90.49 - ACQUIRED ABSENCE OF OTHER SPECIFIED PARTS OF DIGESTIVE TRACT (7) Atrial fibrillation Code(s): I48.91 - UNSPECIFIED ATRIAL FIBRILLATION Qualifiers: Atrial fibrillation type: persistent Qualified Code(s): I48.1 - Persistent atrial fibrillation (8) Chronic kidney disease (CKD) Code(s): N18.9 - CHRONIC KIDNEY DISEASE, UNSPECIFIED Qualifiers: Chronic kidney disease stage: stage 3 (moderate) Qualified Code(s): N18.3 - Chronic kidney disease, stage 3 (moderate) (9) HTN (hypertension) Code(s): I10 - ESSENTIAL (PRIMARY) HYPERTENSION Qualifiers: Hypertension type: essential hypertension Qualified Code(s): I10 - Essential (primary) hypertension (10) Hyperlipidemia associated with type 2 diabetes mellitus Code(s): E11.69 - TYPE 2 DIABETES MELLITUS WITH OTHER SPECIFIED COMPLICATION; E78.5 - HYPERLIPIDEMIA, UNSPECIFIED (11) 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
[2017-10-08] MEDS: DONEPEZIL HCL 10 MG TABLET (FP) PO SCH (22:10)
[2017-10-08] MEDS: QUEtiapine FUMARATE 25 MG TABLET (FP) PO SCH (22:11)
[2017-10-08] MEDS: THIAMINE HCL 100 MG TABLET (FP) PO SCH (22:11)
[2017-10-08] MEDS ORDERED: POTASSIUM CHLORIDE 30 MEQ in SODIUM CHLORIDE 300 ML IVPB ONE (23:30)
[2017-10-09 09:06] LABS: HEMATOCRIT 28.4 % (35.4-49); HEMOGLOBIN 9.3 GM/dL (11.7-16.9); MCH 29.5 pg (25.7-33.7); MCHC 32.9 g/dl (32.0-35.9); MEAN CELL VOLUME 89.7 fl (80-96); MEAN PLT VOLUME 7.9 fl (7.5-11.1); PLATELET COUNT 311 K/MM3 (134-434); RBC 3.16 M/mm3 (4.00-5.60); RDW 12.9 % (11.9-15.9); WHITE BLOOD COUNT 10.7 K/mm3 (4.0-10.0)
[2017-10-09 09:18] LABS: CHLORIDE 111 mmol/L (98-107); POTASSIUM 3.4 mmol/L (3.5-5.1); SODIUM 146 mmol/L (136-145)
[2017-10-09 09:24] LABS: ALBUMIN 2.1 g/dl (3.4-5.0); ALK PHOS 64 U/L (45-117); ANION GAP 8 (8-16); BILIRUBIN,TOTAL 0.5 mg/dL (0.2-1.0); BLOOD UREA NITROGEN 8 mg/dL (7-18); CALCIUM 8.7 mg/dL (8.5-10.1); CO2 27 mmol/L (21-32); CREATININE 1.1 mg/dL (0.7-1.3); GLUCOSE,RANDOM 86 mg/dL (74-106); SGOT/AST 7 U/L (15-37); SGPT/ALT 10 U/L (12-78); TOT PROT 4.8 g/dl (6.4-8.2)
[2017-10-09] MEDS ORDERED: PT OWN MED DRAWER 7, Y5N ONE ×3 (09:28→17:21)
[2017-10-09] MEDS: PANTOPRAZOLE SODIUM 40 MG VIAL IVPUSH SCH (09:48)
[2017-10-09] MEDS: MIDODRINE HCL 5 MG TABLET PO SCH ×3 (09:48→17:23)
[2017-10-09] MEDS: APIXABAN 5 MG TABLET PO SCH ×2 (09:49→22:46)
[2017-10-09] MEDS: BICALUTAMIDE 50 MG TABLET (FP) PO SCH (09:49)
[2017-10-09] MEDS: ARTIFICIAL TEARS (POLYVINYL ALCOHOL 1.4%) OPTH DROPS OD SCH ×2 (09:49→22:46)
--- NOTE | 2017-10-09 10:46 | PN ---
Progress Note, Physician History of Present Illness: POD#5 partial transverse colectomy for incomplete endoscopically resected colon polyp/tubular adenoma, resting comfortable post-op, rate-controlled afib. - Current Medication List Current Medications: Active Medications Acetaminophen (Tylenol -) 650 mg PO Q6H PRN PRN Reason: PAIN Albuterol Sulfate (Ventolin 0.083% Nebulizer Soln -) 1 amp NEB Q4H PRN PRN Reason: SHORT OF BREATH/WHEEZING Apixaban (Eliquis -) 5 mg PO BID [facility] Last Admin: 10/09/17 09:49 Dose: 5 mg Artificial Tears (Artificial Tears) 1 drop OD BID [facility] Last Admin: 10/09/17 09:49 Dose: 1 drop Bicalutamide (Casodex -) 50 mg PO DAILY [facility] Last Admin: 10/09/17 09:49 Dose: 50 mg Diltiazem HCl (Cardizem Injection -) 10 mg IVPUSH Q4H PRN PRN Reason: TACHYCARDIA Last Admin: 10/07/17 09:21 Dose: 10 mg Diltiazem HCl (Cardizem Cd -) 180 mg PO DAILY [facility] Last Admin: 10/09/17 09:49 Dose: 180 mg Donepezil HCl (Aricept -) 10 mg PO HS [facility] Last Admin: 10/08/17 22:10 Dose: 10 mg Dextrose/Lactated Ringer's (D5-Lr+20 Meq Kcl -) 20 meq in 1,000 mls @ 83 mls/ hr IV ASDIR [facility] Last Admin: 10/08/17 17:50 Dose: 83 mls/hr Midodrine (Proamatine -) 10 mg PO TID-MID [facility] Last Admin: 10/09/17 09:48 Dose: 10 mg Ondansetron HCl (Zofran Injection) 4 mg IVPUSH Q6H PRN PRN Reason: NAUSEA AND/OR VOMITING Pantoprazole Sodium (Protonix Iv) 40 mg IVPUSH DAILY [facility] Last Admin: 10/09/17 09:48 Dose: 40 mg Quetiapine Fumarate (Seroquel -) 25 mg PO HS [facility] Last Admin: 10/08/17 22:11 Dose: 25 mg Thiamine HCl (Vitamin B1 -) 100 mg PO HS [facility] Last Admin: 10/08/17 22:11 Dose: 100 mg - Objective Vital Signs: Vital Signs Temperature 97.6 F 10/09/17 05:55 Pulse Rate 71 10/09/17 05:55 Respiratory Rate 20 10/09/17 05:55 Blood Pressure 131/71 10/09/17 05:55 O2 Sat by Pulse Oximetry (%) 97 10/08/17 21:00 Constitutional: Yes: No Distress, Calm Neck: Yes: Supple Cardiovascular: Yes: Pulse Irregular Respiratory: Yes: Regular, Diminished Gastrointestinal: Yes: Soft, Hypoactive Bowel Sounds Edema: No Labs: CBC, BMP 10/09/17 06:00 10/09/17 06:00 INR, PTT INR 1.12 (0.82-1.09) 10/04/17 15:15 - ....Imaging EKG: Report Reviewed (Tele: Afib rate-controlled) Problem List - Problems (1) Fall Code(s): W19.XXXA - UNSPECIFIED FALL, INITIAL ENCOUNTER Qualifiers: Encounter type: subsequent encounter Qualified Code(s): W19.XXXD - Unspecified fall, subsequent encounter (2) Weight loss Code(s): R63.4 - ABNORMAL WEIGHT LOSS (3) Adenocarcinoma of prostate Code(s): C61 - MALIGNANT NEOPLASM OF PROSTATE (4) Atrial fibrillation Code(s): I48.91 - UNSPECIFIED ATRIAL FIBRILLATION Qualifiers: Atrial fibrillation type: persistent Qualified Code(s): I48.1 - Persistent atrial fibrillation (5) Chronic kidney disease (CKD) Code(s): N18.9 - CHRONIC KIDNEY DISEASE, UNSPECIFIED Qualifiers: Chronic kidney disease stage: stage 3 (moderate) Qualified Code(s): N18.3 - Chronic kidney disease, stage 3 (moderate) (6) Diastolic CHF Code(s): I50.30 - UNSPECIFIED DIASTOLIC (CONGESTIVE) HEART FAILURE Qualifiers: Congestive heart failure chronicity: chronic Qualified Code(s): I50.32 - Chronic diastolic (congestive) heart failure (7) HTN (hypertension) Code(s): I10 - ESSENTIAL (PRIMARY) HYPERTENSION Qualifiers: Hypertension type: essential hypertension Qualified Code(s): I10 - Essential (primary) hypertension (8) Hypercholesterolemia Code(s): E78.00 - PURE HYPERCHOLESTEROLEMIA, UNSPECIFIED (9) Hypothyroidism Code(s): E03.9 - HYPOTHYROIDISM, UNSPECIFIED Qualifiers: Hypothyroidism type: unspecified Qualified Code(s): E03.9 - Hypothyroidism , unspecified (10) Orthostatic hypotension Code(s): I95.1 - ORTHOSTATIC HYPOTENSION (11) Status post orchiectomy Code(s): Z90.79 - ACQUIRED ABSENCE OF OTHER GENITAL ORGAN(S) (12) Status post partial colectomy Code(s): Z90.49 - ACQUIRED ABSENCE OF OTHER SPECIFIED PARTS OF DIGESTIVE TRACT (13) Colon polyps Code(s): K63.5 - POLYP OF COLON Qualifiers: Colon polyp type: adenomatous Colon location: transverse Qualified Code(s ): D12.3 - Benign neoplasm of transverse colon Assessment/Plan Echocardiography dated 05/20/17 revealed normal LV size and systolic function with no significant valvular pathology 1. Post partial transverse colectomy for polyps POD # 5 2. CAD angina pectoris, stable 3. Diastolic LV dysfunction with class 0-I NYHA classification LV congestive heart failure, compensated/euvolemic 4. Permanent atrial fibrillation on chronic A/C currently off of NOAC's/Eliquis 5. HTN 6. 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 Hypothyroidism. 9. COPD/emphysema 10. CKD 11. Prostate carcinoma history with obstructive uropathy 12. Post orchiectomy 13. Anemia 14. Positional dizziness post mechanical fall and orthostatic hypotension PLAN: 1. Resume Cardizem CD 120 qd, on midodrine 10 tid 2. Resumed Eliquis 5 bid per surgery unless it is absolutely contraindicated with close monitoring of CBC 3. Consider initiation of ACEI or ARBS with close monitoring of renal function unless it is absolutely contraindicated 4. Neuro-status evaluation and management as per the primary team 5. Full liquid diet as tolerated 6. OOB - chair and/or ambulating with assistance
--- NOTE | 2017-10-09 11:38 | PN ---
Progress Note, Physician History of Present Illness: Covering for Dr. Cameron Chart reviewed. Confused. Abdomen soft. NAD - Current Medication List Current Medications: Active Medications Acetaminophen (Tylenol -) 650 mg PO Q6H PRN PRN Reason: PAIN Albuterol Sulfate (Ventolin 0.083% Nebulizer Soln -) 1 amp NEB Q4H PRN PRN Reason: SHORT OF BREATH/WHEEZING Apixaban (Eliquis -) 5 mg PO BID [facility] Last Admin: 10/09/17 09:49 Dose: 5 mg Artificial Tears (Artificial Tears) 1 drop OD BID [facility] Last Admin: 10/09/17 09:49 Dose: 1 drop Bicalutamide (Casodex -) 50 mg PO DAILY [facility] Last Admin: 10/09/17 09:49 Dose: 50 mg Diltiazem HCl (Cardizem Injection -) 10 mg IVPUSH Q4H PRN PRN Reason: TACHYCARDIA Last Admin: 10/07/17 09:21 Dose: 10 mg Diltiazem HCl (Cardizem Cd -) 180 mg PO DAILY [facility] Last Admin: 10/09/17 09:49 Dose: 180 mg Donepezil HCl (Aricept -) 10 mg PO HS [facility] Last Admin: 10/08/17 22:10 Dose: 10 mg Dextrose/Lactated Ringer's (D5-Lr+20 Meq Kcl -) 20 meq in 1,000 mls @ 83 mls/ hr IV ASDIR [facility] Last Admin: 10/08/17 17:50 Dose: 83 mls/hr Midodrine (Proamatine -) 10 mg PO TID-MID [facility] Last Admin: 10/09/17 09:48 Dose: 10 mg Ondansetron HCl (Zofran Injection) 4 mg IVPUSH Q6H PRN PRN Reason: NAUSEA AND/OR VOMITING Pantoprazole Sodium (Protonix Iv) 40 mg IVPUSH DAILY [facility] Last Admin: 10/09/17 09:48 Dose: 40 mg Quetiapine Fumarate (Seroquel -) 25 mg PO HS [facility] Last Admin: 10/08/17 22:11 Dose: 25 mg Thiamine HCl (Vitamin B1 -) 100 mg PO HS [facility] Last Admin: 10/08/17 22:11 Dose: 100 mg - Objective Vital Signs: Vital Signs Temperature 97.6 F 10/09/17 05:55 Pulse Rate 71 10/09/17 05:55 Respiratory Rate 20 10/09/17 05:55 Blood Pressure 131/71 10/09/17 05:55 O2 Sat by Pulse Oximetry (%) 97 10/08/17 21:00 Gastrointestinal: Yes: Soft. No: Distention, Melena, Rectal Bleeding, Vomiting Neurological: Yes: Confusion Labs: CBC, BMP 10/09/17 06:00 10/09/17 06:00 INR, PTT INR 1.12 (0.82-1.09) 10/04/17 15:15 Abnormal Lab Results 10/09/17 10/09/17 06:00 06:00 WBC 10.7 H RBC 3.16 L Hgb 9.3 L Hct 28.4 L Sodium 146 H Potassium 3.4 L Chloride 111 H AST 7 L D ALT 10 L D Total Protein 4.8 L Albumin 2.1 L Problem List - Problems (1) Weight loss Code(s): R63.4 - ABNORMAL WEIGHT LOSS (2) Colon polyp Code(s): K63.5 - POLYP OF COLON Assessment/Plan Multiple colon polyps, moderate diverticulosis of the sigmoid colon Colon polyp at 60 cm suspicious for advanced features s/p partial transverse colectomy. Confused Distended abdomen, improved. Hydrate (hypernatremia) Reevaluate need for pain medications - may contribute/cause confusion, abdominal distension. Will follow.
--- NOTE | 2017-10-09 12:12 | PN ---
Progress Note, Physician Chief Complaint: Fall, orthostatic hypotension History of Present Illness: s/p partial transverse colectomy -seen by surgery tolerating full liquid diet abd mildly distended refused to get OOB to chair with PT, Encouraged pt to get OOB with nurses AC Eliquis restarted -cardizem restarted on Aricept and seroquel Mid abdomen surgical incision with staple, dry and intact - Current Medication List Current Medications: Active Medications Acetaminophen (Tylenol -) 650 mg PO Q6H PRN PRN Reason: PAIN Albuterol Sulfate (Ventolin 0.083% Nebulizer Soln -) 1 amp NEB Q4H PRN PRN Reason: SHORT OF BREATH/WHEEZING Apixaban (Eliquis -) 5 mg PO BID [facility] Last Admin: 10/09/17 09:49 Dose: 5 mg Artificial Tears (Artificial Tears) 1 drop OD BID [facility] Last Admin: 10/09/17 09:49 Dose: 1 drop Bicalutamide (Casodex -) 50 mg PO DAILY [facility] Last Admin: 10/09/17 09:49 Dose: 50 mg Diltiazem HCl (Cardizem Injection -) 10 mg IVPUSH Q4H PRN PRN Reason: TACHYCARDIA Last Admin: 10/07/17 09:21 Dose: 10 mg Diltiazem HCl (Cardizem Cd -) 180 mg PO DAILY [facility] Last Admin: 10/09/17 09:49 Dose: 180 mg Donepezil HCl (Aricept -) 10 mg PO HS [facility] Last Admin: 10/08/17 22:10 Dose: 10 mg Dextrose/Lactated Ringer's (D5-Lr+20 Meq Kcl -) 20 meq in 1,000 mls @ 83 mls/ hr IV ASDIR [facility] Last Admin: 10/08/17 17:50 Dose: 83 mls/hr Midodrine (Proamatine -) 10 mg PO TID-MID [facility] Last Admin: 10/09/17 09:48 Dose: 10 mg Ondansetron HCl (Zofran Injection) 4 mg IVPUSH Q6H PRN PRN Reason: NAUSEA AND/OR VOMITING Pantoprazole Sodium (Protonix Iv) 40 mg IVPUSH DAILY [facility] Last Admin: 10/09/17 09:48 Dose: 40 mg Quetiapine Fumarate (Seroquel -) 25 mg PO HS [facility] Last Admin: 10/08/17 22:11 Dose: 25 mg Thiamine HCl (Vitamin B1 -) 100 mg PO HS [facility] Last Admin: 10/08/17 22:11 Dose: 100 mg - Objective Vital Signs: Vital Signs Temperature 97.6 F 10/09/17 05:55 Pulse Rate 71 10/09/17 05:55 Respiratory Rate 20 10/09/17 05:55 Blood Pressure 131/71 10/09/17 05:55 O2 Sat by Pulse Oximetry (%) 97 10/08/17 21:00 Constitutional: Yes: Well Nourished, No Distress, Calm Cardiovascular: Yes: Pulse Irregular Respiratory: Yes: Regular Musculoskeletal: Yes: WNL Extremities: Yes: WNL Edema: No Peripheral Pulses WNL: Yes Neurological: Yes: Alert, Oriented, Other (Forgetful) Psychiatric: Yes: Alert, Oriented Labs: CBC, BMP 10/09/17 06:00 10/09/17 06:00 INR, PTT INR 1.12 (0.82-1.09) 10/04/17 15:15 Problem List - Problems (1) Fall Assessment/Plan: -likely secondary to orthostatic hypotension -physical therapy Code(s): W19.XXXA - UNSPECIFIED FALL, INITIAL ENCOUNTER Qualifiers: Encounter type: subsequent encounter Qualified Code(s): W19.XXXD - Unspecified fall, subsequent encounter (2) Weight loss Assessment/Plan: -EGD and colonoscopy -secondary to disease process polyp pathology shows tubular adenoma Code(s): R63.4 - ABNORMAL WEIGHT LOSS (3) Atrial fibrillation Assessment/Plan: -Chronic -on eliquis -Cardizem restarted at 180mg, decrease to 120 mg po daily Code(s): I48.91 - UNSPECIFIED ATRIAL FIBRILLATION Qualifiers: Atrial fibrillation type: persistent Qualified Code(s): I48.1 - Persistent atrial fibrillation (4) Orthostatic hypotension Assessment/Plan: -similar episodes in the past -juice's BLLE -midodrine? Code(s): I95.1 - ORTHOSTATIC HYPOTENSION (5) Colon polyp Code(s): K63.5 - POLYP OF COLON (6) Status post partial colectomy Assessment/Plan: -seen by surgery -tolerating full liquids Code(s): Z90.49 - ACQUIRED ABSENCE OF OTHER SPECIFIED PARTS OF DIGESTIVE TRACT Assessment/Plan see problem list Physical therapy GI prophylaxis
--- NOTE | 2017-10-09 12:24 | PN ---
Progress Note (short form) - Note Progress Note: Renal follow up for CKD Pt seen and examined at the bedside awake and alert no acute complaints on IVF tolerating advancing diet Vital Signs Temperature 97.6 F 10/09/17 05:55 Pulse Rate 71 10/09/17 05:55 Respiratory Rate 20 10/09/17 05:55 Blood Pressure 131/71 10/09/17 05:55 O2 Sat by Pulse Oximetry (%) 97 10/08/17 21:00 Intake & Output 10/06/17 10/07/17 10/08/17 10/09/17 23:59 23:59 23:59 23:59 Intake Total 1328 1296 1665 1062 Output Total 1400 1300 225 200 Balance -72 -4 1440 862 NAD RRR CTA soft NT No LE edema CBC, BMP 10/09/17 06:00 10/09/17 06:00 Current Medications Acetaminophen (Tylenol -) 650 mg PO Q6H PRN PRN Reason: PAIN Albuterol Sulfate (Ventolin 0.083% Nebulizer Soln -) 1 amp NEB Q4H PRN PRN Reason: SHORT OF BREATH/WHEEZING Apixaban (Eliquis -) 5 mg PO BID [facility] Last Admin: 10/09/17 09:49 Dose: 5 mg Artificial Tears (Artificial Tears) 1 drop OD BID [facility] Last Admin: 10/09/17 09:49 Dose: 1 drop Bicalutamide (Casodex -) 50 mg PO DAILY [facility] Last Admin: 10/09/17 09:49 Dose: 50 mg Diltiazem HCl (Cardizem Injection -) 10 mg IVPUSH Q4H PRN PRN Reason: TACHYCARDIA Last Admin: 10/07/17 09:21 Dose: 10 mg Diltiazem HCl (Cardizem Cd -) 120 mg PO DAILY [facility] Donepezil HCl (Aricept -) 10 mg PO HS [facility] Last Admin: 10/08/17 22:10 Dose: 10 mg Dextrose/Lactated Ringer's (D5-Lr+20 Meq Kcl -) 20 meq in 1,000 mls @ 83 mls/ hr IV ASDIR [facility] Last Admin: 10/08/17 17:50 Dose: 83 mls/hr Midodrine (Proamatine -) 10 mg PO TID-MID [facility] Last Admin: 10/09/17 09:48 Dose: 10 mg Ondansetron HCl (Zofran Injection) 4 mg IVPUSH Q6H PRN PRN Reason: NAUSEA AND/OR VOMITING Pantoprazole Sodium (Protonix Iv) 40 mg IVPUSH DAILY [facility] Last Admin: 10/09/17 09:48 Dose: 40 mg Quetiapine Fumarate (Seroquel -) 25 mg PO HS [facility] Last Admin: 10/08/17 22:11 Dose: 25 mg Thiamine HCl (Vitamin B1 -) 100 mg PO HS [facility] Last Admin: 10/08/17 22:11 Dose: 100 mg 77 year old gentleman with PMhx fo CKD, SILAS (now improved), Hypertension, DM, COPD, Dementia, Prostate Ca, CVA, Afib with RVR who presented with fall at ID and found to have weight loss with Cr of 1.7. #CKD Stage 3 with Hx of SILAS from ATN Cr stable at this time continue IVF as needed until pt tolerated full regular diet #s/p FAll supportive care #Weight Loss/Colon Polyps s/p hemicolectomy surgical follow up advance diet as tolerated #Orthostatic Hypotension repat orthostatics on Midodrine #UTI s/p Abx Donta Carmona DO
[2017-10-09] MEDS: D5-LR+20 MEQ KCL - 20 MEQ/1,000 ML INFUS.BAG IV SCH (14:59)
--- NOTE | 2017-10-09 15:18 | PATH ---
Surgical Pathology Report Patient Name: EFREN BARKSDALE [facility]. Rec. #: [id number] /Age/Gender: 1940 (Age: 77) / M Account: [id number] Location: 4 SO PEDS/ADOL Taken: 10/04/2017 Received: 10/08/2017 Reported: 10/09/2017 Physicians: Maurilio Champion M.D. Specimen(s) Received PORTION OF TRANSVERSE COLON Clinical History Incompletely resected colon polyp (path of part of it was tubular adenoma) Final Diagnosis TRANSVERSE COLON, PARTIAL TRANSVERSE COLECTOMY: TUBULAR ADENOMA. BIOPSY SITE/TATOOED AREA IDENTIFIED. SURGICAL MARGINS ARE VIABLE AND NEGATIVE FOR NEOPLASM. Electronically Signed Alley Cui M.D. Gross Description Received in formalin labeled "portion of transverse colon," is a 6 cm in length portion of colon with one open mucosal margin and one stapled mucosal margin. There is a suture present at the stapled end marking the distal aspect, per the surgeon. The serosa is valdez-tapia and smooth with moderate attached pericolonic adipose tissue. Sectioning reveals a 1.7 x 1.2 cm valdez, polypoid lesion 1.2 cm from the proximal mucosal margin. The lesion appears confined to the mucosa. There is a tattoo identified in the submucosal area of the lesion. The remaining mucosa is valdez with normal folds. Rehab Director Occupational Therapist sections are submitted in 8 cassettes as follows: 1-proximal mucosal margin; 2-distal mucosal margin; 0-7-ppqefiky submitted polyp; 8-uninvolved mucosa. 10/08/2017 [facility]10/08/2017
--- NOTE | 2017-10-09 18:41 | PN ---
Progress Note, Physician History of Present Illness: s/p partial transverse colectomy resting comfortably seen and examined in bed no c/o abdominal pain + flatus and loose/liquid BMs, less abd distention tolerating full liquids, wants food "a hamburger" was OOB to chair twice today, less confused - Current Medication List Current Medications: Active Medications Acetaminophen (Tylenol -) 650 mg PO Q6H PRN PRN Reason: PAIN Albuterol Sulfate (Ventolin 0.083% Nebulizer Soln -) 1 amp NEB Q4H PRN PRN Reason: SHORT OF BREATH/WHEEZING Apixaban (Eliquis -) 5 mg PO BID [facility] Last Admin: 10/09/17 09:49 Dose: 5 mg Artificial Tears (Artificial Tears) 1 drop OD BID [facility] Last Admin: 10/09/17 09:49 Dose: 1 drop Bicalutamide (Casodex -) 50 mg PO DAILY [facility] Last Admin: 10/09/17 09:49 Dose: 50 mg Diltiazem HCl (Cardizem Injection -) 10 mg IVPUSH Q4H PRN PRN Reason: TACHYCARDIA Last Admin: 10/07/17 09:21 Dose: 10 mg Diltiazem HCl (Cardizem Cd -) 120 mg PO DAILY [facility] Donepezil HCl (Aricept -) 10 mg PO HS [facility] Last Admin: 10/08/17 22:10 Dose: 10 mg Dextrose/Lactated Ringer's (D5-Lr+20 Meq Kcl -) 20 meq in 1,000 mls @ 83 mls/ hr IV ASDIR [facility] Last Admin: 10/09/17 14:59 Dose: 83 mls/hr Midodrine (Proamatine -) 10 mg PO TID-MID [facility] Last Admin: 10/09/17 17:23 Dose: 10 mg Ondansetron HCl (Zofran Injection) 4 mg IVPUSH Q6H PRN PRN Reason: NAUSEA AND/OR VOMITING Pantoprazole Sodium (Protonix Iv) 40 mg IVPUSH DAILY [facility] Last Admin: 10/09/17 09:48 Dose: 40 mg Quetiapine Fumarate (Seroquel -) 25 mg PO HS [facility] Last Admin: 10/08/17 22:11 Dose: 25 mg Thiamine HCl (Vitamin B1 -) 100 mg PO HS [facility] Last Admin: 10/08/17 22:11 Dose: 100 mg - Objective Vital Signs: Vital Signs Temperature 97.8 F 10/09/17 11:00 Pulse Rate 82 10/09/17 14:18 Respiratory Rate 20 10/09/17 11:00 Blood Pressure 146/80 10/09/17 14:18 O2 Sat by Pulse Oximetry (%) 98 10/09/17 09:00 Constitutional: Yes: Well Nourished, No Distress, Calm Eyes: Yes: Conjunctiva Clear, EOM Intact HENT: Yes: Atraumatic, Normocephalic, Other (upper dentures not in) Gastrointestinal: Yes: Soft, Distention (moderate but less), Hypoactive Bowel Sounds, Tenderness (minimal incisional and left side) Extremities: No: Cool, Cyanosis Integumentary: Yes: Incision (midline). No: Rash Wound/Incision: Yes: Clean/Dry, Well Approximated, [place] Intact (midline abdomen, except one out in middle portion, no skin separation), Open to air, Reddened (small area of pink at lower pole of incision, no induration, not particularly tender, no drainage) Neurological: Yes: Alert (wakes fairly easily), Oriented (seemed appropriate), Unsteady Gait ("I had a little trouble walking today") Labs: CBC, BMP 10/09/17 06:00 10/09/17 06:00 K low Na, Cl high Cr below baseline Surgical pathology report back: colon polyp is tubular adenoma Problem List - Problems (1) Colon polyps Assessment/Plan: POD5 s/p partial transverse colectomy for incompletely endoscopically resected polyp path is tubular adenoma overall doing well tolerating full liquids ok for diet in am encourage OOB/ambulation with assistance PT on board - will need to eval if pt may be able to return to [facility] for short term rehab until seen by surgery in followup ultimately plans to live with daughter [address] hours north in [facility] postop instructions in d/c plan Eliquis restarted by cardiology GI/DVT prophylaxis pain meds prn - Tylenol, not using continue IS and pulmonary toilet midline incision with elena c/d/i watch lytes follow labs voiding in toilet - recommend strict I/Os GI, cardio, renal following Code(s): K63.5 - POLYP OF COLON Qualifiers: Colon polyp type: adenomatous Colon location: transverse Qualified Code(s ): D12.3 - Benign neoplasm of transverse colon (2) Orthostatic hypotension Code(s): I95.1 - ORTHOSTATIC HYPOTENSION (3) Recurrent falls Code(s): R29.6 - REPEATED FALLS (4) Weight loss Code(s): R63.4 - ABNORMAL WEIGHT LOSS (5) History of open sigmoidectomy Code(s): Z98.890 - OTHER SPECIFIED POSTPROCEDURAL STATES; Z90.49 - ACQUIRED ABSENCE OF OTHER SPECIFIED PARTS OF DIGESTIVE TRACT (6) Atrial fibrillation Code(s): I48.91 - UNSPECIFIED ATRIAL FIBRILLATION Qualifiers: Atrial fibrillation type: persistent Qualified Code(s): I48.1 - Persistent atrial fibrillation (7) Chronic kidney disease (CKD) Code(s): N18.9 - CHRONIC KIDNEY DISEASE, UNSPECIFIED Qualifiers: Chronic kidney disease stage: stage 3 (moderate) Qualified Code(s): N18.3 - Chronic kidney disease, stage 3 (moderate) (8) HTN (hypertension) Code(s): I10 - ESSENTIAL (PRIMARY) HYPERTENSION Qualifiers: Hypertension type: essential hypertension Qualified Code(s): I10 - Essential (primary) hypertension (9) Hyperlipidemia associated with type 2 diabetes mellitus Code(s): E11.69 - TYPE 2 DIABETES MELLITUS WITH OTHER SPECIFIED COMPLICATION; E78.5 - HYPERLIPIDEMIA, UNSPECIFIED (10) 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
[2017-10-09] MEDS: DONEPEZIL HCL 10 MG TABLET (FP) PO SCH (22:46)
[2017-10-09] MEDS: THIAMINE HCL 100 MG TABLET (FP) PO SCH (22:46)
[2017-10-09] MEDS: QUEtiapine FUMARATE 25 MG TABLET (FP) PO SCH (22:46)
--- NOTE | 2017-10-10 10:29 | PN ---
Progress Note, Physician History of Present Illness: POD#6 partial transverse colectomy for incomplete endoscopically resected colon polyp/tubular adenoma, resting comfortable post-op, rate-controlled afib. Sensorium improved to baseline. - Current Medication List Current Medications: Active Medications Acetaminophen (Tylenol -) 650 mg PO Q6H PRN PRN Reason: PAIN Albuterol Sulfate (Ventolin 0.083% Nebulizer Soln -) 1 amp NEB Q4H PRN PRN Reason: SHORT OF BREATH/WHEEZING Apixaban (Eliquis -) 5 mg PO BID [facility] Last Admin: 10/09/17 22:46 Dose: 5 mg Artificial Tears (Artificial Tears) 1 drop OD BID [facility] Last Admin: 10/09/17 22:46 Dose: 1 drop Bicalutamide (Casodex -) 50 mg PO DAILY [facility] Last Admin: 10/09/17 09:49 Dose: 50 mg Diltiazem HCl (Cardizem Injection -) 10 mg IVPUSH Q4H PRN PRN Reason: TACHYCARDIA Last Admin: 10/07/17 09:21 Dose: 10 mg Diltiazem HCl (Cardizem Cd -) 120 mg PO DAILY [facility] Donepezil HCl (Aricept -) 10 mg PO HS [facility] Last Admin: 10/09/17 22:46 Dose: 10 mg Dextrose/Lactated Ringer's (D5-Lr+20 Meq Kcl -) 20 meq in 1,000 mls @ 83 mls/ hr IV ASDIR [facility] Last Admin: 10/09/17 14:59 Dose: 83 mls/hr Midodrine (Proamatine -) 10 mg PO TID-MID [facility] Last Admin: 10/09/17 17:23 Dose: 10 mg Ondansetron HCl (Zofran Injection) 4 mg IVPUSH Q6H PRN PRN Reason: NAUSEA AND/OR VOMITING Pantoprazole Sodium (Protonix Iv) 40 mg IVPUSH DAILY [facility] Last Admin: 10/09/17 09:48 Dose: 40 mg Quetiapine Fumarate (Seroquel -) 25 mg PO HS [facility] Last Admin: 10/09/17 22:46 Dose: 25 mg Thiamine HCl (Vitamin B1 -) 100 mg PO HS [facility] Last Admin: 10/09/17 22:46 Dose: 100 mg - Objective Vital Signs: Vital Signs Temperature 97.2 F L 10/10/17 06:00 Pulse Rate 86 10/10/17 06:00 Respiratory Rate 20 10/10/17 06:00 Blood Pressure 149/75 10/10/17 06:00 O2 Sat by Pulse Oximetry (%) 98 10/09/17 21:00 Constitutional: Yes: No Distress, Calm, Thin Neck: Yes: Supple Cardiovascular: Yes: Pulse Irregular Respiratory: Yes: Regular, Diminished Gastrointestinal: Yes: Normal Bowel Sounds, Soft Edema: No Labs: CBC, BMP 10/09/17 06:00 10/09/17 06:00 INR, PTT INR 1.12 (0.82-1.09) 10/04/17 15:15 - ....Imaging EKG: Report Reviewed (Tele: Afib rate-controlled) Problem List - Problems (1) Fall Code(s): W19.XXXA - UNSPECIFIED FALL, INITIAL ENCOUNTER Qualifiers: Encounter type: subsequent encounter Qualified Code(s): W19.XXXD - Unspecified fall, subsequent encounter (2) Weight loss Code(s): R63.4 - ABNORMAL WEIGHT LOSS (3) Adenocarcinoma of prostate Code(s): C61 - MALIGNANT NEOPLASM OF PROSTATE (4) Atrial fibrillation Code(s): I48.91 - UNSPECIFIED ATRIAL FIBRILLATION Qualifiers: Atrial fibrillation type: persistent Qualified Code(s): I48.1 - Persistent atrial fibrillation (5) Chronic kidney disease (CKD) Code(s): N18.9 - CHRONIC KIDNEY DISEASE, UNSPECIFIED Qualifiers: Chronic kidney disease stage: stage 3 (moderate) Qualified Code(s): N18.3 - Chronic kidney disease, stage 3 (moderate) (6) Diastolic CHF Code(s): I50.30 - UNSPECIFIED DIASTOLIC (CONGESTIVE) HEART FAILURE Qualifiers: Congestive heart failure chronicity: chronic Qualified Code(s): I50.32 - Chronic diastolic (congestive) heart failure (7) HTN (hypertension) Code(s): I10 - ESSENTIAL (PRIMARY) HYPERTENSION Qualifiers: Hypertension type: essential hypertension Qualified Code(s): I10 - Essential (primary) hypertension (8) Hypercholesterolemia Code(s): E78.00 - PURE HYPERCHOLESTEROLEMIA, UNSPECIFIED (9) Hypothyroidism Code(s): E03.9 - HYPOTHYROIDISM, UNSPECIFIED Qualifiers: Hypothyroidism type: unspecified Qualified Code(s): E03.9 - Hypothyroidism , unspecified (10) Orthostatic hypotension Code(s): I95.1 - ORTHOSTATIC HYPOTENSION (11) Status post orchiectomy Code(s): Z90.79 - ACQUIRED ABSENCE OF OTHER GENITAL ORGAN(S) (12) Status post partial colectomy Code(s): Z90.49 - ACQUIRED ABSENCE OF OTHER SPECIFIED PARTS OF DIGESTIVE TRACT (13) Tubular adenoma of colon Code(s): D12.6 - BENIGN NEOPLASM OF COLON, UNSPECIFIED Assessment/Plan Echocardiography dated 05/20/17 revealed normal LV size and systolic function with no significant valvular pathology 1. Post partial transverse colectomy for tubular adenoma POD # 6 2. CAD angina pectoris, stable 3. Diastolic LV dysfunction with class 0-I NYHA classification LV congestive heart failure, compensated/euvolemic 4. Permanent atrial fibrillation on chronic A/C currently off of NOAC's/Eliquis 5. HTN 6. 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 Hypothyroidism. 9. COPD/emphysema 10. CKD 11. Prostate carcinoma history with obstructive uropathy 12. Post orchiectomy 13. Anemia 14. Positional dizziness post mechanical fall and orthostatic hypotension PLAN: 1. Continue Cardizem CD 120 qd, on midodrine 10 tid 2. Resumed Eliquis 5 bid per surgery with close monitoring of CBC 3. Consider initiation of ACEI or ARBS with close monitoring of renal function unless it is absolutely contraindicated 4. Neuro-status evaluation and management as per the primary team 5. Advancing diet as tolerated, replete K 6. OOB - chair and/or ambulating with assistance, PT->SNF
[2017-10-10] MEDS ORDERED: PT OWN MED DRAWER 7, Y5N ONE ×3 (10:30→17:05)
[2017-10-10] MEDS: APIXABAN 5 MG TABLET PO SCH (10:35)
[2017-10-10] MEDS: BICALUTAMIDE 50 MG TABLET (FP) PO SCH (10:36)
[2017-10-10] MEDS: PANTOPRAZOLE SODIUM 40 MG VIAL IVPUSH SCH (10:36)
[2017-10-10] MEDS: MIDODRINE HCL 5 MG TABLET PO SCH ×3 (10:37→17:18)
--- NOTE | 2017-10-10 10:41 | PN ---
Progress Note, Physician Chief Complaint: Fall, orthostatic hypotension History of Present Illness: s/p partial transverse colectomy -seen by surgery tolerating low sodium diet refused to get OOB to chair with PT yesterday, requires minimal assistance of 2 p. Encouraged pt to get OOB with nurses AC Eliquis restarted -cardizem restarted on Aricept and seroquel Mid abdomen surgical incision with staple, dry and intact - Current Medication List Current Medications: Active Medications Acetaminophen (Tylenol -) 650 mg PO Q6H PRN PRN Reason: PAIN Albuterol Sulfate (Ventolin 0.083% Nebulizer Soln -) 1 amp NEB Q4H PRN PRN Reason: SHORT OF BREATH/WHEEZING Apixaban (Eliquis -) 5 mg PO BID [facility] Last Admin: 10/09/17 22:46 Dose: 5 mg Artificial Tears (Artificial Tears) 1 drop OD BID [facility] Last Admin: 10/09/17 22:46 Dose: 1 drop Bicalutamide (Casodex -) 50 mg PO DAILY [facility] Last Admin: 10/09/17 09:49 Dose: 50 mg Diltiazem HCl (Cardizem Injection -) 10 mg IVPUSH Q4H PRN PRN Reason: TACHYCARDIA Last Admin: 10/07/17 09:21 Dose: 10 mg Diltiazem HCl (Cardizem Cd -) 120 mg PO DAILY [facility] Donepezil HCl (Aricept -) 10 mg PO HS [facility] Last Admin: 10/09/17 22:46 Dose: 10 mg Dextrose/Lactated Ringer's (D5-Lr+20 Meq Kcl -) 20 meq in 1,000 mls @ 83 mls/ hr IV ASDIR [facility] Last Admin: 10/09/17 14:59 Dose: 83 mls/hr Midodrine (Proamatine -) 10 mg PO TID-MID [facility] Last Admin: 10/09/17 17:23 Dose: 10 mg Ondansetron HCl (Zofran Injection) 4 mg IVPUSH Q6H PRN PRN Reason: NAUSEA AND/OR VOMITING Pantoprazole Sodium (Protonix Iv) 40 mg IVPUSH DAILY [facility] Last Admin: 10/09/17 09:48 Dose: 40 mg Quetiapine Fumarate (Seroquel -) 25 mg PO HS [facility] Last Admin: 10/09/17 22:46 Dose: 25 mg Thiamine HCl (Vitamin B1 -) 100 mg PO HS [facility] Last Admin: 10/09/17 22:46 Dose: 100 mg - Objective Vital Signs: Vital Signs Temperature 97.2 F L 10/10/17 06:00 Pulse Rate 86 10/10/17 06:00 Respiratory Rate 20 10/10/17 06:00 Blood Pressure 149/75 10/10/17 06:00 O2 Sat by Pulse Oximetry (%) 98 10/09/17 21:00 Constitutional: Yes: Well Nourished, No Distress, Calm Cardiovascular: Yes: Pulse Irregular Respiratory: Yes: Regular Gastrointestinal: Yes: Normal Bowel Sounds, Soft, Tenderness (at the surgical site) Musculoskeletal: Yes: Muscle Weakness Extremities: Yes: WNL Edema: No Peripheral Pulses WNL: Yes Wound/Incision: Yes: [place] Intact, Open to air Neurological: Yes: Alert, Oriented Psychiatric: Yes: Alert, Oriented Labs: CBC, BMP 10/09/17 06:00 10/09/17 06:00 INR, PTT INR 1.12 (0.82-1.09) 10/04/17 15:15 Problem List - Problems (1) Fall Assessment/Plan: -likely secondary to orthostatic hypotension -physical therapy Code(s): W19.XXXA - UNSPECIFIED FALL, INITIAL ENCOUNTER Qualifiers: Encounter type: subsequent encounter Qualified Code(s): W19.XXXD - Unspecified fall, subsequent encounter (2) Weight loss Assessment/Plan: -EGD and colonoscopy -secondary to disease process polyp pathology shows tubular adenoma Code(s): R63.4 - ABNORMAL WEIGHT LOSS (3) Atrial fibrillation Assessment/Plan: -Chronic -on eliquis -Cardizem restarted at 180mg, decrease to 120 mg po daily Code(s): I48.91 - UNSPECIFIED ATRIAL FIBRILLATION Qualifiers: Atrial fibrillation type: persistent Qualified Code(s): I48.1 - Persistent atrial fibrillation (4) Orthostatic hypotension Assessment/Plan: -similar episodes in the past -juice's BLLE -midodrine? Code(s): I95.1 - ORTHOSTATIC HYPOTENSION (5) Colon polyp Code(s): K63.5 - POLYP OF COLON (6) Status post partial colectomy Assessment/Plan: -seen by surgery -tolerating low sodium diet Code(s): Z90.49 - ACQUIRED ABSENCE OF OTHER SPECIFIED PARTS OF DIGESTIVE TRACT (7) Hypokalemia Assessment/Plan: improved -start oral KCl Code(s): E87.6 - HYPOKALEMIA Assessment/Plan see problem list
[2017-10-10] MEDS ORDERED: POTASSIUM CHLORIDE ORAL LIQUID 20 MEQ/15 ML PO ONE (10:50)
[2017-10-10] MEDS: ARTIFICIAL TEARS (POLYVINYL ALCOHOL 1.4%) OPTH DROPS OD SCH (10:50)
--- NOTE | 2017-10-10 11:08 | PN ---
Progress Note (short form) - Note Progress Note: Renal follow up for CKD Pt seen and examined at the bedside awake and alert no acute complaints Vital Signs Temperature 97.2 F L 10/10/17 06:00 Pulse Rate 86 10/10/17 06:00 Respiratory Rate 20 10/10/17 06:00 Blood Pressure 149/75 10/10/17 06:00 O2 Sat by Pulse Oximetry (%) 98 10/09/17 21:00 Intake & Output 10/07/17 10/08/17 10/09/17 10/10/17 23:59 23:59 23:59 23:59 Intake Total 1296 1665 1262 750 Output Total 1300 225 850 Balance -4 1440 412 750 Weight 99.507 kg NAD RRR CTA soft NT No LE edema CBC, BMP 10/09/17 06:00 10/09/17 06:00 Current Medications Acetaminophen (Tylenol -) 650 mg PO Q6H PRN PRN Reason: PAIN Albuterol Sulfate (Ventolin 0.083% Nebulizer Soln -) 1 amp NEB Q4H PRN PRN Reason: SHORT OF BREATH/WHEEZING Apixaban (Eliquis -) 5 mg PO BID [facility] Last Admin: 10/10/17 10:35 Dose: 5 mg Artificial Tears (Artificial Tears) 1 drop OD BID [facility] Last Admin: 10/10/17 10:50 Dose: Not Given Bicalutamide (Casodex -) 50 mg PO DAILY [facility] Last Admin: 10/10/17 10:36 Dose: 50 mg Diltiazem HCl (Cardizem Injection -) 10 mg IVPUSH Q4H PRN PRN Reason: TACHYCARDIA Last Admin: 10/07/17 09:21 Dose: 10 mg Diltiazem HCl (Cardizem Cd -) 120 mg PO DAILY [facility] Last Admin: 10/10/17 10:35 Dose: 120 mg Donepezil HCl (Aricept -) 10 mg PO HS [facility] Last Admin: 10/09/17 22:46 Dose: 10 mg Dextrose/Lactated Ringer's (D5-Lr+20 Meq Kcl -) 20 meq in 1,000 mls @ 83 mls/ hr IV ASDIR [facility] Last Admin: 10/09/17 14:59 Dose: 83 mls/hr Midodrine (Proamatine -) 10 mg PO TID-MID [facility] Last Admin: 10/10/17 10:37 Dose: 10 mg Ondansetron HCl (Zofran Injection) 4 mg IVPUSH Q6H PRN PRN Reason: NAUSEA AND/OR VOMITING Pantoprazole Sodium (Protonix Iv) 40 mg IVPUSH DAILY [facility] Last Admin: 10/10/17 10:36 Dose: 40 mg Potassium Chloride (Potassium Chloride Oral Liquid) 20 meq PO DAILY [facility] Quetiapine Fumarate (Seroquel -) 25 mg PO HS [facility] Last Admin: 10/09/17 22:46 Dose: 25 mg Thiamine HCl (Vitamin B1 -) 100 mg PO HS [facility] Last Admin: 10/09/17 22:46 Dose: 100 mg 77 year old gentleman with PMhx fo CKD, SILAS (now improved), Hypertension, DM, COPD, Dementia, Prostate Ca, CVA, Afib with RVR who presented with fall at [place] and found to have weight loss with Cr of 1.7. #CKD Stage 3 with Hx of SILAS from [facility] Renal function stable Cr below baseline on IVF, appears evolemic diet being advanced, if able to tolerate a good amount of his oral diet can d/c IVF #Weight Loss/Colon Polyps s/p hemicolectomy surgical follow up advance diet as tolerated #Orthostatic Hypotension remains orthostatic as of yesterday repeat orthostatics today continue midodrine #UTI s/p Abx Donta Carmona DO
[2017-10-10 11:36] LABS: BASO % 1.3 % (0-2.0); EOS % 4.6 % (0-4.5); HEMATOCRIT 27.4 % (35.4-49); HEMOGLOBIN 8.9 GM/dL (11.7-16.9); LYMPH % 10.4 % (8-40); MCH 29.1 pg (25.7-33.7); MCHC 32.6 g/dl (32.0-35.9); MEAN CELL VOLUME 89.3 fl (80-96); MEAN PLT VOLUME 7.4 fl (7.5-11.1); MONO % 7.2 % (3.8-10.2); NEUT % 76.5 % (42.8-82.8); PLATELET COUNT 311 K/MM3 (134-434); RBC 3.06 M/mm3 (4.00-5.60); RDW 12.7 % (11.9-15.9); WHITE BLOOD COUNT 12.2 K/mm3 (4.0-10.0)
[2017-10-10 12:04] LABS: ALK PHOS 68 U/L (45-117); ANION GAP 2 (8-16); BILIRUBIN,TOTAL 0.3 mg/dL (0.2-1.0); BLOOD UREA NITROGEN 8 mg/dL (7-18); CALCIUM 8.2 mg/dL (8.5-10.1); CHLORIDE 111 mmol/L (98-107); CO2 30 mmol/L (21-32); CREATININE 1.2 mg/dL (0.7-1.3); GLUCOSE,RANDOM 128 mg/dL (74-106); POTASSIUM 3.4 mmol/L (3.5-5.1); SGOT/AST 7 U/L (15-37); SGPT/ALT 10 U/L (12-78); SODIUM 143 mmol/L (136-145); TOT PROT 4.8 g/dl (6.4-8.2)
--- NOTE | 2017-10-10 12:20 | PN ---
Progress Note, Physician History of Present Illness: s/p partial transverse colectomy resting comfortably seen and examined sitting at edge of bed for lunch no c/o abdominal pain + flatus today, BM yesterday, less abd distention tolerating diet, no nausea per nursing, PT recommended pt return to [facility] before going home pathology back - polyp is tubular adenoma - Current Medication List Current Medications: Active Medications Acetaminophen (Tylenol -) 650 mg PO Q6H PRN PRN Reason: PAIN Albuterol Sulfate (Ventolin 0.083% Nebulizer Soln -) 1 amp NEB Q4H PRN PRN Reason: SHORT OF BREATH/WHEEZING Apixaban (Eliquis -) 5 mg PO BID [facility] Last Admin: 10/10/17 10:35 Dose: 5 mg Artificial Tears (Artificial Tears) 1 drop OD BID [facility] Last Admin: 10/10/17 10:50 Dose: Not Given Bicalutamide (Casodex -) 50 mg PO DAILY [facility] Last Admin: 10/10/17 10:36 Dose: 50 mg Diltiazem HCl (Cardizem Injection -) 10 mg IVPUSH Q4H PRN PRN Reason: TACHYCARDIA Last Admin: 10/07/17 09:21 Dose: 10 mg Diltiazem HCl (Cardizem Cd -) 120 mg PO DAILY [facility] Last Admin: 10/10/17 10:35 Dose: 120 mg Donepezil HCl (Aricept -) 10 mg PO HS [facility] Last Admin: 10/09/17 22:46 Dose: 10 mg Dextrose/Lactated Ringer's (D5-Lr+20 Meq Kcl -) 20 meq in 1,000 mls @ 83 mls/ hr IV ASDIR [facility] Last Admin: 10/09/17 14:59 Dose: 83 mls/hr Midodrine (Proamatine -) 10 mg PO TID-MID [facility] Last Admin: 10/10/17 10:37 Dose: 10 mg Ondansetron HCl (Zofran Injection) 4 mg IVPUSH Q6H PRN PRN Reason: NAUSEA AND/OR VOMITING Pantoprazole Sodium (Protonix Iv) 40 mg IVPUSH DAILY [facility] Last Admin: 10/10/17 10:36 Dose: 40 mg Potassium Chloride (Potassium Chloride Oral Liquid) 20 meq PO DAILY [facility] Quetiapine Fumarate (Seroquel -) 25 mg PO HS [facility] Last Admin: 10/09/17 22:46 Dose: 25 mg Thiamine HCl (Vitamin B1 -) 100 mg PO HS [facility] Last Admin: 10/09/17 22:46 Dose: 100 mg - Objective Vital Signs: Vital Signs Temperature 97.2 F L 10/10/17 06:00 Pulse Rate 86 10/10/17 06:00 Respiratory Rate 20 10/10/17 06:00 Blood Pressure 149/75 10/10/17 06:00 O2 Sat by Pulse Oximetry (%) 98 10/09/17 21:00 Constitutional: Yes: Well Nourished, No Distress, Calm Eyes: Yes: Conjunctiva Clear, EOM Intact HENT: Yes: Normocephalic, Other (elena at posterior left crown) Gastrointestinal: Yes: Soft, Abdomen, Obese (protuberant), Distention (mild-mod (after eating)), Tenderness (mild incisional only) Extremities: No: Cool, Cyanosis Integumentary: Yes: Incision (midline). No: Jaundice, Rash Wound/Incision: Yes: Clean/Dry, Well Approximated, Elena Intact (midline), Open to air Neurological: Yes: Alert, Oriented (seems appropriate, "I still get dizzy sometimes") Labs: CBC, BMP 10/10/17 11:23 10/10/17 11:23 CMP Sodium 143 mmol/L (136-145) 10/10/17 11:23 Potassium 3.4 mmol/L (3.5-5.1) L 10/10/17 11:23 Chloride 111 mmol/L (98-107) H 10/10/17 11:23 Carbon Dioxide 30 mmol/L (21-32) 10/10/17 11:23 Anion Gap 2 (8-16) L 10/10/17 11:23 BUN 8 mg/dL (7-18) 10/10/17 11:23 Creatinine 1.2 mg/dL (0.7-1.3) 10/10/17 11:23 Creat Clearance w eGFR 59.02 (>60) 10/10/17 11:23 POC Glucometer 96 UNITS (80-120) 10/05/17 22:52 Random Glucose 128 mg/dL (74-106) H D 10/10/17 11:23 Calcium 8.2 mg/dL (8.5-10.1) L 10/10/17 11:23 Phosphorus 3.5 mg/dL (2.5-4.9) 10/03/17 07:00 Magnesium 1.9 mg/dL (1.8-2.4) 10/08/17 05:35 Iron 30 ug/dL (38-169) L 09/30/17 11:20 TIBC 173 ug/dL (250-450) L 09/30/17 11:20 Iron Saturation 17 % (15-55) 09/30/17 11:20 Total Bilirubin 0.3 mg/dL (0.2-1.0) D 10/10/17 11:23 AST 7 U/L (15-37) L 10/10/17 11:23 ALT 10 U/L (12-78) L 10/10/17 11:23 Alkaline Phosphatase 68 U/L (45-117) 10/10/17 11:23 Creatine Kinase 31 IU/L (39-308) L 10/04/17 15:15 Troponin I < 0.02 ng/ml (0.00-0.05) 10/04/17 15:15 B-Natriuretic Peptide 1374.06 pg/ml (5-450) H 09/28/17 09:55 Total Protein 4.8 g/dl (6.4-8.2) L 10/10/17 11:23 Albumin 2.0 g/dl (3.4-5.0) L 10/10/17 11:23 Carcinoembryonic Ag 2.4 ng/mL (0.0-4.7) 10/03/17 07:00 Vitamin B12 1519 pg/ml (180-914) H D 09/30/17 09:12 Serum Folate 7 ng/ml (3.1-17.5) 09/30/17 09:12 TSH 2.72 uIU/ml (0.358-3.74) D 09/30/17 09:12 Free T4 1.28 ng/dl (0.76-1.16) H 09/30/17 09:12 Problem List - Problems (1) Colon polyps Assessment/Plan: POD6 s/p partial transverse colectomy for incompletely endoscopically resected polyp path is tubular adenoma overall doing well tolerating diet encourage OOB/ambulation with assistance PT on board - plan return to [facility] postop instructions in d/c plan - will see in office in 1-2 weeks for staple removal Eliquis restarted by cardiology GI/DVT prophylaxis pain meds prn - Tylenol, not using continue IS and pulmonary toilet midline incision with elena c/d/i watch lytes follow labs voiding in toilet - recommend strict I/Os GI, cardio, renal following Code(s): K63.5 - POLYP OF COLON Qualifiers: Colon polyp type: adenomatous Colon location: transverse Qualified Code(s ): D12.3 - Benign neoplasm of transverse colon (2) Orthostatic hypotension Code(s): I95.1 - ORTHOSTATIC HYPOTENSION (3) Recurrent falls Code(s): R29.6 - REPEATED FALLS (4) Weight loss Code(s): R63.4 - ABNORMAL WEIGHT LOSS (5) History of open sigmoidectomy Code(s): Z98.890 - OTHER SPECIFIED POSTPROCEDURAL STATES; Z90.49 - ACQUIRED ABSENCE OF OTHER SPECIFIED PARTS OF DIGESTIVE TRACT (6) Atrial fibrillation Code(s): I48.91 - UNSPECIFIED ATRIAL FIBRILLATION Qualifiers: Atrial fibrillation type: persistent Qualified Code(s): I48.1 - Persistent atrial fibrillation (7) Chronic kidney disease (CKD) Code(s): N18.9 - CHRONIC KIDNEY DISEASE, UNSPECIFIED Qualifiers: Chronic kidney disease stage: stage 3 (moderate) Qualified Code(s): N18.3 - Chronic kidney disease, stage 3 (moderate) (8) HTN (hypertension) Code(s): I10 - ESSENTIAL (PRIMARY) HYPERTENSION Qualifiers: Hypertension type: essential hypertension Qualified Code(s): I10 - Essential (primary) hypertension (9) Hyperlipidemia associated with type 2 diabetes mellitus Code(s): E11.69 - TYPE 2 DIABETES MELLITUS WITH OTHER SPECIFIED COMPLICATION; E78.5 - HYPERLIPIDEMIA, UNSPECIFIED (10) 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
--- NOTE | 2017-10-10 13:27 | DS ---
Physical Examination Vital Signs: Vital Signs Temperature 97.2 F L 10/10/17 06:00 Pulse Rate 86 10/10/17 06:00 Respiratory Rate 20 10/10/17 06:00 Blood Pressure 149/75 10/10/17 06:00 O2 Sat by Pulse Oximetry (%) 98 10/09/17 21:00 Constitutional: Yes: Well Nourished, No Distress, Calm Cardiovascular: Yes: Pulse Irregular Respiratory: Yes: Regular Gastrointestinal: Yes: Normal Bowel Sounds, Soft, Tenderness (at surgical site) Musculoskeletal: Yes: Muscle Weakness Extremities: Yes: WNL Edema: No Peripheral Pulses WNL: Yes Wound/Incision: Yes: Open to air Neurological: Yes: Alert, Oriented Psychiatric: Yes: Alert, Oriented Labs: CBC, BMP 10/10/17 11:23 10/10/17 11:23 Discharge Summary Reason For Visit: FALL Current Active Problems COPD (chronic obstructive pulmonary disease) (Acute) Colon polyp (Acute) Colon polyps (Acute) Fall (Acute) History of open sigmoidectomy (Acute) 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 (on chemotherapy as of 07/30) s/p BL scrotal orchiectomies (08/23) , CVA, and A-fib w/ RvR ( on Eliquis ) who arrives from outside nursing facility/[facility] with head injury 2/2 fall approximately 30 minutes [employer]. Attempting to use the urinal and became lightheaded when standing and fell with subsequent post head trauma. Denies LOC , and was on the ground for 2-3 minutes before nursing staff found patient and assisted him to wheelchair. Denies neck/back/ext/abdominal pain or trauma, tongue laceration, teeth avulsion, WALLS, N/V, vision change, tinnitus, new onset weakness, sensory disturbance. Denies fevers/chills, diarrhea, constipation. Denies alcohol use. Physical exam notable for 2 superficial posterior occipital lacerations 4 and 5 cm. Patient hypertensive 160/78. Will evaluate for intracerebral hemorrhage/hematoma. Will also workup patient for cause of lightheadedness. Suspect electrolyte vs. cardiac vs. infectious etiology. Postoperative instructions: You had a partial transverse colectomy on 10/04/[address] Micheal Thomas of [facility]. Activity: Resume your usual activities gradually, but no heavy exertion or lifting more than 10-15 pounds for 4-6 weeks. You may shower daily but no bath or swimming until skin incisions are healed; just pat the incision areas dry. Ryan should not need to be recovered with any dressings, unless you have been told otherwise. Eat lightly at first, but advance to your usual diet as tolerated. Pain: For pain, you may use Tylenol (acetaminophen) 1-2 pills every 6 hours as needed. Do not take more than 3000mg of acetaminophen in a day. Take medications as prescribed or indicated on the labeling. Follow-up: Call Dr. Thomas's office at [phone] to make your postop appointment (Saturday ~2 weeks after surgery as advised). Clinic is held in the [facility] on the first floor of [facility]. Call the office if you have: * increasing pain not responsive to pain medication * fever of 101F or higher * vomiting * unusual or increasing bleeding or drainage from wounds * increasing redness or swelling at wound sites * inability to urinate Also, see your primary medical doctor within 1-2 weeks. Condition: Stable - Instructions Diet, Activity, Other Instructions: Postoperative instructions: You had a partial transverse colectomy on 10/04/[address] Micheal Thomas of [facility]. Activity: Resume your usual activities gradually, but no heavy exertion or lifting more than 10-15 pounds for 4-6 weeks. You may shower daily but no bath or swimming until skin incisions are healed; just pat the incision areas dry. Ryan should not need to be recovered with any dressings, unless you have been told otherwise. Eat lightly at first, but advance to your usual diet as tolerated. Pain: For pain, you may use Tylenol (acetaminophen) 1-2 pills every 6 hours as needed. Do not take more than 3000mg of acetaminophen in a day. Take medications as prescribed or indicated on the labeling. Follow-up: Call Dr. Thomas's office at [phone] to make your postop appointment (Saturday ~2 weeks after surgery as advised). Clinic is held in the [facility] on the first floor of [facility]. Call the office if you have: * increasing pain not responsive to pain medication * fever of 101F or higher * vomiting * unusual or increasing bleeding or drainage from wounds * increasing redness or swelling at wound sites * inability to urinate Also, see your primary medical doctor within 1-2 weeks. Referrals: Maye Castro MD [Primary Care Provider] - Disposition: SENIOR CARE FACILITY - Home Medications Comprehensive Discharge Medication List: Ambulatory Orders Aa/Hydrolyzed Collagen, Whey [Lps Neutral Flavor Liquid] 960 ml PO DAILY Acetaminophen 650 mg PO QID PRN 09/28/17 Apixaban [Eliquis] 5 mg PO BID 09/28/17 Bicalutamide [Casodex] 50 mg PO DAILY 09/28/17 Diltiazem HCl [Cardizem LA] 240 mg PO DAILY 09/28/17 Donepezil HCl [Aricept] 10 mg PO HS 09/28/17 Hypromellose 0.5% Opth Soln [Artificial Tears] 1 drop OD BID 09/28/17 Pantoprazole Sodium 40 mg PO DAILY 09/28/17 Polyethylene Glycol 3350 [Gavilax] 17 gm PO DAILY 09/28/17 Quetiapine Fumarate [Seroquel -] 25 mg PO HS 09/28/17 Thiamine HCl [B-1] 100 mg PO HS 09/28/17 Acetaminophen [Tylenol .Regular Strength -] 650 mg PO Q6H PRN tablet 10/10/17 Midodrine HCl [Proamatine -] 10 mg PO TID-MID tablet 10/10/17 Potassium Chloride [Potassium Chloride Oral Liquid] 20 meq PO DAILY cup
[2017-10-10 15:11] VITALS: BP 143/75; PULSE 88; TEMP 97.7
[2017-10-11] MEDS ORDERED: POTASSIUM CHLORIDE ORAL LIQUID 20 MEQ/15 ML PO SCH (10:00)
--- NOTE | 2017-10-15 08:54 | OP ---
DATE OF OPERATION: 10/04/2017 PREOPERATIVE DIAGNOSIS: Incompletely endoscopically resected colon polyp ( tubular adenoma). POSTOPERATIVE DIAGNOSIS: Incompletely endoscopically resected colon polyp ( tubular adenoma). PROCEDURE: Partial transverse colectomy. SURGEON: Micheal Thomas MD COLLEGE SERVICE OFFICER: Jesús Cardona MD ASSISTANT FOREMAN: General endotracheal. ESTIMATED BLOOD LOSS: 200 mL. FLUIDS: Crystalloid 3 L. URINE OUTPUT: 300 mL. DRAINS: Included an NG tube and a [place], both placed intraoperatively. SPECIMENS: Portion of transverse colon to pathology. FINDINGS: Polyp in the transverse colon proximal to the splenic flexure. The segment was resected with a stapled anastomosis. DISPOSITION: Stable and extubated to PACU. INDICATIONS FOR PROCEDURE: Patient is a 77-year-old male with multiple medical problems including hypertension, hyperlipidemia, diabetes, Alzheimer's dementia, history of CVA, atrial fibrillation on Eliquis, diverticulitis with previous Yoni's and colostomy reversal, locally advanced prostate cancer, status post bilateral orchiectomies, chronic kidney disease with creatinine at baseline, status post bilateral ureteral stents, who had been a patient at [facility] for rehab and was close to discharge, when he sustained a fall on September 28, striking his head against a wall, prompting a visit to the emergency room, where he had a negative head CT and 2 posterior scalp lacerations stapled. He was found to have orthostatic hypotension, which apparently had been present on and off for several months, but he also complained of weight loss over the previous several months and underwent workup including EGD and colonoscopy, with findings of multiple colon polyps. Most of them were removed in their entirety, but 1 was seen at 60 cm which was approximately 3 cm in size with an umbilicated center, which was biopsied but could not be fully removed. Biopsies are just back, showing this particular polyp biopsies were a tubular adenoma, but Surgery was consulted for partial colectomy for total removal of the polyp. He has now been off his Eliquis for 48 hours and had a repeat bowel prep including oral antibiotics, and he now presents for partial left colectomy. Risks, benefits, and alternatives of the procedure including but not limited to bleeding, infection, intestinal injury, anastomotic leak, abscess, hernia, obstruction, and potential need for further procedures, and were discussed with the patient (and his daughter by phone). The patient had also had a previous sigmoid colectomy for diverticulitis with a previous colostomy and takedown, such that this is noted to be reoperative surgery and carries high risks of some of these complications. The patient does wish to proceed with surgery, and informed consent was signed for the same. Preoperative labs were acceptable, and the patient is brought to the OR for partial colectomy. OPERATIVE TECHNIQUE: The patient was brought to the operating room and laid supine on the operating table. Sequential compression devices were applied to bilateral lower extremities, and 2 g of Cefoxitin was given in the operating room as preoperative antibiotic. The patient had been on ceftriaxone for several days prior for a potential UTI, and Cefotetan was unavailable. After induction and intubation by Anesthesia, a nasogastric tube and Oviedo catheter were placed, which were left in at the end of the case. His abdomen was clipped of hair, prepped and draped in sterile fashion. A midline incision was made with a scalpel and carried into subcutaneous tissues with electrocautery until the abdominal wall fascia was identified along the length of the incision. The fascia was then also incised with electrocautery along most of the length of the incision. At the umbilicus he apparently had a small umbilical hernia, and it was noted through the preperitoneal fat that the peritoneum was entered in a very small spot. A fingertip was inserted through here to ensure entry into the peritoneal cavity and the absence of any immediately underlying adhesions. The peritoneum and remainder of the incision were opened along its length with electrocautery, with fingertips inside the abdomen to protect the bowel. The patient's previous incision had been a low transverse abdominal one, thus we did encounter several adhesions towards the lower aspect of the incision, but most of these were thin and consisted primarily of omentum as opposed to bowel. Adhesions were taken down with a combination of blunt and electrocautery dissection. Once we were able to clear enough adhesions from the inferior aspect of the incision on both sides to be able to identify and eviscerate some of the small bowel, attention was turned towards identifying the distal left colon, knowing that the sigmoid had already been removed. The colon was fairly easily identifiable along the left sidewall. Again, multiple adhesions of primarily omentum and some of the bowel were taken down from the anterior abdominal wall in the left lower quadrant with a combination of blunt and electrocautery dissection. Once we had identified the colon, it was palpated down into the pelvis. We were also aware of a polyp at 22 cm that had been removed, with the pathology of tubulovillous adenoma. Ultimately , we were able to identify an area in the pelvis and left lower quadrant of his previous anastomosis of the descending colon to the rectum. We also were able to identify a stent in the left ureter but decided not to dissect any further down into this area, as our understanding from our GI colleagues was that the polyp had been entirely resected, and the adhesions in the pelvis were too dense to safely attempt further dissection or resection. Attention was primarily turned to running the colon up the left side in an attempt to identify the polyp with the Alyssa ink tattoo that was reportedly at 60 cm, thought to be in the descending colon. It was apparent that the splenic flexure had likely already been taken down during the patient's previous surgery. The colon that was now on the left was from the left sidewall along the white line of Toldt with electrocautery, in order to facilitate mobilizing the colon into view , and it quickly became clear that we could see both the remainder of the descending colon right around a low splenic flexure to the transverse colon. The omentum was also mobilized off of the transverse colon, and we again searched for the area of tattoo, which was ultimately located in an area which appeared to be the distal transverse colon just prior to the current splenic flexure. At this point not only was some of the ink noticeable externally, but a small lump representing the likely incompletely resected polyp was palpable just inside the colon wall. Having identified the area of interest, we then chose an area for proximal resection just a few centimeters proximal to the polyp, and a window was made in the mesentery adjacent to the bowel wall with the tip of a clamp and cautery to allow the passage of a fingertip. A JEFFERSON-80 stapler was used to transect the proximal division line, and similarly an area a few centimeters just distal to the area of interest was identified, isolated, and transected after a window was created at the edge of the bowel wall in the mesentery for the stapler to pass through. This was also done with a JEFFERSON-80 stapler. The LigaSure impact device was then used to divide the mesentery between the 2 division lines. One larger vascular pedicle was tied with silk ligature, and once the specimen was entirely , it was set aside on the back table for inspection prior to being sent for pathology. Hemostasis was achieved throughout the procedure with electrocautery and occasional silk ties. Attention was then turned to creating the anastomosis, and a small portion of additional omentum and fat was trimmed off of the edges of the proximal and distal limbs. These were brought together [id number] in a functional end-to-end fashion, and a 3-0 silk stitch used to tack the 2 limbs together. Two holes weres created in the ends of the bowel next to the staple lines at the corners with electrocautery, through which another JEFFERSON-80 stapler was introduced, although not for its entire length , and used to create an anastomosis at the antimesenteric sides of the bowel. Once the colon anastomosis was created, the open ends were held up with Alberto clamps and a TA stapler used to close the enterotomy. An additional 3-0 silk stitch was placed in the crotch of the anastomosis, and the mesenteric defect was closed with a running 2-0 Vicryl suture. The anastomosis was palpated and noted to be adequate in size. Abdomen and pelvis were then irrigated with saline solution and hemostasis assured in all quadrants. The nasogastric tube was palpated in the patient's stomach and noted to be in good position and secured by Anesthesia. The omentum was drawn down over the bowels, which had been returned entirely to the abdominal cavity, and the fascia was closed with 2 No. 1 looped PDS running sutures starting from both the top and the bottom and meeting in the middle; then that was tacked down with a 3-0 Vicryl stitch. The incision was gently irrigated with saline solution and the skin was closed with elena. A dressing of gauze and Tegaderm was placed over this. The specimen was then examined on the back table and opened along part of its length to ensure the presence of the target polyp in the specimen. This was visualized and noted to be at least a couple of centimeters from the margin. The specimen was then passed off to be sent to pathology. Counts were correct at the end of the procedure. The patient was then awakened and extubated by Anesthesia. The NG tube and Ov[place]o were left in at the end of the case. The patient was returned to a stretcher and taken to the recovery room in stable condition, having tolerated the procedure well. Dr. Cardona was an essential botany laboratory assistant throughout the procedure, including facilitating entry into the abdominal cavity, retraction throughout the case, assistance with mobilization of the colon, and performing the resection and anastomosis as well as closing the abdomen. Micheal Thomas M.D. [id number] MTDD
== END 2017-10-10 18:20 | DRG 982 ==
LOC: JER 08:43 → JERBED 12:00 → J5S 14:03 → OBSVTOIN 15:55 → J4S 10-04 16:39
PROVIDERS: ADMIT Family Medicine; ATTEND Family Medicine
PROC: 0DJ08ZZ Inspection of Upper Intestinal Tract, Via Natural or Artificial Opening Endoscopic (ICD-10-PCS; 2017-10-01)
PROC: 0DJD8ZZ Inspection of Lower Intestinal Tract, Via Natural or Artificial Opening Endoscopic (ICD-10-PCS; 2017-10-01)
PROC: 0HQ0XZZ Repair Scalp Skin, External Approach (ICD-10-PCS; 2017-10-02)
PROC: 0DBK8ZX Excision of Ascending Colon, Via Natural or Artificial Opening Endoscopic, Diagnostic (ICD-10-PCS; 2017-10-02)
PROC: 0DBN8ZX Excision of Sigmoid Colon, Via Natural or Artificial Opening Endoscopic, Diagnostic (ICD-10-PCS; 2017-10-02)
PROC: 0DBM8ZX Excision of Descending Colon, Via Natural or Artificial Opening Endoscopic, Diagnostic (ICD-10-PCS; 2017-10-02)
PROC: 0DTL0ZZ Resection of Transverse Colon, Open Approach (ICD-10-PCS; principal; 2017-10-04 11:00)
DX: N39.0 Urinary tract infection, site not specified (principal); N17.9 Acute kidney failure, unspecified; I50.32 Chronic diastolic (congestive) heart failure; I13.0 Hypertensive heart and chronic kidney disease with heart failure and stage 1 through stage 4 chronic kidney disease, or unspecified chronic kidney disease; F05 Delirium due to known physiological condition; I48.1 Persistent atrial fibrillation; E87.0 Hyperosmolality and hypernatremia; C79.89 Secondary malignant neoplasm of other specified sites; N13.8 Other obstructive and reflux uropathy; J92.0 Pleural plaque with presence of asbestos; I95.1 Orthostatic hypotension; D12.6 Benign neoplasm of colon, unspecified; C61 Malignant neoplasm of prostate; E11.22 Type 2 diabetes mellitus with diabetic chronic kidney disease; G30.9 Alzheimer's disease, unspecified; J43.9 Emphysema, unspecified; F02.80 Dementia in other diseases classified elsewhere, unspecified severity, without behavioral disturbance, psychotic disturbance, mood disturbance, and anxiety; N18.3 Chronic kidney disease, stage 3 (moderate); S01.01XA Laceration without foreign body of scalp, initial encounter; W01.0XXA Fall on same level from slipping, tripping and stumbling without subsequent striking against object, initial encounter; Y93.89 Activity, other specified; Y92.121 Bathroom in nursing home as the place of occurrence of the external cause; Y99.8 Other external cause status; D12.2 Benign neoplasm of ascending colon; D12.4 Benign neoplasm of descending colon; D12.5 Benign neoplasm of sigmoid colon; K57.30 Diverticulosis of large intestine without perforation or abscess without bleeding; E78.5 Hyperlipidemia, unspecified; Z86.73 Personal history of transient ischemic attack (TIA), and cerebral infarction without residual deficits; R51 Headache; E78.00 Pure hypercholesterolemia, unspecified; Z87.891 Personal history of nicotine dependence; K74.60 Unspecified cirrhosis of liver; R63.4 Abnormal weight loss; Z68.26 Body mass index [BMI] 26.0-26.9, adult; D72.829 Elevated white blood cell count, unspecified; R29.6 Repeated falls; Z78.1 Physical restraint status; E87.6 Hypokalemia; D64.9 Anemia, unspecified; I48.2 Chronic atrial fibrillation; I25.118 Atherosclerotic heart disease of native coronary artery with other forms of angina pectoris
CPT/HCPCS: 36415; 70450-TC; 71010-TC; 72125-TC; 72170-TC; 80048; 80053; 81003; 81015; 82272; 82378; 82550; 82570; 82607; 82746; 83540; 83550; 83735; 83880; 84100; 84156; 84439; 84443; 84484; 85025; 85027; 85610; 86850; 86900; 86901; 87040; 87086; 88305-TC; 88309-TC; 90688; 93005; 93010; 94760; 97116-GP; 97161-GP; 99283-25; G0008; G0378; J1644